=== PATIENT | female | born 1970 | race Caucasian/White ===

== ENCOUNTER → 2018-01-01 12:25 | Outpatient (CLI) | payer OTHER, SELFPAY ==
--- NOTE | 2018-01-01 12:28 | BI_ITS ---
MAMMOGRAPHY - BILATERAL SCREENING REASON FOR EXAM: Female, 47 years old. Routine annual screening examination. PERTINENT HISTORY: Non-contributory. TECHNIQUE: Digital bilateral breast severo (3D mammographic acquisition) in the CC and MLO projections. 2-D mediolateral oblique (MLO) and craniocaudad (CC) views of both breasts were obtained. CAD: Full Field Digital Mammography with Computer Added Detection was performed. COMPARISON: Comparison is made with prior study dated August 20, 2016. FINDINGS: Breast Composition: There are scattered areas of fibroglandular density. There are no dominant masses or suspicious calcifications. No other significant abnormalities are identified. There has been no significant change since the prior study. BI/SCREENING MAMM (CAD), BILAT IMPRESSION: Stable bilateral screening mammogram. Yearly follow-up mammogram recommended. (A) ASSESSMENT CATEGORY: BIRADS Category 1: Negative. A letter regarding these results will be sent to the patient by the facility within 30 days. Approximately 10% of breast cancers are not detected by mammography. A normal mammogram should not delay biopsy of a clinically suspicious abnormality. [id number] Electronically Signed: Farhad Menjivar MD at 13:58 EDT Tel [phone], Service support ,
== END ==
PROVIDERS: Family Provider Nurse Practitioner; PCP Nurse Practitioner; Visit Provider Nurse Practitioner
DX: Z12.31 Encounter for screening mammogram for malignant neoplasm of breast (principal)
CPT/HCPCS: 77063; 77067

== ENCOUNTER → 2019-01-25 | Outpatient (CLI) | payer OTHER, SELFPAY ==
--- NOTE | 2019-01-25 16:23 | BI_ITS ---
MAMMOGRAPHY - BILATERAL SCREENING REASON FOR EXAM: Female, 48 years old. Routine annual screening examination. PERTINENT HISTORY: Grandmother with breast cancer. TECHNIQUE: Digital bilateral breast severo (3D mammographic acquisition) in the CC and MLO projections. 2-D mediolateral oblique (MLO) and craniocaudad (CC) views of both breasts were obtained. CAD: Full Field Digital Mammography with Computer Added Detection was performed. COMPARISON: Comparison is made with prior examination dated January 01, 2018 and August 20, 2016. FINDINGS: Breast Composition: There are scattered areas of fibroglandular density. There are no dominant masses or suspicious calcifications. No other significant abnormalities are identified. There has been no significant change since the prior study. BI/SCREENING MAMM (CAD), BILAT IMPRESSION: Stable bilateral screening mammogram. Yearly follow-up mammogram recommended. (A) ASSESSMENT CATEGORY: BIRADS Category 1: Negative. A letter regarding these results will be sent to the patient by the facility within 30 days. Approximately 10% of breast cancers are not detected by mammography. A normal mammogram should not delay biopsy of a clinically suspicious abnormality. [id number] Electronically Signed: Farhad Menjivar, at 8:06 EDT , Service support ,
== END | disposition home or self-care (01) ==
LOC: OPBI 16:22
PROVIDERS: Family Provider Nurse Practitioner; PCP Nurse Practitioner; Referring Provider Nurse Practitioner; Visit Provider Nurse Practitioner
DX: Z12.31 Encounter for screening mammogram for malignant neoplasm of breast (principal)
CPT/HCPCS: 77063; 77067

== ENCOUNTER → 2019-06-27 12:38 | Outpatient (CLI) | payer OTHER, SELFPAY ==
--- NOTE | 2019-06-27 12:43 | RAD_ITS ---
STUDY: X-RAY CHEST REASON FOR EXAM: Female, 49 years old. Cough. History of asthma. TECHNIQUE: PA and lateral views of the chest. COMPARISON: Comparison is made with prior study July 09, 2015. FINDINGS: There now is evidence of infiltration in the right lower lobe. Follow-up is recommended. There is no demonstrated pleural abnormality. Normal size heart. Normal mediastinum and vasquez. Normal visualized pulmonary arteries. Normal visualized aortic arch and descending thoracic aorta. Normal visualized thoracic spine. Normal visualized ribs, clavicles, and shoulders. There is no demonstrated abnormality of the visualized soft tissue structures of the upper abdomen. RAD/Chest PA and Lateral IMPRESSION: Right lower lobe infiltration. Follow-up is recommended. Electronically Signed: Farhad Menjivar, at 13:38 EDT , Service support ,
== END ==
PROVIDERS: Family Provider Nurse Practitioner; PCP Nurse Practitioner; Referring Provider Nurse Practitioner Gerontology; Visit Provider Nurse Practitioner Gerontology
DX: R05 Cough (principal)
CPT/HCPCS: 71046

== ENCOUNTER → 2020-04-23 12:04 | Outpatient (CLI) | payer OTHER, SELFPAY ==
--- NOTE | 2020-04-23 12:07 | BI_ITS ---
MAMMOGRAPHY - BILATERAL SCREENING REASON FOR EXAM: Female, 50 years old. Routine annual screening examination. PERTINENT HISTORY: Grandmother with breast cancer. TECHNIQUE: Digital bilateral breast stefania (3D mammographic acquisition) in the CC and MLO projections. 2-D mediolateral oblique (MLO) and craniocaudad (CC) views of both breasts were obtained. CAD: Full Field Digital Mammography with Computer Added Detection was performed. COMPARISON: Comparison is made with prior study dated 01/25/2019 and 01/01/2018. FINDINGS: Breast Composition: There are scattered areas of fibroglandular density. There are no dominant masses or suspicious calcifications. Stable small benign appearing bilateral axillary lymph nodes. No other significant abnormalities are identified. There has been no significant change since the prior study. BI/SCREEN MAMM (CAD) W/STEFANIA BILAT IMPRESSION: Stable bilateral screening mammogram. Yearly follow-up mammogram recommended. (A) ASSESSMENT CATEGORY: BIRADS Category 2: Benign. A letter regarding these results will be sent to the patient by the facility within 30 days. Approximately 10% of breast cancers are not detected by mammography. A normal mammogram should not delay biopsy of a clinically suspicious abnormality. [id number] Electronically Signed: Farhad Menjivar, at 13:03 EDT , Service support ,
== END ==
PROVIDERS: PCP Nurse Practitioner; Referring Provider Nurse Practitioner; Visit Provider Nurse Practitioner
DX: Z12.31 Encounter for screening mammogram for malignant neoplasm of breast (principal)
CPT/HCPCS: 77063; 77067

== ENCOUNTER 2021-10-16 15:26 | Outpatient (CLI) | payer OTHER, SELFPAY ==
--- NOTE | 2021-10-16 15:30 | BI_ITS ---
MAMMOGRAPHY - BILATERAL SCREENING REASON FOR EXAM: Female, 51 years old. Routine annual screening examination. PERTINENT HISTORY: Grandmother with breast cancer. TECHNIQUE: Digital bilateral breast stefania (3D mammographic acquisition) in the CC and MLO projections. 2-D mediolateral oblique (MLO) and craniocaudad (CC) views of both breasts were obtained. CAD: Full Field Digital Mammography with Computer Added Detection was performed. COMPARISON: Comparison is made with prior study dated 04/23/2020 and 01/25/2019. FINDINGS: Breast Composition: The breasts are almost entirely fatty. There are no dominant masses or suspicious calcifications. No other significant abnormalities are identified. There has been no significant change since the prior study. BI/SCRN MAMM (CAD)W/STEFANIA BILAT IMPRESSION: Stable bilateral screening mammogram. Yearly follow-up mammogram recommended. (A) ASSESSMENT CATEGORY: BIRADS Category 1: Negative. A letter regarding these results will be sent to the patient by the facility within 30 days. Approximately 10% of breast cancers are not detected by mammography. A normal mammogram should not delay biopsy of a clinically suspicious abnormality. [id number] Electronically Signed: Farhad Menjivar MD at 8:27 EST ,
== END 2021-10-16 23:59 | disposition short-term general hospital (02) ==
LOC: OPBI 15:27
PROVIDERS: PCP Nurse Practitioner; Visit Provider Nurse Practitioner
DX: Z12.31 Encounter for screening mammogram for malignant neoplasm of breast (principal)
CPT/HCPCS: 77063; 77067

== ENCOUNTER → 2022-02-21 | Outpatient (CLI) | payer OTHER, SELFPAY ==
[2022-02-21 15:17] LABS: Absolute Lymphocyte Count 1.72 X10^3/uL (0.83-4.51); Absolute Neutrophil Count 5.8 X10^3/uL (2.0-7.7); Basophil# 0.08 X10^3/uL; Basophil% 0.9 % (0-1); Eosinophil# 0.23 X10^3/uL; Eosinophils% 2.6 % (0-5); Hematocrit 39.4 % (37-47); Hemoglobin 13.1 g/dL (12.0-15.0); Lymphocyte # 1.72 X10^3/ul (0.83-4.51); Lymphocyte % 19.7 % (19-41); Mean Corp Hgb Conc 33.2 g/dL (32-36); Mean Corpuscular Hgb 31.7 pg (27.0-32.0); Mean Corpuscular Volume 95.4 fL (81-99); Mean Platelet Vol. 9.6 fl (6.2-12.0); Monocyte# 0.85 X10^3/uL; Monocyte% 9.8 % (0-10); NRBC Flagged by Analyzer 0 % (0-5); Neutrophil % 66.7 % (47-70); Platelet Count 227 K/mm3 (150-450); RBC Distribution Width CV 12.9 % (11.6-14.6); RBC Distribution Width SD 45.5 fl (35.1-43.9); Red Blood Count 4.13 M/mm3 (4.2-5.4); White Blood Count 8.7 K/mm3 (4.4-11.0)
== END | disposition home or self-care (01) ==
LOC: MTLAB 12:34
PROVIDERS: PCP Nurse Practitioner; Referring Provider Internal Medicine Pulmonary Disease; Visit Provider Internal Medicine Pulmonary Disease
DX: J45.40 Moderate persistent asthma, uncomplicated (principal)
CPT/HCPCS: 36415; 85025

== ENCOUNTER → 2022-04-08 | Outpatient (CLI) | payer OTHER, SELFPAY ==
[2022-04-08 15:36] LABS: Creatinine, Serum 0.75 mg/dL (0.55-1.02); EST Glomerular Filtration Rate 88 mL/min (>60); Est Glom Filt Rate - Afr Amer 106 mL/min (>60)
[2022-04-08 16:26] LABS: Anion Gap 8 (5-15); BUN 10 mg/dL (7-18); BUN/Creat Ratio 13.4 RATIO (10-20); Calcium,Total 9.2 mg/dL (8.5-10.1); Chloride 102 mmol/L (98-107); Glucose 87 mg/dL (74-106); Potassium 4.1 mmol/L (3.5-5.1); Sodium Level 136 mmol/L (136-145)
== END | disposition home or self-care (01) ==
LOC: MTLAB 13:08
PROVIDERS: PCP Nurse Practitioner Family; Referring Provider Internal Medicine Pulmonary Disease; Visit Provider Internal Medicine Pulmonary Disease
DX: U07.1 COVID-19 (principal)
CPT/HCPCS: 36415; 80048

== ENCOUNTER 2022-08-29 05:58 | Day surgery (SDC) | payer OTHER, SELFPAY ==
[2022-08-29] VITALS (12 sets, daily range): BP systolic 113–154; BP diastolic 62–92; PULSE 14–85; RESP 14–18; TEMP 36.1–36.7; O2SAT 96–100; BMI 38.6
[2022-08-29] MEDS: Lactated Ringers 1,000 ML 15 ML IV (06:44)
[2022-08-29 06:47] LABS: Internal QC Validated? YES +Cl - CLEAR BKGD; Pregnancy, Urine Negative Negative
--- NOTE | 2022-08-29 07:20 | RAD_ITS ---
STUDY: X-RAY - RIGHT ANKLE REASON FOR EXAM: Female, 52 years old. ANKLE ARTHROSCOPY, LATERAL STABILIZATION TECHNIQUE: 4 view(s) of the ankle. No exposure time in minutes: Seconds 46 seconds. COMPARISON: None. FINDINGS: Reason fluoroscopic lateral views are provided. In the field of view there is visualized circumscribed calcification posterior to the ankle joint. On one view there is a visualized hand and the [id number]. RAD/Ankle min 3 Views IMPRESSION: Image interpretation only Visualized right ankle and lateral view on fluoroscopy during a procedure. Electronically Signed: Shraddha La MD at 16:18 EST Reading Location ID and State: [facility] / [place] Tel , Service support ,
[2022-08-29] MEDS: Clindamycin 900 MG/50 ML BAG 75 MG IV (07:30)
[2022-08-29] MEDS: Bacitracin 500 UNITS/GM PACKET (09:25)
[2022-08-29] MEDS: Bupivacaine 0.25% 30 ML Vial (09:30)
--- NOTE | 2022-08-29 09:37 | PCM.OPRPT ---
Problems Associated Problem List Diagnoses (1) Ankle impingement syndrome, right: (2) Primary osteoarthritis, right ankle and foot: (3) Right ankle instability: (4) Ingrowing nail: Report of Operation Date of Procedure: 08/29/22 Pre-Operative Diagnosis: 1. Right anterior ankle impingement in setting of osteoarthritis 2. Right lateral ankle instability 3. Ingrowing toenail left medial hallux Post-Operative Diagnosis: Same Surgery/Procedure Performed:: Ankle arthroscopy right ankle Lateral ankle stabilization right Left medial hallux matrixectomy Description of Surgical Findings:: Patient had chronic left lateral ankle instability with previous history of osteochondral grafting to her talar dome when she was 18 years old she has had continued pinching pain to her anterior ankle with multiple arthroscopic debridements and a lateral ankle instability issue which frequently cause her her to trip and fall and feels unstable when walking throughout everyday life. MRI demonstrated remote sprains of the ATFL CFL ligaments with thinning of the articular cartilage and anterior ankle impingement. Decision was made for arthroscopic debridement and lateral ankle stabilization. Surgeon: Cheng Burrell hand grinder: None (zaria elizondo) Type of Anesthesia: General Special Medications: Preoperatively patient received a popliteal Specimen's removed: Note Drains: None Estimated Blood Loss (mL): Minimal Description of Procedure: Patient brought back the operating placed comfortably in supine position on the operating room table. Patient induced under general anesthesia. Preoperative patient received a right lower extremities popliteal block per anesthesia. All osseous prominences were offloaded prevent any compression neuropraxia's. Right lower extremity was position without any external rotation of the limb. Well-padded thigh tourniquet was applied. Right lower extremity was scrubbed prepped draped using typical aseptic manner. Right lower extremity was elevated exsanguinated tourniquet was inflated 300 mmHg total tourniquet time throughout the case was noted to be 72 minutes. Palpation of the anteromedial joint ankle joint just medial to the tibialis anterior was performed a stab incision was made with a #11 blade hemostats were used to deepen the incision down to the level of capsule capsule was penetrated with obturator and cannula fara scope was applied significant synovitis were noted the joint was insufflated with following saline at approximately 40 mmHg is noted to be significant chronic synovitis to the area 8-second portals made anterior lateral ankle joint avoiding the intermediate dorsal cutaneous nerve and tendon structures to that site. Synovitis was debrided for approximately 25 minutes improvement and anterior ankle joint impingement was noted floor with intraoperatively there is noted to be anterior articular cartilage thinning both on the talar and tibial components of the ankle joint. Incisions were flushed copious felix normal sterile saline and closed with 3-0 Prolene simple interrupted. Attention was taken to the lateral ankle which fluoroscopic imaging was used to assess the lateral ankle ligaments anterior drawer testing demonstrated significant stability the ankle as documented under fluoroscopic images. Lateral ankle incision was made in a curvilinear fashion over the distal tip of the fibula with a 15 blade this was deepened with blunt dissection down to the level of the extensor retinaculum and ATFL a full-thickness incision was made along this with the deep structures were protected by hemostats releasing the residual torn ATFL ligament as well as incompetent inferior extensor retinaculum. All neurovascular structures were identified and bluntly retracted and protected at this time. Talar dome anterior brace was placed anchor using manufactures guidelines and the anterior lateral talar dome. Using the guide. Next 2 fiber tacks were placed 1 cm apart along the inferior and just 1 cm superior along the distal tip of the fibula anterior surface. This performed using manufactures guidelines. These were passed through the ATFL ligament and through the residual periosteal flap and is attached to the fibula including the stump of the ATFL and inferior extensor retinaculum using a pants over vest technique. These were hand tied down and ankle stability was noted at this time Next the second anchor for the internal brace was placed in the fibula just superior here and in between the fiber tack placement this was placed using manufactures guidelines with the foot placed in a neutral position and the lateral ankle ligaments were noted to be reestablished with regards to ankle stability confirmed fluoroscopically. Should be noted the fiber tacks were secured with the foot placed in a dorsiflexed and everted position. Patient flushed with copious felix normal sterile saline. Tourniquet was let down. Subcutaneous deep closure simple interrupted buried 2-0 Vicryl skin closure performed with 3-0 Prolene horizontal mattress technique. Incision dressed with bacitracin Adaptic 4 x 4's Kerlix and a well-padded Soliman compression posterior splint. Attention was taken to the left foot which a medial hallux matrixectomy would be performed using a hallux block technique performed aseptically after the toe on the left side was prepped with Betadine paint 8 cc of quarter percent Marcaine plain were injected using standard hallux block technique. The medial and proximal nail folds were released as well as the nailbed was from the medial aspect of the nail plate using a spatula this was removed using hemostats site was curetted and then a matrixectomy was performed using electrocautery Bovie. Site was flushed copious felix normal saline stress with bacitracin 4 x 4's and Coban. Patient was transferred to PACU vital signs stable and vascular status intact all digits for further monitoring prior to discharge patient tolerated procedure and anesthesia well in apparent satisfactory condition should remain nonweightbearing for the next 2 weeks and progress to weightbearing in a cam boot patient will be followed up in 1 week at which time we will change her dressing.
== END 2022-08-29 14:01 | disposition home or self-care (01) ==
LOC: SDC 06:00 → AC 06:01
PROVIDERS: Anesthesiology; PCP Nurse Practitioner Family; Referring Provider Podiatrist; Visit Provider Podiatrist
PROC: (CPT 11750; principal; 2022-08-29 07:15)
DX: M19.071 Primary osteoarthritis, right ankle and foot (principal); M25.371 Other instability, right ankle; L60.0 Ingrowing nail; J45.909 Unspecified asthma, uncomplicated; M25.871 Other specified joint disorders, right ankle and foot
CPT/HCPCS: 28289; 01480; 29897; 73610; 76000; 81025; J7120; J2405

== ENCOUNTER → 2022-09-03 | Outpatient (CLI) | payer OTHER, SELFPAY ==
--- NOTE | 2022-09-03 14:12 | VDLE_ITS ---
Reason For Study: PAIN RIGHT LEFT GSV is normal. GSV is normal. CFV is compressible, spontaneous, phasic, CFV is compressible, spontaneous, phasic, competent and demonstrates normal competent, and demonstrates normal augmentation. augmentation. FV is compressible, spontaneous, phasic, FV is compressible, spontaneous, phasic, competent and demonstrates normal competent and demonstrates normal augmentation. augmentation. POP V is compressible, spontaneous, phasic, POP V is compressible, spontaneous, phasic, competent and demonstrates normal competent and demonstrates normal augmentation. augmentation. T/P Trunk is compressible. T/P Trunk is compressible. PTV is compressible. PTV is compressible. RT PerV is compressible. LT PerV is compressible. Procedure This is a venous duplex using B-mode, color flow and spectral Doppler. Exam performed in department. The study was technically difficult. A preliminary report was called and/or faxed to Dr. Burrell @ [phone]. VL/Venous Duplex US - Kael Extrem Interpretation Summary Deep veins of the lower extremities are bilaterally patent and compressible seg mentally. There is no evidence of deep vein thrombosis on either side. Valvular competence appears in tact within the proximal deep venous systems bilaterally. The great saphenous veins appear bila terally patent and compressible segmentally. Ordering Physician: Cheng Burrell Referring Physician: Zahraa Ivey Performed By: Myra Alvarez, MIACS, RVT
== END | disposition home or self-care (01) ==
LOC: CVS 14:10
PROVIDERS: PCP Nurse Practitioner Family; Referring Provider Podiatrist; Visit Provider Podiatrist
DX: R22.43 Localized swelling, mass and lump, lower limb, bilateral (principal)
CPT/HCPCS: 93970

== ENCOUNTER → 2022-09-25 | Outpatient (CLI) | payer OTHER, SELFPAY | END | disposition home or self-care (01) | PROVIDERS: PCP Nurse Practitioner Family; Visit Provider Podiatrist | DX: L03.114 Cellulitis of left upper limb (principal) | CPT/HCPCS: 87070; 87205 ==

== ENCOUNTER → 2022-11-12 | Outpatient (CLI) | payer OTHER, SELFPAY ==
[2022-11-12 08:32] LABS: Cholesterol 181 mg/dL (200); High Density Lipoprotein 67 mg/dL; Triglycerides 43 mg/dL; Very Low Density Lipoprotein 9 mg/dL (5-40)
[2022-11-12 08:45] LABS: PTHIN 61.7 pg/mL (18.4-80.1)
== END | disposition home or self-care (01) ==
LOC: LAB 06:40
PROVIDERS: PCP Nurse Practitioner Family; Referring Provider Nurse Practitioner Family; Visit Provider Nurse Practitioner Family
DX: R73.01 Impaired fasting glucose (principal); E78.5 Hyperlipidemia, unspecified; E55.9 Vitamin D deficiency, unspecified
CPT/HCPCS: 36415; 80061; 83036; 83970

== ENCOUNTER → 2023-02-26 | Outpatient (CLI) | payer OTHER, SELFPAY ==
--- NOTE | 2023-02-26 12:43 | BI_ITS ---
MAMMOGRAPHY - BILATERAL SCREENING REASON FOR EXAM: Female, 52 years old. Routine annual screening examination. PERTINENT HISTORY: Grandmother with breast cancer. TECHNIQUE: Digital bilateral breast stefania (3D mammographic acquisition) in the CC and MLO projections. 2-D mediolateral oblique (MLO) and craniocaudad (CC) views of both breasts were obtained. CAD: Full Field Digital Mammography with Computer Added Detection was performed. COMPARISON: Comparison is made with prior study of October 16, 2021 and April 23, 2020. FINDINGS: Breast Composition: There are scattered areas of fibroglandular density. There are no dominant masses or suspicious calcifications. No other significant abnormalities are identified. There has been no significant change since the prior study. BI/SCRN MAMM (CAD)W/STEFANIA BILAT IMPRESSION: Stable bilateral screening mammogram. Yearly follow-up mammogram recommended. (A) ASSESSMENT CATEGORY: BIRADS Category 1: Negative. A letter regarding these results will be sent to the patient by the facility within 30 days. Approximately 10% of breast cancers are not detected by mammography. A normal mammogram should not delay biopsy of a clinically suspicious abnormality. [id number] Electronically Signed: Farhad Menjivar MD at 14:51 EDT ,
== END | disposition home or self-care (01) ==
LOC: OPBI 12:40
PROVIDERS: PCP Nurse Practitioner Family; Referring Provider Nurse Practitioner Family; Visit Provider Nurse Practitioner Family
DX: Z12.31 Encounter for screening mammogram for malignant neoplasm of breast (principal); Z80.3 Family history of malignant neoplasm of breast
CPT/HCPCS: 77063; 77067

== ENCOUNTER → 2023-03-14 | Outpatient (CLI) | payer OTHER, SELFPAY ==
--- NOTE | 2023-03-14 08:54 | MRI_ITS ---
INDICATION: pain ax 3 months, worse x 1 month, pain location changes with different movenments EXAMINATION: MRI - LEFT MR Knee W/O Contrast TECHNIQUE: Multiplanar and multisequence MR images of the LEFT knee. IV Contrast Dosage and Agent: None. COMPARISON: March 21, 2013 left knee MRI. March 04, 2023, knee radiograph. FINDINGS: BONE: No fracture or abnormal bone marrow signal. JOINT: Moderate effusion with mild synovial hypertrophy. No focal low signal intra-articular body. Fat lobule within 2.4 x 1.6 x 2.9 cm Sanchez''s cyst.. MUSCLES: Pes anserine tendons, semimembranosus, gastrocnemius tendons are intact.. CRUCIATE LIGAMENTS: Anterior and posterior cruciate ligaments are intact. PATELLOFEMORAL COMPARTMENT: The quadriceps and patellar tendons are intact. Patellofemoral ligaments are intact. Lateral patellar facet chondral fissure noted, grade 2 without subchondral edema. Fraying along the medial patellar facet chondral surface, grade 2. MEDIAL COMPARTMENT: Intact meniscus. Thickening of the proximal medial collateral ligament compatible with prior injury with mild edema along the superficial margin. Mild diffuse chondral thinning without focal full-thickness loss or subchondral edema. LATERAL COMPARTMENT: Intact meniscus. Intact lateral collateral ligament complex and popliteus. Mild diffuse chondral thinning without full thickness chondral loss or subchondral edema. MRI/Lower Ext Joint Only (Routine) IMPRESSION: Nonspecific moderate knee joint effusion with 2.9 cm Sanchez''s cyst. 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 No subchondral edema. Sequela of prior MCL injury with mild edema along the superficial margin. Cannot exclude grade 1 MCL sprain if there is been new injury. Electronically Signed: Mitch Grider MD at 8:54 EDT ,
== END | disposition home or self-care (01) ==
LOC: MRI 08:44
PROVIDERS: PCP Nurse Practitioner Family; Referring Provider Orthopaedic Surgery; Visit Provider Orthopaedic Surgery
DX: M23.90 Unspecified internal derangement of unspecified knee (principal)
CPT/HCPCS: 73721

== ENCOUNTER → 2023-06-26 | Outpatient (CLI) | payer OTHER, SELFPAY ==
[2023-06-26 09:00] LABS: Follicle Stimulating Hormone 60.1 mIU/mL; Luteinizing Hormone 22.4 mIU/mL; Prolactin 24.4 ng/mL; Thyroid Stim Hormone (TSH) 2.16 uIU/mL (0.358-3.74)
[2023-06-27 04:07] LABS: DHEA Sulfate 10.2 ug/dL (41.2-243.7)
== END | disposition home or self-care (01) ==
LOC: LAB 07:27
PROVIDERS: PCP Nurse Practitioner Family; Referring Provider Nurse Practitioner Family; Visit Provider Nurse Practitioner Family
DX: N95.1 Menopausal and female climacteric states (principal)
CPT/HCPCS: 36415; 82627; 83001; 83002; 84146; 84443; 82626

== ENCOUNTER → 2023-08-11 | Outpatient (CLI) | payer OTHER, SELFPAY ==
--- NOTE | 2023-08-11 15:19 | BD_ITS ---
STUDY: DUAL ENERGY X-RAY ABSORPTIOMETRY / DXA REASON FOR EXAM: Female, 53 years old. [id number] TECHNIQUE: Bone Mineral Density (BMD) measurements of lumbar spine and bilateral hips were obtained. COMPARISON: None. FINDINGS: Lumbar Spine (L1-L4): g/cm2 (1.383) / T-score (3.1) / Z-score (3.9) Findings are suggestive of normal bone density with a low fracture risk. Left Femur Total: g/cm2 (1.171) / T-score (1.9) / Z-score (2.4) Left Femoral Neck: g/cm2 (1.086) / T-score (2.1) / Z-score (3.0) Right Femur Total: g/cm2 (1.214) / T-score (2.2) / Z-score (2.7) Right Femoral Neck: g/cm2 (1.133) / T-score (2.6) / Z-score (3.4) BD/Dexa Bone Density Study IMPRESSION: The patient is considered normal as outlined below according to World Kael Organization (WHO) criteria with a low fracture risk. Reference Information: The T-score is the number of standard deviations above or below the standard which is normal for young adults at their peak bone mineral density. The World Health Organization (WHO) interprets the T-scores as follows: Above -1 Normal bone density Between -1 and -2.5 Osteopenia Equal to / or below -2.5 Osteoporosis As a practical clinical guideline, osteopenia may be graded as follows: Mild -1 through -1.5 Moderate -1.6 through -2.0 Severe -2.1 through -2.4 The Z-score is the number of standard deviations above or below age-matched controls. A Z-score of less than -1.5 would be considered abnormal. References: 1. NIH Osteoporosis and Related Bone Diseases www osteo.org 2. International Society for Clinical Densitometry www iscd.org 3. National Osteoporosis Foundation www nof.org Electronically Signed: Farhad Menjivar MD at 14:30 EST ,
== END | disposition home or self-care (01) ==
LOC: OPBD 15:12
PROVIDERS: PCP Nurse Practitioner Family; Referring Provider Nurse Practitioner Family; Visit Provider Nurse Practitioner Family
DX: Z78.0 Asymptomatic menopausal state (principal)
CPT/HCPCS: 77080

== ENCOUNTER → 2024-04-04 | Outpatient (CLI) | payer OTHER, SELFPAY ==
--- NOTE | 2024-04-04 10:32 | BI_ITS ---
MAMMOGRAPHY - BILATERAL SCREENING REASON FOR EXAM: Female, 53 years old. Routine annual screening examination. PERTINENT HISTORY: Grandmother with breast cancer. TECHNIQUE: Digital bilateral breast stefania (3D mammographic acquisition) in the CC and MLO projections. 2-D mediolateral oblique (MLO) and craniocaudad (CC) views of both breasts were obtained. CAD: Full Field Digital Mammography with Computer Added Detection was performed. COMPARISON: Comparison is made with prior study dated February 26, 2023 and October 16, 2021. FINDINGS: Breast Composition: There are scattered areas of fibroglandular density. There are no dominant masses or suspicious calcifications. No other significant abnormalities are identified. There has been no significant change since the prior study. BI/SCRN MAMM (CAD)W/STEFANIA BILAT IMPRESSION: Stable bilateral screening mammogram. Yearly follow-up mammogram recommended. (A) ASSESSMENT CATEGORY: BIRADS Category 1: Negative. A letter regarding these results will be sent to the patient by the facility within 30 days. Approximately 10% of breast cancers are not detected by mammography. A normal mammogram should not delay biopsy of a clinically suspicious abnormality. [id number] Electronically Signed: Farhad Menjivar MD at 11:15 EDT ,
== END | disposition home or self-care (01) ==
LOC: OPBI 10:32
PROVIDERS: PCP Nurse Practitioner Family; Referring Provider Nurse Practitioner Family; Visit Provider Nurse Practitioner Family
DX: Z12.31 Encounter for screening mammogram for malignant neoplasm of breast (principal); Z80.3 Family history of malignant neoplasm of breast
CPT/HCPCS: 77063; 77067

== ENCOUNTER → 2024-06-02 | Outpatient (CLI) | payer OTHER, SELFPAY ==
[2024-06-02 07:49] LABS: Absolute Lymphocyte Count 1.57 X10^3/uL (0.83-4.51); Absolute Neutrophil Count 5.9 X10^3/uL (2.0-7.7); Basophil# 0.01 X10^3/uL; Basophil% 0.1 % (0-1); Hematocrit 40.6 % (37-47); Hemoglobin 13.4 g/dL (12.0-15.0); Lymphocyte # 1.57 X10^3/ul (0.83-4.51); Lymphocyte % 19.2 % (19-41); Mean Corpuscular Hgb 30.3 pg (27.0-32.0); Mean Corpuscular Volume 91.9 fL (81-99); Monocyte# 0.71 X10^3/uL; Monocyte% 8.7 % (0-10); NRBC Flagged by Analyzer 0 % (0-5); Neutrophil # 5.85 X10^3/uL (2.7-7.7); Neutrophil % 71.5 % (47-70); Platelet Count 247 K/mm3 (150-450); RBC Distribution Width CV 13.2 % (11.6-14.6); Red Blood Count 4.42 M/mm3 (4.2-5.4); White Blood Count 8.2 K/mm3 (4.4-11.0)
[2024-06-02 07:56] LABS: International Normalized Ratio 1.1; Prothrombin Time (Protime)PT. 13.7 SECONDS (11.7-14.9)
[2024-06-02 07:57] LABS: Partial Thromboplast Time 27.5 Seconds (24.1-36.2)
[2024-06-02 08:17] LABS: Color, Urine Yellow (Yellow); Glucose, Dipstick Normal (Normal); Ketone-Dipstick Negative (Negative); Leukocyte Esterase-Dipstick 100 /ul (Negative); Nitrite-Dipstick Negative (Negative); Occult Blood-Urine Negative /ul (Negative); Protein-Dipstick 15 mg/dl (Negative); Specific Gravity, Urine 1.015 (1.002-1.030); Urine Bilirubin Dipstick Negative (Negative); Urine Clarity Sl. Cloudy (Clear); Urine Urobilinogen Normal (Normal); Urine pH 6.5 (5.0 - 8.0)
[2024-06-02 08:26] LABS: ALB/GLOB Ratio 1.1 RATIO (0.9-2.4); AST(SGOT) 18 U/L (15-37); Alanine Aminotransfer ALT/SGPT 28 U/L (13-56); Albumin, Serum 3.5 g/dL (3.2-5.0); Alkaline Phosphatase 92 U/L (45-117); Anion Gap 2 (5-15); BUN 14 mg/dL (7-18); BUN/Creat Ratio 18.7 RATIO (10-20); CRP 4.59 mg/L (0.0-3.0); Calcium,Total 8.8 mg/dL (8.5-10.1); Chloride 105 mmol/L (98-107); Cholesterol 188 mg/dL (200); Creatinine, Serum 0.75 mg/dL (0.55-1.02); EST Glomerular Filtration Rate 86 mL/min (>60); Est Glom Filt Rate - Afr Amer 104 mL/min (>60); Globulin 3.3 g/dL (2.2-4.2); Glucose 120 mg/dL (74-106); High Density Lipoprotein 67 mg/dL; Protein, Total 6.8 g/dL (6.4-8.2); Sodium Level 136 mmol/L (136-145); Triglycerides 55 mg/dL; Very Low Density Lipoprotein 11 mg/dL (5-40)
[2024-06-02 08:37] LABS: Hemoglobin A1c 5.4 % (3.8-5.6)
[2024-06-02 08:51] LABS: Microalbumin,Random Urine 6.5 mg/L (NO RANGE EST.); Microalbumin:Creatinine Ratio 3.5 mg/g CRE (<30 mg/g CRE)
== END | disposition home or self-care (01) ==
LOC: LAB 07:09
PROVIDERS: PCP Nurse Practitioner Family; Referring Provider Nurse Practitioner Family; Visit Provider Nurse Practitioner Family
DX: E78.5 Hyperlipidemia, unspecified (principal); R73.03 Prediabetes; E55.9 Vitamin D deficiency, unspecified; R03.0 Elevated blood-pressure reading, without diagnosis of hypertension; T14.8XXA Other injury of unspecified body region, initial encounter
CPT/HCPCS: 36415; 80053; 80061; 81002; 82043; 82570; 83036; 84443; 85025; 85610; 85730; 86140

== ENCOUNTER 2024-07-14 16:00 | Outpatient (RCR) | payer OTHER, SELFPAY ==
--- NOTE | 2024-04-12 14:31 | HP.OTEVAL_ITS ---
Patient's Visit Information Visit Information Visit Information: ONEAL ZABALA is a 54 year old F, referred to Occupational Therapy by Toshia Green MD, with a diagnosis of lymphedema. Date of Evaluation: 04/11/24 Occupational Therapist: Mary Chew, OTR/Sheila, CHT Subjective Subjective: This 54 year old female was seen for OT eval dx with LE lymphedema. 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 pt states she has had a number of issues with varicose vein. pt states she had vain stripping and was wearing thigh-high compression shocks after vain stripping for two weeks ( states they were 20-30mmHg) pt states she has not been wearing compression socks since she was cleared - states legs really have not changed much she continues to get swelling- states swelling is down typically in the AM. 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 swelling. Lymphedema (Circumferential Measure) Mid-foot: 23.5cm left 23cm Ankle: right 29cm left 29cm Lower calf: right 40cm left 37cm Largest calf: right 48 left 49cm Below knee: right 46cm left 46cm Lower Limb Functional Index Lower Extremity Functional Score: 47 Goals Goal: Patient will demonstrate a 20% reduction in edema by discharge: Yes Goal: Patient will demonstrate adequate knowledge of self-massage by the end of the second week.: Yes Goal: Patient will demonstrate adequate knowledge of skin care and precautions by the end of the first week.: Yes Goal: Patient will demonstrate adequate knowledge of therapeutic exercises by discharge.: Yes Goal: Patient will select an appropriate compression garment and demonstrate adequate knowledge of correct donning technique, care and wearing schedule by discharge.: Yes Goal: Patient will voice understanding of need to replace compression garment every four to six months by discharge.: Yes Rehabilitation General Assessment: pt demo with bilateral LE edema. Pt demo need for skilled OT services 3-4 visits to ed. on life long mtg. of lymphedema, measure for fabiola derrek garments- ed. pt on compression alternatives as well as looking into a pump to assist in circulation of fluid. Today therapist ed. pt on medical grade compression socks ( 20-30mmHg) as well as use of Velcro closure device at night to assist in mtg. pt was ed. on lymph stimulation ex and self manual lymph massage- pt to get new compression socks and initiate ex.- advised water aerobics is also good for circulation pt is receptive - pt to return in 2 weeks for measurments- if no change will discuss possible numeric device. pt receptive and agree to POC. Rehabilitation Potential: Good Anticipated Interventions Anticipated Interventions: Education re Life-long lymphedema Management, Education re Skin Care and Precautions, Education re Self Massage Techniques, Education re Correct Donning Tech,Care&Wearing Sched Comp Garments and Home Program Visit Plan TEXT: Thank you for the opportunity to evaluate your patient. For Medicare and Medicare HMO plans, please review the plan of care and approve it. It will need to be FAXED BACK to us at [phone] for Medicare purposes. Please let me know if there are questions or concerns regarding this plan of care. Physician Signature: Date:
--- NOTE | 2024-07-14 16:08 | HP.OTREVAL ---
Re-Evaluation Intro: Toshia Green MD, It has been my pleasure to treat ONEAL ZABALA over the last 4 visits for lymphedema. Please see the progress note below for an update on the occupational therapy plan of care! Subjective Subjective: pt arrives 9 min early started session early. update of information this date pt to potentially get pump. Objective Objective/Function: wears stockings BLEs to knee level 20-30 compression value doing LE exercise as well as lymph massage fluctuating swelling at this time mid foot R 24 cm L 24 cm ankle R 31 cm L 29 cm lower calf R 35 cm L 37 cm largest calf R 51 cm L 51 cm below knee R 49 cm L 49 cm Plan Plan Visits in this POC: 3-4 visits Plan: compression garment lymph massage LE exercise Goals Goals Goal: Patient will demonstrate a 20% reduction in edema by discharge: Yes Goal: Patient will demonstrate adequate knowledge of self-massage by the end of the second week.: Yes Goal: Patient will demonstrate adequate knowledge of skin care and precautions by the end of the first week.: Yes Goal: Patient will demonstrate adequate knowledge of therapeutic exercises by discharge.: Yes Goal: Patient will select an appropriate compression garment and demonstrate adequate knowledge of correct donning technique, care and wearing schedule by discharge.: Yes Goal: Patient will voice understanding of need to replace compression garment every four to six months by discharge.: Yes Patient Goals: Learn how to Manage Lymphedema and Learn how to Apply Compression Stockings Anticipated Interventions Anticipated Interventions Anticipated Interventions: Education re Life-long lymphedema Management, Education re Skin Care and Precautions, Education re Self Massage Techniques, Education re Correct Donning Tech,Care&Wearing Sched Comp Garments and Home Program Re-Evaluation Ending Re-evaluation ending: Please do not hesitate to contact me at [phone] by phone or if you have questions or concerns regarding this new plan of care! Sincerely, Betsy Bernal
--- NOTE | 2024-08-16 13:23 | HP.OTREVAL ---
Re-Evaluation Intro: Toshia Green MD, It has been my pleasure to treat ONEAL ZABALA over the last 4 visits for lymphedema. Please see the progress note below for an update on the occupational therapy plan of care! Subjective Subjective: pt arrives 9 min early started session early. update of information this date pt to potentially get pump. Objective Objective/Function: wears stockings BLEs to knee level 20-30 compression value doing LE exercise as well as lymph massage fluctuating swelling at this time mid foot R 24 cm L 24 cm ankle R 31 cm L 29 cm lower calf R 35 cm L 37 cm largest calf R 51 cm L 51 cm below knee R 49 cm L 49 cm pt initial eval 04/11/24 where conservative treatment measures started with lymph massage, LE exercises as well as compression garment wear. pt seen an additional 3 visits for treatment with last session being seen 07/14/24. At this time pt continues to demonstrate fluctuating BLE swelling no consistent reduction at this time despite conservative treatment for past 2 months. tactile medical one time trial of basic pump causing pt to have knee pain at this time. Plan Plan Visits in this POC: 3-4 visits Plan: compression garment lymph massage LE exercise Goals Goals Goal: Patient will demonstrate a 20% reduction in edema by discharge: Yes Goal: Patient will demonstrate adequate knowledge of self-massage by the end of the second week.: Yes Goal: Patient will demonstrate adequate knowledge of skin care and precautions by the end of the first week.: Yes Goal: Patient will demonstrate adequate knowledge of therapeutic exercises by discharge.: Yes Goal: Patient will select an appropriate compression garment and demonstrate adequate knowledge of correct donning technique, care and wearing schedule by discharge.: Yes Goal: Patient will voice understanding of need to replace compression garment every four to six months by discharge.: Yes Patient Goals: Learn how to Manage Lymphedema and Learn how to Apply Compression Stockings Anticipated Interventions Anticipated Interventions Anticipated Interventions: Education re Life-long lymphedema Management, Education re Skin Care and Precautions, Education re Self Massage Techniques, Education re Correct Donning Tech,Care&Wearing Sched Comp Garments and Home Program Re-Evaluation Ending Re-evaluation ending: Please do not hesitate to contact me at [phone] by phone or if you have questions or concerns regarding this new plan of care! Sincerely, Betsy Bernal
== END 2024-07-14 19:00 | disposition home or self-care (01) ==
LOC: OT 16:00
PROVIDERS: PCP Nurse Practitioner Family; Referring Provider Surgery Vascular Surgery; Visit Provider Surgery Vascular Surgery
DX: I89.0 Lymphedema, not elsewhere classified (principal)
CPT/HCPCS: 97166; 97530

== ENCOUNTER → 2024-12-07 | Outpatient (CLI) | payer OTHER, SELFPAY ==
[2024-12-07 07:18] LABS: Mucous, Urine 0 SEEN /hpf (<or=2+)
[2024-12-07 07:35] LABS: Absolute Lymphocyte Count 1.68 X10^3/uL (0.83-4.51); Absolute Neutrophil Count 3.6 X10^3/uL (2.0-7.7); Basophil# 0.01 X10^3/uL; Basophil% 0.2 % (0-1); Hematocrit 40.3 % (37-47); Hemoglobin 13.6 g/dL (12.0-15.0); Lymphocyte # 1.68 X10^3/ul (0.83-4.51); Lymphocyte % 28.3 % (19-41); Mean Corp Hgb Conc 33.7 g/dL (32-36); Mean Corpuscular Hgb 30.8 pg (27.0-32.0); Mean Corpuscular Volume 91.4 fL (81-99); Monocyte# 0.62 X10^3/uL; Monocyte% 10.4 % (0-10); NRBC Flagged by Analyzer 0 % (0-5); Neutrophil # 3.61 X10^3/uL (2.7-7.7); Neutrophil % 60.8 % (47-70); Platelet Count 233 K/mm3 (150-450); RBC Distribution Width CV 12.7 % (11.6-14.6); RBC Distribution Width SD 42.5 fl (35.1-43.9); Red Blood Count 4.41 M/mm3 (4.2-5.4); White Blood Count 5.9 K/mm3 (4.4-11.0)
[2024-12-07 07:54] LABS: Hemoglobin A1c 5.8 % (<=5.6)
[2024-12-07 08:00] LABS: Color, Urine Yellow (Yellow); Glucose, Dipstick Normal (Normal); Ketone-Dipstick Negative (Negative); Leukocyte Esterase-Dipstick 100 /ul (Negative); Nitrite-Dipstick Negative (Negative); Occult Blood-Urine Negative /ul (Negative); Protein-Dipstick 15 mg/dl (Negative); Urine Bilirubin Dipstick Negative (Negative); Urine Clarity Sl. Cloudy (Clear); Urine Urobilinogen Normal (Normal)
[2024-12-07 08:11] LABS: ALB/GLOB Ratio 1.5 RATIO (0.9-2.4); AST(SGOT) 18 U/L (<=31); Alanine Aminotransfer ALT/SGPT 18 U/L (<=34); Albumin, Serum 4.3 g/dL (3.5-5.0); Alkaline Phosphatase 98 U/L (35-104); Anion Gap 9 (5-15); BUN 14 mg/dL (4-19); BUN/Creat Ratio 18.5 RATIO (10-20); CRP 3.02 mg/L (0.0-3.0); Calcium,Total 9.3 mg/dL (7.6-11.0); Carbon Dioxide 26.8 mmol/L (21.0-32.0); Chloride 103 mmol/L (98-108); Cholesterol 194 mg/dL (<=200); Creatinine, Serum 0.77 mg/dL (0.70-1.20); EST Glomerular Filtration Rate 92 (>60); Globulin 2.8 g/dL (2.2-4.2); Glucose 105 mg/dL (70-99); High Density Lipoprotein 70 mg/dL; Low Density Lipoprotein Calc. 113 mg/dL; Potassium 4.1 mmol/L (3.3-5.1); Protein, Total 7.2 g/dL (5.9-8.4); Sodium Level 139 mmol/L (133-145); Total Bilirubin 0.54 mg/dL (0.00-1.30); Triglycerides 58 mg/dL; Very Low Density Lipoprotein 12 mg/dL (5-40); Vitamin D,25 Hydroxy 46.3 ng/mL (30-100); cholesterol:hdl ratio screen 2.79
[2024-12-07 09:11] LABS: Microalbumin,Random Urine < 12.0 mg/L (NO RANGE EST.); Microalbumin:Creatinine Ratio UNABLE TO CALCULATE mg/g CRE
[2024-12-07 10:51] LABS: Bacteria 1+ /hpf (None Seen); Red Blood Cells-Urine 0 SEEN /hpf (0-5); Squamous Epithelial Cells - UA 5-10 SEEN /hpf (5-10)
[2024-12-07 10:52] LABS: White Blood Cells 0-5 SEEN /hpf (0-5)
== END | disposition home or self-care (01) ==
LOC: LAB 07:14
PROVIDERS: PCP Nurse Practitioner Family; Referring Provider Nurse Practitioner Family; Visit Provider Nurse Practitioner Family
DX: R73.03 Prediabetes (principal); E78.5 Hyperlipidemia, unspecified; E55.9 Vitamin D deficiency, unspecified; R79.82 Elevated C-reactive protein (CRP)
CPT/HCPCS: 36415; 80053; 80061; 81001; 82043; 82306; 82570; 83036; 85025; 86140

== ENCOUNTER → 2025-04-05 | Outpatient (CLI) | payer OTHER, SELFPAY ==
--- NOTE | 2025-04-05 12:13 | BI_ITS ---
EXAM: SCRN MAMM (CAD)W/STEFANIA BILAT DATE: 04/05/2025 CLINICAL HISTORY: F, Age 54 y/o , SCREENING TECHNIQUE: SCRN MAMM (CAD)W/STEFANIA BILAT COMPARISON: Prior exam(s) dated 04/04/2024, 02/26/2023, 10/16/2021. FINDINGS: TISSUE DENSITY: There are scattered areas of fibroglandular density. Bilateral Breast Mammographic Findings: No significant masses, calcifications or other abnormalities are identified. BI/SCRN MAMM (CAD)W/STEFANIA BILAT IMPRESSION: There is no mammographic evidence of malignancy. OVERALL FINAL ASSESSMENT BI-RADS 1: NEGATIVE. RECOMMENDATION: Routine annual follow-up in 1 Year A letter with findings and recommendations will be mailed to the patient. Reading Location: [id number]
== END | disposition home or self-care (01) ==
LOC: OPBI 12:11
PROVIDERS: PCP Nurse Practitioner Family; Referring Provider Nurse Practitioner Family; Visit Provider Nurse Practitioner Family
DX: Z12.31 Encounter for screening mammogram for malignant neoplasm of breast (principal)
CPT/HCPCS: 77063; 77067

== ENCOUNTER → 2025-06-14 | Outpatient (CLI) | payer OTHER, SELFPAY ==
[2025-06-14 07:39] LABS: Ferritin 216 ng/mL (22-378); Iron 62 ug/dL (50-170); Iron Binding Capacity,Total 323 ug/dL (250-450); Iron Binding Capacity,Unsat 261 ug/dL (228-428); Vitamin D,25 Hydroxy 42.0 ng/mL (30-100)
== END | disposition home or self-care (01) ==
LOC: LAB 06:02
PROVIDERS: PCP Nurse Practitioner Family; Referring Provider Nurse Practitioner Family; Visit Provider Nurse Practitioner Family
DX: E55.9 Vitamin D deficiency, unspecified (principal); R53.83 Other fatigue
CPT/HCPCS: 36415; 82306; 82728; 83540; 83550

== ENCOUNTER 2025-09-04 07:37 | Day surgery (SDC) | payer OTHER, SELFPAY ==
--- NOTE | 2025-08-30 21:41 | PAT.ANESEVAL ---
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 When Was Last Pacemaker Check QUESTION #4 FULL TEXT: You/Your Family Experience fever (hyperthermia) with Anesthesia Last Oral Intake Last Oral intake: Last Oral Intake NPO since Meds taken in AM with sips of water? Meds patient instructed to take am of surgery PONV PONV - board worker: PONV - board worker Female Yes 08/30/25 15:51 HX of Motion Sickness No 08/30/25 15:51 HX of N/V After Surgery No 08/30/25 15:51 Non-Smoker Yes 08/30/25 15:51 Duration of Surgery greater No 08/30/25 15:51 than 60 minutes Number of Risk Factors 2 08/30/25 15:51 PONV Score Moderate Risk 08/30/25 15:51 Height & Weight Height & Weight: Anesthesia: Height & Weight Height 5 ft 4 in 08/10/23 14:12 Respiratory Assessment Respiratory Assessment - board worker: Respiratory Tract Infection Hx - board worker Hx Respiratory Tract Infection No 08/30/25 15:51 STOP Sleep Apnea STOP Sleep Apnea - board worker: STOP Sleep Apnea - board worker Hx Hypertension No 08/30/25 15:51 Hx Sleep Apnea No 08/30/25 15:51 CPAP BIPAP Do you snore loudly (louder No 08/30/25 15:51 than talking or can be heard Do you often feel tired/ No 08/30/25 15:51 fatigued/ sleepy during daytime? Has anyone observed you stop No 08/30/25 15:51 breathing during sleep? STOP Results Negative 08/30/25 15:51 QUESTION #5 FULL TEXT : Do you snore loudly (louder than talking or can be heard through closed doors)? 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 Specify any problems Hx of Preganancy in last 3 No 08/30/25 15:51 Months Nurse Filling Out Transfusion VCHRISTIN 08/30/25 15:51 & Questions: Date: 08/30/25 08/30/25 15:51 Time: 15:52 08/30/25 15:51 Patient unable to answer at this time (ie. confused, unrespo /Reproduction History /Reproductive History - board worker: /Reproductive Hx- board worker Hx Now No 08/30/25 15:51 Gestational Age (in weeks): EDC: Hx Hx Para Hx Section SAB No 08/30/25 15:51 Does the father of the baby or his family experience fever w Father of the baby Malignant Hy[facility] Medical History (Updated 08/30/25 @ 15:51 by Joyce Badillo) Wears glasses Anemia Back pain Non-smoker CPAP (continuous positive airway pressure) dependence Sleep apnea History of echocardiogram Cardiology follow-up encounter GERD (gastroesophageal reflux disease) Scoliosis Vitamin D deficiency Hyperlipidemia Arthritis Heartburn History of pain when walking History of edema Hx of supraventricular tachycardia Asthma Home Medications ?Medication ?Instructions ?Recorded ?Last Taken ?Type multivitamin with minerals-folic 2 tab PO DAILY 07/24/21 Unknown History acid 200 mcg chewable tablet (One-A-Day Vitacraves Immunity) albuterol sulfate 90 mcg/actuation 1 inh inhalation Q6H PRN SOB 08/27/22 Unknown History aerosol inhaler benralizumab 30 mg/mL subcutaneous 30 mg subcut .D2IVULL 08/27/22 08/27/22 History auto-injector (Fasenra Pen) biotin 1,000 mcg chewable tablet 1,000 mcg PO DAILY 08/27/22 Unknown History fluticasone propionate 50 1 spray intranasal DAILY 08/27/22 Unknown History mcg/actuation nasal spray,suspension (Flonase Allergy Relief) loratadine 10 mg tablet (Allergy 10 mg PO DAILY 07/13/23 Unknown History Relief (loratadine)) fluticasone furoate 200 1 inh inhalation DAILY 08/10/23 Unknown History mcg-vilanterol 25 mcg/dose inhalation powder (Breo Ellipta) montelukast 10 mg tablet 10 mg PO DAILY 08/10/23 Unknown History ferrous sulfate 325 mg (65 mg 325 mg PO .3X WEEKLY 08/01/25 08/30/25 History iron) tablet sodium sul 1.479 gram-potas ch See Rx Instructions PO PER PKG DIR 08/01/25 Unknown Rx 0.188 gram-magnes sul 0.225 gram #24 tabs tablet (Sutab) prasterone (DHEA) 50 mg capsule 50 mg PO DAILY 08/30/25 Unknown History (DHEA) Allergy/AdvReac Type Severity Reaction Status Date / Time peanut Allergy Severe swelling, Verified 08/30/25 15:39 vomiting potato Allergy Severe SWELLING, Verified 08/30/25 15:39 VOMITING wheat Allergy Severe swelling, Verified 08/30/25 15:39 vomiting animal dander Allergy Intermediate BREATHING Verified 08/30/25 15:39 AND CONGESTION grass pollen Allergy Intermediate breathing Verified 08/30/25 15:39 and congestion mold Allergy Intermediate breathing Verified 08/30/25 15:39 and congestion ragweed pollen Allergy Intermediate breathing Verified 08/30/25 15:39 and congestion tree and shrub pollen Allergy Intermediate breathing Verified 08/30/25 15:39 and congestion Penicillins Allergy Unknown unknown Verified 08/30/25 15:39 Family History Father Hypertension Sister Hypertension Brother Hypertension Mother Diabetes CAD (coronary artery disease) Myocardial infarction Surgical History (Updated 08/30/25 @ 15:51 by Joyce Badillo) History of carpal tunnel surgery of right wrist History of ankle surgery History of ankle surgery Social History household members: spouse and children Smoking Status: Never smoker alcohol intake: never substance use type: does not use what type of physical activity do you participate in: walking do you feel safe at home: Yes Audit: Pertinent Findings Pertinent Findings EKG Perinent findings: 08/10/2023. Sinus rhythm. Poor R wave progression?nonspecific?consider old anterior infarct. Consult pertinent findings: 08/10/2023. Dr. Panchal. 1. Hyperlipidemia?patient's coronary risk factors score is about 1% over the next 10 years. Continue aggressive risk factor modification. Recommendation Anesthesia Recommendation Anesthesia recommendation: OPTIMIZED for anesthesia
[2025-09-04] VITALS (8 sets, daily range): BP systolic 105–121; BP diastolic 64–73; PULSE 73–80; RESP 16–18; TEMP 36.2–36.6; O2SAT 97–100; BMI 42.7
--- NOTE | 2025-09-04 08:14 | PCM.HP.STD ---
HPI - General General Date of Admission: 09/04/25 Date of Service: 09/04/25 Chief Complaint: Screening colonoscopy HPI Narrative ONEAL ZABALA, is a 55 F who presents [for screening colonoscopy. She has not had a colonoscopy in the past. She does not have abdominal pain, cramping, chest pain or shortness of breath. Overall she is in very good health.] [facility] Medical History Wears glasses Anemia Back pain Non-smoker CPAP (continuous positive airway pressure) dependence Sleep apnea History of echocardiogram Cardiology follow-up encounter GERD (gastroesophageal reflux disease) Scoliosis Vitamin D deficiency Hyperlipidemia Arthritis Heartburn History of pain when walking History of edema Hx of supraventricular tachycardia Asthma Home Medications ?Medication ?Instructions ?Recorded ?Last Taken ?Type multivitamin with minerals-folic 2 tab PO DAILY 07/24/21 08/30/25 History acid 200 mcg chewable tablet (One-A-Day Vitacraves Immunity) albuterol sulfate 90 mcg/actuation 1 inh inhalation Q6H PRN SOB 08/27/22 Unknown History aerosol inhaler benralizumab 30 mg/mL subcutaneous 30 mg subcut .[id number] 08/27/22 08/01/25 History auto-injector (Fasenra Pen) biotin 1,000 mcg chewable tablet 1,000 mcg PO DAILY 08/27/22 09/02/25 History fluticasone propionate 50 1 spray intranasal DAILY 08/27/22 09/03/25 History mcg/actuation nasal spray,suspension (Flonase Allergy Relief) loratadine 10 mg tablet (Allergy 10 mg PO DAILY 07/13/23 09/03/25 History Relief (loratadine)) fluticasone furoate 200 1 inh inhalation DAILY 08/10/23 09/04/25 History mcg-vilanterol 25 mcg/dose inhalation powder (Breo Ellipta) montelukast 10 mg tablet 10 mg PO DAILY 08/10/23 09/03/25 History ferrous sulfate 325 mg (65 mg 325 mg PO .3X WEEKLY 08/01/25 08/28/25 History iron) tablet sodium sul 1.479 gram-potas ch See Rx Instructions PO PER PKG DIR 08/01/25 09/04/25 Rx 0.188 gram-magnes sul 0.225 gram #24 tabs tablet (Sutab) prasterone (DHEA) 50 mg capsule 50 mg PO DAILY 08/30/25 09/01/25 History (DHEA) Allergy/AdvReac Type Severity Reaction Status Date / Time peanut Allergy Severe swelling, Verified 09/04/25 08:01 vomiting potato Allergy Severe SWELLING, Verified 09/04/25 08:01 VOMITING wheat Allergy Severe swelling, Verified 09/04/25 08:01 vomiting animal dander Allergy Intermediate BREATHING Verified 09/04/25 08:01 AND CONGESTION grass pollen Allergy Intermediate breathing Verified 09/04/25 08:01 and congestion mold Allergy Intermediate breathing Verified 09/04/25 08:01 and congestion ragweed pollen Allergy Intermediate breathing Verified 09/04/25 08:01 and congestion tree and shrub pollen Allergy Intermediate breathing Verified 09/04/25 08:01 and congestion Penicillins Allergy Unknown unknown Verified 09/04/25 08:01 Family History Father Hypertension Sister Hypertension Brother Hypertension Mother Diabetes CAD (coronary artery disease) Myocardial infarction Surgical History History of carpal tunnel surgery of right wrist History of ankle surgery History of ankle surgery Social History household members: spouse and children Smoking Status: Never smoker alcohol intake: never substance use type: does not use what type of physical activity do you participate in: walking do you feel safe at home: Yes ROS Constitutional Constitutional: Denies fatigue, fever(s), poor appetite, weight gain or weight loss Gastrointestinal Gastrointestinal: Denies belching, bloating, change in bowel habits, change in stool character, chewing difficulty, coffee ground emesis, constipation, cramping, diarrhea, dyspepsia, dysphagia, early satiety, excessive flatus, fecal incontinence, heartburn, hematemesis, hematochezia, hemorrhoids, loose stools, melena, nausea, odynophagia, rectal bleeding, tenesmus, vomiting or weight changes Patient's Goals Of Care . What would you like to achieve or improve as a result of your hospital stay?: none Vital Signs Vital Signs Vital Signs: 09/04/25 08:04 09/04/25 08:04 09/04/25 08:04 Temperature 97.5 F L Temperature Source Temporal Pulse Rate 76 Respiratory Rate 18 Respiratory Pattern Normal Blood Pressure 121/72 H Blood Pressure Mean 88 Blood Pressure Source Monitor Blood Pressure Position Semi-Fowlers Blood Pressure Location Right Arm Baseline BP 121/72 Pulse Ox 100 Oxygen Delivery Method Room Air Weight Weight: 249 lb 1.957 oz Body Mass Index (BMI) 42.7 Physical Exam Const alert, oriented x3, no apparent distress and healthy appearing General Appearance: cooperative GI normal to inspection, nondistended, normoactive bowel sounds, soft to palpation, non-tender and non-distended Percussion: normal to percussion Rectal Exam: deferred Assessment & Plan Assessment/Plan (1) Encounter for screening colonoscopy: PLAN: She was explained alternatives, risk and benefits include normocytic bleeding, fracture, sepsis, perforation, need for return to . She open ASA of 3.
[2025-09-04] MEDS: Lactated Ringers 1,000 ML 15 ML IV (08:17)
--- NOTE | 2025-09-04 08:34 | PCM.PRE.AN2 ---
ASA Classification* ASA Classification ASA Classification: 3 (BMI) Assessment & Plan Anesthesia* Anesthesia Assessment Anesthesia Assessment: Discussed sedation and/or anesthesia options, risks, benefits, and alternatives with patient/parents/legal guardian/POA. Questions invited. The patient/parents/legal guardian/POA seems to understand and agrees to proceed with anesthesia plan. Reviewed the physical assessment, medical history, allergy history and patient home medications list prior to surgery/procedure/anesthetic and documented any changes. Performed airway and anesthesia risk assessments. Anesthesia Type Anesthesia Type: MAC History Source History Obtained from:: Patient and Chart Anesthesia Focused Assessment* Temperature: 97.9 F Pulse Rate: 80 Blood Pressure: 105/64 Respiratory Rate: 16 Pulse Ox: 97 Airway Assessment Mouth opens: >3 cm Mallampati Score: II Teeth Condition: Intact Neck Range of motion (ROM): Full ROM Labs Anesthesia Preop lab: CBC WBC, (4.4-11.0) 5.9 K/mm3 12/07/24, 07:17 RBC, (4.2-5.4) 4.41 M/mm3 12/07/24, 07:17 Hgb, (12.0-15.0) 13.6 g/dL 12/07/24, 07:17 Hct, (37-47) 40.3 % 12/07/24, 07:17 Plt Count, (150-450) 233 K/mm3 12/07/24, 07:17 CHEMISTRY Potassium, (3.3-5.1) 4.1 mmol/L 12/07/24, 07:17 Sodium, (133-145) 139 mmol/L 12/07/24, 07:17 BUN, (4-19) 14 mg/dL 12/07/24, 07:17 Creatinine, (0.70-1.20) 0.77 mg/dL 12/07/24, 07:17 Glucose, (70-99) 105 mg/dL H 12/07/24, 07:17 TSH, (0.358-3.740) 2.300 uIU/mL 06/02/24, 07:12 COAG PT, (11.7-14.9) 13.7 SECONDS 06/02/24, 07:12 Urine Test Negative Negative 08/29/22, 06:20 Pre-Assessment Diagnosis/Proposed Procedure Planned Operative Procedure(s): COLONOSCOPY Anesthesia History Anesthesia History - in service coordinator: Anesthesia History - in service coordinator Hx Hospitalization No 08/30/25 15:51 Any Problems With Anesthesia No 08/30/25 15:51 Cholinesterase deficiency No 08/30/25 15:51 You/Your Family Experience No 08/30/25 15:51 fever (hyperthermia) with Relationship Recent Exposure to Contagious No 09/04/25 08:04 Disease Does patient have nerve No 08/30/25 15:51 stimulator Patient instructed to have device shut off --Does patient have Pacemaker No 09/04/25 08:04 or ICD? When Was Last Pacemaker Check QUESTION #4 FULL TEXT: You/Your Family Experience fever (hyperthermia) with Anesthesia Last Oral Intake Last Oral intake: Last Oral Intake NPO since 05:30 09/04/25 08:04 Meds taken in AM with sips of No 09/04/25 08:04 water? Meds patient instructed to take am of surgery PONV PONV - in service coordinator: PONV - in service coordinator Female Yes 08/30/25 15:51 HX of Motion Sickness No 08/30/25 15:51 HX of N/V After Surgery No 08/30/25 15:51 Non-Smoker Yes 08/30/25 15:51 Duration of Surgery greater No 08/30/25 15:51 than 60 minutes Number of Risk Factors 2 08/30/25 15:51 PONV Score Moderate Risk 08/30/25 15:51 Height & Weight Height & Weight: Anesthesia: Height & Weight Height 5 ft 4 in 09/04/25 08:04 Weight: 113 kg 09/04/25 08:04 Body Mass Index (BMI) 42.7 09/04/25 08:04 Respiratory Assessment Respiratory Assessment - in service coordinator: Respiratory Tract Infection Hx - in service coordinator Hx Respiratory Tract Infection No 08/30/25 15:51 STOP Sleep Apnea STOP Sleep Apnea - in service coordinator: STOP Sleep Apnea - in service coordinator Hx Hypertension No 08/30/25 15:51 Hx Sleep Apnea No 08/30/25 15:51 CPAP BIPAP Do you snore loudly (louder No 08/30/25 15:51 than talking or can be heard Do you often feel tired/ No 08/30/25 15:51 fatigued/ sleepy during daytime? Has anyone observed you stop No 08/30/25 15:51 breathing during sleep? STOP Results Negative 09/04/25 09:30 QUESTION #5 FULL TEXT : Do you snore loudly (louder than talking or can be heard through closed doors)? 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 Specify any problems Hx of Preganancy in last 3 No 08/30/25 15:51 Months Nurse Filling Out Transfusion VCHRISTIN 08/30/25 15:51 & Questions: Date: 08/30/25 08/30/25 15:51 Time: 15:52 08/30/25 15:51 Patient unable to answer at this time (ie. confused, unrespo /Reproduction History /Reproductive History - in service coordinator: /Reproductive Hx- in service coordinator Hx Now No 08/30/25 15:51 Gestational Age (in weeks): EDC: Hx Hx Para Hx Section SAB No 08/30/25 15:51 Does the father of the baby or his family experience fever w Father of the baby Malignant Hypertension history comment Active Medications Active Medications: Current Medications Generic Name Dose Route Start Last Admin Trade Name Freq PRN Reason Stop Dose Admin Lactated Ringer's 1,000 mls @ 15 mls/hr 09/04/25 08:00 09/04/25 08:17 IV 15 mls/hr .Q48H LAW Administration PFSH Medical History Wears glasses Anemia Back pain Non-smoker CPAP (continuous positive airway pressure) dependence Sleep apnea History of echocardiogram Cardiology follow-up encounter GERD (gastroesophageal reflux disease) Scoliosis Vitamin D deficiency Hyperlipidemia Arthritis Heartburn History of pain when walking History of edema Hx of supraventricular tachycardia Asthma Home Medications ?Medication ?Instructions ?Recorded ?Last Taken ?Type multivitamin with minerals-folic 2 tab PO DAILY 07/24/21 08/30/25 History acid 200 mcg chewable tablet (One-A-Day Vitacraves Immunity) albuterol sulfate 90 mcg/actuation 1 inh inhalation Q6H PRN SOB 08/27/22 Unknown History aerosol inhaler benralizumab 30 mg/mL subcutaneous 30 mg subcut .[id number] 08/27/22 08/01/25 History auto-injector (Fasenra Pen) biotin 1,000 mcg chewable tablet 1,000 mcg PO DAILY 08/27/22 09/02/25 History fluticasone propionate 50 1 spray intranasal DAILY 08/27/22 09/03/25 History mcg/actuation nasal spray,suspension (Flonase Allergy Relief) loratadine 10 mg tablet (Allergy 10 mg PO DAILY 07/13/23 09/03/25 History Relief (loratadine)) fluticasone furoate 200 1 inh inhalation DAILY 08/10/23 09/04/25 History mcg-vilanterol 25 mcg/dose inhalation powder (Breo Ellipta) montelukast 10 mg tablet 10 mg PO DAILY 08/10/23 09/03/25 History ferrous sulfate 325 mg (65 mg 325 mg PO .3X WEEKLY 08/01/25 08/28/25 History iron) tablet sodium sul 1.479 gram-potas ch See Rx Instructions PO PER PKG DIR 08/01/25 09/04/25 Rx 0.188 gram-magnes sul 0.225 gram #24 tabs tablet (Sutab) prasterone (DHEA) 50 mg capsule 50 mg PO DAILY 08/30/25 09/01/25 History (DHEA) Allergy/AdvReac Type Severity Reaction Status Date / Time peanut Allergy Severe swelling, Verified 09/04/25 08:01 vomiting potato Allergy Severe SWELLING, Verified 09/04/25 08:01 VOMITING wheat Allergy Severe swelling, Verified 09/04/25 08:01 vomiting animal dander Allergy Intermediate BREATHING Verified 09/04/25 08:01 AND CONGESTION grass pollen Allergy Intermediate breathing Verified 09/04/25 08:01 and congestion mold Allergy Intermediate breathing Verified 09/04/25 08:01 and congestion ragweed pollen Allergy Intermediate breathing Verified 09/04/25 08:01 and congestion tree and shrub pollen Allergy Intermediate breathing Verified 09/04/25 08:01 and congestion Penicillins Allergy Unknown unknown Verified 09/04/25 08:01 Family History Father Hypertension Sister Hypertension Brother Hypertension Mother Diabetes CAD (coronary artery disease) Myocardial infarction Surgical History History of carpal tunnel surgery of right wrist History of ankle surgery History of ankle surgery Social History household members: spouse and children Smoking Status: Never smoker alcohol intake: never substance use type: does not use what type of physical activity do you participate in: walking do you feel safe at home: Yes Review of Systems (Anesthesia) ROS Narrative System reviewed and no additional complaints, except as documented.
--- NOTE | 2025-09-04 09:35 | PCM.POST.ANE ---
Anesthesia: Postop Eval I Current Vital Signs Temperature: 97.9 F Pulse Rate: 74 Blood Pressure: 105/64 Respiratory Rate: 16 Pulse Ox: 97 Oxygen Delivery Method: Room Air Assessment Airway patent: Yes Spontaneous unlabored respirations: Yes Mental status: Awake and Calm nausea: No Vomiting: No Anesthesia Complication: No Fluid Hydration Crystalloid volume administer (ml): 500 Total IV fluid infused: 500 Progress Note Anesthesia document: Postop Eval 1 completed: Yes
--- NOTE | 2025-09-04 09:37 | OP.COLON_ITS ---
Patient Name: Carol Ordoñez Procedure Date: 09/04/2025 9:00 AM Date of : 1970 Age: 55 Procedure: Colonoscopy Indications: Screening for colorectal malignant neoplasm Providers: Connor Denney DO Medicines: Monitored Anesthesia Care Patient Profile: This is a 55 year old female. Refer to note in patient chart for documentation of history and physical. Last Colonoscopy: none. The patient's first colonoscopy is today. Complications: No immediate complications. Procedure: Pre-Anesthesia Assessment: - Prior to the procedure, a History and Physical was performed, and patient medications and allergies were reviewed. The patient is competent. The risks and benefits of the procedure and the sedation options and risks were discussed with the patient. All questions were answered and informed consent was obtained. Patient identification and proposed procedure were verified by the physician in the pre-procedure area. Mental Status Examination: alert and oriented. Airway Examination: normal oropharyngeal airway and neck mobility. Respiratory Examination: clear to auscultation. CV Examination: normal. Prophylactic Antibiotics: The patient does not require prophylactic antibiotics. Prior Anticoagulants: The patient has taken no anticoagulant or antiplatelet agents except for NSAID medication. ASA Grade Assessment: II - A patient with mild systemic disease. After reviewing the risks and benefits, the patient was deemed in satisfactory condition to undergo the procedure. The anesthesia plan was to use monitored anesthesia care (MAC). Immediately prior to administration of medications, the patient was re-assessed for adequacy to receive sedatives. The heart rate, respiratory rate, oxygen saturations, blood pressure, adequacy of pulmonary ventilation, and response to care were monitored throughout the procedure. The physical status of the patient was re-assessed after the procedure. After I obtained informed consent, the scope was passed under direct vision. Throughout the procedure, the patient's blood pressure, pulse, and oxygen saturations were monitored continuously. The pediatric colonoscope was introduced through the anus and advanced to the cecum, identified by appendiceal orifice and ileocecal valve. The colonoscopy was performed without difficulty. The patient tolerated the procedure well. The quality of the bowel preparation was adequate. The terminal ileum, ileocecal valve, appendiceal orifice, and rectum and the ileocecal valve, appendiceal orifice, and rectum were photographed. Scope In: 9:13:06 AM Scope Withdrawal Time 0 hours 8 minutes 28 seconds Scope Out: 9:26:14 AM Total Procedure Duration Time 0 hours 13 minutes 8 seconds Findings: The perianal and digital rectal examinations were normal. The colon (entire examined portion) appeared normal. A few small-mouthed diverticula were found in the recto-sigmoid colon and sigmoid colon. There was no evidence of diverticular bleeding. The exam was otherwise without abnormality on direct and retroflexion views. Impression: - The entire examined colon is normal. - Mild diverticulosis in the recto-sigmoid colon and in the sigmoid colon. There was no evidence of diverticular bleeding. - The examination was otherwise normal on direct and retroflexion views. - No specimens collected. Recommendation: - Discharge patient to home. - Resume previous diet. - Continue present medications. - Repeat colonoscopy in 10 years for screening purposes. Procedure Code(s): --- Professional --- G0121, Colorectal cancer screening; colonoscopy on individual not meeting criteria for high risk CPT copyright 2021 [employer]. All rights reserved. The codes documented in this report are preliminary and upon cap sizer review may be revised to meet current compliance requirements. Connor Denney DO 09/04/2025 9:37:18 AM This report has been signed electronically. Number of Addenda: 0 Note Initiated On: 09/04/2025 9:00 AM
--- NOTE | 2025-09-04 09:37 | OP.PROVAT_ITS ---
09/04/2025 Miller Mosley Re : Colonoscopy procedure for Carol Ordoñez Dear [place] This procedure was performed on Thursday, September 04, 2025. My impressions and recommendations are as follows: Impressions : - The entire examined colon is normal. - Mild diverticulosis in the recto-sigmoid colon and in the sigmoid colon. There was no evidence of diverticular bleeding. - The examination was otherwise normal on direct and retroflexion views. - No specimens collected. Recommendations : - Discharge patient to home. - Resume previous diet. - Continue present medications. - Repeat colonoscopy in 10 years for screening purposes. My findings are described in the full procedure note, which is enclosed. If I can be of further assistance, please feel free to contact me at . Sincerely, Connor Friend, 09/04/2025 9:37:18 AM This report has been signed electronically.
--- NOTE | 2025-09-04 10:10 | PCM.POSTANE2 ---
Anesthesia Postop Eval I Sum Postop Eval Completion status Anesthesia document: Postop Eval 1 completed: Yes Anesthesia Postop Eval I Summary Anesthesia Postop Eval I Summary: Anesthesia Postop Eval I: Assessment Summary Airway patent Yes 09/04/25 09:36 [email or web address] Spontaneous unlabored Yes 09/04/25 09:36 [email or web address] respirations Mental status Awake,Calm 09/04/25 09:36 [email or web address] nausea No 09/04/25 09:36 [email or web address] Vomiting No 09/04/25 09:36 [email or web address] Anesthesia Postop Eval I: Fluid Summary Crystalloid volume administer 500 09/04/25 09:36 [email or web address] (ml) Colloids volume administered ( ml) Blood Product volume administered (ml) Total IV fluid infused 500 09/04/25 09:36 [email or web address] Anesthesia Postop Eval I: Summary Notes Anesthesia Complication No 09/04/25 09:36 [email or web address] Anesthesia Complication Comment: Post-operative progress note Anesthesia: Postop Eval II Evaluation Mental status: Awake Pain Level: 0 nausea: No Vomiting: No
== END 2025-09-04 10:28 | disposition home or self-care (01) ==
LOC: EN 07:39 → AC 07:40
PROVIDERS: PCP Nurse Practitioner Family; Visit Provider Internal Medicine Gastroenterology
PROC: 0DJD8ZZ Inspection of Lower Intestinal Tract, Via Natural or Artificial Opening Endoscopic (ICD-10-PCS; CPT 45378; principal; 2025-09-04 08:40)
DX: Z12.11 Encounter for screening for malignant neoplasm of colon (principal); K57.30 Diverticulosis of large intestine without perforation or abscess without bleeding; E78.5 Hyperlipidemia, unspecified; Z79.51 Long term (current) use of inhaled steroids; G47.30 Sleep apnea, unspecified; Z99.89 Dependence on other enabling machines and devices; J45.909 Unspecified asthma, uncomplicated
CPT/HCPCS: 45378; J2405

== ENCOUNTER → 2025-09-13 | Outpatient (CLI) | payer OTHER, SELFPAY ==
--- OUTSIDE RECORDS SUMMARY | 2025-09-13 06:17 | XMS RPT_ITS | CCD ---
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 Name Role Phone Jairon Marshall Unavailable Ursula Gary Unavailable Hilario Rivera Unavailable [facility], [facility] Unavailable Jignesh Gibson Unavailable Ignacio Brooke Unavailable Melissa Cramer Unavailable Unavailable Cande Bach Unavailable Unavailable CELESTE Perales Unavailable Unavailable Unavailable Unavailable Indra Marina Unavailable Unavailable Chel Andrews Unavailable Unavailable Tran Espinal Unavailable Unavailable Indra Marina Unavailable Unavailable CELESTE Perales Unavailable Unavailable Unavailable Unavailable Indra Johnson Unavailable Unavailable Ursula Gary CNP Unavailable Dr. Hilario Rivera Unavailable [phone] [facility], [facility] Unavailable Jignesh Gibson MD Unavailable [phone] Ignacio Brooke MD Unavailable Beverly Biswas MA Unavailable Unavailable Tran Espinal LPN Unavailable Unavailable Indra Johnson LPN Unavailable Unavailable CELESTE Perales LPN Unavailable Unavailable Mikala MARVIN Cande Unavailable Unavailable Unavailable Unavailable Ursula Gary Unavailable Zahraa Ivey CNP Unavailable Zahraa Ivey CNP Unavailable Jignesh Gibson MD Primary Care Provider [phone] Zahraa Ivey CNP Attending Unavailable Ursula Gary Referring Unavailable Uche MOIRA, Zahraa Consulting Unavailable Uche, METAL TECHNICIAN-C Zahraa Primary Care Provider Uche, METAL TECHNICIAN-C Zahraa Referring Provider Dr. Gen Prajapati Attending Provider Dr. Anthony Panchal Attending Provider Uche, METAL TECHNICIAN-C Zahraa Primary Care Provider DONNIE Martinez Attending Provider Unavail able Uche, METAL TECHNICIAN-C Zahraa Referring Provider Dr. Anthony Panchal Attending Provider Arthur BOLAÑOS, Jignesh De Paz Primary Care Provider [phone] Arthur BOLAÑOS, Jignesh De Paz Primary Care Provider Uche METAL TECHNICIAN-C, Zahraa Primary Care Provider Uche METAL TECHNICIAN-C, Zahraa Attending Provider Uche METAL TECHNICIAN-C, Zahraa Referring Provider TOSHIA HUSTON Attending Unavailable BETZAIDA, TOSHIA Chen Referring Unavailable BONEZZI, IJGNESH M Primary Care Unavailable TOSHIA HUSTON Attending Unavailable BETZAIDA, TOSHIA D Referring Unavailable BONEZZI, JIGNESH M Primary Care Unavailable TOSHIA HUSTON Attending Unavailable BONEZZI, JIGNESH M Primary Care Unavailable TOSHIA HUSTON Attending Unavailable BETZAIDA TOSHIA D Referring Unavailable BONEZZI, JIGNESH M Primary Care Unavailable STEPHY PERALES Attending Unavailable BONEZZI, JIGNESH M Primary Care Unavailable STEPHY PERALES Referring Unavailable Uche METAL TECHNICIAN-C, Zahraa Primary Care Provider Uche METAL TECHNICIAN-C, Zahraa Attending Provider Uche METAL TECHNICIAN-C, Zahraa Referring Provider Porter BOLAÑOS, Hadley Calhoun Unavailable Uche CADD OPERATOR, Zahraa Unavailable Uche, Zahraa Primary Care Unavailable Huston, Toshia Referring Unavailable Toshia Huston Attending Unavailable Uche, Zahraa Referring Unavailable Uche, Zahraa Attending Unavailable Zahraa Ivey Primary Care Unavailable Zahraa Ivey Referring Unavailable Zahraa Ivey Attending Unavailable Zahraa Ivey Primary Care Unavailable Zahraa Ivey Referring Unavailable Zahraa Ivey Attending Unavailable Zahraa Ivey Primary Care Unavailable Allergies Allergy Classification Reported Allergen(s) Allergy Type Date of Onset Reaction(s) Facility (3 sources) Penicillin Drug Allergy 11-30-19 11 [facility] Work Phone: (20 sources) Penicillins; Translations: [Penicillins] allergy to substance 08-08-20 11 [facility] Work Phone: (12 sources) Grass pollen; Translations: [grass pollen] Allergy to substance 07-24-20 breathing and congestion [facility] (11 sources) Mold Extract Drug Allergy 07-24-20 21 breathing and congestion [facility] (11 sources) peanut allergenic extract Drug Allergy 07-24-20 21 swelling, vomiting [facility] (12 sources) Ragweed pollen; Translations: [ragweed pollen] Allergy to substance 07-24-20 breathing and congestion [facility] (12 sources) Tree and shrub pollen; Translations: [tree and shrub pollen] Allergy to substance 07-24-20 breathing and congestion [facility] (11 sources) Wheat preparation Drug Allergy 07-24-20 21 swelling, vomiting [facility] (2 sources) pet dander Allergy to substance 07-24-20 breathing and congestion [facility] Work Phone: (2 sources) white potato Propensity to adverse reactions 07-24-20 21 swelling, vomiting [facility] Work Phone: (9 sources) potato allergenic extract Drug Allergy 08-27-20 22 SWELLING, VOMITING [facility] (10 sources) animal dander; Translations: [animal dander] Allergy to substance 08-27-20 22 BREATHING AND CONGESTION [facility] (1 source) Mold Extract Drug Allergy 08-10-[address] [facility] Repository (1 source) peanut allergenic extract Drug Allergy 08-10-[address] [facility] (1 source) potato allergenic extract Drug Allergy 08-10-[address] [facility] (1 source) Wheat preparation Drug Allergy 08-10-[address] [facility] (1 source) peanut Food allergy (disorder) 07-19-20 [facility] Medications Current Medications Medication Drug Class(es) Dates Sig (Normalized) Sig (Original) [id number] 200 actuat albuterol 0.09 mg/actuat metered dose inhaler (20 sources) beta2-Adrenergic Agonist Start: 08-27-2022 Albuterol Sulfate 90 mcg/actuation Hfa Aerosol Inhaler Active 1 NMA INHALATION EVERY 6 HOURS as needed for SOB August 27, 2022 1:00am Start: 08-27-2022 Albuterol Sulf ate Active 1 INH INHALATION EVERY 6 HOURS August 27, 2022 12:00am Start: 07-03-2017 Start: 07-03-2017 take 1 puff(s) by in halation three times daily as needed Proventil HFA 108 (90 Base) MCG/ACT Inhalation Aerosol Solution 1 Puff(s) tid prn for 0 days Quantity: 1 {Inhalation} Refills: 3 Ordered: 03-Jul-2017 Toshia Santana DO Start : 03-Jul-2017 Active take 1 puff(s) by mo uth once daily as needed albuterol sulfate HFA 90 mcg/actuation aerosol inhaler INHALE 1 PUFF BY MOUTH 3ETIMES A DAY NEEDED active [facility] ALBUTEROL SULFAT E (PROVENTIL INHALATION) Inhale as instructed. Active ALBUTEROL SULFAT E (PROVENTIL INHALATION) Inhale as instructed. 0 Active Comment on above: Inhale as instructed . ALLERGY RELIEF (LORATADINE) 10 MG TABS (2 sources) Allergy Relief (loratadine) 10 mg tablet TAKE 1 TABLET BY MOUTHEONCE DAILY active [facility] 1 ml benralizumab 30 mg/ml auto-injector (20 sources) Interleukin-5 Receptor alpha-directed Cytolytic Antibody Start: 08-27-2022 Benralizumab (Fasenra Pen) 30 mg/mL Auto-Injector Active 30 mg SC [id number] August 27, 2022 1:00am Start: 07-09-2022 benralizumab ( FASENRA) 30 mg/mL injection Inject 1 mL subcutaneously every 4 weeks. 07/09/2022 Active Comment on above: Inject 1 mL subcutan eously every 4 weeks. biotin 1 mg chewable tablet (20 sources) Start: 08-27-2022 take 1 tablet by mouth once daily Biotin 1,000 mcg Tablet,Chewable Active 1000 ug PO DAILY August 27, 2022 1:00am take 1 tablet by mouth once stefanie y biotin 5 mg tablet 1 tablet by mouth once a day active Vicki Hidalgo 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 [facility] CENTRUM MINIS WOMEN 50+ (MUL TIPLE VITAMINS-MINERALS) TABS (2 sources) take 1 tablet by mouth once daily Centrum Minis Women 50 Plus 4 mg iron-200 mcg-25 mcg tablet 1 tablet by mouth once a day active Vicki Hidalgo 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 [facility] Centr Minis Wo men 50 Plus 4 mg iron-200 mcg-25 mcg tablet active [facility] DHEA (PRASTERONE (DHEA)) 50 MG CAPS (1 source) take 1 capsule by mouth once daily DHEA 50 mg capsule 1 capsule by mouth once a day active Vicki Hidalgo [facility] fluticasone propionate 0.05 mg/actuat metered dose nasal spray (13 sources) Corticosteroid Start: 08-27-2022 take 50 ug nasal route once daily Fluticasone Propionate (Flonase Allergy Relief) 50 mcg/actuation Media,Suspension Active 1 NMA INTRANASAL DAILY August 27, 2022 1:00am administer into each nostril Start: 08-27-2022 take 1 spray(s) nasa l route once daily Fluticasone Propionate (Flonase Allergy Relief) 50 mcg/actuation Media,Suspension Active 1 SPRAY INTRANASAL DAILY August 27, 2022 12:00am administer into each nostril take 1 spray(s) nasa l route once daily fluticasone propionate 50 mcg/actuation nasal spray,suspension 1 spray into both nostrils once a day active Vicki Hidalgo [facility] fluticasone prop ionate 50 mcg/actuation nasal spray,suspension active [facility] fluticasone prop ionate (FLONASE ALLERGY RELIEF NASAL) Use in the nose. Active Fluticasone Furoate-Vilanterol (20 sources) Corticosteroid, beta2-Adrenergic Agonist Start: 08-10-2023 Fluticasone Furoate-Vilanterol (Breo Ellipta) 200-25 mcg/dose blister with device Active 1 NMA INHALATION DAILY August 10, 2023 1:00am Start: 08-10-2023 Fluticasone Fu roate-Vilanterol (Breo Ellipta) 200-25 mcg/dose blister with device Active 1 INH INHALATION DAILY August 10, 2023 12:00am Start: 08-27-2022 End: 03-04-2023 Fluticasone Furoate-Vilanter ol (Breo Ellipta) 200-25 mcg/dose Blister With Device Discontinued 1 NMA INHALATION DAILY August 27, 2022 1:00am March 04, 2023 9:38am Start: 08-27-2022 End: 03-04-2023 Fluticasone Furoate-Vilanter ol (Breo Ellipta) 200-25 mcg/dose Blister With Device Discontinued 1 INH INHALATION DAILY August 27, 2022 12:00am March 04, 2023 8:38am take 1 puff(s) by in halation once daily Breo Ellipta 200 mcg-25 mcg/dose powder for inhalation 1 puff as directed once a day active Vicki Hidalgo LPN [facility] Breo Ellipta 200 mcg-25 mcg/dose powder for inhalation active [facility] Comment on above: Inhale 1 Inhalation as instructed once daily. levonorgestrel 0.785345 mg/hr intrauterine system (20 sources) Progestin, Progestin-containing Intrauterine Device Start: 08-27-2022 Levonorgestrel (Mirena) 20 mcg/24 hours (8 yrs) 52 mg Intrauterine Device Active 20 ug INTRA-UTER DAILY August 27, 2022 1:00am Start: 06-25-2017 levonorgestrel (MIRENA) 20 mcg/24 hr (5 years) IUD Inserted in office 1 Each 06/25/2017 Active Comment on above: Inserted in office loratadine 10 mg oral tablet (20 sources) Start: 07-13-2023 take 1 tablet by mouth once loratadine (CLARITIN) 10 mg tablet Take 1 tablet by mouth every afternoon. 10/27/2023 Active Comment on above: Take 1 tablet by windy th every afternoon. meloxicam 15 mg oral tablet (2 sources) Nonsteroidal Anti-inflammatory Drug Start: 1 take 15 mg by mouth once daily Meloxicam Active 15 MG PO DAILY July 24, 2021 10:40am Do not take in conjunction with other NSAIDs. metFORMIN hydrochloride 500 mg oral tablet (5 sources) Biguanide Start: 5 metFORMIN (GLUCOPHAGE) 500 mg tablet 01/11/2025 Active montelukast 10 mg oral tablet (20 sources) Leukotriene Receptor Antagonist Start: 7 End: 3 take 1 tablet by mouth once daily Montelukast 10 mg tablet Active 10 mg PO DAILY August 10, 2023 1:00am Multivit With Min-Folic Acid (One-A-Day Vitacraves Immunity) 200 mcg tablet,chewable (11 sources) Start: 1 take 1 tablet by mouth once Multivit With Min-Folic Acid (One-A-Day Vitacraves Immunity) 200 mcg tablet,chewable Active TABLET PO July 24, 2021 12:26pm Start: 07-24-2021 take 1 tablet by windy th once daily Multivit With Min-Folic Acid (One-A-Day Vitacraves Immunity) 200 mcg tablet,chewable Active 1 {tbl} PO DAILY July 24, 2021 1:00am Start: 07-24-2021 take 1 tablet by windy th once daily Multivit With Min-Folic Acid (One-A-Day Vitacraves Immunity) 200 mcg tablet,chewable Active 1 TABLET PO DAILY July 24, 2021 1:00am Start: 07-24-2021 take 1 tablet by windy th once daily Multivit With Min-Folic Acid (One-A-Day Vitacraves Immunity) 200 mcg tablet,chewable Active 1 TABLET PO DAILY July 24, 2021 12:00am Start: 07-24-2021 take 1 tablet by mouth once Mu ltivit With Min-Folic Acid (One-A-Day Vitacraves Immunity) 200 mcg tablet,chewable Active TABLET PO July 24, 2021 1:00am multivitamin with minerals (ONE-A-DAY 50 PLUS ORAL) (2 sources) multivitamin wit h minerals (ONE-A-DAY 50 PLUS ORAL) Take by mouth. Active polyethylene glycol 3350 769551 mg / potassium chloride 2980 mg / sodium bicarbonate 6720 mg / sodium chloride 5840 mg / sodium sulfate 48752 mg powder for oral solution (1 source) Osmotic Laxative Start: 2 End: 2 peg 3350-electrolytes (COLYTE) 240-22.72-6.72 -5.84 gram solution Indications: Special screening for malignant neoplasms, colon Take 4,000 mL by mouth one time only for 1 dose. 4000 mL 0 07/09/2022 07/09/2022 Active Comment on above: Take 4,000 mL by windy th one time only for 1 dose. prasterone 25 mg oral capsule (7 sources) Start: 3 Prasterone, DHEA, (DHEA) 25 mg cap 08/11/2023 Active rosuvastatin calcium 5 mg oral tablet (8 sources) HMG-CoA Reductase Inhibitor Start: 3 take 1 tablet by mouth once daily Rosuvastatin 5 mg tablet Active 5 mg PO DAILY August 10, 2023 1:00am Start: 06-29-2023 Start: 05-27-2023 Start: 05-04-2023 traMADol hydrochloride 50 mg oral tablet (1 source) Opioid Agonist Start: 02-26-2024 End: 03-04-2024 take 1 tablet by mouth every eight hours as needed for pain traMADol (ULTRAM) 50 mg tablet Indications: Symptomatic varicose veins of both lower extremities Take 1 tablet by mouth every 8 hours as needed for pain for up to 7 days. 21 tablet 0 02/26/2024 03/04/2024 Active VITAMIN D (ERGOCALCIFEROL) (ERGOCALCIFEROL) 1.25 MG (46340 UT) CAPS (2 sources) Vitamin D2 1,250 mcg (50,000 unit) capsule 1 capsule by mouth Sundays active Vicki Hidalgo LPN [facility] Vitamin D2 1,250 mcg (50,000 unit) capsule active [facility] Completed/Discontinued Medications Medication Drug Class(es) Dates Sig (Normalized) Sig (Original) acetaminophen 650 mg / propoxyphene napsylate 100 mg oral tablet (20 sources) Opioid Agonist Start: 11-17-2006 End: 08-14-2008 take 1 tablet by mouth three times daily as needed DARVOCET-N 100, 100-650MG (Oral Tablet) 1 (one) Tablet TID/PRN for 0 days Quantity: 30 {Tablet} Refills: 0 Ordered: 17-Nov-2006 CELESTE Perales LPN Start : 17-Nov-2006 End : 14-Aug-2008 Inactive Comments: avoid with tylenol Comment on above: avoid with tylenol acetaminophen 650 mg / propoxyphene napsylate 100 mg oral tablet (20 sources) Opioid Agonist Start: 11-17-2006 End: 08-14-2008 ALPRAZolam 0.5 mg oral tablet (2 sources) Benzodiazepine Start: 02-18-2024 End: 02-18-2024 take 2 tablets by mouth once ALPRAZolam (XANAX) 0.5 mg tablet Indications: Symptomatic varicose veins of both lower extremities Take 2 tablets by mouth one time only for 1 dose. 2 tablet 0 02/18/2024 02/18/2024 Start: 02-09-2024 End: 02-09-2024 take 2 tablets by mouth once ALPRAZolam (XANAX) 0.5 mg tablet Indications: Symptomatic varicose veins of both lower extremities Take 2 tablets by mouth one time only for 1 dose. 2 tablet 0 02/09/2024 02/09/2024 aspirin 81 mg delayed release oral tablet (9 sources) Platelet Aggregation Inhibitor, Nonsteroidal Anti-inflammatory Drug Start: 08-29-2022 End: 03-04-2023 take 1 tablet by mouth once daily Aspirin 81 mg tablet,delayed release (DR/EC) Discontinued 81 mg PO DAILY August 29, 2022 1:00am March 04, 2023 9:38am atenolol 25 mg oral tablet (20 sources) beta-Adrenergic Kanchan End: 07-28-2007 azithromycin 250 mg oral tablet (20 sources) Macrolide Antimicrobial Start: 12-24-2022 End: 05-04-2023 Start: 11-19-2016 End: 03-09-2017 benzonatate 100 mg oral caps ule (20 sources) Non-narcotic Antitussive Start: 12-04-2015 End: 02-01-2016 Black Elderberry(Campos-Flowe r) (4 sources) 12 hr buPROPion hydrochlorid e 90 mg / naltrexone hydrochloride 8 mg extended release oral tablet (20 sources) Opioid Antagonist, Aminoketone Start: 03-19-2015 End: 04-16-2015 Start: 03-19-2015 End: 04-16-2015 CONTRAVE, 8-90MG (Oral Table t Extended Release 12 Hour) 1 (one) Tablet ER 12HR 1po in am for 1 week then 1 bid for 1 week then 2 tabs in am and 1 at pm for 1 week for 2 tabs bid for 30 days Refills: 0 Ordered: 16-Apr-2015 CELESTE Perales LPN Start : 19-Mar-2015 End : 16-Apr-2015 Inactive Comments: thirty days Comment on above: thirty days calcium carbonate 1500 mg / cholecalciferol 200 unt oral tablet (1 source) Vitamin D Start: 09-16-19 13 take 1 tablet by mouth once daily CALCIUM + D 600-200 MG-UNIT TABS One tablet by mouth daily CALCIUM CARBONATE-VITAMIN D [id number] Anthony Panchal MD cetirizine hydrochloride 10 mg disintegrating oral tablet (20 sources) Histamine-1 Receptor Antagonist Start: 06-27-20 11 End: 10-03-19 12 ciprofloxacin 500 mg oral tablet (20 sources) Quinolone Antimicrobial Start: 04-30-20 10 End: 07-08-20 10 24 hr clarithromycin 500 mg extended release oral tablet (20 sources) Macrolide Antimicrobial Start: 12-04-19 16 End: 12-18-19 16 Start: 12-04-2015 End: 12-18-2015 take 2 tablets by mouth once daily BIAXIN XL PAC, 500MG (Oral Tablet Extended Release 24 Hour) 2 (two) Tablet ER 24HR daily for 14 days Quantity: 28 {Tablet} Refills: 0 Ordered: 04-Dec-2015 Jignesh Gibson MD Start : 04-Dec-2015 End : 18-Dec-2015 Inactive Start: 12-04-2015 End: 12-18-2015 take 2 tablets by mouth once daily BIAXIN XL PAC, 500MG (Oral Tablet Extended Release 24 Hour) 2 (two) Tablet ER 24HR daily for 14 days Quantity: 28 {Tablet} Refills: 0 Ordered: 04-Dec-2015 Jignesh Gibson MD Start : 04-Dec-2015 End : 18-Dec-2015 Inactive clindamycin 300 mg oral capsule (2 sources) Lincosamide Antibacterial Start: 02-26-2024 End: 03-17-2024 take 1 capsule by mouth every eight hours clindamycin (CLEOCIN) 300 mg capsule Take 1 capsule by mouth every 8 hours for 10 days. 30 capsule 0 03/07/2024 03/17/2024 codeine phosphate 2 mg/ml / guaiFENesin 20 mg/ml oral solution (20 sources) Opioid Agonist Start: 01-31-2008 End: 08-14-2008 Start: 01-31-2008 End: 08-14-2008 GUAIATUSSIN AC, 100-10MG/5ML (Oral Syrup) 1 Syrup 1 tsp q hs for 0 days Quantity: 6 {Ounce(s)} Refills: 0 Ordered: 31-Jan-2008 CELESTE Perales LPN Start : 31-Jan-2008 End : 14-Aug-2008 Inactive crisaborole 0.02 mg/mg topic al ointment (20 sources) Start: 07-18-2019 End: 11-03-2022 Start: 04-27-2019 Eucrisa 2 % Ex ternal Ointment 1 (one) Application daily for 0 days Quantity: 2 {Applicator} Refills: 0 Ordered: 27-Jun-2019 Cande Bach LPN Start : 27-Apr-2019 Active Comment on above: Mail order. Medicati on taken as needed. Medication taken as needed. cyclobenzaprine hydrochlorid e 5 mg oral tablet (20 sources) Muscle Relaxant Start: 06-22-2017 End: 08-19-2022 Start: 06-22-2017 End: 07-02-2017 CYCLOBENZAPRINE HCL 5 MG TAB S Take 1-2 tablets every 8 hours as needed CYCLOBENZAPRINE HCL [id number] Jairon BOLIVAR Start: 11-17-2006 End: 08-14-2008 Start: 11-17-2006 End: 08-14-2008 FLEXERIL, 10MG (Oral Tablet) for 0 days Refills: 0 Ordered: 17-Nov-2006 CELESTE Perales LPN Start : 17-Nov-2006 End : 14-Aug-2008 Inactive Comment on above: TAKE 1 OR 2 TABLETS BY MOUTH EVERY 8 HOURS NEEDED MAKEDA 28, 3-0.03MG (Oral Tablet) (20 sources) Progestin, Estrogen End: 07-28-2007 End: 07-28-2007 take 1 tablet by mouth once daily MAKEDA 28, 3-0.03MG (Oral Tablet) 1 tab qd for 0 days Refills: 0 Ordered: 31-Jan-2008 Ryan SHAVONNEYumiko End : 28-Jul-2007 Discontinued elderberry fruit and flower (20 sources) ergocalciferol 1.25 mg oral capsule (20 sources) Provitamin D2 Compound Start: 11-03-2022 Start: 09-09-2022 Start: 08-15-2022 Start: 07-14-2022 Start: 07-14-2022 Start: 07-15-2021 Start: 10-10-2020 take 1 capsule by mo uth every week, then take 1 capsule by mouth two times weekly Ergocalciferol 1.25 MG (47110 UT) Oral Capsule 1 (one) Capsule alter1 weekly with 1 twice weekly for 90 days Quantity: 32 {Capsule} Refills: 3 Ordered: 10-Oct-2020 Ursula Gary CNP, CNP, Mary E Start : 10-Oct-2020 Active Start: 08-20-2020 take 1 capsule by mo uth every week, then take 1 capsule by mouth two times weekly Ergocalciferol 1.25 MG (64188 UT) Oral Capsule 1 (one) Capsule alter1 weekly with 1 twice weekly for 90 days Quantity: 32 {Capsule} Refills: 3 Ordered: 20-Aug-2020 Ursula Gary CNP, CNP, Mary E Start : 20-Aug-2020 Active Start: 11-15-2019 take 1 capsule by mo uth every week, then take 1 capsule by mouth two times weekly Ergocalciferol 1.25 MG (95529 UT) Oral Capsule 1 (one) Capsule alter1 weekly with 1 twice weekly for 90 days Quantity: 32 {Capsule} Refills: 3 Ordered: 15-Nov-2019 Ursula Gary CNP, CNP, Mary E Start : 15-Nov-2019 Active Start: 12-29-2018 take 1 capsule by mo uth two times weekly Ergocalciferol 92338 UNIT Oral Capsule 1 (one) Capsule twice a week for 90 days Quantity: 32 {Capsule} Refills: 3 Ordered: 29-Dec-2018 Ursula Gary CNP, CNP, Mary E Start : 29-Dec-2018 Active Start: 08-09-2018 take 1 capsule by mo [facility] every week Ergocalciferol 76609 UNIT Oral Capsule 1 (one) Capsule weekly for 0 days Quantity: 12 {Capsule} Refills: 3 Ordered: 09-Aug-2018 Ursula Gary CNP, CNP, Mary E Start : 09-Aug-2018 Active Start: 03-30-2018 End: 08-09-2018 Start: 03-30-2018 End: 08-09-2018 Ergocalciferol 81863 UNIT Or al Capsule 1 (one) Capsule two times weekly x 3 months for 0 days Quantity: 24 {Capsule} Refills: 0 Ordered: 09-Aug-2018 Ursula Gary CNP, CNP, Mary E Start : 30-Mar-2018 End : 09-Aug-2018 Discontinued Comments: Mail order. Start: 06-22-2017 ergocalciferol , vitamin D2, (DRISDOL) 50,000 unit capsule 06/22/2017 Active Comment on above: Mail order. esomeprazole 40 mg delayed release oral capsule (20 sources) Proton Pump Inhibitor End: 9 21 day ethinyl estradiol 0.009683 mg/hr / etonogestrel 0.005 mg/hr vaginal system (20 sources) Progestin, Estrogen End: 7 ferrous sulfate (1 source) Start: 3 take 1 tablet by mouth once daily IRON 325 (65 Fe) MG TABS One tablet by mouth daily FERROUS SULFATE [id number] Anthony Panchal MD FLUoxetine 10 mg oral capsule (20 sources) Serotonin Reuptake Inhibitor Start: 4 End: 5 Start: 09-16-2012 take 1 tablet by [facility] once daily FLUOXETINE HCL 10 MG TABS One tablet by mouth daily FLUOXETINE HCL [id number] Anthony Panchal MD FLUTICASONE-SALMETEROL AERO (20 sources) Corticosteroid, beta2-Adrenergic Agonist Start: 09-16-2012 ADVAIR HFA AERO inhale 2 puffs twice daily FLUTICASONE-SALMETEROL AERO [id number] Anthony Panchal MD End: 08-09-2018 End: 07-16-2015 End: 08-09-2018 End: 07-16-2015 End: 07-09-2022 take 1 puff(s) by inhalation twice daily fluticasone-salmeterol (ADVAIR, WIXELA) 250-50 mcg/dose inhaler Inhale 1 Puff as instructed twice daily. 0 07/09/2022 Discontinued End: 08-09-2018 ADVAIR DISKUS, 250-50MCG/DOS E (Inhalation Aerosol Powder Breath Activated) bid (250-50 MCG/DOSE) End : 09-Aug-2018 Discontinued End: 07-16-2015 take 2 puff(s) by inhalation twice daily ADVAIR HFA, 230-21MCG/ACT (Inhalation Aerosol) 2 puffs bid (230-21 MCG/ACT) End : 16-Jul-2015 Discontinued Comment on above: Inhale 1 Puff as ins tructed twice daily. 120 actuat formoterol fumara te 0.005 mg/actuat / mometasone furoate 0.2 mg/actuat metered dose inhaler (20 sources) Corticosteroid, beta2-Adrenergic Agonist Start: 06-18-2012 End: 09-29-2013 Start: 06-18-2012 End: 09-29-2013 Start: 06-18-2012 End: 09-29-2013 DULERA, 200-5MCG/ACT (Inhala tion Aerosol) 2 (two) Aerosol bid for 30 days Refills: 0 Ordered: 29-Sep-2013 CELESTE Perales LPN Start : 18-Jun-2012 End : 29-Sep-2013 Inactive Start: 10-17-2011 End: 09-16-2012 DULERA AERO 09/16 MOMETASONE FURO-FORMOTEROL FUM AERO [id number] Anthony Panchal MD Start: 10-17-2011 DULERA AERO 20 08/15/03 MOMETASONE FURO-FORMOTEROL FUM AERO [id number] Hilario Rivera DO furosemide 20 mg oral tablet (20 sources) Loop Diuretic Start: 11-29-2010 End: 09-29-2013 hydroCHLOROthiazide 12.5 mg oral tablet (1 source) Thiazide Diuretic Start: 03-05-2011 take 1 tablet by mouth once daily HYDROCHLOROTHIAZIDE 12.5 MG TABS One tablet by mouth daily HYDROCHLOROTHIAZIDE [id number] Anthony Panchal MD IUD's (20 sources) IUD'S (Intrauterine Intrauterine Device) (20 sources) IUD'S (Intrauter ine Intrauterine Device) uad uad for 0 days Refills: 0 Ordered: 15-Aug-2009 CELESTE Perales LPN Active IUD'S (Intrauter ine Intrauterine Device) uad uad for 0 days Refills: 0 Ordered: 15-Aug-2009 CELESTE Perales Active levocetirizine dihydrochloride 5 mg oral tablet (20 sources) Histamine-1 Receptor Antagonist Start: 06-11-2015 End: 02-18-2024 take 1 tablet by mouth once daily Levocetirizine 5 mg tablet Discontinued 5 mg PO DAILY July 24, 2021 1:00am March 04, 2023 9:38am Comment on above: Take 5 mg by mouth. levoFLOXacin 500 mg oral tablet (20 sources) Quinolone Antimicrobial Start: 06-27-2019 End: 07-07-2019 Start: 07-08-2010 End: 07-18-2010 lidocaine 400 mg, sodium bicarbonate 20 mEq in NaCl 0.9% 1,000 mL solution (TUMESCENT WITHOUT EPINEPHrine) (1 source) Start: 02-18-2024 End: 02-18-2024 lidocaine 400 mg, sodium bicarbonate 20 mEq in NaCl 0.9% 1,000 mL solution (TUMESCENT WITHOUT EPINEPHrine) lidocaine 400 mg, sodium bicarbonate 20 mEq in NaCl 0.9% 1,040 mL solution (TUMESCENT WITHOUT EPINEPHrine) (1 source) Start: 02-12-2024 End: 02-12-2024 lidocaine 400 mg, sodium bicarbonate 20 mEq in NaCl 0.9% 1,040 mL solution (TUMESCENT WITHOUT EPINEPHrine) lysine 500 mg oral capsule (20 sources) Start: 11-15-2019 End: 07-15-2021 Start: 09-16-2012 take 1 tablet by windy once daily LYSINE CAPS One tablet by mouth daily LYSINE CAPS [id number] Anthony Panchal MD metaxalone 800 mg oral table t (20 sources) Start: 07-03-2017 End: 09-01-2017 metoprolol tartrate 50 mg or al tablet (20 sources) beta-Adrenergic Kanchan End: 08-15-2009 mometasone furoate 0.05 mg/a ctuat metered dose nasal spray (20 sources) Corticosteroid Start: 02-15-2014 End: 07-03-2017 Start: 02-15-2014 End: 07-03-2017 Nasonex 50 MCG/ACT Nasal Suspension 2 (two) Puff(s) qhs for 0 days Quantity: 1 {Bottle} Refills: 0 Ordered: 03-Jul-2017 Audrey Johnson Start : 15-Feb-2014 End : 03-Jul-2017 Discontinued Comments: ordered by Dr. Brooke Start: 10-17-2011 NASONEX 50 MCG /ACT SUSP MOMETASONE FUROATE [id number] Hilario Rivera DO Start: 2011 End: 10-03-2011 Start: 2011 End: 10-03-2011 take 2 puff(s) by inhalation once daily in the evening ASMANEX 14 METERED DOSES, 220MCG/INH (Inhalation Aerosol Powder Breath Activated) 2 (two) Puff(s) qpm for 0 days Quantity: 1 {Aero_Pow_Br_Act} Refills: 6 Ordered: 03-Oct-2011 CELESTE Perales LPN Start : 09-Apr-2011 End : 03-Oct-2011 Inactive Start: 03-25-2011 End: 05-01-2011 Start: 03-25-2011 End: 05-01-2011 take 2 puff(s) by inhalation once daily ASMANEX 30 METERED DOSES, 110MCG/INH (Inhalation Aerosol Powder Breath Activated) 2 (two) Puff(s) daily for 0 days Quantity: 1 {Aero_Pow_Br_Act} Refills: 0 Ordered: 01-May-2011 CELESTE Perales LPN Start : 25-Mar-2011 End : 01-May-2011 Inactive Comment on above: ordered by Dr. Brooke MULTIPLE VITAMINS-MINERALS (1 source) Start: 10-17-2011 CENTRUM TABS MULTIPLE VITAMINS-MINERALS [id number] Hilario Rivera DO nebivolol 5 mg oral tablet (20 sources) Start: 11-29-2010 End: 09-16-2012 take 0.5 tablet by mouth once daily BYSTOLIC 5 MG TABS 1/2 tablet by mouth daily NEBIVOLOL HCL [id number] Noemi Montejo RN End: 04-07-2011 nystatin [id number] unt/ml oral suspension (20 sources) Polyene Antifungal Start: 08-20-2020 End: 08-27-2020 Start: 08-20-2020 End: 08-27-2020 take 4-6 mL by mouth four times daily Nystatin [id number] UNIT/ML Mouth/Throat Suspension 4-6 Milliliter qid for 7 days Quantity: 1 {Bottle} Refills: 0 Ordered: 20-Aug-2020 Abdirahman PIZARRO, Yane Abdirahman CADD OPERATOR, Yane Start : 20-Aug-2020 End : 27-Aug-2020 Inactive omalizumab 150 mg injection (20 sources) Anti-IgE Start: 07-15-2021 End: 04-30-2022 Xolair 150 MG Monet bcutaneous Solution Reconstituted one in each arm monthy (150 MG) Active omeprazole 20 mg delayed rel ease oral capsule (20 sources) Proton Pump Inhibitor Start: 07-15-2017 End: 09-01-2017 Start: 07-15-2017 End: 09-01-2017 Omeprazole 20 MG Oral Capsul e Delayed Release [address] daily for 0 days Quantity: 180 {Capsule} Refills: 3 Ordered: 01-Sep-2017 Zaina Huffman CMA Start : 15-Jul-2017 End : 01-Sep-2017 Inactive Comments: Mail order. Start: 11-29-2010 take 1 tablet by windy th once daily OMEPRAZOLE 20 MG CPDR One tablet by mouth daily OMEPRAZOLE [id number] Noemi Montejo RN Comment on above: Mail order. oxyCODONE hydrochloride 5 mg oral capsule (9 sources) Opioid Agonist Start: 022 End: 023 take 1 capsule by mouth every six hours as needed for pain Oxycodone 5 mg capsule Discontinued 5 mg PO EVERY 6 HOURS as needed for pain 42 7 0 August 29, 2022 March 04, 2023 9:39am Other acute postprocedural pain Other acute postprocedural pain pimecrolimus 10 mg/ml topical cream (20 sources) Calcineurin Inhibitor Immunosuppressant Start: 009 Start: 08-15-2009 ELIDEL, 1% (Ex ternal Cream) Cream BID for 0 days Quantity: 1 {Cream} Refills: 3 Ordered: 14-Mar-2010 CELESTE Perales LPN Start : 15-Aug-2009 Inactive potassium,chelated 99 mg oral tablet (1 source) Start: 09-16-2012 take 1 tablet by mouth once daily POTASSIUM 99 MG TABS One tablet by mouth daily POTASSIUM [id number] Anthony Panchal MD predniSONE 10 mg oral tablet (20 sources) Start: 12-24-2022 End: 05-04-2023 Start: 12-17-2022 End: 12-22-2022 Start: 09-04-2017 End: 09-29-2017 Start: 09-04-2017 End: 09-29-2017 PredniSONE 10 MG Oral Tablet 1 Tablet TAD for 0 days Quantity: 18 {QS} Refills: 0 Ordered: 29-Sep-2017 Alycia Armando RN Start : 04-Sep-2017 End : 29-Sep-2017 Inactive Comments: 3 pills for 3 days 2 for 3 days and 1 for 3 days. Take with food. Start: 07-03-2017 End: 09-01-2017 Start: 12-04-2015 End: 12-19-2015 Start: 12-04-2015 End: 12-19-2015 take 2 tablets by mouth once daily, then take 1 tablet by mouth once daily, then take 0.5 tablet by mouth once daily PREDNISONE, 20MG (Oral Tablet) 1 (one) Tablet uad for 15 days Refills: 0 Ordered: 04-Dec-2015 Jignesh Gibson MD Start : 04-Dec-2015 End : 19-Dec-2015 Inactive Comments: 2 a d for 5 d, 1 a d for 5d, 1/2 a d for 5 d Comment on above: 2 a d for 5 d, 1 a d for 5d, 1/2 a d for 5 d 1 bid w/foodx 3 days then1 qd x2 days 3 pills for 3 days 2 for 3 days and 1 for 3 days. Take with food. raNITIdine 150 mg oral table t (20 sources) Histamine-2 Receptor Antagonist Start: 06-07-2017 End: 07-09-2022 take 1 mg by mouth once daily Za ntac 150 MG Oral Tablet qd (150 MG) Inactive Comment on above: Mail order. solifenacin succinate 5 mg o ral tablet (20 sources) Cholinergic Muscarinic Antagonist Start: 03-14-2010 End: 07-08-2010 triamcinolone acetonide 0.05 5 mg/actuat metered dose nasal spray (20 sources) Corticosteroid Start: 10-23-2008 End: 08-15-2009 Start: 10-23-2008 End: 08-15-2009 Start: 10-23-2008 End: 08-15-2009 NASACORT AQ, 55MCG/ACT (Nasa l Aerosol Solution) 2 (two) Aerosol Soln qd for 0 days Refills: 0 Ordered: 23-Oct-2008 CELESTE Perales LPN Start : 23-Oct-2008 End : 15-Aug-2009 Inactive Start: 10-23-2008 End: 08-15-2009 NASACORT AQ, 55MCG/ACT (Nasa l Aerosol Solution) 2 (two) Aerosol Soln qd for 0 days Refills: 0 Ordered: 23-Oct-2008 CELESTE Perales Start : 23-Oct-2008 End : 15-Aug-2009 Inactive valACYclovir 1000 mg oral ta blet (20 sources) Herpesvirus Nucleoside Analog DNA Polymerase Inhibitor, Herpes Simplex Virus Nucleoside Analog DNA Polymerase Inhibitor, Herpes Zoster Virus Nucleoside Analog DNA Polymerase Inhibitor Start: 10-06-2022 Start: 11-15-2019 Start: 11-15-2019 Valtrex 1 GM O ral Tablet 2 Tablet tid for 7 days then 2 bid one day prn cold sore for 0 days Quantity: 46 {Tablet} Refills: 3 Ordered: 15-Nov-2019 Ursula Gary CNP, CNP, Mary E Start : 15-Nov-2019 Active Start: 12-02-2017 Valtrex 1 GM O ral Tablet 2 Tablet tid for 7 days then 2 bid one day prn cold sore for 0 days Quantity: 46 {Tablet} Refills: 1 Ordered: 02-Dec-2017 Ursula Gary CNP, CNP, Mary E Start : 02-Dec-2017 Active Start: 11-29-2010 VALTREX 1 GM T ABS as needed VALACYCLOVIR HCL [id number] Noemi Montejo RN Vit C-Zinc Citrate-Elderberr y ([facility]) 45-3.75-50 mg Tablet,Chewable (9 sources) Start: 08-27-2022 End: 08-10-2023 Vit C-Zinc Citrate-Elderberr y ([facility]) 45-3.75-50 mg Tablet,Chewable Discontinued 1 {tbl} PO DAILY August 27, 2022 1:00am August 10, 2023 3:16pm Start: 08-27-2022 End: 08-10-2023 take 1 tablet by mouth once daily Vit C-Zinc Citrate-Elderberry ([facility]) 45-3.75-50 mg Tablet,Chewable Discontinued 1 TABLET PO DAILY August 27, 2022 12:00am August 10, 2023 2:16pm Start: 08-27-2022 take 1 tablet by windy th once daily Vit C-Zinc Citrate-Elderberry ([facility]) 45-3.75-50 mg Tablet,Chewable Active 1 TABLET PO DAILY August 27, 2022 1:00am Start: 08-27-2022 take 1 tablet by windy th once daily Vit C-Zinc Citrate-Elderberry ([facility]) 45-3.75-50 mg Tablet,Chewable Active 1 TABLET PO DAILY August 27, 2022 12:00am Problems Active Problems Problem Classification Problem Date Documented Da te Episodic/Chronic Acute bronchitis (20 sources) Acute bronchitis; Translations: [Bronchitis, acute] Resolved: 9 06-19-2015 Episodic Allergic reactions (20 sources) Food allergy; Translations: [Eczema] Resolved: 7 07-03-2017 Episodic Comment on above: peanut, walnut corn and wheat. will try to avoid and see if helps. Anxiety disorders (20 sources) Acute stress disorder; Translations: [Stress reaction] 08-09-2018 Chronic Comment on above: stable now. help out more. more time for self. 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 4-5 times last year. on Advair, singulair , Wt loss better otoday see Sibilia on and o ff prednisone. 4-5 times last year. on Breo, singulair , Wt loss see Sibilia on and o ff prednisone. 4-5 times last year. on Breo, singulair , Wt lossSedenae Liuyura, gets Solair see Sibilia on and o ff prednisone. 4-5 times last year. on Breo, singulair , Wt lossSedenae Martinura, gets SolairOut of breo today given samples for 100mcg/25mcg see Sibilia on and o ff prednisone. 4-5 times last year. on Breo, singulair , Wt lossSedenae Barrios, gets Solair, wears mask at work. INHALER Asthma (20 sources) Asthma Cardiac dysrhythmias (20 sources) Paroxysmal supraventricular tachycardia; Translations: [Paroxysmal supraventricular tachycardia] Onset: 1 11-29-2010 Chronic Comment on above: off all med's, saw o fori. no signs and symptoms now. jeffry since lungs under control Cardiac dysrhythmias (20 sources) Palpitations; Translations: [Palpitation] Onset: 1 Resolved: 6 03-05-2011 Episodic Comment on above: better after off caf finee Chronic obstructive pulmonary disease and bronchiectasis (20 sources) Bronchitis; Translations: [Bronchitis] Resolved: 7 07-03-2017 Episodic Chronic obstructive pulmonary disease and bronchiectasis (20 sources) Chronic obstructive pulmonary disease and bronchiectasis Disorders of lipid metabolism (20 sources) Hyperlipidemia; Translations: [Hyperlipidemia] 05-01-2022 Chronic Esophageal disorders (20 sources) Gastroesophageal reflux disease; Translations: [GERD (gastroesophageal reflux disease)] 08-09-2018 Chronic Fever of unknown origin (20 sources) Fever, unspecified; Translations: [Fever] Resolved: 9 01-08-2015 Episodic Comment on above: keep temperature log Genitourinary symptoms and ill-defined conditions (20 sources) Urinary frequency; Translations: [Polyuria] Resolved: 5 01-01-2015 Episodic Comment on above: ? urgency. all negat negar. not alot caffiene. has IUD. talk about using detrol etc. not using alot caffiene on water pill Heart valve disorders (1 source) Mitral valve prolapse; Translations: [Nonrheumatic mitral (valve) prolapse] Onset: 1 11-29-2010 Chronic Immunizations and screening for infectious disease (20 sources) Need for prophylactic vaccination and inoculation against influenza; Translations: [Needs influenza immunization] Onset: 5 Resolved: 6 07-18-2019 Episodic Joint disorders and dislocations; trauma-related (3 sources) Chondromalacia of patella; Translations: [Unspecified internal derangement of unspecified knee] 03-24-2013 Chronic Malaise and fatigue (20 sources) Fatigue; Translations: [Fatigue] Onset: 1 Resolved: 1 11-29-2010 Episodic Comment on above: vit d low, stress, E BV reactive. allergies. needs to cut back on schedule. relaxation breathing. consider wellbutrin. talk about diet. Menopausal disorders (6 sources) Menopausal flushing; Translations: [Perimenopausal vasomotor symptoms] 06-09-2023 Chronic Menstrual disorders (20 sources) Irregular periods; Translations: [Irregular periods] 07-15-2021 Chronic Nonspecific chest pain (20 sources) Chest pain; Translations: [Chest pain] Resolved: 4 09-29-2013 Episodic Comment on above: right now it seems l kamryn pericarditis. will finsih workup for PE. nsaids. Nutritional deficiencies (20 sources) Vitamin D deficiency, unspecified; Translations: [Vitamin D deficiency] Onset: 5 08-09-2018 Chronic Comment on above: to double dose now to double dose now, 50,000 twice weekly Osteoarthritis (12 sources) Osteoarthritis of joint of right ankle and/or foot; Translations: [Primary osteoarthritis, right ankle and foot] Chronic Other acquired deformities (20 sources) Acquired scoliosis; Translations: [Scoliosis deformity of spine] 04-27-2019 Chronic Comment on above: improved Other circulatory disease (20 sources) Abnormal chest sounds; Translations: [Abnormal lung sounds] Resolved: 9 06-27-2019 Episodic Other circulatory disease (10 sources) Elevated blood pressure; Translations: [Elevated blood pressure reading] 05-13-2023 Episodic Other circulatory disease (3 sources) History of cardiac arrhythmia; Translations: [Personal history of other diseases of the circulatory system] 07-13-2023 Episodic Other connective tissue disease (20 sources) Pain in limb; Translations: [Limb pain] Resolved: 5 07-31-2015 Episodic Other connective tissue disease (20 sources) Leg swelling symptom; Translations: [Swelling of lower limb] 11-15-2019 Episodic Comment on above: left leg from injury to leg has had biopsy in past, lit given for blood flow screening Other connective tissue disease (3 sources) Digital mucous cyst of right hand; Translations: [Ganglion, right hand] Onset: 5 06-28-2025 Episodic Other diseases of veins and lymphatics (3 sources) Chronic acquired lymphedema; Translations: [Lymphedema, not elsewhere classified] 03-29-2024 Chronic Other diseases of veins and lymphatics (1 source) Lymphedema, not elsewhere classified; Translations: [Secondary lymphedema] Onset: 5 Chronic Other diseases of veins and lymphatics (3 sources) Peripheral venous insufficiency; Translations: [Venous insufficiency (chronic) (peripheral)] 03-29-2024 Episodic Other diseases of veins and lymphatics (1 source) Venous insufficiency (chronic) (peripheral); Translations: [Venous (peripheral) insufficiency] Onset: 5 Episodic Other lower respiratory disease (20 sources) Dyspnea; Translations: [SOB (shortness of breath)] Onset: 1 11-29-2010 Episodic Other lower respiratory disease (20 sources) Cough; Translations: [Cough] Resolved: 9 09-29-2017 Episodic Other lower respiratory disease (20 sources) Dyspnea on exertion; Translations: [SOB (shortness of breath) on exertion] Resolved: 4 07-27-2015 Episodic Other lower respiratory disease (20 sources) Wheezing; Translations: [Wheezing] Resolved: 4 02-16-2014 Episodic Other nervous system disorders (3 sources) Carpal tunnel syndrome, right upper limb; Translations: [Carpal tunnel syndrome] Onset: 5 06-28-2025 Chronic Other nervous system disorders (9 sources) Acute postoperative pain; Translations: [Other acute postprocedural pain] 08-29-2022 Episodic Other non-traumatic joint disorders (20 sources) Arthralgia of the ankle and/or foot; Translations: [Pain in joint involving ankle and foot, unspecified laterality] Resolved: 9 07-31-2015 Episodic Comment on above: planning surgery wit Dr. julien. has had 6 times before--cleans out joint--helps cleared for surgeryblood work and perop done Other non-traumatic joint disorders (20 sources) Hip pain; Translations: [Acute pain of left hip] Resolved: 8 09-29-2017 Episodic Other non-traumatic joint disorders (20 sources) Pain in right hip joint; Translations: [Hip pain, right] 07-15-2021 Episodic Other non-traumatic joint disorders (9 sources) Impingement syndrome of ankle; Translations: [Other specified joint disorders, right ankle and foot] 08-29-2022 Episodic Other non-traumatic joint disorders (9 sources) Instability of joint of right ankle; Translations: [Other instability, right ankle] 08-29-2022 Episodic Other non-traumatic joint disorders (3 sources) Other specified joint disorders, right ankle and foot; Translations: [Other enthesopathy of ankle and tarsus] Episodic Other non-traumatic joint disorders (3 sources) Other instability, right ankle; Translations: [Other joint derangement, not elsewhere classified, ankle and foot] Episodic Other non-traumatic joint disorders (7 sources) Pain in left knee; Translations: [Mechanical pain of left knee] 03-04-2023 Episodic Other nutritional; endocrine; and metabolic disorders (20 sources) Body mass index 30+ - obesity; Translations: [BMI 37.0-37.9, adult] Resolved: 3 09-29-2017 Chronic Other nutritional; endocrine; and metabolic disorders (20 sources) Obesity, unspecified; Translations: [Obesity] Chronic Other nutritional; endocrine; and metabolic disorders (20 sources) Body mass index 40+ - severely obese; Translations: [BMI 40.0-44.9, adult] 08-09-2018 Chronic Other nutritional; endocrine; and metabolic disorders (20 sources) Obesity; Translations: [Obesity] Resolved: 3 08-09-2018 Chronic Comment on above: she is having slow w eight loss. not drinking sugar drinks. Other nutritional; endocrine; and metabolic disorders (10 sources) Weight gain; Translations: [Weight gain] 05-13-2023 Episodic Other screening for suspected conditions (not mental disorders or infectious disease) (20 sources) Blood chemistry abnormal; Translations: [Breast neoplasm screening status] Onset: 5 Resolved: 3 08-06-2015 Episodic Other skin disorders (20 sources) Subcutaneous nodule; Translations: [Subcutaneous nodule] Resolved: 6 02-01-2016 Episodic Comment on above: ? erythema nordosum. check labs will bipsy Other skin disorders (20 sources) Eruption; Translations: [Rash] Resolved: 4 09-29-2013 Episodic Comment on above: on left [place] area ? erthyma nodosum ? start chronic stasis dermatitis. get back water pill. use compression stocking Other skin disorders (6 sources) Ingrowing nail; Translations: [Ingrowing nail] 08-29-2022 Episodic Other skin disorders (3 sources) Ingrowing nail; Translations: [Ingrowing nail] Episodic Other upper respiratory disease (20 sources) Allergic rhinitis due to animal dander; Translations: [Allergic rhinitis due to animal dander] Resolved: 7 07-03-2017 Chronic Comment on above: sees Arleen for al lergiesgets immunotherapy and zolair injections plus xyzal Other upper respiratory infections (20 sources) Acute pharyngitis; Translations: [Viral upper respiratory tract infection] Resolved: 8 06-19-2015 Episodic Comment on above: ? pneumonia Phlebitis; thrombophlebitis and thromboembolism (20 sources) Thrombophlebitis; Translations: [Thrombophlebitis] Resolved: 6 02-01-2016 Episodic Pneumonia (except that caused by tuberculosis or sexually transmitted disease) (20 sources) Pneumonia; Translations: [Pneumonia] Resolved: 9 07-18-2019 Episodic Comment on above: 06-27-19 had pneumon ia, chest xray on levaquin Pulmonary heart disease (1 source) Pulmonary hypertension; Translations: [Other secondary pulmonary hypertension] Onset: 1 11-29-2010 Chronic Residual codes; unclassified (20 sources) Needs influenza immunization; Translations: [Need for prophylactic vaccination and inoculation against influenza (Renamed from Need for immunization against influenza)] Resolved: 6 02-01-2016 Episodic Residual codes; unclassified (20 sources) Edema; Translations: [Edema] Resolved: 4 09-29-2013 Episodic Residual codes; unclassified (20 sources) Influenza-like symptoms; Translations: [Flu-like symptoms] Resolved: 9 06-27-2019 Episodic Residual codes; unclassified (20 sources) Current non-smoker ; Translations: [Current nonsmoker (Renamed from Current non-smoker)] 02-01-2016 Episodic Residual codes; unclassified (20 sources) Non-smoker; Translations: [Nonsmoker] 07-15-2021 Episodic Residual codes; unclassified (6 sources) Postmenopausal state; Translations: [Post-menopausal] 06-26-2023 Episodic Residual codes; unclassified (6 sources) Viral syndrome; Translations: [Flu-like symptoms] Resolved: 9 11-08-2019 Episodic Skin and subcutaneous tissue infections (20 sources) Cellulitis and abscess of lower limb; Translations: [Cellulitis and abscess of leg] Resolved: 4 08-24-2015 Episodic Comment on above: vs erythema nodosum Spondylosis; intervertebral disc disorders; other back problems (20 sources) Sciatica; Translations: [Low back pain] Onset: 7 Resolved: 8 06-22-2017 Episodic Comment on above: left side--? muscula r check kidney--not beter fw weeks or worse--xray Unclassified (20 sources) Allergic rhinitis due to animal dander Unclassified (20 sources) Current non-smoker ; Translations: [Current nonsmoker (Renamed from Current non-smoker)] 02-01-2016 Unclassified (20 sources) Patient encounter status; Translations: [Encounter for screening for lipid disorder] 08-09-2018 Unclassified (20 sources) Unclassified (20 sources) Allergic to food (Renamed from Food allergy) Unclassified (20 sources) Well Female (Younger Female) (V72.31) Unclassified (20 sources) Non-smoker; Translations: [Nonsmoker] 08-09-2018 Unclassified (20 sources) Stress reaction Unclassified (20 sources) Allergic rhinitis due to animal (cat) (dog) hair and dander (477.2) Unclassified (20 sources) Stress Reaction (308.4) Unclassified (20 sources) BMI 39.0-39.9,adult Unclassified (20 sources) Recurrent cold sores Unclassified (20 sources) Encounter for screening mammogram for breast cancer (Renamed from Encounter for screening mammogram for malignant neoplasm of breast) Unclassified (20 sources) Palpitation Unclassified (20 sources) BMI 40.0-44.9, adult Unclassified (20 sources) Breast cancer screening Unclassified (3 sources) Pharyngitis, acute Varicose veins of lower extremity (7 sources) Varicose veins of lower extremity; Translations: [Varicose veins of bilateral lower extremities with other complications] 11-10-2023 Episodic Viral infection (20 sources) Herpesviral vesicular dermatitis; Translations: [Verruca vulgaris] Resolved: 8 09-29-2017 Episodic Comment on above: will give course mari trex to shut dowen then can do the prn valtrex at first oncet third digit right [place] Past or Other Problems Problem Classification Problem Date Documented Date Episodic/Chronic Administrative/socia l admission (20 sources) Medical examinations/reports status; Translations: [Well female exam with routine gynecological exam] Resolved: 02-16-2014 07-31-2015 Episodic Comment on above: will be due next chemo [id number] Contraceptive and procreative management (20 sources) Intrauterine contraceptive device in situ; Translations: [Encounter for routine checking of intrauterine contraceptive device] Onset: 04-05-2012 04-05-2012 Episodic Diabetes mellitus without complication (20 sources) Impaired fasting glucose; Translations: [Impaired fasting glycaemia] Onset: 12-12-2024 Resolved: 05-04-2023 08-09-2018 Episodic Comment on above: last glucose 83 was drinking starb[place] ks was drinking starbuc ks, A1c 5.5 Joint disorders and dislocations; trauma-related (2 sources) Tear of lateral meniscus of knee; Translations: [Other tear of lateral meniscus, current injury, left knee] Resolved: 03-26-2013 03-10-2013 Episodic Other non-traumatic joint disorders (1 source) Knee pain; Translations: [Pain in left knee] 03-10-2013 Episodic Other non-traumatic joint disorders (19 sources) Chronic ankle pain; Translations: [Pain in right ankle and joints of right foot] Onset: 04-30-2016 04-30-2016 Episodic Other upper respiratory disease (20 sources) Nasal discharge; Translations: [Post-nasal drainage] Resolved: 09-29-2017 09-29-2017 Episodic Residual codes; unclassified (20 sources) Edema, unspecified; Translations: [Swelling - edema - symptom] Resolved: 09-29-2013 09-29-2013 Episodic Sprains and strains (1 source) Strain of muscle, fascia and tendon of lower back, initial encounter; Translations: [Strain of muscle, fascia and tendon of lower back, initial encounter] Onset: 06-22-2017 06-22-2017 Episodic Unclassified (20 sources) BMI 37.0-37.9, adult Unclassified (20 sources) Deliveries (Parity); Translations: [Deliveries (Parity)] 08-09-2018 Comment on above: 2 Unclassified (20 sources) Ankle/Foot Pain (719.47) Unclassified (20 sources) Pregnancies (); Translations: [Pregnancies ()] 08-09-2018 Comment on above: 2 Unclassified (20 sources) Unspecified Diagnosis Resolved: 07-16-2015 08-09-2018 Unclassified (20 sources) Rash (782.1) Unclassified (20 sources) SINUSITIS, ACUTE NOS (461.9) Unclassified (20 sources) SYMPTOM, POLYURIA (788.42) Unclassified (20 sources) Pre-operative examination, unspecified (V72.84) Unclassified (20 sources) Limb pain (729.5) Unclassified (20 sources) Warts (078.10) Unclassified (20 sources) CELLULITIS/ABSCESS, LEG (682.6) Unclassified (20 sources) Thrombophlebitis NOS (451.9) Unclassified (20 sources) ABNORMAL BLOOD CHEMISTRY NEC (790.6) Unclassified (20 sources) Preprocedural examination done; Translations: [Pre-operative examination] Resolved: 04-29-2010 06-19-2015 Comment on above: clear after see labs Unclassified (20 sources) Low grade fever Unclassified (20 sources) Upper respiratory virus Unclassified (20 sources) Post-nasal drainage Unclassified (20 sources) Acute pain of left hip Unclassified (20 sources) Sciatic leg pain Unclassified (17 sources) Flu-like symptoms Unclassified (17 sources) Abnormal lung sounds Unclassified (17 sources) Upper respiratory infection, acute Results Test Name Value Interpretation Reference Range Facility Relevant diagnostic tests/la boratory data Narrativeon 07-19-2025 EMG HX of the Right Upper Extremity on 07/18/2025 at [employer] Work Phone: Fall risk assessment no [employer] Work Phone: MEDS REVIEW Documentation of current medications (procedure) [employer] Work Phone: MEDS REVIEWD Medications reviewed with [employer] Work Phone: Relevant diagnostic tests/la boratory data Narrativeon 06-28-2025 Fall risk assessment no [employer] Work Phone: MEDS REVIEW Done [employer] Work Phone: MEDS REVIEWD Medications reviewed with [employer] Work Phone: Ferritinon 06-14-2025 Ferritin [Mass/Vol] 216 ng/mL Normal 22-378 [facility] Comment on above: Performed By: #### L 503.6030, L503.6550, L506.1001 #### [facility] [address] [place], [address] Iron+Iron Binding Capacityon 06-14-2025 Iron [Mass/Vol] 62 ug/dL Normal 50-[address] [facility] Comment on above: Performed By: #### L 503.6030, L503.6550, L506.1001 #### [facility] [address] [place], [address] IRON SATURATION 19.1 Normal 13-[address] [facility] Comment on above: Performed By: #### L 503.6030, L503.6550, L506.1001 #### [facility] [address] [place], [address] TIBC 323 ug/dL Normal 250-[address] [facility] Comment on above: Performed By: #### L 503.6030, L503.6550, L506.1001 #### [facility] [address] [place], [place], [address] UIBC 261 ug/dL Normal 228-[address] [facility] Comment on above: Performed By: #### L 503.6030, L503.6550, L506.1001 #### [facility] [address] [place], [address] Vitamin D,25 Hydroxyon 06-14 Vitamin D 25-OH 42.0 ng/mL Normal 30-[address] [facility] Comment on above: Result Comment: Ernestina min D Status Deficiency: <20 ng/mL (50nmol/L) Insufficiency: 20-30 ng/mL (50-75 nmol/L) Sufficiency: 30-100 ng/mL (75-250 nmol/L) Toxicity: >100 ng/mL (>250 nmol/L) Performed By: #### L 503.6030, [id number], L506.1001 #### [facility] [address] [place], [place], [address] Breast imaging reportOrdered By: Agnieszka Duron on 04-05-2025 Study report [facility] Imaging Services [address] [place], [place] [address] SCRN MAMM (CAD)W/STEFANIA BILAT MR#: [id number] Acct: [id number] Name: ONEAL ZABALA Rep #: [id number] : 1970 F 54 From: Elo Duron MD PCP: YENY Mosley Status: REG Ji AUGUSTIN Study:SCRN MAMM (CAD)W/STEFANIA BILAT Date of Exa m: 04/05/25 Exam# [id number] Ordering Dr: Ji Ivey EXAM: SCRN MAMM (CAD)W/STEFANIA BILAT DATE: 04/05/2025 CLINICAL HISTORY: F, Age 54 y/o , SCREENING TECHNIQUE: SCRN MAMM (CAD)W/STEFANIA BILAT COMPARISON: Prior exam(s) dated 04/04/2024, 02/26/2023, 10/16/2021. FINDINGS: TISSUE DENSITY: There are scattered areas of fibroglandular density. Bilateral Breast Mammographic Findings: No significant masses, calcifications or other abnormalities are identified. BI/SCRN MAMM (CAD)W/STEFANIA BILAT IMPRESSION: There is no mammographic evidence of malignancy. OVERALL FINAL ASSESSMENT BI-RADS 1: NEGATIVE. RECOMMENDATION: Routine annual follow-up in 1 Year A letter with findings and recommendations will be mailed to the patient. Reading Location: [id number] CC: YENY Ivey ~ Sr. Manager Marketing: Signed [facility] SCRN MAMM (CAD)W/STEFANIA BILATo n 04-05-2025 SCRN MAMM (CAD)W/STEFANIA BILAT [facility] Imaging Services [address] [place] [id number] SCRN MAMM (CAD)W/STEFANIA BILAT MR#: [id number] Acct: [id number] Name: ONEAL ZABALA Rep #: [id number] : 1970 F 54 From: Agnieszka Duron MD PCP: YENY Mosley Status: [facility] Study: SCRN MAMM (CAD)W/STEFANIA BILAT Date of Exam: 03/15 12/06 Exam# [id number] Ordering Dr: Zahraa Ivey EXAM: SCRN MAMM (CAD)W/STEFANIA BILAT DATE: 04/05/2025 CLINICAL HISTORY: F, Age 54 y/o , SCREENING TECHNIQUE: SCRN MAMM (CAD)W/STEFANIA BILAT COMPARISON: Prior exam(s) dated 04/04/2024, 02/26/2023, 10/16/2021. FINDINGS: TISSUE DENSITY: There are scattered areas of fibroglandular density. Bilateral Breast Mammographic Findings: No significant masses, calcifications or other abnormalities are identified. BI/SCRN MAMM (CAD)W/STEFANIA BILAT IMPRESSION: There is no mammographic evidence of malignancy. OVERALL FINAL ASSESSMENT BI-RADS 1: NEGATIVE. RECOMMENDATION: Routine annual follow-up in 1 Year A letter with findings and recommendations will be mailed to the patient. Reading Location: [id number] CC: YENY Ivey Sr. Manager Marketing: Signed [facility] CNOVon 02-28-2025 CNOV Office Visit (OBGYWM ) ONEAL ZABALA ([id number]) 1970 F Date Time Provider Department 02/28/25 2:00 PM STEPHY PERALES OBGYWM During your visit today, we recorded the following information about you: Blood pressure Weight Height 132/78 112.9 kg 1.613 m Stephy Perales MD 02/28/2025 2:37 PM Jessika Medina presents for removal of IUD due to expiration of IUD. UNIVERSAL PROTOCOL / SAFETY CHECKLIST Procedure to be Performed: IUD removal Sign In: A Moment of CARE was completed. Appropriate PPE (Personal Protective Equipment) worn by all providers involved with the procedure. Special equipment not required. Patient/Surrogate Stated/Verified: Patient name, Date of , Relevant allergies, and The intended procedure Time Out: Relevant labs, photos, and/or imaging studies have been reviewed. Intended patient and procedure match the source document(s) (e.g. consent, HANDP, associated studies [imaging, pathology]) are not applicable. Consent obtained and matches the intended procedure. Yes. Correct side/site is not applicable. Medications required for this procedure are not applicable. Fire risk assessed and is not applicable. Implants: are not applicable. Sign Out: Specimens are all correctly labeled and sent. All instruments, equipment, possible retained foreign bodies are accounted for. Yes. The post-procedure plan of care has been communicated to the patient or surrogate. PROCEDURE: Speculum placed in vagina, IUD string visualized and grasped with ring forceps. ASSESSMENT/PLAN: IUD removed without difficulty, intact, and patient tolerated procedure well. Contraception plans: none Stephy Perales MD Oneal is a 54 year old who presents for an annual gynecologic exam without complaints. Denies hot flashes. Had hormone levels drawn last year. No vaginal bleeding. Some wt gain. her goal is to get healthier this year/summer in preparation for daughter's wedding next year Postmenopausal: yes HRT use: No. 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 PAST MEDICAL HISTORY Diagnosis Date Asthma ([facility]) IUD 01/2007 mirena Mitral prolapse SVT (supraventricular tachycardia) ([facility]) PAST SURGICAL HISTORY Procedure Laterality Date ARTHROSCOPY,ANKLE; W/ANKLE ARTHRODESIS EVLT,ENDOVENOUS LASER TRT Right 02/19/2024 [facility] EVLT,ENDOVENOUS LASER TRT Left 02/12/2024 [facility] FAMILY HISTORY Problem Relation Age of Onset Diabetes Mother Heart Mother Hypertension Father GI Father Gurd/ acid reflux Hypertension Sister Diabetes Sister Hypertension Brother Diabetes Brother SOCIAL HISTORY Social History Tobacco Use Smoking status: Never Smokeless tobacco: Never Vaping Use Vaping status: Never Used Substance Use Topics Alcohol use: No Drug use: No REVIEW OF SYSTEMS Abdomen: No abdominal pain, nausea, vomiting, diarrhea, or constipation. No bloating, early satiety, indigestion, or increased flatulence. Bladder: No dysuria, gross hematuria, urinary frequency, urinary urgency, or incontinence Breast: No breast lumps, nipple d/c, overlying skin changes, redness or skin retraction Allergies and current medication updated:Yes SENSITIVE EXAM: The sensitive examination was discussed with the Patient or Patient's Authorized Records Section Supervisor. As applicable, any other physician, advance practice provider, medical student, or other health professional student that will be observing or involved in the sensitive examination for educational or training purposes was discussed with the Patient or Authorized Records Section Supervisor. The Patient or Authorized Records Section Supervisor has agreed to proceed with the sensitive examination. (Sensitive examination includes inspection and/or palpation of the breasts, pelvis, prostate and anorectal regions). EXAM: BP 132/78 Ht 5' 3.5 (1.61m) Wt 249 lb (112.9kg) BMI 43.41 kg/(m2). GENERAL: pleasant, female in no apparent distress HEENT: Normocephalic, atraumatic, mucus membranes moist, and no lesions NECK: Supple, full range of motion, no adenopathy, and thyroid normal DERMATOLOGY: Normal, without lesions, non-icteric, and non-hirsute BREAST: soft, non-tender, symmetric, no dominant mass, normal nipple-areolar complex, no lymphadenopathy, and no nipple discharge CHEST: Normal inspiratory effort ABDOMEN: soft, non-tender, and no masses PELVIC: external genitalia normal, normal Bartholin's glands, urethra, Burnet's glands, no vulvar lesions, no cervical lesions, good vaginal support, physiologic discharge present, normal appearing perineal body and perianal region BIMANUAL: uterus normal size, shape (more content not included)... Normal [facility] HIGH RISK HUMAN PAPILLOMA NARESH (HPV), PCR FOR DETECTION AND GENOTYPINGon 02-28-2025 HPV 16 Ag Ql (Unsp spec) Not detected Normal Not detected [facility] Comment on above: Order Comment: Speci men Type: FLUID SPECIMENOrdering Facility: [facility] Address: [address] [place] [address] Performed By: #### H PVHRT ####[facility] [id number] [place] [address] [place] HPV 18 Ag Ql (Unsp spec) Not detected Normal Not detected [facility] Comment on above: Order Comment: Speci men Type: FLUID SPECIMENOrdering Facility: [facility] Address: [address] [place] [address] Performed By: #### H PVHRT ####[facility] [id number] [place] [address] [place] HPV 31+33+35+39+45+51+52+56 +58+59+66+68 DNA CORRIE+probe Ql (Cvx) Not detected Normal Not detected [facility] Comment on above: Order Comment: Speci men Type: FLUID SPECIMENOrdering Facility: [facility] Address: [address] [place] [address] Result Comment: High Risk HPV Other Type includes HPV types 31, 33, 35, 39, 45, 51, 52, 56, 58, 59, 66 and 68. Performed By: #### H PVHRT ####[facility] LABCLIA [id number] [address] PAP TESTon 02-28-2025 ADEQUACY Normal [facility] Comment on above: Order Comment: Speci men Type: FLUID SPECIMENOrdering Facility: [facility] Address: [address] [place] [address] Result Comment: Sati sfactory for interpretation. Transformation zone present Performed By: #### L [id number] ####[facility] [id number] [address] LABCLIA [id number] [address] [place] CASE REPORT Normal [facility] Comment on above: Order Comment: Speci men Type: FLUID SPECIMENOrdering Facility: [facility] Address: [address] [place] [address] Result Comment: Gyne cologic Cytology Report Case: [id number] Authorizing Provider: Stephy Perales MD Collected: 02/28/2025 02:33 PM Ordering Location: OB/Gynecology Received: 03/01/2025 08:18 AM First Screen: Roxane Alcaraz, CT, ASCP Specimen: Pap Test, ThinPrep, Cervix Performed By: #### L [id number] ####[facility] [id number] [address] LABCLIA [id number] [place] [address] [place] CLINICAL HISTORY, CYTOLOGY, AGILE DEVELOPER Post Menopausal Normal [facility] Comment on above: Order Comment: Speci men Type: FLUID SPECIMENOrdering Facility: [facility] Address: [address] [place] [address] Performed By: #### L [id number] ####[facility] [id number] [address] [place] [facility] LABCLIA [id number] [place] [address] [place] FINAL PERFORMING LAB Normal [facility] Comment on above: Order Comment: Speci men Type: FLUID SPECIMENOrdering Facility: [facility] Address: [address] [place] [address] Result Comment: Tech nical component, exterminator helper termite screening performed at: [facility], [address] [place] [address] CLIA: [id number] Diagnostic interpretation performed at: [facility], [address] [place] [address] CLIA# [id number] Talent Development Manager: Halima Hines MD Performed By: #### L [id number] ####[facility] LABORATORYCLIA [id number] [address] LABCLIA [id number] [place] [address] [place] INTERPRETATION, CYTOLOGY, AGILE DEVELOPER Normal [facility] Comment on above: Order Comment: Speci men Type: FLUID SPECIMENOrdering Facility: [facility] Address: [address] [place] [address] Result Comment: Nega tive for intraepithelial lesion or malignancy. at 1346 EDT Performed By: #### L [id number] ####[facility]ORYCLIA [id number] [address] LABCLIA [id number] [place] [address] [place] PAP DISCLAIMER COMMENT The Pap Smear is a screening test for cervical cancer. False negative results occur with all screening tests, emphasizing the need for rescreening at recommended intervals, and clinical correlation. Normal [facility] Comment on above: Order Comment: Speci men Type: FLUID SPECIMENOrdering Facility: [facility] Address: [address] [place] [address] Performed By: #### L [id number] ####[facility] [id number] [address] LABIA [id number] [address] PAP EQUITY SALES ASSISTANT COMMENT This specimen has be en analyzed by the FDA-approved VysrTM System, which uses digital imaging and an enhanced artificial intelligence image analysis algorithm to identify osborn of interest on the microscopic slide, to assist the offender employment specialist and pathologist in evaluating cells on ThinPrep Pap tests. Following analysis, osborn of interest on the microscopic slide selected by the algorithm are reviewed by a offender employment specialist. If a sample requires hierarchical review, the pathologist will review the same osborn of interest selected by the algorithm prior to final interpretation. [facility] Comment on above: Order Comment: Speci men Type: FLUID SPECIMENOrdering Facility: [facility] Address: [address] [place] [address] Performed By: #### L [id number] ####[facility] [id number] [address] LABIA [id number] [address] [place] CNOVon 01-24-2025 CNOV Office Visit (VASSWS ) ONEAL ZABALA ([id number]) 1970 F Date Time Provider Department 01/24/25 9:00 AM TOSHIA HUSTON VASSWS During your visit today, we recorded the following information about you: Pulse Blood pressure 77/minute 105/66 Toshia Huston, 01/24/2025 10:02 AM Signed [facility] DEPARTMENT OF VASCULAR SURGERY OUTPATIENT VISIT DATE January 24, 2025 OUTPATIENT VISIT TYPE ESTABLISHED SERVICE DATE: 01/24/2025 SERVICE TIME: 9:08 AM PRIMARY CARE PHYSICIAN: Jignesh Gibson MD HISTORY OF PRESENT ILLNESS: Ms. Zabala is a 54 year old female who presents today for a vascular surgery follow-up visit for secondary lymphedema and venous insufficiency. She is using her compression pumps and wearing compression as tolerated. Notice her leg pain is slightly improved however edema persists. Denies ulceration PAST MEDICAL HISTORY Diagnosis Date Asthma IUD 01/2007 mirena Mitral prolapse SVT (supraventricular tachycardia) ([facility]) PAST SURGICAL HISTORY Procedure Laterality Date ARTHROSCOPY,ANKLE; W/ANKLE ARTHRODESIS EVLT,ENDOVENOUS LASER TRT Right 02/19/2024 [facility]SV EVLT,ENDOVENOUS LASER TRT Left 02/12/2024 [facility] SOCIAL HISTORY Social History Tobacco Use Smoking status: Never Smokeless tobacco: Never Substance Use Topics Alcohol use: No Drug use: No MEDICATIONS: metFORMIN (GLUCOPHAGE) 500 mg tablet Prasterone, DHEA, (DHEA) 25 mg cap loratadine (CLARITIN) 10 mg tablet Take 1 tablet by mouth every afternoon. fluticasone-vilanterol (BREO ELLIPTA) 200-25 mcg/dose inhaler Inhale 1 Inhalation as instructed once daily. benralizumab (FASENRA) 30 mg/mL injection Inject 1 mL subcutaneously every 4 weeks. levonorgestrel (MIRENA) 20 mcg/24 hr (5 years) IUD Inserted in office ergocalciferol, vitamin D2, (DRISDOL) 50,000 unit capsule montelukast (SINGULAIR) 10 mg tablet ALBUTEROL SULFATE (PROVENTIL INHALATION) Inhale as instructed. ALLERGIES: ALLERGIES Allergen Reactions Penicillins Unknown PHYSICAL EXAM: There were no vitals taken for this visit. Gen- no distress Ext- right medial calf hyperpigmentation, spider veins, bilateral lower extremity edema Diagnostic tests reviewed for today's visit: Most recent labs Most recent imaging IMPRESSION: Ms. Zabala is a 54 year old female with venous insufficiency, secondary lymphedema . PLAN and RECOMMENDATIONS: Continue compression, elevation and exercise New prescription for knee high compression provided Follow up in 6 months or sooner with any concerns SIGNATURE: Toshia Huston DO PATIENT NAME: Oneal Zabala DATE: January 24, 2025 TIME: 9:08 AM Referring Provider: TOSHIA HUSTON [[id number]] Allergies As of Date: 01/24/2025 Noted Allergy Reaction PENICILLINS 08/08/2011 16 - Unknown Date Reviewed: 01/24/2025 Reviewed by: Radha Bailey OCCA - Fully Assessed Reason for Visit: Established Patient [175] Primary Visit Diagnosis:Venous (peripheral) insufficiency [I87.2] Other Visit Diagnosis:Secondary lymphedema [I89.0] Order(s):COMPRESSION STOCKINGS [2091792] Order #: [id number] Prescriptions as of 01/24/2025 - metFORMIN (GLUCOPHAGE) 500 mg tablet - Prasterone, DHEA, (DHEA) 25 mg cap - loratadine (CLARITIN) 10 mg tablet Take 1 tablet by mouth every afternoon. - fluticasone-vilanterol (BREO ELLIPTA) 200-25 mcg/dose inhaler Inhale 1 Inhalation as instructed once daily. - benralizumab (FASENRA) 30 mg/mL injection Inject 1 mL subcutaneously every 4 weeks. - levonorgestrel (MIRENA) 20 mcg/24 hr (5 years) IUD Inserted in office - ergocalciferol, vitamin D2, (DRISDOL) 50,000 unit capsule - montelukast (SINGULAIR) 10 mg tablet - ALBUTEROL SULFATE (PROVENTIL INHALATION) Inhale as instructed. Problem List As Of Date 01/24/2025 Noted Resolved IUD check up [Z30.431] 04/05/2012 Chronic pain of right ankle [M25.571, G89.29] 04/30/2016 Disposition: Return in about 6 months (around 07/27/2025). Follow-up and Disposition History for Encounter Date Provider Department Center 01/24/2025 [id number] HUSTON Encounter Status:Closed by TOSHIA HUSTON on 01/24/25 [facility] Absolute neutrophil countOrd ered By: Zahraa Ivey on 12-07-2024 Neutrophils (Bld) [#/Vol] 3.6 10*3/uL 2.0-7.[address] [facility] Albumin DL <= 20 mg/L (U) [M ass/Vol]Ordered By: Zahraa Ivey on 12-07-2024 Urine Random Microalbumin < 12.0 mg/L NO RANGE EST. [facility] Anion gap in Serum or Plasma Ordered By: Zahraa Ivey on 12-07-2024 Anion gap [Moles/Vol] 9 mmol/L 5-15 [facility] BUN/creatinine ratioOrdered By: Zahraa Ivey on 12-07-2024 Urea nitrogen/Creatinine [Mass ratio] 18.5 mg/mg 10-[address] [facility] Basophil percentageOrdered B y: Zahraa Ivey on 12-07-2024 Basophils/100 WBC (Bld) 0.2 % 0-1 [facility] Bilirubin Test strip Ql (U)O rdered By: Zahraa Ivey on 12-07-2024 Bilirubin Ql (U) Negative Negative [facility] Bilirubin, totalOrdered By: Zahraa Ivey on 12-07-2024 Bilirubin [Mass/Vol] 0.54 mg/dL 0.00-1.30 [facility] CBC W/Diff, Automatedon 11-13 Absolute Lymph 1.68 X10 3/uL Normal 0.83-4.[address] [facility] Comment on above: Performed By: #### L 501.6710, L500.4100, L506.1001, L400.0001, L501.9985, L502.0250, L100.0100, L500.4050 #### [facility] [address] [place], [address] Absolute Neut 3.6 X10 3/uL Normal 2.0-7.[address] [facility] Comment on above: Performed By: #### L 501.6710, L500.4100, L506.1001, L400.0001, L501.9985, L502.0250, L100.0100, L500.4050 #### [facility] [address] [place], [address] Basophils/100 WBC (Bld) 0.2 % Normal 0-1 [facility] Comment on above: Performed By: #### L 501.6710, L500.4100, L506.1001, L400.0001, L501.9985, L502.0250, L100.0100, L500.4050 #### [facility] [address] [place], [address] Eosinophils/100 WBC (Bld) 0.0 % Normal 0-[address] [facility] Comment on above: Performed By: #### L 501.6710, L500.4100, L506.1001, L400.0001, L501.9985, L502.0250, L100.0100, L500.4050 #### [facility] [address] [facility] [place], [address] Erythrocyte distribution width (RBC) [Ratio] 12.7 % Normal 11.6-14.[address] [facility] Comment on above: Performed By: #### L 501.6710, L500.4100, L506.1001, L400.0001, L501.9985, L502.0250, L100.0100, L500.4050 #### [facility] [address] [facility] [place], [address] Hematocrit (Bld) [Volume fraction] 40.3 % Normal 37-[address] [facility] Comment on above: Performed By: #### L 501.6710, L500.4100, L506.1001, L400.0001, L501.9985, L502.0250, L100.0100, L500.4050 #### [facility] [address] [place], [address] Hemoglobin (Bld) [Mass/Vol] 13.6 g/dL Normal 12.0-15.[address] [facility] Comment on above: Performed By: #### L 501.6710, L500.4100, L506.1001, L400.0001, L501.9985, L502.0250, L100.0100, L500.4050 #### [facility] [address] [place], [address] IG% 0.300 Normal 0.0-0.[address] [facility] Comment on above: Result Comment: IG% - Immature Granulocytes (promyelocytes, myelocytes and metamyelocytes) > 1% indicates that a LEFT SHIFT is Present. Performed By: #### L 501.6710, L500.4100, L506.1001, L400.0001, L501.9985, L502.0250, L100.0100, L500.4050 #### [facility] [address] [place], [address] Lymphocytes/100 WBC (Bld) 28.3 % Normal 19-[address] [facility] Comment on above: Performed By: #### L 501.6710, L500.4100, L506.1001, L400.0001, L501.9985, L502.0250, L100.0100, L500.4050 #### [facility] [address] [place], [address] MCH (RBC) [Entitic mass] 30.8 pg Normal 27.0-32.[address] [facility] Comment on above: Performed By: #### L 501.6710, L500.4100, L506.1001, L400.0001, L501.9985, L502.0250, L100.0100, L500.4050 #### [facility] [address] [place], [address] MCHC (RBC) [Mass/Vol] 33.7 g/dL Normal 32-36 [facility] Comment on above: Performed By: #### L 501.6710, L500.4100, L506.1001, L400.0001, L501.9985, L502.0250, L100.0100, L500.4050 #### [facility] [address] [place], [address] MCV (RBC) [Entitic vol] 91.4 fL Normal 81-99 [facility] Comment on above: Performed By: #### L 501.6710, L500.4100, L506.1001, L400.0001, L501.9985, L502.0250, L100.0100, L500.4050 #### [facility] [address] [place], [address] Monocytes/100 WBC (Bld) 10.4 % High 0-10 [facility] Comment on above: Performed By: #### L 501.6710, L500.4100, L506.1001, L400.0001, L501.9985, L502.0250, L100.0100, L500.4050 #### [facility] [address] [place], [address] Neutrophils/100 WBC (Bld) 60.8 % Normal 47-[address] [facility] Comment on above: Performed By: #### L 501.6710, L500.4100, L506.1001, L400.0001, L501.9985, L502.0250, L100.0100, L500.4050 #### [facility] [address] [place], [address] Nucleated RBC (Bld) [#/Vol] 0 10*3/uL Normal 0-[address] [facility] Comment on above: Performed By: #### L 501.6710, L500.4100, L506.1001, L400.0001, L501.9985, L502.0250, L100.0100, L500.4050 #### [facility] [address] [place], [address] Platelet mean volume (Bld) [Entitic vol] 9.0 fL Normal 6.2-12.[address] [facility] Comment on above: Performed By: #### L 501.6710, L500.4100, L506.1001, L400.0001, L501.9985, L502.0250, L100.0100, L500.4050 #### [facility] [address] [place], [address] Platelets (Bld) [#/Vol] 233 10*3/uL Normal 150-[address] [facility] Comment on above: Performed By: #### L 501.6710, L500.4100, L506.1001, L400.0001, L501.9985, L502.0250, L100.0100, L500.4050 #### [facility] [address] [facility] [address] [place], [address] RBC (Bld) [#/Vol] 4.41 10*6/uL Normal 4.2-5.4 [facility] Comment on above: Performed By: #### L 501.6710, L500.4100, L506.1001, L400.0001, L501.9985, L502.0250, L100.0100, L500.4050 #### [facility] [address] [facility] [place], [address] RDW SD 42.5 fl Normal 35.1-43.[address] [facility] Comment on above: Performed By: #### L 501.6710, L500.4100, L506.1001, L400.0001, L501.9985, L502.0250, L100.0100, L500.4050 #### [facility] [address] [place], [address] WBC (Bld) [#/Vol] 5.9 10*3/uL Normal 4.4-11.0 [facility] Comment on above: Performed By: #### L 501.6710, L500.4100, L506.1001, L400.0001, L501.9985, L502.0250, L100.0100, L500.4050 #### [facility] [address] [place], [address] CRPon 12-07-2024 C-REACTIVE PROT 3.02 mg/L High 0.0-3.[address] [facility] Comment on above: Performed By: #### L 503.6030, L503.6550, L506.1001 #### [facility] [address] [place], [address] CRP [Mass/Vol]Ordered By: Shreya Ivey on 12-07-2024 C-Reactive Protein Extended Range 3.02 mg/L High 0.0-3.[address] [facility] Calculated very low density lipoprotein (VLDL) cholesterol measurementOrdered By: Zahraa Ivey on 12-07-2024 VLDL Cholesterol 12 mg/dL 5-[address] [facility] Carbon dioxide, total [Moles /volume] in Central venous bloodOrdered By: Zahraa Ivey on 12-07-2024 CO2 [Moles/Vol] 26.8 mmol/L 21.0-32.[address] [facility] Chloride assayOrdered By: Shreya Ivey on 12-07-2024 Chloride [Moles/Vol] 103 mmol/L 98-108 [facility] Comprehensive Metabolic Prof ilon 12-07-2024 Albumin [Mass/Vol] 4.3 g/dL Normal 3.5-5.0 [facility] Comment on above: Performed By: #### L 501.6710, L500.4100, L506.1001, L400.0001, L501.9985, L502.0250, L100.0100, L500.4050 #### [facility] [address] [place], [address] Albumin/Globulin [Mass ratio] 1.5 {ratio} Normal 0.9-2.[address] [facility] Comment on above: Performed By: #### L 501.6710, L500.4100, L506.1001, L400.0001, L501.9985, L502.0250, L100.0100, L500.4050 #### [facility] [address] [place], [address] ALK PHOS 98 U/L Normal 35-[address] [facility] Comment on above: Performed By: #### L 501.6710, L500.4100, L506.1001, L400.0001, L501.9985, L502.0250, L100.0100, L500.4050 #### [facility] [address] [place], [address] ALT [Catalytic activity/Vol] 18 U/L Normal <=[address] [facility] Comment on above: Performed By: #### L 501.6710, L500.4100, L506.1001, L400.0001, L501.9985, L502.0250, L100.0100, L500.4050 #### [facility] [address] [place], [address] AST [Catalytic activity/Vol] 18 U/L Normal <=[address] [facility] Comment on above: Performed By: #### L 501.6710, L500.4100, L506.1001, L400.0001, L501.9985, L502.0250, L100.0100, L500.4050 #### [facility] [address] [place], [address] Bilirubin [Mass/Vol] 0.54 mg/dL Normal 0.00-1.30 [facility] Comment on above: Performed By: #### L 501.6710, L500.4100, L506.1001, L400.0001, L501.9985, L502.0250, L100.0100, L500.4050 #### [facility] [address] [place], [address] BUN/CRE 18.5 RATIO Normal 10-[address] [facility] Comment on above: Performed By: #### L 501.6710, L500.4100, L506.1001, L400.0001, L501.9985, L502.0250, L100.0100, L500.4050 #### [facility] [address] [place], [address] Calcium [Mass/Vol] 9.3 mg/dL Normal 7.6-11.0 [facility] Comment on above: Performed By: #### L 501.6710, L500.4100, L506.1001, L400.0001, L501.9985, L502.0250, L100.0100, L500.4050 #### [facility] [address] [place], [address] Chloride [Moles/Vol] 103 mmol/L Normal 98-108 [facility] Comment on above: Performed By: #### L 501.6710, L500.4100, L506.1001, L400.0001, L501.9985, L502.0250, L100.0100, L500.4050 #### [facility] [address] [place], [address] CO2 [Moles/Vol] 26.8 mmol/L Normal 21.0-32.[address] [facility] Comment on above: Performed By: #### L 501.6710, L500.4100, L506.1001, L400.0001, L501.9985, L502.0250, L100.0100, L500.4050 #### [facility] [address] [place], [address] Creatinine [Mass/Vol] 0.77 mg/dL Normal 0.70-1.20 [facility] Comment on above: Performed By: #### L 501.6710, L500.4100, L506.1001, L400.0001, L501.9985, L502.0250, L100.0100, L500.4050 #### [facility] [address] [place], [address] GAP 9 Normal 5-[address] [facility] Comment on above: Performed By: #### L 501.6710, L500.4100, L506.1001, L400.0001, L501.9985, L502.0250, L100.0100, L500.4050 #### [facility] [address] [place], [address] GFR/1.73 sq M.predicted among non-blacks MDRD (S/P/Bld) [Vol rate/Area] 92 mL/min/{1.73_m2} Normal >[address] [facility] Comment on above: Result Comment: mL/m in/1.73m2 CKD-EPI Creatinine Equation (2020) Performed By: #### L 501.6710, L500.4100, L506.1001, L400.0001, L501.9985, L502.0250, L100.0100, L500.4050 #### [facility] [address] [place], [address] Globulin (S) [Mass/Vol] 2.8 g/dL Normal 2.2-4.2 [facility] Comment on above: Performed By: #### L 501.6710, L500.4100, L506.1001, L400.0001, L501.9985, L502.0250, L100.0100, L500.4050 #### [facility] [address] [place], [address] Glucose [Mass/Vol] 105 mg/dL High 70-99 [facility] Comment on above: Performed By: #### L 501.6710, L500.4100, L506.1001, L400.0001, L501.9985, L502.0250, L100.0100, L500.4050 #### [facility] [address] [place], [address] Potassium [Moles/Vol] 4.1 mmol/L Normal 3.3-5.1 [facility] Comment on above: Performed By: #### L 501.6710, L500.4100, L506.1001, L400.0001, L501.9985, L502.0250, L100.0100, L500.4050 #### [facility] [address] [place], [address] Sodium [Moles/Vol] 139 mmol/L Normal 133-145 [facility] Comment on above: Performed By: #### L 501.6710, L500.4100, L506.1001, L400.0001, L501.9985, L502.0250, L100.0100, L500.4050 #### [facility] [address] [place], [address] T PROT 7.2 g/dL Normal 5.9-8.[address] [facility] Comment on above: Performed By: #### L 501.6710, L500.4100, L506.1001, L400.0001, L501.9985, L502.0250, L100.0100, L500.4050 #### [facility] [address] [place], [address] Urea nitrogen [Mass/Vol] 14 mg/dL Normal 4-[address] [facility] Comment on above: Performed By: #### L 501.6710, L500.4100, L506.1001, L400.0001, L501.9985, L502.0250, L100.0100, L500.4050 #### [facility] [address] [place], [address] Creatinine Unsp time (U) [Ma ss/Vol]Ordered By: Zahraa Ivey on 12-07-2024 Creatinine (U) [Mass/Vol] 145.00 mg/dL 28.00-217. [address] [facility] Eosinophil percentageOrdered By: Zahraa Ivey on 12-07-2024 Eosinophils/100 WBC (Bld) 0.0 % 0-[address] [facility] Epithelial cells.squamous LM Ql (Urine sed)Ordered By: Zahraa Ivey on 12-07-2024 Epithelial cells.squamous LM.HPF (Urine sed) [#/Area] 5 /[HPF] 5-[address] [facility] Erythrocyte distribution wid th ratioOrdered By: Zahraa Ivey on 12-07-2024 Erythrocyte distribution width (RBC) [Ratio] 12.7 % 11.6-14.[address] [facility] Erythrocyte distribution wid th standard deviationOrdered By: Zahraa Ivey on 12-07-2024 Erythrocyte distribution width (RBC) [Entitic vol] 42.5 fL 35.1-43.[address] [facility] GFR/1.73 sq M.predicted santhosh g non-blacks MDRD (S/P/Bld) [Vol rate/Area]Ordered By: Zahraa Ivey on 12-07-2024 Estimated GFR (MDRD) Non-Af Amer 92 >[address] [facility] Comment on above: mL/min/1.73m2 CKD-EP I Creatinine Equation (2020) Glucose Ql (U)Ordered By: Shreya Ivey on 12-07-2024 Urine Glucose (UA) Normal mg/dl Normal [facility] Hematocrit Auto (Bld) [Volum e fraction]Ordered By: Zahraa Ivey on 12-07-2024 Hematocrit (Bld) [Volume fraction] 40.3 % 37-[address] [facility] Hemoglobin A1con 12-07-2024 HbA1c (Bld) [Mass fraction] 5.8 % Normal <=5.[address] [facility] Comment on above: Performed By: #### L 501.6710, L500.4100, L506.1001, L400.0001, L501.9985, L502.0250, L100.0100, L500.4050 #### [facility] [address] [place], [address] Hemoglobin A1c percentageOrd ered By: Zahraa Ivey on 12-07-2024 HbA1c (Bld) [Mass fraction] 5.8 % >5.[address] [facility] Hemoglobin measurementOrdere d By: Zahraa Ivey on 12-07-2024 Hemoglobin (Bld) [Mass/Vol] 13.6 g/dL 12.0-15.[address] [facility] Immature granulocytes/100 WB C Auto (Bld)Ordered By: Zahraa Ivey on 12-07-2024 Immature granulocytes/100 WBC (Bld) 0.300 % 0.0-0.[address] [facility] Comment on above: IG% - Immature Granu locytes (promyelocytes, myelocytes and metamyelocytes) > 1% indicates that a LEFT SHIFT is Present. Ketones Test strip Ql (U)Ord ered By: Zahraa Ivey on 12-07-2024 Ketones Ql (U) Negative Negative [facility] L506.1001on 12-07-2024 Vitamin D 25-OH 46.3 ng/mL Normal 30-[address] [facility] Comment on above: Result Comment: Ernestina min D Status Deficiency: <20 ng/mL (50nmol/L) Insufficiency: 20-30 ng/mL (50-75 nmol/L) Sufficiency: 30-100 ng/mL (75-250 nmol/L) Toxicity: >100 ng/mL (>250 nmol/L) Performed By: #### L 503.6030, L503.6550, L506.1001 #### [facility] [address] [place], [address] LDL calc ser/plasOrdered By: Zahraa Ivey on 12-07-2024 LDL Cholesterol, Calculated 113 mg/dL [facility] Comment on above: Ucdaggpmve=489-535 m g/dL & Higher Zavm=238 mg/dL or greater Laboratory - Chemistry and C hemistry - challengeOrdered By: Zahraa Ivey on 12-07-2024 AST [Catalytic activity/Vol] 18 U/L <[address] [facility] Lipid Profileon 12-07-2024 CHOL:HDL 2.[address] [facility] Comment on above: Performed By: #### L 503.6030, L503.6550, L506.1001 #### [facility] [address] [place], [address] Cholesterol [Mass/Vol] 194 mg/dL Normal <=200 [facility] Comment on above: Result Comment: Chol esterol level, Desirable <200 mg/dL Borderline high cholesterol 200-239 mg/dL High cholesterol >=240 mg/dL Recommendations of the NCEP Adult Treatment Panel for the following risk-cutoff thresholds for the [place] population. Performed By: #### L 503.6030, L503.6550, L506.1001 #### [facility] [address] [place], [address] Cholesterol in HDL [Mass/Vol] 70 mg/dL Normal [facility] Comment on above: Result Comment: Lovely onal Cholesterol Education Program (NCEP) guidelines: <40 mg/dL: Low HDL-cholesterol (major risk factor for CHD) >= 60 mg/dL: High HDL-cholesterol (negative risk factor for CHD) HDL-cholesterol is affected by a number of factors, e.g. smoking, exercise, hormones, sex and age. Performed By: #### L 503.6030, L503.6550, L506.1001 #### [facility] [address] [place], [address] Cholesterol in LDL [Mass/Vol] 113 mg/dL Normal [facility] Comment on above: Result Comment: Bord buefag=708-165 mg/dL Higher Uurd=183 mg/dL or greater Performed By: #### L 503.6030, L503.6550, L506.1001 #### [facility] [address] [place], [address] Cholesterol in VLDL [Mass/Vol] 12 mg/dL Normal 5-[address] [facility] Comment on above: Performed By: #### L 503.6030, L503.6550, L506.1001 #### [facility] [address] [place], [address] Triglyceride [Mass/Vol] 58 mg/dL Normal [facility] Comment on above: Result Comment: The drugs N-Acetylcysteine and Metamizole may falsely depress this assay. Normal range: <150 mg/dL Borderline High: 150-199 mg/dL High: 200-499 mg/dL Very High: >500 mg/dL Performed By: #### L 503.6030, L503.6550, L506.1001 #### [facility] [address] [place], [place], [id number] Lymphocytes Auto (Unsp spec) [#/Vol]Ordered By: Zahraa Ivey on 12-07-2024 Lymphocytes (Bld) [#/Vol] 1.68 10*3/uL 0.83-4.[address] [facility] Lymphocytes/100 WBC Auto (Un sp spec)Ordered By: Zahraa Ivey on 12-07-2024 Lymphocytes/100 WBC (Bld) 28.3 % 19-[address] [facility] MCV (mean corpuscular volume ) determinationOrdered By: Zahraa Ivey on 12-07-2024 MCV (RBC) [Entitic vol] 91.4 fL 81-99 [facility] Mean corpuscular hemoglobin (MCH) determinationOrdered By: Zahraa Ivey on 12-07-2024 MCH (RBC) [Entitic mass] 30.8 pg 27.0-32.[address] [facility] Mean corpuscular hemoglobin concentration (MCHC) determinationOrdered By: Zahraa Ivey on 12-07-2024 MCHC (RBC) [Mass/Vol] 33.7 g/dL 32-36 [facility] Mean platelet volume determi nationOrdered By: Zahraa Ivey on 12-07-2024 Platelet mean volume (Bld) [Entitic vol] 9.0 fL 6.2-12.[address] [facility] Microalb:Creat Ratio,Random URon 12-07-2024 Creatinine [Mass/Vol] 145.00 mg/dL Normal 28.00- 217. [address] [facility] Comment on above: Performed By: #### L 503.6030, L503.6550, L506.1001 #### [facility] [address] [place], [place], [id number] MALB:CREAT UNABLE TO CALCULATE Normal [facility] Comment on above: Performed By: #### L 503.6030, L503.6550, L506.1001 #### [facility] [address] [place], [address] MICROALBUMIN,UR < 12.0 Normal NO RANGE EST. [facility] Comment on above: Performed By: #### L 503.6030, L503.6550, L506.1001 #### [facility] [address] [place], [address] Microalbumin/creat ratio urO rdered By: Zahraa Ivey on 12-07-2024 Urine Microalbumin/Creatinine Ratio UNABLE TO CALCULATE mg/g CRE [facility] Microscopic analysis of urin e for red blood cells (RBC)Ordered By: Zahraa Ivey on 12-07-2024 Urine RBC 0 SEEN /hpf 0-[address] [facility] Monocyte percentageOrdered B y: Zahraa Ivey on 12-07-2024 Monocytes/100 WBC (Bld) 10.4 % High 0-10 [facility] Mucus LM Ql (Urine sed)Order ed By: Zahraa Ivey on 12-07-2024 Mucus Ql (Urine sed) 0 SEEN /hpf [facility] Neutrophil percentageOrdered By: Zahraa Ivey on 12-07-2024 Neutrophils/100 WBC (Bld) 60.8 % 47-[address] [facility] Nitrite Test strip Ql (U)Ord ered By: Zahraa Ivey on 12-07-2024 Nitrite Ql (U) Negative Negative [facility] Nucleated red blood cell per centageOrdered By: Zahraa Ivey on 12-07-2024 Nucleated RBC/100 WBC (Bld) [Ratio] 0 % 0-[address] [facility] Platelet countOrdered By: Shreya Ivey on 12-07-2024 Platelets (Bld) [#/Vol] 233 10*3/uL 150-[address] [facility] Potassium (Unsp spec) [Mass/ Vol]Ordered By: Zahraa Ivey on 12-07-2024 Potassium [Moles/Vol] 4.1 mmol/L 3.3-5.1 [facility] Protein Test strip Ql (U)Ord ered By: Zahraa Ivey on 12-07-2024 Protein Ql (U) 15 mg/dl High Negative [facility] RBC Auto (Bld) [#/Vol]Ordere d By: Zahraa Ivey on 12-07-2024 RBC (Bld) [#/Vol] 4.41 10*6/uL 4.2-5.4 [facility] Screening total cholesterol/ high density lipoprotein (HDL) cholesterol ratioOrdered By: Zahraa Ivey on 12-07-2024 Cholesterol.total/Marilee sterol in HDL [Mass ratio] 2.79 {ratio} [facility] Serum creatinine measurement (mass/volume)Ordered By: Zahraa Ivey on 12-07-2024 Creatinine [Mass/Vol] 0.77 mg/dL 0.70-1.20 [facility] Serum globulin measurementOr dered By: Zahraa Ivey on 12-07-2024 Globulin (S) [Mass/Vol] 2.8 g/dL 2.2-4.2 [facility] Serum glucose measurement (m ass/volume)Ordered By: Zahraa Ivey on 12-07-2024 Glucose [Mass/Vol] 105 mg/dL High 70-99 [facility] Serum or plasma alanine schafer otransferase (ALT) measurementOrdered By: Zahraa Ivey on 12-07-2024 ALT [Catalytic activity/Vol] 18 U/L <[address] [facility] Serum or plasma albumin peng urement (mass/volume)Ordered By: Zahraa Ivey on 12-07-2024 Albumin [Mass/Vol] 4.3 g/dL 3.5-5.0 [facility] Serum or plasma albumin/glob ulin mass ratioOrdered By: Zahraa Ivey on 12-07-2024 Albumin/Globulin [Mass ratio] 1.5 {ratio} 0.9-2.[address] [facility] Serum or plasma alkaline irene sphatase measurementOrdered By: Zahraa Ivey on 12-07-2024 ALP [Catalytic activity/Vol] 98 U/L 35-[address] [facility] Serum or plasma calcium peng urement (mass/volume)Ordered By: Zahraa Ivey on 12-07-2024 Calcium [Mass/Vol] 9.3 mg/dL 7.6-11.0 [facility] Serum or plasma cholesterol in HDL measurement (mass/volume)Ordered By: Zahraa Ivey on 12-07-2024 Cholesterol in HDL [Mass/Vol] 70 mg/dL >[address] [facility] Comment on above: National Cholesterol Education Program (NCEP) guidelines:<40 mg/dL: Low HDL-cholesterol (major risk factor for CHD)>= 60 mg/dL: High HDL-cholesterol (negative risk factor for CHD)HDL-cholesterol is affected by a number of factors, e.g. smoking, exercise, hormones, sex and age. Serum or plasma cholesterol measurement (mass/volume)Ordered By: Zahraa Ivey on 12-07-2024 Cholesterol [Mass/Vol] 194 mg/dL <201 [facility] Comment on above: Cholesterol level, D esirable <200 mg/dLBorderline high cholesterol 200-239 mg/dLHigh cholesterol >=240 mg/dLRecommendations of the NCEP Adult Treatment Panel for the following risk-cutoff thresholds for the [place] population. Serum or plasma urea nitroge n measurement (mass/volume)Ordered By: Zahraa Ivey on 12-07-2024 Urea nitrogen [Mass/Vol] 14 mg/dL 4-[address] [facility] Sodium levelOrdered By: Kavita Ivey on 12-07-2024 Sodium [Moles/Vol] 139 mmol/L 133-145 [facility] Total proteinOrdered By: Claude Ivey on 12-07-2024 Protein [Mass/Vol] 7.2 g/dL 5.9-8.4 [facility] Triglycerides measurementOrd ered By: Zahraa Ivey on 12-07-2024 Triglyceride [Mass/Vol] 58 mg/dL <199 [facility] Comment on above: The drugs N-Acetylcy steine and Metamizole may falsely depress this assay. Normal range: <150 mg/dLBorderline High: 150-199 mg/dLHigh: 200-499 mg/dLVery High: >500 mg/dL Urinalysis, Completeon 12-07 WBC 0-5 SEEN Normal 0-[address] [facility] Comment on above: Order Comment: Urine , Random Performed By: #### L 501.6710, L500.4100, L506.1001, L400.0001, L501.9985, L502.0250, L100.0100, L500.4050 #### [facility] [address] [place], [address] BACTERIA 1+ /hpf Normal None Seen [facility] Comment on above: Order Comment: Urine , Random Performed By: #### L 501.6710, L500.4100, L506.1001, L400.0001, L501.9985, L502.0250, L100.0100, L500.4050 #### [facility] [address] [place], [address] EPI,SQUAMOUS 5-10 SEEN Normal 5-[address] [facility] Comment on above: Order Comment: Urine , Random Performed By: #### L 501.6710, L500.4100, L506.1001, L400.0001, L501.9985, L502.0250, L100.0100, L500.4050 #### [facility] [address] [place], [address] RBC 0 SEEN Normal 0-[address] [facility] Comment on above: Order Comment: Urine , Random Performed By: #### L 501.6710, L500.4100, L506.1001, L400.0001, L501.9985, L502.0250, L100.0100, L500.4050 #### [facility] [address] [place], [address] Mucus Ql (Urine sed) 0 SEEN Normal [facility] Comment on above: Order Comment: Urine , Random Performed By: #### L 501.6710, L500.4100, L506.1001, L400.0001, L501.9985, L502.0250, L100.0100, L500.4050 #### [facility] [address] [place], [address] Urine blood detectionOrdered By: Zahraa Ivey on 12-07-2024 Urine Occult Blood Negative Negative [facility] Urine clarityOrdered By: Claude Ivey on 12-07-2024 Clarity (U) Sl. Cloudy Clear [facility] Urine color determinationOrd ered By: Zahraa Ivey on 12-07-2024 Color (U) Yellow Yellow [facility] Urine leukocyte esterase det ection by dipstickOrdered By: Zahraa Ivey on 12-07-2024 Leukocyte esterase Test strip Ql (U) 100 /ul High Negative [facility] Urine pHOrdered By: Zahraa Ivey on 12-07-2024 pH (U) 8.0 [pH] 5.0 - 8.[address] [facility] Urine sediment bacteria coun t by microscopy (number/high power field)Ordered By: Zahraa Ivey on 12-07-2024 Bacteria LM.HPF (Urine sed) [#/Area] 1 /[HPF] None Seen [facility] Urine specific gravity measu rementOrdered By: Zahraa Ivey on 12-07-2024 Specific gravity (U) [Rel density] 1.010 1.002-1.[address] [facility] Urobilinogen Ql (U)Ordered B y: Zahraa Ivey on 12-07-2024 Urine Urobilinogen Normal mg/dl Normal [facility] Vitamin D, 25-hydroxyOrdered By: Zahraa Ivey on 12-07-2024 Vitamin D 25-Hydroxy 46.3 ng/mL 30-100 [facility] Comment on above: Vitamin D StatusDefi ciency: <20 ng/mL (50nmol/L)Insufficiency: 20-30 ng/mL (50-75 nmol/L)Sufficiency: 30-100 ng/mL (75-250 nmol/L)Toxicity: >100 ng/mL (>250 nmol/L) White blood cell (WBC) count Ordered By: Zahraa Ivey on 12-07-2024 WBC (Bld) [#/Vol] 5.9 10*3/uL 4.4-11.0 [facility] White blood cell countOrdere d By: Zahraa Ivey on 12-07-2024 Urine WBC 0-5 SEEN /hpf 0-[address] [facility] CNPNon 08-24-2024 CNPN Telephone (WILLIED) SAGRARIOONEAL ([id number]) 1970 F Date Time Provider Department 08/24/24 TOSHIA HUSTON During your visit today, we recorded the following information about you: Radha Bailey OCCA 08/24/2024 11:16 AM Signed Type of form: occupational therapy orders Form received via fax When form is completed, Fax form to [facility] Occupational Therapy Form has been forwarded to MICHAEL Auguste Melissa, RN 08/25/2024 4:40 PM Signed Forms signed and faxed to [phone] Transmission completed Allergies As of Date: 08/24/2024 Noted Allergy Reaction PENICILLINS 08/08/2011 16 - Unknown Date Reviewed: 07/05/2024 Reviewed by: Radha Bailey OCCA - Fully Assessed Reason for Visit: Forms [913] Prescriptions as of 08/25/2024 - Prasterone, DHEA, (DHEA) 25 mg cap - loratadine (CLARITIN) 10 mg tablet Take 1 tablet by mouth every afternoon. - fluticasone-vilanterol (BREO ELLIPTA) 200-25 mcg/dose inhaler Inhale 1 Inhalation as instructed once daily. - benralizumab (FASENRA) 30 mg/mL injection Inject 1 mL subcutaneously every 4 weeks. - levonorgestrel (MIRENA) 20 mcg/24 hr (5 years) IUD Inserted in office - ergocalciferol, vitamin D2, (DRISDOL) 50,000 unit capsule - montelukast (SINGULAIR) 10 mg tablet - ALBUTEROL SULFATE (PROVENTIL INHALATION) Inhale as instructed. Problem List As Of Date 08/24/2024 Noted Resolved IUD check up [Z30.431] 04/05/2012 Chronic pain of right ankle [M25.571, G89.29] 04/30/2016 Encounter Status:Closed by ALBA JAIME on 08/25/24 [facility] Re-Evalution OTon 08-16-2024 Re-Evalution OT [facility] Occupational Therapy [facility] [address] [place] [address] / REEVALUATION / MEDICARE RECERTIFICATION OCCUPATIONAL THERAPY MR#: [id number] Acct: [id number] Name: ONEAL ZABALA Rep #: [id number] : 1970 54 From: Betsy Bernal Referring Dr.: Toshia Huston MD Status: REG R CR Insurance: [facility] Date: SELF PAY INSURANCE Re-Evaluation Intro: Toshia Huston MD, It has been my pleasure to treat ONEAL ZABALA over the last 4 visits for lymphedema. Please see the progress note below for an update on the occupational therapy plan of care! Subjective Subjective: pt arrives 9 min early started session early. update of information this date pt to potentially get pump. Objective Objective/Function: wears stockings BLEs to knee level 20-30 compression value doing LE exercise as well as lymph massage fluctuating swelling at this time mid foot R 24 cm L 24 cm ankle R 31 cm L 29 cm lower calf R 35 cm L 37 cm largest calf R 51 cm L 51 cm below knee R 49 cm L 49 cm pt initial eval 04/11/24 where conservative treatment measures started with lymph massage, LE exercises as well as compression garment wear. pt seen an additional 3 visits for treatment with last session being seen 07/14/24. At this time pt continues to demonstrate fluctuating BLE swelling no consistent reduction at this time despite conservative treatment for past 2 months. tactile medical one time trial of basic pump causing pt to have knee pain at this time. Plan Plan Visits in this POC: 3-4 visits Plan: compression garment lymph massage LE exercise Goals Goals Goal: Patient will demonstrate a 20% reduction in edema by discharge: Yes Goal: Patient will demonstrate adequate knowledge of self-massage by the end of the second week.: Yes Goal: Patient will demonstrate adequate knowledge of skin care and precautions by the end of the first week.: Yes Goal: Patient will demonstrate adequate knowledge of therapeutic exercises by discharge.: Yes Goal: Patient will select an appropriate compression garment and demonstrate adequate knowledge of correct donning technique, care and wearing schedule by discharge.: Yes Goal: Patient will voice understanding of need to replace compression garment every four to six months by discharge.: Yes Patient Goals: Learn how to Manage Lymphedema and Learn how to Apply Compression Stockings Anticipated Interventions Anticipated Interventions Anticipated Interventions: Education re Life-long lymphedema Management, Education re Skin Care and Precautions, Education re Self Massage Techniques, Education re Correct Donning Tech,Care Wearing Sched Comp Garments and Home Program Re-Evaluation Ending Re-evaluation ending: Please do not hesitate to contact me at [phone] by phone or if you have questions or concerns regarding this new plan of care! Sincerely, Betsy Bernal 08/16/24 1323 CC: EYNY Ivey; Toshia Huston MD CK Signed For Medicare only, by signing this I certify the plan of care. Physicians Signature Date [facility] 07-18-2024 [facility] Telephone (BRUNO) ONEAL ZABALA ([id number]) 1970 F Date Time Provider Department 07/18/24 TOSHIA HUSTON During your visit today, we recorded the following information about you: Radha Bailey OCCA 07/18/2024 4:10 PM Signed Type of form: Occupational therapy re-certification Form received via fax When form is completed, Fax form to [facility] Occupational Therapy at [phone] Form has been forwarded to MA RadhaMICHAEL Lynch Heidi L, OCCA 07/19/2024 10:57 AM Signed Forms signed and faxed to [facility] Occupational Therapy at [phone]. Transmission complete. Encounter closed. Allergies As of Date: 07/18/2024 Noted Allergy Reaction PENICILLINS 08/08/2011 16 - Unknown Date Reviewed: 07/05/2024 Reviewed by: Radha Bailey OCCA - Fully Assessed Reason for Visit: Forms [913] Prescriptions as of 07/19/2024 - Prasterone, DHEA, (DHEA) 25 mg cap - loratadine (CLARITIN) 10 mg tablet Take 1 tablet by mouth every afternoon. - fluticasone-vilanterol (BREO ELLIPTA) 200-25 mcg/dose inhaler Inhale 1 Inhalation as instructed once daily. - benralizumab (FASENRA) 30 mg/mL injection Inject 1 mL subcutaneously every 4 weeks. - levonorgestrel (MIRENA) 20 mcg/24 hr (5 years) IUD Inserted in office - ergocalciferol, vitamin D2, (DRISDOL) 50,000 unit capsule - montelukast (SINGULAIR) 10 mg tablet - ALBUTEROL SULFATE (PROVENTIL INHALATION) Inhale as instructed. Problem List As Of Date 07/18/2024 Noted Resolved IUD check up [Z30.431] 04/05/2012 Chronic pain of right ankle [M25.571, G89.29] 04/30/2016 Encounter Status:Closed by RADHA BAILEY on 07/19/24 [facility] Re-Evalution OTon 07-14-2024 Re-Evalution OT [facility] Occupational Therapy [facility] [facility] [place] [address] / REEVALUATION / MEDICARE RECERTIFICATION OCCUPATIONAL THERAPY MR#: [id number] Acct: [id number] Name: ONEAL ZABALA Rep #: [id number] : 1970 54 From: Betsy Bernal Referring Dr.: Toshia Huston MD Status: REG R CR Insurance: [employer] Eval Date: SELF PAY INSURANCE Re-Evaluation Intro: Toshia Huston MD, It has been my pleasure to treat ONEAL ZABALA over the last 4 visits for lymphedema. Please see the progress note below for an update on the occupational therapy plan of care! Subjective Subjective: pt arrives 9 min early started session early. update of information this date pt to potentially get pump. Objective Objective/Function: wears stockings BLEs to knee level 20-30 compression value doing LE exercise as well as lymph massage fluctuating swelling at this time mid foot R 24 cm L 24 cm ankle R 31 cm L 29 cm lower calf R 35 cm L 37 cm largest calf R 51 cm L 51 cm below knee R 49 cm L 49 cm Plan Plan Visits in this POC: 3-4 visits Plan: compression garment lymph massage LE exercise Goals Goals Goal: Patient will demonstrate a 20% reduction in edema by discharge: Yes Goal: Patient will demonstrate adequate knowledge of self-massage by the end of the second week.: Yes Goal: Patient will demonstrate adequate knowledge of skin care and precautions by the end of the first week.: Yes Goal: Patient will demonstrate adequate knowledge of therapeutic exercises by discharge.: Yes Goal: Patient will select an appropriate compression garment and demonstrate adequate knowledge of correct donning technique, care and wearing schedule by discharge.: Yes Goal: Patient will voice understanding of need to replace compression garment every four to six months by discharge.: Yes Patient Goals: Learn how to Manage Lymphedema and Learn how to Apply Compression Stockings Anticipated Interventions Anticipated Interventions Anticipated Interventions: Education re Life-long lymphedema Management, Education re Skin Care and Precautions, Education re Self Massage Techniques, Education re Correct Donning Tech,Care Wearing Sched Comp Garments and Home Program Re-Evaluation Ending Re-evaluation ending: Please do not hesitate to contact me at [phone] by phone or if you have questions or concerns regarding this new plan of care! Sincerely, Betsy Bernal 07/14/24 1609 CC: YENY Ivey; Toshia Huston MD CK Signed For Medicare only, by signing this I certify the plan of care. Physicians Signature Date [facility] 07-05-2024 [facility] Office Visit (VASSWS ) ONEAL ZABALA ([id number]) 1970 F Date Time Provider Department 07/05/24 9:30 AM TOSHIA HUSTON During your visit today, we recorded the following information about you: Pulse Blood pressure 74/minute 104/70 Toshia Huston, DO 07/05/2024 10:28 AM Signed [facility] DEPARTMENT OF VASCULAR SURGERY OUTPATIENT VISIT DATE July 05, 2024 OUTPATIENT VISIT TYPE ESTABLISHED SERVICE DATE: 07/05/2024 SERVICE TIME: 10:10 AM PRIMARY CARE PHYSICIAN: Jignesh Gibson MD HISTORY OF PRESENT ILLNESS: Ms. Zabala is a 54 year old female who presents today for a vascular surgery follow-up visit for lymphedema and venous insufficiency. She has been going to lymphedema therapy and doing massage. She has not been able to get into the pool to for therapy due to scheduling. She is scheduled to get lymphedema pumps in upcoming weeks. She does wear compression routinely PAST MEDICAL HISTORY Diagnosis Date Asthma IUD 01/2007 mirena Mitral prolapse SVT (supraventricular tachycardia) (HCC) PAST SURGICAL HISTORY Procedure Laterality Date ARTHROSCOPY,ANKLE; W/ANKLE ARTHRODESIS EVLT,ENDOVENOUS LASER TRT Right 02/19/2024 GSV EVLT,ENDOVENOUS LASER TRT Left 02/12/2024 GSV SOCIAL HISTORY Social History Tobacco Use Smoking status: Never Smokeless tobacco: Never Substance Use Topics Alcohol use: No Drug use: No MEDICATIONS: Prasterone, DHEA, (DHEA) 25 mg cap loratadine (CLARITIN) 10 mg tablet Take 1 tablet by mouth every afternoon. fluticasone-vilanterol (BREO ELLIPTA) 200-25 mcg/dose inhaler Inhale 1 Inhalation as instructed once daily. benralizumab (FASENRA) 30 mg/mL injection Inject 1 mL subcutaneously every 4 weeks. levonorgestrel (MIRENA) 20 mcg/24 hr (5 years) IUD Inserted in office ergocalciferol, vitamin D2, (DRISDOL) 50,000 unit capsule montelukast (SINGULAIR) 10 mg tablet ALBUTEROL SULFATE (PROVENTIL INHALATION) Inhale as instructed. ALLERGIES: ALLERGIES Allergen Reactions Penicillins Unknown PHYSICAL EXAM: BP 104/70 (BP Site: Left Arm, BP Position: Sitting, BP Cuff Size: Extra Large Adult) Pulse 74 SpO2 97% Gen- no distress Ext- bilateral lower extremity edema, induration on right medial calf, no ulcerations or tissue loss IMPRESSION: Ms. Zabala is a 54 year old female venous insufficiency, secondary lymphedema . PLAN and RECOMMENDATIONS: Continue compression, elevation and exercise Continue massaging area of induration Follow up in 6 months or sooner SIGNATURE: Toshia Huston DO PATIENT NAME: Oneal Zabala DATE: July 05, 2024 TIME: 10:10 AM Referring Provider: TOSHIA HUSTON [[id number]] Allergies As of Date: 07/05/2024 Noted Allergy Reaction PENICILLINS 08/08/2011 16 - Unknown Date Reviewed: 07/05/2024 Reviewed by: Radha Bailey OCCA - Fully Assessed Reason for Visit: Established Patient [175] Primary Visit Diagnosis:Secondary lymphedema [I89.0] Other Visit Diagnosis:Venous (peripheral) insufficiency [I87.2] Prescriptions as of 07/05/2024 - Prasterone, DHEA, (DHEA) 25 mg cap - loratadine (CLARITIN) 10 mg tablet Take 1 tablet by mouth every afternoon. - fluticasone-vilanterol (BREO ELLIPTA) 200-25 mcg/dose inhaler Inhale 1 Inhalation as instructed once daily. - benralizumab (FASENRA) 30 mg/mL injection Inject 1 mL subcutaneously every 4 weeks. - levonorgestrel (MIRENA) 20 mcg/24 hr (5 years) IUD Inserted in office - ergocalciferol, vitamin D2, (DRISDOL) 50,000 unit capsule - montelukast (SINGULAIR) 10 mg tablet - ALBUTEROL SULFATE (PROVENTIL INHALATION) Inhale as instructed. Problem List As Of Date 07/05/2024 Noted Resolved IUD check up [Z30.431] 04/05/2012 Chronic pain of right ankle [M25.571, G89.29] 04/30/2016 Disposition: Return in about 6 months (around 01/03/2025). Follow-up and Disposition History for Encounter Date Provider Department Center 07/05/2024 [id number] HUSTON Encounter Status:Closed by TOSHIA HUSTON on 07/05/24 [facility] 06-17-2024 CNPN Telephone (BRUNO) ONEAL ZABALA ([id number]) 1970 F Date Time Provider Department 06/17/24 TOSHIA HUSTON During your visit today, we recorded the following information about you: Radha Bailey OCCA 06/17/2024 3:28 PM Signed Type of form: prescription Form received via fax When form is completed, Fax form to [employer] Form has been forwarded to MICHAEL Auguste Heidi L, OCCA 06/20/2024 11:49 AM Signed Forms signed and faxed to [employer] at [phone]. Transmission complete. Encounter closed. Allergies As of Date: 06/17/2024 Noted Allergy Reaction PENICILLINS 08/08/2011 16 - Unknown Date Reviewed: 03/29/2024 Reviewed by: Radha Bailey OCCA - Fully Assessed Reason for Visit: Forms [913] Prescriptions as of 06/20/2024 - loratadine (CLARITIN) 10 mg tablet Take 1 tablet by mouth every afternoon. - fluticasone-vilanterol (BREO ELLIPTA) 200-25 mcg/dose inhaler Inhale 1 Inhalation as instructed once daily. - benralizumab (FASENRA) 30 mg/mL injection Inject 1 mL subcutaneously every 4 weeks. - levonorgestrel (MIRENA) 20 mcg/24 hr (5 years) IUD Inserted in office - ergocalciferol, vitamin D2, (DRISDOL) 50,000 unit capsule - montelukast (SINGULAIR) 10 mg tablet - ALBUTEROL SULFATE (PROVENTIL INHALATION) Inhale as instructed. Problem List As Of Date 06/17/2024 Noted Resolved IUD check up [Z30.431] 04/05/2012 Chronic pain of right ankle [M25.571, G89.29] 04/30/2016 Encounter Status:Closed by RAD[facility]VASSMD[facility] ONEAL ZABAL[facility] ([id number]) 1970 F Date Time Provider Department 04/15/24 TOSHIA HUSTON VASD During your visit today, we recorded the following information about you: Radha Bailey OCCA 04/15/2024 3:10 PM Signed Type of form: Lymphedema Therapy Form received via fax When form is completed, Fax form to [facility] Occupational Therapy at [phone] Form has been forwarded to MICHAEL Auguste Heidi L, OCCA 04/25/2024 4:18 PM Signed Forms signed and faxed to [facility] at [phone]. Transmission complete. Encounter closed. MICHAEL Heller Allergies As of Date: 04/15/2024 Noted Allergy Reaction PENICILLINS 08/08/2011 16 - Unknown Date Reviewed: 03/29/2024 Reviewed by: Radha Bailey OCCA - Fully Assessed Reason for Visit: Clinical Update [1735] Prescriptions as of 04/25/2024 - loratadine (CLARITIN) 10 mg tablet Take 1 tablet by mouth every afternoon. - fluticasone-vilanterol (BREO ELLIPTA) 200-25 mcg/dose inhaler Inhale 1 Inhalation as instructed once daily. - benralizumab (FASENRA) 30 mg/mL injection Inject 1 mL subcutaneously every 4 weeks. - levonorgestrel (MIRENA) 20 mcg/24 hr (5 years) IUD Inserted in office - ergocalciferol, vitamin D2, (DRISDOL) 50,000 unit capsule - montelukast (SINGULAIR) 10 mg tablet - ALBUTEROL SULFATE (PROVENTIL INHALATION) Inhale as instructed. Problem List As Of Date 04/15/2024 Noted Resolved IUD check up [Z30.431] 04/05/2012 Chronic pain of right ankle [M25.571, G89.29] 04/30/2016 Encounter Status:Closed by RADHA BAILEY on 04/25/24 [facility] CNOVon 03-29-2024 CNOV Office Visit (VASSWS ) ONEAL ZABALA ([id number]) 1970 F Date Time Provider Department 03/29/24 10:30 AM TOSHIA HUSTON VASSWS During your visit today, we recorded the following information about you: Pulse Blood pressure 82/minute 107/69 Toshia Huston, 04/28/2024 5:30 PM Signed [facility] DEPARTMENT OF VASCULAR SURGERY OUTPATIENT VISIT DATE March 29, 2024 OUTPATIENT VISIT TYPE ESTABLISHED SERVICE DATE: 03/29/2024 SERVICE TIME: 11:01 AM PRIMARY CARE PHYSICIAN: Jignesh Gibson MD HISTORY OF PRESENT ILLNESS: Ms. Zabala is a 53 year old female who presents today for a vascular surgery follow-up visit for bilateral EVLTs. She developed right access site induration and infection. It is slowly improving. Denies drainage, fever, or chills PAST MEDICAL HISTORY Diagnosis Date Asthma IUD 01/2007 mirena Mitral prolapse SVT (supraventricular tachycardia) (HCC) PAST SURGICAL HISTORY Procedure Laterality Date ARTHROSCOPY,ANKLE; W/ANKLE ARTHRODESIS SOCIAL HISTORY Social History Tobacco Use Smoking status: Never Smokeless tobacco: Never Substance Use Topics Alcohol use: No Drug use: No MEDICATIONS: loratadine (CLARITIN) 10 mg tablet Take 1 tablet by mouth every afternoon. fluticasone-vilanterol (BREO ELLIPTA) 200-25 mcg/dose inhaler Inhale 1 Inhalation as instructed once daily. benralizumab (FASENRA) 30 mg/mL injection Inject 1 mL subcutaneously every 4 weeks. levonorgestrel (MIRENA) 20 mcg/24 hr (5 years) IUD Inserted in office ergocalciferol, vitamin D2, (DRISDOL) 50,000 unit capsule montelukast (SINGULAIR) 10 mg tablet ALBUTEROL SULFATE (PROVENTIL INHALATION) Inhale as instructed. ALLERGIES: ALLERGIES Allergen Reactions Penicillins Unknown PHYSICAL EXAM: BP 107/69 (BP Site: Left Arm, BP Position: Sitting, BP Cuff Size: Regular Adult) Pulse 82 SpO2 97% Gen- no distress Ext- mild erythema, edema, healed access site IMPRESSION: Ms. Zabala is a 53 year old female with venous insufficiency, secondary lymphedema . PLAN and RECOMMENDATIONS: Recommend continued use of compression, elevation, exercise Referral placed for lymphedema therapy to help with symptom management. She had significant ankle injury requiring multiple surgeries in the past in which she also had issues with infection and healing following procedures SIGNATURE: Toshia Huston DO PATIENT NAME: Oneal Zabala DATE: March 29, 2024 TIME: 11:01 AM Toshia Huston DO 03/29/2024 11:16 AM Signed Sigvaris Sheer 20-30 mmHg Sony Carrasco (online) Referring Provider: TOSHIA HUSTON [[id number]] Allergies As of Date: 03/29/2024 Noted Allergy Reaction PENICILLINS 08/08/2011 16 - Unknown Date Reviewed: 03/29/2024 Reviewed by: Radha Bailey OCCA - Fully Assessed Reason for Visit: Established Patient [175] Primary Visit Diagnosis:Secondary lymphedema [I89.0] Other Visit Diagnosis:Venous (peripheral) insufficiency [I87.2] Order(s):CONSULT TO LYMPHEDEMA THERAPY [[id number]] Order #: [id number]: 1 FUTURE COMPRESSION STOCKINGS [[id number]] Order #: [id number] Prescriptions as of 04/28/2024 - loratadine (CLARITIN) 10 mg tablet Take 1 tablet by mouth every afternoon. - fluticasone-vilanterol (BREO ELLIPTA) 200-25 mcg/dose inhaler Inhale 1 Inhalation as instructed once daily. - benralizumab (FASENRA) 30 mg/mL injection Inject 1 mL subcutaneously every 4 weeks. - levonorgestrel (MIRENA) 20 mcg/24 hr (5 years) IUD Inserted in office - ergocalciferol, vitamin D2, (DRISDOL) 50,000 unit capsule - montelukast (SINGULAIR) 10 mg tablet - ALBUTEROL SULFATE (PROVENTIL INHALATION) Inhale as instructed. Problem List As Of Date 03/29/2024 Noted Resolved IUD check up [Z30.431] 04/05/2012 Chronic pain of right ankle [M25.571, G89.29] 04/30/2016 Other instructions from your clinician: Sigvaris Sheer 20-30 mmHg Sony Carrasco (online) Disposition: Return in about 3 months (around 06/29/2024). Follow-up and Disposition History for Encounter Date Provider Department Center 03/29/2024 [id number] HUSTON [facility] Encounter Status:Closed by TOSHIA HUSTON on 04/28/24 [facility] CNOVon 03-15-2024 CNOV Office Visit (JEN ) ONEAL ZABALA ([id number]) 1970 F Date Time Provider Department 03/15/24 10:30 AM TOSHIA HUSTON During your visit today, we recorded the following information about you: Pulse Blood pressure 83/minute 108/72 Toshia Huston DO 04/12/2024 6:01 PM Signed VASCULAR SURGERY ESTABLISHED PATIENT PRIMARY CARE PHYSICIAN: Jignesh Gibson MD SUBJECTIVE HISTORY OF PRESENT ILLNESS: Patient returns for a follow up after right leg EVLT. She had issues post operatively with phlebitis and cellulitis around access site. Her site has improved. She has remained tender although it is improving PAST MEDICAL/SURGICAL/FAMILY /SOCIAL HISTORY PAST MEDICAL HISTORY Diagnosis Date Asthma IUD 01/2007 mirena Mitral prolapse SVT (supraventricular tachycardia) ([facility]) PAST SURGICAL HISTORY Procedure Laterality Date ARTHROSCOPY,ANKLE; W/ANKLE ARTHRODESIS FAMILY HISTORY Problem Relation Age of Onset Diabetes Mother Heart Mother Hypertension Father GI Father Gurd/ acid reflux Hypertension Sister Hypertension Brother SOCIAL HISTORY Social History Tobacco Use Smoking status: Never Smokeless tobacco: Never Substance Use Topics Alcohol use: No Drug use: No MEDICATIONS/ALLERGIES Current Outpatient Medications Medication Sig Dispense Refill loratadine (CLARITIN) 10 mg tablet Take 1 tablet by mouth every afternoon. fluticasone-vilanterol (BREO ELLIPTA) 200-25 mcg/dose inhaler Inhale 1 Inhalation as instructed once daily. benralizumab (FASENRA) 30 mg/mL injection Inject 1 mL subcutaneously every 4 weeks. levonorgestrel (MIRENA) 20 mcg/24 hr (5 years) IUD Inserted in office 1 Each 0 ergocalciferol, vitamin D2, (DRISDOL) 50,000 unit capsule montelukast (SINGULAIR) 10 mg tablet ALBUTEROL SULFATE (PROVENTIL INHALATION) Inhale as instructed. No current facility-administered medications for this visit. ALLERGIES Allergen Reactions Penicillins Unknown OBJECTIVE BP 108/72 (BP Site: Left Arm, BP Position: Sitting, BP Cuff Size: Regular Adult) Pulse 83 SpO2 97% Gen- no distress Ext- access site- left healed, right closed, right lower extremity redness at mid-distal lower leg ASSESSMENT Symptomatic varicose veins PLAN/RECOMMENDATIONS Recommend continued compression as tolerated Follow up in 2 weeks SIGNATURE: Toshia Huston DO PATIENT NAME: Oneal Zabala DATE: April 12, 2024 TIME: 5:44 PM Allergies As of Date: 03/15/2024 Noted Allergy Reaction PENICILLINS 08/08/2011 16 - Unknown Date Reviewed: 03/15/2024 Reviewed by: Radha Bailey OCCA - Fully Assessed Reason for Visit: Established Patient [175] Primary Visit Diagnosis:Symptomatic varicose veins of both lower extremities [I83.893] Prescriptions as of 04/12/2024 - loratadine (CLARITIN) 10 mg tablet Take 1 tablet by mouth every afternoon. - fluticasone-vilanterol (BREO ELLIPTA) 200-25 mcg/dose inhaler Inhale 1 Inhalation as instructed once daily. - benralizumab (FASENRA) 30 mg/mL injection Inject 1 mL subcutaneously every 4 weeks. - levonorgestrel (MIRENA) 20 mcg/24 hr (5 years) IUD Inserted in office - ergocalciferol, vitamin D2, (DRISDOL) 50,000 unit capsule - montelukast (SINGULAIR) 10 mg tablet - ALBUTEROL SULFATE (PROVENTIL INHALATION) Inhale as instructed. Problem List As Of Date 03/15/2024 Noted Resolved IUD check up [Z30.431] 04/05/2012 Chronic pain of right ankle [M25.571, G89.29] 04/30/2016 Encounter Status:Closed by TOSHIA HUSTON on 04/12/24 Normal [facility] US Veinon 02-26-2024 Non-Invasive Vascular Laboratory [facility] Venous Valvular Incompetency Unilateral - Right Date of service/time: 02/26/2024 2:00:02 PM Name: ONEAL ZABALA Date of : 1970 Age: 53 years Gender: F Clinical Indication 02/19/2024 right great saphenous vein endovenous laser ablation. TECHNIQUE -------- A venous duplex ultrasound examination was performed, including grayscale imaging with compression maneuvers and color Doppler and spectral Doppler examination with augmentation maneuvers and response to respiration of the below mentioned veins. IMPRESSION RIGHT SIDE - DEEP VEINS Successful ablation of the great saphenous vein to within 1.08 cm of the saphenofemoral junction. The inferior epigastric vein appears patent. The external iliac vein, common femoral vein, and femoral vein proximal are patent with respirophasic flow. There is no evidence of deep venous thrombosis. -Lymph nodes noted in groin. Largest measures 2.6 cm Technologist: Avelina Reid RVT, RDRI Ordering physician: TOSHIA HUSTON Interpreting physician: ABDIRASHID Cano DO Final See Link below for Image [facility] Veinon 02-20-2024 Non-Invasive Vascular Laboratory [facility] Venous Valvular Incompetency Limited Date of service/time: 02/19/2024 12:33:26 PM Name: ONEAL ZABALA Date of : 1970 Age: 53 years Gender: F Clinical Indication Status post venous ablation. TECHNIQUE -------- A venous duplex ultrasound examination was performed, including grayscale imaging with compression maneuvers and color Doppler and spectral Doppler examination with augmentation maneuvers and response to respiration of the below mentioned veins. FINDINGS -------- LEFT SIDE Distal external iliac vein Doppler: normal flow. Compression: normal. Common femoral vein Doppler: normal flow. Compression: normal. Femoral vein Doppler: normal flow. Compression: normal. Great saphenous vein Doppler: absent flow. Compression: abnormal. Inferior epigastric vein Doppler: normal flow. IMPRESSION LEFT SIDE - SUPERFICIAL VEINS Successful ablation of the left great saphenous vein to within 1.78 cm from the saphenofemoral junction. The anterior accessory great saphenous vein and inferior epigastric vein are patent. The external iliac vein, common femoral vein, and femoral vein proximal are patent with respirophasic flow. There is no evidence of deep vein thrombosis. Technologist: Franky Bernal RVT, RDMS Ordering physician: TOSHIA HUSTON Interpreting physician: Jarett Ziegler MD Final See Link below for Image [facility] No Panel InformationOrdered By: Zahraa Ivey on 06-26-2023 Dehydroepiandrosterone Sulfate 10.2 ug/dL 41.2-243.[address] [facility] Comment on above: Performed at: [employer] [facility] - [employer] [address] Director: Manny Link PhD, Phone: [phone] Follicle Stimulating Hormone 60.1 mIU/mL [facility] Comment on above: NORMAL REFERENCE RAN GES FEMALE FOLLICULAR 2.3 - 12.6 mIU/mL MID-CYCLE PEAK 5.2 - 17.5 mIU/mL LUTEAL 1.7 - 12.9 mIU/mL POST-MENOPAUSAL ON MHT 5.9 - 72.8 mIU/mL NOT ON MHT 12.7 - 132.2 mlU/mL MALE 0.7 - 10.8 mIU/mL Luteinizing Hormone 22.4 mIU/mL [facility] Comment on above: NORMAL REFERENCE RAN GES FEMALE FOLLICULAR 1.9 - 26.2 mIU/mL MID-CYCLE PEAK 22.8 - 76.1 mIU/mL LUTEAL 0.6 - 16.6 mIU/mL POST-MENOPAUSAL ON MHT 1.1 - 52.4 mIU/mL NOT ON MHT 8.6 - 61.8 mIU/mL MALE 1.2 - 10.6 mIU/mL Thyroid Stimulating Hormone (TSH) 2.16 uIU/mL 0.358-3.[address] [facility] Serum or plasma prolactin me asurement (mass/volume)Ordered By: Zahraa Ivey on 06-26-2023 Prolactin [Mass/Vol] 24.4 ng/mL [facility] Comment on above: NORMAL REFERENCE RAN GES FEMALE NON- 2.2 - 30.3 ng/mL 8.1 - 347.6 ng/mL POST-MENOPAUSAL 0.7 - 31.5 ng/mL MALE 2.5 - 17.4 ng/mL HGB A1C ([id number])Ordered By: S ystem Acid Tester on 04-24-2023 HbA1c (Bld) [Mass fraction] 5.8 % Abnormal 4.8-5.6 [facility]; [facility] Work Phone: LIPID PANEL ([id number])Ordered B y: Slag Mixer on 04-24-2023 Cholesterol [Mass/Vol] 206 mg/dL Abnormal 100-199 [facility]; [facility] Work Phone: Cholesterol in HDL [Mass/Vol] 64 mg/dL Normal [facility]; [facility] Work Phone: Triglyceride [Mass/Vol] 104 mg/dL Normal 0-149 [facility]; [facility] Work Phone: LIPID PANEL ([id number]) 18 mg/dL Normal 5-40 [facility]; [facility] Work Phone: LIPID PANEL ([id number]) 124 mg/dL Abnormal 0-99 [facility]; [facility] Work Phone: LIPID PANEL ([id number]) 1.9 {ratio} Normal 0.0-3.2 [facility]; [facility] Work Phone: PARATHORMONE ([id number])Ordered By: Slag Mixer on 04-24-2023 Parathyrin.intact [Mass/Vol] 30 pg/mL Normal 15-65 [facility]; [facility] Work Phone: Basophil percentageOrdered B y: Zahraa Ivey on 11-12-2022 Cholesterol [Mass/Vol] 181 mg/dL <200 [facility] Comment on above: <200 mg/dL Desirable 200-240 mg/dL Borderline >240 mg/dL High Risk Triglyceride [Mass/Vol] 43 mg/dL <199 [facility] Comment on above: The drugs N-Acetylcy steine and Metamizole may falsely depress this assay.Serum Triglycerides Reference Interval Normal <150 mg/dL Borderline high 150 - 199 mg/dL High 200 - 499 mg/dL Very High > or = 500 mg/dL No Panel InformationOrdered By: Zahraa Ivey on 11-12-2022 Parathyroid Hormone (Intact) 61.7 pg/mL 18.4-80.[address] [facility] Serum or plasma cholesterol in HDL measurement (mass/volume)Ordered By: Zahraa Ivey on 11-12-2022 Cholesterol in HDL [Mass/Vol] 67 mg/dL >[address] [facility] Comment on above: The drugs N-Acetylcy steine and Metamizole may falsely depress this assay. Reference Range HDL <40 mg/dL Low HDL Cholesterol HDL >or= 60 mg/dL High HDL Cholesterol Serum or plasma cholesterol in VLDL measurement (mass/volume)Ordered By: Zahraa Ivey on 11-12-2022 Cholesterol in VLDL [Mass/Vol] 9 mg/dL 5-[address] [facility] Serum or plasma low density lipoprotein (LDL) cholesterol measurement (mass/volume)Ordered By: Zahraa Ivey on 11-12-2022 Cholesterol in LDL [Mass/Vol] 105 mg/dL 0-[address] [facility] Whole blood hemoglobin A1c/t otal hemoglobin ratio (mass fraction)Ordered By: Zahraa Ivey on 11-12-2022 HbA1c (Bld) [Mass fraction] 5.0 % 3.8-5.[address] [facility] Comment on above: Normal < 5.7 % Predi abetic 5.7 - 6.4 % Diabetic >or= 6.5 % Please note range changes. Routine wound cultureOrdered By: Dr. Burrell on 09-28-2022 Bacteria identified Cx Nom (Wound) No growth aerobically. [facility] Gram stain for investigation of transfusion reactionOrdered By: Dr. Burrell on 09-26-2022 Microscopic observation Gram stain Nom (Unsp spec) [facility] Laboratory - Chemistry and C hemistry - challengeOrdered By: Dr. Pérez on 08-29-2022 HCG ( test) Ql (U) Negative [facility] Comment on above: Very dilute urine sp ecimens, as indicated by a low specificgravity, may not contain sales representative metals levels of hCG. If is still suspected, a first morning urinespecimen should be collected 48 hours later and tested. Urinalysis, Office ([id number])Or dered By: Cande Bach on 08-19-2022 Bilirubin Ql (U) Negative Normal [facility]; [facility] Work Phone: Glucose Test strip (U) [Mass/Vol] Negative Normal [facility]; [facility] Work Phone: Hemoglobin Ql (U) Negative Normal Compre[facility] ens[facility]; [facility] Work Phone: Ketones Ql (U) Negative Normal Comprehens negar [facility]; [facility] Work Phone: Leukocyte esterase Test strip Ql (U) Negative Normal [facility]; [facility] Work Phone: Nitrite Ql (U) Negative Normal [facility]; [facility] Work Phone: pH (U) 6.0 [pH] Normal [facility]; [facility] Work Phone: Protein Ql (U) Negative Normal [facility]prehens [facility]; [facility] Work Phone: Specific gravity (U) [Rel density] 1.025 1 Normal [facility]; [facility] Work Phone: Urobilinogen (24H U) [Mass/Time] Normal Normal [facility]; [facility] Work Phone: CALCIFEDIOL ([id number])Ordered B y: Slag Mixer on 04-30-2022 25-hydroxyvitamin D [Mass/Vol] 39.3 ng/mL Normal 30.0-100.0 [facility]; [facility] Work Phone: CBC, PLATELETS & MANUAL DIFF ([id number])Ordered By: Slag Mixer on 04-30-2022 Basophils (Bld) [#/Vol] 0.0 10*3/uL Normal 0.0-0.2 [facility]; [facility] Work Phone: Basophils/100 WBC (Bld) 0 % Normal [facility]; [facility] Work Phone: Eosinophils (Bld) [#/Vol] 0.0 10*3/uL Normal 0.0-0.4 [facility]; [facility] Work Phone: Eosinophils/100 WBC (Bld) 0 % Normal [facility]; [facility] Work Phone: Erythrocyte distribution width (RBC) [Ratio] 12.4 % Normal 11.7-15.4 [facility]; [facility] Work Phone: Hematocrit (Bld) [Volume fraction] 41.3 % Normal 34.0-46.6 [facility]; [facility] Work Phone: Hemoglobin (Bld) [Mass/Vol] 13.9 g/dL Normal 11.1-15.9 [facility]; [facility] Work Phone: Immature granulocytes (Bld) [#/Vol] 0.0 10*3/uL Normal 0.0-0.1 [facility]; [facility] Work Phone: Immature granulocytes/100 WBC (Bld) 0 % Normal [facility]; [facility] Work Phone: Lymphocytes (Bld) [#/Vol] 1.7 10*3/uL Normal 0.7-3.1 [facility]; [facility] Work Phone: Lymphocytes/100 WBC (Bld) 29 % Normal [facility]; [facility] Work Phone: MCH (RBC) [Entitic mass] 31.0 pg Normal 26.6-33.0 [facility]; [facility] Work Phone: MCHC (RBC) [Mass/Vol] 33.7 g/dL Normal 31.5-35.7 [facility] prehensive [facility]; [facility] Work Phone: MCV (RBC) [Entitic vol] 92 fL Normal 79-97 [facility]; [facility] Work Phone: Monocytes (Bld) [#/Vol] 0.5 10*3/uL Normal 0.1-0.9 [facility]; [facility] Work Phone: Monocytes/100 WBC (Bld) 9 % Normal [facility]; [facility] Work Phone: Neutrophils (Bld) [#/Vol] 3.5 10*3/uL Normal 1.4-7.0 [facility]; [facility] Work Phone: Neutrophils/100 WBC (Bld) 62 % Normal [facility]; [facility] Work Phone: Platelets (Bld) [#/Vol] 236 10*3/uL Normal 150-450 [facility]; [facility] Work Phone: RBC (Bld) [#/Vol] 4.49 10*6/uL Normal 3.77-5.28 [facility]; [facility] Work Phone: WBC (Bld) [#/Vol] 5.7 10*3/uL Normal 3.4-10.8 [facility]; [facility] Work Phone: HGB A1C ([id number])Ordered By: S ystem Acid Tester on 04-30-2022 HbA1c (Bld) [Mass fraction] 5.9 % Abnormal 4.8-5.6 [facility]; [facility] Work Phone: LIPID PANEL ([id number])Ordered B y: Slag Mixer on 04-30-2022 Cholesterol [Mass/Vol] 221 mg/dL Abnormal 100-199 [facility]; [facility] Work Phone: Cholesterol in HDL [Mass/Vol] 78 mg/dL Normal [facility]; [facility] Work Phone: Triglyceride [Mass/Vol] 82 mg/dL Normal 0-149 [facility]; [facility] Work Phone: LIPID PANEL ([id number]) 14 mg/dL Normal 5-40 [facility]; [facility] Work Phone: LIPID PANEL ([id number]) 129 mg/dL Abnormal 0-99 [facility]; [facility] Work Phone: LIPID PANEL ([id number]) 1.7 {ratio} Normal 0.0-3.2 [facility]; [facility] Work Phone: METABOLIC PANEL, COMPREHENSI VE ([id number])Ordered By: Slag Mixer on 04-30-2022 Albumin [Mass/Vol] 4.4 g/dL Normal 3.8-4.8 [facility]; [facility] Work Phone: Albumin/Globulin [Mass ratio] 2.0 {ratio} Normal 1.2-2.2 [facility]; [facility] Work Phone: ALP [Catalytic activity/Vol] 82 U/L Normal 44-121 [facility]; [facility] Work Phone: ALT [Catalytic activity/Vol] 18 U/L Normal 0-32 [facility]; [facility] Work Phone: AST [Catalytic activity/Vol] 19 U/L Normal 0-40 [facility]; [facility] Work Phone: Bilirubin [Mass/Vol] 0.6 mg/dL Normal 0.0-1.2 [facility]; [facility] Work Phone: Calcium [Mass/Vol] 9.1 mg/dL Normal 8.7-10.2 [facility]; [facility] Work Phone: Chloride [Moles/Vol] 103 mmol/L Normal 96-106 [facility]; [facility] Work Phone: CO2 [Moles/Vol] 22 mmol/L Normal 20-29 [facility]; [facility] Work Phone: Creatinine [Mass/Vol] 0.78 mg/dL Normal 0.57-1.00 [facility]; [facility] Work Phone: Globulin (S) [Mass/Vol] 2.2 g/dL Normal 1.5-4.5 [facility]; [facility] Work Phone: Glucose [Mass/Vol] 101 mg/dL Abnormal 65-99 [facility]; [facility] Work Phone: Potassium [Moles/Vol] 4.6 mmol/L Normal 3.5-5.2 [facility] Internal [facility]; [facility] Work Phone: Protein [Mass/Vol] 6.6 g/dL Normal 6.0-8.5 Compre [facility]; [facility] Work Phone: Sodium [Moles/Vol] 140 mmol/L Normal 134-144 [facility]; [facility] Work Phone: Urea nitrogen [Mass/Vol] 13 mg/dL Normal 6-24 [facility]; [facility] Work Phone: Urea nitrogen/Creatinine [Mass ratio] 17 mg/mg Normal 9-23 [facility]; [facility] Work Phone: METABOLIC PANEL, COMPREHENSIVE ([id number]) 92 mL/min/1.73 Normal Comprehens neg[facility]; [facility] Work Phone: TSH (THYROID STIMULATING HOR XU) ([id number])Ordered By: Slag Mixer on 04-30-2022 TSH Qn 1.270 {uIU/mL} Normal 0.450-4.50 0 [facility]; [facility] Work Phone: Basophil percentageon 2021 Chloride [Moles/Vol] 102 mmol/L 98-107 [facility] Work Phone: Glucose [Mass/Vol] 87 mg/dL 74-106 [facility] Work Phone: Potassium [Moles/Vol] 4.1 mmol/L 3.5-5.1 [facility] Work Phone: Sodium [Moles/Vol] 136 mmol/L 136-145 [facility] Work Phone: Laboratory - Chemistry and C hemistry - challengeon 04-08-2022 CO2 [Moles/Vol] 26.0 mmol/L 21.0-32.[address] [facility] Work Phone: Urea nitrogen/Creatinine [Mass ratio] 13.4 mg/mg 10-[address] [facility] Work Phone: No Panel Informationon 04-08 Estimated GFR (MDRD) Amer 106 mL/min >[address] [facility] Work Phone: Comment on above: GFR Calc Estimated GFR (MDRD) Non-Af Amer 88 mL/min >[address] [facility] Work Phone: Comment on above: Non- GFR Calc Serum or plasma calcium peng urement (mass/volume)on 04-08-2022 Calcium [Mass/Vol] 9.2 mg/dL 8.5-10.1 [facility] Work Phone: Serum or plasma creatinine m easurement (mass/volume)on 04-08-2022 Creatinine [Mass/Vol] 0.75 mg/dL 0.55-1.02 [facility] Work Phone: Comment on above: The validity of the calculated GFR & GFRAA in patients over 70 years has not been determined. Clinical correlation is essential. Serum or plasma urea nitroge n measurement (mass/volume)on 04-08-2022 Urea nitrogen [Mass/Vol] 10 mg/dL 7-[address] [facility] Work Phone: Thin prep Papanicolaou smear with manual screeningon 04-08-2022 Thin prep Papanicolaou smear with manual screening 8 5-[address] [facility] Work Phone: Absolute lymphocyte counton 02-21-2022 Lymphocytes Auto (Unsp spec) [#/Vol] 1.72 10*3/uL 0.83-4.[address] [facility] Work Phone: Basophil percentageon 2021 Basophils/100 WBC (Bld) 0.9 % 0-1 [facility] Work Phone: Eosinophils/100 WBC (Bld) 2.6 % 0-[address] [facility] Work Phone: Neutrophils (Bld) [#/Vol] 5.8 10*3/uL 2.0-7.[address] [facility] Work Phone: Neutrophils/100 WBC (Bld) 66.7 % 47-[address] [facility] Work Phone: WBC (Bld) [#/Vol] 8.7 10*3/uL 4.4-11.0 [facility] Work Phone: Blood erythrocytes count (nu mber/volume)on 02-21-2022 RBC (Bld) [#/Vol] 4.13 10*6/uL 4.2-5.4 [facility] Work Phone: Blood hemoglobin measurement (mass/volume)on 02-21-2022 Hemoglobin (Bld) [Mass/Vol] 13.1 g/dL 12.0-15.[address] [facility] Work Phone: Blood lymphocytes/100 leukoc yteson 02-21-2022 Lymphocytes/100 WBC (Bld) 19.7 % 19-[address] [facility] Work Phone: Blood monocytes/100 leukocyt eson 02-21-2022 Monocytes/100 WBC (Bld) 9.8 % 0-10 [facility] Work Phone: Blood platelet mean volumeon 02-21-2022 Platelet mean volume (Bld) [Entitic vol] 9.6 fL 6.2-12.[address] [facility] Work Phone: Determination of erythrocyte mean corpuscular volume (MCV)on 02-21-2022 MCV (RBC) [Entitic vol] 95.4 fL 81-99 [facility] Work Phone: Hematocrit Auto (Bld) [Volum e fraction]on 02-21-2022 Hematocrit (Bld) [Volume fraction] 39.4 % 37-[address] [facility] Work Phone: Laboratory - Hematology and Cell countson 02-21-2022 Erythrocyte distribution width (RBC) [Entitic vol] 45.5 fL 35.1-43.[address] [facility] Work Phone: Erythrocyte distribution width (RBC) [Ratio] 12.9 % 11.6-14.[address] [facility] Work Phone: Immature granulocytes/100 WBC (Bld) 0.300 % 0.0-0.[address] [facility] Work Phone: Comment on above: IG% - Immature Granu locytes (promyelocytes, myelocytes and metamyelocytes) > 1% indicates that a LEFT SHIFT is Present. MCH (RBC) [Entitic mass] 31.7 pg 27.0-32.[address] [facility] Work Phone: Nucleated RBC/100 WBC (Bld) [Ratio] 0 % 0-[address] [facility] Work Phone: MCHC Auto (RBC) [Mass/Vol]on 02-21-2022 MCHC (RBC) [Mass/Vol] 33.2 g/dL 32-36 [facility] Work Phone: Platelets bldon 02-21-2022 Platelets (Bld) [#/Vol] 227 10*3/uL 150-[address] [facility] Work Phone: CALCIFEDIOL ([id number])Ordered B y: Slag Mixer on 07-08-2021 25-hydroxyvitamin D [Mass/Vol] 82.8 ng/mL Normal 30.0-100.0 [facility]; [facility] Work Phone: CBC, Platelets & Auto Diff ( [id number])Ordered By: Slag Mixer on 07-08-2021 Basophils (Bld) [#/Vol] 0.1 10*3/uL Normal 0.0-0.2 [facility]; [facility] Work Phone: Basophils/100 WBC (Bld) 1 % Normal [facility]; [facility] Work Phone: Eosinophils (Bld) [#/Vol] 0.2 10*3/uL Normal 0.0-0.4 [facility]; [facility] Work Phone: Eosinophils/100 WBC (Bld) 2 % Normal [facility]; [facility] Work Phone: Erythrocyte distribution width (RBC) [Ratio] 12.3 % Normal 11.7-15.4 [facility]; [facility] Work Phone: Hematocrit (Bld) [Volume fraction] 40.7 % Normal 34.0-46.6 [facility]; [facility] Work Phone: Hemoglobin (Bld) [Mass/Vol] 13.8 g/dL Normal 11.1-15.9 [facility]; [facility] Work Phone: Immature granulocytes (Bld) [#/Vol] 0.0 10*3/uL Normal 0.0-0.1 [facility]; [facility] Work Phone: Immature granulocytes/100 WBC (Bld) 0 % Normal [facility]; [facility] Work Phone: Lymphocytes (Bld) [#/Vol] 1.9 10*3/uL Normal 0.7-3.1 [facility]; [facility] Work Phone: Lymphocytes/100 WBC (Bld) 26 % Normal [facility]; [facility] Work Phone: MCH (RBC) [Entitic mass] 31.9 pg Normal 26.6-33.0 [facility]; [facility] Work Phone: MCHC (RBC) [Mass/Vol] 33.9 g/dL Normal 31.5-35.7 [facility] Work Phone: MCV (RBC) [Entitic vol] 94 fL Normal 79-97 [facility]; [facility] Work Phone: Monocytes (Bld) [#/Vol] 0.7 10*3/uL Normal 0.1-0.9 [facility]; [facility] Work Phone: Monocytes/100 WBC (Bld) 9 % Normal [facility]; [facility] Work Phone: Neutrophils (Bld) [#/Vol] 4.6 10*3/uL Normal 1.4-7.0 [facility]; [facility] Work Phone: Neutrophils/100 WBC (Bld) 62 % Normal [facility]; [facility] Work Phone: Platelets (Bld) [#/Vol] 259 10*3/uL Normal 150-450 [facility]; [facility] Work Phone: RBC (Bld) [#/Vol] 4.33 10*6/uL Normal 3.77-5.28 Compr ehensive [facility]; [facility] Work Phone: WBC (Bld) [#/Vol] 7.5 10*3/uL Normal 3.4-10.8 [facility]; [facility] Work Phone: HGB A1C ([id number])Ordered By: S ystem Acid Tester on 07-08-2021 HbA1c (Bld) [Mass fraction] 5.6 % Normal 4.8-5.6 [facility]; [facility] Work Phone: LIPID PANEL ([id number])Ordered B y: Slag Mixer on 07-08-2021 Cholesterol [Mass/Vol] 176 mg/dL Normal 100-199 [facility]; [facility] Work Phone: Cholesterol in HDL [Mass/Vol] 63 mg/dL Normal [facility]; [facility] Work Phone: Triglyceride [Mass/Vol] 60 mg/dL Normal 0-149 [facility] Medicine; [facility] Work Phone: LIPID PANEL ([id number]) 12 mg/dL Normal 5-40 [facility] Internal Medicine; [facility] Work Phone: LIPID PANEL (41099) 101 mg/dL Abnormal 0-99 [facility] Internal Medicine; [facility] Work Phone: LIPID PANEL (51627) 1.6 {ratio} Normal 0.0-3.2 [facility] Internal Medicine; [facility] Work Phone: Metabolic Panel, Comprehensi ve (14549)Ordered By: Slag Mixer on 07-08-2021 Albumin [Mass/Vol] 4.0 g/dL Normal 3.8-4.8 [facility] Internal Medicine; [facility] Work Phone: Albumin/Globulin [Mass ratio] 1.7 {ratio} Normal 1.2-2.2 [facility] Internal Medicine; [facility] Work Phone: ALP [Catalytic activity/Vol] 80 U/L Normal 44-121 [facility]; [facility] Work Phone: ALT [Catalytic activity/Vol] 13 U/L Normal 0-32 [facility] Internal Medicine; [facility] Work Phone: AST [Catalytic activity/Vol] 13 U/L Normal 0-40 [facility] Internal Medicine; [facility] Work Phone: Bilirubin [Mass/Vol] 0.5 mg/dL Normal 0.0-1.2 [facility]; [facility] Work Phone: Calcium [Mass/Vol] 9.3 mg/dL Normal 8.7-10.2 [facility] Internal Medicine; [facility] Work Phone: Chloride [Moles/Vol] 104 mmol/L Normal 96-106 [facility] Internal Medicine; [facility] Internal Medicine Work Phone: CO2 [Moles/Vol] 27 mmol/L Normal 20-29 [facility] Internal Medicine; [facility] Work Phone: Creatinine [Mass/Vol] 0.77 mg/dL Normal 0.57-1.00 [facility]; [facility] Internal Medicine Work Phone: GFR/1.73 sq M.predicted among blacks CKD-EPI (S/P/Bld) [Vol rate/Area] 105 mL/min/1.73 Normal [facility] Internal Medicine; [facility] Work Phone: GFR/1.73 sq M.predicted among non-blacks CKD-EPI (S/P/Bld) [Vol rate/Area] 91 mL/min/1.73 Normal [facility] Internal Medicine; [facility] Medicine Work Phone: Globulin (S) [Mass/Vol] 2.4 g/dL Normal 1.5-4.5 [facility]; [facility] Internal Medicine Work Phone: Glucose [Mass/Vol] 96 mg/dL Normal 65-99 [facility] Internal Medicine; [facility] Internal Medicine Work Phone: Potassium [Moles/Vol] 4.3 mmol/L Normal 3.5-5.2 [facility] Internal [facility]; [facility] Internal Medicine Work Phone: Protein [Mass/Vol] 6.4 g/dL Normal 6.0-8.5 [facility] Internal Medicine; [facility] Work Phone: Sodium [Moles/Vol] 141 mmol/L Normal 134-144 [facility] Internal Medicine; [facility] Work Phone: Urea nitrogen [Mass/Vol] 12 mg/dL Normal 6-24 [facility]; [facility] Work Phone: Urea nitrogen/Creatinine [Mass ratio] 16 mg/mg Normal 9-23 [facility]; [facility] Work Phone: TSH ([id number])Ordered By: Syste m Acid Tester on 07-08-2021 TSH Qn 2.490 {uIU/mL} Normal 0.450-4.50 0 [facility]; [facility] Work Phone: CALCIFEDIOL ([id number])Ordered B y: Slag Mixer on 08-23-2020 25-Hydroxyvitamin D2+25-Hydroxyvitamin D3 [Mass/Vol] 49.2 ng/mL Normal 30.0-100.0 [facility]; [facility] Work Phone: Comment on above: Vitamin D deficiency has been defined by the [facility] and an Endocrine Society practice guideline as alevel of serum 25-OH vitamin D less than 20 ng/mL (1,2).The Endocrine Society went on to further define vitamin Dinsufficiency as a level between 21 and 29 ng/mL (2).1. IOM ([facility]). 2010. Dietary reference intakes for calcium and D. [place]: The National Academies Press.2. Ashwini MF, Luis NC, Keanu KAY, et al. Evaluation, treatment, and prevention of vitamin D deficiency: an Endocrine Society clinical practice guideline. JCEM. 2010; 96(7):1911-30. PATIENT WAS FASTINGP ERFORMED BY: [facility]Tr[facility]6[address] [facility] [id number] CBC, Platelets & Auto Diff ( [id number])Ordered By: Slag Mixer on 08-23-2020 Basophils (Bld) [#/Vol] 0.1 {x10E3/uL} Normal 0.0-0.2 [facility]; [facility] Work Phone: Comment on above: PATIENT WAS FASTINGP ERFORMED BY: CB [facility] Kevdho5[address] RoadDublin [place] [id number] Basophils (Bld) [#/Vol] 0.1 10*3/uL Normal 0.0-0.2 [facility]; [facility] Work Phone: Basophils/100 WBC (Bld) 1 % Normal C omprehensive Internal Medicine; [facility] Work Phone: Comment on above: PATIENT WAS FASTINGP ERFORMED BY: CB [facility] Brvnko6973 [address] RoadDublin [place] [id number] Eosinophils (Bld) [#/Vol] 0.2 {x10E3/uL} Normal 0.0-0.4 [facility]; [facility] Work Phone: Comment on above: PATIENT WAS FASTINGP ERFORMED BY: [facility] Ctspkm2433 [address] RoadDublin [place] [id number] Eosinophils (Bld) [#/Vol] 0.2 10*3/uL Normal 0.0-0.4 [facility]; [facility] Work Phone: Eosinophils/100 WBC (Bld) 3 % Normal [facility]; [facility] Work Phone: Comment on above: PATIENT WAS FASTINGP ERFORMED BY: CB [facility] Aeoref5535 [address]ences RoadDuin [place] [id number] Erythrocyte distribution width (RBC) [Ratio] 12.7 % Normal 11.7-15.4 [facility]; [facility] Work Phone: Comment on above: PATIENT WAS FASTINGP ERFORMED BY: CB [facility] Gxvieg3450 [address] RoadDublin [place] [id number] Hematocrit (Bld) [Volume fraction] 40.6 % Normal 34.0-46.6 [facility]; [facility] Work Phone: Comment on above: PATIENT WAS FASTINGP ERFORMED BY: CB [facility] Yrxgbe3269 [address] RoadDublin [place] [id number] Hemoglobin (Bld) [Mass/Vol] 13.8 g/dL Normal 11.1-15.9 [facility]; [facility] Work Phone: Comment on above: PATIENT WAS FASTINGP ERFORMED BY: MARCOS GatoAntonio MakiAgsvrh8229 [facility] [id number] Immature granulocytes (Bld) [#/Vol] 0.0 {x10E3/uL} Normal 0.0-0.1 [facility]; [facility] Work Phone: Comment on above: PATIENT WAS FASTINGP ERFORMED BY: MARCOS Makilin6[address] [facility] [id number] Immature granulocytes (Bld) [#/Vol] 0.0 10*3/uL Normal 0.0-0.1 [facility]; [facility] Work Phone: Immature granulocytes/100 WBC (Bld) 0 % Normal [facility]; [facility] Work Phone: Comment on above: PATIENT WAS FASTINGP ERFORMED BY: MARCOS Makilin6370 [facility] [id number] Lymphocytes (Bld) [#/Vol] 1.8 {x10E3/uL} Normal 0.7-3.1 [facility]; [facility] Work Phone: Comment on above: PATIENT WAS FASTINGP ERFORMED BY: MARCOS Makilin6[address] [facility] [id number] Lymphocytes (Bld) [#/Vol] 1.8 10*3/uL Normal 0.7-3.1 [facility]; [facility] Work Phone: Lymphocytes/100 WBC (Bld) 22 % Normal [facility]; [facility] Work Phone: Comment on above: PATIENT WAS FASTINGP ERFORMED BY: MARCOS GatoSharona Ogjwxt3372 [facility] [id number] MCH (RBC) [Entitic mass] 31.6 pg Normal 26.6-33.0 [facility]; [facility] Work Phone: Comment on above: PATIENT WAS FASTINGP ERFORMED BY: MARCOS Schmidt Solkmq0773 [facility] [id number] MCHC (RBC) [Mass/Vol] 34.0 g/dL Normal 31.5-35.7 [facility] prehensive Internal Medicine; [facility] Work Phone: Comment on above: PATIENT WAS FASTINGP ERFORMED BY: MARCOS Zuluaga Mbpfcv6418 [facility] [id number] MCV (RBC) [Entitic vol] 93 fL Normal 79-97 C omprehensive Internal Medicine; [facility] Work Phone: Comment on above: PATIENT WAS FASTINGP ERFORMED BY: LabSaint [facility] Nndurs8981 [facility] [id number] Monocytes (Bld) [#/Vol] 0.6 {x10E3/uL} Normal 0.1-0.9 [facility]; [facility] Work Phone: Comment on above: PATIENT WAS FASTINGP ERFORMED BY: GatoSaint [facility] Qumbea6[address] [facility] [id number] Monocytes (Bld) [#/Vol] 0.6 10*3/uL Normal 0.1-0.9 [facility]; [facility] Work Phone: Monocytes/100 WBC (Bld) 8 % Normal [facility]; [facility] Work Phone: Comment on above: PATIENT WAS FASTINGP ERFORMED BY: LabSaint [facility] Cvfyma6753 [facility] [id number] Neutrophils (Bld) [#/Vol] 5.2 {x10E3/uL} Normal 1.4-7.0 [facility]; [facility] Work Phone: Comment on above: PATIENT WAS FASTINGP ERFORMED BY: LabCo Yhldrl6985 [facility] [id number] Neutrophils (Bld) [#/Vol] 5.2 10*3/uL Normal 1.4-7.0 [facility]; [facility] Work Phone: Neutrophils/100 WBC (Bld) 66 % Normal [facility]; [facility] Work Phone: Comment on above: PATIENT WAS FASTINGP ERFORMED BY: MARCOS Roxana Cruz6370 [facility] [id number] Platelets (Bld) [#/Vol] 278 {x10E3/uL} Normal 150-450 [facility]; [facility] Work Phone: Comment on above: PATIENT WAS FASTINGP ERFORMED BY: MARCOS Zan Ewihbb9055 [facility] [id number] Platelets (Bld) [#/Vol] 278 10*3/uL Normal 150-450 [facility]; [facility] Work Phone: RBC (Bld) [#/Vol] 4.37 {x10E6/uL} Normal 3.77-5.28 Co mprehensive [facility]; [facility] Work Phone: Comment on above: PATIENT WAS FASTINGP ERFORMED BY: MARCOS GatoAntonio Xecgpq2379 [facility] [id number] RBC (Bld) [#/Vol] 4.37 10*6/uL Normal 3.77-5.28 Compr ehensive Internal Medicine; [facility] Work Phone: WBC (Bld) [#/Vol] 8.0 {x10E3/uL} Normal 3.4-10.8 [facility] prehensive Internal Medicine; [facility] Work Phone: Comment on above: PATIENT WAS FASTINGP ERFORMED BY: MARCOS Zan Hmnpdn1867 [facility] [id number] WBC (Bld) [#/Vol] 8.0 10*3/uL Normal 3.4-10.8 Compre hensive Internal Medicine; [facility] Work Phone: Lipid Panel ([id number])Ordered B y: Slag Mixer on 08-23-2020 Cholesterol [Mass/Vol] 189 mg/dL Normal 100-199 Co mprehensive [facility]; [facility] Work Phone: Comment on above: PATIENT WAS FASTINGP ERFORMED BY: MARCOS GatoSaint [facility] Jgimhv4684 [facility] [id number] Cholesterol in HDL [Mass/Vol] 67 mg/dL Normal [facility]; [facility] Work Phone: Comment on above: PATIENT WAS FASTINGP ERFORMED BY: MARCOS [facility] Eazbif3988 [facility] [id number] Cholesterol in LDL/Cholesterol in HDL [Mass ratio] 1.6 {ratio} Normal 0.0-3.2 [facility]; [facility] Work Phone: Comment on above: LDL/HDL Ratio Men Wo men 1/2 Avg.Risk 1.0 1.5 Avg.Risk 3.6 3.2 2X Avg.Risk 6.2 5.0 3X Avg.Risk 8.0 6.1 PATIENT WAS FASTINGP ERFORMED BY: LabSaint [facility] Dlujzh3349 [facility] [id number] Triglyceride [Mass/Vol] 62 mg/dL Normal 0-149 [facility]erens[facility]; [facility] Work Phone: Comment on above: PATIENT WAS FASTINGP ERFORMED BY: LabCo Kshvqw8541 [facility] [id number] Lipid Panel (88105) 12 mg/dL Normal 5-40 Compr ensive Internal Medicine; [facility] Work Phone: Comment on above: PATIENT WAS FASTINGP ERFORMED BY: [facility] Ruxgys1410 [facility] [id number] Lipid Panel (20226) 110 mg/dL Abnormal 0-99 [facility]; [facility] Work Phone: Comment on above: PATIENT WAS FASTINGP ERFORMED BY: Lab[facility] Kyfzdi[address] [facility]in [place] [id number] Lipid Panel (45973) 1.6 {ratio} Normal 0.0-3.2 [facility]; [facility] Work Phone: Metabolic Panel, Comprehensi ve (17769)Ordered By: Slag Mixer on 08-23-2020 Albumin [Mass/Vol] 4.0 g/dL Normal 3.8-4.8 Compre hensive Internal Medicine; [facility] Work Phone: Comment on above: PATIENT WAS FASTINGP ERFORMED BY: MARCOS Cruz[address] [facility]bl[facility] [place] [id number] Albumin/Globulin [Mass ratio] 1.7 {ratio} Normal 1.2-2.2 [facility]; [facility] Work Phone: Comment on above: PATIENT WAS FASTINGP ERFORMED BY: MARCOS Cruz6370 [address]Dublin [place] [id number] ALP [Catalytic activity/Vol] 80 [iU]/L Normal 39-117 [facility]; [facility] Work Phone: Comment on above: PATIENT WAS FASTINGP ERFORMED BY: MARCOS Roxana Cruz[address]bl[address] [place] [id number] ALP [Catalytic activity/Vol] 80 U/L Normal 39-117 [facility]; [facility] Work Phone: ALT [Catalytic activity/Vol] 16 [iU]/L Normal 0-32 [facility]; [facility] Work Phone: Comment on above: PATIENT WAS FASTINGP ERFORMED BY: MARCOS Roxana Cruz[address] [facility] [id number] ALT [Catalytic activity/Vol] 16 U/L Normal 0-32 [facility]; [facility] Work Phone: AST [Catalytic activity/Vol] 14 [iU]/L Normal 0-40 [facility]; [facility] Work Phone: Comment on above: PATIENT WAS FASTINGP ERFORMED BY: MARCOS LabAntonio Zulmzw18[address] [facility]in [place] [id number] AST [Catalytic activity/Vol] 14 U/L Normal 0-40 [facility]; [facility] Work Phone: Bilirubin [Mass/Vol] 0.5 mg/dL Normal 0.0-1.2 [facility] Internal Medicine; [facility] Work Phone: Comment on above: PATIENT WAS FASTINGP ERFORMED BY: MARCOS [facility] Jetdac7339 [address] RoadDublin [place] [id number] Calcium [Mass/Vol] 9.3 mg/dL Normal 8.7-10.2 [facility] Internal Medicine; [facility] Work Phone: Comment on above: PATIENT WAS FASTINGP ERFORMED BY: CB [facility] Cvsexu9134 [address] RoadDublin [place] [id number] Chloride [Moles/Vol] 105 mmol/L Normal 96-106 [facility] rehensive Internal Medicine; [facility] Work Phone: Comment on above: PATIENT WAS FASTINGP ERFORMED BY: CB [facility] Nyzckr6200 [address] RoadDublin [place] [id number] CO2 [Moles/Vol] 24 mmol/L Normal 20-29 [facility] Internal Medicine; [facility] Work Phone: Comment on above: PATIENT WAS FASTINGP ERFORMED BY: CB [facility] Dvxkhs0947 [address] RoadDublin [place] [id number] Creatinine [Mass/Vol] 0.75 mg/dL Normal 0.57-1.00 [facility]; [facility] Work Phone: Comment on above: PATIENT WAS FASTINGP ERFORMED BY: CB [facility] Lkcbod7109 [address] RoadDublin [place] [id number] GFR/1.73 sq M predicted among blacks CKD-EPI (S/P/Bld) [Vol rate/Area] 109 mL/min/1.73 Normal [facility]; [facility] Work Phone: Comment on above: PATIENT WAS FASTINGP ERFORMED BY: CB [facility] Hcrole7292 [address] RoadDublin [place] [id number] GFR/1.73 sq M predicted among non-blacks CKD-EPI (S/P/Bld) [Vol rate/Area] 95 mL/min/1.73 Normal [facility]; [facility] Work Phone: Comment on above: PATIENT WAS FASTINGP ERFORMED BY: CB [facility] Kekamn7940 [address]Dublin [place] [id number] Globulin (S) [Mass/Vol] 2.4 g/dL Normal 1.5-4.5 C omprehensive Internal Medicine; [facility] Work Phone: Comment on above: PATIENT WAS FASTINGP ERFORMED BY: MARCOS [facility] Ncyfcb4384 [address] RoadDublin [place] [id number] Glucose [Mass/Vol] 103 mg/dL Abnormal 65-99 [facility]; [facility] Work Phone: Comment on above: PATIENT WAS FASTINGP ERFORMED BY: CB [facility] Otykzu1891 [address]Dublin [place] [id number] Potassium [Moles/Vol] 4.5 mmol/L Normal 3.5-5.2 [facility] prehensive Internal Medicine; [facility] Work Phone: Comment on above: PATIENT WAS FASTINGP ERFORMED BY: MARCOS [facility] Nuzshy3505 [address] RoadDublin [place] [id number] Protein [Mass/Vol] 6.4 g/dL Normal 6.0-8.5 [facility] Internal Medicine; [facility] Work Phone: Comment on above: PATIENT WAS FASTINGP ERFORMED BY: MARCOS [facility] Ljtyjh2382 [address] RoadDublin [place] [id number] Sodium [Moles/Vol] 142 mmol/L Normal 134-144 [facility] Internal Medicine; [facility] Work Phone: Comment on above: PATIENT WAS FASTINGP ERFORMED BY: MARCOS [facility] Qqghli8273 [address] RoadDublin [place] [id number] Urea nitrogen [Mass/Vol] 11 mg/dL Normal 6-24 [facility]; [facility] Work Phone: Comment on above: PATIENT WAS FASTINGP ERFORMED BY: CB [facility] Xcasis8441 [address]Dublin [place] [id number] Urea nitrogen/Creatinine [Mass ratio] 15 mg/mg Normal 9-23 [facility]; [facility] Work Phone: Comment on above: PATIENT WAS FASTINGP ERFORMED BY: CB [facility] Itgyli0432 [address] RoadDublin [place] [id number] TSH ([id number])Ordered By: TapImmunedez m Acid Tester on 08-23-2020 TSH Qn 1.500 {uIU/mL} Normal 0.450-4.50 0 [facility]; [facility] Work Phone: Comment on above: PATIENT WAS FASTINGP ERFORMED BY: [facility] OrthopaedicsCare One at Rar[facility] Medical CenterHeamfl5226 [facility] [id number] SARS-CoV-2 Antibody, IgG (86 [id number])Ordered By: Slag Mixer on 04-16-2020 SARS-CoV-2 Antibody, IgG (06879) METH3 Normal [facility] Work Phone: Comment on above: See DiaSorin SARS-Co V-2 Ab, IgG Test(s) 359681-[id number]- CoV-2 Antibody, IgG; [id number]-LfuFnnzz SARS-CoV-2 Ab, IgGhas not been FDA cleared or approved. This test hasbeen authorized by FDA under an Emergency Use Authorization(EUA). This test is only authorized for the duration of thedeclaration that circumstances exist justifying the authorizationof emergency use of in vitro diagnostics for detection and/ordiagnosis of COVID-19 under Section 564(b)(1) of the Act, 21U.S.C. 360bbb-3(b)(1), unless the authorization is terminated orrevoked sooner. This test has been authorized only for detectingthe presence of antibodies against SARS-CoV-2, not for any otherviruses or pathogens.PATIENT NOT FASTINGPERFORMED BY: Simbol MaterialsCoCare One at Rar[facility] Medical CenterNgdijj4340 [facility] [id number] CALCIFEDIOL (78406)Ordered B y: Slag Mixer on 11-08-2019 25-Hydroxyvitamin D2+25-Hydroxyvitamin D3 [Mass/Vol] 74.5 ng/mL Normal 30.0-100.0 [facility] Work Phone: Comment on above: Vitamin D deficiency has been defined by the [facility] and an Endocrine Society practice guideline as alevel of serum 25-OH vitamin D less than 20 ng/mL (1,2).The Endocrine Society went on to further define vitamin Dinsufficiency as a level between 21 and 29 ng/mL (2).1. IOM ([facility]). 2010. Dietary reference intakes for calcium and D. [place]: The National Academies Press.2. Ashwini MF, Luis NC, Keanu KAY, et al. Evaluation, treatment, and prevention of vitamin D deficiency: an Endocrine Society clinical practice guideline. JCEM. 2010; 96(7):1911-30. PATIENT WAS FASTINGP ERFORMED BY: CB [facility] Ubvubo5307 [address] RoadDublin [place] [id number] CBC & PLATELETS (AUTO) ([id number] [id number])Ordered By: Slag Mixer on 11-08-2019 Erythrocyte distribution width (RBC) [Ratio] 12.6 % Normal 11.7-15.4 [facility] Internal Medicine Work Phone: Comment on above: PATIENT WAS FASTINGP ERFORMED BY: CB [facility] Oqeatd3548 [address] RoadDublin [place] [id number] Hematocrit (Bld) [Volume fraction] 40.4 % Normal 34.0-46.6 [facility] Internal Medicine Work Phone: Comment on above: PATIENT WAS FASTINGP ERFORMED BY: [facility] Rhaoom5571 [address] RoadDublin [place] [id number] Hemoglobin (Bld) [Mass/Vol] 13.1 g/dL Normal 11.1-15.9 [facility] Internal Medicine Work Phone: Comment on above: PATIENT WAS FASTINGP ERFORMED BY: [facility] Dllvks5742 [address] RoadDublin [place] [id number] MCH (RBC) [Entitic mass] 29.6 pg Normal 26.6-33.0 [facility] Internal Medicine Work Phone: Comment on above: PATIENT WAS FASTINGP ERFORMED BY: CB [facility] Mcvrlf1586 [address] RoadDublin [place] [id number] MCHC (RBC) [Mass/Vol] 32.4 g/dL Normal 31.5-35.7 [facility] Internal Medicine Work Phone: Comment on above: PATIENT WAS FASTINGP ERFORMED BY: CB [facility] Ntxcta0459 [address] RoadDublin [place] [id number] MCV (RBC) [Entitic vol] 91 fL Normal 79-97 C omprehensive Internal Medicine Work Phone: Comment on above: PATIENT WAS FASTINGP ERFORMED BY: MARCOS HoskinsSaint [facility] Alzctg9156 [facility] [id number] Platelets (Bld) [#/Vol] 259 {x10E3/uL} Normal 150-450 [facility] Work Phone: Comment on above: PATIENT WAS FASTINGP ERFORMED BY: [place] [id number] [facility] [id number] Platelets (Bld) [#/Vol] 259 10*3/uL Normal 150-450 [facility]; [facility] Work Phone: RBC (Bld) [#/Vol] 4.42 {x10E6/uL} Normal 3.77-5.28 Co mprehensive [facility] Work Phone: Comment on above: PATIENT WAS FASTINGP ERFORMED BY: MARCOS [place] 7092770 [facility] [id number] RBC (Bld) [#/Vol] 4.42 10*6/uL Normal 3.77-5.28 Compr ehensive Internal Medicine; [facility] Work Phone: WBC (Bld) [#/Vol] 6.3 {x10E3/uL} Normal 3.4-10.8 [facility] prehensive Internal Medicine Work Phone: Comment on above: PATIENT WAS FASTINGP ERFORMED BY: [facility]6370 [facility] [id number] WBC (Bld) [#/Vol] 6.3 10*3/uL Normal 3.4-10.8 Compre [facility] Internal Medicine; [facility] Work Phone: HGB A1C ([id number])Ordered By: Sergio ystem Acid Tester on 11-08-2019 HbA1c (Bld) [Mass fraction] 5.6 % Normal 4.8-5.6 [facility] Work Phone: Comment on above: . Prediabetes: 5.7 - 6.4 Diabetes: >6.4 Glycemic control for adults with diabetes: <7.0 PATIENT WAS FASTINGP ERFORMED BY: MARCOS [facility] Dvogqs3028 [address] RoadDublin [place] [id number] METABOLIC PANEL, BRENDA JOHNSON ([id number])Ordered By: Slag Mixer on 11-08-2019 Albumin [Mass/Vol] 4.3 g/dL Normal 3.8-4.8 [facility] Internal Medicine Work Phone: Comment on above: PATIENT WAS FASTINGP ERFORMED BY: CB [facility] Pogejx0169 [address] RoadDublin [place] [id number] Albumin/Globulin [Mass ratio] 1.7 {ratio} Normal 1.2-2.2 [facility] Work Phone: Comment on above: PATIENT WAS FASTINGP ERFORMED BY: MARCOS [facility] Pslpqv4651 [address] RoadDublin [place] [id number] ALP [Catalytic activity/Vol] 78 [iU]/L Normal 39-117 [facility] Work Phone: Comment on above: PATIENT WAS FASTINGP ERFORMED BY: CB [facility] Fqltxz2090 [address]Dublin [place] [id number] ALP [Catalytic activity/Vol] 78 U/L Normal 39-117 [facility]; [facility] Work Phone: ALT [Catalytic activity/Vol] 16 [iU]/L Normal 0-32 [facility] Work Phone: Comment on above: PATIENT WAS FASTINGP ERFORMED BY: CB [facility] Mxnpnz3251 [address] RoadDublin [place] [id number] ALT [Catalytic activity/Vol] 16 U/L Normal 0-32 [facility]; [facility] Work Phone: AST [Catalytic activity/Vol] 16 [iU]/L Normal 0-40 [facility] Work Phone: Comment on above: PATIENT WAS FASTINGP ERFORMED BY: CB [facility] Emdvvp4506 [address] RoadDublin [place] [id number] AST [Catalytic activity/Vol] 16 U/L Normal 0-40 [facility]; [facility] Work Phone: Bilirubin [Mass/Vol] 0.5 mg/dL Normal 0.0-1.2 [facility] Phone: Comment on above: PATIENT WAS FASTINGP ERFORMED BY: MARCOS [facility] Reukpx0816 [address] RoadDublin [place] [id number] Calcium [Mass/Vol] 8.9 mg/dL Normal 8.7-10.2 [facility] Internal Medicine Work Phone: Comment on above: PATIENT WAS FASTINGP ERFORMED BY: CB [facility] Loxkmo8375 [address] RoadDublin [place] [id number] Chloride [Moles/Vol] 104 mmol/L Normal 96-106 [facility] Work Phone: Comment on above: PATIENT WAS FASTINGP ERFORMED BY: MARCOS [facility] Ksfzxl7634 [address] RoadDublin [place] [id number] CO2 [Moles/Vol] 22 mmol/L Normal 20-29 [facility] Internal Medicine Work Phone: Comment on above: PATIENT WAS FASTINGP ERFORMED BY: CB [facility] Dpynyi6252 [address] RoadDublin [place] [id number] Creatinine [Mass/Vol] 0.67 mg/dL Normal 0.57-1.00 [facility] Internal Medicine Work Phone: Comment on above: PATIENT WAS FASTINGP ERFORMED BY: MARCOS [facility] Dcsmfh1723 [address] RoadDublin [place] [id number] GFR/1.73 sq M predicted among blacks CKD-EPI (S/P/Bld) [Vol rate/Area] 121 mL/min/1.73 Normal [facility] Work Phone: Comment on above: PATIENT WAS FASTINGP ERFORMED BY: CB [facility] Vvdqqv8528 [address]Dublin [place] [id number] GFR/1.73 sq M predicted among non-blacks CKD-EPI (S/P/Bld) [Vol rate/Area] 105 mL/min/1.73 Normal [facility] Work Phone: Comment on above: PATIENT WAS FASTINGP ERFORMED BY: CB [facility] Jxfhqn8169 [address] RoadDublin [place] [id number] Globulin (S) [Mass/Vol] 2.5 g/dL Normal 1.5-4.5 [facility] Internal Medicine Work Phone: Comment on above: PATIENT WAS FASTINGP ERFORMED BY: MARCOS [facility] Vdyuhk9072 [address] RoadDublin [place] [id number] Glucose [Mass/Vol] 103 mg/dL Abnormal 65-99 [facility] Internal Medicine Work Phone: Comment on above: PATIENT WAS FASTINGP ERFORMED BY: MARCOS [facility] Udnkvi0940 [address]Dublin [place] [id number] Potassium [Moles/Vol] 4.3 mmol/L Normal 3.5-5.2 [facility] Internal Medicine Work Phone: Comment on above: PATIENT WAS FASTINGP ERFORMED BY: MARCOS LabAntonio MakiMbhzrf1992 [address] RoadDublin [place] [id number] Protein [Mass/Vol] 6.8 g/dL Normal 6.0-8.5 [facility] Internal Medicine Work Phone: Comment on above: PATIENT WAS FASTINGP ERFORMED BY: MARCOS LabAntonio MakiWfbzcp4608 [address] RoadDublin [place] [id number] Sodium [Moles/Vol] 140 mmol/L Normal 134-144 [facility] Internal Medicine Work Phone: Comment on above: PATIENT WAS FASTINGP ERFORMED BY: MARCOS [facility] Aqjpkk3323 [address]Dublin [place] [id number] Urea nitrogen [Mass/Vol] 12 mg/dL Normal 6-24 [facility] Internal Medicine Work Phone: Comment on above: PATIENT WAS FASTINGP ERFORMED BY: MARCOS [facility] Dgruaa3078 [address] RoadDublin [place] [id number] Urea nitrogen/Creatinine [Mass ratio] 18 mg/mg Normal 9-23 [facility] Work Phone: Comment on above: PATIENT WAS FASTINGP ERFORMED BY: MARCOS [facility] Kcfggd6176 [address]Dublin [place] [id number] TSH (THYROID STIMULATING HOR XU) ([id number])Ordered By: Slag Mixer on 11-08-2019 TSH Qn 1.540 {uIU/mL} Normal 0.450-4.50 0 [facility] Work Phone: Comment on above: PATIENT WAS FASTINGP ERFORMED BY: MARCOS PNMsoftCarePartners Rehabilitation Hospital [id number] CALCIFEDIOL (17677)Ordered B y: Slag Mixer on 07-28-2019 25-Hydroxyvitamin D2+25-Hydroxyvitamin D3 [Mass/Vol] 59.6 ng/mL Normal 30.0-100.0 [facility] Work Phone: Comment on above: Vitamin D deficiency has been defined by the [facility] and an Endocrine Society practice guideline as alevel of serum 25-OH vitamin D less than 20 ng/mL (1,2).The Endocrine Society went on to further define vitamin Dinsufficiency as a level between 21 and 29 ng/mL (2).1. IOM ([facility]). 2010. Dietary reference intakes for calcium and D. [place]: The National Academies Press.2. Ashwini MF, Luis NC, Keanu KAY, et al. Evaluation, treatment, and prevention of vitamin D deficiency: an Endocrine Society clinical practice guideline. JCEM. 2010; 96(7):1911-30. PATIENT NOT FASTINGP ERFORMED BY: Amind6370 [address] [facility] [id number] HGB A1C ([id number])Ordered By: Sergio ystem Acid Tester on 07-28-2019 HbA1c (Bld) [Mass fraction] 5.5 % Normal 4.8-5.6 [facility] Work Phone: Comment on above: . Prediabetes: 5.7 - 6.4 Diabetes: >6.4 Glycemic control for adults with diabetes: <7.0 PATIENT NOT FASTINGP ERFORMED BY: Amind6[address] [facility] [place] [id number] Rapid Flu (39043 x 2)Ordered By: Cande Bach on 06-27-2019 FLUAV Ag IA Ql (Throat) Negative Normal C omprehensive [facility] Work Phone: Comment on above: Negative FLUAV Ag IA Ql (Throat) Negative Normal C [facility]; [facility] Work Phone: CBC, Platelets & Auto Diff ( [id number])Ordered By: Slag Mixer on 04-27-2019 Basophils (Bld) [#/Vol] 0.0 {x10E3/uL} Normal 0.0-0.2 [facility] Work Phone: Comment on above: PATIENT NOT FASTINGP ERFORMED BY: CB [facility] Xdtjbi7305 [address] RoadSelect Specialty Hospital - Durhamin [place] [id number] Basophils (Bld) [#/Vol] 0.0 10*3/uL Normal 0.0-0.2 [facility]; [facility] Work Phone: Basophils/100 WBC (Bld) 1 % Normal C [facility] Work Phone: Comment on above: PATIENT NOT FASTINGP ERFORMED BY: CB [facility] Lkymqs9520 [address] Get SatisfactionSelect Specialty Hospital - Durhamin [place] [id number] Eosinophils (Bld) [#/Vol] 0.2 {x10E3/uL} Normal 0.0-0.4 [facility] Work Phone: Comment on above: PATIENT NOT FASTINGP ERFORMED BY: CB [facility] Yrkyvm7716 [address] Get SatisfactionECU [facility] [id number] Eosinophils (Bld) [#/Vol] 0.2 10*3/uL Normal 0.0-0.4 [facility]; [facility] Work Phone: Eosinophils/100 WBC (Bld) 3 % Normal [facility] Work Phone: Comment on above: PATIENT NOT FASTINGP ERFORMED BY: CB [facility] Ozkufv3572 [address] [facility] [id number] Erythrocyte distribution width (RBC) [Ratio] 12.6 % Normal 12.3-15.4 [facility] Work Phone: Comment on above: PATIENT NOT FASTINGP ERFORMED BY: CB [facility] Amldlk1038 [address] [facility] [id number] Hematocrit (Bld) [Volume fraction] 38.9 % Normal 34.0-46.6 [facility] Work Phone: Comment on above: PATIENT NOT FASTINGP ERFORMED BY: MARCOS Cruz6370 [facility] [id number] Hemoglobin (Bld) [Mass/Vol] 13.7 g/dL Normal 11.1-15.9 [facility] Work Phone: Comment on above: PATIENT NOT FASTINGP ERFORMED BY: LabCo Mhckid5388 [facility] [id number] Immature granulocytes (Bld) [#/Vol] 0.0 {x10E3/uL} Normal 0.0-0.1 [facility] Work Phone: Comment on above: PATIENT NOT FASTINGP ERFORMED BY: MARCOS GatoSaint [facility] Zhocva0377 [facility] [id number] Immature granulocytes (Bld) [#/Vol] 0.0 10*3/uL Normal 0.0-0.1 [facility]; [facility] Work Phone: Immature granulocytes/100 WBC (Bld) 0 % Normal [facility] Work Phone: Comment on above: PATIENT NOT FASTINGP ERFORMED BY: GatoCo Tkqoqk0935 [facility] [id number] Lymphocytes (Bld) [#/Vol] 1.6 {x10E3/uL} Normal 0.7-3.1 [facility] Work Phone: Comment on above: PATIENT NOT FASTINGP ERFORMED BY: LabCoAndrew Ville 4283870 [facility] [id number] Lymphocytes (Bld) [#/Vol] 1.6 10*3/uL Normal 0.7-3.1 [facility]; [facility] Work Phone: Lymphocytes/100 WBC (Bld) 24 % Normal [facility] Work Phone: Comment on above: PATIENT NOT FASTINGP ERFORMED BY: LabTrinity [facility] Hospital6370 [facility] Instituteblin [place] [id number] MCH (RBC) [Entitic mass] 31.9 pg Normal 26.6-33.0 [facility] Internal Medicine Work Phone: Comment on above: PATIENT NOT FASTINGP ERFORMED BY: MARCOS [facility] Sdaakp2945 [address]Dublin [place] [id number] MCHC (RBC) [Mass/Vol] 35.2 g/dL Normal 31.5-35.7 [facility] Centerensive Internal [facility] Work Phone: Comment on above: PATIENT NOT FASTINGP ERFORMED BY: CB [facility] Ezspnp6078 [address]ences [facility] Hospitalblin [place] [id number] MCV (RBC) [Entitic vol] 91 fL Normal 79-97 [facility]erens[facility] Internal [facility] Work Phone: Comment on above: PATIENT NOT FASTINGP ERFORMED BY: LabSaint [facility] Sstjzg9270 [address] [facility] [id number] Monocytes (Bld) [#/Vol] 0.8 {x10E3/uL} Normal 0.1-0.9 [facility] Work Phone: Comment on above: PATIENT NOT FASTINGP ERFORMED BY: LabCo Hbfapf4152 [address] [facility]in [place] [id number] Monocytes (Bld) [#/Vol] 0.8 10*3/uL Normal 0.1-0.9 [facility]; [facility] Work Phone: Monocytes/100 WBC (Bld) 12 % Normal C [facility] centerensive Internal [facility] Work Phone: Comment on above: PATIENT NOT FASTINGP ERFORMED BY: CB [facility] Pvddfn7744 [address] RoadDublin [place] [id number] Neutrophils (Bld) [#/Vol] 4.0 {x10E3/uL} Normal 1.4-7.0 [facility] Work Phone: Comment on above: PATIENT NOT FASTINGP ERFORMED BY: CB [facility] Kimmnd9594 [address] RoadDublin [place] [id number] Neutrophils (Bld) [#/Vol] 4.0 10*3/uL Normal 1.4-7.0 [facility]; [facility] Work Phone: Neutrophils/100 WBC (Bld) 60 % Normal [facility] Work Phone: Comment on above: PATIENT NOT FASTINGP ERFORMED BY: CB [facility] Jyqwgi2708 [address] Get SatisfactionDuin [place] [id number] Platelets (Bld) [#/Vol] 220 {x10E3/uL} Normal 150-450 [facility] Work Phone: Comment on above: PATIENT NOT FASTINGP ERFORMED BY: CB [facility] Urwyvo4484 [address] Get SatisfactionECU [facility] Hospital [id number] Platelets (Bld) [#/Vol] 220 10*3/uL Normal 150-450 [facility]; [facility] Work Phone: RBC (Bld) [#/Vol] 4.30 {x10E6/uL} Normal 3.77-5.28 [facility] Internal Medicine Work Phone: Comment on above: PATIENT NOT FASTINGP ERFORMED BY: [facility] Irnwyq3566 [facility] [id number] RBC (Bld) [#/Vol] 4.30 10*6/uL Normal 3.77-5.28 [facility] Internal Medicine; [facility] Work Phone: WBC (Bld) [#/Vol] 6.6 {x10E3/uL} Normal 3.4-10.8 [facility] Internal Medicine Work Phone: Comment on above: PATIENT NOT FASTINGP ERFORMED BY: CB [facility] Wzzbzy7923 [facility] [id number] WBC (Bld) [#/Vol] 6.6 10*3/uL Normal 3.4-10.8 [facility]; [facility] Work Phone: Metabolic Panel, Comprehensi ve ([id number])Ordered By: Slag Mixer on 04-27-2019 Albumin [Mass/Vol] 4.0 g/dL Normal 3.5-5.5 [facility] Internal Medicine Work Phone: Comment on above: PATIENT NOT FASTINGP ERFORMED BY: CB [facility] Hnrvmb7403 [address] RoadDublin [place] [id number] Albumin/Globulin [Mass ratio] 1.4 {ratio} Normal 1.2-2.2 [facility] Work Phone: Comment on above: PATIENT NOT FASTINGP ERFORMED BY: CB [facility] Sgtsoa5681 [address] RoadDublin [place] [id number] ALP [Catalytic activity/Vol] 99 [iU]/L Normal 39-117 [facility] Work Phone: Comment on above: PATIENT NOT FASTINGP ERFORMED BY: CB [facility] Bzuihl7860 [address] RoadDublin [place] [id number] ALP [Catalytic activity/Vol] 99 U/L Normal 39-117 [facility]; [facility] Work Phone: ALT [Catalytic activity/Vol] 18 [iU]/L Normal 0-32 [facility] Work Phone: Comment on above: PATIENT NOT FASTINGP ERFORMED BY: CB [facility] Vobwem4780 [address] RoadDublin [place] [id number] ALT [Catalytic activity/Vol] 18 U/L Normal 0-32 [facility]; [facility] Work Phone: AST [Catalytic activity/Vol] 20 [iU]/L Normal 0-40 [facility] Work Phone: Comment on above: PATIENT NOT FASTINGP ERFORMED BY: CB [facility] Xjjcbz3808 [address] RoadDublin [place] [id number] AST [Catalytic activity/Vol] 20 U/L Normal 0-40 [facility]; [facility] Work Phone: Bilirubin [Mass/Vol] 0.3 mg/dL Normal 0.0-1.2 [facility] Internal Medicine Work Phone: Comment on above: PATIENT NOT FASTINGP ERFORMED BY: CB [facility] Hxqqnr9424 [address] RoadDublin [place] [id number] Calcium [Mass/Vol] 9.1 mg/dL Normal 8.7-10.2 [facility] Internal Medicine Work Phone: Comment on above: PATIENT NOT FASTINGP ERFORMED BY: CB [facility] Ffaeyy4838 [address] RoadDublin [place] [id number] Chloride [Moles/Vol] 103 mmol/L Normal 96-106 Comp rehensive Internal Medicine Work Phone: Comment on above: PATIENT NOT FASTINGP ERFORMED BY: CB [facility] Qbwvwx2099 [address] RoadDublin [place] [id number] CO2 [Moles/Vol] 26 mmol/L Normal 20-29 Comprehen [facility] Internal [facility] Work Phone: Comment on above: PATIENT NOT FASTINGP ERFORMED BY: CB [facility] Kithsx4969 [address] RoadDublin [place] [id number] Creatinine [Mass/Vol] 0.76 mg/dL Normal 0.57-1.00 [facility]erens[facility] Work Phone: Comment on above: PATIENT NOT FASTINGP ERFORMED BY: CB [facility] Stugmp4914 [address] RoadDublin [place] [id number] GFR/1.73 sq M predicted among blacks CKD-EPI (S/P/Bld) [Vol rate/Area] 108 mL/min/1.73 Normal [facility] Work Phone: Comment on above: PATIENT NOT FASTINGP ERFORMED BY: CB [facility] Jnkuex0124 [address] RoadDublin [place] [id number] GFR/1.73 sq M predicted among non-blacks CKD-EPI (S/P/Bld) [Vol rate/Area] 94 mL/min/1.73 Normal [facility] Work Phone: Comment on above: PATIENT NOT FASTINGP ERFORMED BY: CB [facility] Zqjioj6258 [address] RoadDublin [place] [id number] Globulin (S) [Mass/Vol] 2.8 g/dL Normal 1.5-4.5 C omprehensive Internal Medicine Work Phone: Comment on above: PATIENT NOT FASTINGP ERFORMED BY: CB [facility] Fgqkbr3625 [address] RoadDublin [place] [id number] Glucose [Mass/Vol] 83 mg/dL Normal 65-99 [facility] Internal Medicine Work Phone: Comment on above: PATIENT NOT FASTINGP ERFORMED BY: MARCOS [facility] Yfsfvu1395 [address] RoadDublin [place] [id number] Potassium [Moles/Vol] 4.2 mmol/L Normal 3.5-5.2 [facility] Internal Medicine Work Phone: Comment on above: PATIENT NOT FASTINGP ERFORMED BY: CB [facility] Bkmzhe4807 [address] RoadDublin [place] [id number] Protein [Mass/Vol] 6.8 g/dL Normal 6.0-8.5 [facility] Internal Medicine Work Phone: Comment on above: PATIENT NOT FASTINGP ERFORMED BY: MARCOS [facility] Rkxfyw3489 [address] RoadDublin [place] [id number] Sodium [Moles/Vol] 141 mmol/L Normal 134-144 [facility] Internal Medicine Work Phone: Comment on above: PATIENT NOT FASTINGP ERFORMED BY: MARCOS [facility] Cufwli4151 [address] RoadDublin [place] [id number] Urea nitrogen [Mass/Vol] 11 mg/dL Normal 6-24 [facility] Internal Medicine Work Phone: Comment on above: PATIENT NOT FASTINGP ERFORMED BY: MARCOS [facility] Ctuhbu3344 [address] RoadDublin [place] [id number] Urea nitrogen/Creatinine [Mass ratio] 14 mg/mg Normal 9-23 [facility] Internal Medicine Work Phone: Comment on above: PATIENT NOT FASTINGP ERFORMED BY: CB [facility] Fcudax1737 [address] RoadDublin [place] [id number] TSH ([id number])Ordered By: Derek Jefferson on 04-27-2019 TSH Qn 2.330 {uIU/mL} Normal 0.450-4.50 0 [facility] Internal Medicine Work Phone: Comment on above: PATIENT NOT FASTINGP ERFORMED BY: CB [facility] Jjuqtk2273 [address] RoadDublin [place] [id number] HGB A1C ([id number])Ordered By: S ystem Acid Tester on 04-20-2019 HbA1c (Bld) [Mass fraction] 5.5 % Normal 4.8-5.6 [facility] Work Phone: Comment on above: . Prediabetes: 5.7 - 6.4 Diabetes: >6.4 Glycemic control for adults with diabetes: <7.0 PATIENT NOT FASTINGP ERFORMED BY: Socket MobileCarePartners Rehabilitation Hospital [id number] CALCIFEDIOL ([id number])Ordered B y: Slag Mixer on 12-16-2018 25-Hydroxyvitamin D2+25-Hydroxyvitamin D3 mass conc 40.1 ng/mL Normal 30.0-100.0 [facility] Work Phone: Comment on above: Vitamin D deficiency has been defined by the [facility] and an Endocrine Society practice guideline as alevel of serum 25-OH vitamin D less than 20 ng/mL (1,2).The Endocrine Society went on to further define vitamin Dinsufficiency as a level between 21 and 29 ng/mL (2).1. IOM ([facility]). 2010. Dietary reference intakes for calcium and D. [place]: The National Academies Press.2. Ashwini MF, Luis SUAREZ, Keanu KAY, et al. Evaluation, treatment, and prevention of vitamin D deficiency: an Endocrine Society clinical practice guideline. JCEM. 2010; 96(7):1911-30. PATIENT WAS FASTINGP ERFORMED BY: Avegant70 YakimbiCarePartners Rehabilitation Hospital [id number] GLUCOSE ([id number])Ordered By: S eMetertem Acid Tester on 12-16-2018 Glucose mass conc 101 mg/dL Abnormal 65-99 Compreh ensive Internal Medicine Work Phone: Comment on above: PATIENT WAS FASTINGP ERFORMED BY: Avegant70 StalkthisECU Health [facility] Hospital [id number] HGB A1C (78231)Ordered By: S ystem Acid Tester on 12-16-2018 Hemoglobin A1c/Hemoglobin.total mass fraction (Bld) 5.6 % Normal 4.8-5.6 Comprehensiv e Internal Medicine Work Phone: Comment on above: . Prediabetes: 5.7 - 6.4 Diabetes: >6.4 Glycemic control for adults with diabetes: <7.0 PATIENT WAS FASTINGP ERFORMED BY: MARCOS LabCohamlet Jctsan6785 [address] RoadDublin [place] [id number] LIPID PANEL ([id number])Ordered B y: Slag Mixer on 12-16-2018 Cholesterol in HDL mass conc 64 mg/dL Normal [facility] Work Phone: Comment on above: PATIENT WAS FASTINGP ERFORMED BY: MARCOS LabAntonio MakiPaxewo2658 [address] RoadDublin [place] [id number] Cholesterol in LDL mass conc 114 mg/dL Abnormal 0-99 [facility] Work Phone: Comment on above: PATIENT WAS FASTINGP ERFORMED BY: MARCOS LabAntonio MakiIrxoio0883 [address] Get SatisfactionMidkiff [place] [id number] Cholesterol in LDL/Cholesterol in HDL mass ratio 1.8 {ratio} Normal 0.0-3.2 [facility] Work Phone: Comment on above: LDL/HDL Ratio Men Wo men 1/2 Avg.Risk 1.0 1.5 Avg.Risk 3.6 3.2 2X Avg.Risk 6.2 5.0 3X Avg.Risk 8.0 6.1 PATIENT WAS FASTINGP ERFORMED BY: MARCOS Makilin6370 [address] [facility] [place] [id number] Cholesterol in VLDL mass conc 13 mg/dL Normal 5-40 [facility] Work Phone: Comment on above: PATIENT WAS FASTINGP ERFORMED BY: MARCOS LabAntonio Taklzy6362 [address] [facility] HospitalDublin [place] [id number] Cholesterol mass conc 191 mg/dL Normal 100-199 Com prehensive Internal Medicine Work Phone: Comment on above: PATIENT WAS FASTINGP ERFORMED BY: MARCOS LabCohamlet Ohyqoe7356 [address] RoadDublin [place] [id number] Triglyceride mass conc 65 mg/dL Normal 0-149 Co mprehensive Internal Medicine Work Phone: Comment on above: PATIENT WAS FASTINGP ERFORMED BY: [facility] Mmbcpy7773 [address] [facility]blin [place] [id number] CALCIFEDIOL (08671)Ordered B y: Slag Mixer on 08-02-2018 25-Hydroxyvitamin D2+25-Hydroxyvitamin D3 mass conc 60.6 ng/mL Normal 30.0-100.0 [facility] Work Phone: Comment on above: Vitamin D deficiency has been defined by the [facility]cine and an Endocrine Society practice guideline as alevel of serum 25-OH vitamin D less than 20 ng/mL (1,2).The Endocrine Society went on to further define vitamin Dinsufficiency as a level between 21 and 29 ng/mL (2).1. IOM ([facility]). 2010. Dietary reference intakes for calcium and D. [place]: The National AcademCall Loop Press.2. Ashwini MF, Luis SUAREZ, Keanu KAY, et al. Evaluation, treatment, and prevention of vitamin D deficiency: an Endocrine Society clinical practice guideline. JCEM. 2010; 96(7):1911-30. PATIENT WAS FASTINGP ERFORMED BY: THERAVECTYS Hvdfqd8908 [address] [facility] [id number] CBC, Platelets & Auto Diff ( [id number])Ordered By: Slag Mixer on 08-02-2018 Basophils #/vol (Bld) 0.0 {x10E3/uL} Normal 0.0-0.2 [facility] Work Phone: Comment on above: PATIENT WAS FASTINGP ERFORMED BY: [facility] Rcitjw1283 [address] [facility]in [place] [id number] Basophils (Bld) [#/Vol] 0.0 10*3/uL Normal 0.0-0.2 [facility]; [facility] Work Phone: Basophils/100 WBC (Bld) 0 % Normal C omprehensive Internal Medicine Work Phone: Comment on above: PATIENT WAS FASTINGP ERFORMED BY: THERAVECTYS Ulnoix6784 [facility]encesLakeland [facility] Hospital [id number] Eosinophils #/vol (Bld) 0.2 {x10E3/uL} Normal 0.0-0.4 [facility] Work Phone: Comment on above: PATIENT WAS FASTINGP ERFORMED BY: MARCOS [facility] Eoznhh9883 [address] [facility] [id number] Eosinophils (Bld) [#/Vol] 0.2 10*3/uL Normal 0.0-0.4 [facility]; [facility] Work Phone: Eosinophils/100 WBC (Bld) 2 % Normal [facility] Work Phone: Comment on above: PATIENT WAS FASTINGP ERFORMED BY: MARCOS LabCo Eyysrq9931 [facility] [id number] Erythrocyte distribution width Ratio (RBC) 12.7 % Normal 12.3-15.4 [facility] Work Phone: Comment on above: PATIENT WAS FASTINGP ERFORMED BY: MARCOS LabSaint [facility] Ucbpds7826 [address] [facility] [id number] Hematocrit Volume Fraction (Bld) 36.1 % Normal 34.0-46.6 [facility] Work Phone: Comment on above: PATIENT WAS FASTINGP ERFORMED BY: MARCOS Lab[facility] Ayrmpk1403 [address] [facility] [id number] Hemoglobin mass conc (Bld) 12.8 g/dL Normal 11.1-15.9 [facility] Work Phone: Comment on above: PATIENT WAS FASTINGP ERFORMED BY: [facility] Egsjou3107 [address] [facility] [id number] Immature granulocytes #/vol (Bld) 0.0 {x10E3/uL} Normal 0.0-0.1 [facility] Work Phone: Comment on above: PATIENT WAS FASTINGP ERFORMED BY: LabCo Elvrci5270 [address] [facility] [id number] Immature granulocytes (Bld) [#/Vol] 0.0 10*3/uL Normal 0.0-0.1 [facility]; [facility] Work Phone: Immature granulocytes/100 WBC (Bld) 0 % Normal [facility] Work Phone: Comment on above: PATIENT WAS FASTINGP ERFORMED BY: MARCOS LabAntonio Cruz6370 [address] [facility] [place] [id number] Lymphocytes #/vol (Bld) 1.8 {x10E3/uL} Normal 0.7-3.1 [facility] Work Phone: Comment on above: PATIENT WAS FASTINGP ERFORMED BY: MARCOS LabSharona Iqzggx0773 [address]ences [facility] [id number] Lymphocytes (Bld) [#/Vol] 1.8 10*3/uL Normal 0.7-3.1 [facility]; [facility] Work Phone: Lymphocytes/100 WBC (Bld) 26 % Normal [facility] Work Phone: Comment on above: PATIENT WAS FASTINGP ERFORMED BY: MARCOS Makilin6370 [facility] [id number] MCH Entitic mass (RBC) 31.8 pg Normal 26.6-33.0 [facility] Internal Medicine Work Phone: Comment on above: PATIENT WAS FASTINGP ERFORMED BY: MARCOS LabAntonio MakiFsltmb1667 [facility] [id number] MCHC mass conc (RBC) 35.5 g/dL Normal 31.5-35.7 [facility] Internal Medicine Work Phone: Comment on above: PATIENT WAS FASTINGP ERFORMED BY: MARCOS LabAntonio MakiZsgigz5216 [facility] [id number] MCV Entitic volume (RBC) 90 fL Normal 79-97 [facility] Work Phone: Comment on above: PATIENT WAS FASTINGP ERFORMED BY: MARCOS LabAntonio MakiEocknh5583 [address] [facility] [place] [id number] Monocytes #/vol (Bld) 0.7 {x10E3/uL} Normal 0.1-0.9 [facility] Work Phone: Comment on above: PATIENT WAS FASTINGP ERFORMED BY: MARCOS LabCo Hhtsyu2761 [facility] [id number] Monocytes (Bld) [#/Vol] 0.7 10*3/uL Normal 0.1-0.9 [facility]; [facility] Work Phone: Monocytes/100 WBC (Bld) 10 % Normal [facility] Work Phone: Comment on above: PATIENT WAS FASTINGP ERFORMED BY: MARCOS [facility] Livdox8307 [facility] [id number] Neutrophils #/vol (Bld) 4.3 {x10E3/uL} Normal 1.4-7.0 [facility] Work Phone: Comment on above: PATIENT WAS FASTINGP ERFORMED BY: MARCOS [facility] Mcoztn2018 [facility] [id number] Neutrophils (Bld) [#/Vol] 4.3 10*3/uL Normal 1.4-7.0 [facility]; [facility] Work Phone: Neutrophils/100 WBC (Bld) 62 % Normal [facility] Work Phone: Comment on above: PATIENT WAS FASTINGP ERFORMED BY: MARCOS [facility] Unxpet1517 [facility] [id number] Platelets #/vol (Bld) 259 {x10E3/uL} Normal 150-379 [facility] Work Phone: Comment on above: PATIENT WAS FASTINGP ERFORMED BY: CB [facility] Iaovzr9864 [facility] [id number] Platelets (Bld) [#/Vol] 259 10*3/uL Normal 150-379 [facility]; [facility] Work Phone: RBC #/vol (Bld) 4.03 {x10E6/uL} Normal 3.77-5.28 [facility] Internal Medicine Work Phone: Comment on above: PATIENT WAS FASTINGP ERFORMED BY: MARCOS [facility] Nkizqh7138 [facility] [id number] RBC (Bld) [#/Vol] 4.03 10*6/uL Normal 3.77-5.28 [facility] Work Phone: WBC #/vol (Bld) 7.0 {x10E3/uL} Normal 3.4-10.8 [facility] Internal Medicine Work Phone: Comment on above: PATIENT WAS FASTINGP ERFORMED BY: MARCOS [facility] Nrmhap5498 [address] RoadDublin [place] [id number] WBC (Bld) [#/Vol] 7.0 10*3/uL Normal 3.4-10.8 [facility] Internal Medicine; [facility] Work Phone: MICROALBUMINOrdered By: Syst em Acid Tester on 08-02-2018 Albumin DL <= 20 mg/L mass conc (U) 22.0 ug/mL Normal [facility] Work Phone: Comment on above: PATIENT WAS FASTINGP ERFORMED BY: LabEverwise Aedbpi3287 [address] RoadSelect [facility]in [place] [id number] Albumin/Creatinine mass ratio (U) 6.2 {mg/g_creat} Normal 0.0-30.0 [facility] Work Phone: Comment on above: Normal: 0.0 - 30.0 A lbuminuria: 31.0 - 300.0 Clinical albuminuria: >300.0 PATIENT WAS FASTINGP ERFORMED BY: MARCOS LabEverwiserp Comawi7487 [address] [facility] HospitalEyeonain [place] [id number] Creatinine mass conc (U) 355.7 mg/dL Normal [facility] Work Phone: Comment on above: PATIENT WAS FASTINGP ERFORMED BY: LV Sensors LabEverwiserp Stfuzv3918 [address] [facility] [place] [id number] Metabolic Panel, Comprehensi ve ([id number])Ordered By: Slag Mixer on 08-02-2018 Albumin mass conc 4.3 g/dL Normal 3.5-5.[address] Internal Medicine Work Phone: Comment on above: PATIENT WAS FASTINGP ERFORMED BY: [facility] Jebhtq6839 [address] RoadDublin [place] [id number] Albumin/Globulin mass ratio 2.0 {ratio} Normal 1.2-2.2 [facility] Internal Medicine Work Phone: Comment on above: PATIENT WAS FASTINGP ERFORMED BY: MARCOS LabCohamlet Uchril2293 [address] Roadblin [place] [id number] ALP [Catalytic activity/Vol] 73 U/L Normal 39-117 [facility]; [facility] Internal Medicine Work Phone: ALP enzyme act/vol 73 [iU]/L Normal 39-117 [facility] Internal Medicine Work Phone: Comment on above: PATIENT WAS FASTINGP ERFORMED BY: MARCOS LabSaint [facility] Hzgkdc0500 [address] RoadSelect [facility]in [place] [id number] ALT [Catalytic activity/Vol] 11 U/L Normal 0-32 [facility] Internal Medicine; [facility] Internal Medicine Work Phone: ALT enzyme act/vol 11 [iU]/L Normal 0-32 [facility] Internal Medicine Work Phone: Comment on above: PATIENT WAS FASTINGP ERFORMED BY: MARCOS [facility] Kkyyhz6512 [address] [facility] [id number] AST [Catalytic activity/Vol] 17 U/L Normal 0-40 [facility] Internal Medicine; [facility] Internal Medicine Work Phone: AST enzyme act/vol 17 [iU]/L Normal 0-40 [facility] Internal Medicine Work Phone: Comment on above: PATIENT WAS FASTINGP ERFORMED BY: MARCOS LabSaint [facility] Yyjptd9104 [address] [facility] [id number] Bilirubin mass conc 0.6 mg/dL Normal 0.0-1.2 [facility] Internal Medicine Work Phone: Comment on above: PATIENT WAS FASTINGP ERFORMED BY: LabCo Bwvyxz9945 [address] RoadDublin [place] [id number] Calcium mass conc 8.8 mg/dL Normal 8.7-10.2 [facility] Internal Medicine Work Phone: Comment on above: PATIENT WAS FASTINGP ERFORMED BY: MARCSO LabCo Srakmc7529 [address] RoadSelect [facility]in [place] [id number] Chloride molar conc 103 mmol/L Normal 96-106 [facility] ensive Internal Medicine Work Phone: Comment on above: PATIENT WAS FASTINGP ERFORMED BY: MARCOS [facility] Nenult2689 [address] RoadDublin [place] [id number] CO2 molar conc 23 mmol/L Normal 20-29 Comprehens negar Internal Medicine Work Phone: Comment on above: PATIENT WAS FASTINGP ERFORMED BY: CB [facility] Raxjrt8522 [address] RoadSelect [facility]in [place] [id number] Creatinine mass conc 0.76 mg/dL Normal 0.57-1.00 Comp [facility] Internal Medicine Work Phone: Comment on above: PATIENT WAS FASTINGP ERFORMED BY: MARCOS [facility] Vfbkgh0267 [address] [facility] [place] [id number] GFR/1.73 sq M predicted among blacks CKD-EPI vol rate/area (S/P/Bld) 109 mL/min/1.73 Normal Comprehe [facility] Internal Medicine Work Phone: Comment on above: PATIENT WAS FASTINGP ERFORMED BY: MARCOS [facility] Rlcecy0783 [address] RoadSelect [facility]in [place] [id number] GFR/1.73 sq M predicted among non-blacks CKD-EPI vol rate/area (S/P/Bld) 94 mL/min/1.73 Normal [facility] Work Phone: Comment on above: PATIENT WAS FASTINGP ERFORMED BY: MARCOS [facility] Dedlzm0211 [address] [facility] [place] [id number] Globulin mass conc (S) 2.1 g/dL Normal 1.5-4.5 Co [facility] Internal Medicine Work Phone: Comment on above: PATIENT WAS FASTINGP ERFORMED BY: MARCOS [facility] Kwouqv9892 [address] RoadDublin [place] [id number] Glucose mass conc 83 mg/dL Normal 65-99 Compreh ensive Internal Medicine Work Phone: Comment on above: PATIENT WAS FASTINGP ERFORMED BY: MARCOS [facility] Wqfdhc2661 [address] Roadblin [place] [id number] Potassium molar conc 4.0 mmol/L Normal 3.5-5.2 Comp rehensive Internal Medicine Work Phone: Comment on above: PATIENT WAS FASTINGP ERFORMED BY: MARCOS GatoAntonio MakiXonzkw2350 [facility] [id number] Protein mass conc 6.4 g/dL Normal 6.0-8.5 Compreh ensive Internal Medicine Work Phone: Comment on above: PATIENT WAS FASTINGP ERFORMED BY: MARCOS GatoAntonio MakiByewpa3678 [facility] [id number] Sodium molar conc 141 mmol/L Normal 134-144 Compreh ensive Internal Medicine Work Phone: Comment on above: PATIENT WAS FASTINGP ERFORMED BY: MARCOS Makilin6370 [facility] [id number] Urea nitrogen mass conc 8 mg/dL Normal 6-24 C omprehensive Internal Medicine Work Phone: Comment on above: PATIENT WAS FASTINGP ERFORMED BY: MARCOS Makilin6370 [facility] [id number] Urea nitrogen/Creatinine mass ratio 11 mg/mg Normal 9-23 [facility] Work Phone: Comment on above: PATIENT WAS FASTINGP ERFORMED BY: MARCOS Makilin6370 [facility] [id number] Microscopic ExaminationOrder ed By: Slag Mixer on 08-02-2018 Bacteria LM.HPF #/area (Urine sed) Few Normal [facility] Work Phone: Comment on above: PATIENT WAS FASTINGP ERFORMED BY: MARCOS GatoSharonaCare One at Raritan Bay Medical CenterTjxrad5954 [facility] [id number] Crystals LM Nom (Urine sed) Amorphous Sediment Normal [facility] Work Phone: Comment on above: PATIENT WAS FASTINGP ERFORMED BY: MARCOS Makilin6370 [facility] [id number] Epithelial cells LM.HPF #/area (Urine sed) /[HPF] Abnormal 0 - 10 [facility] Work Phone: Comment on above: PATIENT WAS FASTINGP ERFORMED BY: CB [facility] Vfdckc2839 [address] RoadDublin [place] [id number] Mucus Ql (Urine sed) Present Normal Comp rehensive Internal Medicine Work Phone: Comment on above: PATIENT WAS FASTINGP ERFORMED BY: CB [facility] Edkcob4996 [address] RoadDublin [place] [id number] RBC LM.HPF #/area (Urine sed) 0-2 Normal 0 - 2 [facility] Work Phone: Comment on above: PATIENT WAS FASTINGP ERFORMED BY: CB [facility] Kbiqqf2197 [address] RoadDublin [place] [id number] Unidentified crystals LM Ql (Urine sed) Present Abnormal [facility] Work Phone: Comment on above: PATIENT WAS FASTINGP ERFORMED BY: [facility] Kafnwa5080 [address] RoadDublin [place] [id number] WBC LM.HPF #/area (Urine sed) 0-5 Normal 0 - 5 [facility] Work Phone: Comment on above: PATIENT WAS FASTINGP ERFORMED BY: LabCo Ijozca3744 [address] RoadDublin [place] [id number] TSH ([id number])Ordered By: Syste m Acid Tester on 08-02-2018 Thyrotropin Qn 2.110 {uIU/mL} Normal 0.450-4.50 0 [facility] Work Phone: Comment on above: PATIENT WAS FASTINGP ERFORMED BY: [facility] Uzmsvr7732 [address] RoadDublin [place] [id number] URINALYSIS ([id number])Ordered By : Slag Mixer on 08-02-2018 Appearance Nom (U) Cloudy Abnormal Compre hensive Internal Medicine Work Phone: Comment on above: PATIENT WAS FASTINGP ERFORMED BY: [facility] Zvaxlw2802 [address] RoadDublin [place] [id number] Bilirubin Ql (U) Negative Normal Comprehe nsive Internal Medicine Work Phone: Comment on above: PATIENT WAS FASTINGP ERFORMED BY: [facility] Kikojl8790 [address] RoadDublin [place] [id number] Bilirubin Ql (U) Negative Normal Comprehe nsive Internal Medicine; [facility] Work Phone: Color Nom (U) Yellow Normal Comprehensi ve Internal Medicine Work Phone: Comment on above: PATIENT WAS FASTINGP ERFORMED BY: MARCOS Makilin6370 [address] [facility]EC[facility] [id number] Glucose Ql (U) Negative Normal Comprehens negar Internal Medicine Work Phone: Comment on above: PATIENT WAS FASTINGP ERFORMED BY: MARCOS Makilin6370 [address] [facility]EC[facility] [id number] Glucose Ql (U) Negative Normal Comprehens negar Internal Medicine; [facility] Work Phone: Hemoglobin Ql (U) Negative Normal Compreh ensive Internal Medicine Work Phone: Comment on above: PATIENT WAS FASTINGP ERFORMED BY: MARCOS Makilin6370 [address] [facility]EC[facility] [id number] Hemoglobin Ql (U) Negative Normal Compreh ensive Internal Medicine; [facility] Work Phone: Ketones Ql (U) Trace Abnormal Comprehens negar Internal Medicine Work Phone: Comment on above: PATIENT WAS FASTINGP ERFORMED BY: MARCOS Makilin6370 [address] [facility] [id number] Leukocyte esterase Test strip Ql (U) 1+ Abnormal [facility] Work Phone: Comment on above: PATIENT WAS FASTINGP ERFORMED BY: MARCOS Makilin6[address] [facility] [id number] Microscopic observation LM Nom (Urine sed) See below: Normal [facility] Work Phone: Comment on above: Microscopic was margo cated and was performed. PATIENT WAS FASTINGP ERFORMED BY: MARCOS Makilin6[address] [facility] [id number] Nitrite Ql (U) Negative Normal Comprehens negar Internal Medicine Work Phone: Comment on above: PATIENT WAS FASTINGP ERFORMED BY: MARCOS Makilin6370 [address]ublin [place] [id number] Nitrite Ql (U) Negative Normal Comprehens negar Internal Medicine; [facility] Work Phone: pH (U) 6.5 [pH] Normal 5.0-7.5 [facility] Work Phone: Comment on above: PATIENT WAS FASTINGP ERFORMED BY: CB [facility] Dbsuwy9447 [address] RoadDublin [place] [id number] Protein Ql (U) Trace Normal Comprehens negar Internal Medicine Work Phone: Comment on above: PATIENT WAS FASTINGP ERFORMED BY: CB [facility] Vjnrxo3412 [address] SocStockblin [place] [id number] Specific gravity Relative Density (U) 1.028 1 Normal 1.005-1.03 0 [facility] Work Phone: Comment on above: PATIENT WAS FASTINGP ERFORMED BY: LV Sensors [facility] Warreh9164 [address] RoadDublin [place] [id number] Urobilinogen (U) [Mass/Vol] 1.0 mg/dL Normal 0.2-1.0 [facility]; [facility] Work Phone: Urobilinogen Test strip mass conc (U) 1.0 mg/dL Normal 0.2-1.0 [facility] Work Phone: Comment on above: PATIENT WAS FASTINGP ERFORMED BY: LV Sensors [facility] Rqxvhv2753 [address] RoadDublin [place] [id number] CALCIFEDIOL ([id number])Ordered B y: Slag Mixer on 09-11-2017 25-Hydroxyvitamin D2+25-Hydroxyvitamin D3 mass conc 36.8 ng/mL Normal 30.0-100.0 [facility] Work Phone: Comment on above: Vitamin D deficiency has been defined by the [facility] and an Endocrine Society practice guideline as alevel of serum 25-OH vitamin D less than 20 ng/mL (1,2).The Endocrine Society went on to further define vitamin Dinsufficiency as a level between 21 and 29 ng/mL (2).1. IOM ([facility]). 2010. Dietary reference intakes for calcium and D. [place]: The National Academies Press.2. Ashwini MF, Luis NC, Keanu KAY, et al. Evaluation, treatment, and prevention of vitamin D deficiency: an Endocrine Society clinical practice guideline. JCEM. 2010; 96(7):1911-30. Aug 2017; PATIENT TRISHA Hill FASTINGPERFORMED BY: CB [facility] Hmfthr5655 [address] RoadDublin [place] [id number] HGB A1C ([id number])Ordered By: S ystem Acid Tester on 09-11-2017 Hemoglobin A1c/Hemoglobin.total mass fraction (Bld) 5.3 % Normal 4.8-5.6 Comprehensiv e Internal Medicine Work Phone: Comment on above: . Pre-diabetes: 5.7 - 6.4 Diabetes: >6.4 Glycemic control for adults with diabetes: <7.Aug; PATIENT TRISHA Hill FASTINGPERFORMED BY: CB [facility] Bnwgbj6199 [address] RoadDublin [place] [id number] Metabolic Panel, Comprehensi ve ([id number])Ordered By: Slag Mixer on 09-11-2017 Albumin mass conc 4.2 g/dL Normal 3.5-5.5 Compreh ensive Internal Medicine Work Phone: Comment on above: Aug 2017; PATIENT TRISHA Hill FASTINGPERFORMED BY: CB [facility] Vmnscz7103 [address] RoadDublin [place] [id number] Albumin/Globulin mass ratio 1.9 {ratio} Normal 1.2-2.2 [facility] Work Phone: Comment on above: Aug 2017; PATIENT TRISHA S FASTINGPERFORMED BY: CB [facility] Qunlpz7418 [address] RoadDublin [place] [id number] ALP [Catalytic activity/Vol] 68 U/L Normal 39-117 [facility]; [facility] Work Phone: ALP enzyme act/vol 68 [iU]/L Normal 39-117 Compre hensive Internal Medicine Work Phone: Comment on above: Aug 2017; PATIENT TRISHA Hill FASTINGPERFORMED BY: CB [facility] Ygosbw9746 [address] RoadDublin [place] [id number] ALT [Catalytic activity/Vol] 11 U/L Normal 0-32 [facility]; [facility] Internal Medicine Work Phone: ALT enzyme act/vol 11 [iU]/L Normal 0-32 [facility] Internal Medicine Work Phone: Comment on above: Aug 2017; PATIENT WA S FASTINGPERFORMED BY: CB [facility] Kqfoyh8511 [address]Dublin [place] [id number] AST [Catalytic activity/Vol] 10 U/L Normal 0-40 [facility]; [facility] Internal Medicine Work Phone: AST enzyme act/vol 10 [iU]/L Normal 0-40 [facility] Internal Medicine Work Phone: Comment on above: Aug 2017; PATIENT WA S FASTINGPERFORMED BY: CB [facility] Obtdga6119 [address] RoadDublin [place] [id number] Bilirubin mass conc 0.4 mg/dL Normal 0.0-1.2 [facility] Internal Medicine Work Phone: Comment on above: Aug 2017; PATIENT WA S FASTINGPERFORMED BY: CB [facility] Rykzzq1622 [address] RoadDublin [place] [id number] Calcium mass conc 9.2 mg/dL Normal 8.7-10.2 Compreh [facility] hospitalive Internal Medicine Work Phone: Comment on above: Aug 2017; PATIENT WA S FASTINGPERFORMED BY: CB [facility] Zdcpyy1123 [address]Dublin [place] [id number] Chloride molar conc 102 mmol/L Normal 96-106 Compr ensive Internal Medicine Work Phone: Comment on above: Aug 2017; PATIENT WA S FASTINGPERFORMED BY: CB [facility] Bnmvro6437 [address] RoadDublin [place] [id number] CO2 molar conc 26 mmol/L Normal 18-29 Comprehens [facility] Internal Medicine Work Phone: Comment on above: Aug 2017; PATIENT WA S FASTINGPERFORMED BY: CB [facility] Sngrzx9204 [address] RoadDublin [place] [id number] Creatinine mass conc 0.88 mg/dL Normal 0.57-1.00 Comp [facility] Work Phone: Comment on above: Aug 2017; PATIENT WA S FASTINGPERFORMED BY: CB [facility] Xpovuv0788 [address] RoadDublin [place] [id number] GFR/1.73 sq M predicted among blacks CKD-EPI vol rate/area (S/P/Bld) 92 mL/min/1.73 Normal Comprehe nsive Internal Medicine Work Phone: Comment on above: Aug 2017; PATIENT WA S FASTINGPERFORMED BY: CB [facility] Zayafb8617 [address]Dublin [place] [id number] GFR/1.73 sq M predicted among non-blacks CKD-EPI vol rate/area (S/P/Bld) 80 mL/min/1.73 Normal [facility] Work Phone: Comment on above: Aug 2017; PATIENT WA S FASTINGPERFORMED BY: CB [facility] Mrszeg8892 [address] RoadDublin [place] [id number] Globulin mass conc (S) 2.2 g/dL Normal 1.5-4.5 Co mprehensive Internal Medicine Work Phone: Comment on above: Aug 2017; PATIENT WA S FASTINGPERFORMED BY: CB [facility] Mlmxmi0910 [address]Dublin [place] [id number] Glucose mass conc 75 mg/dL Normal 65-99 Compreh ensive Internal Medicine Work Phone: Comment on above: Aug 2017; PATIENT WA S FASTINGPERFORMED BY: CB [facility] Lgozxp0913 [address] RoadSelect [facility]in [place] [id number] Potassium molar conc 3.8 mmol/L Normal 3.5-5.2 Comp rehensive Internal Medicine Work Phone: Comment on above: Aug 2017; PATIENT WA S FASTINGPERFORMED BY: CB [facility] Vxsrax5009 [address]Dublin [place] [id number] Protein mass conc 6.4 g/dL Normal 6.0-8.5 Compreh ensive Internal Medicine Work Phone: Comment on above: Aug 2017; PATIENT WA S FASTINGPERFORMED BY: CB [facility] Ixnrfh7922 [address] RoadDublin [place] [id number] Sodium molar conc 144 mmol/L Normal 134-144 Compreh ensive Internal Medicine Work Phone: Comment on above: Aug 2017; PATIENT WA S FASTINGPERFORMED BY: Simbol MaterialsSaint John'S Regional Health Center Blgouv4963 [facility] [id number] Urea nitrogen mass conc 12 mg/dL Normal 6-24 C omprehensive Internal Medicine Work Phone: Comment on above: Aug 2017; PATIENT WA S FASTINGPERFORMED BY: Simbol MaterialsTrinity Health Grand Haven Hospital6370 [facility] [id number] Urea nitrogen/Creatinine mass ratio 14 mg/mg Normal 9-23 [facility] Work Phone: Comment on above: Aug 2017; PATIENT WA S FASTINGPERFORMED BY: Simbol MaterialsTrinity Health Grand [facility] Hospital6370 [facility] [id number] Influenza A&B Viral Culture ([id number])Ordered By: Slag Mixer on 09-02-2017 FLUV identified Org specific cx Nom (Unsp spec) FLUABN Normal [facility] Work Phone: Comment on above: Negative:No Influenz a A or B detected. PATIENT NOT FASTINGP ERFORMED BY: [employer] [facility] [id number] Information: SRC:NL Rapid Flu (19628 x 2)Ordered By: Alycia Armando on 09-01-2017 FLUAV Ag IA Ql (Throat) Negative Normal C omprehensive Internal Medicine Work Phone: FLUAV Ag IA Ql (Throat) Negative Normal C omprehensive Internal Medicine; [facility] Work Phone: Office Visiton 06-22-2017 Protein mass conc Done Invalid Interpretation Code [facility] Work Phone: CBC, Platelets & Auto Diff ( [id number])Ordered By: Slag Mixer on 03-02-2017 Basophils #/vol (Bld) 0.1 {x10E3/uL} Normal 0.0-0.2 [facility] Work Phone: Comment on above: PATIENT WAS FASTINGP ERFORMED BY: Simbol MaterialsSaint John'S Regional Health Center Muuiyk4959 [facility] [id number] Basophils (Bld) [#/Vol] 0.1 10*3/uL Normal 0.0-0.2 [facility]; [facility] Work Phone: Basophils/100 WBC (Bld) 1 % Normal C omprehensive Internal Medicine Work Phone: Comment on above: PATIENT WAS FASTINGP ERFORMED BY: MARCOS Cruz6370 [facility] [id number] Eosinophils #/vol (Bld) 0.2 {x10E3/uL} Normal 0.0-0.4 [facility] Work Phone: Comment on above: PATIENT WAS FASTINGP ERFORMED BY: MARCOS Makilin6370 [facility] [id number] Eosinophils (Bld) [#/Vol] 0.2 10*3/uL Normal 0.0-0.4 [facility]; [facility] Work Phone: Eosinophils/100 WBC (Bld) 4 % Normal [facility] Work Phone: Comment on above: PATIENT WAS FASTINGP ERFORMED BY: MARCOS Cruz6370 [facility] [id number] Erythrocyte distribution width Ratio (RBC) 13.4 % Normal 12.3-15.4 [facility] Work Phone: Comment on above: PATIENT WAS FASTINGP ERFORMED BY: MARCOS Makilin6370 [facility] [id number] Hematocrit Volume Fraction (Bld) 40.9 % Normal 34.0-46.6 [facility] Work Phone: Comment on above: PATIENT WAS FASTINGP ERFORMED BY: MARCOS Makilin6370 [facility] [id number] Hemoglobin mass conc (Bld) 13.9 g/dL Normal 11.1-15.9 [facility] Work Phone: Comment on above: PATIENT WAS FASTINGP ERFORMED BY: MARCOS Makilin6370 [facility] [id number] Immature granulocytes #/vol (Bld) 0.0 {x10E3/uL} Normal 0.0-0.1 [facility] Work Phone: Comment on above: PATIENT WAS FASTINGP ERFORMED BY: MARCOS [facility]6370 [facility] [id number] Immature granulocytes (Bld) [#/Vol] 0.0 10*3/uL Normal 0.0-0.1 [facility]; [facility] Work Phone: Immature granulocytes/100 WBC (Bld) 0 % Normal [facility] Work Phone: Comment on above: PATIENT WAS FASTINGP ERFORMED BY: MARCOS [facility] Zblpit[address] [id number] Lymphocytes #/vol (Bld) 1.7 {x10E3/uL} Normal 0.7-3.1 [facility] Work Phone: Comment on above: PATIENT WAS FASTINGP ERFORMED BY: MARCOS [place] 7092770 [facility] [id number] Lymphocytes (Bld) [#/Vol] 1.7 10*3/uL Normal 0.7-3.1 [facility]; [facility] Work Phone: Lymphocytes/100 WBC (Bld) 27 % Normal [facility] Work Phone: Comment on above: PATIENT WAS FASTINGP ERFORMED BY: MARCOS [facility] Dafqcq5919 [facility] [id number] MCH Entitic mass (RBC) 30.5 pg Normal 26.6-33.0 Co [facility] Internal Medicine Work Phone: Comment on above: PATIENT WAS FASTINGP ERFORMED BY: MARCOS [place] 7092770 [facility] [id number] MCHC mass conc (RBC) 34.0 g/dL Normal 31.5-35.7 [facility] Internal Medicine Work Phone: Comment on above: PATIENT WAS FASTINGP ERFORMED BY: [address] [id number] MCV Entitic volume (RBC) 90 fL Normal 79-97 [facility] Work Phone: Comment on above: PATIENT WAS FASTINGP ERFORMED BY: MARCOS Roxana Cruz6370 [address] [facility] [id number] Monocytes #/vol (Bld) 0.5 {x10E3/uL} Normal 0.1-0.9 [facility] Work Phone: Comment on above: PATIENT WAS FASTINGP ERFORMED BY: MARCOS Zan Ldqlzd5796 [facility] [id number] Monocytes (Bld) [#/Vol] 0.5 10*3/uL Normal 0.1-0.9 [facility]; [facility] Work Phone: Monocytes/100 WBC (Bld) 8 % Normal C omprehensive Internal Medicine Work Phone: Comment on above: PATIENT WAS FASTINGP ERFORMED BY: MARCOS Zan Wjmadj3370 [facility] [id number] Neutrophils #/vol (Bld) 3.9 {x10E3/uL} Normal 1.4-7.0 [facility] Work Phone: Comment on above: PATIENT WAS FASTINGP ERFORMED BY: MARCOS Roxana Cruz6370 [facility] [id number] Neutrophils (Bld) [#/Vol] 3.9 10*3/uL Normal 1.4-7.0 [facility]; [facility] Work Phone: Neutrophils/100 WBC (Bld) 60 % Normal [facility] Work Phone: Comment on above: PATIENT WAS FASTINGP ERFORMED BY: [facility]Co Phatqv7547 [facility] [id number] Platelets #/vol (Bld) 268 {x10E3/uL} Normal 150-379 [facility] Work Phone: Comment on above: PATIENT WAS FASTINGP ERFORMED BY: [facility]Tr[facility]6370 [facility] [id number] Platelets (Bld) [#/Vol] 268 10*3/uL Normal 150-379 [facility]; [facility] Work Phone: RBC #/vol (Bld) 4.56 {x10E6/uL} Normal 3.77-5.28 [facility] Work Phone: Comment on above: PATIENT WAS FASTINGP ERFORMED BY: MARCOS LabAntonio MakiTsqdqd9688 [facility] [id number] RBC (Bld) [#/Vol] 4.56 10*6/uL Normal 3.77-5.28 [facility] Work Phone: WBC #/vol (Bld) 6.4 {x10E3/uL} Normal 3.4-10.8 [facility] Internal Medicine Work Phone: Comment on above: PATIENT WAS FASTINGP ERFORMED BY: MARCOS [facility] MakiDllosj1910 [address] SocStockCarePart[facility] [id number] WBC (Bld) [#/Vol] 6.4 10*3/uL Normal 3.4-10.8 [facility] Internal Medicine; [facility] Work Phone: HGB A1C ([id number])Ordered By: S ystem Acid Tester on 03-02-2017 Hemoglobin A1c/Hemoglobin.total mass fraction (Bld) 5.5 % Normal 4.8-5.6 [facility] Internal [facility] Work Phone: Comment on above: . Pre-diabetes: 5.7 - 6.4 Diabetes: >6.4 Glycemic control for adults with diabetes: <7.0 PATIENT WAS FASTINGP ERFORMED BY: MARCOS LabEverwise Lyfwnx9058 [facility] [id number] Lipid Panel ([id number])Ordered B y: Slag Mixer on 03-02-2017 Cholesterol in HDL mass conc 55 mg/dL Normal [facility] Work Phone: Comment on above: PATIENT WAS FASTINGP ERFORMED BY: MARCOS LabCohamlet Ppvzqs6648 [facility] [id number] Cholesterol in LDL mass conc 95 mg/dL Normal 0-99 [facility] Work Phone: Comment on above: PATIENT WAS FASTINGP ERFORMED BY: MARCOS Cruz6370 [facility] [id number] Cholesterol in LDL/Cholesterol in HDL mass ratio 1.7 {ratio_units} Normal 0.0-3.2 [facility] Work Phone: Comment on above: LDL/HDL Ratio Men Wo men 1/2 Avg.Risk 1.0 1.5 Avg.Risk 3.6 3.2 2X Avg.Risk 6.2 5.0 3X Avg.Risk 8.0 6.1 PATIENT WAS FASTINGP ERFORMED BY: MARCOS Cruz6370 [facility] [id number] Cholesterol in VLDL mass conc 17 mg/dL Normal 5-40 [facility] Work Phone: Comment on above: PATIENT WAS FASTINGP ERFORMED BY: MARCOS Cruz6370 [facility] [id number] Cholesterol mass conc 167 mg/dL Normal 100-199 Com prehensive Internal Medicine Work Phone: Comment on above: PATIENT WAS FASTINGP ERFORMED BY: MARCOS Cruz6370 [facility] [id number] Triglyceride mass conc 85 mg/dL Normal 0-149 [facility] Internal Medicine Work Phone: Comment on above: PATIENT WAS FASTINGP ERFORMED BY: MARCOS Cruz6370 [facility] [id number] Metabolic Panel, Comprehensi ve (18097)Ordered By: Slag Mixer on 03-02-2017 Albumin mass conc 4.3 g/dL Normal 3.5-5.5 Compreh ensive Internal Medicine Work Phone: Comment on above: PATIENT WAS FASTINGP ERFORMED BY: MARCOS Makilin6370 [facility] [id number] Albumin/Globulin mass ratio 1.7 {ratio} Normal 1.2-2.2 [facility] Work Phone: Comment on above: PATIENT WAS FASTINGP ERFORMED BY: MARCOS Makilin6[address] [facility] [place] [id number] ALP [Catalytic activity/Vol] 84 U/L Normal 39-117 [facility]; [facility] Internal Medicine Work Phone: ALP enzyme act/vol 84 [iU]/L Normal 39-117 [facility] Internal Medicine Work Phone: Comment on above: PATIENT WAS FASTINGP ERFORMED BY: MARCOS Zuluaga Oohezq2650 [address] [facility] [place] [id number] ALT [Catalytic activity/Vol] 15 U/L Normal 0-32 [facility]; [facility] Internal Medicine Work Phone: ALT enzyme act/vol 15 [iU]/L Normal 0-32 [facility] Internal Medicine Work Phone: Comment on above: PATIENT WAS FASTINGP ERFORMED BY: MARCOS Makilin6370 [facility] [id number] AST [Catalytic activity/Vol] 15 U/L Normal 0-40 [facility] Internal Medicine; [facility] Internal Medicine Work Phone: AST enzyme act/vol 15 [iU]/L Normal 0-40 [facility] Internal Medicine Work Phone: Comment on above: PATIENT WAS FASTINGP ERFORMED BY: MARCOS Makilin6370 [facility] [id number] Bilirubin mass conc 0.7 mg/dL Normal 0.0-1.2 [facility] Internal Medicine Work Phone: Comment on above: PATIENT WAS FASTINGP ERFORMED BY: MARCOS [facility] Yhxqoa4638 [facility] [id number] Calcium mass conc 9.4 mg/dL Normal 8.7-10.[address] Internal Medicine Work Phone: Comment on above: PATIENT WAS FASTINGP ERFORMED BY: MARCOS Zuluaga Dbwchf7238 [facility] [id number] Chloride molar conc 101 mmol/L Normal 96-106 Compr [facility] Internal Medicine Work Phone: Comment on above: PATIENT WAS FASTINGP ERFORMED BY: MARCOS Zuluaga Xcozmq2645 [facility] [id number] CO2 molar conc 25 mmol/L Normal 18-29 Comprehens negar Internal Medicine Work Phone: Comment on above: PATIENT WAS FASTINGP ERFORMED BY: MARCOS [facility]6370 [facility] [id number] Creatinine mass conc 0.82 mg/dL Normal 0.57-1.00 Comp rehensive Internal Medicine Work Phone: Comment on above: PATIENT WAS FASTINGP ERFORMED BY: MARCOS [place] 7092770 [facility] [id number] GFR/1.73 sq M predicted among blacks CKD-EPI vol rate/area (S/P/Bld) 101 mL/min/1.73 Normal Comprehe nsive Internal Medicine Work Phone: Comment on above: PATIENT WAS FASTINGP ERFORMED BY: MARCOS [facility] Tchlrc5597 [facility] [id number] GFR/1.73 sq M predicted among non-blacks CKD-EPI vol rate/area (S/P/Bld) 87 mL/min/1.73 Normal [facility] Work Phone: Comment on above: PATIENT WAS FASTINGP ERFORMED BY: MARCOS [facility] Tgqpdt9007 [facility] [id number] Globulin mass conc (S) 2.5 g/dL Normal 1.5-4.5 Co mprehensive Internal Medicine Work Phone: Comment on above: PATIENT WAS FASTINGP ERFORMED BY: MARCOS [facility]6370 [facility] [id number] Glucose mass conc 94 mg/dL Normal 65-99 Compreh ensive Internal Medicine Work Phone: Comment on above: PATIENT WAS FASTINGP ERFORMED BY: MARCOS [facility]6370 [facility] [id number] Potassium molar conc 4.6 mmol/L Normal 3.5-5.2 Comp rehensive Internal Medicine Work Phone: Comment on above: PATIENT WAS FASTINGP ERFORMED BY: CB [facility] Msetwf1704 [address] RoadDublin [place] [id number] Protein mass conc 6.8 g/dL Normal 6.0-8.5 Compreh ensive Internal Medicine Work Phone: Comment on above: PATIENT WAS FASTINGP ERFORMED BY: CB [facility] Opmkyh2493 [address] RoadDublin [place] [id number] Sodium molar conc 141 mmol/L Normal 134-144 Compreh ensive Internal Medicine Work Phone: Comment on above: PATIENT WAS FASTINGP ERFORMED BY: CB [facility] Njlgda8990 [address] RoadDublin [place] [id number] Urea nitrogen mass conc 9 mg/dL Normal 6-24 C omprehensive Internal Medicine Work Phone: Comment on above: PATIENT WAS FASTINGP ERFORMED BY: CB [facility] Tckhch6731 [address]ec[address] RoadDublin [place] [id number] Urea nitrogen/Creatinine mass ratio 11 mg/mg Normal 9-23 [facility] Work Phone: Comment on above: PATIENT WAS FASTINGP ERFORMED BY: CB [facility] Jepejd5316 [address] RoadDublin [place] [id number] CALCIFEDIOL ([id number])Ordered B y: Slag Mixer on 07-22-2016 25-Hydroxyvitamin D2+25-Hydroxyvitamin D3 mass conc 36.7 ng/mL Normal 30.0-100.0 [facility] Work Phone: Comment on above: Vitamin D deficiency has been defined by the [facility] and an Endocrine Society practice guideline as alevel of serum 25-OH vitamin D less than 20 ng/mL (1,2).The Endocrine Society went on to further define vitamin Dinsufficiency as a level between 21 and 29 ng/mL (2).1. IOM ([facility]). 2010. Dietary reference intakes for calcium and D. [place]: The National Academies Press.2. Ashwini MF, Luis SUAREZ, Keanu KAY, et al. Evaluation, treatment, and prevention of vitamin D deficiency: an Endocrine Society clinical practice guideline. JCEM. 2010; 96(7):1911-30. PATIENT NOT FASTINGP ERFORMED BY: THERAVECTYS Bgzdhk7501 [facility] [id number] HGB A1C (47256)Ordered By: S ystem Acid Tester on 07-22-2016 Hemoglobin A1c/Hemoglobin.total mass fraction (Bld) 5.8 % Abnormal 4.8-5.6 Comprehensiv e Internal Medicine Work Phone: Comment on above: . Pre-diabetes: 5.7 - 6.4 Diabetes: >6.4 Glycemic control for adults with diabetes: <7.0 PATIENT NOT FASTINGP ERFORMED BY: THERAVECTYS Ddozpr4250 [facility] [id number] HGB A1C (45512)Ordered By: S eMetertem Acid Tester on 02-01-2016 Hemoglobin A1c/Hemoglobin.total mass fraction (Bld) 5.7 % Abnormal 4.8-5.6 Comprehensiv e Internal Medicine Work Phone: Comment on above: . Pre-diabetes: 5.7 - 6.4 Diabetes: >6.4 Glycemic control for adults with diabetes: <7.0 PATIENT NOT FASTINGP ERFORMED BY: THERAVECTYS Wgtrln3723 [facility] [id number] Information: [id number] CALCIFIDIOL (92263) VIT D 25 Ordered By: Slag Mixer on 01-24-2016 25-Hydroxyvitamin D2+25-Hydroxyvitamin D3 mass conc 17.3 ng/mL Abnormal 30.0-100.0 [facility] Work Phone: Comment on above: Vitamin D deficiency has been defined by the [facility] and an Endocrine Society practice guideline as alevel of serum 25-OH vitamin D less than 20 ng/mL (1,2).The Endocrine Society went on to further define vitamin Dinsufficiency as a level between 21 and 29 ng/mL (2).1. IOM ([facility]). 2010. Dietary reference intakes for calcium and D. [place]: The National Academies Press.2. Ashwini MF, Luis [place], Keanu KAY, et al. Evaluation, treatment, and prevention of vitamin D deficiency: an Endocrine Society clinical practice guideline. JCEM. 2010; 96(7):1911-30. PATIENT WAS FASTINGP ERFORMED BY: MARCOS Cruz6370 [facility] [id number]; apt. 5-20 LIPID PANEL (91341)Ordered B y: Slag Mixer on 01-24-2016 Cholesterol in HDL mass conc 50 mg/dL Normal [facility] Work Phone: Comment on above: According to ATP-III Guidelines, HDL-C >59 mg/dL is considered anegative risk factor for CHD. PATIENT WAS FASTINGP ERFORMED BY: MARCOS Zuluaga Uwpzdi6833 [facility] [id number] Information: [id number] Cholesterol in LDL mass conc 118 mg/dL Abnormal 0-99 [facility] Work Phone: Comment on above: PATIENT WAS FASTINGP ERFORMED BY: MARCOS Zan Qnbbkx2991 [facility] [id number] Information: [id number] Cholesterol in LDL/Cholesterol in HDL mass ratio 2.4 {ratio_units} Normal 0.0-3.2 [facility] Work Phone: Comment on above: LDL/HDL Ratio Men Wo men 1/2 Avg.Risk 1.0 1.5 Avg.Risk 3.6 3.2 2X Avg.Risk 6.2 5.0 3X Avg.Risk 8.0 6.1 PATIENT WAS FASTINGP ERFORMED BY: MARCOS Zan Lrrzvv8840 [facility] [id number] Information: [id number] Cholesterol in VLDL mass conc 14 mg/dL Normal 5-40 [facility] Work Phone: Comment on above: PATIENT WAS FASTINGP ERFORMED BY: MARCOS Zuluaga Hlibgv0334 [facility] [id number] Information: [id number] Cholesterol mass conc 182 mg/dL Normal 100-199 [facility] prehensive Internal Medicine Work Phone: Comment on above: PATIENT WAS FASTINGP ERFORMED BY: [facility] Fgemxa0876 [facility] [id number] Information: [id number] Triglyceride mass conc 72 mg/dL Normal 0-149 [facility] Internal Medicine Work Phone: Comment on above: PATIENT WAS FASTINGP ERFORMED BY: [facility]6370 [facility] [id number] Information: [id number] CALCIFIDIOL (62011) VIT D 25 Ordered By: Slag Mixer on 10-16-2015 25-Hydroxyvitamin D2+25-Hydroxyvitamin D3 mass conc 29.6 ng/mL Abnormal 30.0-100.0 [facility] Work Phone: Comment on above: Vitamin D deficiency has been defined by the [facility] and an Endocrine Society practice guideline as alevel of serum 25-OH vitamin D less than 20 ng/mL (1,2).The Endocrine Society went on to further define vitamin Dinsufficiency as a level between 21 and 29 ng/mL (2).1. IOM ([facility]). 2010. Dietary reference intakes for calcium and D. [place]: The National Academies Press.2. Ashwini MF, Luis [place], Keanu KAY, et al. Evaluation, treatment, and prevention of vitamin D deficiency: an Endocrine Society clinical practice guideline. JCEM. 2010; 96(7):1911-30. PATIENT NOT FASTINGP ERFORMED BY: [facility]6370 [facility] [id number] CBC with auto diff ([id number])Or dered By: Slag Mixer on 10-16-2015 Basophils #/vol (Bld) 0.0 {x10E3/uL} Normal 0.0-0.2 [facility] Work Phone: Comment on above: PATIENT NOT FASTINGP ERFORMED BY: [facility]6370 [facility] [id number] Information: [id number] Basophils (Bld) [#/Vol] 0.0 10*3/uL Normal 0.0-0.2 [facility]; [facility] Work Phone: Basophils/100 WBC (Bld) 0 % Normal C omprehensive Internal Medicine Work Phone: Comment on above: PATIENT NOT FASTINGP ERFORMED BY: MARCOS Makilin6370 [facility] [id number] Information: [id number] Eosinophils #/vol (Bld) 0.2 {x10E3/uL} Normal 0.0-0.4 [facility] Work Phone: Comment on above: PATIENT NOT FASTINGP ERFORMED BY: MARCOS HoskinsTimothy V[place] 9174570 [facility] [id number] Information: [id number] Eosinophils (Bld) [#/Vol] 0.2 10*3/uL Normal 0.0-0.4 [facility]; [facility] Work Phone: Eosinophils/100 WBC (Bld) 3 % Normal [facility] Work Phone: Comment on above: PATIENT NOT FASTINGP ERFORMED BY: MARCOS ZuluagaAndrew [place] 4283870 [facility] [id number] Information: [id number] Erythrocyte distribution width Ratio (RBC) 13.2 % Normal 12.3-15.4 [facility] Work Phone: Comment on above: PATIENT NOT FASTINGP ERFORMED BY: MARCOS Hoskins[address] [id number] Information: [id number] Hematocrit Volume Fraction (Bld) 38.9 % Normal 34.0-46.6 [facility] Work Phone: Comment on above: PATIENT NOT FASTINGP ERFORMED BY: [facility]6370 [facility] [id number] Information: [id number] Hemoglobin mass conc (Bld) 13.0 g/dL Normal 11.1-15.9 [facility] Work Phone: Comment on above: PATIENT NOT FASTINGP ERFORMED BY: LabTimothy V[place] 9174570 [facility] [id number] Information: [id number] Immature granulocytes #/vol (Bld) 0.0 {x10E3/uL} Normal 0.0-0.1 [facility] Work Phone: Comment on above: PATIENT NOT FASTINGP ERFORMED BY: MARCOS Cruz6370 [facility] [id number] Information: [id number] Immature granulocytes (Bld) [#/Vol] 0.0 10*3/uL Normal 0.0-0.1 [facility]; [facility] Work Phone: Immature granulocytes/100 WBC (Bld) 0 % Normal [facility] Work Phone: Comment on above: PATIENT NOT FASTINGP ERFORMED BY: MARCOS [facility] CenterAntonio Cruz6370 [facility] [id number] Information: [id number] Lymphocytes #/vol (Bld) 1.6 {x10E3/uL} Normal 0.7-3.1 [facility] Work Phone: Comment on above: PATIENT NOT FASTINGP ERFORMED BY: MARCOS Cruz6370 [facility] [id number] Information: [id number] Lymphocytes (Bld) [#/Vol] 1.6 10*3/uL Normal 0.7-3.1 [facility]; [facility] Work Phone: Lymphocytes/100 WBC (Bld) 22 % Normal [facility] Work Phone: Comment on above: PATIENT NOT FASTINGP ERFORMED BY: MARCOS LabCoCare [facility] at [facility] Medical CenterEuocel1116 [facility] [id number] Information: [id number] MCH Entitic mass (RBC) 29.8 pg Normal 26.6-33.0 Co [facility] Internal Medicine Work Phone: Comment on above: PATIENT NOT FASTINGP ERFORMED BY: MARCOS [facility] Ouavsn1098 [facility] [id number] Information: [id number] MCHC mass conc (RBC) 33.4 g/dL Normal 31.5-35.7 Comp [facility] Work Phone: Comment on above: PATIENT NOT FASTINGP ERFORMED BY: MARCOS Zuluaga Hcgvjy5261 [facility] [id number] Information: [id number] MCV Entitic volume (RBC) 89 fL Normal 79-97 [facility] Work Phone: Comment on above: PATIENT NOT FASTINGP ERFORMED BY: [address] [id number] Information: [id number] Monocytes #/vol (Bld) 0.7 {x10E3/uL} Normal 0.1-0.9 [facility] Work Phone: Comment on above: PATIENT NOT FASTINGP ERFORMED BY: MARCOS [address] [id number] Information: [id number] Monocytes (Bld) [#/Vol] 0.7 10*3/uL Normal 0.1-0.9 [facility]; [facility] Work Phone: Monocytes/100 WBC (Bld) 9 % Normal C [facility] Internal Medicine Work Phone: Comment on above: PATIENT NOT FASTINGP ERFORMED BY: [facility]6370 [facility] [id number] Information: [id number] Neutrophils #/vol (Bld) 4.6 {x10E3/uL} Normal 1.4-7.0 [facility] Work Phone: Comment on above: PATIENT NOT FASTINGP ERFORMED BY: MARCOS [facility]6370 [facility] [id number] Information: [id number] Neutrophils (Bld) [#/Vol] 4.6 10*3/uL Normal 1.4-7.0 [facility]; [facility] Work Phone: Neutrophils/100 WBC (Bld) 66 % Normal [facility] Work Phone: Comment on above: PATIENT NOT FASTINGP ERFORMED BY: MARCOS Cruz6370 [facility] [id number] Information: [id number] Platelets #/vol (Bld) 243 {x10E3/uL} Normal 150-379 [facility] Work Phone: Comment on above: PATIENT NOT FASTINGP ERFORMED BY: MARCOS ZuluagaAndrew [place] 4283870 [facility] [id number] Information: [id number] Platelets (Bld) [#/Vol] 243 10*3/uL Normal 150-379 [facility]; [facility] Work Phone: RBC #/vol (Bld) 4.36 {x10E6/uL} Normal 3.77-5.28 [facility] Work Phone: Comment on above: PATIENT NOT FASTINGP ERFORMED BY: MARCOS HoskinsTimothy [place] 9174570 [facility] [id number] Information: [id number] RBC (Bld) [#/Vol] 4.36 10*6/uL Normal 3.77-5.28 Compr ensive Internal Medicine; [facility] Work Phone: WBC #/vol (Bld) 7.1 {x10E3/uL} Normal 3.4-10.8 Compr ensive Internal Medicine Work Phone: Comment on above: PATIENT NOT FASTINGP ERFORMED BY: MARCOS [facility]6370 [facility] [id number] Information: [id number] WBC (Bld) [#/Vol] 7.1 10*3/uL Normal 3.4-10.8 Compre [facility] Internal Medicine; [facility] Work Phone: METABOLIC PANEL, COMPREHENSI VE (27245)Ordered By: Slag Mixer on 10-16-2015 Albumin mass conc 4.2 g/dL Normal 3.5-5.5 [facility] Internal Medicine Work Phone: Comment on above: PATIENT NOT FASTINGP ERFORMED BY: MARCOS Cruz[address] [facility] [place] [id number] Albumin/Globulin mass ratio 1.9 {ratio} Normal 1.1-2.5 [facility] Internal Medicine Work Phone: Comment on above: PATIENT NOT FASTINGP ERFORMED BY: MARCOS LabCohamlet CruzDbgzdl4548 [address] [facility] [place] [id number] ALP [Catalytic activity/Vol] 89 U/L Normal 39-117 [facility]; [facility] Internal Medicine Work Phone: ALP enzyme act/vol 89 [iU]/L Normal 39-117 [facility] Internal Medicine Work Phone: Comment on above: PATIENT NOT FASTINGP ERFORMED BY: MARCOS Makilin6[address] [facility] [id number] ALT [Catalytic activity/Vol] 12 U/L Normal 0-32 [facility]; [facility] Internal Medicine Work Phone: ALT enzyme act/vol 12 [iU]/L Normal 0-32 [facility] Internal Medicine Work Phone: Comment on above: PATIENT NOT FASTINGP ERFORMED BY: MARCOS Cruz[address] [facility] [id number] AST [Catalytic activity/Vol] 16 U/L Normal 0-40 [facility] Internal Medicine; [facility] Internal Medicine Work Phone: AST enzyme act/vol 16 [iU]/L Normal 0-40 [facility] Internal Medicine Work Phone: Comment on above: PATIENT NOT FASTINGP ERFORMED BY: MARCOS [facility] Hamivx0921 [address] [facility] [place] [id number] Bilirubin mass conc 0.4 mg/dL Normal 0.0-1.2 [facility] Internal Medicine Work Phone: Comment on above: PATIENT NOT FASTINGP ERFORMED BY: MARCOS [facility] Odzkhe5983 [address] [facility] [place] [id number] Calcium mass conc 9.1 mg/dL Normal 8.7-10.2 Compreh ensive Internal Medicine Work Phone: Comment on above: PATIENT NOT FASTINGP ERFORMED BY: MARCOS [facility] Qdrxdh9836 Vences RoadDublin [place] [id number] Chloride molar conc 102 mmol/L Normal 97-108 Compr ehensive Internal Medicine Work Phone: Comment on above: PATIENT NOT FASTINGP ERFORMED BY: CB [facility] Ctittq7683 Vences Roadblin [place] [id number] CO2 molar conc 24 mmol/L Normal 18-29 Comprehens negar Internal Medicine Work Phone: Comment on above: PATIENT NOT FASTINGP ERFORMED BY: CB [facility] Symmji1054 [address]blin [place] [id number] Creatinine mass conc 0.71 mg/dL Normal 0.57-1.00 Comp rehensive Internal Medicine Work Phone: Comment on above: PATIENT NOT FASTINGP ERFORMED BY: CB [facility] Ommavq1844 [address] [facility] [place] [id number] GFR/1.73 sq M predicted among blacks CKD-EPI vol rate/area (S/P/Bld) 121 mL/min/1.73 Normal Comprehe nsive Internal Medicine Work Phone: Comment on above: PATIENT NOT FASTINGP ERFORMED BY: CB [facility] Cqxlix6303 [address] [facility]Select [facility]in [place] [id number] GFR/1.73 sq M predicted among non-blacks CKD-EPI vol rate/area (S/P/Bld) 105 mL/min/1.73 Normal Comprehensive [facility] Work Phone: Comment on above: PATIENT NOT FASTINGP ERFORMED BY: CB [facility] Xptogr5456 [address] RoadDublin [place] [id number] Globulin mass conc (S) 2.2 g/dL Normal 1.5-4.5 Co mprehensive Internal Medicine Work Phone: Comment on above: PATIENT NOT FASTINGP ERFORMED BY: CB [facility] Fcwhcn0199 [address] [place] [id number] Glucose mass conc 113 mg/dL Abnormal 65-99 Compreh ensive Internal Medicine Work Phone: Comment on above: PATIENT NOT FASTINGP ERFORMED BY: MARCOS Cruz6370 [address] [facility] [place] [id number] Potassium molar conc 4.2 mmol/L Normal 3.5-5.2 Comp rehensive Internal Medicine Work Phone: Comment on above: PATIENT NOT FASTINGP ERFORMED BY: MARCOS [facility] Ioehxq3413 [address] [facility] [place] [id number] Protein mass conc 6.4 g/dL Normal 6.0-8.5 Compreh ensive Internal Medicine Work Phone: Comment on above: PATIENT NOT FASTINGP ERFORMED BY: MARCOS [facility] Vonhwr5816 [address] [facility] [place] [id number] Sodium molar conc 141 mmol/L Normal 134-144 Compreh ensive Internal Medicine Work Phone: Comment on above: PATIENT NOT FASTINGP ERFORMED BY: MARCOS [facility] Dwdnhd0326 [address] [facility] [place] [id number] Urea nitrogen mass conc 9 mg/dL Normal 6-24 C omprehensive Internal Medicine Work Phone: Comment on above: PATIENT NOT FASTINGP ERFORMED BY: MARCOS Makilin6370 [address] [facility] [place] [id number] Urea nitrogen/Creatinine mass ratio 13 mg/mg Normal 9-23 [facility] Work Phone: Comment on above: PATIENT NOT FASTINGP ERFORMED BY: MARCOS [facility] Afnjfw3230 [address] [facility] [id number] Vitamin D, 25-HydroxyOrdered By: Slag Mixer on 03-19-2015 25-Hydroxyvitamin D2+25-Hydroxyvitamin D3 mass conc 37.9 ng/mL Normal 30.0-100.0 [facility] Work Phone: Comment on above: Vitamin D deficiency has been defined by the [facility] and an Endocrine Society practice guideline as alevel of serum 25-OH vitamin D less than 20 ng/mL (1,2).The Endocrine Society went on to further define vitamin Dinsufficiency as a level between 21 and 29 ng/mL (2).1. IOM ([facility]). 2010. Dietary reference intakes for calcium and D. [place]: The National Academies Press.2. Ashwini MF, Luis SUAREZ, Keanu KAY, et al. Evaluation, treatment, and prevention of vitamin D deficiency: an Endocrine Society clinical practice guideline. JCEM. 2010; 96(7):1911-30. PATIENT NOT FASTINGP ERFORMED BY: [facility] Bzyvwf7804 [facility] [id number] Information: [id number] Pathology ReportOrdered By: Slag Mixer on 01-09-2015 Pathology report site of origin Narrative MATER Normal Comprehensiv e Internal Medicine Work Phone: Comment on above: Material submitted: .PUNCH BX LT LOWER LEGClinician provided ICD-9:239.2 ; Neoplasms of unspecified nature of bone, soft tissue, and skinClinical history: . Diagnosis:. SIMPLE LENTIGO..MUR/01/15/2015 Addendum: .I HAVE REVIEWED THIS CASE AT THE REQUEST OF THE PATHOLOGIST.THERE IS INCREASED MELANIZATION OF THE EPIDERMIS WHICH MAYREPRESENT A LENTIGO, THOUGH THIS COULD ALSO BE RELATED TO THEPATIENT'S PERSONAL PIGMENTATION. A VERY SCANTY PERIVASCULARLYMPHOCYTIC INFILTRATE IS NOTED WITHIN THE DERMIS IN ADDITION TOPURPURA THAT MAY BE BIOPSY PROCEDURE RELATED. A FEW SLIGHTLYINCREASED SPINDLE CELLS ARE NOTED IN THE DEEP DERMIS AND SUBCUTISIN ADDITION TO A VERY SCANTY PERIVASCULAR LYMPHOID INFILTRATE.THESE CYTOMORPHOLOGICALLY APPEAR TO BE FIBROBLASTS AND MIGHT BEINCREASED IN RESPONSE TO SOME TYPE OF PRIOR TRAUMA OR IN THESETTING OF SOME PRIOR INFLAMMATORY DISORDER WHICH I AM UNABLE TO DEFINEBASED ON THE MATERIAL SUBMITTED. I DO NOT APPRECIATE DIAGNOSTICFEATURES OF ERYTHEMA NODOSUM IN THIS MATERIAL THOUGH IT ISPLAUSIBLE THAT THE FIBROBLASTIC RESPONSE COULD REPRESENT ANON-SPECIFIC INFILTRATE ASSOCIATED WITH A PRIOR ANDSUBSEQUENTIALLY RESOLVED PANNICULITIS. CLINICOPATHOLOGICCORRELATION IS RECOMMENDED. REPEAT BIOPSY FOR COMPARISONSAMPLING LARGER PORTIONS OF SUBCUTANEOUS TISSUE MAY AID IN FURTHERDIAGNOSTIC CONSIDERATION IF PANNICULITIS REMAINS A STRONGCLINICAL CONSIDERATION, ESPECIALLY IF THERE IS FAILURE TO RESPONDTO THERAPY OR CLINICAL EVOLUTION OF THE PROCESS.01/25/2015ddendum Electronically Signed by Shirin Paredes MD, DermatopathologistElectronically signed: .Ishan Antonio MD, PathologistGross description: .RECEIVED IN FORMALIN LABELED ONEAL ZABALA AND DESIGNATEDLT LOWER LEG ON REQUISITION IS A REYNOSO/YELLOW PUNCH BIOPSY MEASURING0.3 X 0.2 CM, EXCISED TO A DEPTH OF 0.4 CM. THE MARGIN ISMARKED WITH BLACK INK. IT IS BISECTED ENTIRELY AND SUBMITTEDIN A SINGLE CASSETTE.LMS/TMZPathologist provided ICD-9:709.09, 709.9CPT .905413 PERFORMED BY: KWCYT [facility] Jfdwo46195 [facility] [id number] BY: LX [facility] Iaonbjs38611 [facility] [id number] Information: [id number] TREE (ANTINUCLEAR ANTIBODY) ( [id number])Ordered By: Slag Mixer on 01-01-2015 Nuclear Ab Ql (S) Negative Normal Compreh ensive Internal Medicine Work Phone: Comment on above: PATIENT NOT FASTINGP ERFORMED BY: CB [facility] Ywceqg9229 [facility] [id number] BY: BN [facility] Qrfzmfhuvh5654 [facility] [id number] Nuclear Ab Ql (S) Negative Normal Compreh ensive Internal Medicine; [facility] Work Phone: ANTISTREPTOLYSIN O-TITER ([phone])Ordered By: Slag Mixer on 01-01-2015 Streptolysin O Ab Qn 26.4 {IU/mL} Normal 0.0-200.0 Co [facility] Internal Medicine Work Phone: Comment on above: PATIENT NOT FASTINGP ERFORMED BY: MARCOS [facility] Abxcks5441 [address] Get Satisfactionblin [place] [id number] BY: [facility] [id number] Streptolysin O Ab Qn 26.4 [IU]/mL Normal 0.0-200.0 Co [facility] healthcareehensive Internal Medicine; [facility] Work Phone: C-REACTIVE PROTEIN (04188)Or dered By: Slag Mixer on 01-01-2015 CRP mass conc 7.8 mg/L Abnormal 0.0-4.9 Comprehensi Internal Medicine Work Phone: Comment on above: PATIENT NOT FASTINGP ERFORMED BY: LV [employer]ensors [facility] Rmzpiz2721 [address] [facility] [id number] BY: Infrastruct Securityton1447 [facility] [id number] CALCIFIDIOL (67592) VIT D 25 Ordered By: Slag Mixer on 01-01-2015 25-Hydroxyvitamin D2+25-Hydroxyvitamin D3 mass conc 13.7 ng/mL Abnormal 30.0-100.0 [facility] Work Phone: Comment on above: Vitamin D deficiency has been defined by the [facility] and an Endocrine Society practice guideline as alevel of serum 25-OH vitamin D less than 20 ng/mL (1,2).The Endocrine Society went on to further define vitamin Dinsufficiency as a level between 21 and 29 ng/mL (2).1. IOM ([facility]). 2010. Dietary reference intakes for calcium and D. [place]: The National Academies Press.2. Ashwini MF, Luis SUAREZ, Keanu KAY, et al. Evaluation, treatment, and prevention of vitamin D deficiency: an Endocrine Society clinical practice guideline. JCEM. 2010; 96(7):1911-30. PATIENT NOT FASTINGP ERFORMED BY: CB [facility] Kkhwme4254 [address] [facility] [id number] BY: [address] [id number] CBC (AUTO) ([id number])Ordered By : Slag Mixer on 01-01-2015 Erythrocyte distribution width Ratio (RBC) 13.4 % Normal 12.3-15.4 [facility] Work Phone: Comment on above: PATIENT NOT FASTINGP ERFORMED BY: MARCOS [facility] Hzfatr4605 [address] [facility] [id number] BY: LabCo[address] [id number] Hematocrit Volume Fraction (Bld) 38.5 % Normal 34.0-46.6 [facility] Work Phone: Comment on above: PATIENT NOT FASTINGP ERFORMED BY: MARCOS [facility] Kmglxl7635 [address] [facility] [id number] BY: Lab[address] [id number] Hemoglobin mass conc (Bld) 13.5 g/dL Normal 11.1-15.9 [facility] Work Phone: Comment on above: PATIENT NOT FASTINGP ERFORMED BY: MARCOS [facility] Lbtnrr4615 [address] [facility] [place] [id number] BY: Lab[address] [id number] MCH Entitic mass (RBC) 31.6 pg Normal 26.6-33.0 [facility] Internal Medicine Work Phone: Comment on above: PATIENT NOT FASTINGP ERFORMED BY: CB [facility] Bsqnkh5036 [address] [facility] [place] [id number] BY: Lab[address] [id number] MCHC mass conc (RBC) 35.1 g/dL Normal 31.5-35.7 [facility] Internal Medicine Work Phone: Comment on above: PATIENT NOT FASTINGP ERFORMED BY: CB [facility] Hcvbnn2755 [address] [facility] [id number] BY: [address] [id number] MCV Entitic volume (RBC) 90 fL Normal 79-97 Comprehensive [facility] Medicine Work Phone: Comment on above: PATIENT NOT FASTINGP ERFORMED BY: MARCOS [facility] Jfzwwv4024 [facility] [id number] BY: [facility]Co[address] [id number] Platelets #/vol (Bld) 278 {x10E3/uL} Normal 150-379 [facility] Medicine Work Phone: Comment on above: PATIENT NOT FASTINGP ERFORMED BY: MARCOS LabCohamlet MakiGkzzpl[address] [id number] BY: [address] [id number] Platelets (Bld) [#/Vol] 278 10*3/uL Normal 150-379 [facility]; [facility] Work Phone: RBC #/vol (Bld) 4.27 {x10E6/uL} Normal 3.77-5.28 Comp [facility] Work Phone: Comment on above: PATIENT NOT FASTINGP ERFORMED BY: MARCOS [facility] Kwuetm3437 [facility] [id number] BY: [address] [id number] RBC (Bld) [#/Vol] 4.27 10*6/uL Normal 3.77-5.28 Compr ensive Internal Medicine; [facility] Work Phone: WBC #/vol (Bld) 9.1 {x10E3/uL} Normal 3.4-10.8 Compr ensive Internal Medicine Work Phone: Comment on above: PATIENT NOT FASTINGP ERFORMED BY: LabCo[address] [id number] BY: [address] [id number] WBC (Bld) [#/Vol] 9.1 10*3/uL Normal 3.4-10.8 Compre [facility] Internal Medicine; Comprehensive Internal Medicine Work Phone: EBV Panel (24323)Ordered By: Slag Mixer on 01-01-2015 EBV capsid IgG IA Qn (S) >600.0 Abnormal 0.0-17.9 [facility] Medicine Work Phone: Comment on above: Negative <18.0 Equiv ocal 18.0 - 21.9 Positive >21.9 PATIENT NOT FASTINGP ERFORMED BY: Avegant70 [address] [facility] [id number] BY: [employer] [address] [id number] EBV capsid IgM IA Qn (S) <36.0 Normal 0.0-35.9 [facility] Medicine Work Phone: Comment on above: Negative <36.0 Equiv ocal 36.0 - 43.9 Positive >43.9 PATIENT NOT FASTINGP ERFORMED BY: Amind6370 [address] [facility] [id number] BY: [employer] [address] [id number] EBV early IgG Qn (S) 33.6 U/mL Abnormal 0.0-8.9 Comp [facility] Internal Medicine Work Phone: Comment on above: Hepatitis A, Hepatit is C and HIV antibodies may cross-reactwith this assay. Negative < 9.0 Equivocal 9.0 - 10.9 Positive >10.9 PATIENT NOT FASTINGP ERFORMED BY: [place]6370 [facility] [id number] BY: [employer] [address] [id number] EBV nuclear IgG IA Qn (S) 441.0 U/mL Abnormal 0.0-17.9 [facility] Work Phone: Comment on above: Negative <18.0 Equiv ocal 18.0 - 21.9 Positive >21.9 PATIENT NOT FASTINGP ERFORMED BY: Avegant70 [facility] [id number] BY: [facility] [id number] Service comment Interp (Unsp spec) [facility] Normal Comprehensive Internal Medicine Work Phone: Comment on above: EBV Interpretation C del cid . Interpretation EBV-IgM EA(D)-IgG VCA-IgG EBNA-IgG . EBV Seronegative - - - - Early Phase + - - - Acute Primary + +or- + - Infection Convalescence/Past - +or- + + Infection Reactivated +or- + + + Infection + Antibody Present - Antibody Absent PATIENT NOT FASTINGP ERFORMED BY: Avegant70 [facility] [id number] BY: [facility] [id number] Folate (93473)Ordered By: PolyServe stem Acid Tester on 01-01-2015 Folate mass conc 12.1 ng/mL Normal Comprehe ive Internal Medicine Work Phone: Comment on above: A serum folate antonio ntration of less than 3.1 ng/mL isconsidered to represent clinical deficiency. PATIENT NOT FASTINGP ERFORMED BY: Avegant70 [facility] [id number] BY: [facility] [id number] Food Allergy Profile (90536) Ordered By: Slag Mixer on 01-01-2015 Clam IgE Qn (S) <0.10 Normal Comprehen [facility] Internal [facility] Work Phone: Comment on above: PATIENT NOT FASTINGP ERFORMED BY: [employer] Isqfbn0011 [facility] [id number] BY: [facility] [id number] Codfish IgE Qn (S) <0.10 Normal Compre [facility] Internal Medicine Work Phone: Comment on above: PATIENT NOT FASTINGP ERFORMED BY: [employer] Bamodl5778 [address] [facility] [id number] BY: [address] [id number] [place] IgE Qn (S) 0.11 kU/L Abnormal Comprehen sive Internal Medicine Work Phone: Comment on above: PATIENT NOT FASTINGP ERFORMED BY: [facility] Uftsyh7418 [address] [facility] [id number] BY: Lab[address] [id number] Cow milk IgE Qn (S) <0.10 Normal Compr ehensive Internal Medicine Work Phone: Comment on above: PATIENT NOT FASTINGP ERFORMED BY: [facility] Qbpatq7052 [facility] [id number] BY: [address] [id number] Egg white IgE Qn (S) <0.10 Normal Comp rehensive Internal Medicine Work Phone: Comment on above: PATIENT NOT FASTINGP ERFORMED BY: [facility] Akxlgj2966 [address] [facility] [id number] BY: [address] [id number] Peanut IgE Qn (S) 0.14 kU/L Abnormal Compreh ensive Internal Medicine Work Phone: Comment on above: PATIENT NOT FASTINGP ERFORMED BY: [facility] Hnfzqq4497 [facility] [id number] BY: [address] [id number] Scallop IgE Qn (S) <0.10 Normal Compre hensive Internal Medicine Work Phone: Comment on above: PATIENT NOT FASTINGP ERFORMED BY: [facility] Xcchpc7131 [address] [facility] [id number] BY: [address] [id number] Sesame Seed IgE Qn (S) 0.21 kU/L Abnormal Co mprehensive Internal Medicine Work Phone: Comment on above: PATIENT NOT FASTINGP ERFORMED BY: CB [facility] Suujqc6466 [address] [facility] [id number] BY: [address] [id number] Shrimp IgE Qn (S) <0.10 Normal Compreh ensive Internal Medicine Work Phone: Comment on above: PATIENT NOT FASTINGP ERFORMED BY: CB [facility] Fkhosz6133 [address] [facility] [id number] BY: Lab[address] [id number] Soybean IgE Qn (S) <0.10 Normal Compre hensive Internal Medicine Work Phone: Comment on above: PATIENT NOT FASTINGP ERFORMED BY: CB [facility] Vrmoob1178 [address] [facility] [id number] BY: Lab[address] [id number] [place] IgE Qn (S) 0.16 kU/L Abnormal Compreh ensive Internal Medicine Work Phone: Comment on above: PATIENT NOT FASTINGP ERFORMED BY: CB [facility] Abavef7358 [facility] [id number] BY: Lab[address] [id number] Wheat IgE Qn (S) 0.16 kU/L Abnormal Comprehe nsive Internal Medicine Work Phone: Comment on above: PATIENT NOT FASTINGP ERFORMED BY: CB [facility] Vunlnc8337 [facility] [id number] BY: [address] [id number] Food Allergy Profile (32583) SPRCS Normal Comprehensive Internal Medicine Work Phone: Comment on above: Levels of Specific I gE Class Description of Class ----- < 0.10 0 Negative 0.10 - 0.31 0/I Equivocal/Low 0.32 - 0.55 I Low 0.56 - 1.40 II Moderate 1.41 - 3.90 III High 3.91 - 19.00 IV Very High 19.01 - 100.00 V Very High >100.00 Very High PATIENT NOT FASTINGP ERFORMED BY: [employer] Jqxvjg3057 [facility] [id number] BY: [facility] [id number] METABOLIC PANEL, COMPREHENSI VE (10483)Ordered By: Slag Mixer on 01-01-2015 Albumin mass conc 4.1 g/dL Normal 3.5-5.5 Compreh [facility] Internal Medicine Work Phone: Comment on above: PATIENT NOT FASTINGP ERFORMED BY: Amind6370 [facility] [id number] BY: [facility] [id number] Information: 683057,M12559 Albumin/Globulin mass ratio 1.5 {ratio} Normal 1.1-2.5 [facility] Medicine Work Phone: Comment on above: PATIENT NOT FASTINGP ERFORMED BY: Avegant70 [address] [facility] [id number] BY: [facility] [id number] Information: 431625,V53956 ALP [Catalytic activity/Vol] 83 U/L Normal 39-117 Comprehensive [facility]; [facility] Work Phone: ALP enzyme act/vol 83 [iU]/L Normal 39-117 Compre hensive Internal Medicine Work Phone: Comment on above: PATIENT NOT FASTINGP ERFORMED BY: Amind6370 [address] RoadDublin [place] [id number] BY: [employer] [id number] Information: 622148,Z08147 ALT [Catalytic activity/Vol] 12 U/L Normal 0-32 [facility]; [facility] Work Phone: ALT enzyme act/vol 12 [iU]/L Normal 0-32 [facility] Internal Medicine Work Phone: Comment on above: PATIENT NOT FASTINGP ERFORMED BY: [facility] Fpcueh5525 Vences RoadDublin [place] [id number] BY: [facility] CenterEverwise[address] [id number] Information: 183901,[id number] AST [Catalytic activity/Vol] 12 U/L Normal 0-40 Comprehensive Internal Medicine; [facility] Internal Medicine Work Phone: AST enzyme act/vol 12 [iU]/L Normal 0-40 [facility] Internal Medicine Work Phone: Comment on above: PATIENT NOT FASTINGP ERFORMED BY: [facility] Yfalwx8411 [address] RoadDublin [place] [id number] BY: [address] [id number] Information: 289857,H76635 Bilirubin mass conc 0.3 mg/dL Normal 0.0-1.2 [facility] Internal Medicine Work Phone: Comment on above: PATIENT NOT FASTINGP ERFORMED BY: [facility] Hrndcq9042 [address] RoadDublin [place] [id number] BY: [employer] [id number] Information: 870458,[id number] Calcium mass conc 9.6 mg/dL Normal 8.7-10.[address] [facility] Internal Medicine Work Phone: Comment on above: PATIENT NOT FASTINGP ERFORMED BY: [facility] Iyhvvg1822 [address] RoadDublin [place] [id number] BY: BN [facility] [address] [id number] Information: 375202,Y36966 Chloride molar conc 100 mmol/L Normal 97-108 Compr ehensive Internal Medicine Work Phone: Comment on above: PATIENT NOT FASTINGP ERFORMED BY: CB [facility] Zbbrkl9231 [address] RoadDublin [place] [id number] BY: BN [facility] [address] [id number] Information: 848134,K43883 CO2 molar conc 24 mmol/L Normal 18-29 Comprehens negar Internal Medicine Work Phone: Comment on above: PATIENT NOT FASTINGP ERFORMED BY: CB [facility] Iaxnqx2752 V[address] RoadECU [facility] [id number] BY: [facility] [id number] Information: 519850,Y83023 Creatinine mass conc 0.70 mg/dL Normal 0.57-1.00 Comp [facility] Internal [facility] Work Phone: Comment on above: PATIENT NOT FASTINGP ERFORMED BY: CB [facility] Madkty9714 [address] [facility] [id number] BY: [facility] [address] [id number] Information: 522772,R79255 GFR/1.73 sq M predicted among blacks CKD-EPI vol rate/area (S/P/Bld) 124 mL/min/1.73 Normal Comprehe nsive Internal Medicine Work Phone: Comment on above: PATIENT NOT FASTINGP ERFORMED BY: CB [facility] Fmwuce2373 [address] [facility] [place] [id number] BY: Lab[address] [id number] Information: 235573,L77627 GFR/1.73 sq M predicted among non-blacks CKD-EPI vol rate/area (S/P/Bld) 107 mL/min/1.73 Normal Comprehensive Internal Medicine Work Phone: Comment on above: PATIENT NOT FASTINGP ERFORMED BY: CB [facility] Nnrlqw6420 [address] RoadDublin [place] [id number] BY: BN [facility] [address] [id number] Information: 954384,H06995 Globulin mass conc (S) 2.7 g/dL Normal 1.5-4.5 Co [facility]erensive Internal Medicine Work Phone: Comment on above: PATIENT NOT FASTINGP ERFORMED BY: CB [facility] Czmvek6830 [address] RoadDublin [place] [id number] BY: [facility] [address] [id number] Information: 940501,F15782 Glucose mass conc 81 mg/dL Normal 65-99 Compreh ensive Internal Medicine Work Phone: Comment on above: PATIENT NOT FASTINGP ERFORMED BY: CB [facility] Dpteib9427 [address] RoadDublin [place] [id number] BY: [facility] [address] [id number] Information: 261648,B68601 Potassium molar conc 4.4 mmol/L Normal 3.5-5.2 [facility] Internal Medicine Work Phone: Comment on above: PATIENT NOT FASTINGP ERFORMED BY: CB [facility] Vbhenf0773 [address] [facility] [id number] BY: [facility] [address] [id number] Information: 153395,G59583 Protein mass conc 6.8 g/dL Normal 6.0-8.5 Compreh ensive Internal Medicine Work Phone: Comment on above: PATIENT NOT FASTINGP ERFORMED BY: CB [facility] Wesxkq2325 [address] RoadDublin [place] [id number] BY: [facility] [id number] Information: 115269,A63083 Sodium molar conc 142 mmol/L Normal 134-144 Compreh ensive Internal Medicine Work Phone: Comment on above: PATIENT NOT FASTINGP ERFORMED BY: MARCOS [facility] Uhsmow8871 [facility] [id number] BY: [facility] [id number] Information: 408205,W71505 Urea nitrogen mass conc 9 mg/dL Normal 6-24 C omprehensive Internal Medicine Work Phone: Comment on above: PATIENT NOT FASTINGP ERFORMED BY: MARCOS [facility] Lqwpzq2175 [facility] [id number] BY: [facility] [id number] Information: 177565,V33632 Urea nitrogen/Creatinine mass ratio 13 mg/mg Normal 9-23 [facility] Medicine Work Phone: Comment on above: PATIENT NOT FASTINGP ERFORMED BY: MARCOS [facility] Xmdbop1854 [facility] [id number] BY: [facility] [id number] Information: 323135,H17877 Methymalonic Acid, Serum (83 921)Ordered By: Slag Mixer on 01-01-2015 Methylmalonate molar conc 140 nmol/L Normal 0-378 [facility] Work Phone: Comment on above: PATIENT NOT FASTINGP ERFORMED BY: CB [facility] Qqlggs7291 [facility] [id number] BY: [address] [id number] RHEUMATOID FACTOR-QUANT (419 89)Ordered By: Slag Mixer on 01-01-2015 Rheumatoid factor Qn 8.3 {IU/mL} Normal 0.0-13.9 [facility] prehensive Internal Medicine Work Phone: Comment on above: PATIENT NOT FASTINGP ERFORMED BY: CB [facility] Dqnwzr7679 [facility] [id number] BY: [facility] [employer] [id number] Rheumatoid factor Qn 8.3 [IU]/mL Normal 0.0-13.9 [facility] prehensive Internal Medicine; [facility] Work Phone: SED RATE ERYTHROCYTE ([id number]) Ordered By: Slag Mixer on 01-01-2015 ESR Velocity (Bld) 3 mm/h Normal 0-32 Compre hensive Internal Medicine Work Phone: Comment on above: PATIENT NOT FASTINGP ERFORMED BY: MARCOS [employer] [facility] [id number] BY: [employer] [address] [id number] T3, FREE (TRIDOTHYRONINE) (6 9735)Ordered By: Slag Mixer on 01-01-2015 T3 free mass conc 2.7 pg/mL Normal 2.0-4.4 Compreh ensive Internal Medicine Work Phone: Comment on above: PATIENT NOT FASTINGP ERFORMED BY: MARCOS [employer]6370 [facility] [id number] BY: [employer] [address] [id number] T4, FREE (THYROXINE) (97450) Ordered By: Slag Mixer on 01-01-2015 T4 free mass conc 1.06 ng/dL Normal 0.82-1.77 Compreh ensive Internal Medicine Work Phone: Comment on above: PATIENT NOT FASTINGP ERFORMED BY: THERAVECTYS Doeneg1664 [facility] [id number] BY: [facility] [employer] [id number] TSH ([id number])Ordered By: [employer] m Acid Tester on 01-01-2015 Thyrotropin Qn 2.290 {uIU/mL} Normal 0.450-4.50 0 [facility] Work Phone: Comment on above: PATIENT NOT FASTINGP ERFORMED BY: [facility]6370 [facility] [id number] BY: [place] [address] [facility] [id number] VITAMIN B-12 (CYANOCOBALAMIN ) (17034)Ordered By: Slag Mixer on 01-01-2015 Cobalamin (Vitamin B12) mass conc 358 pg/mL Normal 211-946 [facility] Work Phone: Comment on above: PATIENT NOT FASTINGP ERFORMED BY: [place] 2334770 [facility] [id number] BY: [address] [id number] CBC WITH MANUAL DIFF (13637) Ordered By: Slag Mixer on 09-29-2013 Basophils #/vol (Bld) 0.0 {x10E3/uL} Normal 0.0-0.2 [facility] Work Phone: Comment on above: PATIENT WAS FASTINGP ERFORMED BY: [facility]6370 [facility] [id number] Information: [id number] Basophils (Bld) [#/Vol] 0.0 10*3/uL Normal 0.0-0.2 [facility]; [facility] Work Phone: Basophils/100 WBC (Bld) 1 % Normal 0-3 C omprehensive Internal Medicine Work Phone: Comment on above: PATIENT WAS FASTINGP ERFORMED BY: [facility]6370 [facility] [id number] Information: [id number] Eosinophils #/vol (Bld) 0.1 {x10E3/uL} Normal 0.0-0.4 [facility] Work Phone: Comment on above: PATIENT WAS FASTINGP ERFORMED BY: [place] 2334770 [facility] [id number] Information: [id number] Eosinophils (Bld) [#/Vol] 0.1 10*3/uL Normal 0.0-0.4 [facility]; [facility] Work Phone: Eosinophils/100 WBC (Bld) 1 % Normal 0-5 [facility] Work Phone: Comment on above: PATIENT WAS FASTINGP ERFORMED BY: [place] 2334770 [facility] [id number] Information: [id number] Erythrocyte distribution width Ratio (RBC) 13.3 % Normal 12.3-15.4 [facility] Work Phone: Comment on above: PATIENT WAS FASTINGP ERFORMED BY: [address] [id number] Information: [id number] Hematocrit Volume Fraction (Bld) 38.6 % Normal 34.0-46.6 [facility] Work Phone: Comment on above: PATIENT WAS FASTINGP ERFORMED BY: [address] [id number] Information: [id number] Hemoglobin mass conc (Bld) 13.2 g/dL Normal 11.1-15.9 [facility] Work Phone: Comment on above: PATIENT WAS FASTINGP ERFORMED BY: [address] [id number] Information: [id number] Immature granulocytes #/vol (Bld) 0.0 {x10E3/uL} Normal 0.0-0.1 [facility] Work Phone: Comment on above: PATIENT WAS FASTINGP ERFORMED BY: [place] 2334770 [facility] [id number] Information: [id number] Immature granulocytes (Bld) [#/Vol] 0.0 10*3/uL Normal 0.0-0.1 [facility]; [facility] Work Phone: Immature granulocytes/100 WBC (Bld) 0 % Normal 0-2 [facility] Work Phone: Comment on above: PATIENT WAS FASTINGP ERFORMED BY: [facility]6370 [facility] [id number] Information: [id number] Lymphocytes #/vol (Bld) 1.9 {x10E3/uL} Normal 0.7-3.1 [facility] Work Phone: Comment on above: PATIENT WAS FASTINGP ERFORMED BY: [address] [id number] Information: [id number] Lymphocytes (Bld) [#/Vol] 1.9 10*3/uL Normal 0.7-3.1 [facility]; [facility] Work Phone: Lymphocytes/100 WBC (Bld) 25 % Normal 14-46 [facility] Work Phone: Comment on above: PATIENT WAS FASTINGP ERFORMED BY: [address] [id number] Information: [id number] MCH Entitic mass (RBC) 30.8 pg Normal 26.6-33.0 [facility] Internal Medicine Work Phone: Comment on above: PATIENT WAS FASTINGP ERFORMED BY: [address] [id number] Information: [id number] MCHC mass conc (RBC) 34.2 g/dL Normal 31.5-35.7 [facility] Internal Medicine Work Phone: Comment on above: PATIENT WAS FASTINGP ERFORMED BY: [facility]6370 [facility] [id number] Information: [id number] MCV Entitic volume (RBC) 90 fL Normal 79-97 [facility] Internal Medicine Work Phone: Comment on above: PATIENT WAS FASTINGP ERFORMED BY: [place] 2334770 [facility] [id number] Information: [id number] Monocytes #/vol (Bld) 0.6 {x10E3/uL} Normal 0.1-0.9 [facility] Work Phone: Comment on above: PATIENT WAS FASTINGP ERFORMED BY: MARCOS Cruz6370 [facility] [id number] Information: [id number] Monocytes (Bld) [#/Vol] 0.6 10*3/uL Normal 0.1-0.9 [facility]; [facility] Work Phone: Monocytes/100 WBC (Bld) 8 % Normal 4-12 C omprehensive Internal Medicine Work Phone: Comment on above: PATIENT WAS FASTINGP ERFORMED BY: MARCOS Maki[address] [id number] Information: [id number] Neutrophils #/vol (Bld) 4.9 {x10E3/uL} Normal 1.4-7.0 [facility] Work Phone: Comment on above: PATIENT WAS FASTINGP ERFORMED BY: MARCOS Makilin6370 [facility] [id number] Information: [id number] Neutrophils (Bld) [#/Vol] 4.9 10*3/uL Normal 1.4-7.0 [facility]; [facility] Work Phone: Neutrophils/100 WBC (Bld) 65 % Normal 40-74 [facility] Work Phone: Comment on above: PATIENT WAS FASTINGP ERFORMED BY: MARCOS LabCohamlet MakiPqrrft3342 [facility] [id number] Information: [id number] Platelets #/vol (Bld) 236 {x10E3/uL} Normal 155-379 [facility] Work Phone: Comment on above: PATIENT WAS FASTINGP ERFORMED BY: MARCOS [address] [id number] Information: [id number] Platelets (Bld) [#/Vol] 236 10*3/uL Normal 155-379 [facility]; [facility] Work Phone: RBC #/vol (Bld) 4.28 {x10E6/uL} Normal 3.77-5.28 Comp [facility] Work Phone: Comment on above: PATIENT WAS FASTINGP ERFORMED BY: [facility] [employer] Bughtq3631 [facility] [id number] Information: [id number] RBC (Bld) [#/Vol] 4.28 10*6/uL Normal 3.77-5.28 Compr ensive Internal Medicine; [facility] Work Phone: WBC #/vol (Bld) 7.6 {x10E3/uL} Normal 3.4-10.8 Compr [facility] Internal Medicine Work Phone: Comment on above: PATIENT WAS FASTINGP ERFORMED BY: [facility] Wjzrmq8679 [facility] [id number] Information: [id number] WBC (Bld) [#/Vol] 7.6 10*3/uL Normal 3.4-10.8 [facility]; [facility] Work Phone: LIPID PANEL (59593)Ordered B y: Slag Mixer on 09-29-2013 Cholesterol in HDL mass conc 72 mg/dL Normal [facility] Work Phone: Comment on above: According to ATP-III Guidelines, HDL-C >59 mg/dL is considered anegative risk factor for CHD. PATIENT WAS FASTINGP ERFORMED BY: [employer] LabCodeGuard Dyptoy[address] SocStockCarePartners Rehabilitation Hospital [id number] Cholesterol in LDL mass conc 108 mg/dL Abnormal 0-99 [facility] Work Phone: Comment on above: PATIENT WAS FASTINGP ERFORMED BY: [employer] LabEverwiserp Gryijl8836 [facility] [id number] Cholesterol in LDL/Cholesterol in HDL mass ratio 1.5 {ratio_units} Normal 0.0-3.2 [facility] Work Phone: Comment on above: PATIENT WAS FASTINGP ERFORMED BY: MARCOS [facility] Zehlfr4417 [address] Roadblin [place] [id number] Cholesterol in VLDL mass conc 7 mg/dL Normal 5-40 [facility] Work Phone: Comment on above: PATIENT WAS FASTINGP ERFORMED BY: MARCOS [facility] Iipvkg0606 [address] Roadblin [place] [id number] Cholesterol mass conc 187 mg/dL Normal 100-199 Com prehensive Internal Medicine Work Phone: Comment on above: PATIENT WAS FASTINGP ERFORMED BY: MARCOS [facility] Bpqotq5118 [address] Roadbl[address] [place] [id number] Triglyceride mass conc 36 mg/dL Normal 0-149 Co mprehensive [facility] Medicine Work Phone: Comment on above: PATIENT WAS FASTINGP ERFORMED BY: MARCOS [facility] Cdcbka7[address] [facility] [place] [id number] METABOLIC PANEL, COMPREHENSI VE (06202)Ordered By: Slag Mixer on 09-29-2013 Albumin mass conc 4.3 g/dL Normal 3.5-5.5 Compreh ensive Internal Medicine Work Phone: Comment on above: PATIENT WAS FASTINGP ERFORMED BY: MARCOS [facility] Mqoqyj[address] [facility] [place] [id number] Albumin/Globulin mass ratio 2.0 {ratio} Normal 1.1-2.5 [facility] Work Phone: Comment on above: PATIENT WAS FASTINGP ERFORMED BY: MARCOS [facility] Iupgsn[address] [facility] [place] [id number] ALP [Catalytic activity/Vol] 90 U/L Normal 39-117 [facility]; [facility] Work Phone: ALP enzyme act/vol 90 [iU]/L Normal 39-117 Compre hensive Internal Medicine Work Phone: Comment on above: PATIENT WAS FASTINGP ERFORMED BY: MARCOS [facility] Rbrnaj3309 [address] RoadDublin [place] [id number] ALT [Catalytic activity/Vol] 16 U/L Normal 0-32 [facility]; [facility] Internal Medicine Work Phone: ALT enzyme act/vol 16 [iU]/L Normal 0-32 [facility] Internal Medicine Work Phone: Comment on above: PATIENT WAS FASTINGP ERFORMED BY: MARCOS LabAntonio MakiHlbwjg6955 [address] Roadblin [place] [id number] AST [Catalytic activity/Vol] 17 U/L Normal 0-40 [facility] Internal Medicine; [facility] Medicine Work Phone: AST enzyme act/vol 17 [iU]/L Normal 0-40 [facility] Internal Medicine Work Phone: Comment on above: PATIENT WAS FASTINGP ERFORMED BY: MARCOS LabAntonio MakiDlsmcu6999 [address] RoadSelect [facility] Hospital [facility] Durhamin [place] [id number] Bilirubin mass conc 0.6 mg/dL Normal 0.0-1.2 Compr [facility] Internal Medicine Work Phone: Comment on above: PATIENT WAS FASTINGP ERFORMED BY: MARCOS Makilin[address] [facility] [place] [id number] Calcium mass conc 9.4 mg/dL Normal 8.7-10.2 Compreh [facility] hospitalive Internal Medicine Work Phone: Comment on above: PATIENT WAS FASTINGP ERFORMED BY: MARCOS Makilin[address] [facility] [id number] Chloride molar conc 102 mmol/L Normal 97-108 Compr [facility] Internal Medicine Work Phone: Comment on above: PATIENT WAS FASTINGP ERFORMED BY: MARCOS LabCohamlet MakiMdqwqj12[address] [facility] [place] [id number] CO2 molar conc 26 mmol/L Normal 19-28 Comprehens [facility] Internal Medicine Work Phone: Comment on above: PATIENT WAS FASTINGP ERFORMED BY: MARCOS LabCohamlet Nwohun[address] [facility] [place] [id number] Creatinine mass conc 0.71 mg/dL Normal 0.57-1.00 Comp [facility] Work Phone: Comment on above: PATIENT WAS FASTINGP ERFORMED BY: MARCOS [facility]Tr[facility]6370 [facility] [id number] GFR/1.73 sq M predicted among blacks CKD-EPI vol rate/area (S/P/Bld) 122 mL/min/1.73 Normal Comprehe nsive Internal Medicine Work Phone: Comment on above: PATIENT WAS FASTINGP ERFORMED BY: MARCOS [facility]6370 [facility] [id number] GFR/1.73 sq M predicted among non-blacks CKD-EPI vol rate/area (S/P/Bld) 106 mL/min/1.73 Normal [facility] Work Phone: Comment on above: PATIENT WAS FASTINGP ERFORMED BY: MARCOS [facility]atoSaint [facility] Gfoedm7279 [facility] [id number] Globulin mass conc (S) 2.2 g/dL Normal 1.5-4.5 Co mprehensive Internal Medicine Work Phone: Comment on above: PATIENT WAS FASTINGP ERFORMED BY: MARCOS [facility]atoSaint [facility] Wbhdka9365 [facility] [id number] Glucose mass conc 90 mg/dL Normal 65-99 Compreh ensive Internal Medicine Work Phone: Comment on above: PATIENT WAS FASTINGP ERFORMED BY: MARCOS [facility]atoSaint [facility] Coarxo5144 [facility] [id number] Potassium molar conc 4.2 mmol/L Normal 3.5-5.2 Comp rehensive Internal Medicine Work Phone: Comment on above: PATIENT WAS FASTINGP ERFORMED BY: MARCOS [facility]atoTr[facility] Hospital6370 [facility] [id number] Protein mass conc 6.5 g/dL Normal 6.0-8.5 Compreh ensive Internal Medicine Work Phone: Comment on above: PATIENT WAS FASTINGP ERFORMED BY: MARCOS [place] 7092770 [facility] [id number] Sodium molar conc 140 mmol/L Normal 134-144 Compreh ensive Internal Medicine Work Phone: Comment on above: PATIENT WAS FASTINGP ERFORMED BY: MARCOS [facility] Owlnbh5424 [address] RoadDublin [place] [id number] Urea nitrogen mass conc 7 mg/dL Normal 6-24 C omprehensive Internal Medicine Work Phone: Comment on above: PATIENT WAS FASTINGP ERFORMED BY: [facility] Ejhuai7[address] RoadDublin [place] [id number] Urea nitrogen/Creatinine mass ratio 10 mg/mg Normal 9-23 [facility] Work Phone: Comment on above: PATIENT WAS FASTINGP ERFORMED BY: [facility] Fkzjsg9863 [address] RoadDublin [place] [id number] Microscopic ExaminationOrder ed By: Slag Mixer on 09-29-2013 Bacteria LM.HPF #/area (Urine sed) Few Normal [facility] Work Phone: Comment on above: PATIENT WAS FASTINGP ERFORMED BY: [facility] Gckumt2269 [address]bl[address] [place] [id number] Epithelial cells LM.HPF #/area (Urine sed) /[HPF] Abnormal 0 - 10 [facility] Work Phone: Comment on above: PATIENT WAS FASTINGP ERFORMED BY: [facility] Zqphmk7801 [address]Dublin [place] [id number] Mucus Ql (Urine sed) Present Normal Comp rehensive Internal Medicine Work Phone: Comment on above: PATIENT WAS FASTINGP ERFORMED BY: [facility] Zklwpo0233 [address] RoadDublin [place] [id number] RBC LM.HPF #/area (Urine sed) 0-3 Normal 0 - 3 [facility] Work Phone: Comment on above: PATIENT WAS FASTINGP ERFORMED BY: [facility] Jnflib8733 [address] RoadDublin [place] [id number] WBC LM.HPF #/area (Urine sed) 0-5 Normal 0 - 5 [facility] Work Phone: Comment on above: PATIENT WAS FASTINGP ERFORMED BY: [facility] Pwvnil3992 [address]Dublin [place] [id number] TSH ([id number])Ordered By: Syste m Acid Tester on 09-29-2013 Thyrotropin Qn 1.710 {uIU/mL} Normal 0.450-4.50 0 [facility] Work Phone: Comment on above: PATIENT WAS FASTINGP ERFORMED BY: MARCOS LabAntonio MakiOlpbnz7986 [address] RoadDublin [place] [id number] URINALYSIS, W/ MICRO ([id number]) Ordered By: Slag Mixer on 09-29-2013 Appearance Nom (U) Clear Normal Compre hensive Internal Medicine Work Phone: Comment on above: PATIENT WAS FASTINGP ERFORMED BY: MARCOS Makilin6[address] [place] [id number] Bilirubin Ql (U) Negative Normal Comprehe nsive Internal Medicine Work Phone: Comment on above: PATIENT WAS FASTINGP ERFORMED BY: MARCOS Makilin6[address] [place] [id number] Bilirubin Ql (U) Negative Normal Comprehe nsive Internal Medicine; [facility] Work Phone: Color Nom (U) Yellow Normal Comprehensi ve Internal Medicine Work Phone: Comment on above: PATIENT WAS FASTINGP ERFORMED BY: MARCOS Makilin[address] [place] [id number] Glucose Ql (U) Negative Normal Comprehens negar Internal Medicine Work Phone: Comment on above: PATIENT WAS FASTINGP ERFORMED BY: MARCOS LabAntonio MakiIjcmjh9182 [address]Dublin [place] [id number] Glucose Ql (U) Negative Normal Comprehens negar Internal Medicine; [facility] Work Phone: Hemoglobin Ql (U) Negative Normal Compreh ensive Internal Medicine Work Phone: Comment on above: PATIENT WAS FASTINGP ERFORMED BY: MARCOS LabAntonio MakiRavewc2041 [address]Dublin [place] [id number] Hemoglobin Ql (U) Negative Normal Compreh ensive Internal Medicine; [facility] Work Phone: Ketones Ql (U) Negative Normal Comprehens negar Internal Medicine Work Phone: Comment on above: PATIENT WAS FASTINGP ERFORMED BY: MARCOS [facility] Rknepm4522 [address]Dublin [place] [id number] Ketones Ql (U) Negative Normal Comprehens negar Internal Medicine; [facility] Work Phone: Leukocyte esterase Test strip Ql (U) Negative Normal [facility] Work Phone: Comment on above: PATIENT WAS FASTINGP ERFORMED BY: MARCSO [facility] Iyfjdp1236 [address]Dublin [place] [id number] Leukocyte esterase Test strip Ql (U) Negative Normal [facility]; [facility] Work Phone: Microscopic observation LM Nom (Urine sed) See below: Normal [facility] Work Phone: Comment on above: PATIENT WAS FASTINGP ERFORMED BY: MARCOS LabCohamlet MakiKhzhtw1072 [address]Dublin [place] [id number] Microscopic observation LM Nom (Urine sed) MICRON Normal [facility] Work Phone: Comment on above: Microscopic follows if indicated. PATIENT WAS FASTINGP ERFORMED BY: MARCOS [facility] Ijijwz4779 [address]Dublin [place] [id number] Nitrite Ql (U) Negative Normal Comprehens negar Internal Medicine Work Phone: Comment on above: PATIENT WAS FASTINGP ERFORMED BY: MARCOS [facility] Dzpzza1643 [address]Dublin [place] [id number] Nitrite Ql (U) Negative Normal Comprehens negar Internal Medicine; [facility] Work Phone: pH (U) 6.0 [pH] Normal 5.0-7.5 [facility] Work Phone: Comment on above: PATIENT WAS FASTINGP ERFORMED BY: MARCOS [facility] Aljdlt0311 [address]Dublin [place] [id number] Protein Ql (U) Negative Normal Comprehens negar Internal Medicine Work Phone: Comment on above: PATIENT WAS FASTINGP ERFORMED BY: MARCOS [facility] Gkkpao1495 [address]Dublin [place] [id number] Protein Ql (U) Negative Normal Comprehens negar Internal Medicine; [facility] Work Phone: Specific gravity Relative Density (U) 1.021 1 Normal 1.005-1.03 0 [facility] Work Phone: Comment on above: PATIENT WAS FASTINGP ERFORMED BY: MARCOS Simbol MaterialsAntonio MakiKaqhhz8682 [facility]biCarePart[facility] Rehabilitation Hospital [id number] Urobilinogen (U) [Mass/Vol] 0.2 mg/dL Normal 0.0-1.9 [facility]; [facility] Work Phone: Urobilinogen Test strip mass conc (U) 0.2 mg/dL Normal 0.0-1.9 [facility] Work Phone: Comment on above: PATIENT WAS FASTINGP ERFORMED BY: MARCOS Makilin6370 [facility]imbiCarePart[facility] Rehabilitation Hospital [id number] Office Visiton 09-16-2012 Tobacco smoking status [facility] never smoker Invalid Interpretation Code [facility] Work Phone: TREE (ANTINUCLEAR ANTIBODY) ( [id number])Ordered By: Slag Mixer on 06-18-2012 Nuclear Ab Ql (S) Negative Normal Compreh ensive Internal Medicine Work Phone: Comment on above: PATIENT NOT FASTINGP ERFORMED BY: MARCOS Makilin6370 VencesIntronisCarePartners Rehabilitation Hospital [id number] Nuclear Ab Ql (S) Negative Normal Compreh ensive Internal Medicine; [facility] Work Phone: C-REACTIVE PROTEIN (14028)Or dered By: Slag Mixer on 06-18-2012 CRP mass conc 4.9 mg/L Normal 0.0-4.9 Comprehensi ve Internal Medicine Work Phone: Comment on above: PATIENT NOT FASTINGP ERFORMED BY: MARCOS Simbol MaterialsAntonio MakiMzqxbc8160 [facility]imbiCarePart[facility] [id number] CALCIFIDIOL (64843) VIT D 25 Ordered By: Slag Mixer on 06-18-2012 25-Hydroxyvitamin D2+25-Hydroxyvitamin D3 mass conc 31.7 ng/mL Normal 30.0-100.0 [facility] Work Phone: Comment on above: Vitamin D deficiency has been defined by the [facility] and an Endocrine Society practice guideline as alevel of serum 25-OH vitamin D less than 20 ng/mL (1,2).The Endocrine Society went on to further define vitamin Dinsufficiency as a level between 21 and 29 ng/mL (2).1. IOM ([facility]). 2010. Dietary reference intakes for calcium and D. [place]: The National Academies Press.2. Ashwini MF, Luis SUAREZ, Keanu KAY, et al. Evaluation, treatment, and prevention of vitamin D deficiency: an Endocrine Society clinical practice guideline. JCEM. 2010; 96(7):1911-30. PATIENT NOT FASTINGP ERFORMED BY: CB [facility] Zvdjxc1420 [address]Dublin [place] [id number] CBC (AUTO) (53619)Ordered By : Slag Mixer on 06-18-2012 Erythrocyte distribution width Ratio (RBC) 13.5 % Normal 12.3-15.4 [facility] Work Phone: Comment on above: PATIENT NOT FASTINGP ERFORMED BY: CB [facility] Zccxkn7321 [address]Dublin [place] [id number] Hematocrit Volume Fraction (Bld) 40.5 % Normal 34.0-46.6 [facility] Work Phone: Comment on above: PATIENT NOT FASTINGP ERFORMED BY: CB [facility] Lrxpbc7963 [address]Dublin [place] [id number] Hemoglobin mass conc (Bld) 13.8 g/dL Normal 11.1-15.9 [facility] Work Phone: Comment on above: PATIENT NOT FASTINGP ERFORMED BY: CB [facility] Osdquo7255 [address]Dublin [place] [id number] MCH Entitic mass (RBC) 30.6 pg Normal 26.6-33.0 [facility] Internal Medicine Work Phone: Comment on above: PATIENT NOT FASTINGP ERFORMED BY: CB [facility] Whnccj1406 [address]Dublin [place] [id number] MCHC mass conc (RBC) 34.1 g/dL Normal 31.5-35.7 Comp rehensive Internal Medicine Work Phone: Comment on above: PATIENT NOT FASTINGP ERFORMED BY: MARCOS [facility] Zmustb3292 [facility] [id number] MCV Entitic volume (RBC) 90 fL Normal 79-97 [facility] Work Phone: Comment on above: PATIENT NOT FASTINGP ERFORMED BY: CB [facility] Qdcpmq0797 [facility] [id number] Platelets #/vol (Bld) 261 {x10E3/uL} Normal 140-415 [facility] Work Phone: Comment on above: PATIENT NOT FASTINGP ERFORMED BY: CB [facility] Qxentr4178 [facility] [id number] Platelets (Bld) [#/Vol] 261 10*3/uL Normal 140-415 [facility]; [facility] Work Phone: RBC #/vol (Bld) 4.51 {x10E6/uL} Normal 3.77-5.28 Comp rehensive Internal Medicine Work Phone: Comment on above: PATIENT NOT FASTINGP ERFORMED BY: CB [facility] Yckvqf0129 [facility] [id number] RBC (Bld) [#/Vol] 4.51 10*6/uL Normal 3.77-5.28 Compr ehensive Internal Medicine; [facility] Work Phone: WBC #/vol (Bld) 6.5 {x10E3/uL} Normal 4.0-10.5 Compr ehensive Internal Medicine Work Phone: Comment on above: PATIENT NOT FASTINGP ERFORMED BY: CB [facility] Eoezrk7450 [facility] [id number] WBC (Bld) [#/Vol] 6.5 10*3/uL Normal 4.0-10.5 [facility]pre [facility]; [facility] Work Phone: Folate ([id number])Ordered By: Sy stem Acid Tester on 06-18-2012 Folate mass conc 16.3 ng/mL Normal Comprehe nsive Internal Medicine Work Phone: Comment on above: A serum folate antonio ntration of less than 3.1 ng/mL isconsidered to represent clinical deficiency. PATIENT NOT FASTINGP ERFORMED BY: MARCOS [facility] Bfzste0892 [facility] [place] [id number] METABOLIC PANEL, COMPREHENSI VE ([id number])Ordered By: Slag Mixer on 06-18-2012 Albumin mass conc 4.6 g/dL Normal 3.5-5.[address] Internal Medicine Work Phone: Comment on above: PATIENT NOT FASTINGP ERFORMED BY: CB [facility] Xqizeh2079 [facility] [id number] Information: [id number] Albumin/Globulin mass ratio 1.8 {ratio} Normal 1.1-2.5 [facility] Work Phone: Comment on above: PATIENT NOT FASTINGP ERFORMED BY: CB [facility] Dwnxcg6447 [facility] [id number] Information: [id number] ALP [Catalytic activity/Vol] 102 U/L Normal 25-150 [facility]; [facility] Work Phone: ALP enzyme act/vol 102 [iU]/L Normal 25-150 [facility] Internal Medicine Work Phone: Comment on above: PATIENT NOT FASTINGP ERFORMED BY: CB [facility] Zixeeo7632 [facility] [id number] Information: [id number] ALT [Catalytic activity/Vol] 16 U/L Normal 0-40 [facility]; [facility] Work Phone: ALT enzyme act/vol 16 [iU]/L Normal 0-40 [facility] Internal Medicine Work Phone: Comment on above: PATIENT NOT FASTINGP ERFORMED BY: CB [facility] Udbtyr8362 [facility] [place] [id number] Information: [id number] AST [Catalytic activity/Vol] 18 U/L Normal 0-40 [facility]; [facility] Work Phone: AST enzyme act/vol 18 [iU]/L Normal 0-40 [facility]pre [facility] Internal Medicine Work Phone: Comment on above: PATIENT NOT FASTINGP ERFORMED BY: MARCOS [facility] MakiDbtskb0898 [facility] [id number] Information: [id number] Bilirubin mass conc 0.5 mg/dL Normal 0.0-1.2 Compr ensive Internal Medicine Work Phone: Comment on above: PATIENT NOT FASTINGP ERFORMED BY: MARCOS [facility] Dcleyn2034 [facility] [id number] Information: [id number] Calcium mass conc 9.4 mg/dL Normal 8.7-10.2 Compreh [facility] Internal [facility] Work Phone: Comment on above: PATIENT NOT FASTINGP ERFORMED BY: MARCOS [facility] Jnulor3235 [facility] [id number] Information: [id number] Chloride molar conc 101 mmol/L Normal 97-108 Compr [facility] Internal Medicine Work Phone: Comment on above: PATIENT NOT FASTINGP ERFORMED BY: MARCOS [facility] Bvzmos6199 [facility] [id number] Information: [id number] CO2 molar conc 23 mmol/L Normal 20-32 Comprehens negar Internal Medicine Work Phone: Comment on above: PATIENT NOT FASTINGP ERFORMED BY: MARCOS [facility] Ohxsis7312 [facility] [id number] Information: [id number] Creatinine mass conc 0.73 mg/dL Normal 0.57-1.00 Comp [facility] Internal Medicine Work Phone: Comment on above: PATIENT NOT FASTINGP ERFORMED BY: MARCOS [facility] Zgnpse4567 [facility] [id number] Information: [id number] GFR/1.73 sq M predicted among blacks CKD-EPI vol rate/area (S/P/Bld) 119 mL/min/1.73 Normal Comprehe nsive Internal Medicine Work Phone: Comment on above: PATIENT NOT FASTINGP ERFORMED BY: MARCOS Makilin6370 [facility] [id number] Information: [id number] GFR/1.73 sq M predicted among non-blacks CKD-EPI vol rate/area (S/P/Bld) 103 mL/min/1.73 Normal [facility] Work Phone: Comment on above: PATIENT NOT FASTINGP ERFORMED BY: MARCOS [facility]6370 [facility] [id number] Information: [id number] Globulin mass conc (S) 2.6 g/dL Normal 1.5-4.5 Co mprehensive Internal Medicine Work Phone: Comment on above: PATIENT NOT FASTINGP ERFORMED BY: MARCOS [facility]6370 [facility] [id number] Information: [id number] Glucose mass conc 107 mg/dL Abnormal 65-99 Compreh ensive Internal Medicine Work Phone: Comment on above: PATIENT NOT FASTINGP ERFORMED BY: MARCOS Zuluaga Hdqamv6420 [facility] [id number] Information: [id number] Potassium molar conc 4.0 mmol/L Normal 3.5-5.2 Comp rehensive Internal Medicine Work Phone: Comment on above: PATIENT NOT FASTINGP ERFORMED BY: MARCOS [facility] Kuyoum2508 [facility] [id number] Information: [id number] Protein mass conc 7.2 g/dL Normal 6.0-8.5 Compreh ensive Internal Medicine Work Phone: Comment on above: PATIENT NOT FASTINGP ERFORMED BY: MARCOS [facility] CenterAmvzoh2677 [facility] [id number] Information: [id number] Sodium molar conc 140 mmol/L Normal 134-144 Compreh ensive Internal Medicine Work Phone: Comment on above: PATIENT NOT FASTINGP ERFORMED BY: MARCOS Cruz6370 [facility] [id number] Information: [id number] Urea nitrogen mass conc 10 mg/dL Normal 6-24 C omprehensive Internal Medicine Work Phone: Comment on above: PATIENT NOT FASTINGP ERFORMED BY: MARCOS [facility] Jhmjjn3282 [facility] [id number] Information: [id number] Urea nitrogen/Creatinine mass ratio 14 mg/mg Normal 9-23 [facility] Work Phone: Comment on above: PATIENT NOT FASTINGP ERFORMED BY: MARCOS Zan Smuuua1017 [facility] [id number] Information: [id number] RHEUMATOID FACTOR-QUANT (866 14)Ordered By: Slag Mixer on 06-18-2012 Rheumatoid factor Qn 8.6 {IU/mL} Normal 0.0-13.9 Com prehensive Internal Medicine Work Phone: Comment on above: PATIENT NOT FASTINGP ERFORMED BY: MARCOS Roxana Cruz6370 [facility] [id number] Rheumatoid factor Qn 8.6 [IU]/mL Normal 0.0-13.9 Com prehensive Internal Medicine; [facility] Work Phone: SED RATE ERYTHROCYTE ([id number]) Ordered By: Slag Mixer on 06-18-2012 ESR Velocity (Bld) 2 mm/h Normal 0-32 Compre [facility] Internal Medicine Work Phone: Comment on above: PATIENT NOT FASTINGP ERFORMED BY: MARCOS [facility] Ykixwg3971 [facility] [id number] TSH ([id number])Ordered By: Tap[employer] m Acid Tester on 06-18-2012 Thyrotropin Qn 1.640 {uIU/mL} Normal 0.450-4.50 0 [facility] Work Phone: Comment on above: PATIENT NOT FASTINGP ERFORMED BY: MARCOS [facility]Co[facility] CenterTqhieb9387 [facility] [id number] VITAMIN B-12 (CYANOCOBALAMIN ) ([id number])Ordered By: Slag Mixer on 06-18-2012 Cobalamin (Vitamin B12) mass conc 582 pg/mL Normal 211-946 [facility] Work Phone: Comment on above: PATIENT NOT FASTINGP ERFORMED BY: MARCOS [facility] Kntnjc9450 [facility] [id number] Clinical Lists Update: Pre12-09-2011 Potassium molar conc 4.1 mmol/L Normal 3.5-5.1 [facility] Work Phone: Clinical Lists Update: Pre11-06-2011 Anion gap 4 molar conc 12 Invalid Interpretation Code [facility] Work Phone: Calcium mass conc 8.7 mg/dL Invalid Interpretation Code [facility] Work Phone: Chloride molar conc 99 mmol/L Invalid Interpretation Code [facility] Work Phone: CO2 ppres (BldV) 27.0 mmol/L Invalid Interpretation Code [facility] Work Phone: Creatinine mass conc 0.7 mg/dL Invalid Interpretation Code [facility] Work Phone: Glucose mass conc 100 mg/dL Invalid Interpretation Code [facility] Work Phone: Hematocrit Auto Volume Fraction (Bld) 38.9 % Invalid Interpretation Code [facility] Work Phone: Hemoglobin mass conc (Bld) 13.6 g/dL Invalid Interpretation Code [facility] Work Phone: MCH Auto Entitic mass (RBC) 31.6 pg Invalid Interpretation Code [facility] Work Phone: MCV Auto Entitic volume (RBC) 90.3 fL Invalid Interpretation Code [facility] Work Phone: Platelets Auto #/vol (Bld) 231 10*3/mm3 Invalid Interpretation Code [facility] Work Phone: RBC Auto #/vol (Bld) 4.30 10*6/uL Invalid Interpretation Code [facility] Work Phone: Sodium molar conc 138 mmol/L Invalid Interpretation Code [facility] Work Phone: Urea nitrogen mass conc 8 mg/dL Invalid Interpretation Code [facility] Work Phone: Urea nitrogen/Creatinine mass ratio 11.4 mg/mg Invalid Interpretation Code [facility] Work Phone: WBC Auto #/vol (Bld) 9.7 10*3/uL Invalid Interpretation Code [facility] Work Phone: TREE DIR SEMI-QLOrdered By: Sergio eMetertem Acid Tester on 10-03-2011 TREE DIR SEMI-QL 113 AU/mL Abnormal Comprehen [facility] Internal [facility] Work Phone: Comment on above: REFLEX TREE PANEL FRANKLYN TING CAN BE PERFORMED FROM [facility]. PHYSICIAN ORDER REQUIRED. CALL [facility] FORTHIS REFLEX TESTING. [phone] ASO 6031Ordered By: Jennifer luis on 10-03-2011 ASO 6031 42.4 {IU/mL} Normal 0.0-200.0 Comprehensiv e Internal Medicine Work Phone: Comment on above: Performed at: [address] [id number] Director: Radha Torres MD, Phone: [phone] CBCD,SMEAR DIFFOrdered By: S eMeterteRampRate [employer] Acid Tester on 10-03-2011 Band form neutrophils/100 WBC (Bld) 3 % Normal 0-5 [facility] Work Phone: Eosinophils/100 WBC (Bld) 8 % Abnormal 0-5 [facility] Work Phone: Erythrocyte distribution width Ratio (RBC) 13.0 % Normal 11.6-14.6 [facility] Work Phone: Hematocrit Volume Fraction (Bld) 37.6 % Normal 37-47 [facility] Work Phone: Hemoglobin mass conc (Bld) 12.9 g/dL Normal 12.0-16.0 [facility] Work Phone: Lymphocytes/100 WBC (Bld) 17 % Abnormal 19-41 [facility] Work Phone: MCH Entitic mass (RBC) 31.1 pg Normal 27.0-32.0 [facility] Work Phone: MCHC mass conc (RBC) 34.4 g/dL Normal 32-36 Comp rehensive Internal Medicine Work Phone: MCV Entitic volume (RBC) 90.6 fL Normal 81-99 [facility] Work Phone: Neutrophils #/vol (Bld) 4.7 3/uL Normal 2.0-7.7 C omprehensive Internal Medicine Work Phone: Platelets #/vol (Bld) SeeNote Normal Com prehensive Internal Medicine Work Phone: Comment on above: Result: ADEQUATE Platelets #/vol (Bld) 213 10*3/uL Normal 150-450 Co [facility] Internal Medicine Work Phone: RBC #/vol (Bld) 4.15 {M/mm3} Abnormal 4.2-5.4 Compreh ensive Internal Medicine Work Phone: WBC #/vol (Bld) 7.5 10*3/uL Normal 4.4-11.0 Comprehe [facility] Internal Medicine Work Phone: CBCD,SMEAR DIFF SeeNote Normal Comprehen [facility] Internal Medicine Work Phone: Comment on above: Result: NORM C+C Result: Negative CBCD,SMEAR DIFF LARGE Normal Comprehen [facility] Internal Medicine Work Phone: CBCD,SMEAR DIFF 13 % Abnormal 0-10 Comprehen [facility] Internal Medicine Work Phone: CBCD,SMEAR DIFF 59 % Normal 47-70 Comprehen [facility] Internal Medicine Work Phone: CBCD,SMEAR DIFF 100 1 Normal Comprehen [facility] Internal Medicine Work Phone: CBCD,SMEAR DIFF 3 % Normal 0-5 Comprehen [facility] Internal Medicine Work Phone: COMP METABOLICOrdered By: Riley stem Acid Tester on 10-03-2011 Albumin mass conc 3.9 g/dL Normal 3.4-5.0 [facility] ensive Internal Medicine Work Phone: Albumin/Globulin mass ratio 1.2 {RATIO} Normal 0.9-2.4 [facility] Internal Medicine Work Phone: ALP enzyme act/vol 83 U/L Normal 50-136 [facility] Internal Medicine Work Phone: ALT enzyme act/vol 25 U/L Normal 12-78 [facility] Internal Medicine Work Phone: Anion gap molar conc 6 mmol/L Normal 5-15 [facility] Internal Medicine Work Phone: AST enzyme act/vol 12 U/L Abnormal 15-37 [facility] Internal Medicine Work Phone: Bilirubin mass conc 0.50 mg/dL Normal 0.00-1.00 [facility] Internal Medicine Work Phone: Calcium mass conc 8.4 mg/dL Abnormal 8.5-10.1 [facility] Internal Medicine Work Phone: Chloride molar conc 104 mmol/L Normal 98-107 [facility] Internal Medicine Work Phone: CO2 molar conc 32.0 mmol/L Normal 21.0-32.0 [facility] Internal Medicine Work Phone: Creatinine mass conc 0.9 mg/dL Normal 0.6-1.0 [facility] Internal Medicine Work Phone: GFR/1.73 sq M predicted among blacks MDRD vol rate/area (S/P/Bld) 90 mL/min/{1.73_m2} Normal Comprehe nsive Internal Medicine Work Phone: GFR/1.73 sq M.predicted MDRD (S/P/Bld) [Vol rate/Area] 74 mL/min/{1.73_m2} [facility] Work Phone: GFR/1.73 sq M.predicted MDRD vol rate/area 74 mL/min/{1.73_m2} Normal [facility] Internal Medicine Work Phone: Globulin mass conc (S) 3.2 g/dL Normal 2.7-4.2 Co mprehensive Internal Medicine Work Phone: Glucose mass conc 98 mg/dL Normal 70-110 Compreh ensive Internal Medicine Work Phone: Potassium molar conc 3.8 mmol/L Normal 3.5-5.1 Comp rehensive Internal Medicine Work Phone: Protein mass conc 7.1 g/dL Normal 6.4-8.2 Compreh ensive Internal Medicine Work Phone: Sodium molar conc 142 mmol/L Normal 136-145 Compreh ensive Internal Medicine Work Phone: Urea nitrogen mass conc 13 mg/dL Normal 7-18 C omprehensive Internal Medicine Work Phone: Urea nitrogen/Creatinine mass ratio 14.4 {RATIO} Normal 10-20 [facility] Work Phone: ESROrdered By: System Manage r on 10-03-2011 ESR Velocity (Bld) 8 mm/h Normal 0-20 Compre hensive Internal Medicine Work Phone: QNTIFERON TBOrdered By: Syst em Acid Tester on 10-03-2011 QNTIFERON TB 0.03 {IU/mL} Normal Comprehens negar Internal Medicine Work Phone: QNTIFERON TB Comment Normal Comprehensiv e Internal Medicine Work Phone: Comment on above: The QuantiFERON TB G old (in Tube) assay is intended for useas an aid in the diagnosis of TB infection. Negativeresults suggest that there is no TB infection. In patientswith high suspicion of exposure, a negative test should berepeated. A positive test indicates infection withMycobacterium tuberculosis. Among individuals withouttuberculosis infection, a positive test may be due toexposure to M. kansasii, M. szulgai or M. marinum. On theInternet, go to cdc.gov/tb for further details. .The specimen received for QuantiFERON testing was incubatedby the ordering institution. Specific procedures outlinedin our Directory of Services and in the package insert forthe QuantiFERON Gold (In Tube) test must be followed toenable for proper stimulation of cells for the productionof interferon gamma.Performed at: - [facility] [address] [place], [place] [id number] Director: Tulio Perea MD, Phone: [phone] QNTIFERON TB > 10.00 Normal Comprehensiv e Internal Medicine Work Phone: QNTIFERON TB 0.06 {IU/mL} Normal Comprehens negar Internal Medicine Work Phone: C-REACTIVE PROTOrdered By: Sergio galveztem Acid Tester on 03-25-2011 CRP mass conc mg/L Normal 0.0-3.0 Comprehensi ve Internal Medicine Work Phone: Comment on above: C-Reactive Protein ( CRP) provides useful information for thediagnosis, therapy and monitoring of inflammatory processesand associated diseases. For the evaluation of Relative Riskfor Cardiovascular Disease, a High Sensitivity CRP (HSCRP)should be ordered. CHEST, PA AND LATERALOrdered By: Slag Mixer on 03-25-2011 CHEST, PA AND LATERAL See Note Normal Com prehensive Internal Medicine Work Phone: Comment on above: PROCEDURE: X-RAY GAB REASON FOR EXAM: Female, 40 years old. Shortness of breath TECHNIQUE: Frontal and lateral views of the chest. COMPARISON: 07/08/2010 FINDINGS: The lungs are expanded. There is no demonstrated parenchymalabnormality.There is no demonstrated pleural abnormality. Normal heart and pericardium. Normal mediastinum and vasquez. Normal visualized pulmonary arteries.Normalvisualized aortic arch and descending thoracic aorta. Normal visualized thoracic spine. Normal visualized ribs, clavicles, andshoulders. There is no demonstrated abnormality of the visualized soft tissuestructures of the upper abdomen. IMPRESSION:Normal x-ray examination of the chest. Dictated on 03/25/11 1301 by Fatimah BOLAÑOS,Tfifanieranscribed on 03/26/11 190 by ITS IMPORTSign by Evelyn Sheridan MD on 03/26/111903 Sign by: Evelyn Sheridan MD CPK TOTALOrdered By: Slag Mixer on 03-25-2011 CPK TOTAL 75 U/L Normal 26-192 [facility] Work Phone: Comment on above: Please note: Revised Creatinine Kinase (CK) Reference ramge effective 09/12/10. D-DIMER QUANTOrdered By: Leonila tem Acid Tester on 03-25-2011 D-DIMER QUANT <0.22 Normal 0.22-0.48 Comprehensi Internal Medicine Work Phone: Comment on above: Effective FEBRUARY 11 11. CBCD,SMEAR DIFFOrdered By: Sergio ystem Acid Tester on 07-09-2010 Eosinophils/100 WBC (Bld) 2 % Normal 0-5 [facility] Work Phone: Erythrocyte distribution width Ratio (RBC) 13.0 % Normal 11.6-14.6 [facility] Work Phone: Hematocrit Volume Fraction (Bld) 39.3 % Normal 37-47 [facility] Work Phone: Hemoglobin mass conc (Bld) 13.5 g/dL Normal 12.0-16.0 [facility] Work Phone: Lymphocytes/100 WBC (Bld) 19 % Normal 19-41 [facility] Work Phone: MCH Entitic mass (RBC) 31.4 pg Normal 27.0-32.0 [facility] Work Phone: MCHC mass conc (RBC) 34.3 g/dL Normal 32-36 Comp rehensive Internal Medicine Work Phone: MCV Entitic volume (RBC) 91.4 fL Normal 81-99 [facility] Work Phone: Monocytes/100 WBC (Bld) 8 % Normal 0-10 C omprehensive Internal Medicine Work Phone: Neutrophils #/vol (Bld) 4.4 3/uL Normal 2.0-7.7 C omprehensive Internal Medicine Work Phone: Platelets #/vol (Bld) SeeNote Normal Com prehensive Internal Medicine Work Phone: Comment on above: Result: ADEQUATE Platelets #/vol (Bld) 226 10*3/uL Normal 150-450 [facility] Work Phone: RBC #/vol (Bld) 4.30 {M/mm3} Normal 4.2-5.4 [facility] Internal [facility] Work Phone: WBC #/vol (Bld) 6.9 10*3/uL Normal 4.4-11.0 [facility] Internal [facility] Work Phone: CBCD,SMEAR DIFF 6 % Abnormal 0-[address] [facility] Internal Medicine Work Phone: CBCD,SMEAR DIFF 100 1 Normal [facility] Internal Medicine Work Phone: CBCD,SMEAR DIFF 65 % Normal 47-70 [facility] Internal Medicine Work Phone: CBCD,SMEAR DIFF SeeNote Normal [email or web address] Work Phone: Comment on above: Result: NORM C+C EBVIgG/M [id number] By: Sergio majano Acid Tester on 07-09-2010 EBVIgG/M [id number] 2.5 {AI} Abnormal 0.0-0.8 [facility] [[email or web address]] Work Phone: Comment on above: Negative <0.9 Equivo thony 0.9 - 1.0 Positive >1.0 EBVIgG/M 160202 < 0.2 Normal 0.0-0.8 [facility] [[email or web address]] Work Phone: Comment on above: Negative <0.9 Equivo thony 0.9 - 1.0 Positive >1.0 EBVIgG/M [id number] > 8.0 Abnormal 0.0-0.8 [facility] Internal [facility] Work Phone: Comment on above: Negative <0.9 Equivo thony 0.9 - 1.0 Positive >1.0 EBVIgG/M [id number] Comment Normal [facility] [[email or web address]] Work Phone: Comment on above: EBV Interpretation C del cid . Interpretation VCA-IgM EA-IgG VCA-IgG NA-ABS . Susceptible - - - - Acute Infection + +or- +or- - Convalescent Phase +or- +or- + + Chronic or Reactivated - + + +or- Old Infection - - +or- + + Antibody Present - Antibody AbsentPerformed at: [facility] [address] [id number] Director: Radha Torres MD, Phone: [phone] CHEST, PA AND LATERAL (MT)Or dered By: Slag Mixer on 07-08-2010 CHEST, PA AND LATERAL (MT) See Note Normal [facility] Work Phone: Comment on above: Exam Number: [id number] LINICAL:Cough, congestion. X-RAY EXAMINATION - CHEST TECHNIQUE:PA and lateral views of the chest. COMPARISON:None. FINDINGS: The lungs are clear and expanded. There is no demonstrated pleural abnormality. The heart is normal in size and morphology. Normal mediastinum and hilar regions. Normal visualized pulmonary arteries. Normal visualized aortic arch and descending thoracic aorta. Normal osseous structures. IMPRESSION:Normal x-ray examination of the chest. Reported By: BLADIMIR GONG M.D. Urinalysis, Office ([id number])Or dered By: Rebekah Blackburn on 07-08-2010 Bilirubin Ql (U) Negative Normal Comprehe nsive Internal Medicine Work Phone: Bilirubin Ql (U) Negative Normal Comprehe nsive Internal Medicine; [facility] Work Phone: Glucose Test strip (U) [Mass/Vol] Negative Normal [facility]; [facility] Work Phone: Glucose Test strip mass conc (U) Negative Normal [facility] Work Phone: Hemoglobin Ql (U) Negative Normal Compreh ensive Internal Medicine Work Phone: Hemoglobin Ql (U) Negative Normal Compreh ensive Internal Medicine; [facility] Work Phone: Ketones Ql (U) Negative Normal Comprehens negar Internal Medicine Work Phone: Ketones Ql (U) Negative Normal Comprehens negar Internal Medicine; [facility] Work Phone: Leukocyte esterase Test strip Ql (U) Negative Normal [facility] Work Phone: Leukocyte esterase Test strip Ql (U) Negative Normal [facility]; [facility] Work Phone: Nitrite Ql (U) Negative Normal Comprehens negar Internal Medicine Work Phone: Nitrite Ql (U) Negative Normal Comprehens negar Internal Medicine; [facility] Work Phone: pH (U) 8.0 [pH] Normal [facility] Work Phone: Protein Ql (U) Negative Normal Comprehens negar Internal Medicine Work Phone: Protein Ql (U) Negative Normal Comprehens negar Internal Medicine; [facility] Work Phone: Specific gravity Relative Density (U) 1.010 1 Normal Comprehensi ve Internal Medicine Work Phone: Urobilinogen mass/time (24H U) Normal Normal [facility] Work Phone: CHEST, PA AND LATERAL (MT)Or dered By: Slag Mixer on 05-01-2010 CHEST, PA AND LATERAL (MT) See Note Normal [facility] Work Phone: Comment on above: Exam Number: [id number] CLINICAL:This is a 40-year-old female patient with history of a fever andcough. X-RAY EXAMINATION - CHEST TECHNIQUE:PA and lateral views of the chest. COMPARISON:None. FINDINGS:Normal visualized trachea and bronchi. The lungs are well expanded. I suspect an early infiltrate in the posterior segment of the leftlower lobe. The remainder of the examination is unremarkable. Normal pleura. Normal heart. Normal pulmonary arteries. Normal visualized aortic arch and descending thoracic aorta. Normal mediastinum. Normal hilar regions. Normal chest wall structures. Normal osseous structures. Unremarkable upper abdomen. IMPRESSION:Findings suggestive of an early infiltrate in the posterior segmentof the left lower lobe. Reported By: FARHAD LARA CBCD,SMEAR DIFFOrdered By: Sergio galveztem Acid Tester on 04-30-2010 Band form neutrophils/100 WBC (Bld) 1 % Normal 0-5 [facility] Work Phone: Eosinophils/100 WBC (Bld) 2 % Normal 0-5 [facility] Work Phone: Erythrocyte distribution width Ratio (RBC) 13.2 % Normal 11.6-14.6 [facility] Work Phone: Hematocrit Volume Fraction (Bld) 39.5 % Normal 37-47 [facility] Work Phone: Hemoglobin mass conc (Bld) 13.3 g/dL Normal 12.0-16.0 [facility] Work Phone: Lymphocytes/100 WBC (Bld) 21 % Normal 19-41 [facility] Work Phone: MCH Entitic mass (RBC) 30.6 pg Normal 27.0-32.0 [facility] Work Phone: MCHC mass conc (RBC) 33.7 g/dL Normal 32-36 Comp rehensive Internal Medicine Work Phone: MCV Entitic volume (RBC) 91.0 fL Normal 81-99 [facility] Internal Medicine Work Phone: Monocytes/100 WBC (Bld) 7 % Normal 0-10 [facility] Work Phone: Neutrophils #/vol (Bld) 6.2 3/uL Normal 2.0-7.7 [facility] Work Phone: Platelets #/vol (Bld) 197 10*3/uL Normal 150-450 Co [facility] Internal Medicine Work Phone: Platelets #/vol (Bld) SeeNote Normal Com prehensive Internal Medicine Work Phone: Comment on above: Result: ADEQUATE RBC #/vol (Bld) 4.34 {M/mm3} Normal 4.2-5.4 Compreh ensive Internal Medicine Work Phone: WBC #/vol (Bld) 8.0 10*3/uL Normal 4.4-11.0 Comprehe nsive Internal Medicine Work Phone: CBCD,SMEAR DIFF SeeNote Normal Comprehen [facility] Internal Medicine Work Phone: Comment on above: Result: NORM C+C CBCD,SMEAR DIFF 100 1 Normal Comprehen [facility] Internal Medicine Work Phone: CBCD,SMEAR DIFF 69 % Normal 47-70 Comprehen [facility] Internal Medicine Work Phone: CBCD,SMEAR DIFF 1 % Normal 0-[address] [facility] Internal [facility] Work Phone: COMP METABOLICOrdered By: Riley stem Acid Tester on 04-30-2010 Albumin mass conc 3.9 g/dL Normal 3.4-5.0 [facility] Internal Medicine Work Phone: Albumin/Globulin mass ratio 1.1 {RATIO} Normal 0.9-2.4 [facility] Internal Medicine Work Phone: ALP enzyme act/vol 94 U/L Normal 50-136 [facility] Internal Medicine Work Phone: ALT enzyme act/vol 22 U/L Normal 12-78 [facility] Internal Medicine Work Phone: Anion gap molar conc 9 mmol/L Normal 5-15 [facility] Internal Medicine Work Phone: AST enzyme act/vol 8 U/L Abnormal 15-37 [facility] Work Phone: Bilirubin mass conc 0.60 mg/dL Normal 0.00-1.00 Compr [facility] Internal Medicine Work Phone: Calcium mass conc 8.3 mg/dL Abnormal 8.5-10.[address] [facility] Internal Medicine Work Phone: Chloride molar conc 101 mmol/L Normal 98-107 [facility] Internal Medicine Work Phone: CO2 molar conc 27.0 mmol/L Normal 21.0-32.[address] [facility] Work Phone: Creatinine mass conc 0.9 mg/dL Normal 0.6-1.0 Comp [facility] Internal Medicine Work Phone: GFR/1.73 sq M predicted among blacks MDRD vol rate/area (S/P/Bld) 90 mL/min/{1.73_m2} Normal Comprehe [facility] Internal Medicine Work Phone: GFR/1.73 sq M.predicted MDRD (S/P/Bld) [Vol rate/Area] 74 mL/min/{1.73_m2} Normal Comprehensiv e Internal Medicine Work Phone: GFR/1.73 sq M.predicted MDRD vol rate/area 74 mL/min/{1.73_m2} Normal Comprehen [facility] Internal Medicine Work Phone: Globulin mass conc (S) 3.5 g/dL Normal 2.7-4.2 Co mprehensive Internal Medicine Work Phone: Glucose mass conc 96 mg/dL Normal 70-110 Compreh ensive Internal Medicine Work Phone: Potassium molar conc 4.4 mmol/L Normal 3.5-5.1 Comp rehensive Internal Medicine Work Phone: Protein mass conc 7.4 g/dL Normal 6.4-8.2 Compreh ensive Internal Medicine Work Phone: Sodium molar conc 137 mmol/L Normal 136-145 Compreh ensive Internal Medicine Work Phone: Urea nitrogen mass conc 7 mg/dL Normal 7-18 [facility] Work Phone: Urea nitrogen/Creatinine mass ratio 7.8 {RATIO} Abnormal 10-20 [facility] Work Phone: CULTURE, URINEOrdered By: Riley stem Acid Tester on 04-30-2010 Bacteria identified Cx Nom (U) See Note Normal [facility] Work Phone: Comment on above: COLONY COUNT 11,000- 25,000 EBVIgG/M [id number] By: S ystem Acid Tester on 04-30-2010 EBVIgG/M [id number] > 8.0 Abnormal 0.0-0.8 [facility] Internal Medicine Work Phone: Comment on above: Negative <0.9Equivoc al 0.9 - 1.0Positive >1.0 EBVIgG/M [id number] Comment Normal [facility] Internal Medicine Work Phone: Comment on above: EBV Interpretation C del cid.Interpretation VCA-IgM EA-IgG VCA-IgG NA-ABS.Susceptible - - - -Acute Infection + +or- + -Convalescent Phase +or- +or- + +Chronic or Reactivated - + + +or-Old Infection - - +or- ++ Antibody Present - Antibody AbsentPerformed at: CB - [facility] [id number] [place], [place] [id number] Director: Radha Torres MD, Phone: [phone] EBVIgG/M [id number] 2.5 {AI} Abnormal 0.0-0.8 Comprehen sive Internal Medicine Work Phone: Comment on above: Negative <0.9Equivoc al 0.9 - 1.0Positive >1.0 EBVIgG/M [id number] < 0.2 Normal 0.0-0.8 Comprehen sive Internal Medicine Work Phone: Comment on above: Negative <0.9Equivoc al 0.9 - 1.0Positive >1.0 MONOTESTOrdered By: System Zandra luis on 04-30-2010 Monocytes #/vol (Bld) SeeNote Normal Com prehensive Internal Medicine Work Phone: Comment on above: Result: Negative TSHOrdered By: System Manage r on 04-30-2010 Thyrotropin Qn 1.02 {uIU/mL} Normal 0.358-3.74 Compreh ensive Internal Medicine Work Phone: Urinalysis, Office ([phone])Or dered By: Mirian Espinal on 04-30-2010 Bilirubin Ql (U) Small Normal Comprehe nsive Internal Medicine Work Phone: Glucose Test strip mass conc (U) Negative Normal [facility] Work Phone: Hemoglobin Ql (U) Hemolyzed Trace Normal Co mprehensive [facility] Medicine Work Phone: Ketones Ql (U) Small Normal Comprehens negar Internal Medicine Work Phone: Leukocyte esterase Test strip Ql (U) Trace Normal [facility] Work Phone: Nitrite Ql (U) Negative Normal Comprehens negar Internal Medicine Work Phone: pH (U) 5.0 [pH] Normal [facility] Work Phone: Protein Ql (U) 100 mg/dL Normal Comprehens negar Internal Medicine Work Phone: Specific gravity Relative Density (U) 1.020 1 Normal Comprehensi ve Internal Medicine Work Phone: Urobilinogen mass/time (24H U) Normal Normal [facility] Work Phone: Urinalysis, Office ([phone])on 04-30-2010 Glucose Test strip (U) [Mass/Vol] Negative Normal [facility]; [facility] Work Phone: Nitrite Ql (U) Negative Normal Comprehens negar Internal Medicine; [facility] Work Phone: Blood Glucose , Office ([phone])Ordered By: CELESTE Perales on 03-14-2010 Glucose Glucometer molar conc (BldC) 98 1 Normal [facility] Work Phone: HgA1C , Office ([phone])Ordere d By: CELESTE Perales on 03-14-2010 Hemoglobin A1c/Hemoglobin.total mass fraction (Bld) 5.7 % Normal 4.6 - 7.1 Comprehensiv e Internal Medicine Work Phone: Urinalysis, Office ([phone])Or dered By: CELESTE Perales on 03-14-2010 Bilirubin Ql (U) Negative Normal Comprehe nsive Internal Medicine Work Phone: Bilirubin Ql (U) Negative Normal Comprehe nsive Internal Medicine; [facility] Work Phone: Glucose Test strip (U) [Mass/Vol] Negative Normal [facility]; [facility] Work Phone: Glucose Test strip mass conc (U) Negative Normal [facility] Work Phone: Hemoglobin Ql (U) Negative Normal Compreh ensive Internal Medicine Work Phone: Hemoglobin Ql (U) Negative Normal Compreh ensive Internal Medicine; [facility] Work Phone: Ketones Ql (U) Negative Normal Comprehens negar Internal Medicine Work Phone: Ketones Ql (U) Negative Normal Comprehens negar [facility]; [facility] Work Phone: Leukocyte esterase Test strip Ql (U) Negative Normal [facility] Work Phone: Leukocyte esterase Test strip Ql (U) Negative Normal [facility]; [facility] Work Phone: Nitrite Ql (U) Negative Normal Comprehens negar [facility] Medicine Work Phone: Nitrite Ql (U) Negative Normal Comprehens negar [facility]; [facility] Work Phone: pH (U) 6.0 [pH] Normal [facility] Work Phone: Protein Ql (U) Negative Normal Comprehens negar Internal Medicine Work Phone: Protein Ql (U) Negative Normal Comprehens negar [facility] Medicine; [facility] Work Phone: Specific gravity Relative Density (U) 1.015 1 Normal Comprehensi ve Internal Medicine Work Phone: Urobilinogen mass/time (24H U) 2 mg/dL Normal [facility] Work Phone: Urine Test, Office ([phone])Ordered By: CELESTE Perales on 03-14-2010 HCG.beta subunit ( test) Ql (U) Negative Normal Comprehe nsive Internal Medicine Work Phone: Urine Test, Office ([phone]) Negative Normal [facility]; [facility] Work Phone: CULTURE, URINEOrdered By: Riley stem Acid Tester on 10-23-2008 Bacteria identified Cx Nom (U) See Note Normal [facility] Work Phone: Comment on above: COLONY COUNT 1000-10 ,000 ORGANISM 1: MIXED GRAM POSITIVE ORGANISMS Urinalysis, Office ([phone])Or dered By: Rebekah Blackburn on 10-23-2008 Bilirubin Ql (U) Small Normal Comprehe nsive Internal Medicine Work Phone: Glucose Test strip (U) [Mass/Vol] Negative Normal [facility]; [facility] Work Phone: Glucose Test strip mass conc (U) Negative Normal [facility] Work Phone: Hemoglobin Ql (U) Non Hemolyzed Trace Normal [facility] Work Phone: Ketones Ql (U) Small Normal Comprehens negar [facility] Medicine Work Phone: Leukocyte esterase Test strip Ql (U) Trace Normal [facility] Work Phone: Nitrite Ql (U) Negative Normal Comprehens negar [facility] Medicine Work Phone: Nitrite Ql (U) Negative Normal Comprehens negar [facility] Medicine; [facility] Work Phone: pH (U) 6.0 [pH] Normal [facility] Work Phone: Protein Ql (U) 30 mg/dL Normal Comprehens negar Internal Medicine Work Phone: Specific gravity Relative Density (U) 1.025 1 Normal Comprehensi ve Internal Medicine Work Phone: Urobilinogen mass/time (24H U) Normal Normal [facility] Work Phone: LQD PAP [id number] By: Riley stem Acid Tester on 08-15-2008 LQD PAP [id number] Comment Normal Comprehens negar Internal Medicine Work Phone: Comment on above: The Pap smear is a s creening test designed to aid in thedetection of premalignant and malignant conditions of theuterine cervix. It is not a diagnostic procedure andshould not be used as the sole means of detecting cervicalcancer. Both false-positive and false-negative reports dooccur. . CYTOLOGY INFORMATION :- CLINICAL INFORMATION: - DATE LMP/MENOPAUSE: 08/06/08 LMP- COLLECTION VIAL: Thin Prep Vial- AGILE DEVELOPER SOURCE: CERVICAL/ENDOCERVICAL- COLLECTION TECHNIQUE: BRUSH/SPATULA NEGATIVE FOR INTRAEP ITHELIAL LESION AND MALIGNANCY. The HPV DNA reflex c deena were not met with this specimenresult therefore, no HPV testing was performed. .Performed At: [address] [id number] aMre Bob Cytote chnologist (ASCP) Satisfactory for karen luation. Endocervical and/or squamous metaplasticcells (endocervical component) are present. LQD PAP [id number] . Normal Comprehens negar Internal Medicine Work Phone: Comment on above: CYTOLOGY INFORMATION :- CLINICAL INFORMATION: - DATE LMP/MENOPAUSE: 08/06/08 LMP- COLLECTION VIAL: Thin Prep Vial- AGILE DEVELOPER SOURCE: CERVICAL/ENDOCERVICAL- COLLECTION TECHNIQUE: BRUSH/SPATULA TREE (ANTINUCLEAR ANTIBODY) ( 22873)Ordered By: Ursula Gary on 01-31-2008 Nuclear Ab IF titer (S) 73 AU/mL Normal 0-99 C [facility]rehensive [facility] Work Phone: Comment on above: Negative <100 Equivo thony 100 - 120 Positive >120 PATIENT NOT FASTINGP ERFORMED BY: MARCOS Cruz6370 [facility] [id number] TREE (ANTINUCLEAR ANTIBODY) (60013) 73 AU/mL Normal 0-99 [facility]; [facility] Work Phone: Beta Strep Gp A CultureOrder ed By: Slag Mixer on 01-31-2008 Streptococcus.beta-hemo lytic Org specific cx Ql (Unsp spec) Negative Normal [facility] Work Phone: Comment on above: PATIENT NOT FASTINGP ERFORMED BY: MARCOS Cruz6370 [facility] [id number] C-REACTIVE PROTEIN ([id number])Or dered By: Ursula Gary on 01-31-2008 CRP mass conc 3.1 mg/L Normal 0.0-4.9 Comprehensi ve Internal Medicine Work Phone: Comment on above: PATIENT NOT FASTINGP ERFORMED BY: MARCOS Makilin6370 [facility] [id number] CBC (AUTO) ([id number])Ordered By : Ursula Gary on 01-31-2008 Erythrocyte distribution width Ratio (RBC) 13.5 % Normal 11.7-15.0 [facility] Work Phone: Comment on above: PATIENT NOT FASTINGP ERFORMED BY: MARCOS LabAntonio [id number] [facility] [id number] Hematocrit Volume Fraction (Bld) 38.6 % Normal 34.0-44.0 [facility] Work Phone: Comment on above: PATIENT NOT FASTINGP ERFORMED BY: MARCOS LabCohamlet [id number] Vences [facility] [id number] Hemoglobin mass conc (Bld) 13.4 g/dL Normal 11.5-15.0 [facility] Work Phone: Comment on above: PATIENT NOT FASTINGP ERFORMED BY: CB [facility] [id number] [facility] [id number] MCH Entitic mass (RBC) 31.3 pg Normal 27.0-34.0 [facility] Internal Medicine Work Phone: Comment on above: PATIENT NOT FASTINGP ERFORMED BY: CB [facility] [id number] [facility] [id number] MCHC mass conc (RBC) 34.6 g/dL Normal 32.0-36.0 [facility] Internal Medicine Work Phone: Comment on above: PATIENT NOT FASTINGP ERFORMED BY: CB [facility] [id number] [facility] [id number] MCV Entitic volume (RBC) 90 fL Normal 80-98 [facility] Work Phone: Comment on above: PATIENT NOT FASTINGP ERFORMED BY: CB [facility] [id number] [facility] [id number] Platelets #/vol (Bld) 224 {x10E3/uL} Normal 140-415 [facility] Internal Medicine Work Phone: Comment on above: PATIENT NOT FASTINGP ERFORMED BY: CB [facility] [id number] [facility] [id number] Platelets (Bld) [#/Vol] 224 10*3/uL Normal 140-415 [facility]; [facility] Internal Medicine Work Phone: RBC #/vol (Bld) 4.27 {x10E6/uL} Normal 3.80-5.10 [facility] Internal Medicine Work Phone: Comment on above: PATIENT NOT FASTINGP ERFORMED BY: CB [facility] [id number] [facility] [id number] RBC (Bld) [#/Vol] 4.27 10*6/uL Normal 3.80-5.10 [facility] Internal Medicine; [facility] Work Phone: WBC #/vol (Bld) 8.2 {x10E3/uL} Normal 4.0-10.5 Compr [facility] Internal Medicine Work Phone: Comment on above: PATIENT NOT FASTINGP ERFORMED BY: [facility] [id number] [facility] [id number] WBC (Bld) [#/Vol] 8.2 10*3/uL Normal 4.0-10.5 Compre [facility] Internal Medicine; [facility] Work Phone: Folate ([phone])Ordered By: Manuel Gary on 01-31-2008 Folate mass conc 10.7 ng/mL Normal [facility] Internal [facility] Work Phone: Comment on above: Indeterminate: 3.4 - 5.4 Deficient: <3.4 PATIENT NOT FASTINGP ERFORMED BY: [facility] [id number] [facility] [id number] METABOLIC PANEL, COMPREHENSI VE ([id number])Ordered By: Ursula Gary on 01-31-2008 Albumin mass conc 4.2 g/dL Normal 3.5-5.5 Compreh ensive Internal Medicine Work Phone: Comment on above: PATIENT NOT FASTINGC linical Information: SRC:THRT ADD [id number] PERFORMED BY: MARCOS [facility] [id number] [facility] [id number] Albumin/Globulin mass ratio 1.6 {ratio} Normal 1.1-2.5 [facility] Work Phone: Comment on above: PATIENT NOT FASTINGC linical Information: SRC:THRT ADD [id number] PERFORMED BY: MARCOS [facility] [id number] [facility] [id number] ALP [Catalytic activity/Vol] 93 U/L Normal 25-150 [facility]; [facility] Work Phone: ALP enzyme act/vol 93 [iU]/L Normal 25-150 [facility] Internal Medicine Work Phone: Comment on above: PATIENT NOT FASTINGC linical Information: SRC:THRT ADD [id number] PERFORMED BY: [facility] [id number] V[facility] SocStockin [place] [id number] ALT [Catalytic activity/Vol] 13 U/L Normal 0-40 [facility]; [facility] Internal Medicine Work Phone: ALT enzyme act/vol 13 [iU]/L Normal 0-40 [facility] Internal Medicine Work Phone: Comment on above: PATIENT NOT FASTINGC linical Information: SRC:THRT ADD [id number] PERFORMED BY: [facility] [id number] [facility] [id number] AST [Catalytic activity/Vol] 15 U/L Normal 0-40 [facility] Internal Medicine; [facility] Internal Medicine Work Phone: AST enzyme act/vol 15 [iU]/L Normal 0-40 [facility] Internal Medicine Work Phone: Comment on above: PATIENT NOT FASTINGC linical Information: SRC:THRT ADD [id number] PERFORMED BY: [facility] [id number] [facility]IntronisCarePart[facility] [id number] Bilirubin mass conc 0.7 mg/dL Normal 0.1-1.2 [facility] Internal Medicine Work Phone: Comment on above: PATIENT NOT FASTINGC linical Information: SRC:THRT ADD [id number],[id number] PERFORMED BY: [facility] [id number] [facility] [id number] Calcium mass conc 9.4 mg/dL Normal 8.5-10.6 [facility] Internal Medicine Work Phone: Comment on above: PATIENT NOT FASTINGC linical Information: SRC:THRT ADD [id number] PERFORMED BY: [facility] [id number] [facility] [id number] Chloride molar conc 107 mmol/L Normal 97-108 [facility] Internal Medicine Work Phone: Comment on above: PATIENT NOT FASTINGC linical Information: SRC:THRT ADD 201380,[id number] PERFORMED BY: [facility] Mcbyuy5460 [place] [id number] CO2 molar conc 22 mmol/L Normal 20-32 Comprehens negar Internal Medicine Work Phone: Comment on above: PATIENT NOT FASTINGC linical Information: SRC:TORO ADD [id number] PERFORMED BY: MARCOS [facility] Itfins0638 [facility] [id number] Creatinine mass conc 0.70 mg/dL Normal 0.50-1.50 Comp rehensive Internal Medicine Work Phone: Comment on above: PATIENT NOT FASTINGC linical Information: SRC:TORO ADD [id number] PERFORMED BY: MARCOS [facility] [id number] [facility] [id number] GFR/1.73 sq M predicted among blacks MDRD vol rate/area (S/P/Bld) mL/min/{1.73_m2} Normal 60-128 Comprehensi ve Internal Medicine Work Phone: Comment on above: Note: Persistent red uction for 3 months or more in an eGFR<60 mL/min/1.73 m2 defines CKD. Patients with eGFR values>/=60 mL/min/1.73 m2 may also have CKD if evidence of persistentproteinuria is present. .Additional information may be found at www.kdoqi.org. PATIENT NOT FASTINGC linical Information: SRC:TORO ADD [id number] PERFORMED BY: MARCOS [facility] Ikyeep2213 [facility] [id number] GFR/1.73 sq M.predicted MDRD (S/P/Bld) [Vol rate/Area] mL/min/{1.73_m2} Normal 60-128 [facility] Work Phone: Comment on above: PATIENT NOT FASTINGC linical Information: SRC:GERSONT ADD [id number] PERFORMED BY: LabEverwiserp Lupbbs5053 [facility] [id number] GFR/1.73 sq M.predicted MDRD vol rate/area mL/min/{1.73_m2} Normal 60-128 Comprehensiv e Internal Medicine Work Phone: Comment on above: PATIENT NOT FASTINGC linical Information: SRC:THRT ADD [id number] PERFORMED BY: MARCOS [facility] [id number] [facility] [id number] Globulin mass conc (S) 2.6 g/dL Normal 1.5-4.5 Co mprehensive Internal Medicine Work Phone: Comment on above: PATIENT NOT FASTINGC linical Information: SRC:THRT ADD [id number] PERFORMED BY: [facility] [id number] [facility] [id number] Glucose mass conc 81 mg/dL Normal 65-99 Compreh ensive Internal Medicine Work Phone: Comment on above: PATIENT NOT FASTINGC linical Information: SRC:THRT ADD [id number] PERFORMED BY: [facility] Sypnzw3223 [facility] [id number] Potassium molar conc 4.8 mmol/L Normal 3.5-5.2 Comp rehensive Internal Medicine Work Phone: Comment on above: PATIENT NOT FASTINGC linical Information: SRC:THRT ADD [id number] PERFORMED BY: [facility] Colczt3398 [facility] [id number] Protein mass conc 6.8 g/dL Normal 6.0-8.5 Compreh ensive Internal Medicine Work Phone: Comment on above: PATIENT NOT FASTINGC linical Information: SRC:THRT ADD [id number] PERFORMED BY: [facility] [id number] [facility] [id number] Sodium molar conc 141 mmol/L Normal 135-145 Compreh ensive Internal Medicine Work Phone: Comment on above: PATIENT NOT FASTINGC linical Information: SRC:THRT ADD [id number] PERFORMED BY: [facility] Zbazpz1398 [facility] [id number] Urea nitrogen mass conc 11 mg/dL Normal 5-26 C omprehensive Internal Medicine Work Phone: Comment on above: PATIENT NOT FASTINGC linical Information: SRC:THRT ADD [id number] PERFORMED BY: MARCOS [facility] [id number] [facility] [id number] Urea nitrogen/Creatinine mass ratio 16 mg/mg Normal 8-27 [facility] Work Phone: Comment on above: PATIENT NOT FASTINGC linical Information: SRC:THRT ADD [id number] PERFORMED BY: MARCOS [facility] [id number] [facility] [id number] RHEUMATOID FACTOR-QUANT ([phone] 31)Ordered By: Ursula Gary on 01-31-2008 Rheumatoid factor Qn 5.6 {IU/mL} Normal 0.0-13.9 [facility] prehensive Internal Medicine Work Phone: Comment on above: PATIENT NOT FASTINGP ERFORMED BY: MARCOS [facility] [id number] [facility]Care[facility] [id number] Rheumatoid factor Qn 5.6 [IU]/mL Normal 0.0-13.9 Com prehensive Internal Medicine; [facility] Work Phone: Rapid Strep Test, Office ([phone])Ordered By: Yumiko Davis on 01-31-2008 S. pyogenes Ag EIA Ql (Throat) Negative Normal [facility]; [facility] Work Phone: S. pyogenes Ag IA Ql (Unsp spec) Negative Normal [facility] Work Phone: SED RATE ERYTHROCYTE ([id number]) Ordered By: Ursula Gary on 01-31-2008 ESR Velocity (Bld) 2 mm/h Normal 0-20 [facility] Work Phone: Comment on above: PATIENT NOT FASTINGP ERFORMED BY: MARCOS [facility] [id number] [facility] [id number] TSH ([id number])Ordered By: Ursula Gary on 01-31-2008 Thyrotropin Qn 1.955 {uIU/mL} Normal 0.350-5.50 0 [facility] Work Phone: Comment on above: Adult TSH concentrat ions below 5.5 uIU/mL do not rule out the presence of subclinical hypothyroidism. PATIENT NOT FASTINGP ERFORMED BY: CB [facility] [id number] [facility] [id number] VITAMIN B-12 (CYANOCOBALAMIN ) ([id number])Ordered By: Ursula Gary on 01-31-2008 Cobalamin (Vitamin B12) mass conc 394 pg/mL Normal 211-911 [facility] Work Phone: Comment on above: PATIENT NOT FASTINGP ERFORMED BY: CB [facility] [id number] [facility] [id number] Urinalysis, Office ([id number])Or dered By: Della Cosby on 07-28-2007 Bilirubin Ql (U) Negative Normal Compre[facility] ns[facility] Work Phone: Glucose Test strip mass conc (U) Negative Normal [facility] Work Phone: Hemoglobin Ql (U) Negative Normal Compre[facility] ens[facility] Work Phone: Ketones Ql (U) Negative Normal [facility]prehens [facility] Work Phone: Leukocyte esterase Test strip Ql (U) Negative Normal [facility] Work Phone: Comment on above: aw Nitrite Ql (U) Negative Normal [facility] Work Phone: pH (U) 6.0 [pH] Normal [facility] Work Phone: Protein Ql (U) Negative Normal [facility] Work Phone: Specific gravity Relative Density (U) 1.020 1 Normal Comprehensi ve [facility] Work Phone: Urobilinogen mass/time (24H U) Normal Normal [facility] Work Phone: Urinalysis, Office ([id number])on 07-28-2007 Bilirubin Ql (U) Negative Normal [facility]; [facility] Work Phone: Glucose Test strip (U) [Mass/Vol] Negative Normal [facility]; [facility] Work Phone: Hemoglobin Ql (U) Negative Normal Compre[facility]; [facility] Work Phone: Ketones Ql (U) Negative Normal [facility]; [facility] Work Phone: Leukocyte esterase Test strip Ql (U) Negative Normal [facility]; [facility] Work Phone: Nitrite Ql (U) Negative Normal [facility]; [facility] Work Phone: Protein Ql (U) Negative Normal Comprehens [facility]; [facility] Work Phone: DUODENUMOrdered By: Jennifer luis on 12-29-2006 DUODENUM Normal [facility] Work Phone: Comment on above: OPERATION EGD w/ bx PRE-OPERATIVE DIAGNOSIS Epigastric pain TISSUE SUBMITTED Duodenum r/o celiac MICROSCOPIC DIAGNOSIS Duodenum, biopsy: Fragments of small intestinal mucosa, no pathologic diagnosis. SJ: 12/30/06 GROSS DESCRIPTION Received in formalin labeled with patient name and number and designated duodenum are two irregular fragments of light reynoso soft tissue that in aggregate measure 0.3 x 0.2 x 0.1 cm. The specimen is totally submitted in one cassette. / : 12/29/06 TC:4 REPORT SIGNED: ELIA MCINTYRE 12/30/06 Vital Signs Date Time Vital Sign Value Performing Clinician Facility 07-19-2025 15:08-0500 Body height 160 cm Hadley Buenrostro MD Work Phone: [facility] 07-19-2025 15:08-0500 Body height 160.02 cm Hadley Buenrostro MD Work Phone: [facility] 07-19-2025 15:08-0500 Body mass index (BMI) [Ratio] 44.8 kg/m2 Hadley Buenrostro MD Work Phone: [facility] 07-19-2025 15:08-0500 Body weight 115 kg Hadley Buenrostro MD Work Phone: [facility] 07-19-2025 15:08-0500 Body weight 114.31 kg Hadley Buenrostro MD Work Phone: [facility] 07-19-2025 15:08-0500 BP SITE #1 Hadley Buenrostro MD Work Phone: [facility] 07-19-2025 15:08-0500 Diastolic blood pressure 79 mm[Hg] Hadley Buenrostro MD Work Phone: [facility] 07-19-2025 15:08-0500 Heart rate 77 /min Hadley Buenrostro MD Work Phone: [facility] 07-19-2025 15:08-0500 HGHTCHNVIS Hadley Buenrostro MD Work Phone: [facility] 07-19-2025 15:08-0500 Systolic blood pressure 120 mm[Hg] Hadley Buenrostro MD Work Phone: [facility] 07-19-2025 15:08-0500 VITALSDONE Hadley Buenrostro MD Work Phone: [facility] 06-28-2025 15:08-0400 Body height 160 cm Hadley Buenrostro MD Work Phone: [facility] 06-28-2025 15:08-0400 Body height 160.02 cm Hadley Buenrostro MD Work Phone: [facility] 06-28-2025 15:08-0400 Body mass index (BMI) [Ratio] 44.8 kg/m2 Hadley Buenrostro MD Work Phone: [facility] 06-28-2025 15:08-0400 Body weight 115 kg Hadley Buenrostro MD Work Phone: [facility] 06-28-2025 15:08-0400 Body weight 114.31 kg Hadley Buenrostro MD Work Phone: [facility] 06-28-2025 15:08-0400 BP SITE #1 Hadley Buenrostro MD Work Phone: [facility] 06-28-2025 15:08-0400 Diastolic blood pressure 83 mm[Hg] Hadley Buenrostro MD Work Phone: [facility] 06-28-2025 15:08-0400 HGHTCHNVIS Hadley Buenrostro MD Work Phone: [facility] 06-28-2025 15:08-0400 Systolic blood pressure 122 mm[Hg] Hadley Buenrostro MD Work Phone: [facility] 06-28-2025 15:08-0400 VITALSDONE Hadley Buenrostro MD Work Phone: [facility] 02-28-2025 13:52-0400 Body height 161.3 cm Stephy Perales MD Work Phone: [facility] 02-28-2025 13:52-0400 Body mass index (BMI) [Ratio] 43.42 kg/m2 Stephy Perales MD Work Phone: [facility] 02-28-2025 13:52-0400 Body weight 112.95 kg Stephy Perales MD Work Phone: [facility] 02-28-2025 13:52-0400 Diastolic blood pressure 78 mm[Hg] Stephy Perales MD Work Phone: [facility] 02-28-2025 13:52-0400 Systolic blood pressure 132 mm[Hg] Stephy Perales MD Work Phone: [facility] 01-24-2025 09:01-0400 Diastolic blood pressure 66 mm[Hg] Toshia Huston DO Work Phone: [facility] 01-24-2025 09:01-0400 Heart rate 77 /min Toshia Huston DO Work Phone: [facility] 01-24-2025 09:01-0400 SaO2% (BldA) [Mass fraction] 97 % Toshia Huston DO Work Phone: [facility] 01-24-2025 09:01-0400 Systolic blood pressure 105 mm[Hg] Toshia Huston DO Work Phone: [facility] 07-05-2024 09:36-0400 Diastolic blood pressure 70 mm[Hg] Toshia Huston DO Work Phone: [facility] 07-05-2024 09:36-0400 Heart rate 74 /min Toshia Huston DO Work Phone: [facility] 07-05-2024 09:36-0400 SaO2% (BldA) [Mass fraction] 97 % Toshia Huston DO Work Phone: [facility] 07-05-2024 09:36-0400 Systolic blood pressure 104 mm[Hg] Toshia Huston DO Work Phone: [facility] 03-29-2024 10:46-0400 Diastolic blood pressure 69 mm[Hg] Toshia Huston DO Work Phone: [facility] 03-29-2024 10:46-0400 Heart rate 82 /min Toshia Huston DO Work Phone: [facility] 03-29-2024 10:46-0400 SaO2% (BldA) [Mass fraction] 97 % Toshia Huston DO Work Phone: [facility] 03-29-2024 10:46-0400 Systolic blood pressure 107 mm[Hg] Toshia Huston DO Work Phone: [facility] 03-15-2024 10:29-0400 Diastolic blood pressure 72 mm[Hg] Toshia Huston DO Work Phone: [facility] 03-15-2024 10:29-0400 Heart rate 83 /min Toshia Huston DO Work Phone: [facility] 03-15-2024 10:29-0400 SaO2% (BldA) [Mass fraction] 97 % Toshia Huston DO Work Phone: [facility] 03-15-2024 10:29-0400 Systolic blood pressure 108 mm[Hg] Toshia Huston DO Work Phone: [facility] 03-01-2024 10:37-0400 Diastolic blood pressure 69 mm[Hg] Toshia Huston DO Work Phone: [facility] 03-01-2024 10:37-0400 Heart rate 74 /min Toshia Huston DO Work Phone: [facility] 03-01-2024 10:37-0400 SaO2% (BldA) [Mass fraction] 97 % Toshia Huston DO Work Phone: [facility] 03-01-2024 10:37-0400 Systolic blood pressure 109 mm[Hg] Toshia Huston DO Work Phone: [facility] 02-19-2024 12:54-0400 Diastolic blood pressure 69 mm[Hg] Toshia Huston DO Work Phone: [facility] 02-19-2024 12:54-0400 Heart rate 60 /min Toshia Huston DO Work Phone: [facility] 02-19-2024 12:54-0400 SaO2% (BldA) [Mass fraction] 98 % Toshia Huston DO Work Phone: [facility] 02-19-2024 12:54-0400 Systolic blood pressure 110 mm[Hg] Toshia Huston DO Work Phone: [facility] 02-12-2024 16:34-0400 Diastolic blood pressure 74 mm[Hg] Toshia Huston DO Work Phone: [facility] 02-12-2024 16:34-0400 Heart rate 82 /min Toshia Huston DO Work Phone: [facility] 02-12-2024 16:34-0400 SaO2% (BldA) [Mass fraction] 98 % Toshia Huston DO Work Phone: [facility] 02-12-2024 16:34-0400 Systolic blood pressure 123 mm[Hg] Toshia Huston DO Work Phone: [facility] 01-05-2024 15:49-0400 Diastolic blood pressure 74 mm[Hg] Toshia Huston DO Work Phone: [facility] 01-05-2024 15:49-0400 Heart rate 79 /min Toshia Huston DO Work Phone: [facility] 01-05-2024 15:49-0400 SaO2% (BldA) [Mass fraction] 97 % Toshia Huston DO Work Phone: [facility] 01-05-2024 15:49-0400 Systolic blood pressure 114 mm[Hg] Toshia Huston DO Work Phone: [facility] 11-10-2023 09:34-0500 Diastolic blood pressure 84 mm[Hg] Toshia Huston DO Work Phone: [facility] 11-10-2023 09:34-0500 Heart rate 100 /min Toshia Huston DO Work Phone: [facility] 11-10-2023 09:34-0500 SaO2% (BldA) [Mass fraction] 95 % Toshia Huston DO Work Phone: [facility] 11-10-2023 09:34-0500 Systolic blood pressure 125 mm[Hg] Toshia Huston DO Work Phone: [facility] 08-10-2023 14:12-0500 Body height 162.56 cm METAL TECHNICIANNapoleon Ivey Work Phone: [facility] 08-10-2023 14:12-0500 Body mass index (BMI) [Ratio] 41.5 kg/m2 METAL TECHNICIAN-C Zahraa Ivey Work Phone: [facility] 08-10-2023 14:12-0500 Body weight 109.76 kg METAL TECHNICIAN-C Zahraa Ivey Work Phone: [facility] 08-10-2023 14:12-0500 Diastolic blood pressure 88 mm[Hg] METAL TECHNICIAN-C Zahraa Ivey Work Phone: [facility] 08-10-2023 14:12-0500 Heart rate 84 /min METAL TECHNICIAN-C Zahraa Ivey Work Phone: [facility] 08-10-2023 14:12-0500 Respiratory rate 16 /min METAL TECHNICIAN-C Zahraa Ivey Work Phone: [facility] 08-10-2023 14:12-0500 Systolic blood pressure 130 mm[Hg] METAL TECHNICIAN-C Zahraa Ivey Work Phone: [facility] 05-04-2023 15:42-0400 Body height 162.56 cm Cande Bach LPN [facility]; [facility] Work Phone: 05-04-2023 15:42-0400 Body mass index (BMI) [Ratio] 42.57 kg/m2 Cande Yudirb SHAVONNE [facility]; [facility] Work Phone: 05-04-2023 15:42-0400 Body surface area Derived from formula 2.14 m2 Cande Bach LPN [facility]; [facility] Work Phone: 05-04-2023 15:42-0400 Body temperature 97.1 [degF] Cande Slarb 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 [facility]; [facility] Work Phone: 05-04-2023 15:42-0400 Body weight 112.49 kg Cande Slarb 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 [facility]; [facility] Work Phone: 05-04-2023 15:42-0400 Diastolic blood pressure 80 mm[Hg] Cande Slarb 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 [facility]; [facility] Work Phone: 05-04-2023 15:42-0400 Heart rate 86 /min Cande Slarb 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 [facility]; [facility] Work Phone: 05-04-2023 15:42-0400 Respiratory rate 14 /min Cande Slarb 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 [facility]; [facility] Work Phone: 05-04-2023 15:42-0400 SaO2% (BldA) [Mass fraction] 97 % Cande Slarb 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 [facility]; [facility] Work Phone: 05-04-2023 15:42-0400 Systolic blood pressure 130 mm[Hg] 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 [facility]; [facility] Work Phone: 12-24-2022 14:45-0400 Body height 162.56 cm Cande Slarb 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 [facility]; [facility] Work Phone: 12-24-2022 14:45-0400 Body mass index (BMI) [Ratio] 39.99 kg/m2 Cande Slarb 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 [facility]; [facility] Work Phone: 12-24-2022 14:45-0400 Body surface area Derived from formula 2.09 m2 Cande Slarb 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 [facility]; [facility] Work Phone: 12-24-2022 14:45-0400 Body temperature 96 [degF] Cande Slarb 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 [facility]; [facility] Work Phone: 12-24-2022 14:45-0400 Body weight 105.69 kg Cande Slarb 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 [facility]; [facility] Work Phone: 12-24-2022 14:45-0400 Diastolic blood pressure 82 mm[Hg] Cande Slarb 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 [facility]; [facility] Work Phone: 12-24-2022 14:45-0400 Heart rate 95 /min Cande Slarb 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 [facility]; [facility] Work Phone: 12-24-2022 14:45-0400 Respiratory rate 17 /min Cande Slarb 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 [facility]; [facility] Work Phone: 12-24-2022 14:45-0400 SaO2% (BldA) [Mass fraction] 98 % Cande Slarb 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 [facility]; [facility] Work Phone: 12-24-2022 14:45-0400 Systolic blood pressure 126 mm[Hg] Cande Slarb 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 [facility]; [facility] Work Phone: 12-17-2022 13:06-0400 Body height 162.56 cm Cande Slarb 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 [facility]; [facility] Work Phone: 12-17-2022 13:06-0400 Body mass index (BMI) [Ratio] 39.99 kg/m2 Cande Slarb 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 [facility]; [facility] Work Phone: 12-17-2022 13:06-0400 Body surface area Derived from formula 2.09 m2 Cande Slarb 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 [facility]; [facility] Work Phone: 12-17-2022 13:06-0400 Body temperature 97.6 [degF] Cande Slarb 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 [facility]; [facility] Work Phone: 12-17-2022 13:06-0400 Body weight 105.69 kg Cande Slarb 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 [facility]; [facility] Work Phone: 12-17-2022 13:06-0400 Diastolic blood pressure 82 mm[Hg] Cande Slarb 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 [facility]; [facility] Work Phone: 12-17-2022 13:06-0400 Heart rate 96 /min Cande Slarb 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 [facility]; [facility] Work Phone: 12-17-2022 13:06-0400 Respiratory rate 16 /min Cande Slarb 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 [facility]; [facility] Work Phone: 12-17-2022 13:06-0400 SaO2% (BldA) [Mass fraction] 98 % Cande Slarb 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 [facility]; [facility] Work Phone: 12-17-2022 13:06-0400 Systolic blood pressure 132 mm[Hg] Cande Slarb 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 [facility]; [facility] Work Phone: 11-03-2022 15:42-0500 Body height 162.56 cm Cande Slarb 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 [facility]; [facility] Work Phone: 11-03-2022 15:42-0500 Body mass index (BMI) [Ratio] 39.99 kg/m2 Cande Slarb 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 [facility]; [facility] Work Phone: 11-03-2022 15:42-0500 Body surface area Derived from formula 2.09 m2 Cande Slarb 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 [facility]; [facility] Work Phone: 11-03-2022 15:42-0500 Body temperature 97.1 [degF] Cande Slarb 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 [facility]; [facility] Work Phone: 11-03-2022 15:42-0500 Body weight 105.69 kg Cande Slarb 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 [facility]; [facility] Work Phone: 11-03-2022 15:42-0500 Diastolic blood pressure 74 mm[Hg] Cande Slarb 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 [facility]; [facility] Work Phone: 11-03-2022 15:42-0500 Heart rate 87 /min Cande Slarb 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 [facility]; [facility] Work Phone: 11-03-2022 15:42-0500 Respiratory rate 16 /min Cande Slarb 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 [facility]; [facility] Work Phone: 11-03-2022 15:42-0500 SaO2% (BldA) [Mass fraction] 98 % Cande Slarb 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 [facility]; [facility] Work Phone: 11-03-2022 15:42-0500 Systolic blood pressure 116 mm[Hg] Cande Slarb 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 [facility]; [facility] Work Phone: 08-29-2022 13:44-0500 Body temperature 96.9 [degF] [facility] 08-29-2022 13:44-0500 Diastolic blood pressure 62 mm[Hg] [facility] 08-29-2022 13:44-0500 Heart rate 64 /min [facility] 08-29-2022 13:44-0500 Respiratory rate 16 /min [facility] 08-29-2022 13:44-0500 SaO2% (BldA) [Mass fraction] 100 % [facility] 08-29-2022 13:44-0500 Systolic blood pressure 122 mm[Hg] [facility] 08-29-2022 06:48-0500 Body height 162.56 cm [facility] 08-29-2022 06:48-0500 Body mass index (BMI) [Ratio] 38.6 kg/m2 [facility] 08-29-2022 06:48-0500 Body weight 102 kg [facility] 08-19-2022 15:33-0500 Body height 162.56 cm Cande Slarb 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 [facility]; [facility] Work Phone: 08-19-2022 15:33-0500 Body mass index (BMI) [Ratio] 38.8 kg/m2 Cande Slarb 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 [facility]; [facility] Work Phone: 08-19-2022 15:33-0500 Body surface area Derived from formula 2.06 m2 Cande Slarb 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 [facility]; [facility] Work Phone: 08-19-2022 15:33-0500 Body temperature 97.7 [degF] Cande Slarb 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 [facility]; [facility] Work Phone: 08-19-2022 15:33-0500 Body weight 102.52 kg Cande Slarb 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 [facility]; [facility] Work Phone: 08-19-2022 15:33-0500 Diastolic blood pressure 76 mm[Hg] Cande Slarb 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 [facility]; [facility] Work Phone: 08-19-2022 15:33-0500 Heart rate 78 /min Cande Bach LPN [facility]; [facility] Work Phone: 08-19-2022 15:33-0500 Respiratory rate 15 /min Cande Bach LPN [facility]; [facility] Work Phone: 08-19-2022 15:33-0500 SaO2% (BldA) [Mass fraction] 98 % Cande Bach LPN [facility]; [facility] Work Phone: 08-19-2022 15:33-0500 Systolic blood pressure 118 mm[Hg] Cande Bach LPN [facility]; [facility] Work Phone: 07-09-2022 14:32-0400 Body weight 101.61 kg Stephy Perales MD Work Phone: [facility] 07-09-2022 14:32-0400 Diastolic blood pressure 60 mm[Hg] Stephy Perales MD Work Phone: [facility] 07-09-2022 14:32-0400 Systolic blood pressure 104 mm[Hg] Stephy Perales MD Work Phone: [facility] 04-30-2022 08:04-0400 Body height 162.56 cm Tran Espinal LPN [facility]; [facility] Work Phone: 04-30-2022 08:04-0400 Body mass index (BMI) [Ratio] 37.08 kg/m2 Tran Espinal LPN [facility]; [facility] Work Phone: 04-30-2022 08:04-0400 Body surface area Derived from formula 2.02 m2 Tran Espinal LPN [facility]; [facility] Work Phone: 04-30-2022 08:04-0400 Body temperature 97.6 [degF] Tran Espinal LPN [facility]; [facility] Work Phone: 04-30-2022 08:04-0400 Body weight 97.99 kg Tran Espinal LPN [facility]; [facility] Work Phone: 04-30-2022 08:04-0400 Diastolic blood pressure 74 mm[Hg] Tran Espinal SHAVONNE [facility]; [facility] Work Phone: 04-30-2022 08:04-0400 Heart rate 81 /min Tran Espinal SHAVONNE [facility]; [facility] Work Phone: 04-30-2022 08:04-0400 Respiratory rate 16 /min Tran Espinal SHAVONNE [facility]; [facility] Work Phone: 04-30-2022 08:04-0400 SaO2% (BldA) [Mass fraction] 97 % Tran Espinal LPN [facility]; [facility] Work Phone: 04-30-2022 08:04-0400 Systolic blood pressure 110 mm[Hg] Tran Espinal SHAVONNE [facility]; [facility] Work Phone: 07-15-2021 09:09-0400 Body height 162.56 cm Beverly Biswas MA [facility]; [facility] Work Phone: 07-15-2021 09:09-0400 Body mass index (BMI) [Ratio] 35.02 kg/m2 Beverly Biswas MA [facility]; [facility] Work Phone: 07-15-2021 09:09-0400 Body surface area Derived from formula 1.97 m2 Beverly Biswas MA [facility]; [facility] Work Phone: 07-15-2021 09:09-0400 Body temperature 96.6 [degF] Beverly Biswas MA [facility]; [facility] Work Phone: 07-15-2021 09:09-0400 Body weight 92.55 kg Beverly Biswas MA [facility]; [facility] Work Phone: 07-15-2021 09:09-0400 Diastolic blood pressure 78 mm[Hg] Beverly Biswas MA [facility]; [facility] Work Phone: 07-15-2021 09:09-0400 Heart rate 80 /min Beverly Biswas MA [facility]; [facility] Work Phone: 07-15-2021 09:09-0400 SaO2% (BldA) [Mass fraction] 98 % Beverly Biswas MA [facility]; [facility] Work Phone: 07-15-2021 09:09-0400 Systolic blood pressure 118 mm[Hg] Beverly Biswas MA [facility]; [facility] Work Phone: 08-20-2020 15:00-0500 BMI (Body Mass Index) 39.48 kg/m2 Ursula Gary CADD OPERATOR Work Phone: [facility]; [facility] Work Phone: 08-20-2020 15:00-0500 Body weight 104.34 kg Ursula Gary CADD OPERATOR Work Phone: [facility]; [facility] Work Phone: 08-20-2020 15:00-0500 BSA (Body Surface Area) 2.08 m2 Ursula Gary CADD OPERATOR Work Phone: [facility]; [facility] Work Phone: 08-20-2020 15:00-0500 Height 162.56 cm Ursula Gary CADD OPERATOR Work Phone: [facility]; [facility] Work Phone: 04-16-2020 08:41-0400 BMI (Body Mass Index) 39.69 kg/m2 Ursula Gary Comprehens [facility] Work Phone: 04-16-2020 08:41-0400 BMI (Body Mass Index) 39.48 kg/m2 Indra Johnson LPN [facility] Work Phone: 04-16-2020 08:41-0400 Body Temperature 97.9 [degF] Indra Johnson LPN [facility] Work Phone: Comment on above: Method: Infrared 04-16-2020 08:41-0400 Body weight 104.89 kg Ursula Romerogonzález [facility] Work Phone: 04-16-2020 08:41-0400 Body weight 104.34 kg Indra Johnson LPN [facility] Work Phone: 04-16-2020 08:41-0400 BP Diastolic 72 mm[Hg] Indra Johnson LPN [facility] Work Phone: Comment on above: Patient Position: Sitting; Cuff Location : Left Arm; Cuff Size: Standard 04-16-2020 08:41-0400 BP Systolic 112 mm[Hg] Indra Johnson LPN [facility] Work Phone: Comment on above: Patient Position: Sitting; Cuff Location : Left Arm; Cuff Size: Standard 04-16-2020 08:41-0400 BSA (Body Surface Area) 2.08 m2 Indra Johnson LPN [facility] Work Phone: 04-16-2020 08:41-0400 Height 162.56 cm Indra Johnson LPN [facility] Work Phone: 04-16-2020 08:41-0400 Pulse (Heart Rate) 98 /min Indra Johnson LPN [facility] Work Phone: Comment on above: Pattern: Regular 04-16-2020 08:41-0400 Pulse Oximetry 97 % Ursula Gary [facility] Work Phone: Comment on above: Room air 04-16-2020 08:41-0400 Respiratory Rate 16 /min Indra Johnson LPN [facility] Work Phone: Comment on above: Pattern: Unlabored 04-16-2020 08:41-0400 SaO2% (BldA) [Mass fraction] 97 % Indra Johnson LPN [facility]; [facility] Work Phone: 11-15-2019 12:45-0500 BMI (Body Mass Index) 39.69 kg/m2 Tran Espinal LPN [facility] Work Phone: 11-15-2019 12:45-0500 Body Temperature 97.4 [degF] Tran Espinal LPN [facility] Work Phone: Comment on above: Method: Temporal 11-15-2019 12:45-0500 Body weight 104.89 kg Tran Espinal LPN [facility] Work Phone: 11-15-2019 12:45-0500 BP Diastolic 86 mm[Hg] Tran Espinal 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 [facility] Work Phone: Comment on above: Patient Position: Sitting; Cuff Location : Left Arm; Cuff Size: Standard 11-15-2019 12:45-0500 BP Systolic 100 mm[Hg] Tran Espinal LPN [facility] Work Phone: Comment on above: Patient Position: Sitting; Cuff Location : Left Arm; Cuff Size: Standard 11-15-2019 12:45-0500 BSA (Body Surface Area) 2.08 m2 Tran Espinal LPN [facility] Work Phone: 11-15-2019 12:45-0500 Height 162.56 cm Tran Espinal 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 [facility] Work Phone: 11-15-2019 12:45-0500 Pulse (Heart Rate) 80 /min Tran Espinal LPN [facility] Work Phone: Comment on above: Pattern: Regular 11-15-2019 12:45-0500 Pulse Oximetry 97 % Ursula Gary [facility] Work Phone: Comment on above: Room air 11-15-2019 12:45-0500 Respiratory Rate 16 /min Tran Espinal 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 [facility] Work Phone: Comment on above: Pattern: Unlabored 11-15-2019 12:45-0500 SaO2% (BldA) [Mass fraction] 97 % Tranmirta Espinal 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 [facility]; [facility] Work Phone: 08-01-2019 11:13-0500 BMI (Body Mass Index) 39.99 kg/m2 Tran Espinal LPN [facility] Work Phone: 08-01-2019 11:13-0500 Body Temperature 98.2 [degF] Tran Espinal 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 [facility] Work Phone: Comment on above: Method: Temporal 08-01-2019 11:13-0500 Body weight 105.69 kg Tran Espinal LPN [facility] Work Phone: 08-01-2019 11:13-0500 BP Diastolic 62 mm[Hg] Tran Espinal LPN [facility] Work Phone: Comment on above: Patient Position: Sitting; Cuff Location : Left Arm; Cuff Size: Standard 08-01-2019 11:13-0500 BP Systolic 110 mm[Hg] Tran Espinal LPN [facility] Work Phone: Comment on above: Patient Position: Sitting; Cuff Location : Left Arm; Cuff Size: Standard 08-01-2019 11:13-0500 BSA (Body Surface Area) 2.09 m2 Tran Espinal LPN [facility] Work Phone: 08-01-2019 11:13-0500 Height 162.56 cm Tran Espinal LPN [facility] Work Phone: 08-01-2019 11:13-0500 Pulse (Heart Rate) 87 /min Tran Espinal LPN [facility] Work Phone: Comment on above: Pattern: Regular 08-01-2019 11:13-0500 Pulse Oximetry 97 % Ursula Gary [facility] Work Phone: Comment on above: Room air 08-01-2019 11:13-0500 Respiratory Rate 16 /min Tran Espinal LPN [facility] Work Phone: Comment on above: Pattern: Unlabored 08-01-2019 11:13-0500 SaO2% (BldA) [Mass fraction] 97 % Tran Espinal LPN [facility]; [facility] Work Phone: 07-18-2019 14:10-0500 BMI (Body Mass Index) 39.99 kg/m2 Tran Espinal LPN [facility] Work Phone: 07-18-2019 14:10-0500 Body Temperature 97.3 [degF] Tran Espinal LPN [facility] Work Phone: Comment on above: Method: Temporal 07-18-2019 14:10-0500 Body weight 105.69 kg Tran Espinal LPN [facility] Work Phone: 07-18-2019 14:10-0500 BP Diastolic 70 mm[Hg] Tran Espinal LPN [facility] Work Phone: Comment on above: Patient Position: Sitting; Cuff Location : Left Arm; Cuff Size: Standard 07-18-2019 14:10-0500 BP Systolic 120 mm[Hg] Tran Espinal LPN [facility] Work Phone: Comment on above: Patient Position: Sitting; Cuff Location : Left Arm; Cuff Size: Standard 07-18-2019 14:10-0500 BSA (Body Surface Area) 2.09 m2 Tran Espinal LPN [facility] Work Phone: 07-18-2019 14:10-0500 Height 162.56 cm Tran Espinal SHAVONNE [facility] Work Phone: 07-18-2019 14:10-0500 Pulse (Heart Rate) 74 /min Tran Espinal LPN [facility] Work Phone: Comment on above: Pattern: Regular 07-18-2019 14:10-0500 Pulse Oximetry 96 % Ursula Gary [facility] Work Phone: Comment on above: Room air 07-18-2019 14:10-0500 Respiratory Rate 16 /min Tran Espinal LPN [facility] Work Phone: Comment on above: Pattern: Unlabored 07-18-2019 14:10-0500 SaO2% (BldA) [Mass fraction] 96 % Tranmirta Espinal LPN [facility]; [facility] Work Phone: 06-27-2019 11:37-0400 BMI (Body Mass Index) 40.17 kg/m2 Cande Bagleyолег HUGGINSN [facility] Work Phone: 06-27-2019 11:37-0400 Body Temperature 98.1 [degF] Cande Slaолег MARVIN [facility] Work Phone: 06-27-2019 11:37-0400 Body weight 106.15 kg Cande Bach LPN [facility] Work Phone: 06-27-2019 11:37-0400 BP Diastolic 78 mm[Hg] Cande Bagleyrb 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 [facility] Work Phone: Comment on above: Patient Position: Sitting; Cuff Location : Left Arm; Cuff Size: Standard 06-27-2019 11:37-0400 BP Systolic 116 mm[Hg] Cande Bach 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 [facility] Work Phone: Comment on above: Patient Position: Sitting; Cuff Location : Left Arm; Cuff Size: Standard 06-27-2019 11:37-0400 BSA (Body Surface Area) 2.09 m2 Cande Bach 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 [facility] Work Phone: 06-27-2019 11:37-0400 Height 162.56 cm Cande Bach 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 [facility] Work Phone: 06-27-2019 11:37-0400 Pulse (Heart Rate) 101 /min Cande Bach 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 [facility] Work Phone: Comment on above: Pattern: Regular 06-27-2019 11:37-0400 Pulse Oximetry 95 % Ursula Abdirahman [facility] Work Phone: Comment on above: Room air 06-27-2019 11:37-0400 Respiratory Rate 16 /min Cande Bach 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 [facility] Work Phone: Comment on above: Pattern: Unlabored 06-27-2019 11:37-0400 SaO2% (BldA) [Mass fraction] 95 % Cande Bach 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 [facility]; [facility] Work Phone: 04-27-2019 09:58-0400 BMI (Body Mass Index) 40.17 kg/m2 Indra Jonhson LPN [facility] Work Phone: 04-27-2019 09:58-0400 Body Temperature 97.2 [degF] Indra Johnson LPN [facility] Work Phone: Comment on above: Method: Temporal 04-27-2019 09:58-0400 Body weight 106.15 kg Indra Johnson LPN [facility] Work Phone: 04-27-2019 09:58-0400 BP Diastolic 72 mm[Hg] Indra Johnson LPN [facility] Work Phone: Comment on above: Patient Position: Sitting; Cuff Location : Left Arm; Cuff Size: Standard 04-27-2019 09:58-0400 BP Systolic 110 mm[Hg] Indra Johnson LPN [facility] Work Phone: Comment on above: Patient Position: Sitting; Cuff Location : Left Arm; Cuff Size: Standard 04-27-2019 09:58-0400 BSA (Body Surface Area) 2.09 m2 Indra Johnson LPN [facility] Work Phone: 04-27-2019 09:58-0400 Height 162.56 cm Indra Johnson LPN [facility] Work Phone: 04-27-2019 09:58-0400 Pulse (Heart Rate) 79 /min Indra Johnson LPN [facility] Work Phone: Comment on above: Pattern: Regular 04-27-2019 09:58-0400 Pulse Oximetry 97 % Ursula Gary [facility] Work Phone: Comment on above: Room air 04-27-2019 09:58-0400 Respiratory Rate 16 /min Indra Johnson LPN [facility] Work Phone: Comment on above: Pattern: Unlabored 04-27-2019 09:58-0400 SaO2% (BldA) [Mass fraction] 97 % Indra Johnson LPN [facility]; [facility] Work Phone: 12-29-2018 08:42-0400 BMI (Body Mass Index) 40.51 kg/m2 Indra Johnson LPN [facility] Work Phone: 12-29-2018 08:42-0400 BMI (Body Mass Index) 39.74 kg/m2 Ursula Ellison [facility] Work Phone: 12-29-2018 08:42-0400 Body Temperature 97.2 [degF] Indra Johnson LPN [facility] Work Phone: Comment on above: Method: Temporal 12-29-2018 08:42-0400 Body weight 107.06 kg Indra Johnson LPN [facility] Work Phone: 12-29-2018 08:42-0400 Body weight 105.01 kg Ursula Gary [facility] Work Phone: 12-29-2018 08:42-0400 BP Diastolic 70 mm[Hg] Indra Johnson [facility] Work Phone: Comment on above: Patient Position: Sitting; Cuff Location : Left Arm; Cuff Size: Standard 12-29-2018 08:42-0400 BP Systolic 102 mm[Hg] Indra Johnson [facility] Work Phone: Comment on above: Patient Position: Sitting; Cuff Location : Left Arm; Cuff Size: Standard 12-29-2018 08:42-0400 BSA (Body Surface Area) 2.1 m2 Indra Johnson LPN [facility] Work Phone: 12-29-2018 08:42-0400 BSA (Body Surface Area) 2.08 m2 Ursula Gary [facility] Work Phone: 12-29-2018 08:42-0400 Height 162.56 cm Indra Johnson [facility] Work Phone: 12-29-2018 08:42-0400 Pulse (Heart Rate) 80 /min Indra Johnson LPN [facility] Work Phone: Comment on above: Pattern: Regular 12-29-2018 08:42-0400 Pulse Oximetry 96 % Ursula Gary [facility] Work Phone: Comment on above: Room air 12-29-2018 08:42-0400 Respiratory Rate 16 /min Indra Johnson LPN [facility] Work Phone: Comment on above: Pattern: Unlabored 12-29-2018 08:42-0400 SaO2% (BldA) [Mass fraction] 96 % Indra Johnson LPN [facility]; [facility] Work Phone: 12-29-2018 08:42-0400 Weight 107.06 kg Ursula Gary [facility] Work Phone: 08-09-2018 14:31-0500 BMI (Body Mass Index) 39.74 kg/m2 Melissa Cramer [facility] Work Phone: 08-09-2018 14:31-0500 Body Temperature 97.7 [degF] Melissa Cramer [facility] Work Phone: Comment on above: Method: Temporal 08-09-2018 14:31-0500 Body weight 105.01 kg Melissa Cramer [facility] Work Phone: 08-09-2018 14:31-0500 BP Diastolic 74 mm[Hg] Melissa Cramer [facility] Work Phone: Comment on above: Patient Position: Sitting; Cuff Location : Left Arm; Cuff Size: Standard 08-09-2018 14:31-0500 BP Systolic 118 mm[Hg] Melissa Cramer [facility] Work Phone: Comment on above: Patient Position: Sitting; Cuff Location : Left Arm; Cuff Size: Standard 08-09-2018 14:31-0500 BSA (Body Surface Area) 2.08 m2 Melissa Cramer [facility] Work Phone: 08-09-2018 14:31-0500 Height 162.56 cm Melissa Cramer [facility] Work Phone: 08-09-2018 14:31-0500 Pulse (Heart Rate) 80 /min Melissa Cramer [facility] Work Phone: Comment on above: Pattern: Regular 08-09-2018 14:31-0500 Pulse Oximetry 99 % Ursula Gary [facility] Work Phone: Comment on above: Room air 08-09-2018 14:31-0500 Respiratory Rate 16 /min Melissa Cramer [facility] Work Phone: Comment on above: Pattern: Unlabored 08-09-2018 14:31-0500 SaO2% (BldA) [Mass fraction] 99 % Melissa Cramer [facility]; [facility] Work Phone: 08-09-2018 14:31-0500 Weight 105.01 kg Ursula Gary [facility] Work Phone: 09-29-2017 16:00-0500 BMI (Body Mass Index) 37.59 kg/m2 Alycia Armando RN [facility] Work Phone: 09-29-2017 16:00-0500 Body Temperature 97.2 [degF] Alycia Armando RN [facility] Work Phone: Comment on above: Method: Temporal 09-29-2017 16:00-0500 Body weight 99.34 kg Alycia Armando RN [facility] Work Phone: 09-29-2017 16:00-0500 BP Diastolic 82 mm[Hg] Alycia Armando RN [facility] Work Phone: Comment on above: Patient Position: Sitting; Cuff Location : Left Arm; Cuff Size: Standard 09-29-2017 16:00-0500 BP Systolic 128 mm[Hg] Alycia Armando RN [facility] Work Phone: Comment on above: Patient Position: Sitting; Cuff Location : Left Arm; Cuff Size: Standard 09-29-2017 16:00-0500 BSA (Body Surface Area) 2.03 m2 Alycia Armando RN [facility] Work Phone: 09-29-2017 16:00-0500 Height 162.56 cm Alycia Armando RN [facility] Work Phone: 09-29-2017 16:00-0500 Pulse (Heart Rate) 88 /min Alycia Armando RN [facility] Work Phone: Comment on above: Pattern: Regular 09-29-2017 16:00-0500 Pulse Oximetry 99 % Ursula Gary [facility] Work Phone: Comment on above: Room air 09-29-2017 16:00-0500 Respiratory Rate 16 /min Alycia Armando RN [facility] Work Phone: Comment on above: Pattern: Unlabored 09-29-2017 16:00-0500 SaO2% (BldA) [Mass fraction] 99 % Alycia Armando RN [facility]; [facility] Work Phone: 09-29-2017 16:00-0500 Weight 99.34 kg Ursula Gary [facility] Work Phone: 09-01-2017 10:08-0500 BMI (Body Mass Index) 39.48 kg/m2 Zaina Huffman [facility] Work Phone: 09-01-2017 10:08-0500 Body Temperature 98.7 [degF] Zaina Huffman [facility] Work Phone: Comment on above: Method: Temporal 09-01-2017 10:08-0500 Body weight 104.33 kg Zaina Huffman [facility] Work Phone: 09-01-2017 10:08-0500 BP Diastolic 70 mm[Hg] Zaina Huffmna [facility] Work Phone: Comment on above: Patient Position: Sitting; Cuff Location : Left Arm; Cuff Size: Standard 09-01-2017 10:08-0500 BP Systolic 118 mm[Hg] Zaina Huffman [facility] Work Phone: Comment on above: Patient Position: Sitting; Cuff Location : Left Arm; Cuff Size: Standard 09-01-2017 10:08-0500 BSA (Body Surface Area) 2.08 m2 Zaina Huffman [facility] Work Phone: 09-01-2017 10:08-0500 Height 162.56 cm Zaina Huffman [facility] Work Phone: 09-01-2017 10:08-0500 Pulse (Heart Rate) 92 /min Zaina Huffman [facility] Work Phone: Comment on above: Pattern: Regular 09-01-2017 10:08-0500 Pulse Oximetry 98 % Ursula Gary [facility] Work Phone: Comment on above: Room air 09-01-2017 10:08-0500 Respiratory Rate 16 /min Zaina Huffman [facility] Work Phone: Comment on above: Pattern: Unlabored 09-01-2017 10:08-0500 SaO2% (BldA) [Mass fraction] 98 % Zaina Huffman [facility]; [facility] Work Phone: 09-01-2017 10:08-0500 Weight 104.33 kg Ursula Gary [facility] Work Phone: 07-03-2017 08:06-0400 BMI (Body Mass Index) 39.48 kg/m2 Audrey Johnson [facility] Work Phone: 07-03-2017 08:06-0400 Body Temperature 98.3 [degF] Audrey [facility] Work Phone: 07-03-2017 08:06-0400 Body weight 104.33 kg Audrey [facility] Work Phone: 07-03-2017 08:06-0400 BP Diastolic 64 mm[Hg] Audrey [facility] Work Phone: Comment on above: Patient Position: Sitting; Cuff Location : Left Arm; Cuff Size: Standard 07-03-2017 08:06-0400 BP Systolic 112 mm[Hg] Audrey [facility] Work Phone: Comment on above: Patient Position: Sitting; Cuff Location : Left Arm; Cuff Size: Standard 07-03-2017 08:06-0400 BSA (Body Surface Area) 2.08 m2 Audrey Johnson [facility] Work Phone: 07-03-2017 08:06-0400 Height 162.56 cm Audrey [facility] Work Phone: 07-03-2017 08:06-0400 Pulse (Heart Rate) 84 /min Audrey [facility] Work Phone: Comment on above: Pattern: Regular 07-03-2017 08:06-0400 Pulse Oximetry 98 % Ursula Gary [facility] Work Phone: Comment on above: Room air 07-03-2017 08:06-0400 Respiratory Rate 17 /min Audrey [facility] Work Phone: Comment on above: Pattern: Unlabored 07-03-2017 08:06-0400 SaO2% (BldA) [Mass fraction] 98 % Audrey Johnson [facility]; [facility] Work Phone: 07-03-2017 08:06-0400 Weight 104.33 kg Ursula Gary [facility] Work Phone: 07-03-2017 07:55-0400 BMI (Body Mass Index) 40.38 kg/m2 Chel Ho RN [facility] Work Phone: 07-03-2017 07:55-0400 Body weight 106.71 kg Chel Ho RN [facility] Work Phone: 07-03-2017 07:55-0400 BSA (Body Surface Area) 2.1 m2 Chel Ho RN [facility] Work Phone: 07-03-2017 07:55-0400 Height 162.56 cm Chel Ho RN [facility] Work Phone: 07-03-2017 07:55-0400 Weight 106.71 kg Ursula Gary [facility] Work Phone: 06-22-2017 08:46-0400 BMI (Body Mass Index) 38.96 kg/m2 Jairon [facility] Work Phone: 06-22-2017 08:46-0400 Body Temperature 98.1 [degF] Jairon [facility] Work Phone: 06-22-2017 08:46-0400 BP Diastolic 78 mm[Hg] Jairon [facility] Work Phone: 06-22-2017 08:46-0400 BP Systolic 120 mm[Hg] Jairon [facility] Work Phone: 06-22-2017 08:46-0400 Height 162.56 cm Jairon [facility] Work Phone: 06-22-2017 08:46-0400 Pulse (Heart Rate) 78 /min Jairon [facility] Work Phone: 06-22-2017 08:46-0400 Respiratory Rate 16 /min Jairon [facility] Work Phone: 06-22-2017 08:46-0400 Weight 102.97 kg Jairon [facility] Work Phone: 03-09-2017 14:31-0400 BMI (Body Mass Index) 40.38 kg/m2 Cande Slarb 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 [facility] Work Phone: 03-09-2017 14:31-0400 Body Temperature 97.6 [degF] Cande Slarb 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 [facility] Work Phone: 03-09-2017 14:31-0400 Body weight 106.71 kg Cande Slarb 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 [facility] Work Phone: 03-09-2017 14:31-0400 BP Diastolic 76 mm[Hg] Cande Slarb 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 [facility] Work Phone: Comment on above: Patient Position: Sitting; Cuff Location : Left Arm; Cuff Size: Standard 03-09-2017 14:31-0400 BP Systolic 122 mm[Hg] Cande Slarb 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 [facility] Work Phone: Comment on above: Patient Position: Sitting; Cuff Location : Left Arm; Cuff Size: Standard 03-09-2017 14:31-0400 BSA (Body Surface Area) 2.1 m2 Cande Slarb 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 [facility] Work Phone: 03-09-2017 14:31-0400 Height 162.56 cm Cande Slarb 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 [facility] Work Phone: 03-09-2017 14:31-0400 Pulse (Heart Rate) 85 /min Cande Slarb 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 [facility] Work Phone: Comment on above: Pattern: Regular 03-09-2017 14:31-0400 Pulse Oximetry 98 % Ursula Gary [facility] Work Phone: Comment on above: Room air 03-09-2017 14:31-0400 Respiratory Rate 16 /min Cande Slarb 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 [facility] Work Phone: Comment on above: Pattern: Unlabored 03-09-2017 14:31-0400 SaO2% (BldA) [Mass fraction] 98 % Cande Yudirb 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 [facility]; [facility] Work Phone: 03-09-2017 14:31-0400 Weight 106.71 kg Ursula Gary [facility] Work Phone: 11-19-2016 10:55-0500 BMI (Body Mass Index) 40.55 kg/m2 Cande Slarb 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 [facility] Work Phone: 11-19-2016 10:55-0500 Body Temperature 98.1 [degF] Cande Slarb 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 [facility] Work Phone: 11-19-2016 10:55-0500 Body weight 107.16 kg Cande Yudirb 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 [facility] Work Phone: 11-19-2016 10:55-0500 BP Diastolic 78 mm[Hg] Cande Slarb 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 [facility] Work Phone: Comment on above: Patient Position: Sitting; Cuff Location : Left Arm; Cuff Size: Standard 11-19-2016 10:55-0500 BP Systolic 116 mm[Hg] Cande Slarb 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 [facility] Work Phone: Comment on above: Patient Position: Sitting; Cuff Location : Left Arm; Cuff Size: Standard 11-19-2016 10:55-0500 BSA (Body Surface Area) 2.1 m2 Cande Yudirb 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 [facility] Work Phone: 11-19-2016 10:55-0500 Height 162.56 cm Cande Yudirb 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 [facility] Work Phone: 11-19-2016 10:55-0500 Pulse (Heart Rate) 97 /min Cande Yudirb 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 [facility] Work Phone: Comment on above: Pattern: Regular 11-19-2016 10:55-0500 Pulse Oximetry 97 % Ursula Gary [facility] Work Phone: Comment on above: Room air 11-19-2016 10:55-0500 Respiratory Rate 17 /min Cande Yudirb 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 [facility] Work Phone: Comment on above: Pattern: Unlabored 11-19-2016 10:55-0500 SaO2% (BldA) [Mass fraction] 97 % Cande Slarb 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 [facility]; [facility] Work Phone: 11-19-2016 10:55-0500 Weight 107.16 kg Ursula Gary [facility] Work Phone: 07-21-2016 15:48-0500 BMI (Body Mass Index) 40.17 kg/m2 Cande Slarb 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 [facility] Work Phone: 07-21-2016 15:48-0500 Body Temperature 97.4 [degF] Cande Slarb 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 [facility] Work Phone: 07-21-2016 15:48-0500 Body weight 106.14 kg Cande Slarb 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 [facility] Work Phone: 07-21-2016 15:48-0500 BP Diastolic 76 mm[Hg] Cande Slarb 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 [facility] Work Phone: Comment on above: Patient Position: Sitting; Cuff Location : Left Arm; Cuff Size: Standard 07-21-2016 15:48-0500 BP Systolic 122 mm[Hg] Cande Slarb 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 [facility] Work Phone: Comment on above: Patient Position: Sitting; Cuff Location : Left Arm; Cuff Size: Standard 07-21-2016 15:48-0500 BSA (Body Surface Area) 2.09 m2 Cande Slarb 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 [facility] Work Phone: 07-21-2016 15:48-0500 Height 162.56 cm Cande Slarb 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 [facility] Work Phone: 07-21-2016 15:48-0500 Pulse (Heart Rate) 89 /min Cande Slarb 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 [facility] Work Phone: Comment on above: Pattern: Regular 07-21-2016 15:48-0500 Pulse Oximetry 98 % Ursula Gary [facility] Work Phone: Comment on above: Room air 07-21-2016 15:48-0500 Respiratory Rate 16 /min Candegiovani Bach SHAVONNE [facility] Work Phone: Comment on above: Pattern: Unlabored 07-21-2016 15:48-0500 SaO2% (BldA) [Mass fraction] 98 % Cande Bach 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 [facility]; [facility] Work Phone: 07-21-2016 15:48-0500 Weight 106.14 kg Ursula Gary [facility] Work Phone: 02-01-2016 08:57-0400 BMI (Body Mass Index) 39.48 kg/m2 Jignesh Gibson MD Work Phone: [facility] Work Phone: Comment on above: refuse weight today 02-01-2016 08:57-0400 Body Temperature 97.6 [degF] Jignesh Gibson MD Work Phone: [facility] Work Phone: Comment on above: Method: Temporal refuse weight today 02-01-2016 08:57-0400 Body weight 104.33 kg Jignesh Gibson MD Work Phone: [facility] Work Phone: Comment on above: refuse weight today 02-01-2016 08:57-0400 BP Diastolic 76 mm[Hg] Jignesh Gibson MD Work Phone: [facility] Work Phone: Comment on above: Patient Position: Sitting; Cuff Location : Left Arm; Cuff Size: Standard refuse weight today 02-01-2016 08:57-0400 BP Systolic 118 mm[Hg] Jignesh Gibson MD Work Phone: [facility] Work Phone: Comment on above: Patient Position: Sitting; Cuff Location : Left Arm; Cuff Size: Standard refuse weight today 02-01-2016 08:57-0400 BSA (Body Surface Area) 2.08 m2 Jignesh Gibson MD Work Phone: [facility] Work Phone: Comment on above: refuse weight today 02-01-2016 08:57-0400 Height 162.56 cm Jignesh Gibson MD Work Phone: [facility] Work Phone: Comment on above: refuse weight today 02-01-2016 08:57-0400 Pulse (Heart Rate) 74 /min Jignesh Gibson MD Work Phone: [facility] Work Phone: Comment on above: Pattern: Regular refuse weight today 02-01-2016 08:57-0400 Pulse Oximetry 97 % Ursula Abdirahman [facility] Work Phone: Comment on above: Room air refuse weight today 02-01-2016 08:57-0400 Respiratory Rate 18 /min Jignesh Gibson MD Work Phone: [facility] Work Phone: Comment on above: Pattern: Unlabored refuse weight today 02-01-2016 08:57-0400 SaO2% (BldA) [Mass fraction] 97 % Jignesh Gibson MD Work Phone: [facility]; [facility] Work Phone: 02-01-2016 08:57-0400 Weight 104.33 kg Ursula Romerogonzález [facility] Work Phone: Comment on above: refuse weight today 12-04-2015 10:50-0400 BMI (Body Mass Index) 39.48 kg/m2 CELESTE Perales LPN [facility] Work Phone: 12-04-2015 10:50-0400 Body Temperature 97.5 [degF] CELESTE Perales LPN [facility] Work Phone: Comment on above: Method: Temporal 12-04-2015 10:50-0400 Body weight 104.33 kg CELESTE Perales LPN [facility] Work Phone: 12-04-2015 10:50-0400 BP Diastolic 84 mm[Hg] CELESTE Perales LPN [facility] Work Phone: Comment on above: Patient Position: Sitting; Cuff Location : Left Arm; Cuff Size: Large 12-04-2015 10:50-0400 BP Systolic 126 mm[Hg] CELESTE Perales LPN [facility] Work Phone: Comment on above: Patient Position: Sitting; Cuff Location : Left Arm; Cuff Size: Large 12-04-2015 10:50-0400 BSA (Body Surface Area) 2.08 m2 CELESTE Perales LPN [facility] Work Phone: 12-04-2015 10:50-0400 Height 162.56 cm CELESTE Perales LPN [facility] Work Phone: 12-04-2015 10:50-0400 Pulse (Heart Rate) 110 /min CELESTE Perales LPN [facility] Work Phone: Comment on above: Pattern: Regular 12-04-2015 10:50-0400 Pulse Oximetry 97 % Ursula Gary [facility] Work Phone: Comment on above: Room air 12-04-2015 10:50-0400 Respiratory Rate 20 /min CELESTE Perales LPN [facility] Work Phone: Comment on above: Pattern: Unlabored 12-04-2015 10:50-0400 SaO2% (BldA) [Mass fraction] 97 % CELESTE Perales LPN [facility]; [facility] Work Phone: 12-04-2015 10:50-0400 Weight 104.33 kg Ursula Gary [facility] Work Phone: 10-16-2015 11:50-0500 BMI (Body Mass Index) 39.48 kg/m2 Zaina Mansara [facility] Work Phone: 10-16-2015 11:50-0500 Body Temperature 97.7 [degF] Zaina Chongsara [facility] Work Phone: Comment on above: Method: Temporal 10-16-2015 11:50-0500 Body weight 104.33 kg Zaina Diezbraden [employer] [facility] Work Phone: 10-16-2015 11:50-0500 BP Diastolic 75 mm[Hg] Zaina Huffman [facility] Work Phone: Comment on above: Patient Position: Sitting; Cuff Location : Left Arm; Cuff Size: Standard 10-16-2015 11:50-0500 BP Systolic 118 mm[Hg] Zaina Huffman [facility] Work Phone: Comment on above: Patient Position: Sitting; Cuff Location : Left Arm; Cuff Size: Standard 10-16-2015 11:50-0500 BSA (Body Surface Area) 2.08 m2 Zaina Huffman [facility] Work Phone: 10-16-2015 11:50-0500 Height 162.56 cm Zaina Huffman [facility] Work Phone: 10-16-2015 11:50-0500 Pulse (Heart Rate) 79 /min Zaina Huffman [facility] Work Phone: Comment on above: Pattern: Regular 10-16-2015 11:50-0500 Pulse Oximetry 99 % Ursula Gary [facility] Work Phone: Comment on above: Room air 10-16-2015 11:50-0500 Respiratory Rate 16 /min Zaina Huffman [facility] Work Phone: Comment on above: Pattern: Unlabored 10-16-2015 11:50-0500 SaO2% (BldA) [Mass fraction] 99 % Zaina Huffman [facility]; [facility] Work Phone: 10-16-2015 11:50-0500 Weight 104.33 kg Ursula Gary [facility] Work Phone: 07-16-2015 16:09-0500 BMI (Body Mass Index) 39.48 kg/m2 CELESTE Perales LPN [facility] Work Phone: 07-16-2015 16:09-0500 Body Temperature 97 [degF] CELESTE Perales LPN [facility] Work Phone: Comment on above: Method: Temporal 07-16-2015 16:09-0500 Body weight 104.33 kg CELESTE Perales LPN [facility] Work Phone: 07-16-2015 16:09-0500 BP Diastolic 78 mm[Hg] CELESTE Perales LPN [facility] Work Phone: Comment on above: Patient Position: Sitting; Cuff Location : Left Arm; Cuff Size: Large 07-16-2015 16:09-0500 BP Systolic 118 mm[Hg] CELESTE Perales LPN [facility] Work Phone: Comment on above: Patient Position: Sitting; Cuff Location : Left Arm; Cuff Size: Large 07-16-2015 16:09-0500 BSA (Body Surface Area) 2.08 m2 CELESTE Perales LPN [facility] Work Phone: 07-16-2015 16:09-0500 Height 162.56 cm CELESTE Perales LPN [facility] Work Phone: 07-16-2015 16:09-0500 Pulse (Heart Rate) 74 /min CELESTE Perales LPN [facility] Work Phone: Comment on above: Pattern: Regular 07-16-2015 16:09-0500 Pulse Oximetry 97 % Ursula Gary [facility] Work Phone: Comment on above: Room air 07-16-2015 16:09-0500 Respiratory Rate 20 /min CELESTE Perales LPN [facility] Work Phone: Comment on above: Pattern: Unlabored 07-16-2015 16:09-0500 SaO2% (BldA) [Mass fraction] 97 % CELESTE Perales LPN [facility]; [facility] Work Phone: 07-16-2015 16:09-0500 Weight 104.33 kg Ursula Gary [facility] Work Phone: 04-16-2015 14:06-0400 BMI (Body Mass Index) 39.99 kg/m2 CELESTE Perales LPN [facility] Work Phone: 04-16-2015 14:06-0400 Body Temperature 97.5 [degF] CELESTE Perales LPN [facility] Work Phone: Comment on above: Method: Temporal 04-16-2015 14:06-0400 Body weight 105.69 kg CELESTE Perales LPN [facility] Work Phone: 04-16-2015 14:06-0400 BP Diastolic 80 mm[Hg] CELESTE Perales LPN [facility] Work Phone: Comment on above: Patient Position: Sitting; Cuff Location : Left Arm; Cuff Size: Large 04-16-2015 14:06-0400 BP Systolic 126 mm[Hg] CELESTE Perales LPN [facility] Work Phone: Comment on above: Patient Position: Sitting; Cuff Location : Left Arm; Cuff Size: Large 04-16-2015 14:06-0400 BSA (Body Surface Area) 2.09 m2 CELESTE Perales LPN [facility] Work Phone: 04-16-2015 14:06-0400 Height 162.56 cm CELESTE Perales LPN [facility] Work Phone: 04-16-2015 14:06-0400 Pulse (Heart Rate) 100 /min CELESTE Perales LPN [facility] Work Phone: Comment on above: Pattern: Regular 04-16-2015 14:06-0400 Pulse Oximetry 98 % Ursula Gary [facility] Work Phone: Comment on above: Room air 04-16-2015 14:06-0400 Respiratory Rate 18 /min CELESTE Perales LPN [facility] Work Phone: Comment on above: Pattern: Unlabored 04-16-2015 14:06-0400 SaO2% (BldA) [Mass fraction] 98 % CELESTE Perales LPN [facility]; [facility] Work Phone: 04-16-2015 14:06-0400 Weight 105.69 kg Ursula Gary [facility] Work Phone: 03-19-2015 13:25-0400 BMI (Body Mass Index) 41.02 kg/m2 Alycia Armando RN [facility] Work Phone: 03-19-2015 13:25-0400 Body Temperature 98.1 [degF] Alycia Armando RN [facility] Work Phone: Comment on above: Method: Temporal 03-19-2015 13:25-0400 Body weight 108.41 kg Alycia Armando RN [facility] Work Phone: 03-19-2015 13:25-0400 BP Diastolic 72 mm[Hg] Alycia Armando RN [facility] Work Phone: Comment on above: Patient Position: Sitting; Cuff Location : Left Arm; Cuff Size: Standard 03-19-2015 13:25-0400 BP Systolic 124 mm[Hg] Alycia Armando RN [facility] Work Phone: Comment on above: Patient Position: Sitting; Cuff Location : Left Arm; Cuff Size: Standard 03-19-2015 13:25-0400 BSA (Body Surface Area) 2.11 m2 Alycia Armando RN [facility] Work Phone: 03-19-2015 13:25-0400 Height 162.56 cm Alycia Armando RN [facility] Work Phone: 03-19-2015 13:25-0400 Pulse (Heart Rate) 76 /min Alycia Armando RN [facility] Work Phone: Comment on above: Pattern: Regular 03-19-2015 13:25-0400 Pulse Oximetry 97 % Ursula Bustamantegiovani [facility] Work Phone: Comment on above: Room air 03-19-2015 13:25-0400 Respiratory Rate 16 /min Alycia Armando RN [facility] Work Phone: Comment on above: Pattern: Unlabored 03-19-2015 13:25-0400 SaO2% (BldA) [Mass fraction] 97 % Alycia Armando RN [facility]; [facility] Work Phone: 03-19-2015 13:25-0400 Weight 108.41 kg Ursula Bustamantegiovani [facility] Work Phone: 01-22-2015 14:58-0400 BMI (Body Mass Index) 41.37 kg/m2 Zaina Huffman [facility] Work Phone: 01-22-2015 14:58-0400 Body weight 109.32 kg Zaina Huffman [facility] Work Phone: 01-22-2015 14:58-0400 BP Diastolic 72 mm[Hg] Zaina Huffman [facility] Work Phone: Comment on above: Patient Position: Sitting; Cuff Location : Left Arm; Cuff Size: Standard 01-22-2015 14:58-0400 BP Systolic 124 mm[Hg] Zaina Huffman [facility] Work Phone: Comment on above: Patient Position: Sitting; Cuff Location : Left Arm; Cuff Size: Standard 01-22-2015 14:58-0400 BSA (Body Surface Area) 2.12 m2 Zaina Huffman [facility] Work Phone: 01-22-2015 14:58-0400 Height 162.56 cm Zaina Huffman [facility] Work Phone: 01-22-2015 14:58-0400 Pulse (Heart Rate) 85 /min Zaina Huffman [facility] Work Phone: Comment on above: Pattern: Regular 01-22-2015 14:58-0400 Pulse Oximetry 98 % Ursula Gary [facility] Work Phone: Comment on above: Room air 01-22-2015 14:58-0400 Respiratory Rate 16 /min Zaina Huffman [facility] Work Phone: Comment on above: Pattern: Unlabored 01-22-2015 14:58-0400 SaO2% (BldA) [Mass fraction] 98 % Zaina Huffman [facility]; [facility] Work Phone: 01-22-2015 14:58-0400 Weight 109.32 kg Ursula Gary [facility] Work Phone: 01-08-2015 11:31-0400 BMI (Body Mass Index) 41.37 kg/m2 CELESTE Perales LPN [facility] Work Phone: 01-08-2015 11:31-0400 Body Temperature 97.6 [degF] CELESTE Perales LPN [facility] Work Phone: Comment on above: Method: Temporal 01-08-2015 11:31-0400 Body weight 109.32 kg CELESTE Perales LPN [facility] Work Phone: 01-08-2015 11:31-0400 BP Diastolic 80 mm[Hg] CELESTE Perales LPN [facility] Work Phone: Comment on above: Patient Position: Sitting; Cuff Location : Left Arm; Cuff Size: Large 01-08-2015 11:31-0400 BP Systolic 126 mm[Hg] CELESTE Perales LPN [facility] Work Phone: Comment on above: Patient Position: Sitting; Cuff Location : Left Arm; Cuff Size: Large 01-08-2015 11:31-0400 BSA (Body Surface Area) 2.12 m2 CELESTE Perales LPN [facility] Work Phone: 01-08-2015 11:31-0400 Height 162.56 cm CELESTE Perales LPN [facility] Work Phone: 01-08-2015 11:31-0400 Pulse (Heart Rate) 76 /min CELESTE Perales LPN [facility] Work Phone: Comment on above: Pattern: Regular 01-08-2015 11:31-0400 Pulse Oximetry 98 % Ursula Gary [facility] Work Phone: Comment on above: Room air 01-08-2015 11:31-0400 Respiratory Rate 18 /min CELESTE Perales LPN [facility] Work Phone: Comment on above: Pattern: Unlabored 01-08-2015 11:31-0400 SaO2% (BldA) [Mass fraction] 98 % CELESTE Perales LPN [facility]; [facility] Work Phone: 01-08-2015 11:31-0400 Weight 109.32 kg Ursula Gary [facility] Work Phone: 01-01-2015 13:09-0400 BMI (Body Mass Index) 41.37 kg/m2 CELESTE Perales LPN [facility] Work Phone: 01-01-2015 13:09-0400 Body Temperature 97.9 [degF] CELESTE Perales LPN [facility] Work Phone: Comment on above: Method: Temporal 01-01-2015 13:0400 Body weight 109.32 kg CELESTE Perales LPN [facility] Work Phone: 01-01-2015 13:09-0400 BP Diastolic 70 mm[Hg] CELESTE Perales LPN [facility] Work Phone: Comment on above: Patient Position: Sitting; Cuff Location : Left Arm; Cuff Size: Large 01-01-2015 13:09-0400 BP Systolic 104 mm[Hg] CELESTE Perales LPN [facility] Work Phone: Comment on above: Patient Position: Sitting; Cuff Location : Left Arm; Cuff Size: Large 01-01-2015 13:090400 BSA (Body Surface Area) 2.12 m2 CELESTE Perales LPN [facility] Work Phone: 01-01-2015 13:0400 Height 162.56 cm CELESTE Perales LPN [facility] Work Phone: 01-01-2015 13:09-0400 Pulse (Heart Rate) 84 /min CELESTE Perales LPN [facility] Work Phone: Comment on above: Pattern: Regular 01-01-2015 13:09-0400 Pulse Oximetry 98 % Ursula Gary [facility] Work Phone: Comment on above: Room air 01-01-2015 13:09-0400 Respiratory Rate 18 /min CELESTE Perales LPN [facility] Work Phone: Comment on above: Pattern: Unlabored 01-01-2015 13:09-0400 SaO2% (BldA) [Mass fraction] 98 % CELESTE Perales LPN [facility]; [facility] Work Phone: 01-01-2015 13:09-0400 Weight 109.32 kg Ursula Gary [facility] Work Phone: 02-16-2014 10:40-0400 BMI (Body Mass Index) 38.28 kg/m2 CELESTE Perales LPN [facility] Work Phone: 02-16-2014 10:40-0400 Body Temperature 98.1 [degF] CELESTE Perales LPN [facility] Work Phone: Comment on above: Method: Oral 02-16-2014 10:40-0400 Body weight 101.15 kg CELESTE Perales LPN [facility] Work Phone: 02-16-2014 10:40-0400 BP Diastolic 78 mm[Hg] CELESTE Perales LPN [facility] Work Phone: Comment on above: Patient Position: Sitting; Cuff Location : Left Arm; Cuff Size: Large 02-16-2014 10:40-0400 BP Systolic 122 mm[Hg] CELESTE Perales LPN [facility] Work Phone: Comment on above: Patient Position: Sitting; Cuff Location : Left Arm; Cuff Size: Large 02-16-2014 10:40-0400 BSA (Body Surface Area) 2.05 m2 CELESTE Perales LPN [facility] Work Phone: 02-16-2014 10:40-0400 Height 162.56 cm CELESTE Perales LPN [facility] Work Phone: 02-16-2014 10:40-0400 Pulse (Heart Rate) 84 /min CELESTE Perales LPN [facility] Work Phone: Comment on above: Pattern: Regular 02-16-2014 10:40-0400 Pulse Oximetry 98 % Ursula Gary [facility] Work Phone: Comment on above: Room air 02-16-2014 10:40-0400 Respiratory Rate 20 /min CELESTE Perales LPN [facility] Work Phone: Comment on above: Pattern: Unlabored 02-16-2014 10:40-0400 SaO2% (BldA) [Mass fraction] 98 % CELESTE Perales 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 [facility]; [facility] Work Phone: 02-16-2014 10:40-0400 Weight 101.15 kg Ursula Gary [facility] Work Phone: 02-15-2014 10:24-0400 BMI (Body Mass Index) 38.28 kg/m2 Yumiko Davis LPN [facility] Work Phone: 02-15-2014 10:24-0400 Body Temperature 98.7 [degF] Yumiko Davis LPN [facility] Work Phone: Comment on above: Method: Oral 02-15-2014 10:24-0400 Body weight 101.15 kg Yumiko Davis LPN [facility] Work Phone: 02-15-2014 10:24-0400 BP Diastolic 70 mm[Hg] Yumiko Davis LPN [facility] Work Phone: Comment on above: Patient Position: Sitting; Cuff Location : Left Arm; Cuff Size: Standard 02-15-2014 10:24-0400 BP Systolic 126 mm[Hg] Yumiko Davis LPN [facility] Work Phone: Comment on above: Patient Position: Sitting; Cuff Location : Left Arm; Cuff Size: Standard 02-15-2014 10:240400 BSA (Body Surface Area) 2.05 m2 Yumiko Davis LPN [facility] Work Phone: 02-15-2014 10:24-0400 Height 162.56 cm Yumiko Davis LPN [facility] Work Phone: 02-15-2014 10:24-0400 Pulse (Heart Rate) 92 /min Yumiko Davis LPN [facility] Work Phone: Comment on above: Pattern: Regular 02-15-2014 10:24-0400 Pulse Oximetry 98 % Ursula Gary [facility] Work Phone: Comment on above: Room air 02-15-2014 10:24-0400 Respiratory Rate 22 /min Yumiko Davis LPN [facility] Work Phone: 02-15-2014 10:24-0400 SaO2% (BldA) [Mass fraction] 98 % Yumiko Davis [facility]; [facility] Work Phone: 02-15-2014 10:24-0400 Weight 101.15 kg Ursula Romerogiovani [facility] Work Phone: 10-31-2013 11:26-0500 BMI (Body Mass Index) 38.28 kg/m2 Ursula Gary [facility] Work Phone: 10-31-2013 11:26-0500 Body weight 101.15 kg [facility] Work Phone: 10-31-2013 11:26-0500 BSA (Body Surface Area) 2.05 m2 Ursula [facility] Work Phone: 10-31-2013 11:26-0500 Height 162.56 cm [facility] Work Phone: 10-31-2013 11:26-0500 Weight 101.15 kg [facility] Work Phone: 09-29-2013 08:07-0500 BMI (Body Mass Index) 39.65 kg/m2 CELESTE Perales [facility] Work Phone: 09-29-2013 08:07-0500 Body Temperature 97.6 [degF] CELESTE Rayshawn [facility] Work Phone: Comment on above: Method: Oral 09-29-2013 08:07-0500 Body weight 104.78 kg CELESTE Perales [facility] Work Phone: 09-29-2013 08:07-0500 BP Diastolic 74 mm[Hg] CELESTE Perales [facility] Work Phone: Comment on above: Patient Position: Sitting; Cuff Location : Left Arm; Cuff Size: Large 09-29-2013 08:07-0500 BP Systolic 118 mm[Hg] CELESTE Perales [facility] Work Phone: Comment on above: Patient Position: Sitting; Cuff Location : Left Arm; Cuff Size: Large 09-29-2013 08:07-0500 BSA (Body Surface Area) 2.08 m2 CELESTE Perales LPN [facility] Work Phone: 09-29-2013 08:07-0500 Height 162.56 cm CELESTE Perales LPN [facility] Work Phone: 09-29-2013 08:07-0500 Pulse (Heart Rate) 70 /min CELESTE Perales 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 [facility] Work Phone: Comment on above: Pattern: Regular 09-29-2013 08:07-0500 Respiratory Rate 20 /min CELESTE Perales LPN [facility] Work Phone: Comment on above: Pattern: Unlabored 09-29-2013 08:07-0500 Weight 104.78 kg Ursula Gary [facility] Work Phone: 06-18-2012 09:09-0400 BMI (Body Mass Index) 37.62 kg/m2 Chel Ho RN [facility] Work Phone: 06-18-2012 09:09-0400 Body Temperature 98.1 [degF] Chel Ho RN [facility] Work Phone: Comment on above: Method: Oral 06-18-2012 09:09-0400 Body weight 99.42 kg Chel Ho RN [facility] Work Phone: 06-18-2012 09:09-0400 BP Diastolic 80 mm[Hg] Chel Ho RN [facility] Work Phone: Comment on above: Patient Position: Sitting; Cuff Location : Left Arm; Cuff Size: Large 06-18-2012 09:09-0400 BP Systolic 120 mm[Hg] Chel Ho RN [facility] Work Phone: Comment on above: Patient Position: Sitting; Cuff Location : Left Arm; Cuff Size: Large 06-18-2012 09:09-0400 BSA (Body Surface Area) 2.03 m2 Chel Ho RN [facility] Work Phone: 06-18-2012 09:09-0400 Height 162.56 cm Chel Ho RN [facility] Work Phone: 06-18-2012 09:09-0400 Pulse (Heart Rate) 68 /min Chel Ho RN [facility] Work Phone: Comment on above: Pattern: Regular 06-18-2012 09:09-0400 Respiratory Rate 20 /min Chel Ho RN [facility] Work Phone: Comment on above: Pattern: Unlabored 06-18-2012 09:09-0400 Weight 99.42 kg Ursula Gary [facility] Work Phone: 11-07-2011 11:08-0500 BMI (Body Mass Index) 38.62 kg/m2 CELESTE Perales LPN [facility] Work Phone: 11-07-2011 11:08-0500 Body Temperature 97.9 [degF] CELESTE Perales LPN [facility] Work Phone: Comment on above: Method: Oral 11-07-2011 11:08-0500 Body weight 102.06 kg CELESTE Perales LPN [facility] Work Phone: 11-07-2011 11:08-0500 BP Diastolic 84 mm[Hg] CELESTE Perales LPN [facility] Work Phone: Comment on above: Patient Position: Sitting; Cuff Location : Left Arm; Cuff Size: Standard 11-07-2011 11:08-0500 BP Systolic 124 mm[Hg] CELESTE Rayshawn MARVIN [facility] Work Phone: Comment on above: Patient Position: Sitting; Cuff Location : Left Arm; Cuff Size: Standard 11-07-2011 11:08-0500 BSA (Body Surface Area) 2.06 m2 CELESTE Perales LPN [facility] Work Phone: 11-07-2011 11:08-0500 Height 162.56 cm CELESTE Perales LPN [facility] Work Phone: 11-07-2011 11:08-0500 Pulse (Heart Rate) 74 /min CELESTE Perales LPN [facility] Work Phone: Comment on above: Pattern: Regular 11-07-2011 11:08-0500 Respiratory Rate 18 /min CELESTE Perales LPN [facility] Work Phone: Comment on above: Pattern: Unlabored 11-07-2011 11:08-0500 Weight 102.06 kg Ursula Gary [facility] Medicine Work Phone: 10-03-2011 07:13-0500 BMI (Body Mass Index) 36.73 kg/m2 CELESTE Perales [facility] Internal Medicine Work Phone: 10-03-2011 07:13-0500 Body Temperature 97.6 [degF] CELESTE Perales [facility] Internal Medicine Work Phone: Comment on above: Method: Oral 10-03-2011 07:13-0500 Body weight 97.07 kg CELESTE Perales [facility] Internal Medicine Work Phone: 10-03-2011 07:13-0500 BP Diastolic 74 mm[Hg] CELESTE Perales [facility] Internal Medicine Work Phone: Comment on above: Patient Position: Sitting; Cuff Location : Left Arm; Cuff Size: Standard 10-03-2011 07:13-0500 BP Systolic 116 mm[Hg] CELESTE Perales [facility] Internal Medicine Work Phone: Comment on above: Patient Position: Sitting; Cuff Location : Left Arm; Cuff Size: Standard 10-03-2011 07:13-0500 BSA (Body Surface Area) 2.01 m2 CELESTE Perales 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 [facility] Work Phone: 10-03-2011 07:13-0500 Height 162.56 cm CELESTE Perales [facility] Internal Medicine Work Phone: 10-03-2011 07:13-0500 Pulse (Heart Rate) 72 /min CELESTE Perales [facility] Internal Medicine Work Phone: Comment on above: Pattern: Regular 10-03-2011 07:13-0500 Respiratory Rate 18 /min CELESTE Perales [facility] Internal Medicine Work Phone: Comment on above: Pattern: Unlabored 10-03-2011 07:13-0500 Weight 97.07 kg Ursula Gary [facility] Work Phone: 07-22-2011 13:34-0500 Body Temperature 97.9 [degF] Yumiko Davis 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 [facility] Work Phone: Comment on above: Method: Oral 07-22-2011 13:34-0500 BP Diastolic 70 mm[Hg] Yumiko Davis LPN [facility] Work Phone: Comment on above: Patient Position: Sitting; Cuff Location : Left Arm; Cuff Size: Standard 07-22-2011 13:34-0500 BP Systolic 110 mm[Hg] Yumiko Davis LPN [facility] Work Phone: Comment on above: Patient Position: Sitting; Cuff Location : Left Arm; Cuff Size: Standard 07-22-2011 13:34-0500 Height 162.56 cm Yumiko Davis LPN [facility] Work Phone: 07-22-2011 13:34-0500 Pulse (Heart Rate) 82 /min Yumiko Davis LPN [facility] Work Phone: Comment on above: Pattern: Regular 07-22-2011 13:34-0500 Respiratory Rate 16 /min Yumiko Davis LPN [facility] Work Phone: 06-27-2011 14:21-0400 BMI (Body Mass Index) 36.82 kg/m2 Yumiko Davis LPN [facility] Work Phone: 06-27-2011 14:21-0400 Body Temperature 99.3 [degF] Yumiko Davis LPN [facility] Work Phone: Comment on above: Method: Oral 06-27-2011 14:21-0400 Body weight 97.3 kg Yumiko Davis LPN [facility] Work Phone: 06-27-2011 14:21-0400 BP Diastolic 72 mm[Hg] Yumiko Davis LPN [facility] Work Phone: Comment on above: Patient Position: Sitting; Cuff Location : Left Arm; Cuff Size: Standard 06-27-2011 14:21-0400 BP Systolic 112 mm[Hg] Yumiko Davis LPN [facility] Work Phone: Comment on above: Patient Position: Sitting; Cuff Location : Left Arm; Cuff Size: Standard 06-27-2011 14:21-0400 BSA (Body Surface Area) 2.02 m2 Yumiko Davis LPN [facility] Work Phone: 06-27-2011 14:21-0400 Height 162.56 cm Yumiko Davis LPN [facility] Work Phone: 06-27-2011 14:21-0400 Pulse (Heart Rate) 74 /min Yumiko Davis LPN [facility] Work Phone: Comment on above: Pattern: Regular 06-27-2011 14:21-0400 Respiratory Rate 16 /min Yumiko Davis LPN [facility] Work Phone: 06-27-2011 14:21-0400 Weight 97.3 kg Ursula Gary [facility] Work Phone: 05-01-2011 11:37-0400 BMI (Body Mass Index) 38.45 kg/m2 CELESTE Perales [facility] Work Phone: 05-01-2011 11:37-0400 Body Temperature 97.7 [degF] CELESTE Perales 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 [facility] Work Phone: Comment on above: Method: Oral 05-01-2011 11:37-0400 Body weight 101.61 kg CELESTE Perales LPN [facility] Work Phone: 05-01-2011 11:37-0400 BP Diastolic 74 mm[Hg] CELESTE Perales 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 [facility] Work Phone: Comment on above: Patient Position: Sitting; Cuff Location : Left Arm; Cuff Size: Standard 05-01-2011 11:37-0400 BP Systolic 122 mm[Hg] CELESTE Perales LPN [facility] Work Phone: Comment on above: Patient Position: Sitting; Cuff Location : Left Arm; Cuff Size: Standard 05-01-2011 11:37-0400 BSA (Body Surface Area) 2.05 m2 CELESTE Perales LPN [facility] Work Phone: 05-01-2011 11:37-0400 Height 162.56 cm CELESTE Perales [facility] Medicine Work Phone: 05-01-2011 11:37-0400 Pulse (Heart Rate) 64 /min CELESTE Perales LPN [facility] Work Phone: Comment on above: Pattern: Regular 05-01-2011 11:37-0400 Respiratory Rate 18 /min CELESTE Perales LPN [facility] Work Phone: Comment on above: Pattern: Unlabored 05-01-2011 11:37-0400 Weight 101.61 kg Ursula Gary [facility] Work Phone: 2011 10:03-0400 BMI (Body Mass Index) 38.45 kg/m2 Yumiko Davis LPN [facility] Work Phone: 2011 10:03-0400 Body Temperature 98.7 [degF] Yumiko Davis LPN [facility] Work Phone: Comment on above: Method: Oral 2011 10:03-0400 Body weight 101.61 kg Yumiko Davis LPN [facility] Work Phone: 2011 10:03-0400 BP Diastolic 74 mm[Hg] Yumiko Davis LPN [facility] Work Phone: Comment on above: Patient Position: Sitting; Cuff Location : Left Arm; Cuff Size: Standard 2011 10:03-0400 BP Systolic 130 mm[Hg] Yumiko Daivs LPN [facility] Work Phone: Comment on above: Patient Position: Sitting; Cuff Location : Left Arm; Cuff Size: Standard 2011 10:03-0400 BSA (Body Surface Area) 2.05 m2 Yumiko Davis LPN [facility] Work Phone: 2011 10:03-0400 Height 162.56 cm Yumiko Davis LPN [facility] Work Phone: 2011 10:03-0400 Pulse (Heart Rate) 74 /min Yumiko Davis LPN [facility] Work Phone: Comment on above: Pattern: Regular 2011 10:03-0400 Respiratory Rate 17 /min Yumiko Davis LPN [facility] Work Phone: Comment on above: Pattern: Unlabored 2011 10:03-0400 Weight 101.61 kg Ursula Gary [facility] Work Phone: 04-07-2011 14:23-0400 BMI (Body Mass Index) 38.45 kg/m2 CELESTE Perales LPN [facility] Work Phone: 04-07-2011 14:23-0400 Body Temperature 97.6 [degF] CELESTE Perales LPN [facility] Work Phone: Comment on above: Method: Oral 04-07-2011 14:23-0400 Body weight 101.61 kg CELESTE Perales LPN [facility] Work Phone: 04-07-2011 14:23-0400 BP Diastolic 72 mm[Hg] CELESTE Perales 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 [facility] Work Phone: Comment on above: Patient Position: Sitting; Cuff Location : Left Arm; Cuff Size: Standard 04-07-2011 14:23-0400 BP Systolic 114 mm[Hg] CELESTE Perales LPN [facility] Work Phone: Comment on above: Patient Position: Sitting; Cuff Location : Left Arm; Cuff Size: Standard 04-07-2011 14:23-0400 BSA (Body Surface Area) 2.05 m2 CELESTE Perales LPN [facility] Work Phone: 04-07-2011 14:23-0400 Height 162.56 cm CELESTE Perales LPN [facility] Work Phone: 04-07-2011 14:23-0400 Pulse (Heart Rate) 74 /min CELESTE Perales LPN [facility] Work Phone: Comment on above: Pattern: Regular 04-07-2011 14:23-0400 Respiratory Rate 18 /min CELESTE Perales LPN [facility] Work Phone: Comment on above: Pattern: Unlabored 04-07-2011 14:23-0400 Weight 101.61 kg Ursula Gary [facility] Work Phone: 03-25-2011 11:08-0400 BMI (Body Mass Index) 38.45 kg/m2 Alycia Armando RN [facility] Medicine Work Phone: 03-25-2011 11:08-0400 Body Temperature 97.9 [degF] Alycia Armando RN [facility] Work Phone: Comment on above: Method: Oral 03-25-2011 11:08-0400 Body weight 101.61 kg Alycia Armando RN [facility] Work Phone: 03-25-2011 11:08-0400 BSA (Body Surface Area) 2.05 m2 Alycia Armando RN [facility] Work Phone: 03-25-2011 11:08-0400 Height 162.56 cm Alycia Armando RN [facility] Work Phone: 03-25-2011 11:08-0400 Pulse (Heart Rate) 72 /min Alycia Armando RN [facility] Work Phone: Comment on above: Pattern: Regular 03-25-2011 11:08-0400 Pulse Oximetry 97 % Ursula Gary [facility] Work Phone: Comment on above: Room air 03-25-2011 11:08-0400 Respiratory Rate 16 /min Alycia Armando RN [facility] Work Phone: Comment on above: Pattern: Unlabored 03-25-2011 11:08-0400 SaO2% (BldA) [Mass fraction] 97 % Alycia Armando RN [facility]; [facility] Work Phone: 03-25-2011 11:08-0400 Weight 101.61 kg Ursula Gary [facility] Work Phone: 12-17-2010 12:20-0400 Body Temperature 97.9 [degF] Rebekah Blackburn [facility] Work Phone: 12-17-2010 12:20-0400 BP Diastolic 68 mm[Hg] Rebekah Blackburn [facility] Work Phone: Comment on above: Patient Position: Sitting; Cuff Location : Left Arm; Cuff Size: Large 12-17-2010 12:20-0400 BP Systolic 114 mm[Hg] Rebekah Blackburn [facility] Work Phone: Comment on above: Patient Position: Sitting; Cuff Location : Left Arm; Cuff Size: Large 12-17-2010 12:20-0400 Pulse (Heart Rate) 82 /min Rebekah Blackburn [facility] Work Phone: Comment on above: Pattern: Regular 12-17-2010 12:20-0400 Respiratory Rate 16 /min Rebekah Blackburn [facility] Work Phone: Comment on above: Pattern: Unlabored 07-08-2010 16:24-0400 Body Temperature 97.8 [degF] Rebekah Blackburn [facility] Work Phone: 07-08-2010 16:24-0400 Body weight 101.61 kg Rebekah Blackburn [facility] Work Phone: 07-08-2010 16:24-0400 BP Diastolic 70 mm[Hg] Rebekah Blackburn [facility] Work Phone: Comment on above: Patient Position: Sitting; Cuff Location : Left Arm; Cuff Size: Standard 07-08-2010 16:24-0400 BP Systolic 102 mm[Hg] Rebekah Blackburn [facility] Work Phone: Comment on above: Patient Position: Sitting; Cuff Location : Left Arm; Cuff Size: Standard 07-08-2010 16:24-0400 Pulse (Heart Rate) 84 /min Rebekah Blackburn [facility] Work Phone: Comment on above: Pattern: Regular 07-08-2010 16:24-0400 Respiratory Rate 18 /min Rebekah Blackburn [facility] Work Phone: Comment on above: Pattern: Unlabored 07-08-2010 16:24-0400 Weight 101.61 kg Ursula Romerodenaegiovani [facility] Work Phone: 04-30-2010 10:21-0400 Body Temperature 102.6 [degF] Rebekah Bere [facility] Work Phone: Comment on above: Method: Oral 04-30-2010 10:21-0400 BP Diastolic 86 mm[Hg] Rebekah Bere [facility] Work Phone: Comment on above: Patient Position: Sitting; Cuff Location : Left Arm; Cuff Size: Standard 04-30-2010 10:21-0400 BP Systolic 136 mm[Hg] Rebekah Bere [facility] Work Phone: Comment on above: Patient Position: Sitting; Cuff Location : Left Arm; Cuff Size: Standard 04-30-2010 10:21-0400 Pulse (Heart Rate) 102 /min Rebekah Bere [facility] Work Phone: Comment on above: Pattern: Regular 04-30-2010 10:21-0400 Pulse Oximetry 98 % Ursula Romerodenaegiovani [facility] Work Phone: Comment on above: Room air 04-30-2010 10:21-0400 Respiratory Rate 18 /min Rebekah Bere [facility] Work Phone: Comment on above: Pattern: Unlabored 04-30-2010 10:21-0400 SaO2% (BldA) [Mass fraction] 98 % Rebekah Blackburn [facility]; [facility] Work Phone: 04-12-2010 11:15-0400 Body Temperature 97.9 [degF] CELESTE Perales LPN [facility] Work Phone: Comment on above: Method: Oral 04-12-2010 11:15-0400 Body weight 102.06 kg CELESTE Perales LPN [facility] Work Phone: 04-12-2010 11:15-0400 BP Diastolic 74 mm[Hg] CELESTE Perales LPN [facility] Work Phone: Comment on above: Patient Position: Sitting; Cuff Location : Left Arm; Cuff Size: Large 04-12-2010 11:15-0400 BP Systolic 114 mm[Hg] CELESTE Perales LPN [facility] Work Phone: Comment on above: Patient Position: Sitting; Cuff Location : Left Arm; Cuff Size: Large 04-12-2010 11:15-0400 Pulse (Heart Rate) 70 /min CELESTE Perales [facility] Work Phone: Comment on above: Pattern: Regular 04-12-2010 11:15-0400 Respiratory Rate 18 /min CELESTE Perales [facility] Work Phone: Comment on above: Pattern: Unlabored 04-12-2010 11:15-0400 Weight 102.06 kg Ursula Gary [facility] Work Phone: 03-14-2010 11:57-0400 BP Diastolic 78 mm[Hg] CELESTE Perales [facility] Work Phone: Comment on above: Patient Position: Sitting; Cuff Location : Left Arm; Cuff Size: Standard 03-14-2010 11:57-0400 BP Systolic 118 mm[Hg] CELESTE Perales [facility] Work Phone: Comment on above: Patient Position: Sitting; Cuff Location : Left Arm; Cuff Size: Standard 03-14-2010 11:57-0400 Pulse (Heart Rate) 72 /min CELESTE Perales [facility] Work Phone: Comment on above: Pattern: Regular 03-14-2010 11:57-0400 Respiratory Rate 18 /min CELESTE Perales [facility] Work Phone: Comment on above: Pattern: Unlabored 12-17-2009 16:20-0400 BMI (Body Mass Index) 36.2 kg/m2 Yuimko Davis [facility] Work Phone: 12-17-2009 16:20-0400 Body Temperature 97.6 [degF] Yumiko Davis [facility] Work Phone: Comment on above: Method: Oral 12-17-2009 16:20-0400 Body weight 93.44 kg Yumiko Davis [facility] Work Phone: 12-17-2009 16:20-0400 BP Diastolic 74 mm[Hg] Yumiko Davis [facility] Work Phone: Comment on above: Patient Position: Sitting; Cuff Location : Left Arm; Cuff Size: Standard 12-17-2009 16:20-0400 BP Systolic 126 mm[Hg] Yumiko Davis [facility] Work Phone: Comment on above: Patient Position: Sitting; Cuff Location : Left Arm; Cuff Size: Standard 12-17-2009 16:20-0400 BSA (Body Surface Area) 1.96 m2 Yumiko Davis [facility] Work Phone: 12-17-2009 16:20-0400 Height 160.66 cm Yumiko Davis [facility] Work Phone: 12-17-2009 16:20-0400 Pulse (Heart Rate) 74 /min Yumiko Davis [facility] Work Phone: Comment on above: Pattern: Regular 12-17-2009 16:20-0400 Respiratory Rate 17 /min Yumiko Davis [facility] Work Phone: Comment on above: Pattern: Unlabored 12-17-2009 16:20-0400 [facility] 93.44 [facility]: 08-15-2009 09:23-0500 Body weight 0 kg CELESTE Perales [facility] Work Phone: 08-15-2009 09:23-0500 BP Diastolic 78 mm[Hg] CELESTE Rayshawn [facility] Work Phone: Comment on above: Patient Position: Sitting; Cuff Location : Left Arm; Cuff Size: Large 08-15-2009 09:23-0500 BP Systolic 106 mm[Hg] CELESTEIRINA Perales [facility] Work Phone: Comment on above: Patient Position: Sitting; Cuff Location : Left Arm; Cuff Size: Large 08-15-2009 09:23-0500 Head Circumference 0 cm [facility] Work [facility]: 08-15-2009 09:23-0500 Head Occipital-frontal circumference 0 cm CELESTE Peralse LPN [facility]; [facility] Work Phone: 08-15-2009 09:23-0500 Height 0 cm CELESTE Perales LPN [facility] Work Phone: 08-15-2009 09:23-0500 Pulse (Heart Rate) 64 /min CELESTE Perales LPN [facility] Work Phone: Comment on above: Pattern: Regular 08-15-2009 09:23-0500 Respiratory Rate 16 /min CELESTE Perales LPN [facility] Work Phone: Comment on above: Pattern: Unlabored 08-15-2009 09:23-0500 Weight 0 kg Ursula Gary [facility] Work Phone: 10-23-2008 09:06-0500 Body Temperature 96.9 [degF] Charmaine A Fast DO Work Phone: [facility] Work Phone: Comment on above: Method: Undefined 10-23-2008 09:06-0500 Body weight 0 kg Charmaine A Fast DO Work Phone: [facility] Work Phone: 10-23-2008 09:06-0500 BP Diastolic 74 mm[Hg] Charmaine A Fast DO Work Phone: [facility] Work Phone: Comment on above: Patient Position: Sitting; Cuff Location : Right Arm; Cuff Size: Large 10-23-2008 09:06-0500 BP Systolic 104 mm[Hg] Charmaine A Fast DO Work Phone: [facility] Work Phone: Comment on above: Patient Position: Sitting; Cuff Location : Right Arm; Cuff Size: Large 10-23-2008 09:06-0500 Head Circumference 0 cm Ursula Gary [facility] Work Phone: 10-23-2008 09:06-0500 Head Occipital-frontal circumference 0 cm Charmaine A Fast DO Work Phone: [facility]; [facility] Work Phone: 10-23-2008 09:06-0500 Height 0 cm Charmaine A Fast DO Work Phone: [facility] Work Phone: 10-23-2008 09:06-0500 Pulse (Heart Rate) 72 /min Charmaine A Fast DO Work Phone: [facility] Work Phone: Comment on above: Pattern: Regular 10-23-2008 09:06-0500 Pulse Oximetry 99 % Ursula Gary [facility] Work Phone: Comment on above: Room air 10-23-2008 09:06-0500 Respiratory Rate 18 /min Charmaine A Fast DO Work Phone: [facility] Work Phone: Comment on above: Pattern: Undefined 10-23-2008 09:06-0500 SaO2% (BldA) [Mass fraction] 99 % Charmaine A Fast DO Work Phone: [facility]; [facility] Work Phone: 10-23-2008 09:06-0500 Weight 0 kg Ursula Gary [facility] Work Phone: 08-14-2008 13:05-0500 Body weight 0 kg CELESTE Perales SHAVONNE [facility] Work Phone: 08-14-2008 13:05-0500 BP Diastolic 74 mm[Hg] CELESTE Rayshawn SHAVONNE [facility] Work Phone: Comment on above: Patient Position: Sitting; Cuff Location : Left Arm; Cuff Size: Large 08-14-2008 13:05-0500 BP Systolic 114 mm[Hg] CELESTE Perales SHAVONNE [facility] Work Phone: Comment on above: Patient Position: Sitting; Cuff Location : Left Arm; Cuff Size: Large 08-14-2008 13:05-0500 Head Circumference 0 cm Ursula Gary [facility] Work Phone: 08-14-2008 13:05-0500 Head Occipital-frontal circumference 0 cm CELESTE Perales LPN [facility]; [facility] Work Phone: 08-14-2008 13:05-0500 Height 0 cm CELESTE Perales LPN [facility] Work Phone: 08-14-2008 13:05-0500 Pulse (Heart Rate) 70 /min CELESTE Perales LPN [facility] Work Phone: Comment on above: Pattern: Regular 08-14-2008 13:05-0500 Respiratory Rate 16 /min CELESTE Perales LPN [facility] Work Phone: Comment on above: Pattern: Unlabored 08-14-2008 13:05-0500 Weight 0 kg Ursula Gary [facility] Work Phone: 01-31-2008 10:56-0400 BMI (Body Mass Index) 36.2 kg/m2 Yumiko Davis LPN [facility] Work Phone: 01-31-2008 10:56-0400 Body Temperature 97.8 [degF] Yumiko Davis 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 [facility] Work Phone: Comment on above: Method: Oral 01-31-2008 10:56-0400 Body weight 93.44 kg Yumiko Davis LPN [facility] Work Phone: 01-31-2008 10:56-0400 BP Diastolic 72 mm[Hg] Yumiko Davis 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 [facility] Work Phone: Comment on above: Patient Position: Sitting; Cuff Location : Left Arm; Cuff Size: Standard 01-31-2008 10:56-0400 BP Systolic 114 mm[Hg] Yumiko Davis LPN [facility] Work Phone: Comment on above: Patient Position: Sitting; Cuff Location : Left Arm; Cuff Size: Standard 01-31-2008 10:56-0400 BSA (Body Surface Area) 1.96 m2 Yumiko Davis 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 [facility] Work Phone: 01-31-2008 10:56-0400 Head Circumference 0 cm Ursula Gary [facility] Work Phone: 01-31-2008 10:56-0400 Head Occipital-frontal circumference 0 cm Yumiko Davis 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 [facility]; [facility] Work Phone: 01-31-2008 10:56-0400 Height 160.66 cm Yumiko Davis LPN [facility] Work Phone: 01-31-2008 10:56-0400 Pulse (Heart Rate) 70 /min Yumiko Davis LPN [facility] Work Phone: Comment on above: Pattern: Regular 01-31-2008 10:56-0400 Pulse Oximetry 98 % Ursula Gary [facility] Work Phone: Comment on above: Room air 01-31-2008 10:56-0400 Respiratory Rate 17 /min Yumiko Davis LPN [facility] Work Phone: Comment on above: Pattern: Unlabored 01-31-2008 10:56-0400 SaO2% (BldA) [Mass fraction] 98 % Yumiko Davis LPN [facility]; [facility] Work Phone: 01-31-2008 10:56-0400 Weight 93.44 kg Ursula Gary [facility] Work Phone: 07-28-2007 10:22-0500 BMI (Body Mass Index) 36.2 kg/m2 CELESTE Perales LPN [facility] Work Phone: 07-28-2007 10:22-0500 Body Temperature 98.6 [degF] CELESTE Perales LPN [facility] Work Phone: Comment on above: Method: Oral 07-28-2007 10:22-0500 Body weight 93.44 kg CELESTE Perales LPN [facility] Work Phone: 07-28-2007 10:22-0500 BP Diastolic 76 mm[Hg] CELESTE Perales LPN [facility] Work Phone: Comment on above: Patient Position: Sitting; Cuff Location : Left Arm; Cuff Size: Standard 07-28-2007 10:22-0500 BP Systolic 118 mm[Hg] CELESTE Perales LPN [facility] Work Phone: Comment on above: Patient Position: Sitting; Cuff Location : Left Arm; Cuff Size: Standard 07-28-2007 10:22-0500 BSA (Body Surface Area) 1.96 m2 CELESTE Perales LPN [facility] Work Phone: 07-28-2007 10:22-0500 Head Circumference 0 cm Ursula Gary [facility] Work Phone: 07-28-2007 10:22-0500 Head Occipital-frontal circumference 0 cm CELESTE Peraels LPN [facility]; [facility] Work Phone: 07-28-2007 10:22-0500 Height 160.66 cm CELESTE Perales LPN [facility] Work Phone: 07-28-2007 10:22-0500 Pulse (Heart Rate) 70 /min CELESTE Perales LPN [facility] Work Phone: Comment on above: Pattern: Regular 07-28-2007 10:22-0500 Respiratory Rate 18 /min CELESTE Perales LPN [facility] Work Phone: Comment on above: Pattern: Unlabored 07-28-2007 10:22-0500 Weight 93.44 kg Ursula Gary [facility] Work Phone: 11-17-2006 15:14-0500 Body Temperature 97.2 [degF] Rebekah Raiazmarilyn [facility] Work Phone: Comment on above: Method: Oral 11-17-2006 15:14-0500 Body weight 0 kg Rebekah Blackburn [facility] Work Phone: 11-17-2006 15:14-0500 BP Diastolic 70 mm[Hg] [facility] Work Phone: Comment on above: Patient Position: Sitting; Cuff Location : Left Arm; Cuff Size: Standard 11-17-2006 15:14-0500 BP Systolic 100 mm[Hg] Rebekah Blackburn [facility] Work Phone: Comment on above: Patient Position: Sitting; Cuff Location : Left Arm; Cuff Size: Standard 11-17-2006 15:14-0500 Head Circumference 0 cm Ursula Gary [facility] Internal Medicine Work Phone: 11-17-2006 15:14-0500 Head Occipital-frontal circumference 0 cm Rebekah Blackburn [facility] Work Phone: 11-17-2006 15:14-0500 Height 0 cm Rebekah Bere [facility] Work Phone: 11-17-2006 15:14-0500 Pulse (Heart Rate) 72 /min Rebekah Blackburn [facility] Work Phone: Comment on above: Pattern: Regular 11-17-2006 15:14-0500 Respiratory Rate 16 /min Rebekah Bere [facility] Work Phone: Comment on above: Pattern: Unlabored 11-17-2006 15:14-0500 Weight 0 kg Ursula Gary [facility] Internal Medicine Work Phone: Encounters Encounter Date Encounter Type Care Provider Facility Start: 07-20-2025 Visit out of hours Hadley turner MD Work Phone: [facility] Work Phone: Start: 07-19-2025 In-person encounter Hadley Huerta MD Work Phone: [facility] Work Phone: Start: 06-28-2025 Visit out of hours Hadley turner MD Work Phone: [facility] Work Phone: Start: 06-28-2025 In-person encounter Hadley Huerta MD Work Phone: [facility] Work Phone: Start: 06-14-2025 End: 06-14-2025 ambulatory Zahraa Ivey Facility:[facility] Start: 04-05-2025 End: 04-05-2025 ambulatory Zahraa SAINI Work Phone: -Outpatient Breast Imaging Start: 04-05-2025 End: 04-05-2025 Patient encounter procedure Zahraa SAINI -Outpatient Breast Imaging Work Phone: Start: 04-05-2025 End: 04-05-2025 ambulatory Zahraa Ivey Facility:[facility] Start: 03-06-2025 End: 05-06-2025 Follow-up encounter Stephy Perales MD Work Phone: OB/Gynecology Start: 02-28-2025 End: 02-28-2025 Patient encounter procedure Stephy Perales MD Work Phone: OB/Gynecology Comment on above: Encounter for gyneco logical examination (general) (routine) without abnormal findings (Primary Dx); Encounter for IUD removal; Encounter for screening for human papillomavirus (HPV); Pap smear for cervical cancer screening Start: 02-28-2025 End: 02-28-2025 Patient encounter status Stephy Perales MD Work Phone: [facility] Start: 02-28-2025 End: 02-28-2025 ambulatory STEPHY PERALES Facility:[facility] Start: 02-28-2025 Encounter for gynecological examination (general) (routine) without abnormal findings STEPHY PERALES [facility] Start: 02-27-2025 End: 02-27-2025 Orders Only Stephy Perales MD Work Phone: OB/Gynecology Comment on above: Encounter for IUD re moval (Primary Dx) Start: 01-24-2025 End: 01-24-2025 Patient encounter procedure Toshia Huston DO Work Phone: Vascular Surgery Comment on above: Venous (peripheral) insufficiency (Primary Dx); Secondary lymphedema Start: 01-24-2025 End: 01-24-2025 ambulatory TOSHIA HUSTON Facility:[facility] Start: 12-07-2024 End: 12-07-2024 ambulatory Zahraa SAINI Work Phone: [facility] Work Phone: Start: 12-07-2024 End: 12-07-2024 Patient encounter procedure Zahraa SAINI -Laboratory Work Phone: Start: 12-07-2024 End: 12-07-2024 ambulatory Zahraa Ivey Facility:[facility] Start: 08-24-2024 End: 08-25-2024 Telephone encounter Toshia Huston DO Work Phone: Vascular Surgery Comment on above: Forms Start: 07-18-2024 End: 07-19-2024 Telephone encounter Toshia Huston DO Work Phone: Vascular Surgery Comment on above: Forms Start: 07-14-2024 End: 07-14-2024 ambulatory Zahraa Ivey Facility:[facility] Start: 07-05-2024 End: 07-05-2024 ambulatory TOSHIA D HUSTON Facility:[facility] Start: 07-05-2024 End: 07-05-2024 Patient encounter procedure Toshia Huston DO Work Phone: Vascular Surgery Comment on above: Secondary lymphedema (Primary Dx); Venous (peripheral) insufficiency Start: 06-17-2024 End: 06-20-2024 Telephone encounter Toshia Huston DO Work Phone: Vascular Surgery Comment on above: Forms Start: 04-15-2024 Telephone encounter Toshia Huston DO Work Phone: Vascular Surgery Comment on above: Clinical Update Start: 03-29-2024 End: 03-29-2024 ambulatory TOSHIA D HUSTON Facility:[facility] Start: 03-29-2024 End: 03-29-2024 Patient encounter procedure Toshia Huston DO Work Phone: Vascular Surgery Comment on above: Secondary lymphedema (Primary Dx); Venous (peripheral) insufficiency Start: 03-15-2024 End: 03-15-2024 ambulatory TOSHIA D HUSTON Facility:[facility] Start: 03-15-2024 End: 03-15-2024 Patient encounter procedure Toshia Huston DO Work Phone: Vascular Surgery Comment on above: Symptomatic varicose veins of both lower extremities (Primary Dx) Start: 03-01-2024 End: 03-01-2024 Patient encounter procedure Toshia Gustavo Huston DO Work Phone: Vascular Surgery Comment on above: Symptomatic varicose veins of both lower extremities (Primary Dx) Start: 02-19-2024 End: 02-19-2024 Patient encounter procedure Toshia Gustavo Huston DO Work Phone: Vascular Surgery Comment on above: Symptomatic varicose veins of both lower extremities Start: 02-18-2024 Telephone encounter Toshia Huston DO Work Phone: Vascular Surgery Comment on above: Patient Question (Me ds/Left leg symptoms post EVLT) Start: 02-12-2024 End: 02-12-2024 Patient encounter procedure Toshia Gustavo Huston DO Work Phone: Vascular Surgery Comment on above: Symptomatic varicose veins of both lower extremities (Primary Dx) Start: 01-27-2024 End: 08-29-2024 Telephone encounter Toshia Gustavo Huston DO Work Phone: Vascular Surgery Start: 01-05-2024 End: 01-05-2024 Patient encounter procedure Toshia Gustavo Huston DO Work Phone: Vascular Surgery Comment on above: Symptomatic varicose veins of both lower extremities (Primary Dx) Start: 11-10-2023 End: 11-10-2023 Patient encounter procedure Toshia Gustavo Huston DO Work Phone: Vascular Surgery Comment on above: Symptomatic varicose veins of both lower extremities (Primary Dx) Start: 08-11-2023 End: 08-11-2023 ambulatory METAL TECHNICIAN-Ji Ivey Work Phone: [facility] Work Phone: Start: 08-11-2023 End: 08-11-2023 Patient encounter procedure METAL TECHNICIAN-Ji Ivey Work Phone: [facility]-Outpatient Bone Densitometry Work Phone: Start: 08-10-2023 End: 08-10-2023 Patient encounter procedure METAL TECHNICIAN-Ji Ivey Work Phone: [facility] Work Phone: Start: 07-13-2023 Non-patient / Non-visit METAL TECHNICIAN-C Ji Ivey Work Phone: [facility] Work Phone: Start: 06-26-2023 End: 06-26-2023 Zahraa Ivey CNP Work Phone: [facility] Start: 06-26-2023 End: 06-26-2023 ambulatory METAL TECHNICIAN-C Zahraa Ivey Work Phone: [facility] Work Phone: Start: 06-26-2023 End: 06-26-2023 Patient encounter procedure METAL TECHNICIAN-C Zahraa Ivey Work Phone: [facility]-Laboratory Work Phone: Start: 06-09-2023 End: 06-09-2023 Zahraa Ivey CADD OPERATOR Work Phone: [facility] Start: 05-04-2023 End: 05-13-2023 Office outpatient visit 25 minutes Zahraa Ivey CADD OPERATOR Work Phone: [facility] Start: 03-14-2023 End: 03-14-2023 ambulatory METAL TECHNICIAN-C Zahraa Ivey Work Phone: [facility] Work Phone: Start: 03-14-2023 End: 03-14-2023 Patient encounter procedure METAL TECHNICIAN-C Zahraa Ivey Work Phone: [facility]-MRI - [facility] Work Phone: Start: 03-04-2023 End: 03-04-2023 Patient encounter procedure METAL TECHNICIAN-C Zahraa Ivey Work Phone: [facility] Work Phone: Start: 02-26-2023 End: 02-26-[address] [facility] Work Phone: Start: 02-26-2023 End: 02-26-2023 Patient encounter procedure [facility]-Outpatient Breast Imaging Start: 12-24-2022 End: 01-12-2023 Office outpatient visit 15 minutes Zahraa Ivey CNP Work Phone: [facility] Start: 12-23-2022 ambulatory Zahraa Ivey CNP [facility] Start: 12-17-2022 End: 12-17-2022 Office outpatient visit 15 minutes Zahraa Ivey CNP Work Phone: [facility] Start: 11-12-2022 End: 11-12-[address] [facility] Work Phone: Start: 11-12-2022 End: 11-12-2022 Patient encounter procedure [facility]-Laboratory Start: 11-03-2022 End: 11-04-2022 Office outpatient visit 15 minutes Zahraa Ivey CNP Work Phone: [facility] Start: 11-03-2022 Zahraa Ivey CNP Work Phone: [facility] Start: 09-25-2022 End: 09-25-[address] [facility] Work Phone: Start: 09-25-2022 End: 09-25-2022 Patient encounter procedure [facility]-Laboratory, Specimen Start: 09-03-2022 End: 09-03-2022 Patient encounter procedure [facility]-Cardiovascular Services Start: 08-29-2022 End: 08-29-2022 Admission to same day surgery center [facility]-Surgical Day Care Start: 08-29-2022 End: 08-29-[address] [facility] Work Phone: Start: 08-19-2022 End: 08-31-2022 Office consultation new/estab patient 30 min Zahraa Ivey CNP Work Phone: [facility] Start: 08-19-2022 End: 08-31-2022 Preprocedural examination done Cande Bach LPN [facility]; [facility] Work Phone: Start: 08-19-2022 Preprocedural examination done Cande Bach LPN [facility]; [facility] Work Phone: Start: 08-19-2022 Zahraa Ivey CNP Work Phone: [facility] Start: 07-09-2022 End: 07-09-2022 Patient encounter procedure Stephy Perales MD Work Phone: OB/Gynecology Comment on above: Encounter for gyneco logical examination without abnormal finding (Primary Dx); Encounter for screening mammogram for malignant neoplasm of breast; Special screening examination for human papillomavirus (HPV); Screening for cervical cancer; Need for influenza vaccination; Special screening for malignant neoplasms, colon Start: 07-09-2022 End: 07-09-2022 Patient encounter status Stephy Perales MD Work Phone: OB/Gynecology Start: 05-01-2022 End: 05-01-2022 Zahraa Ivey CNP Work Phone: [facility] Start: 04-30-2022 End: 04-30-2022 Office outpatient visit 25 minutes Zahraa Ivey CNP Work Phone: [facility] Start: 04-08-2022 End: 04-08-2022 Patient encounter procedure [facility] Start: 02-21-2022 End: 02-21-2022 Patient encounter procedure [facility] Start: 07-15-2021 End: 07-15-2021 Office outpatient visit 25 minutes Ursula Gary CNP Work Phone: [facility] Start: 07-09-2021 End: 07-09-2021 Ursula Gary CNP Work Phone: [facility] Start: 07-08-2021 End: 07-08-2021 Ursula Gary CADD OPERATOR Work Phone: [facility] Start: 06-28-2021 End: 06-28-2021 Ursula Gary CNP Work Phone: [facility] Start: 08-20-2020 End: 08-20-2020 Office outpatient visit 15 minutes Ursula Torres [facility] Start: 04-16-2020 End: 04-16-2020 Office outpatient visit 25 minutes Ursula Torres [facility] Start: 04-16-2020 Review Ursula Ellison negar Internal Medicine Start: 11-15-2019 End: 11-15-2019 Office outpatient visit 25 minutes Ursula Gary [facility] Start: 11-08-2019 End: 11-08-2019 Annotation/Addendum Ursula Gary [facility] Start: 11-08-2019 End: 11-08-2019 Ursula Gary CADD OPERATOR Work Phone: [facility] Start: 08-01-2019 End: 08-01-2019 Office outpatient visit 25 minutes Ursula Bustamantegiovani [facility] Start: 07-18-2019 End: 07-18-2019 Annotation/Addendum Ursula Gary [facility] Start: 07-18-2019 End: 07-18-2019 Ursula Gary CADD OPERATOR Work Phone: [facility] Start: 07-18-2019 End: 07-18-2019 Office outpatient visit 15 minutes Ursula Bustamantegiovani [facility] Start: 06-27-2019 End: 06-27-2019 Office outpatient visit 15 minutes Ursula Bustamantegiovani [facility] Start: 04-27-2019 End: 04-27-2019 Office outpatient visit 25 minutes Ursula Gary [facility] Start: 04-21-2019 End: 04-21-2019 Annotation/Addendum Ursula Gary [facility] Start: 04-21-2019 End: 04-21-2019 Ursula Gary CADD OPERATOR Work Phone: [facility] Start: 12-29-2018 End: 12-29-2018 Office outpatient visit 25 minutes Ursula Gary [facility] Start: 12-29-2018 Review Ursula Gary Comprehens negar Internal Medicine Start: 12-17-2018 Review Ursula Gary Comprehens negar [facility] Medicine Start: 12-17-2018 End: 12-17-2018 Annotation/Addendum Ursula Gary [facility] Start: 12-17-2018 End: 12-17-2018 Ursula Gary CADD OPERATOR Work Phone: [facility] Start: 08-09-2018 End: 08-09-2018 Office outpatient visit 25 minutes Ursula Diannagiovani [facility] Start: 09-29-2017 End: 09-29-2017 Office outpatient visit 25 minutes Ursula Romerodenaegiovani [facility] Start: 09-04-2017 End: 09-04-2017 Annotation/Addendum Ursula Bustamantegiovani [facility] Start: 09-04-2017 End: 09-04-2017 Ursula Heathergonzález CADD OPERATOR Work Phone: [facility] Start: 09-01-2017 End: 09-01-2017 Office outpatient visit 15 minutes Ursula Torres [facility] Start: 07-03-2017 End: 07-03-2017 Office outpatient visit 15 minutes Ursula Gary [facility] Start: 03-09-2017 End: 03-09-2017 Office outpatient visit 15 minutes Ursula Gary [facility] Start: 11-19-2016 End: 11-19-2016 Office outpatient visit 15 minutes Ursula Torres [facility] Start: 07-23-2016 End: 07-23-2016 Annotation/Addendum Ursula Romerodenaegiovani [facility] Start: 07-23-2016 End: 07-23-2016 Ursula Heathergonzález CADD OPERATOR Work Phone: [facility] Start: 07-21-2016 End: 07-21-2016 Office outpatient visit 25 minutes Ursula Gary [facility] Start: 02-01-2016 End: 02-01-2016 Office outpatient visit 40 minutes Ursula Gary [facility] Start: 12-04-2015 End: 12-04-2015 Office outpatient visit 40 minutes Ursula Gary [facility] Start: 10-16-2015 End: 10-16-2015 Periodic preventive med est patient 18-39 yrs Ursula Gary [facility] Start: 07-16-2015 End: 07-16-2015 Periodic preventive med est patient 18-39 yrs Ursula Gary [facility] Start: 06-11-2015 End: 06-11-2015 Phone Encounter Ursula Torres Senior Technical Analyst [facility] Medicine Start: 06-11-2015 End: 06-11-2015 Ursula Heathergonzález CADD OPERATOR Work Phone: [facility] Start: 04-16-2015 End: 04-16-2015 Office outpatient visit 10 minutes Ursula Torres [facility] Start: 03-19-2015 End: 03-19-2015 Office outpatient visit 5 minutes Ursula Gary [facility] Start: 01-22-2015 End: 01-22-2015 Office outpatient visit 25 minutes Ursula Gary [facility] Start: 01-08-2015 End: 01-08-2015 Office outpatient new 20 minutes Ursula Gary [facility] Start: 01-01-2015 End: 01-01-2015 Office outpatient visit 10 minutes Ursula Gary [facility] Start: 02-16-2014 End: 02-16-2014 Patient encounter procedure Ursula Gary [facility] Start: 02-16-2014 End: 02-16-2014 Ursula Gary CADD OPERATOR Work Phone: [facility] Start: 02-15-2014 End: 02-15-2014 Office outpatient visit 25 minutes Ursula Gary [facility] Start: 10-31-2013 End: 10-31-2013 Patient encounter procedure Ursula Gary [facility] Start: 10-31-2013 End: 10-31-2013 Ursula Gary CADD OPERATOR Work Phone: [facility] Start: 09-29-2013 End: 09-29-2013 Medical examinations/reports status Zahraa Ivey CADD OPERATOR Work Phone: [facility] Start: 09-29-2013 End: 09-29-2013 Patient encounter procedure Ursula Gary [facility] Start: 09-29-2013 End: 09-29-2013 Ursula Gary CADD OPERATOR Work Phone: [facility] Start: 06-18-2012 End: 06-18-2012 Patient encounter procedure Ursula Gary [facility] Start: 06-18-2012 End: 06-18-2012 Ursula Gary CADD OPERATOR Work Phone: [facility] Start: 06-14-2012 End: 06-14-2012 Lab Order Ursula Gary [facility] Start: 06-14-2012 End: 06-14-2012 Ursula Gary CADD OPERATOR Work Phone: [facility] Start: 11-07-2011 End: 11-09-2011 Patient encounter procedure Ursula Gary [facility] Start: 11-07-2011 End: 11-09-2011 Ursula Gary CADD OPERATOR Work Phone: [facility] Start: 10-13-2011 End: 10-13-2011 Phone Encounter Ursula Gary [facility] Start: 10-13-2011 End: 10-13-2011 Ursula Gary CADD OPERATOR Work Phone: [facility] Start: 10-03-2011 End: 10-03-2011 Patient encounter procedure Ursula Gary [facility] Start: 10-03-2011 End: 10-03-2011 Ursula Gary CADD OPERATOR Work Phone: [facility] Start: 07-22-2011 End: 07-22-2011 Office outpatient visit 25 minutes Ursula Gary [facility] Start: 06-27-2011 End: 06-27-2011 Office outpatient visit 25 minutes Ursula Gary [facility] Start: 05-01-2011 End: 05-01-2011 Patient encounter procedure Ursula Gary [facility] Start: 05-01-2011 End: 05-01-2011 Ursula Gray CADD OPERATOR Work Phone: [facility] Start: 2011 End: 2011 Office outpatient visit 15 minutes Ursula Gary [facility] Start: 04-07-2011 End: 04-07-2011 Patient encounter procedure Ursula Gary [facility] Start: 04-07-2011 End: 04-07-2011 Ursula Gary CADD OPERATOR Work Phone: [facility] Start: 03-25-2011 End: 03-25-2011 Office outpatient visit 25 minutes Ursula Gary [facility] Start: 12-17-2010 End: 12-17-2010 Patient encounter procedure Ursula Gary [facility] Start: 12-17-2010 End: 12-17-2010 Ursula Gary CADD OPERATOR Work Phone: [facility] Start: 07-08-2010 End: 07-08-2010 Patient encounter procedure Ursula Gary [facility] Start: 07-08-2010 End: 07-08-2010 Ursula Gary CADD OPERATOR Work Phone: [facility] Start: 04-30-2010 End: 04-30-2010 Phone Encounter Ursula Gary [facility] Start: 04-30-2010 End: 04-30-2010 Ursula Gary CADD OPERATOR Work Phone: [facility] Start: 04-30-2010 End: 04-30-2010 Patient encounter procedure Ursula Gary [facility] Start: 04-30-2010 End: 04-30-2010 Ursula Gary CADD OPERATOR Work Phone: [facility] Start: 04-29-2010 End: 04-29-2010 Phone Encounter Ursula Gary [facility] Start: 04-29-2010 End: 04-29-2010 Ursula Gary CNP Work Phone: [facility] Start: 04-12-2010 End: 04-12-2010 Patient encounter procedure Ursula Gary [facility] Start: 04-12-2010 End: 04-12-2010 Preprocedural examination done Zahraa Ivey MOIRA Work Phone: [facility] Start: 04-12-2010 End: 04-12-2010 Ursula Gary CNP Work Phone: [facility] Start: 03-14-2010 End: 03-14-2010 Office outpatient visit 15 minutes Ursula Gary [facility] Start: 12-17-2009 End: 12-17-2009 Office outpatient visit 10 minutes Ursula Gary [facility] Start: 08-15-2009 End: 08-15-2009 Patient encounter procedure Ursula Gary [facility] Start: 08-15-2009 End: 08-15-2009 Ursula Gary CNP Work Phone: [facility] Start: 10-23-2008 End: 10-23-2008 Patient encounter procedure Ursula Gary [facility] Start: 10-23-2008 End: 10-23-2008 Ursula Gary CNP Work Phone: [facility] Start: 08-14-2008 End: 08-14-2008 Medical examinations/reports status Zahraa Ivey CADD OPERATOR Work Phone: [facility] Start: 08-14-2008 End: 08-14-2008 Patient encounter procedure Ursula Gary [facility] Start: 08-14-2008 End: 08-14-2008 Ursula Gary CNP Work Phone: [facility] Start: 01-31-2008 End: 01-31-2008 Office outpatient visit 25 minutes Ursula Gary [facility] Start: 07-28-2007 End: 07-28-2007 Patient encounter procedure Ursula Gary [facility] Start: 07-28-2007 End: 07-28-2007 Ursula Gary CNP Work Phone: [facility] Start: 11-17-2006 End: 11-17-2006 Patient encounter procedure Ursula Gary [facility] Start: 11-17-2006 End: 11-17-2006 Ursula Gary CADD OPERATOR Work Phone: [facility] Start: 07-27-2006 End: 07-27-2006 Historical Summary Ursula Gary [facility] Start: 07-27-2006 End: 07-27-2006 Ursula Gary CADD OPERATOR Work Phone: [facility] End: 02-16-2014 Medical examinations/reports status Mony Gabi [facility] Work Phone: End: 04-29-2010 Preprocedural examination done Slag Mixer [facility] Work Phone: End: 11-03-2022 Preprocedural examination done Cande Bach LPN [facility]; [facility] Work Phone: Procedures Date Procedure Procedure Detail Performing Clinician Start: 07-20-2025 Blood pressure within normal parameters - no follow-up required Hadley Buenrostro MD Work Phone: Start: 07-20-2025 BMI documented as above normal parameters - follow-up documented Hadley Buenrostro MD Work Phone: Start: 07-20-2025 Current tobacco non-user cad cap copd pv dm Hadley Buenrostro MD Work Phone: Start: 07-20-2025 Documentation of current medications Hadley Buenrostro MD Work Phone: Start: 07-20-2025 Pain assessment documented as positive - follow-up documented Hadley Buenrostro MD Work Phone: Start: 06-28-2025 Blood pressure within normal parameters - no follow-up required Hadley Buenrostro MD Work Phone: Start: 06-28-2025 BMI outside of normal parameters - no follow-up plan/reason not given Hadley Buenrostro MD Work Phone: Start: 06-28-2025 Current tobacco non-user cad cap copd pv dm Hadley Buenrostro MD Work Phone: Start: 06-28-2025 Documentation of current medications Hadley Buenrostro MD Work Phone: Start: 06-28-2025 Pain assessment documented as negative - follow-up not required Hadley Buenrostro MD Work Phone: Start: 06-28-2025 Wrist Brace Hadley Buenrostro MD Work Phone: Start: 04-05-2025 Screening mammography Zahraa Ivey METAL TECHNICIAN- C Work Phone: Start: 08-11-2023 Dual energy X-ray absorptiometry METAL TECHNICIAN-C Zahraa Ivey Work Phone: Start: 03-14-2023 MRI of joint of lower extremity METAL TECHNICIAN-C Zahraa Ivey Work Phone: Start: 03-14-2023 End: 03-15-2023 Procedure Note: See Note; NOTES: [facility] Imaging Services [id number] [place] [address] Lower Ext Joint Only (Routine) MR#: [id number] Acct: [id number] Name: ONEAL ZABALA Rep #: [id number] : 1970 F 52 From: Mitch Grider MD PCP: YENY Mosley Status: REG CLI Study: Lower Ext Joint Only (Routine) Date of Exam: 0 03/14/23 Exam# [id number] Ordering Dr: Gen Prajapati DO INDICATION: pain ax 3 months, worse x 1 month, pain location changes with different movenments EXAMINATION: MRI - LEFT MR Knee W/O Contrast TECHNIQUE: Multiplanar and multisequence MR images of the LEFT knee. IV Contrast Dosage and Agent: None. COMPARISON: March 21, 2013 left knee MRI. March 04, 2023, knee radiograph. FINDINGS: BONE: No fracture or abnormal bone marrow signal. JOINT: Moderate effusion with mild synovial hypertrophy. No focal low signal intra-articular body. Fat lobule within 2.4 x 1.6 x 2.9 cm Sanchez''s cyst.. MUSCLES: Pes anserine tendons, semimembranosus, gastrocnemius tendons are intact.. CRUCIATE LIGAMENTS: Anterior and posterior cruciate ligaments are intact. PATELLOFEMORAL COMPARTMENT: The quadriceps and patellar tendons are intact. Patellofemoral ligaments are intact. Lateral patellar facet chondral fissure noted, grade 2 without subchondral edema. Fraying along the medial patellar facet chondral surface, grade 2. MEDIAL COMPARTMENT: Intact meniscus. Thickening of the proximal medial collateral ligament compatible with prior injury with mild edema along the superficial margin. Mild diffuse chondral thinning without focal full-thickness loss or subchondral edema. LATERAL COMPARTMENT: Intact meniscus. Intact lateral collateral ligament complex and popliteus. Mild diffuse chondral thinning without full thickness chondral loss or subchondral edema. MRI/Lower Ext Joint Only (Routine) IMPRESSION: Nonspecific moderate knee joint effusion with 2.9 cm Sanchez''s cyst. 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 No subchondral edema. Sequela of prior MCL injury with mild edema along the superficial margin. Cannot exclude grade 1 MCL sprain if there is been new injury. Electronically Signed: Mitch Grider MD at 8:54 EDT Reading Location ID and State: [address] [place] [address] Tel , Service support , CC: YENY Ivey; Dr. Gen Prajapati DO Sr. Manager Marketing: Signed Zahraa Ivey CNP Work Phone: Start: 03-04-2023 Radiologic examination of knee YENY Ivey Work Phone: Start: 03-04-2023 End: 03-05-2023 Procedure Note: See Note; NOTES: [facility] [address] [place] [address] Knee 4 or More Views MR#: [id number] Acct: [id number] Name: ONEAL ZABALA Rep #: [id number] : 1970 F 52 From: Jamshid Vega MD PCP: YENY Mosley Status: DEP AMB Study: Knee 4 or More Views Date of Exam: 03/04/23 Exam# [id number] Ordering Dr: Gen Prajapati DO EXAM: XR LEFT KNEE COMPLETE, 4 OR MORE VIEWS CLINICAL INDICATION: pain TECHNIQUE: Four or more views of the left knee. COMPARISON: 07/24/2021 FINDINGS: BONES/JOINTS: Unremarkable. No acute fracture. No subluxation. Normal alignment. Preservation of the joint space. No sclerotic or destructive changes observed. SOFT TISSUES: Unremarkable. No soft tissue swelling or gas. No radiopaque foreign body. RAD/Knee 4 or More Views IMPRESSION: Negative left knee x-rays. Electronically Signed: Jamshid Vega MD at 23:21 EDT Reading Location ID and State: [address] [place] [address] Tel , Service support , CC: AVELINA-C Zahraa Ivey; Dr. Gen Prajapati DO Sr. Manager Marketing: Signed Zahraa Ivey CNP Work Phone: Start: 03-04-2023 End: 03-04-2023 Procedure Note: See Note; NOTES: [facility] [address] [place] [address] OFFICE VISIT Date of Service: 03/04/23 MR#: [id number] Acct: [id number] Name: ONEAL ZABALA Rep #: [id number] : 1970 Provider: Dr. Gen hassan DO Age/Sex: 52/F Location: [facility] Status: Signed Intake Vital Signs 08/29/22 06:48 Height 5 ft 4 in Intake Visit Reasons: LEFT KNEE Is patient in pain?: Yes Allergies peanut Allergy (Severe, Verified 03/04/23 09:37) swelling, vomiting potato Allergy (Severe, Verified 03/04/23 09:37) SWELLING, VOMITING wheat Allergy (Severe, Verified 03/04/23 09:37) swelling, vomiting animal dander Allergy (Intermediate, Verified 03/04/23 09:37) BREATHING AND CONGESTION grass pollen Allergy (Intermediate, Verified 03/04/23 09:37) breathing and congestion mold Allergy (Intermediate, Verified 03/04/23 09:37) breathing and congestion ragweed pollen Allergy (Intermediate, Verified 03/04/23 09:37) breathing and congestion tree and shrub pollen Allergy (Intermediate, Verified 03/04/23 09:37) breathing and congestion Penicillins Allergy (Unknown, Verified 03/04/23 09:37) unknown Medications multivitamin with minerals-folic acid 200 mcg chewable tablet (One-A-Day Lionsharp Voiceboard) 1 tab PO DAILY 07/24/21 [History Confirmed 08/27/22] albuterol sulfate 90 mcg/actuation aerosol inhaler 1 inh inhalation Q6H PRN SOB 08/27/22 [History Confirmed 03/04/23] benralizumab 30 mg/mL subcutaneous auto-injector (Fasenra Pen) 30 mg subcut .[id number] 08/27/22 [History Confirmed 03/04/23] biotin 1,000 mcg chewable tablet 1,000 mcg PO DAILY 08/27/22 [History Confirmed 03/04/23] fluticasone propionate 50 mcg/actuation nasal spray,suspension (Flonase Allergy Relief) 1 spray intranasal DAILY 08/27/22 [History Confirmed 03/04/23] levonorgestrel 21 mcg/24 hours (8 yrs) 52 mg intrauterine device (Mirena) 20 mcg intrauterine DAILY 08/27/22 [History Confirmed 03/04/23] vitamin C 45 mg-zinc citrate 3.75 mg-elderberry 50 mg chewable tablet (Plan A Drink) 1 tab PO DAILY 08/27/22 [History Confirmed 03/04/23] [facility] Medical History (Updated 03/04/23 @ 10:[address] Gen Prajapati, DO) Arthritis Asthma Cardiology follow-up encounter Heartburn History of echocardiogram History of edema History of pain when walking History of stress test Hx of supraventricular tachycardia Non-smoker Wears glasses Surgical History (Updated 07/24/21 @ 11:30 by Tory Munoz) History of ankle surgery Family History (Updated 07/24/21 @ 11:32 by Tory Munoz) Father Hypertension Sister Hypertension Brother Hypertension Mother Diabetes CAD (coronary artery disease) Myocardial infarction Social History (Updated 07/24/21 @ 11:33 by Tory Munoz) household members: spouse and children Smoking Status: Never smoker alcohol intake: never substance use type: does not use what type of physical activity do you participate in: walking do you feel safe at home: Yes HPI LEFT KNEE Details: Parts of this documentation were recorded by a scribe, this documentation accurately reflects the service provided and the decisions made by me, Dr. Gen Prajapati, DO 03/04/23 5436. ONEAL ZABALA is a 52 year old F here today for left knee. Patient states that she has had left knee pain for many years with her pain worsening frequently. Patient denies any recent injection. She had surgery on her right ankle in August and was ambulating on crutches which might have flared up her knee. Patient denies any previous surgery to her knee. Patient complains of pain over her posterior knee and medial/lateral knee. She complains of loud pop which is painful which started increasing in the few weeks. Patient states that she has locking of her knee at times. She notes if she is ambulating on a flat surface she only has discomfort but if she turns wrong, she has increased pain. She has increased pain with ambulating stairs. 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 She denies any recent physical therapy or injections. She denies any recent xrays or MRI. She denies any pain medications. Ortho Exam General General: Yes no acute distress Neurologic: Yes alert and Yes oriented x3 Psychologic: Yes reasonable and appropriate Left Knee Skin/Wound: Yes CDI, No ecchymosis, No erythema and No swelling Knee ROM: Yes ROM-Extension -20 to 0 and Yes ROM-Flexion 0-140 (68) Examination: Yes med jt line tenderness, Yes Lat jt line tenderness and Yes Donavan's Test Stability: NML: Anterior Drawer, NML: Posterior Drawer, NML: Valgus 30 and NML: Varus 30 KNEE: mild synovial hypertrophy. painful medial donavan with no click. no crepitus with range of motion. positive apleys ,thessaly Supplemental Info 03/04/2023 x-ray left knee: Preserved joint space, very faint peripheral spurring Coding Level of Care Code Off vis,est,level 3 Diagnoses Internal derangement of knee M23.90 Mechanical pain of left knee M25.562 Assessment and Plan Assessment and Plan (1) Internal derangement of knee: (2) Mechanical pain of left knee: Status: Acute Orders: Orders Knee 4 or More Views Today M25.562 - Pain in left knee Lower Ext Joint Only (Routine) Today M23.90 - Unspecified internal derangement of unspecified knee Plan Educated the patient about the anatomy of the knee and etiology of her pain. Patient has severe painful mechanical symptoms that are causing her difficulties with stairs and other ADLs spoke with her about needing an MRI to evaluate for a medial meniscus tear. Follow up after MRI or sooner if pain, swelling, numbness or associated symptoms, or concerns develop. All questions answered. Patient in agreement of plan. 03/04/23 1020 <Electronically signed by Gen Prajapati DO> Date Gen Prajapati DO Cosigner Signature: Date (if applicable) CC: Zahraa Ivey [facility] Work Phone: Start: 02-26-2023 Screening mammography Start: 02-26-2023 End: 02-26-2023 Procedure Note: See Note; NOTES: [facility] Imaging Services [address] [place] [address] SCRN MAMM (CAD)W/STEFANIA BILAT MR#: [id number] Acct: [id number] Name: ONEAL ZABALA Rep #: [id number] : 1970 F 52 From: Farhad singh MD PCP: YENY Mosley Status: [facility] Study: SCRN MAMM (CAD)W/STEFANIA BILAT Date of Exam: 02/12 02/03 Exam# [id number] Ordering Dr: Zahraa Ivey METAL TECHNICIANNapoleon MAMMOGRAPHY - BILATERAL SCREENING REASON FOR EXAM: Female, 52 years old. Routine annual screening examination. PERTINENT HISTORY: Grandmother with breast cancer. TECHNIQUE: Digital bilateral breast stefania (3D mammographic acquisition) in the CC and MLO projections. 2-D mediolateral oblique (MLO) and craniocaudad (CC) views of both breasts were obtained. CAD: Full Field Digital Mammography with Computer Added Detection was performed. COMPARISON: Comparison is made with prior study of October 16, 2021 and April 23, 2020. FINDINGS: Breast Composition: There are scattered areas of fibroglandular density. There are no dominant masses or suspicious calcifications. No other significant abnormalities are identified. There has been no significant change since the prior study. BI/SCRN MAMM (CAD)W/STEFANIA BILAT IMPRESSION: Stable bilateral screening mammogram. Yearly follow-up mammogram recommended. (A) ASSESSMENT CATEGORY: BIRADS Category 1: Negative. A letter regarding these results will be sent to the patient by the facility within 30 days. Approximately 10% of breast cancers are not detected by mammography. A normal mammogram should not delay biopsy of a clinically suspicious abnormality. [id number] Electronically Signed: Farhad Lara MD at 14:51 EDT Reading Location ID and State: [facility] / [place] , Service support , CC: YENY Ivey Sr. Manager Marketing: Signed Zahraa Ivey [facility] Work Phone: Start: 09-03-2022 End: 09-03-2022 Procedure Note: See Note; NOTES: [facility] [address] [place] [address] Venous Duplex US - Kael Extrem 09/03/22 1418 MR#: [id number] Acct: [id number] Name: ONEAL ZABALA Rep #: [id number] : 1970 52 From: Joe Carpenter MD Attending Dr: Dr. Cheng Burrell DPM Status: R EG CLI Ordering Dr: Cheng Burrell DPM Date: 09/03/22 Location: [facility] Sex: F C Admitted: Reason For Study: PAIN RIGHT LEFT GSV is normal. GSV is normal. CFV is compressible, spontaneous, phasic, CFV is compressible, spontaneous, phasic, competent and demonstrates normal competent, and demonstrates normal augmentation. augmentation. FV is compressible, spontaneous, phasic, FV is compressible, spontaneous, phasic, competent and demonstrates normal competent and demonstrates normal augmentation. augmentation. POP V is compressible, spontaneous, phasic, POP V is compressible, spontaneous, phasic, competent and demonstrates normal competent and demonstrates normal augmentation. augmentation. T/P Trunk is compressible. T/P Trunk is compressible. PTV is compressible. PTV is compressible. RT PerV is compressible. LT PerV is compressible. Procedure This is a venous duplex using B-mode, color flow and spectral Doppler. Exam performed in department. The study was technically difficult. A preliminary report was called and/or faxed to Dr. Burrell @ [phone]. VL/Venous Duplex US - Kael Extrem Interpretation Summary Deep veins of the lower extremities are bilaterally patent and compressible segmentally. There is no evidence of deep vein thrombosis on either side. Valvular competence appears intact within the proximal deep venous systems bilaterally. The great saphenous veins appear bilaterally patent and compressible segmentally. Ordering Physician: Cheng Burrell Referring Physician: Zahraa Ivey Performed By: Myra Alvarez, KING, RVT 09/03/222309 Date Joe Carpenter MD CC: JOANNE Burrell; METAL TECHNICIAN-C Zahraa Ivey Date Dictated: 09/03/22 1418 Date Transcribed: 09/03/222309 Sr. Manager Marketing: Signed Zahraa Ivey [facility] Work Phone: Start: 08-29-2022 End: 08-29-2022 Procedure Note: See Note; NOTES: [facility] Medical Records Department [address] [place] [address] Operative Report 08/29/22 0937 MR#: [id number] Acct: [id number] Name: ONEAL ZABALA Rep #: [id number] : 1970 52 From: Cheng Burrell DPM PCP: YENY Mosley Status:[facility] Location: [place] [address] Problems Associated Problem List Diagnoses (1) Ankle impingement syndrome, right: (2) Primary osteoarthritis, right ankle and foot: (3) Right ankle instability: (4) Ingrowing nail: Report of Operation Date of Procedure: 08/29/22 Pre-Operative Diagnosis: 1. Right anterior ankle impingement in setting of osteoarthritis 2. Right lateral ankle instability 3. Ingrowing toenail left medial hallux Post-Operative Diagnosis: Same Surgery/Procedure Performed:: Ankle arthroscopy right ankle Lateral ankle stabilization right Left medial hallux matrixectomy Description of Surgical Findings:: Patient had chronic left lateral ankle instability with previous history of osteochondral grafting to her talar dome when she was 18 years old she has had continued pinching pain to her anterior ankle with multiple arthroscopic debridements and a lateral ankle instability issue which frequently cause her her to trip and fall and feels unstable when walking throughout everyday life. MRI demonstrated remote sprains of the ATFL CFL ligaments with thinning of the articular cartilage and anterior ankle impingement. Decision was made for arthroscopic debridement and lateral ankle stabilization. Surgeon: Cheng Burrell inspector tester sorter: None (zaria elizondo) Type of Anesthesia: General Special Medications: Preoperatively patient received a popliteal Specimen's removed: Note Drains: None Estimated Blood Loss (mL): Minimal Description of Procedure: Patient brought back the operating placed comfortably in supine position on the operating room table. Patient induced under general anesthesia. Preoperative patient received a right lower extremities popliteal block per anesthesia. All osseous prominences were offloaded prevent any compression neuropraxia's. Right lower extremity was position without any external rotation of the limb. Well-padded thigh tourniquet was applied. Right lower extremity was scrubbed prepped draped using typical aseptic manner. Right lower extremity was elevated exsanguinated tourniquet was inflated 300 mmHg total tourniquet time throughout the case was noted to be 72 minutes. Palpation of the anteromedial joint ankle joint just medial to the tibialis anterior was performed a stab incision was made with a #11 blade hemostats were used to deepen the incision down to the level of capsule capsule was penetrated with obturator and cannula fara scope was applied significant synovitis were noted the joint was insufflated with following saline at approximately 40 mmHg is noted to be significant chronic synovitis to the area 8-second portals made anterior lateral ankle joint avoiding the intermediate dorsal cutaneous nerve and tendon structures to that site. Synovitis was debrided for approximately 25 minutes improvement and anterior ankle joint impingement was noted floor with intraoperatively there is noted to be anterior articular cartilage thinning both on the talar and tibial components of the ankle joint. Incisions were flushed copious felix normal sterile saline and closed with 3-0 Prolene simple interrupted. Attention was taken to the lateral ankle which fluoroscopic imaging was used to assess the lateral ankle ligaments anterior drawer testing demonstrated significant stability the ankle as documented under fluoroscopic images. Lateral ankle incision was made in a curvilinear fashion over the distal tip of the fibula with a 15 blade this was deepened with blunt dissection down to the level of the extensor retinaculum and ATFL a full-thickness incision was made along this with the deep structures were protected by hemostats releasing the residual torn ATFL ligament as well as incompetent inferior extensor retinaculum. All neurovascular structures were identified and bluntly retracted and protected at this time. Talar dome anterior brace was placed anchor using manufactures guidelines and the anterior lateral talar dome. Using the guide. Next 2 fiber tacks were placed 1 cm apart along the inferior and just 1 cm superior along the distal tip of the fibula anterior surface. This performed using manufactures guidelines. These were passed through the ATFL ligament and through the residual periosteal flap and is attached to the fibula including the stump of the ATFL and inferior extensor retinaculum using a pants over vest technique. These were hand tied down and ankle stability was noted at this time Next the second anchor for the internal brace was placed in the fibula just superior here and in between the fiber tack placement this was placed using manufactures guidelines with the foot placed in a neutral position and the lateral ankle ligaments were noted to be reestablished with regards to ankle stability confirmed fluoroscopically. Should be noted the fiber tacks were secured with the foot placed in a dorsiflexed and everted position. Patient flushed with copious felix normal sterile saline. Tourniquet was let down. Subcutaneous deep closure simple interrupted buried 2-0 Vicryl skin closure performed with 3-0 Prolene horizontal mattress technique. Incision dressed with bacitracin Adaptic 4 x 4's Kerlix and a well-padded Soliman compression posterior splint. Attention was taken to the left foot which a medial hallux matrixectomy would be performed using a hallux block technique performed aseptically after the toe on the left side was prepped with Betadine paint 8 cc of quarter percent Marcaine plain were injected using standard hallux block technique. The medial and proximal nail folds were released as well as the nailbed was from the medial aspect of the nail plate using a spatula this was removed using hemostats site was curetted and then a matrixectomy was performed using electrocautery Bovie. Site was flushed copious felix normal saline stress with bacitracin 4 x 4's and Coban. Patient was transferred to PACU vital signs stable and vascular status intact all digits for further monitoring prior to discharge patient tolerated procedure and anesthesia well in apparent satisfactory condition should remain nonweightbearing for the next 2 weeks and progress to weightbearing in a cam boot patient will be followed up in 1 week at which time we will change her dressing. 08/29/22 8167 <Electronically signed by Cheng Burrell DPM> Cosigner Signature (if applicable): CC: JOANNE Burrell; METAL TECHNICIAN-C Zahraa Ivey Signed Zahraa Ivey [employer] [facility] Work Phone: Start: 08-29-2022 Procedure on toenail Start: 08-29-2022 Fluoroscopic guidance Start: 08-29-2022 Radiography of ankle Start: 08-29-2022 End: 08-29-2022 Procedure Note: See Note; NOTES: [facility] Imaging Services [address] [place] [address] Ankle min 3 Views MR#: [id number] Acct: [id number] Name: ONEAL ZABALA Rep #: [id number] : 1970 F 52 From: Shraddha La MD PCP: YENY Mosley Status: [facility] Study: Ankle min 3 Views Date of Exam: 08/29/22 Exam# [id number] Ordering Dr: Cheng Burrell DPM STUDY: X-RAY - RIGHT ANKLE REASON FOR EXAM: Female, 52 years old. ANKLE ARTHROSCOPY, LATERAL STABILIZATION TECHNIQUE: 4 view(s) of the ankle. No exposure time in minutes: Seconds 46 seconds. COMPARISON: None. FINDINGS: Reason fluoroscopic lateral views are provided. In the field of view there is visualized circumscribed calcification posterior to the ankle joint. On one view there is a visualized hand and the [id number]. RAD/Ankle min 3 Views IMPRESSION: Image interpretation only Visualized right ankle and lateral view on fluoroscopy during a procedure. Electronically Signed: Shraddha La MD at 16:18 EST Reading Location ID and State: [facility] / [place] Tel , Service support , CC: JOANNE Burrell; METAL TECHNICIAN-C Zahraa Ivey Sr. Manager Marketing: Signed Zahraa Ivey [facility] Work Phone: Start: 07-09-2022 INFLUENZA VACCINE QUADRIVALENT 6 MO - 64 YRS IM Stephy Perales MD Work Phone: Start: 10-16-2021 End: 10-21-2021 Comments: See Note; NOTES: [facility] Imaging Services [address] [place] [address] SCRN MAMM (CAD)W/STEFANIA BILAT MR#: [id number] Acct: [id number] Name: ONEAL ZABALA Rep #: [id number] : 1970 F 51 From: Farhad singh MD PCP: Ursula Gary METAL TECHNICIAN-C Status: [facility] Study: SCRN MAMM (CAD)W/STEFANIA BILAT Date of Exam: 11/05 Exam# [id number] Ordering Dr: Ursula Gary NP METAL TECHNICIAN-C MAMMOGRAPHY - BILATERAL SCREENING REASON FOR EXAM: Female, 51 years old. Routine annual screening examination. PERTINENT HISTORY: Grandmother with breast cancer. TECHNIQUE: Digital bilateral breast stefania (3D mammographic acquisition) in the CC and MLO projections. 2-D mediolateral oblique (MLO) and craniocaudad (CC) views of both breasts were obtained. CAD: Full Field Digital Mammography with Computer Added Detection was performed. COMPARISON: Comparison is made with prior study dated 04/23/2020 and 01/25/2019. FINDINGS: Breast Composition: The breasts are almost entirely fatty. There are no dominant masses or suspicious calcifications. No other significant abnormalities are identified. There has been no significant change since the prior study. BI/SCRN MAMM (CAD)W/STEFANIA BILAT IMPRESSION: Stable bilateral screening mammogram. Yearly follow-up mammogram recommended. (A) ASSESSMENT CATEGORY: BIRADS Category 1: Negative. A letter regarding these results will be sent to the patient by the facility within 30 days. Approximately 10% of breast cancers are not detected by mammography. A normal mammogram should not delay biopsy of a clinically suspicious abnormality. [id number] Electronically Signed: Farhad Lara MD at 8:27 EST Reading Location ID and State: [address] [place] [address] , Service support , CC: METAL TECHNICIAN-Ji Gary Sr. Manager Marketing: Signed Ursula Gary Work Phone: Start: 07-24-2021 End: 07-24-2021 Comments: See Note; NOTES: [facility] [address] [place] [address] Knee 4 or More Views MR#: [id number] Acct: [id number] Name: ONEAL ZABALA Rep #: [id number] : 1970 F 51 From: Cristian Rivera MD PCP: YENY Pitts Status: DEP AMB Study: Knee 4 or More Views Date of Exam: 07/24/21 Exam# [id number] Ordering Dr: Danielle Monge History: Pain Left knee 4 views: Findings: No acute fracture, subluxation or joint effusion. No joint space narrowing or soft tissue abnormality. IMPRESSION: No acute abnormality. at 1525 Reported and signed by: Cristian Rivera MD Electronically Signed: Cristian Rivera MD at 15:24 EST Tel , Service support , RAD/Knee 4 or More Views CC: YENY Gary; KATT Monge Sr. Manager Marketing: Signed Ursula Gary CNP Work Phone: Start: 07-24-2021 End: 08-02-2021 Comments: See Note; NOTES: [facility] [address] [place] [address] OFFICE VISIT Date of Service: 07/24/21 MR#: [id number] Acct: [id number] Name: ONEAL ZABALA Rep #: [id number] : 1970 Provider: KATT Monge Age/Sex: 51/F Location: [facility] [facility] Status: Signed Intake Intake Visit Reasons: LEFT KNEE Allergies peanut Allergy (Severe, Verified 07/24/21 09:24) swelling, vomiting wheat Allergy (Severe, Verified 07/24/21 09:21) swelling, vomiting grass pollen Allergy (Intermediate, Verified 07/24/21 09:26) breathing and congestion mold Allergy (Intermediate, Verified 07/24/21 09:28) breathing and congestion ragweed pollen Allergy (Intermediate, Verified 07/24/21 09:27) breathing and congestion tree and shrub pollen Allergy (Intermediate, Verified 07/24/21 09:25) breathing and congestion Penicillins Allergy (Unknown, Verified 07/24/21 09:19) unknown pet dander Allergy (Intermediate, Uncoded 07/24/21 09:26) breathing and congestion white potato Adverse Reaction (Severe, Uncoded 07/24/21 09:23) swelling, vomiting Medications levocetirizine 5 mg tablet tablet PO 07/24/21 [History Confirmed 07/24/21] meloxicam 15 mg tablet 15 mg PO DAILY #30 tab 07/24/21 [Rx Confirmed 07/24/21] montelukast 10 mg tablet tablet PO 07/24/21 [History Confirmed 07/24/21] multivitamin with minerals-folic acid 200 mcg chewable tablet tab PO 07/24/21 [History Confirmed 07/24/21] [facility] Medical History (Updated 07/24/21 @ 11:29 by Tory Munoz) Asthma Surgical History (Updated 07/24/21 @ 11:30 by Tory Munoz) History of ankle surgery Family History (Updated 07/24/21 @ 11:32 by Tory Munoz) Father Hypertension Sister Hypertension Brother Hypertension Mother Diabetes CAD (coronary artery disease) Myocardial infarction Social History (Updated 07/24/21 @ 11:33 by Tory Munoz) household members: spouse and children Smoking Status: Never smoker alcohol intake: never substance use type: does not use what type of physical activity do you participate in: walking How many days of moderate to strenuous exercise, like a brisk walk, did you do in the last 7 days: 4 do you feel safe at home: Yes HPI LEFT KNEE Details: Parts of this documentation were recorded by a scribe, this documentation accurately reflects the service provided and the decisions made by me, KATT Easley 07/24/21 0853. ONEAL ZABALA is a 51 year old F here today for left knee pain. She states that on 07/19/21 she had a ground level fall directly onto her left knee. She has had some swelling, bruising and pain since. She states the pain is anterior and medial and lateral sided. Resting her pain is a 0/10 and it can be 10/10 with certain movements. However, she states since the initial injury she is getting better. Denies radiation of pain. Denies previous injuries or surgeries to her left lower extremity. Aggravating factors include, stretching while sleeping, car rides, crouching and twisting. She has tried ice, Advil and careful positioning of her leg to avoid pain. Denies locking and instability. ROS Const Denies chills and Denies fever(s) Card Denies dyspnea Resp Denies dyspnea GI Denies nausea and Denies vomiting Musc Reports abnormal gait (slower due to pain), Reports arthralgias, Reports back pain, Denies joint swelling, Reports limited range of motion, Denies muscle weakness, Denies numbness, Denies radiating pain into limb, Reports stiffness and Denies tingling Skin/Breast Denies rash Neuro Yes abnormal gait (slower due to pain), No numbness and No tingling Ortho Exam General General: Yes no acute distress Neurologic: Yes alert and Yes oriented x3 Psychologic: Yes reasonable and appropriate Left Knee Date of injury: 07/19/21 Skin/Wound: Yes ecchymosis (1.5 inch in diameter [place]iden below patella), No erythema and No swelling Contralateral Normal: Yes Homans Sign: No Knee ROM: Yes ROM-Extension -20 to 0 and Yes ROM-Flexion 0-140 (About 95 degrees limited by pain) Examination: No med jt line tenderness, No Lat jt line tenderness, Yes Crepitus, Yes Pain with flexion, No Donavan's Test and No TTP Pes Anserine Stability: NML: Valgus 0, NML: Valgus 30, NML: Varus 0 and NML: Varus 30 Popliteal Adenopathy: No KNEE: Upon inspection of the left knee there is no evident erythema, swelling or open wounds. No signs of infection. There is a 1.5 inch in diameter [place]iden of erythema below patella. She has full extension without pain, but has only 95 degrees of flexion due to pain and not wanting to flare her pain. She is TTP over lateral and medial collateral ligaments but has no laxity. Negative Donavan. Intact sensation to light touch throughout lower left extremity. Palpable pedal pulses. No pitting edema. Coding Level of Care Code Off vis,new,level 3 Diagnoses Fall W19.XXXA Left knee injury S89.92XA Left knee pain M25.562 Contusion of left knee S80.02XA Assessment and Plan Assessment and Plan (1) Fall: Plan - KATT Lemus: Patient presents today due to left knee pain. She states she fell on 07/19/21 directly onto her left knee. She states the she originally had swelling, but that has resolved. She has been getting better since the initial injury, but is still having pains with certain movements. Discussed on physical exam there is no concern for ligamentous or meniscal pathology. X-rays of her left knee reveal no obvious fractures, dislocations, or lucencies. Educated her that at this time conservative measure are appropriate. Discussed she should rest, ice/heat, elevate and take NSAIDs as needed. She was sent in a prescription for meloxicam. She was also given a brace for support. She had this on in the office and immediately felt a lot better and more supported. Discussed that she should follow up in 3 weeks or sooner if pain, swelling, numbness or associated symptoms, or concerns develop. All questions answered. Patient in agreement of plan. (2) Left knee injury: (3) Left knee pain: Orders: Orders: Knee 4 or More Views 07/24/21 Medications: New: meloxicam Do not take in conjunction with other NSAIDs. 15 mg PO DAILY 30 tabs 0RF Pain (4) Contusion of left knee: 07/24/21 1413 <Electronically signed by Danielle BOLIVAR> Date Danielle BOLIVAR 08/02/21 1106<Electronically signed by Gen Prajapati DO> Cosigner Signature: Date (if applicable) Gen Prajapati DO CC: Ursula Gary CADD OPERATOR Work Phone: Start: 04-23-2020 End: 04-23-2020 SCREEN MAMM (CAD) W/STEFANIA BILAT Comments: See Note; NOTES: [facility] Imaging Services [address] [place] [address] SCREEN MAMM (CAD) W/STEFANIA BILAT MR#: [id number] Acct: [id number] Name: ONEAL ZABALA Rep #: [id number] : 1970 F 50 From: Farhad singh MD PCP: YENY Pitts Status: [facility] Study: SCREEN MAMM (CAD) W/STEFANIA BILAT Date of Exam: 0 04/23/20 Exam# [id number] Ordering Dr: Ursula Gary MAMMOGRAPHY - BILATERAL SCREENING REASON FOR EXAM: Female, 50 years old. Routine annual screening examination. PERTINENT HISTORY: Grandmother with breast cancer. TECHNIQUE: Digital bilateral breast stefania (3D mammographic acquisition) in the CC and MLO projections. 2-D mediolateral oblique (MLO) and craniocaudad (CC) views of both breasts were obtained. CAD: Full Field Digital Mammography with Computer Added Detection was performed. COMPARISON: Comparison is made with prior study dated 01/25/2019 and 01/01/2018. FINDINGS: Breast Composition: There are scattered areas of fibroglandular density. There are no dominant masses or suspicious calcifications. Stable small benign appearing bilateral axillary lymph nodes. No other significant abnormalities are identified. There has been no significant change since the prior study. BI/SCREEN MAMM (CAD) W/STEFANIA BILAT IMPRESSION: Stable bilateral screening mammogram. Yearly follow-up mammogram recommended. (A) ASSESSMENT CATEGORY: BIRADS Category 2: Benign. A letter regarding these results will be sent to the patient by the facility within 30 days. Approximately 10% of breast cancers are not detected by mammography. A normal mammogram should not delay biopsy of a clinically suspicious abnormality. [id number] Electronically Signed: Farhad Lara, at 13:03 EDT , Service support , CC: YENY Gary Sr. Manager Marketing: Signed Ursula Gary Work Phone: Start: 06-27-2019 End: 06-27-2019 Chest PA and Lateral Comments: See Note; NOTES: [facility] Imaging Services [address] [place] [address] Chest PA and Lateral MR#: [id number] Acct: [id number] Name: ONEAL ZABALA Rep #: [id number] : 1970 F 49 From: Farhad Lara MD PCP: YENY Pitts Status: [facility] CLI Study: Chest PA and Lateral Date of Exam: 06/27/19 Exam# [id number] Ordering Dr: Chel Andrews STUDY: X-RAY CHEST REASON FOR EXAM: Female, 49 years old. Cough. History of asthma. TECHNIQUE: PA and lateral views of the chest. COMPARISON: Comparison is made with prior study July 09, 2015. FINDINGS: There now is evidence of infiltration in the right lower lobe. Follow-up is recommended. There is no demonstrated pleural abnormality. Normal size heart. Normal mediastinum and vasquez. Normal visualized pulmonary arteries. Normal visualized aortic arch and descending thoracic aorta. Normal visualized thoracic spine. Normal visualized ribs, clavicles, and shoulders. There is no demonstrated abnormality of the visualized soft tissue structures of the upper abdomen. RAD/Chest PA and Lateral IMPRESSION: Right lower lobe infiltration. Follow-up is recommended. Electronically Signed: Farhad Lara, at 13:38 EDT , Service support , CC: YENY Andrews; YENY Gary Sr. Manager Marketing: Signed Chel Andrews Start: 01-25-2019 End: 01-26-2019 SCREENING MAMM (CAD), BILAT Comments: See Note; NOTES: [facility] Imaging Services [address] [place] [address] SCREENING MAMM (CAD), BILAT MR#: [id number] Acct: [id number] Name: ONEAL ZABALA Rep #: [id number] : 1970 F 48 From: Farhad Lara MD PCP: Ursula Gary NP Status: [facility] Study: SCREENING MAMM (CAD), BILAT Date of Exam: 01/25/19 Exam# [id number] Ordering Dr: Ursula Gary [employer] TECH[employer]IC[place] MAMMOGRAPHY - BILATERAL SCREENING REASON FOR EXAM: Female, 48 years old. Routine annual screening examination. PERTINENT HISTORY: Grandmother with breast cancer. TECHNIQUE: Digital bilateral breast stefania (3D mammographic acquisition) in the CC and MLO projections. 2-D mediolateral oblique (MLO) and craniocaudad (CC) views of both breasts were obtained. CAD: Full Field Digital Mammography with Computer Added Detection was performed. COMPARISON: Comparison is made with prior examination dated January 01, 2018 and August 20, 2016. FINDINGS: Breast Composition: There are scattered areas of fibroglandular density. There are no dominant masses or suspicious calcifications. No other significant abnormalities are identified. There has been no significant change since the prior study. BI/SCREENING MAMM (CAD), BILAT IMPRESSION: Stable bilateral screening mammogram. Yearly follow-up mammogram recommended. (A) ASSESSMENT CATEGORY: BIRADS Category 1: Negative. A letter regarding these results will be sent to the patient by the facility within 30 days. Approximately 10% of breast cancers are not detected by mammography. A normal mammogram should not delay biopsy of a clinically suspicious abnormality. [id number] Electronically Signed: Farhad Lara, at 8:06 EDT , Service support , CC: AVELINA Gary Sr. Manager Marketing: Signed Ursula Gary Work Phone: Start: 01-01-2018 End: 01-01-2018 SCREENING MAMM (CAD), BILAT Comments: See Note; NOTES: [facility] Imaging Services [address] [place] [address] SCREENING MAMM (CAD), BILAT MR#: [id number] Acct: [id number] Name: ONEAL ZABALA Rep #: [id number] : 1970 F 47 From: Farhad Lara MD PCP: Ursula Gary NP Status: REG CLI Study: SCREENING MAMM (CAD), BILAT Date of Exam: 01/01/18 Exam# [id number] Ordering Dr: Ursula Gary MAMMOGRAPHY - BILATERAL SCREENING REASON FOR EXAM: Female, 47 years old. Routine annual screening examination. PERTINENT HISTORY: Non-contributory. TECHNIQUE: Digital bilateral breast stefania (3D mammographic acquisition) in the CC and MLO projections. 2-D mediolateral oblique (MLO) and craniocaudad (CC) views of both breasts were obtained. CAD: Full Field Digital Mammography with Computer Added Detection was performed. COMPARISON: Comparison is made with prior study dated August 20, 2016. FINDINGS: Breast Composition: There are scattered areas of fibroglandular density. There are no dominant masses or suspicious calcifications. No other significant abnormalities are identified. There has been no significant change since the prior study. BI/SCREENING MAMM (CAD), BILAT IMPRESSION: Stable bilateral screening mammogram. Yearly follow-up mammogram recommended. (A) ASSESSMENT CATEGORY: BIRADS Category 1: Negative. A letter regarding these results will be sent to the patient by the facility within 30 days. Approximately 10% of breast cancers are not detected by mammography. A normal mammogram should not delay biopsy of a clinically suspicious abnormality. [id number] Electronically Signed: Farhad Lara MD at 13:58 EDT Tel [phone], Service support , CC: Ursula Gary NP Sr. Manager Marketing: Signed Ursula Gary Work Phone: Start: 07-09-2017 End: 07-09-2017 Inital Evaluation (1) - PT Comments: See Note; NOTES: [facility] [address] [place] [address]. [address] [place], [place] [address] Fax REHABILITATION SERVICES INITIAL EVALUATION MR#: [id number] Acct: [id number] Name: SAGRARIOONEAL M Rep #: [id number] : 1970 47 From: Jamshid Wilson PT, ATC Referring DrChana: Toshia Santana DO Status: REG RCR Insurance: [facility] Patient's Visit Information ONEAL ZABALA is a 47 year old F referred to Physical Therapy by Toshia Santana with a diagnosis of LBP. Date of Evaluation: 07/09/17 Physical Therapist: Jamshid Wilson, PT, - Visit Plan Frequency: 2-3x /Week Duration: 4 Weeks Plan: postural edu, REIL, core stab ex's, nustep, and HEP - Subjective Subjective: Pt reports she bagan to notice 3 months ago that her L LE would get a tingling sensation that would radiate to the midshin region. Pt reports her pain kept getting worse and eventually turned into a burning sensation. Pt reports she began to favor that side, and now her LBP increased. Pt reports prolonged standing or walking will all increase her pain. 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 Pt reports she has had to miss work secondary to pain. Pt had xrays, nothing wrong with her alycia structure. No PMHx. 5/10 at rest, 10/10 at worst - Pain LBP and L LE pain Pain Intensity (Out of 10): 5 Pain Intensity Range: 10 - Objective Neuro: B LE sensation is WNL to light touch. B pat reflex= 1/3. Palpation: Sig muscle guarding in L/S throughout. MMT: L hip flex 4-/5. All other LE 5/5 throughout. L/S ROM: L/s ext ROM is moderately limited on this date. No other limitations. Repeated movements: RFIS peripheralized sx's into L LE. JEISON decreased LBP - Goals Goal 1:: Decrease LBP x 50% to aid with sleep Goal Time Frame: 4-6 Weeks Goal 2:: Increase L/S ext ROM x 1 grade to aid with IADL's Goal Time Frame: 4-6 Weeks Goal 3:: Decrease the F and I of L LE radiculopathy x 50% to aid with IADL's Goal Time Frame: 4-6 Weeks Goal 4:: I with HEP Goal Time Frame: 4-6 Weeks - Rehabilitation Potential Physical Therapy Diagnosis: Pt has LBP, decreased L/S ext ROM, and L LE radiculopathy secondary to a L/S disc derangement. Rehabilitation Potential: Good - Anticipated Interventions Patient/Client Instruction: Educate patient on: Condition, Plan of Care For the Purpose of:: To improve self management Therapeutic Exercise to Include: Body mechanics, Postural training, Active ROM, Dynamic Lumbar Stabilization, Raven Exercises For the Purpose of:: To decrease pain, To increase ROM, To improve muscle performance and motor function IF ES: Yes Cryotherapy (ice pack, ice massage): Yes For the Purpose of:: To decrease pain Thank you for the opportunity to evaluate your patient. For Medicare and Medicare HMO plans, please review the plan of care and approve it. It will need to be FAXED BACK to us at [phone] for Medicare purposes. Please let me know if there are questions or concerns regarding this plan of care. Physician Signature: Date: <Electronically signed by Jamshid Wilson PT, ATC> 07/09/17 1841 CC: Ursula Gary; Toshia Santana DO [facility] Signed For Medicare only, by signing this I certify the plan of care. __ Physicians Signature Date Ursula Heathergonzález Start: 07-03-2017 End: 07-03-2017 S-I Jts 3 or More Views Comments: See Note; NOTES: [facility] Imaging Services [address] [place] [address] S-I Jts 3 or More Views MR#: [id number] Acct: [id number] Name: ONEAL ZABALA Rep #: [id number] : 1970 F 47 From: Anurag Cunningham MD PCP: Ursula Gary Status: REG CLI Study: S-I Jts 3 or More Views Date of Exam: 07/03/17 Exam# [id number] Ordering Dr: Toshia Santana DO STUDY: X-RAY - SACRUM/COCCYX REASON FOR EXAM: Female, 47 years old. Left-sided lower back pain for 2 weeks. TECHNIQUE: 3 view(s) of the sacrum and coccyx were obtained. COMPARISON: None. FINDINGS: Normal bilateral sacroiliac joints. Normal visualized sacral ala and fused sacral bodies. Normal sacrococcygeal junction with a normal angulation. Normal coccygeal segments. There is an IUD in place. RAD/S-I Jts 3 or More Views IMPRESSION: Normal x-rays of the sacrum and coccyx. Electronically Signed: Anurag Cunningham MD at 15:27 EDT , Service support , CC: Ursula Gary; Toshia Santana DO Sr. Manager Marketing: Signed Toshia Santana Work Phone: Start: 07-03-2017 End: 07-03-2017 L/S Spine Min 4 Views Comments: See Note; NOTES: [facility] Imaging Services [address] [place] [address] L/S Spine Min 4 Views MR#: [id number] Acct: [id number] Name: ONEAL ZABALA Rep #: [id number] : 1970 F 47 From: Anurag Cunningham MD PCP: Ursula Gary Status: REG CLI Study: L/S Spine Min 4 Views Date of Exam: 07/03/17 Exam# [id number] Ordering Dr: Toshia Santana DO STUDY: X-RAY - LUMBAR SPINE REASON FOR EXAM: Female, 47 years old. Left-sided low back pain for 2 weeks. No known trauma. TECHNIQUE: 5 view(s) of the lumbar spine were obtained. COMPARISON: None FINDINGS: Normal lumbar lordosis. There is no substantial scoliosis. There is a normal alignment of the vertebrae. Normal vertebral bodies and endplates. There is minimal intervertebral disc space narrowing at L2-3 and L4-5. There is diffuse facet sclerosis. Incidentally noted is an IUD in the pelvis. RAD/L/S Spine Min 4 Views IMPRESSION: Mild lumbar spondylosis as described. Electronically Signed: Anurag Cunningham MD at 15:38 EDT , Service support , CC: Ursula Gary; Toshia Santana DO Sr. Manager Marketing: Signed Toshia Santana Work Phone: Start: 06-22-2017 End: 06-22-2017 Ketorolac Tromethamine 30 mg/ml Soln Jairon BOLIVAR Work Phone: Start: 06-22-2017 End: 06-22-2017 Therapeutic prophylactic/dx injection subq/im Jairon BOLIVAR Work Phone: Start: 08-20-2016 End: 08-21-2016 Bilat Scrn Digital AND CAD Comments: See Note; NOTES: [facility] Imaging Services [address] [place] [address] Verdana 4d Bilat Scrn Digital AND CAD MR#: [id number] Acct: [id number] Name: ONEAL ZABALA Rep #: [id number] : 1970 F 46 From: Farhad Lara MD PCP: Ursula Gary Status: REG CLI Study: Bilat Scrn Digital AND CAD Date of Exam: 08/20/16 Exam# [id number] Ordering Dr: Ursula Gary MAMMOGRAPHY - BILATERAL SCREENING REASON FOR EXAM: Female, 46 years old. Routine annual screening examination. PERTINENT HISTORY: Non-contributory. TECHNIQUE: Digital bilateral breast stfeania (3D mammographic acquisition) in the CC and MLO projections. 2-D mediolateral oblique (MLO) and craniocaudad (CC) views of both breasts were obtained. CAD: Full Field Digital Mammography with Computer Added Detection was performed. COMPARISON: Comparison is made with prior outside examination dated April 12, 2012. FINDINGS: Breast Composition: There are scattered areas of fibroglandular density. There are no dominant masses or suspicious calcifications. No other significant abnormalities are identified. There has been no significant change since the prior study. HPBI/Bilat Scrn Digital AND CAD IMPRESSION: Stable bilateral screening mammogram. Yearly follow-up mammogram recommended. (A) ASSESSMENT CATEGORY: BIRADS Category 1: Negative. A letter regarding these results will be sent to the patient by the facility within 30 days. Approximately 10% of breast cancers are not detected by mammography. A normal mammogram should not delay biopsy of a clinically suspicious abnormality. [id number] Electronically Signed: Farhad Lara MD at 7:46 EST Tel [phone], Service support [phone], CC: Ursula Gary Sr. Manager Marketing: Signed Ursula Gary Work Phone: Start: 07-09-2015 End: 07-10-2015 Chest PA and Lateral Comments: See Note; NOTES: [facility] Imaging Services [address] [place] [address] Verdaramona 4d Chest PA and Lateral MR#: [id number] Acct: [id number] Name: ONEAL ZABALA Rep #: [id number] : 1970 F 45 From: Edgar Rust DO PCP: Bonezzi MD,Jignesh Status: REG CLI Study: Chest PA and Lateral Date of Exam: 07/09/15 Exam# [id number] Ordering Dr: Mahesh Christianson MD STUDY: X-RAY CHEST REASON FOR EXAM: Female, 45 years old. Chest tightness, dyspnea TECHNIQUE: Frontal and lateral views COMPARISON: November 23, 2012 FINDINGS: The lungs are clear and expanded. There is no demonstrated pleural abnormality. Normal size heart. Normal mediastinum and vasquez. Normal visualized pulmonary arteries. Normal visualized aortic arch and descending thoracic aorta. Minimal scoliosis of the thoracic spine. Normal visualized ribs, clavicles, and shoulders. There is no demonstrated abnormality of the visualized soft tissue structures of the upper abdomen. IMPRESSION: Normal x-ray examination of the chest. Electronically Signed: Edgar Rust DO at 23:58 EDT Tel [phone], Service support [phone], RAD/Chest PA and Lateral IMPRESSION: Normal x-ray examination of the chest. Electronically Signed: Edgar Rust DO at 23:58 EDT Tel [phone], Service support [phone], CC: Jignesh Gibson MD; Mahesh Christianson MD Sr. Manager Marketing: Signed Ursula Gary Start: 09-16-2012 End: 09-16-2012 Follow Up Appt Other Anthony Panchal MD Start: 04-12-2012 Mammography Stephy Perales MD Work Phone: Start: 02-10-2012 Lipid 1996 panel - Serum or Plasma Toshia Huston DO Work Phone: Investigation of transfusion reaction Microbial culture, routine [facility] Zahraa Ivey CADD OPERATOR Work Phone: [facility] Plan of Treatment Date Care Activity Detail Author Start: 02-28-2030 Screening for malignant neoplasm of cervix Cervical Cancer Screening [facility] Start: 07-09-2027 Screening for malignant neoplasm of cervix [facility] Start: 03-02-2026 End: 03-02-2026 Patient encounter procedure 03/02/2026 1:40 PM EDT Office Visit OB/Gynecology [address] [place], [place] [id number] Stephy Perales MD [address] [place], [place] [id number] Annual OB/Gynecology Comment on above: Annual Start: 08-16-2025 End: 08-16-2025 [employer] Work Phone: Start: 08-04-2025 End: 08-04-2025 [employer] Work Phone: Start: 08-01-2025 End: 08-01-2025 Patient encounter procedure 08/01/2025 9:15 AM EST Office Visit Vascular Surgery [address] [place], [place] [id number] Toshia Huston, DO [address] [place] [address] 6 Month follow up Vascular Surgery Comment on above: 6 Month follow up Start: 06-28-2025 End: 06-28-2025 [employer] Work Phone: Start: 06-28-2025 EMG/NCT right upper extremity CCOC - Aranda Work Phone: Start: 05-15-2025 Influenza vaccination [facility] Start: 02-28-2025 End: 02-28-2025 Patient encounter procedure 02/28/2025 2:00 PM EDT Office Visit OB/Gynecology [address] [place], [place] [id number] Stephy Perales MD [address] [place], [place] [id number] annual-also requesting IUD removal OB/Gynecology Comment on above: annual-also requesting IUD removal Start: 01-03-2025 End: 01-03-2025 Patient encounter procedure 01/03/2025 9:15 AM EDT Office Visit Vascular Surgery [address] [place] [address] Toshia Huston, DO [address] [place], [place] [id number] 6 month Vascular Surgery Comment on above: 6 month Start: 07-05-2024 End: 07-05-2024 Patient encounter procedure 07/05/2024 9:30 AM EDT Office Visit Vascular Surgery [address] [place] [address] Toshia Huston, DO [address] [place], [place] [id number] 3 month Vascular Surgery Comment on above: 3 month Start: 05-15-2024 Covid-19 Vaccine ( season) Covid-19 Vaccine () [facility] Start: 05-15-2024 Influenza vaccination Influenza Vaccine (#1) [facility] Start: 03-15-2024 End: 03-15-2024 Patient encounter procedure 03/15/2024 10:30 AM EDT Office Visit Vascular Surgery [address] [place] [address] Toshia Huston, DO [address] [place], [place] [id number] 2 wk follow up Vascular Surgery Comment on above: 2 wk follow up Start: 02-26-2024 End: 02-26-2024 Patient encounter procedure Vasculary Surgery Comment on above: ONE WEEK EVLT SCAN one week evlt scan, fredy Quan Start: 02-19-2024 End: 02-19-2024 Patient encounter procedure Vascular Surgery Comment on above: ONE WEEK EVLT SCAN RIGHT EVLT Start: 09-14-2023 Behavioral Health Screening Behavioral Health Screening [facility] Start: 09-14-2023 Depression Assessment Depression Assessment [facility] Start: 06-09-2023 Dehydroepiandrosterone-monet lfate [facility] Work Phone: Start: 06-09-2023 Gonadotropin follicle stimulating hormone [facility]; [facility] Work Phone: Start: 06-09-2023 Assay of prolactin [facility]; [facility] Work Phone: Start: 06-09-2023 Assay of thyroid stimulating hormone tsh [facility]; [facility] Work Phone: Start: 05-15-2023 Covid-19 Vaccine () Covid-19 Vaccine () [facility] Start: 05-04-2023 Lipid panel [facility]; [facility] Work Phone: Start: 05-04-2023 Patient Education [facility]; [facility] Work Phone: Start: 05-04-2023 Procedure Education [facility]; [facility] Work Phone: Start: 12-24-2022 Procedure Education [facility]; [facility] Work Phone: Start: 12-24-2022 Provider Instructions for Treatment [facility]; [facility] Work Phone: Start: 12-17-2022 Procedure Education [facility]; [facility] Work Phone: Start: 12-17-2022 Provider Instructions for Treatment [facility]; [facility] Work Phone: Start: 11-03-2022 Assay of parathormone [facility]; [facility] Work Phone: Start: 11-03-2022 Hemoglobin glycosylated a1c [facility]; [facility] Work Phone: Start: 11-03-2022 Lipid panel [facility]; [facility] Work Phone: Start: 11-03-2022 Procedure Education [facility]; [facility] Work Phone: Start: 11-03-2022 Provider Instructions for Treatment [facility]; [facility] Work Phone: Start: 08-29-2022 Anes open proc bones lower leg/ankle/foot nos ANESTH LOWER LEG BONE SURG [facility] Start: 08-29-2022 Hallux rigidus w/cheilectomy 1st mp jt w/o implt CORRJ HALUX RIGDUS W/O IMPLT [facility] Start: 08-29-2022 Unlisted procedure arthroscopy UNLISTED PX ARTHROSCOPY [facility] Start: 08-29-2022 Patient discharge [facility] Start: 08-29-2022 Radiography of ankle Ankle min [address] [facility] Work Phone: Start: 08-29-2022 XR Ankle GE [address] [facility] Work Phone: Start: 08-19-2022 Procedure Education [facility]; [facility] Work Phone: Start: 08-19-2022 Urnls dip stick/tablet rgnt non-auto w/o micrscp [facility]; [facility] Work Phone: Start: 05-01-2022 Hemoglobin glycosylated a1c [facility]; [facility] Work Phone: Start: 05-01-2022 Assay of parathormone [facility]; [facility] Work Phone: Start: 05-01-2022 Lipid panel [facility]; [facility] Work Phone: Start: 04-30-2022 Procedure Education [facility]; [facility] Work Phone: Start: 04-30-2022 Provider Instructions for Treatment [facility]; [facility] Work Phone: Start: 2022 Pneumococcal Vaccine: 50+ (1 of 1 - PCV) Pneumococcal Vaccine: 50+ (1 of 1 - PCV) [facility] Start: 2022 SHINGRIX VACCINE (1 of 2) SHINGRIX VACCINE (1 of 2) [facility] Start: 09-14-2021 DEPRESSION ASSESSMENT DEPRESSION ASSESSMENT [facility] Start: 09-11-2021 COVID-19 VACCINE (4 - Booster for Pfizer series) COVID-19 VACCINE (4 - Booster for Pfizer series) [facility] Start: 07-15-2021 Procedure Education [facility]; [facility] Work Phone: Start: 07-15-2021 Provider Instructions for Treatment [facility]; [facility] Work Phone: Start: 08-20-2020 TSH Qn TSH (68186) [facility]; [facility] Work Phone: Start: 08-20-2020 Blood count complete auto&auto difrntl wbc CBC, Platelets & Auto Diff (04785) [facility]; [facility] Work Phone: Start: 08-20-2020 Lipid panel Lipid Panel (33802) [facility]; [facility] Work Phone: Start: 08-20-2020 Comprehensive metabolic panel Metabolic Panel, Comprehensive (15383) [facility]; [facility] Work Phone: Start: 08-20-2020 25 hydroxy includes fractions if performed CALCIFEDIOL (41245) [facility]; [facility] Work Phone: Start: 08-20-2020 Procedure Education [facility]; [facility] Work Phone: Start: 08-20-2020 Provider Instructions for Treatment [facility]; [facility] Work Phone: Start: 04-16-2020 Procedure Education [facility] Work Phone: Start: 04-16-2020 Provider Instructions for Treatment [facility] Work Phone: Start: 04-16-2020 25 hydroxy includes fractions if performed [facility] Work Phone: Comment on above: Aug 2020 Start: 04-16-2020 HbA1c (Bld) [Mass fraction] HGB A1C (95468) [facility] Work Phone: Comment on above: Aug 2020 Start: 04-16-2020 Hemoglobin glycosylated a1c [facility]; [facility] Work Phone: Start: 04-16-2020 Blood count complete auto&auto difrntl wbc [facility] Work Phone: Comment on above: Aug 2020 Start: 04-16-2020 Assay of thyroid stimulating hormone tsh [facility]; [facility] Work Phone: Start: 04-16-2020 TSH Qn TSH (65315) [facility] Work Phone: Comment on above: Aug 2020 Start: 04-16-2020 Comprehensive metabolic panel [facility] Work Phone: Comment on above: Aug 2020 Start: 04-16-2020 SARS-CoV-2 Antibody, IgG (26748) SARS-CoV-2 Antibody, IgG (88487) [facility] Work Phone: Start: 11-15-2019 Procedure Education [facility] Work Phone: Start: 11-15-2019 Provider Instructions for Treatment [facility] Work Phone: Start: 08-01-2019 Procedure Education [facility] Work Phone: Start: 08-01-2019 Provider Instructions for Treatment [facility] Work Phone: Start: 07-18-2019 HbA1c (Bld) [Mass fraction] HGB A1C (58263) [facility] Work Phone: Start: 07-18-2019 25 hydroxy includes fractions if performed CALCIFEDIOL (40521) [facility] Work Phone: Start: 07-18-2019 Procedure Education [facility] Work Phone: Start: 07-18-2019 Provider Instructions for Treatment [facility] Work Phone: Start: 06-27-2019 Procedure Education [facility] Work Phone: Start: 06-27-2019 Provider Instructions for Treatment [facility] Work Phone: Start: 04-27-2019 Procedure Education [facility] Work Phone: Start: 04-27-2019 Provider Instructions for Treatment [facility] Work Phone: Start: 04-27-2019 Comprehensive metabolic panel Metabolic Panel, Comprehensive (29511) [facility] Work Phone: Start: 04-27-2019 TSH Qn TSH (92814) [facility] Work Phone: Start: 04-27-2019 Blood count complete auto&auto difrntl wbc CBC, Platelets & Auto Diff (04854) [facility] Work Phone: Start: 04-18-2019 Hemoglobin A1c/Hemoglobin.total mass fraction (Bld) HGB A1C (83822) [facility] Work Phone: Start: 12-29-2018 Procedure Education [facility] Work Phone: Start: 12-29-2018 Provider Instructions for Treatment [facility] Work Phone: Start: 08-09-2018 Procedure Education [facility] Work Phone: Start: 08-09-2018 Provider Instructions for Treatment [facility] Work Phone: Start: 09-29-2017 Procedure Education [facility] Work Phone: Start: 09-29-2017 Provider Instructions for Treatment [facility] Work Phone: Start: 09-01-2017 Procedure Education [facility] Work Phone: Start: 09-01-2017 Provider Instructions for Treatment [facility] Work Phone: Start: 07-03-2017 Procedure Education [facility] Work Phone: Start: 06-22-2017 End: 06-22-2017 Appointment Appointment [facility] Work Phone: Start: 2017 COLOGUARD (FIT-DNA) COLOGUARD (FIT-DNA) [facility] Start: 2017 Colonoscopy COLONOSCOPY [facility] Start: 2017 COLORECTAL CANCER SCREENING COLORECTAL CANCER SCREENING [facility] Start: [address] COLONOGRAPHY [facility] Start: 2017 DIABETES SCREEN DIABETES SCREEN [facility] Start: 2017 Diabetes Screening Diabetes Screening [facility] Start: 2017 FECAL OCCULT BLOOD FECAL OCCULT BLOOD [facility] Start: 2017 Lipid panel Lipid Screening [facility] Start: 2017 LIPID SCREEN LIPID SCREEN [facility] Start: 2017 Screening for malignant neoplasm of colon [facility] Start: 2017 SIGMOIDOSCOPY SIGMOIDOSCOPY [facility] Start: 03-09-2017 Procedure Education [facility] Work Phone: Start: 02-09-2017 HPV TESTING HPV TESTING [facility] Start: 02-09-2017 PAP TESTING PAP TESTING [facility] Start: 11-19-2016 Procedure Education [facility] Work Phone: Start: 11-19-2016 Provider Instructions for Treatment [facility] Work Phone: Start: 07-21-2016 Procedure Education [facility] Work Phone: Start: 07-21-2016 Provider Instructions for Treatment [facility] Work Phone: Start: 02-01-2016 Procedure Education [facility] Work Phone: Start: 10-16-2015 Patient Education [facility] Work Phone: Start: 10-16-2015 Procedure Education [facility] Work Phone: Start: 07-16-2015 Procedure Education [facility] Work Phone: Start: 03-19-2015 Procedure Education [facility] Work Phone: Start: 01-22-2015 25 hydroxy includes fractions if performed [facility] Work Phone: Start: 01-22-2015 Patient Education [facility] Work Phone: Start: 01-22-2015 Procedure Education [facility] Work Phone: Start: 01-08-2015 Provider Instructions for Treatment [facility] Work Phone: Start: 01-08-2015 25 hydroxy includes fractions if performed [facility] Work Phone: Start: 01-01-2015 Provider Instructions for Treatment [facility] Work Phone: Start: 01-01-2015 Antibody solitario-real eb virus early antigen ea [facility] Work Phone: Start: 02-15-2014 Provider Instructions for Treatment [facility] Work Phone: Start: 02-15-2014 Cul bact xcpt urine blood/stool aerobic isol [facility] Work Phone: Start: 04-12-2013 Mammography MAMMOGRAM [facility] Start: 04-12-2013 Screening for malignant neoplasm of breast Mammogram Screening [facility] Start: 09-16-2012 End: 09-16-2012 Follow Up Appt Other Follow Up Appt Other [facility] Work Phone: Start: 06-18-2012 Patient Education [facility] Work Phone: Start: 06-18-2012 Provider Instructions for Treatment [facility] Work Phone: Start: 06-14-2012 Heterophile antibodies screen [facility] Work Phone: Start: 06-14-2012 Blood count manual cell count each [facility] Work Phone: Start: 06-14-2012 Comprehensive metabolic panel [facility] Work Phone: Start: 06-14-2012 Lipid panel [facility] Work Phone: Start: 11-07-2011 Potassium molar conc POTASSIUM SERUM (21600) [facility] Work Phone: Start: 11-07-2011 Potassium serum plasma/whole blood [facility] Work Phone: Start: 10-13-2011 Thromboplastin time prtl substit plasma frctj ea [facility] Work Phone: Start: 10-03-2011 Comprehensive metabolic panel [facility] Work Phone: Start: 10-03-2011 Blood count manual cell count each [facility] Work Phone: Start: 10-03-2011 Antinuclear antibodies tree [facility]; [facility] Work Phone: Start: 10-03-2011 Nuclear Ab IF titer (S) TREE (ANTINUCLEAR ANTIBODY) (91079) [facility] Work Phone: Start: 10-03-2011 Antistreptolysin o titer [facility] Work Phone: Start: 10-03-2011 Sedimentation rate rbc non-automated [facility] Work Phone: Start: 10-03-2011 Tb cell mediated antign respnse gamma interferon [facility] Work Phone: Start: 07-22-2011 Provider Instructions for Treatment [facility] Work Phone: Start: 05-01-2011 Provider Instructions for Treatment [facility] Work Phone: Start: 2011 Provider Instructions for Treatment [facility] Work Phone: Start: 04-07-2011 Provider Instructions for Treatment [facility] Work Phone: Start: 03-25-2011 Provider Instructions for Treatment [facility] Work Phone: Start: 03-25-2011 Myoglobin [facility]; [facility] Work Phone: Start: 03-25-2011 Myoglobin mass conc MYOGLOBIN (53091) [facility] Work Phone: Start: 03-25-2011 Creatine kinase mb fraction only [facility] Work Phone: Start: 03-25-2011 Fibrin dgradj products d-dimer quantitative [facility] Work Phone: Start: 03-25-2011 C-reactive protein [facility]; [facility] Work Phone: Start: 03-25-2011 CRP mass conc C-Reactive Protein (47938) [facility] Work Phone: Start: 12-17-2010 Basic metabolic panel calcium total [facility] Work Phone: Comment on above: 10 days Start: 07-08-2010 Blood count manual cell count each [facility] Work Phone: Start: 07-08-2010 Culture bacterial quanttative colony count urine [facility] Work Phone: Start: 07-08-2010 Provider Instructions for Treatment [facility] Work Phone: Start: 04-30-2010 Provider Instructions for Treatment [facility] Work Phone: Start: 04-30-2010 Culture bacterial quanttative colony count urine [facility] Work Phone: Start: 04-30-2010 Assay of thyroid stimulating hormone tsh [facility]; [facility] Work Phone: Start: 04-30-2010 Thyrotropin Qn TSH (70921) [facility] Work Phone: Start: 04-30-2010 Blood count manual cell count each [facility] Work Phone: Start: 04-30-2010 Comprehensive metabolic panel [facility] Work Phone: Start: 10-23-2008 Provider Instructions for Treatment [facility] Work Phone: Start: 10-23-2008 Culture bacterial quanttative colony count urine [facility] Work Phone: Start: 08-14-2008 Provider Instructions for Treatment [facility] Work Phone: Start: 08-14-2008 Cytp cerv/vag auto thin layer prep mnl screen [facility] Work Phone: Start: 01-31-2008 Provider Instructions for Treatment [facility] Work Phone: Start: 01-31-2008 Cul bact xcpt urine blood/stool aerobic isol [facility] Work Phone: Start: 1991 Hepatitis B Vaccine (1 of 3 - 19+ 3-dose series) Hepatitis B Vaccine (1 of 3 - 19+ 3-dose series) [facility] Start: 1991 Urine microalbumin profile [facility] Start: 1990 Anxiety Screening Anxiety Screening [facility] Start: 1990 Depression Screening Depression Screening [facility] Start: 1990 HEPATITIS C SCREENING HEPATITIS C SCREENING [facility] Start: 1990 Hepatitis C screening Hepatitis C Screening [facility] Start: 1990 HIV SCREENING HIV SCREENING [facility] Start: 1990 HIV screening HIV Screening [facility] Start: 1972 HEPATITIS B (1 of 3 - 3-dose series) HEPATITIS B (1 of 3 - 3-dose series) [facility] Start: 1972 Hepatitis B Vaccine (1 of 3 - 3-dose series) Hepatitis B Vaccine (1 of 3 - 3-dose series) [facility] End: 09-11-2023 PERLITA SCREENING W STEFANIA PERLITA SCREENING W STEFANIA Radiology Routine Encounter for screening mammogram for malignant neoplasm of breast 1 Occurrences starting 07/09/2022 until 09/11/[address] [facility] Work Phone: Comment on above: 1 Occurrences starting 07/09/2022 until 09/11/2023 PAP FLUID CERVICAL SCREENING PAP FLUID CERVICAL SCREENING Lab Routine Special screening examination for human papillomavirus (HPV) Screening for cervical cancer 07/09/2022 3:19 PM EDT [facility] Work Phone: PAP TEST PAP TEST Lab Rou sandra Encounter for IUD removal Encounter for gynecological examination (general) (routine) without abnormal findings Encounter for screening for human papillomavirus (HPV) Pap smear for cervical cancer screening Ordered: 02/28/[address] [facility] Work Phone: Comment on above: Ordered: 02/28/2025 Patient referral [facility] Work Phone: Removal intrauterine device iud REMOVE INTRAUTERINE DEVICE Procedures Routine Encounter for IUD removal Ordered: 02/27/[address] [facility] Work Phone: Comment on above: Ordered: 02/27/2025 End: 07-09-2023 Screening colonoscopy COLONOSCOPY SCREENING Endoscopy Routine Special screening for malignant neoplasms, colon 1 Occurrences starting 07/09/2022 until 07/09/[address] [facility] Work Phone: Comment on above: 1 Occurrences starting 07/09/2022 until 07/09/2023 End: 11-10-2024 US Vein - bilateral US VENOUS INCOMPETENCY [facility] V[facility] Lab Routine Symptomatic varicose veins of both lower extremities 1 Occurrences starting 11/10/2023 until 11/10/[address] [facility] Work Phone: Comment on above: 1 Occurrences starting 11/10/2023 until 11/10/2024 [facility] Work Phone: [facility] Work Phone: [facility] Work Phone: [facility] Work Phone: [facility] Work Phone: [facility] Work Phone: [facility] Work Phone: [facility] Work Phone: [facility] Work Phone: [facility] Work Phone: [facility] Work Phone: [facility] Work Phone: [facility] Work Phone: [facility] Work Phone: [facility] Work Phone: [facility] Work Phone: [facility] Work Phone: [facility] Work Phone: [facility] Work Phone: [facility] Work Phone: [facility] Work Phone: [facility] Work Phone: [facility] Work Phone: [facility] Work Phone: [facility] Work Phone: [facility] Work Phone: [facility] Work Phone: [facility] Work Phone: [facility] Work Phone: [facility]; [facility] Work Phone: [facility] Immunizations Immunization Date Immunization Notes Care Provider [facility] 07-24-2023 influenza virus vaccine, unspecified formulation Toshiaemily Abelgino SANTORO Work Phone: [facility] 07-09-2022 influenza, injectabl e, quadrivalent, contains preservative Stephy Perales MD Work Phone: [facility] 06-08-2018 influenza, injectabl e, quadrivalent, contains preservative Stephy Perales MD Work Phone: [facility] Work Phone: 09-15-2017 influenza, injectabl e, quadrivalent, contains preservative Stephy Perales MD Work Phone: [facility] 08-05-2013 influenza virus vaccine, unspecified formulation Stephy Perales MD Work Phone: [facility] 07-30-2012 influenza virus vaccine, unspecified formulation Stephy Perales MD Work Phone: [facility] 09-09-2011 influenza virus vaccine, unspecified formulation Stephy Perales MD Work Phone: [facility] 07-30-2010 influenza virus vaccine, unspecified formulation Stephy Perales MD Work Phone: [facility] Work Phone: Payers Date Payer Category Payer Self-pay [id number] 2019 Private Health Insurance MMO [employer] PPO [id number] 2019 Unknown 2014 [id number] 1972 [id number] Unknown [id number] Unknown [id number] Unknown [id number] Unknown [id number] Unknown [id number] Social History Date Type Detail Facility Start: 11-10-2023 End: 02-28-2025 Caffeine Use Never smoker [facility] Work Phone: Comment on above: rarely Full-time, [employer] , Lives with spouse Tobacco use: Never smoker. [facility] Work Phone: Never smoker. [facility] Work Phone: Start: 07-24-2021 End: 08-10-2023 Tobacco smoking status VAIS Unknown if ever smoked [facility] Start: 1970 Sex Assigned At Female [facility] Start: 08-08-2011 End: 06-28-2025 Tobacco smoking status VAIS Never smoked tobacco [facility] Work Phone: Start: 08-08-2011 Tobacco use and exposure Smokeless tobacco non-user [facility] Work Phone: Start: 07-09-2022 End: 02-28-2025 Alcohol intake Current non-drinker of alcohol (finding) [facility] Start: 1970 Sex Assigned At Not on file [facility] Start: 11-10-2023 End: 07-19-2025 Tobacco use panel [facility] Start: 08-15-2012 National Score (1-100), lower number is lower risk 67 [facility] Start: 12-12-2024 Sex Female (finding) [facility] NEGATED: Highlighted row [facility] Medical Equipment Procedure Code Equipment Code Equipment Origin al Text Equipment Identifier Dates Excision of ingrown toenail ([id number]) Tendon/ligament bone anchor, non-bioabsorbable [id number] FDA Start: 08-29-2022 Excision of ingrown toenail ([id number]) Tendon/ligament bone anchor, bioabsorbable [id number] FDA Start: 08-29-2022 Goals Date Patient Goal Desired Activity /State Personal health goal Mental Status Date Assessment Result Facility 06-28-2025 Cognitive Function house [employer] Work Phone: 08-29-2022 Cognitive function Voice/Name [facility] Work Phone: Clinical Notes 07-09-2022 to 03-06-2025 Result Encounter Note - Stephy Perales MD - 03/06/2025 2:35 PM EDTResult Encounter Note - Stephy Perales MD - 03/06/2025 2:35 PM EDTRussStephy randall MD - 02/28/2025 1:47 PM EDT Note Date & Type Note Facility 03-06-2025 Progress note Formatting of t his note might be different from the original. Send letter about normal pap if she does not have mychart. Stephy Perales MD [facility] 03-06-2025 Miscellaneous Notes Send letter about normal pap if she does not have mychart. Stephy Perales MD documented in this encounter [facility] 02-28-2025 Note HNO ID: [id number] Author: STEPHY PERALES MD Service: ? Author Type: Physician Type: Progress Notes Filed: 02/28/2025 14:37 Note Text: Oneal presents for removal of IUD due to expiration of IUD. UNIVERSAL PROTOCOL / SAFETY CHECKLIST Procedure to be Performed: IUD removal Sign In: A Moment of CARE was completed. Appropriate PPE (Personal Protective Equipment) worn by all providers involved with the procedure. Special equipment not required. Patient/Surrogate Stated/Verified: Patient name, Date of , Relevant allergies, and The intended procedure Time Out: Relevant labs, photos, and/or imaging studies have been reviewed. Intended patient and procedure match the source document(s) (e.g. consent, HANDP, associated studies [imaging, pathology]) are not applicable. Consent obtained and matches the intended procedure. Yes. Correct side/site is not applicable. Medications required for this procedure are not applicable. Fire risk assessed and is not applicable. Implants: are not applicable. Sign Out: Specimens are all correctly labeled and sent. All instruments, equipment, possible retained foreign bodies are accounted for. Yes. The post-procedure plan of care has been communicated to the patient or surrogate. PROCEDURE: Speculum placed in vagina, IUD string visualized and grasped with ring forceps. ASSESSMENT/PLAN: IUD removed without difficulty, intact, and patient tolerated procedure well. Contraception plans: none Stephy Perales MD Oneal is a 54 year old who presents for an annual gynecologic exam without complaints. Denies hot flashes. Had hormone levels drawn last year. No vaginal bleeding. Some wt gain. her goal is to get healthier this year/summer in preparation for daughter's wedding next year Postmenopausal: yes HRT use: No. 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 PAST MEDICAL HISTORY Diagnosis Date Asthma (HCC) IUD 01/2007 mirena Mitral prolapse SVT (supraventricular tachycardia) ([facility]) PAST SURGICAL HISTORY Procedure Laterality Date ARTHROSCOPY,ANKLE; W/ANKLE ARTHRODESIS EVLT,ENDOVENOUS LASER TRT Right 02/19/2024 [facility] EVLT,ENDOVENOUS LASER TRT Left 02/12/2024 [facility] FAMILY HISTORY Problem Relation Age of Onset Diabetes Mother Heart Mother Hypertension Father GI Father Gurd/ acid reflux Hypertension Sister Diabetes Sister Hypertension Brother Diabetes Brother SOCIAL HISTORY Social History Tobacco Use Smoking status: Never Smokeless tobacco: Never Vaping Use Vaping status: Never Used Substance Use Topics Alcohol use: No Drug use: No REVIEW OF SYSTEMS Abdomen: No abdominal pain, nausea, vomiting, diarrhea, or constipation. No bloating, early satiety, indigestion, or increased flatulence. Bladder: No dysuria, gross hematuria, urinary frequency, urinary urgency, or incontinence Breast: No breast lumps, nipple d/c, overlying skin changes, redness or skin retraction Allergies and current medication updated:Yes SENSITIVE EXAM: The sensitive examination was discussed with the Patient or Patient's Authorized Records Section Supervisor. As applicable, any other physician, advance practice provider, medical student, or other health professional student that will be observing or involved in the sensitive examination for educational or training purposes was discussed with the Patient or Authorized Records Section Supervisor. The Patient or Authorized Records Section Supervisor has agreed to proceed with the sensitive examination. (Sensitive examination includes inspection and/or palpation of the breasts, pelvis, prostate and anorectal regions). EXAM: BP 132/78 Ht 5' 3.5 (1.61m) Wt 249 lb (112.9kg) BMI 43.41 kg/(m2). GENERAL: pleasant, female in no apparent distress HEENT: Normocephalic, atraumatic, mucus membranes moist, and no lesions NECK: Supple, full range of motion, no adenopathy, and thyroid normal DERMATOLOGY: Normal, without lesions, non-icteric, and non-hirsute BREAST: soft, non-tender, symmetric, no dominant mass, normal nipple-areolar complex, no lymphadenopathy, and no nipple discharge CHEST: Normal inspiratory effort ABDOMEN: soft, non-tender, and no masses PELVIC: external genitalia normal, normal Bartholin's glands, urethra, Burnet's glands, no vulvar lesions, no cervical lesions, good vaginal support, physiologic discharge present, normal appearing perineal body and perianal region BIMANUAL: uterus normal size, shape and consistency, no adnexal masses, and non-tender RECTOVAGINAL: deferred. NEURO: alert and oriented x3,exam grossly non-focal EXTREMITIES: normal ASSESSMENT/PLAN: 1) Health maintenance: Pap done with HPV. Mammogram ordered desires IUD removal (more content not included)... [facility] 02-28-2025 History of Presen t illness Narrative Oneal presents for removal of IUD due to expiration of IUD. UNIVERSAL PROTOCOL / SAFETY CHECKLIST Procedure to be Performed: IUD removal Sign In: A Moment of CARE was completed. Appropriate PPE (Personal Protective Equipment) worn by all providers involved with the procedure. Special equipment not required. Patient/Surrogate Stated/Verified: Patient name, Date of , Relevant allergies, and The intended procedure Time Out: Relevant labs, photos, and/or imaging studies have been reviewed. Intended patient and procedure match the source document(s) (e.g. consent, H&P, associated studies [imaging, pathology]) are not applicable. Consent obtained and matches the intended procedure. Yes. Correct side/site is not applicable. Medications required for this procedure are not applicable. Fire risk assessed and is not applicable. Implants: are not applicable. Sign Out: Specimens are all correctly labeled and sent. All instruments, equipment, possible retained foreign bodies are accounted for. Yes. The post-procedure plan of care has been communicated to the patient or surrogate. PROCEDURE: Speculum placed in vagina, IUD string visualized and grasped with ring forceps. ASSESSMENT/PLAN: IUD removed without difficulty, intact, and patient tolerated procedure well. Contraception plans: none Stephy Perales MD Oneal is a 54 year old who presents for an annual gynecologic exam without complaints. Denies hot flashes. Had hormone levels drawn last year. No vaginal bleeding. Some wt gain. her goal is to get healthier this year/summer in preparation for daughter's wedding next year Postmenopausal: yes HRT use: No. 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 PAST MEDICAL HISTORY Diagnosis Date Asthma (HCC) IUD 01/2007 mirena Mitral prolapse SVT (supraventricular tachycardia) ([facility]) PAST SURGICAL HISTORY Procedure Laterality Date ARTHROSCOPY,ANKLE; W/ANKLE ARTHRODESIS EVLT,ENDOVENOUS LASER TRT Right 02/19/2024 [facility] EVLT,ENDOVENOUS LASER TRT Left 02/12/2024 [facility] FAMILY HISTORY Problem Relation Age of Onset Diabetes Mother Heart Mother Hypertension Father GI Father Gurd/ acid reflux Hypertension Sister Diabetes Sister Hypertension Brother Diabetes Brother SOCIAL HISTORY Social History Tobacco Use Smoking status: Never Smokeless tobacco: Never Vaping Use Vaping status: Never Used Substance Use Topics Alcohol use: No Drug use: No REVIEW OF SYSTEMS Abdomen: No abdominal pain, nausea, vomiting, diarrhea, or constipation. No bloating, early satiety, indigestion, or increased flatulence. Bladder: No dysuria, gross hematuria, urinary frequency, urinary urgency, or incontinence Breast: No breast lumps, nipple d/c, overlying skin changes, redness or skin retraction Allergies and current medication updated:Yes SENSITIVE EXAM: The sensitive examination was discussed with the Patient or Patient's Authorized Records Section Supervisor. As applicable, any other physician, advance practice provider, medical student, or other health professional student that will be observing or involved in the sensitive examination for educational or training purposes was discussed with the Patient or Authorized Records Section Supervisor. The Patient or Authorized Records Section Supervisor has agreed to proceed with the sensitive examination. (Sensitive examination includes inspection and/or palpation of the breasts, pelvis, prostate and anorectal regions). EXAM: BP 132/78 Ht 5' 3.5 (1.61m) Wt 249 lb (112.9kg) BMI 43.41 kg/(m^2). GENERAL: pleasant, female in no apparent distress HEENT: Normocephalic, atraumatic, mucus membranes moist, and no lesions NECK: Supple, full range of motion, no adenopathy, and thyroid normal DERMATOLOGY: Normal, without lesions, non-icteric, and non-hirsute BREAST: soft, non-tender, symmetric, no dominant mass, normal nipple-areolar complex, no lymphadenopathy, and no nipple discharge CHEST: Normal inspiratory effort ABDOMEN: soft, non-tender, and no masses PELVIC: external genitalia normal, normal Bartholin's glands, urethra, Burnet's glands, no vulvar lesions, no cervical lesions, good vaginal support, physiologic discharge present, normal appearing perineal body and perianal region BIMANUAL: uterus normal size, shape and consistency, no adnexal masses, and non-tender RECTOVAGINAL: deferred. NEURO: alert and oriented x3,exam grossly non-focal EXTREMITIES: normal ASSESSMENT/PLAN: 1) Health maintenance: Pap done with HPV. Mammogram ordered desires IUD removal 2) Follow up one year or sooner as needed encouraged wt management consult and we reivewed diet/exercise with her health goals Stephy Perales MD documented in this encounter [facility] 01-24-2025 Note HNO ID: [id number] Author: TOSHIA HUSTON, DO Service: ? Author Type: Physician Type: Progress Notes Filed: 01/24/2025 10:02 Note Text: [facility] DEPARTMENT OF VASCULAR SURGERY OUTPATIENT VISIT DATE January 24, 2025 OUTPATIENT VISIT TYPE ESTABLISHED SERVICE DATE: 01/24/2025 SERVICE TIME: 9:08 AM PRIMARY CARE PHYSICIAN: Jignesh Gibson MD HISTORY OF PRESENT ILLNESS: Ms. Zabala is a 54 year old female who presents today for a vascular surgery follow-up visit for secondary lymphedema and venous insufficiency. She is using her compression pumps and wearing compression as tolerated. Notice her leg pain is slightly improved however edema persists. Denies ulceration PAST MEDICAL HISTORY Diagnosis Date Asthma IUD 01/2007 mirena Mitral prolapse SVT (supraventricular tachycardia) (HCC) PAST SURGICAL HISTORY Procedure Laterality Date ARTHROSCOPY,ANKLE; W/ANKLE ARTHRODESIS EVLT,ENDOVENOUS LASER TRT Right 02/19/2024 [facility] EVLT,ENDOVENOUS LASER TRT Left 02/12/2024 [facility] SOCIAL HISTORY Social History Tobacco Use Smoking status: Never Smokeless tobacco: Never Substance Use Topics Alcohol use: No Drug use: No MEDICATIONS: metFORMIN (GLUCOPHAGE) 500 mg tablet Prasterone, DHEA, (DHEA) 25 mg cap loratadine (CLARITIN) 10 mg tablet Take 1 tablet by mouth every afternoon. fluticasone-vilanterol (BREO ELLIPTA) 200-25 mcg/dose inhaler Inhale 1 Inhalation as instructed once daily. benralizumab (FASENRA) 30 mg/mL injection Inject 1 mL subcutaneously every 4 weeks. levonorgestrel (MIRENA) 20 mcg/24 hr (5 years) IUD Inserted in office ergocalciferol, vitamin D2, (DRISDOL) 50,000 unit capsule montelukast (SINGULAIR) 10 mg tablet ALBUTEROL SULFATE (PROVENTIL INHALATION) Inhale as instructed. ALLERGIES: ALLERGIES Allergen Reactions Penicillins Unknown PHYSICAL EXAM: There were no vitals taken for this visit. Gen- no distress Ext- right medial calf hyperpigmentation, spider veins, bilateral lower extremity edema Diagnostic tests reviewed for today's visit: Most recent labs Most recent imaging IMPRESSION: Ms. Zabala is a 54 year old female with venous insufficiency, secondary lymphedema . PLAN and RECOMMENDATIONS: Continue compression, elevation and exercise New prescription for knee high compression provided Follow up in 6 months or sooner with any concerns SIGNATURE: Toshia Huston DO PATIENT NAME: Oneal Zabala DATE: January 24, 2025 TIME: 9:08 AM [facility] 01-24-2025 History of Presen t illness Narrative Images from the original note were not included. [facility] DEPARTMENT OF VASCULAR SURGERY OUTPATIENT VISIT DATE January 24, 2025 OUTPATIENT VISIT TYPE ESTABLISHED SERVICE DATE: 01/24/2025 SERVICE TIME: 9:08 AM PRIMARY CARE PHYSICIAN: Jignesh Gibson MD HISTORY OF PRESENT ILLNESS: Ms. Zabala is a 54 year old female who presents today for a vascular surgery follow-up visit for secondary lymphedema and venous insufficiency. She is using her compression pumps and wearing compression as tolerated. Notice her leg pain is slightly improved however edema persists. Denies ulceration PAST MEDICAL HISTORY Diagnosis Date Asthma IUD 01/2007 mirena Mitral prolapse SVT (supraventricular tachycardia) (HCC) PAST SURGICAL HISTORY Procedure Laterality Date ARTHROSCOPY,ANKLE; W/ANKLE ARTHRODESIS EVLT,ENDOVENOUS LASER TRT Right 02/19/2024 [facility] EVLT,ENDOVENOUS LASER TRT Left 02/12/2024 [facility] SOCIAL HISTORY Social History Tobacco Use Smoking status: Never Smokeless tobacco: Never Substance Use Topics Alcohol use: No Drug use: No MEDICATIONS: metFORMIN (GLUCOPHAGE) 500 mg tablet Prasterone, DHEA, (DHEA) 25 mg cap loratadine (CLARITIN) 10 mg tablet Take 1 tablet by mouth every afternoon. fluticasone-vilanterol (BREO ELLIPTA) 200-25 mcg/dose inhaler Inhale 1 Inhalation as instructed once daily. benralizumab (FASENRA) 30 mg/mL injection Inject 1 mL subcutaneously every 4 weeks. levonorgestrel (MIRENA) 20 mcg/24 hr (5 years) IUD Inserted in office ergocalciferol, vitamin D2, (DRISDOL) 50,000 unit capsule montelukast (SINGULAIR) 10 mg tablet ALBUTEROL SULFATE (PROVENTIL INHALATION) Inhale as instructed. ALLERGIES: ALLERGIES Allergen Reactions Penicillins Unknown PHYSICAL EXAM: There were no vitals taken for this visit. Gen- no distress Ext- right medial calf hyperpigmentation, spider veins, bilateral lower extremity edema Diagnostic tests reviewed for today's visit: Most recent labs Most recent imaging IMPRESSION: Ms. Zabala is a 54 year old female with venous insufficiency, secondary lymphedema . PLAN and RECOMMENDATIONS: Continue compression, elevation and exercise New prescription for knee high compression provided Follow up in 6 months or sooner with any concerns SIGNATURE: Toshia Huston DO PATIENT NAME: Oneal Zabala DATE: January 24, 2025 TIME: 9:08 AM documented in this encounter [facility] 08-25-2024 Telephone encounter Note Forms signed and faxed to [phone] Transmission completed [facility] 08-25-2024 Miscellaneous Notes Forms signed and faxed to [phone] Transmission completed Type of form: occupational therapy orders Form received via fax When form is completed, Fax form to [facility] Occupational Therapy Form has been forwarded to MICHAEL Auguste documented in this encounter [facility] 08-24-2024 Telephone encounter Note Type of form: occupational therapy orders Form received via fax When form is completed, Fax form to [facility] Occupational Therapy Form has been forwarded to MICHAEL Auguste [facility] 07-19-2024 Telephone encounter Note Forms signed and faxed to [facility] Occupational Therapy at [phone]. Transmission complete. Encounter closed. [facility] 07-19-2024 Miscellaneous Notes Forms signed and faxed to [facility] Occupational Therapy at [phone]. Transmission complete. Encounter closed. Type of form: Occupational therapy re-certification Form received via fax When form is completed, Fax form to [facility] Occupational Therapy at [phone] Form has been forwarded to MICHAEL Auguste documented in this encounter [facility] 07-18-2024 Telephone encounter Note Type of form: Occupational therapy re-certification Form received via fax When form is completed, Fax form to [facility] Occupational Therapy at [phone] Form has been forwarded to MICHAEL Auguste [facility] 07-05-2024 Note HNO ID: [id number] Author: TOSHIA HUSTON, DO Service: ? Author Type: Physician Type: Progress Notes Filed: 07/05/2024 10:28 Note Text: [facility] DEPARTMENT OF VASCULAR SURGERY OUTPATIENT VISIT DATE July 05, 2024 OUTPATIENT VISIT TYPE ESTABLISHED SERVICE DATE: 07/05/2024 SERVICE TIME: 10:10 AM PRIMARY CARE PHYSICIAN: Jignesh Gibson MD HISTORY OF PRESENT ILLNESS: Ms. Zabala is a 54 year old female who presents today for a vascular surgery follow-up visit for lymphedema and venous insufficiency. She has been going to lymphedema therapy and doing massage. She has not been able to get into the pool to for therapy due to scheduling. She is scheduled to get lymphedema pumps in upcoming weeks. She does wear compression routinely PAST MEDICAL HISTORY Diagnosis Date Asthma IUD 01/2007 mirena Mitral prolapse SVT (supraventricular tachycardia) (HCC) PAST SURGICAL HISTORY Procedure Laterality Date ARTHROSCOPY,ANKLE; W/ANKLE ARTHRODESIS EVLT,ENDOVENOUS LASER TRT Right 02/19/2024 [facility] EVLT,ENDOVENOUS LASER TRT Left 02/12/2024 [facility] SOCIAL HISTORY Social History Tobacco Use Smoking status: Never Smokeless tobacco: Never Substance Use Topics Alcohol use: No Drug use: No MEDICATIONS: Prasterone, DHEA, (DHEA) 25 mg cap loratadine (CLARITIN) 10 mg tablet Take 1 tablet by mouth every afternoon. fluticasone-vilanterol (BREO ELLIPTA) 200-25 mcg/dose inhaler Inhale 1 Inhalation as instructed once daily. benralizumab (FASENRA) 30 mg/mL injection Inject 1 mL subcutaneously every 4 weeks. levonorgestrel (MIRENA) 20 mcg/24 hr (5 years) IUD Inserted in office ergocalciferol, vitamin D2, (DRISDOL) 50,000 unit capsule montelukast (SINGULAIR) 10 mg tablet ALBUTEROL SULFATE (PROVENTIL INHALATION) Inhale as instructed. ALLERGIES: ALLERGIES Allergen Reactions Penicillins Unknown PHYSICAL EXAM: BP 104/70 (BP Site: Left Arm, BP Position: Sitting, BP Cuff Size: Extra Large Adult) Pulse 74 SpO2 97% Gen- no distress Ext- bilateral lower extremity edema, induration on right medial calf, no ulcerations or tissue loss IMPRESSION: Ms. Zabala is a 54 year old female venous insufficiency, secondary lymphedema . PLAN and RECOMMENDATIONS: Continue compression, elevation and exercise Continue massaging area of induration Follow up in 6 months or sooner SIGNATURE: Toshia Huston DO PATIENT NAME: Oneal Zabala DATE: July 05, 2024 TIME: 10:10 AM [facility] 07-05-2024 History of Presen t illness Narrative Images from the original note were not included. [facility] DEPARTMENT OF VASCULAR SURGERY OUTPATIENT VISIT DATE July 05, 2024 OUTPATIENT VISIT TYPE ESTABLISHED SERVICE DATE: 07/05/2024 SERVICE TIME: 10:10 AM PRIMARY CARE PHYSICIAN: Jignesh Gibson MD HISTORY OF PRESENT ILLNESS: Ms. Zabala is a 54 year old female who presents today for a vascular surgery follow-up visit for lymphedema and venous insufficiency. She has been going to lymphedema therapy and doing massage. She has not been able to get into the pool to for therapy due to scheduling. She is scheduled to get lymphedema pumps in upcoming weeks. She does wear compression routinely PAST MEDICAL HISTORY Diagnosis Date Asthma IUD 01/2007 mirena Mitral prolapse SVT (supraventricular tachycardia) (HCC) PAST SURGICAL HISTORY Procedure Laterality Date ARTHROSCOPY,ANKLE; W/ANKLE ARTHRODESIS EVLT,ENDOVENOUS LASER TRT Right 02/19/2024 [facility] EVLT,ENDOVENOUS LASER TRT Left 02/12/2024 [facility] SOCIAL HISTORY Social History Tobacco Use Smoking status: Never Smokeless tobacco: Never Substance Use Topics Alcohol use: No Drug use: No MEDICATIONS: Prasterone, DHEA, (DHEA) 25 mg cap loratadine (CLARITIN) 10 mg tablet Take 1 tablet by mouth every afternoon. fluticasone-vilanterol (BREO ELLIPTA) 200-25 mcg/dose inhaler Inhale 1 Inhalation as instructed once daily. benralizumab (FASENRA) 30 mg/mL injection Inject 1 mL subcutaneously every 4 weeks. levonorgestrel (MIRENA) 20 mcg/24 hr (5 years) IUD Inserted in office ergocalciferol, vitamin D2, (DRISDOL) 50,000 unit capsule montelukast (SINGULAIR) 10 mg tablet ALBUTEROL SULFATE (PROVENTIL INHALATION) Inhale as instructed. ALLERGIES: ALLERGIES Allergen Reactions Penicillins Unknown PHYSICAL EXAM: BP 104/70 (BP Site: Left Arm, BP Position: Sitting, BP Cuff Size: Extra Large Adult) Pulse 74 SpO2 97% Gen- no distress Ext- bilateral lower extremity edema, induration on right medial calf, no ulcerations or tissue loss IMPRESSION: Ms. Zabala is a 54 year old female venous insufficiency, secondary lymphedema . PLAN and RECOMMENDATIONS: Continue compression, elevation and exercise Continue massaging area of induration Follow up in 6 months or sooner SIGNATURE: Toshia Huston DO PATIENT NAME: Oneal Zabala DATE: July 05, 2024 TIME: 10:10 AM documented in this encounter [facility] 06-20-2024 Telephone encounter Note Forms signed and faxed to [employer] at [phone]. Transmission complete. Encounter closed. [facility] 06-20-2024 Miscellaneous Notes Forms signed and faxed to [employer] at [phone]. Transmission complete. Encounter closed. Type of form: prescription Form received via fax When form is completed, Fax form to [employer] Form has been forwarded to MICHAEL Auguste documented in this encounter [facility] 06-17-2024 Telephone encounter Note Type of form: prescription Form received via fax When form is completed, Fax form to [employer] Form has been forwarded to MICHAEL Auguste [facility] 04-25-2024 Telephone encounter Note Forms signed and faxed to [facility] at [phone]. Transmission complete. Encounter closed. MICHAEL Heller [facility] 04-25-2024 Miscellaneous Notes Forms signed and faxed to [facility] at [phone]. Transmission complete. Encounter closed. MICHAEL Heller Type of form: Lymphedema Therapy Form received via fax When form is completed, Fax form to [facility] Occupational Therapy at [phone] Form has been forwarded to MICHAEL Auguste documented in this encounter [facility] 04-15-2024 Telephone encounter Note Type of form: Lymphedema Therapy Form received via fax When form is completed, Fax form to [facility] Occupational Therapy at [phone] Form has been forwarded to MICHAEL Auguste [facility] 03-29-2024 Instructions Toshia Huston DO - 03/29/2024 11:16 AM EDT Sigvaris Sheer 20-30 mmHg [place] (online) documented in this encounter [facility] 03-29-2024 Note HNO ID: [id number] Author: TOSHIA HUSTON DO Service: ? Author Type: Physician Type: Progress Notes Filed: 04/28/2024 17:30 Note Text: [facility] DEPARTMENT OF VASCULAR SURGERY OUTPATIENT VISIT DATE March 29, 2024 OUTPATIENT VISIT TYPE ESTABLISHED SERVICE DATE: 03/29/2024 SERVICE TIME: 11:01 AM PRIMARY CARE PHYSICIAN: Jignesh Gibson MD HISTORY OF PRESENT ILLNESS: Ms. Zabala is a 53 year old female who presents today for a vascular surgery follow-up visit for bilateral EVLTs. She developed right access site induration and infection. It is slowly improving. Denies drainage, fever, or chills PAST MEDICAL HISTORY Diagnosis Date Asthma IUD 01/2007 mirena Mitral prolapse SVT (supraventricular tachycardia) (HCC) PAST SURGICAL HISTORY Procedure Laterality Date ARTHROSCOPY,ANKLE; W/ANKLE ARTHRODESIS SOCIAL HISTORY Social History Tobacco Use Smoking status: Never Smokeless tobacco: Never Substance Use Topics Alcohol use: No Drug use: No MEDICATIONS: loratadine (CLARITIN) 10 mg tablet Take 1 tablet by mouth every afternoon. fluticasone-vilanterol (BREO ELLIPTA) 200-25 mcg/dose inhaler Inhale 1 Inhalation as instructed once daily. benralizumab (FASENRA) 30 mg/mL injection Inject 1 mL subcutaneously every 4 weeks. levonorgestrel (MIRENA) 20 mcg/24 hr (5 years) IUD Inserted in office ergocalciferol, vitamin D2, (DRISDOL) 50,000 unit capsule montelukast (SINGULAIR) 10 mg tablet ALBUTEROL SULFATE (PROVENTIL INHALATION) Inhale as instructed. ALLERGIES: ALLERGIES Allergen Reactions Penicillins Unknown PHYSICAL EXAM: BP 107/69 (BP Site: Left Arm, BP Position: Sitting, BP Cuff Size: Regular Adult) Pulse 82 SpO2 97% Gen- no distress Ext- mild erythema, edema, healed access site IMPRESSION: Ms. Zabala is a 53 year old female with venous insufficiency, secondary lymphedema . PLAN and RECOMMENDATIONS: Recommend continued use of compression, elevation, exercise Referral placed for lymphedema therapy to help with symptom management. She had significant ankle injury requiring multiple surgeries in the past in which she also had issues with infection and healing following procedures SIGNATURE: Toshia Huston DO PATIENT NAME: Oneal Zabala DATE: March 29, 2024 TIME: 11:01 AM [facility] 03-29-2024 History of Presen t illness Narrative Images from the original note were not included. [facility] DEPARTMENT OF VASCULAR SURGERY OUTPATIENT VISIT DATE March 29, 2024 OUTPATIENT VISIT TYPE ESTABLISHED SERVICE DATE: 03/29/2024 SERVICE TIME: 11:01 AM PRIMARY CARE PHYSICIAN: Jignesh Gibson MD HISTORY OF PRESENT ILLNESS: Ms. Zabala is a 53 year old female who presents today for a vascular surgery follow-up visit for bilateral EVLTs. She developed right access site induration and infection. It is slowly improving. Denies drainage, fever, or chills PAST MEDICAL HISTORY Diagnosis Date Asthma IUD 01/2007 mirena Mitral prolapse SVT (supraventricular tachycardia) (HCC) PAST SURGICAL HISTORY Procedure Laterality Date ARTHROSCOPY,ANKLE; W/ANKLE ARTHRODESIS SOCIAL HISTORY Social History Tobacco Use Smoking status: Never Smokeless tobacco: Never Substance Use Topics Alcohol use: No Drug use: No MEDICATIONS: loratadine (CLARITIN) 10 mg tablet Take 1 tablet by mouth every afternoon. fluticasone-vilanterol (BREO ELLIPTA) 200-25 mcg/dose inhaler Inhale 1 Inhalation as instructed once daily. benralizumab (FASENRA) 30 mg/mL injection Inject 1 mL subcutaneously every 4 weeks. levonorgestrel (MIRENA) 20 mcg/24 hr (5 years) IUD Inserted in office ergocalciferol, vitamin D2, (DRISDOL) 50,000 unit capsule montelukast (SINGULAIR) 10 mg tablet ALBUTEROL SULFATE (PROVENTIL INHALATION) Inhale as instructed. ALLERGIES: ALLERGIES Allergen Reactions Penicillins Unknown PHYSICAL EXAM: BP 107/69 (BP Site: Left Arm, BP Position: Sitting, BP Cuff Size: Regular Adult) Pulse 82 SpO2 97% Gen- no distress Ext- mild erythema, edema, healed access site IMPRESSION: Ms. Zabala is a 53 year old female with venous insufficiency, secondary lymphedema . PLAN and RECOMMENDATIONS: Recommend continued use of compression, elevation, exercise Referral placed for lymphedema therapy to help with symptom management. She had significant ankle injury requiring multiple surgeries in the past in which she also had issues with infection and healing following procedures SIGNATURE: Toshia Huston DO PATIENT NAME: Oneal Zabala DATE: March 29, 2024 TIME: 11:01 AM documented in this encounter [facility] 03-15-2024 History of Presen t illness Narrative VASCULAR SURGERY ESTABLISHED PATIENT PRIMARY CARE PHYSICIAN: Jignesh Gibson MD SUBJECTIVE HISTORY OF PRESENT ILLNESS: Patient returns for a follow up after right leg EVLT. She had issues post operatively with phlebitis and cellulitis around access site. Her site has improved. She has remained tender although it is improving PAST MEDICAL/SURGICAL/FAMILY/SOCIAL HISTORY PAST MEDICAL HISTORY Diagnosis Date Asthma IUD 01/2007 mirena Mitral prolapse SVT (supraventricular tachycardia) (HCC) PAST SURGICAL HISTORY Procedure Laterality Date ARTHROSCOPY,ANKLE; W/ANKLE ARTHRODESIS FAMILY HISTORY Problem Relation Age of Onset Diabetes Mother Heart Mother Hypertension Father GI Father Gurd/ acid reflux Hypertension Sister Hypertension Brother SOCIAL HISTORY Social History Tobacco Use Smoking status: Never Smokeless tobacco: Never Substance Use Topics Alcohol use: No Drug use: No MEDICATIONS/ALLERGIES Current Outpatient Medications Medication Sig Dispense Refill loratadine (CLARITIN) 10 mg tablet Take 1 tablet by mouth every afternoon. fluticasone-vilanterol (BREO ELLIPTA) 200-25 mcg/dose inhaler Inhale 1 Inhalation as instructed once daily. benralizumab (FASENRA) 30 mg/mL injection Inject 1 mL subcutaneously every 4 weeks. levonorgestrel (MIRENA) 20 mcg/24 hr (5 years) IUD Inserted in office 1 Each 0 ergocalciferol, vitamin D2, (DRISDOL) 50,000 unit capsule montelukast (SINGULAIR) 10 mg tablet ALBUTEROL SULFATE (PROVENTIL INHALATION) Inhale as instructed. No current facility-administered medications for this visit. ALLERGIES Allergen Reactions Penicillins Unknown OBJECTIVE BP 108/72 (BP Site: Left Arm, BP Position: Sitting, BP Cuff Size: Regular Adult) Pulse 83 SpO2 97% Gen- no distress Ext- access site- left healed, right closed, right lower extremity redness at mid-distal lower leg ASSESSMENT Symptomatic varicose veins PLAN/RECOMMENDATIONS Recommend continued compression as tolerated Follow up in 2 weeks SIGNATURE: Toshia Huston DO PATIENT NAME: Oneal Zabala DATE: April 12, 2024 TIME: 5:44 PM documented in this encounter [facility] 03-15-2024 Note HNO ID: [id number] Author: TOSHIA HUSTON DO Service: ? Author Type: Physician Type: Progress Notes Filed: 04/12/2024 18:01 Note Text: VASCULAR SURGERY ESTABLISHED PATIENT PRIMARY CARE PHYSICIAN: Jignesh Gibson MD SUBJECTIVE HISTORY OF PRESENT ILLNESS: Patient returns for a follow up after right leg EVLT. She had issues post operatively with phlebitis and cellulitis around access site. Her site has improved. She has remained tender although it is improving PAST MEDICAL/SURGICAL/FAMILY/SOCIAL HISTORY PAST MEDICAL HISTORY Diagnosis Date Asthma IUD 01/2007 mirena Mitral prolapse SVT (supraventricular tachycardia) (HCC) PAST SURGICAL HISTORY Procedure Laterality Date ARTHROSCOPY,ANKLE; W/ANKLE ARTHRODESIS FAMILY HISTORY Problem Relation Age of Onset Diabetes Mother Heart Mother Hypertension Father GI Father Gurd/ acid reflux Hypertension Sister Hypertension Brother SOCIAL HISTORY Social History Tobacco Use Smoking status: Never Smokeless tobacco: Never Substance Use Topics Alcohol use: No Drug use: No MEDICATIONS/ALLERGIES Current Outpatient Medications Medication Sig Dispense Refill loratadine (CLARITIN) 10 mg tablet Take 1 tablet by mouth every afternoon. fluticasone-vilanterol (BREO ELLIPTA) 200-25 mcg/dose inhaler Inhale 1 Inhalation as instructed once daily. benralizumab (FASENRA) 30 mg/mL injection Inject 1 mL subcutaneously every 4 weeks. levonorgestrel (MIRENA) 20 mcg/24 hr (5 years) IUD Inserted in office 1 Each 0 ergocalciferol, vitamin D2, (DRISDOL) 50,000 unit capsule montelukast (SINGULAIR) 10 mg tablet ALBUTEROL SULFATE (PROVENTIL INHALATION) Inhale as instructed. No current facility-administered medications for this visit. ALLERGIES Allergen Reactions Penicillins Unknown OBJECTIVE BP 108/72 (BP Site: Left Arm, BP Position: Sitting, BP Cuff Size: Regular Adult) Pulse 83 SpO2 97% Gen- no distress Ext- access site- left healed, right closed, right lower extremity redness at mid-distal lower leg ASSESSMENT Symptomatic varicose veins PLAN/RECOMMENDATIONS Recommend continued compression as tolerated Follow up in 2 weeks SIGNATURE: Toshia Huston DO PATIENT NAME: Oneal Zabala DATE: April 12, 2024 TIME: 5:44 PM [facility] 03-01-2024 History of Presen t illness Narrative Images from the original note were not included. [facility] DEPARTMENT OF VASCULAR SURGERY OUTPATIENT VISIT DATE March 01, 2024 OUTPATIENT VISIT TYPE ESTABLISHED SERVICE DATE: 03/01/2024 SERVICE TIME: 11:39 AM PRIMARY CARE PHYSICIAN: Jignesh Gibson MD HISTORY OF PRESENT ILLNESS: Ms. Zaabla is a 53 year old female who presents today for a vascular surgery follow-up visit after right GSV EVLT. She has erythema and slight drainage from access site. She states it is improving with antibiotics PAST MEDICAL HISTORY Diagnosis Date Asthma IUD 01/2007 mirena Mitral prolapse SVT (supraventricular tachycardia) ([facility]) PAST SURGICAL HISTORY Procedure Laterality Date ARTHROSCOPY,ANKLE; W/ANKLE ARTHRODESIS SOCIAL HISTORY Social History Tobacco Use Smoking status: Never Smokeless tobacco: Never Substance Use Topics Alcohol use: No Drug use: No MEDICATIONS: clindamycin (CLEOCIN) 300 mg capsule Take 1 capsule by mouth every 8 hours for 10 days. traMADol (ULTRAM) 50 mg tablet Take 1 tablet by mouth every 8 hours as needed for pain for up to 7 days. loratadine (CLARITIN) 10 mg tablet Take 1 tablet by mouth every afternoon. fluticasone-vilanterol (BREO ELLIPTA) 200-25 mcg/dose inhaler Inhale 1 Inhalation as instructed once daily. benralizumab (FASENRA) 30 mg/mL injection Inject 1 mL subcutaneously every 4 weeks. levonorgestrel (MIRENA) 20 mcg/24 hr (5 years) IUD Inserted in office ergocalciferol, vitamin D2, (DRISDOL) 50,000 unit capsule montelukast (SINGULAIR) 10 mg tablet ALBUTEROL SULFATE (PROVENTIL INHALATION) Inhale as instructed. ALLERGIES: ALLERGIES Allergen Reactions Penicillins Unknown PHYSICAL EXAM: BP 109/69 (BP Site: Left Arm, BP Position: Sitting, BP Cuff Size: Regular Adult) Pulse 74 SpO2 97% Gen- no distress Ext- erythema, no crepitus, tender to touch medial distal right calf, access site with serous drainage, no purulence Diagnostic tests reviewed for today's visit: Most recent labs Most recent imaging IMPRESSION: Ms. Zabala is a 53 year old female with symptomatic varicose veins s/p bilateral GSV EVLT . PLAN and RECOMMENDATIONS: Cellulitis- continue antibitotics Continue light compression Follow up in two weeks SIGNATURE: Toshia Huston DO PATIENT NAME: Oneal Zabala DATE: March 01, 2024 TIME: 11:39 AM documented in this encounter [facility] 02-19-2024 Nurse Note [facility] Operative Report Endovenous Laser Ablation Oneal Zandra Zabala February 19, 2024 1970 ALLERGIES: ALLERGIES Allergen Reactions Penicillins Unknown Physician: Dr. Huston Assistants: Xiang Bernal RVIgor Leg: right Greater saphenous vein Position:Supine Pre-op Assessment: Ambulatory, Calm, and Oriented Xanax Dosage (Oral) : 1mg Time: 1145 SIGN IN COMPLETE: Yes Patient in Room: 1310 Safety Strap around torso: NA Vein Marked: No Hair Clipped: No Prep: chloraprep Time out: 1324 UNIVERSAL PROTOCOL / SAFETY CHECKLIST Procedure to be Performed: right leg EVLT Sign In: A Moment of CARE was completed. Personnel directly involved with the procedure wore the appropriate PPE (Personal Protective Equipment). Patient/Surrogate Stated/Verified: PATIENT VERIFIED(optional for EMERGENT procedures): Patient name, Date of , Relevant allergies, and The intended procedure Time Out Communication: Intended patient and procedure match the source documents. Consent documented and matches the intended procedure. Sign Out: SIGN OUT (optional for EMERGENT procedures): No specimen collected. Alba Jaime RN Start Time: 1325 1% Xylocaine Plain + 8.4% NaBicarb (5:1 mixture): Total injected: 5cc 1000cc Sodium Chloride + 40cc Lidocaine HCl 1% + 20cc 8.4% Sodium Bicarbonate Total Tumescent Local Injected: 725cc Laser Equipment: Laser protective googles ON patient and staff and Angiodynamics Venacure 1470 Laser Energy Used: EVLT: Greater saphenous vein 7 Enrique 55 Joules/cm 3315 Total # Joules 474 Seconds 60 cm Sharp Count: Pre-op: 5 Post-op: 5 Dressinx2 boarder gauze, band-aid compression stocking End Time: 1405 Post-op Assessment: Ambulatory, Calm, and Oriented Discharge Instructions: Written Homegoing Instructions given & Reviewed Verbally with Patient Discharge Time: 1415 Discharged with Senior Devops Engineer: daughter [facility] 02-19-2024 Nurse Note [facility] Operative Report Endovenous Laser Ablation Oneal Zabala February 19, 2024 1970 ALLERGIES: ALLERGIES Allergen Reactions Penicillins Unknown Physician: Dr. Huston Assistants: Xiang Bernal RVT Leg: right Greater saphenous vein Position:Supine Pre-op Assessment: Ambulatory, Calm, and Oriented Xanax Dosage (Oral) : 1mg Time: 1145 SIGN IN COMPLETE: Yes Patient in Room: 1310 Safety Strap around torso: NA Vein Marked: No Hair Clipped: No Prep: chloraprep Time out: 1324 UNIVERSAL PROTOCOL / SAFETY CHECKLIST Procedure to be Performed: right leg EVLT Sign In: A Moment of CARE was completed. Personnel directly involved with the procedure wore the appropriate PPE (Personal Protective Equipment). Patient/Surrogate Stated/Verified: PATIENT VERIFIED(optional for EMERGENT procedures): Patient name, Date of , Relevant allergies, and The intended procedure Time Out Communication: Intended patient and procedure match the source documents. Consent documented and matches the intended procedure. Sign Out: SIGN OUT (optional for EMERGENT procedures): No specimen collected. Alba Jaime RN Start Time: 1325 1% Xylocaine Plain + 8.4% NaBicarb (5:1 mixture): Total injected: 5cc 1000cc Sodium Chloride + 40cc Lidocaine HCl 1% + 20cc 8.4% Sodium Bicarbonate Total Tumescent Local Injected: 725cc Laser Equipment: Laser protective googles ON patient and staff and Angiodynamics Venacure 1470 Laser Energy Used: EVLT: Greater saphenous vein 7 Enrique 55 Joules/cm 3315 Total # Joules 474 Seconds 60 cm Sharp Count: Pre-op: 5 Post-op: 5 Dressinx2 boarder gauze, band-aid compression stocking End Time: 1405 Post-op Assessment: Ambulatory, Calm, and Oriented Discharge Instructions: Written Homegoing Instructions given & Reviewed Verbally with Patient Discharge Time: 1415 Discharged with Senior Devops Engineer: daughter documented in this encounter [facility] 02-19-2024 History of Presen t illness Narrative Date and Start/End times of Surgery: February 24, 2024 Surgeon: Toshia Huston DO Civil Project Engineer(s): Franky Homolya Procedure(s): EVLT ablation of the right great saphenous vein Anesthesia: Local with 1% lidocaine, and tumescence anesthesia using 40 cc of 1% lidocaine + 20 cc of 8.4% sodium bicarbonate in 1000 cc of normal saline Preoperative Diagnosis: Symptomatic varicose veins right leg. Postoperative Diagnoses: Symptomatic varicose veins right leg. Operative Indications: The patient is a 53 year old female with painful varicose veins, especially on the right leg. Noninvasive vascular laboratory studies revealed valvular incompetence in the right great saphenous vein. Options of therapy were discussed. She elected to proceed with surgery. Operative Findings: Varicose veins right leg. Procedure Narrative: The patient was seen in the preoperative area, consent was obtained. She was then taken to the procedure room and placed in supine position. The patient's right lower extremity was prepped with chloraprep and draped in the usual sterile fashion. Attention was first directed to the saphenous vein just below the knee. Local anesthesia was obtained by injecting Lidocaine 1%. Under ultrasound guidance, the saphenous vein was accessed using the Micro-Access set. A 0.035 inch wire was passed through the sheath to the level of the saphenofemoral junction. The sheath was removed, and a 4-Polish sheath and dilator were passed over the guidewire to the level of the saphenofemoral junction. The guidewire and dilator were removed and the AngioDynamics EVLT gold-tipped laser fiber was passed through the sheath to the level of the saphenofemoral junction. The laser fiber was secured to the sheath. Under ultrasound guidance, the tip of the laser fiber was positioned approximately 3 cm distal to the saphenofemoral junction and just distal to the entrance of the superficial epigastric vein. Under ultrasound guidance, tumescence solution was injected into the fascial sheath containing the saphenous vein. The tumescence solution consisted of normal saline, lidocaine, and sodium bicarbonate. A total of 725 mL was injected. The laser power was then set at 7 enrique. The laser was energized and withdrawn at a rate of 1 cm per 9 seconds for the first several cm. Then, the rate of withdrawal was increased to 1 cm per 6 seconds for the remainder of the 60 cm treated. A total of 3325 joules were delivered over 474 seconds to the 60 cm of vein treated. This averaged 55 joules per cm. The sheath and laser fiber were removed. Pressure was held at the site of catheter insertion for 2 minutes. The vein was again interrogated using duplex ultrasound. The vein was completely collapsed and the chávez were thickened. A Tegaderm was applied to the catheter insertion site. A 20-30 mm Hg thigh high compression stocking with a waist belt was put on the leg. The patient tolerated the procedure well. Postoperative instructions were given. Surgeon/Practitioner Performing Venous Access: Toshia Huston DO Surgeon/Practitioner Performing Ablation: Toshia Huston DO Estimated Blood Loss: none Drains: none Prosthetic Devices, Grafts, or Implants: none Specimens: none Complications: none documented in this encounter [facility] 02-19-2024 Instructions Alba Jaime RN - 02/19/2024 1:44 PM EDT Please follow these instructions after your endovenous laser ablation procedure: You are encouraged to walk at least 20 minutes every 3-4 hours during the day. Walking will help with the recovery process. Refrain from vigorous gym exercise and running for 72 hours. No heavy lifting (greater than 40lbs) for 3-5 days. Avoid submerging your leg (baths, swimming, hot tub) for 72 hours. You will need to wear a compression stocking for two days and two nights following your procedure. After this, compression should be worn during the day only for two weeks. You may shower the morning after your procedure. It is normal to experience some bruising, soreness, and tightening sensations after your procedure for a few weeks. Lzce-dwj-vecncak Ibuprofen (Motrin 200mg), 2-3 tablets every 8 hours with food, should be taken for 7 days after your procedure to help with pain and swelling. Avoid exposure to direct sunlight for 2 weeks after your procedure. Do not fly or take long car rides for 1 week following your procedure. You will be scheduled a follow-up ultrasound 1 week after your procedure. Follow-up with Dr. Huston will occur approximately 1 month after your procedure. If you experience severe pain, swelling, or bleeding, please contact the office at [phone] documented in this encounter [facility] 02-18-2024 Telephone encounter Note Called patient at [phone] , unable to leave a VM [employer]hart message sent [facility] 02-18-2024 Miscellaneous Notes Called patient at [phone] , unable to leave a VM [employer] message sent Left VM: Pt calling in requesting Xanax for RIGHT EVLT scheduled February 18. Also reporting she has an US scheduled tomorrow (Post EVLT) for her LEFT leg, which has some redness, warm to touch and tender. She is questioning inflammation. LEFT EVLT completed 02/12/24. Inquiring what should she do. documented in this encounter [facility] 02-18-2024 Telephone encounter Note Left VM: Pt calling in requesting Xanax for RIGHT EVLT scheduled February 18. Also reporting she has an US scheduled tomorrow (Post EVLT) for her LEFT leg, which has some redness, warm to touch and tender. She is questioning inflammation. LEFT EVLT completed 02/12/24. Inquiring what should she do. [facility] 02-12-2024 History of Presen t illness Narrative Date and Start/End times of Surgery: February 12, 2024 Surgeon: Toshia Huston DO Civil Project Engineer(s): Franky Bernal Procedure(s): EVLT ablation of the left great saphenous vein Anesthesia: Local with 1% lidocaine, and tumescence anesthesia using 40 cc of 1% lidocaine + 20 cc of 8.4% sodium bicarbonate in 1000 cc of normal saline Preoperative Diagnosis: Symptomatic varicose veins left leg. Postoperative Diagnoses: Symptomatic varicose veins left leg. Operative Indications: The patient is a 53 year old female with painful varicose veins, especially on the left leg. Noninvasive vascular laboratory studies revealed valvular incompetence in the left great saphenous vein. Options of therapy were discussed. She elected to proceed with surgery. Operative Findings: Varicose veins left leg. Procedure Narrative: The patient was seen in the preoperative area, consent was obtained, and 1 mg of xanax was given po. She was then taken to the procedure room and placed in supine position. The patient's left lower extremity was prepped with chloraprep and draped in the usual sterile fashion. Attention was first directed to the saphenous vein just below the knee. Local anesthesia was obtained by injecting 2 cc of Lidocaine 1%. Under ultrasound guidance, the saphenous vein was accessed using the Micro-Access set. A 0.035 inch wire was passed through the sheath to the level of the saphenofemoral junction. The sheath was removed, and a 4-Polish sheath and dilator were passed over the guidewire to the level of the saphenofemoral junction. The guidewire and dilator were removed and the AngioDynamics EVLT gold-tipped laser fiber was passed through the sheath to the level of the saphenofemoral junction. The laser fiber was secured to the sheath. Under ultrasound guidance, the tip of the laser fiber was positioned approximately 3 cm distal to the saphenofemoral junction and just distal to the entrance of the superficial epigastric vein. Under ultrasound guidance, tumescence solution was injected into the fascial sheath containing the saphenous vein. The tumescence solution consisted of normal saline, lidocaine, and sodium bicarbonate. A total of 450 mL was injected. The laser power was then set at 41 enrique. The laser was energized and withdrawn at a rate of 1 cm per 9 seconds for the first several cm. Then, the rate of withdrawal was increased to 1 cm per 6 seconds for the remainder of the 41 cm treated. A total of 2431 joules were delivered over 347 seconds to the 41cm of vein treated. This averaged 59 joules per cm. The sheath and laser fiber were removed. Pressure was held at the site of catheter insertion for 2 minutes. The vein was again interrogated using duplex ultrasound. The vein was completely collapsed and the chávez were thickened. A Tegaderm was applied to the catheter insertion site. A 20-30 mm Hg thigh high compression stocking was put on the leg. The patient tolerated the procedure well. Postoperative instructions were given. Surgeon/Practitioner Performing Venous Access: Toshia Huston DO Surgeon/Practitioner Performing Ablation: Toshia Huston DO Estimated Blood Loss: none Drains: none Prosthetic Devices, Grafts, or Implants: none Specimens: none Complications: none documented in this encounter [facility] 02-12-2024 Instructions Alba Jaime RN - 02/12/2024 10:48 AM EDT Please follow these instructions after your endovenous laser ablation procedure: You are encouraged to walk at least 20 minutes every 3-4 hours during the day. Walking will help with the recovery process. Refrain from vigorous gym exercise and running for 72 hours. No heavy lifting (greater than 40lbs) for 3-5 days. Avoid submerging your leg (baths, swimming, hot tub) for 72 hours. You will need to wear a compression stocking for two days and two nights following your procedure. After this, compression should be worn during the day only for two weeks. You may shower the morning after your procedure. It is normal to experience some bruising, soreness, and tightening sensations after your procedure for a few weeks. Unin-csh-ymelcwy Ibuprofen (Motrin 200mg), 2-3 tablets every 8 hours with food, should be taken for 7 days after your procedure to help with pain and swelling. Avoid exposure to direct sunlight for 2 weeks after your procedure. Do not fly or take long car rides for 1 week following your procedure. You will be scheduled a follow-up ultrasound 1 week after your procedure. Follow-up with Dr. Huston will occur approximately 1 month after your procedure. If you experience severe pain, swelling, or bleeding, please contact the office at [phone] documented in this encounter [facility] 02-12-2024 Nurse Note [facility] Operative Report Endovenous Laser Ablation Oneal Yeungwilfrido February 12, [birth year]24 1970 ALLERGIES: ALLERGIES Allergen Reactions Penicillins Unknown Physician: Dr. Huston Assistants: Franky Bernal RVIgor Leg: left Greater saphenous vein Position:Supine Pre-op Assessment: Ambulatory, Calm, and Oriented Xanax Dosage (Oral) : 1mg Time: 0925 SIGN IN COMPLETE: Yes Patient in Room: 0940 Safety Strap around torso: NA Vein Marked: No Hair Clipped: No Prep: chloraprep Time out: 1030 UNIVERSAL PROTOCOL / SAFETY CHECKLIST Procedure to be Performed: left leg EVLT Sign In: A Moment of CARE was completed. Personnel directly involved with the procedure wore the appropriate PPE (Personal Protective Equipment). Patient/Surrogate Stated/Verified: PATIENT VERIFIED(optional for EMERGENT procedures): Patient name, Date of , Relevant allergies, and The intended procedure Time Out Communication: Intended patient and procedure match the source documents. Consent documented and matches the intended procedure. Sign Out: SIGN OUT (optional for EMERGENT procedures): No specimen collected. Alba Jaime RN Start Time: 1031 1% Xylocaine Plain + 8.4% NaBicarb (5:1 mixture): Total injected: 5cc 1000cc Sodium Chloride + 40cc Lidocaine HCl 1% + 20cc 8.4% Sodium Bicarbonate Total Tumescent Local Injected: 450cc Laser Equipment: Laser protective googles ON patient and staff and Angiodynamics Venacure 1470 Laser Energy Used: EVLT: Greater saphenous vein 7 Enrique 59Joules/cm 2431 Total # Joules 347 Seconds 41 cm Sharp Count: Pre-op: 5 Post-op: 5 Dressinx2 boarder gauze, band aid, compression stocking End Time: 1100 Post-op Assessment: Ambulatory, Calm, and Oriented Discharge Instructions: Written Homegoing Instructions given & Reviewed Verbally with Patient Discharge Time: 1110 Discharged with Senior Devops Engineer: daughter [facility] 02-12-2024 Nurse Note [facility] Operative Report Endovenous Laser Ablation Oneal Zabala February 12, 2024 1970 ALLERGIES: ALLERGIES Allergen Reactions Penicillins Unknown Physician: Dr. Huston Assistants: Franky Bernal RVIgor Leg: left Greater saphenous vein Position:Supine Pre-op Assessment: Ambulatory, Calm, and Oriented Xanax Dosage (Oral) : 1mg Time: 0925 SIGN IN COMPLETE: Yes Patient in Room: 0940 Safety Strap around torso: NA Vein Marked: No Hair Clipped: No Prep: chloraprep Time out: 1030 UNIVERSAL PROTOCOL / SAFETY CHECKLIST Procedure to be Performed: left leg EVLT Sign In: A Moment of CARE was completed. Personnel directly involved with the procedure wore the appropriate PPE (Personal Protective Equipment). Patient/Surrogate Stated/Verified: PATIENT VERIFIED(optional for EMERGENT procedures): Patient name, Date of , Relevant allergies, and The intended procedure Time Out Communication: Intended patient and procedure match the source documents. Consent documented and matches the intended procedure. Sign Out: SIGN OUT (optional for EMERGENT procedures): No specimen collected. Alba Jaime RN Start Time: 1031 1% Xylocaine Plain + 8.4% NaBicarb (5:1 mixture): Total injected: 5cc 1000cc Sodium Chloride + 40cc Lidocaine HCl 1% + 20cc 8.4% Sodium Bicarbonate Total Tumescent Local Injected: 450cc Laser Equipment: Laser protective googles ON patient and staff and Angiodynamics Venacure 1470 Laser Energy Used: EVLT: Greater saphenous vein 7 Enrique 59Joules/cm 2431 Total # Joules 347 Seconds 41 cm Sharp Count: Pre-op: 5 Post-op: 5 Dressinx2 boarder gauze, band aid, compression stocking End Time: 1100 Post-op Assessment: Ambulatory, Calm, and Oriented Discharge Instructions: Written Homegoing Instructions given & Reviewed Verbally with Patient Discharge Time: 1110 Discharged with Senior Devops Engineer: daughter documented in this encounter [facility] 01-27-2024 Miscellaneous Notes Left message for pt to call [facility] at [phone] to schedule apporved procedures. documented in this encounter [facility] 01-27-2024 Telephone encounter Note Left message for pt to call [facility] at [phone] to schedule apporved procedures. [facility] Work Phone: 01-05-2024 History of Presen t illness Narrative Images from the original note were not included. [facility] DEPARTMENT OF VASCULAR SURGERY OUTPATIENT VISIT DATE January 05, 2024 OUTPATIENT VISIT TYPE ESTABLISHED SERVICE DATE: 01/05/2024 SERVICE TIME: 4:12 PM PRIMARY CARE PHYSICIAN: Jignesh Gibson MD HISTORY OF PRESENT ILLNESS: Ms. Zabala is a 53 year old female who presents today for a vascular surgery follow-up visit bilateral left greater than right edema and symptomatic varicose veins. She has been wearing compression with slight improvement in symptoms however they continued to impact day to day activity PAST MEDICAL HISTORY Diagnosis Date Asthma IUD 01/2007 mirena Mitral prolapse SVT (supraventricular tachycardia) (H[facility]) PAST SURGICAL HISTORY Procedure Laterality Date ARTHROSCOPY,ANKLE; W/ANKLE ARTHRODESIS SOCIAL HISTORY Social History Tobacco Use Smoking status: Never Smokeless tobacco: Never Substance Use Topics Alcohol use: No Drug use: No MEDICATIONS: loratadine (CLARITIN) 10 mg tablet Take 1 tablet by mouth every afternoon. fluticasone-vilanterol (BREO ELLIPTA) 200-25 mcg/dose inhaler Inhale 1 Inhalation as instructed once daily. benralizumab (FASENRA) 30 mg/mL injection Inject 1 mL subcutaneously every 4 weeks. levonorgestrel (MIRENA) 20 mcg/24 hr (5 years) IUD Inserted in office ergocalciferol, vitamin D2, (DRISDOL) 50,000 unit capsule montelukast (SINGULAIR) 10 mg tablet ALBUTEROL SULFATE (PROVENTIL INHALATION) Inhale as instructed. levocetirizine 5 mg tablet Take 5 mg by mouth. ALLERGIES: ALLERGIES Allergen Reactions Penicillins Unknown PHYSICAL EXAM: BP 114/74 (BP Site: Left Arm, BP Position: Sitting, BP Cuff Size: Regular Adult) Pulse 79 SpO2 97% Gen- no distress Ext- bilateral lower extremity edema, left medial malleolar hyperpigmentation Diagnostic tests reviewed for today's visit: Most recent labs Most recent imaging Venous Reflux Testing RIGHT SIDE - DEEP VEINS Technically limited study.visualized. Positive for valvular incompetency in the common femoral vein and popliteal vein. Fluid collection noted in the popliteal fossa measuring 5.0 x 1.7 x 1.0 cm. RIGHT SIDE - SUPERFICIAL VEINS Positive for valvular incompetency in the great saphenous vein. Varicosity noted mid thigh to mid calf. Varicosities mid calf. An incompetent lokie engineer is noted mid calf. Negative for valvular incompetency in the small saphenous vein. LEFT SIDE - DEEP VEINS Negative for acute deep vein thrombosis in vessels visualized. Positive for valvular incompetency in the common femoral vein, femoral vein and popliteal vein. LEFT SIDE - SUPERFICIAL VEINS Positive for valvular incompetency in the great saphenous vein. Vein exits fascia at mid thigh to proximal calf. An incompetent lokie engineer is noted mid calf. Varicosities mid calf. Negative for valvular incompetency in the small saphenous vein IMPRESSION: Ms. Zabala is a 53 year old female with symptomatic varicose veins, venous insufficiency . PLAN and RECOMMENDATIONS: Reviewed venous duplex with patient Recommend Left GSV EVLT and Right GSV EVLT. We discussed risks and benefits. She would benefit as symptoms progress despite non-interventional therapy She does have deep vein reflux and will benefit from correction compression stocking usage Will have office arrange and schedule SIGNATURE: Toshia Huston DO PATIENT NAME: Oneal Zabala DATE: January 05, 2024 TIME: 4:12 PM documented in this encounter [facility] 11-10-2023 History of Presen t illness Narrative Images from the original note were not included. [facility] DEPARTMENT OF VASCULAR SURGERY OUTPATIENT VISIT DATE November 10, 2023 OUTPATIENT VISIT TYPE CONSULTATION SERVICE DATE: 11/10/2023 SERVICE TIME: 9:27 AM PRIMARY CARE PHYSICIAN: Jignesh Gibson MD REFERRING PROVIDER: Jignesh Gibson ([facility]) [address] [address] Consult requested for an opinion regarding the evaluation and treatment of the above. My final impression and recommendations will be communicated back to the requesting physician by way of the shared medical record or letter via [place] mail. CHIEF COMPLAINT: Patient presents with: New Patient History of Present Illness: Patient is a 53 year old White female presenting for consultation, evaluation and possible treatment of varicose veins and leg edema.bilateral aching, throbbing, and heaviness. Predisposing factors included family history of varicose veins is positive and include(s) aunt without surgery uncle with surgery. No specific history of injury or prior problems. Relieving factors include support hose, elevation of legs, and reduced activity with mild improvement in symptoms. Patient denies DVT, phlebitis, and treatment with blood thinners. 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 She has been wearing compression for years. Symptoms have slowly progressed and are now impacting day to day activities especially when she has stand for hours at Robotic competitions. She notices her left leg is extremely tired and fatigued PAIN ASSESSMENT: PAIN EVALUATION No data found in the last 1 encounters. Obstetric History T0 L2 SAB0 IAB0 Ectopic0 Multiple0 Live Births0 Name of Baby 1: Not recorded Date: Not recorded GA: Not recorded Delivery: Not recorded Apgar1: Not recorded Apgar5: Not recorded Living: Not recorded Name of Baby 2: Not recorded Date: Not recorded GA: Not recorded Delivery: Not recorded Apgar1: Not recorded Apgar5: Not recorded Living: Not recorded Duration of Symptoms: Progressive PAST MEDICAL HISTORY Diagnosis Date Asthma IUD 01/2007 mirena Mitral prolapse SVT (supraventricular tachycardia) ([facility]) PAST SURGICAL HISTORY Procedure Laterality Date ARTHROSCOPY,ANKLE; W/ANKLE ARTHRODESIS SOCIAL HISTORY: Social History Tobacco Use Smoking status: Never Smokeless tobacco: Never Substance Use Topics Alcohol use: No Drug use: No FAMILY HISTORY Problem Relation Age of Onset Diabetes Mother Heart Mother Hypertension Father GI Father Gurd/ acid reflux Hypertension Sister Hypertension Brother MEDICATIONS: fluticasone-vilanterol (BREO ELLIPTA) 200-25 mcg/dose inhaler Inhale 1 Inhalation as instructed once daily. benralizumab (FASENRA) 30 mg/mL injection Inject 1 mL subcutaneously every 4 weeks. levonorgestrel (MIRENA) 20 mcg/24 hr (5 years) IUD Inserted in office ergocalciferol, vitamin D2, (DRISDOL) 50,000 unit capsule montelukast (SINGULAIR) 10 mg tablet ALBUTEROL SULFATE (PROVENTIL INHALATION) Inhale as instructed. levocetirizine 5 mg tablet Take 5 mg by mouth. ALLERGIES: ALLERGIES Allergen Reactions Penicillins Unknown REVIEW of SYSTEMS: Constitutional: No weight loss, malaise or fevers. HEENT: Negative for frequent or significant headaches, No changes in hearing or vision, no nose bleeds or other nasal problems Respiratory: Negative for cough, wheezing, or shortness of breath Cardiovascular: Negative for chest pain and palpitations and Positive for leg swelling Gatrointestinal: Negative for abdominal discomfort, blood in stools or black stools or change in bowel habits Genitourinary: No history of dysuria, frequency, or incontinence Musculoskeletal: Negative for muscle pain and Positive for low back pain, joint swelling, and joint pain Endocrine: Negative for cold or heat intolerance, polyuria, polydipsia and goiter Hematology/Lymphatic: Negative for prolonged bleeding, bruising easily or swollen nodes Neurologic: No history or headaches, syncope, paralysis, seizures or tremors Integumentary: Negative for lesions, rash, and itching. PHYSICAL EXAM: VITALS: There were no vitals taken for this visit. General: Alert, oriented, cooperative, healthy appearance Integumentary: Normal color, no rash, no lesions. HEENT: EOM, pupils equal, round and reactive. Cardiovascular: Pulse regular. Lungs: No chest deformities or chest wall tenderness. Abdomen: Not examined Extremities: Varicose veins, edema, left medial malleolar hyperpigmentation Neurological: AAOx3. Normal cognition and motor skills. Vascular: Dorsalis Pedal Right: Normal - Left: Normal Diagnostic tests reviewed for today's visit: Most recent labs Most recent imaging IMPRESSION: Ms. Zabala is a 53 year old female with symptomatic varicose veins . PLAN and RECOMMENDATIONS: Discussed venous pathology with patient Recommend continued use of compression stockings, elevation and exercise Will get venous reflux testing and follow up to discuss results SIGNATURE: Toshia Huston DO PATIENT NAME: Oenal Zabala DATE: November 10, 2023 TIME: 9:27 AM documented in this encounter [facility] 07-09-2022 History of Presen t illness Narrative [facility] OPEN ACCESS QUESTIONNAIRE 1. Are you currently having any new or unusual stomach/gastrointestinal issues at this time such as constipation, diarrhea, abdominal pain, rectal bleeding etc?No 2. Do you have any difficulty swallowing? No 3. Do you have any implanted devices such as a defibrillator, pacemaker, cardiac stents or deep brain stimulator? No 4. Do you take any Blood thinners such as Coumadin, Plavix, Xarelto, Eliquis, Brilinta or any other blood thinner? No 5. Do you have any new or past cardiac (heart) or pulmonary (lung) issues? Yes / asthma, mitral valve issues that are usually fine as long as she can breathe 6. Do you currently use any oxygen? No 7. Have you been hospitalized in the past 6 weeks? No 8. Have you had difficulty with anesthesia previously re: Difficult intubation? No Other difficulty or allergic reaction to anesthesia other than post op N/V? No 9. Are you on dialysis? No 10. Do you have any bleeding disorders such as hemophilia or Factor 5? No 11. Are you an Insulin Dependent Diabetic? No IF ANY OF THE TOP ELEVEN QUESTIONS ARE ANSWERED YES PLEASE SCHEDULE THE PATIENT FOR A CONSULT. advised 12. Is the patient's BMI 40 or greater? No:There is no height or weight on file to calculate BMI.. 13. Do you take any narcotics or anti-Anxiety medications? No 14. Do you use any illegal or recreational drugs including marijuana? No 15. Any alcohol use: No. 16. Have you been diagnosed with chronic liver disease such as hepatitis or cirrhosis? No 17. Do you have a seizure disorder? No 18. Do you have ulcerative colitis or Crohn's disease? No 19. Are you or could you be ? No 20. Any other important health information we should be made aware of prior to your colonoscopy? No To be completed by LIP: Did patient have MAC anesthesia with a previous endoscopy procedure? No Patient appropriate for Open Access Colonoscopy: Yes: appropriate for Open Access Procedure Checklist: Prior to closing the encounter: Complete questionnaire: Yes Confirm Prep order has been Ordered/Pended: Yes. Patient's procedure could be delayed if not given the script for the prep. Please ensure the prep is escripted to pharmacy or printed. Instructions for the prep will print upon filing or pending this smartset. Please send all open access questionnaires to [facility] Pool #[id number] Oneal is a 52 year old who presents for an annual gynecologic exam without complaints. Doing well w/ mirena. Had some spotting over the summer after she had COVID. No regular hot flashes. No night sweats. Postmenopausal: not likely HRT use: No. 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 PAST MEDICAL HISTORY Diagnosis Date Asthma IUD 01/2007 mirena Mitral prolapse SVT (supraventricular tachycardia) ([facility]) PAST SURGICAL HISTORY Procedure Laterality Date ARTHROSCOPY,ANKLE; W/ANKLE ARTHRODESIS FAMILY HISTORY Problem Relation Age of Onset Diabetes Mother Heart Mother Hypertension Father GI Father Gurd/ acid reflux Hypertension Sister Hypertension Brother SOCIAL HISTORY Social History Tobacco Use Smoking status: Never Smokeless tobacco: Never Substance Use Topics Alcohol use: No Drug use: No REVIEW OF SYSTEMS Abdomen: No abdominal pain, nausea, vomiting, diarrhea, or constipation. No bloating, early satiety, indigestion, or increased flatulence. Bladder: No dysuria, gross hematuria, urinary frequency, urinary urgency, or incontinence Breast: No breast lumps, nipple d/c, overlying skin changes, redness or skin retraction Allergies and current medication updated:Yes EXAM: BP 104/60 Wt 224 lb (101.6kg) GENERAL: pleasant, female in no apparent distress HEENT: Normocephalic, atraumatic, mucus membranes moist, and no lesions NECK: Supple, full range of motion, no adenopathy, and thyroid normal DERMATOLOGY: Normal, without lesions, non-icteric, and non-hirsute BREAST: soft, non-tender, symmetric, no dominant mass, normal nipple-areolar complex, no lymphadenopathy, and no nipple discharge CHEST: Normal inspiratory effort ABDOMEN: soft, non-tender, and no masses PELVIC: external genitalia normal, normal Bartholin's glands, urethra, Burnet's glands, no vulvar lesions, no cervical lesions, good vaginal support, physiologic discharge present, normal appearing perineal body and perianal region, IUD strings noted BIMANUAL: uterus normal size, shape and consistency, no adnexal masses, and non-tender RECTOVAGINAL: deferred. NEURO: alert and oriented x3,exam grossly non-focal EXTREMITIES: normal ASSESSMENT/PLAN: 1) Health maintenance: Pap done with HPV. Mammogram ordered Colon cancer screening: colonoscopy ordered flu vaccine today Mirena still effective for 2 more years, call if issues 2) Follow up one year or sooner as needed Stephy Peraels MD documented in this encounter [facility] 07-09-2022 Instructions Annalee Dudley MA - 07/09/2022 3:10 PM EDT Images from the original note were not included. Health Information For Patients and the Community How to Prepare for Your Colonoscopy Using Golytely, Nulytely, Trilyte or Colyte Preparations IMPORTANT - Please Read These Instructions at Least 2 Weeks Before Your Colonoscopy [facility] Instructions: ?Your bowel must be empty so that your doctor can clearly view your colon. Follow all of the instructions in this handout EXACTLY as they are written. If you do NOT follow the directions for when to start drinking the bowel preparation (see next page), your colonoscopy WILL be cancelled. ?Do NOT eat any solid food the ENTIRE day before your colonoscopy. ?Buy your bowel preparation at least 5 days before your colonoscopy. ?Do NOT mix the solution until the day before your colonoscopy. Designated Senior Devops Engineer on the Day of Your Exam A responsible family member or friend MUST come with you to your colonoscopy and REMAIN in the endoscopy area until you are discharged! You are NOT ALLOWED to drive, take a taxi or bus, or leave the Endoscopy Center ALONE. If you do not have a responsible maintenance truck driver (family member or friend) with you to take you home, your exam cannot be done with sedation and will be cancelled. Medications Some of the medicines you take may need to be stopped or adjusted before your colonoscopy. You MUST call the doctor who ordered any of the following medicines at least 2 weeks before your colonoscopy. ?Blood thinners -- such as Coumadin (warfarin), Plavix (clopidogrel), Ticlid (ticlopidine hydrochloride), Agrylin (anagrelide), Xarelto (Rivaroxaban), Pradaxa (Dabigatran), Eliquis (Apixaban), and Effient (Prasugrel). ?Insulin or diabetes pills. Please call the doctor that monitors your glucose levels. Your insulin dosage may need to be adjusted due to the diet restrictions required with this bowel preparation. (Please bring your diabetes medicines with you on the day of your procedure.) If you take aspirin, take it and ALL other medications prescribed by your doctor. On the day of your colonoscopy, take your medications with a sip of water. Revised 10/2016 1 Five (5) Days Before Your Colonoscopy ?Do NOT take medicines that stop diarrhea -- such as Imodium , Kaopectate , or Pepto Bismol . ?Do NOT take fiber supplements -- such as Metamucil , Citrucel , or Perdiem . ?Do NOT take products that contain iron -- such as multi-vitamins -- (the label lists what is in the products). ?Do NOT take vitamin E. Buy the prescription bowel preparation solution at your local pharmacy or drugstore pharmacy. Three (3) Days Before Your Colonoscopy Do NOT eat high-fiber foods -- such as popcorn, beans, seeds (flax, sunflower, quinoa), multigrain bread, nuts, salad/vegetables, or fresh and dried fruit. One (1) Day Before Your Colonoscopy Only drink clear liquids the ENTIRE DAY before your colonoscopy. Do NOT eat any solid foods. Drink at least 8 ounces of clear liquids every hour after waking up. The clear liquids you can drink include: ?water, apple, or white grape juice; broth; coffee or tea (without milk or creamer); clear carbonated beverages such as vinita adriana or lemon-platinum soda; Gatorade or other sports drinks (not red); Luis Felipe-Aid or other flavored drinks (not red). You may eat plain jello or other gelatins (not red) or popsicles (not red). Do NOT drink alcohol on the day before or the day of the procedure. 2 Revised 10/2016 When to Mix and Drink Your Bowel Prep Follow the instructions on the label. After mixing, place the solution in the refrigerator for a couple of hours before drinking. You may add the flavor packet that came with the bowel preparation. DO NOT add ice, sugar or any flavorings to the solution. Evening Before Your Colonoscopy ?Start drinking the bowel preparation at 6 PM the evening before your colonoscopy. Drink an 8-oz glass of bowel preparation every 10 minutes. You must finish drinking the solution by 9 PM the night before your scheduled procedure. ?You may continue to drink clear liquids only until midnight. Do NOT eat or drink ANYTHING after midnight the night before your procedure or your procedure may be cancelled. This is for your safety and will reduce the risk of having any food or liquid in your stomach move into your lungs (aspiration) during a procedure. If you take aspirin, take it and ALL other prescribed medicines with a sip of water on the day of your colonoscopy. Contact Information: If you are unable to keep your appointment or have any questions about the instructions, please call the facility where the procedure is being performed. Call between the hours of 8:00 AM and 5:00 PM. If you are calling after 5:00 PM, please call Nurse chief innovation officer at [phone]. [facility] [address] [place] [id number] Index # [id number] Revised 10/2016 3 Colonoscopy Procedure Overview Please Read Prior to the Procedure What is a Colonoscopy A colonoscopy is an outpatient procedure in which the inside of the large intestine (colon and rectum) is examined. A colonoscopy is commonly used to evaluate gastrointestinal symptoms, such as rectal and intestinal bleeding, abdominal pain, or changes in bowel habits. Colonoscopies are also performed in individuals without symptoms to check for colorectal polyps or cancer. A screening colonoscopy is recommended for anyone 50 years of age and older, and for anyone with parents, siblings or children with a history of colorectal cancer or polyps. What Happens Before a Colonoscopy To have a successful colonoscopy, your bowel must be empty so that your physician can clearly view the colon. To do this, it is very important to read and follow all of the instructions given to you at least 2 weeks BEFORE your exam. If your bowel is not empty, your colonoscopy will not be successful and may have to be repeated. If you feel nauseated or vomit while taking the bowel preparation, wait 30 minutes before drinking more fluid and start with small sips of solution. Some activity (such as walking) or a few soda crackers may help decrease the nausea you are feeling. If the nausea persists, please contact nurse aluminum fabrication supervisor at [phone]. You may experience skin irritation around the anus due to the passage of liquid stools. To prevent and treat skin irritation, you should: ?Apply Vaseline or Desitin ointment to the skin around the anus before drinking the bowel preparation medications. These products can be purchased at any [employer]. ?Wipe the skin after each bowel movement with disposable wet wipes instead of toilet paper. These are found in the toilet paper area of the store. ?Sit in a bathtub filled with warm water for 10 to 15 minutes after you finish passing a stool; after soaking, blot the skin dry with a soft cloth, apply Vaseline or Desitin ointment to the anal area, and place a cotton ball just outside your anus to absorb leaking fluid. What Happens During a Colonoscopy During a colonoscopy, an experienced physician uses a colonoscope (a long, flexible instrument about 1/2 inch in diameter) to view the lining of the colon. The colonoscope is inserted into the rectum and advanced through the large intestine. If necessary during a colonoscopy, small amounts of tissue can be removed for analysis (a biopsy) and polyps can be identified and entirely removed. In many cases, a colonoscopy allows accurate diagnosis and treatment of colorectal problems without the need for a major operation. Revised 10/2016 5 ?You are asked to wear a hospital gown and an IV will be started. ?You are given a pain reliever and a sedative intravenously (in your vein). You will feel relaxed and somewhat drowsy. ?You will lie on your left side, with your knees drawn up towards your chest. ?A small amount of air is used to expand the colon so the physician can see the colon chávez. ?You may feel mild cramping during the procedure. Cramping can be reduced by taking slow, deep breaths. ?The colonoscope is slowly withdrawn while the lining of your bowel is carefully examined. ?The procedure lasts from 30 minutes to 1 hour. What Happens After a Colonoscopy ?You will stay in a recovery room for observation until you are ready for discharge. ?You may feel some cramping or a sensation of having gas, but this quickly passes. ?If sedation has been given, a responsible family member or friend must drive you home. ?Avoid alcohol, driving, and operating machinery for 24 hours following the procedure. ?Unless otherwise instructed, you may immediately return to your normal diet. We recommend you wait until the day after your procedure to resume normal activities. ?If polyps were removed or a biopsy was taken, the physician performing your colonoscopy will tell you when it is safe to resume taking your blood thinners. ?If a biopsy was taken or a polyp was removed, you may notice a little amount of rectal bleeding for 1 to 2 days after the procedure. If you have a large amount of rectal bleeding, high or persistent fevers, or severe abdominal pain within the next 2 weeks, please go to your local emergency room and call the physician who performed your exam. 6 Revised 10/2016 Copyright [id number] [facility]. All rights reserved. Revised 10/2016 Miralax/Dulcolax Bowel Prep For this bowel preparation, you will need to purchase the following medications at any pharmacy: Over the counter Miralax (generic name is polyethylene glycol) 8.3 oz or 238 grams Four (4) Dulcolax (generic name is Bisacodyl) tablets 3 days prior to your procedure, you need to be on a low fiber diet (Such as popcorn, beans, seeds, nuts, salad and raw vegetables, corn, fresh and dried fruit and multi-grain bread) YOU MUST BE ON CLEAR LIQUIDS FOR 2 FULL DAYS PRIOR TO YOUR COLONOSCOPY Day one which would be two days before your colonoscopy, you will need to be on clear liquids all day. You may have coffee or tea-black only (no cream), clear broths (beef, chicken or vegetable), apple juice, white grape juice, pop, Gatorade, Powerade, lemonade, Jello, popsicles, Luis Felipe-aid, and water-But nothing red or dark purple in color and no dairy products, tomato or orange juices. Day two which would be the day before your colonoscopy continue clear liquids all day as above. And follow the instructions below: 8:00 AM - Mix the Miralax with 64 oz of Gatorade or another clear liquid of choice and place in refrigerator. Most people say the drink is better cold. 4:00 PM - Take 2 of the Dulcolax tablets with 8 oz of water. 6:00 PM - Start to drink the Miralax mixture. You must finish it by midnight. 8:00 PM - Take the other 2 Dulcolax tablets with 8 oz of water. You may continue to drink clear liquids while you are taking your prep and after you finish it as long as it is before midnight. Drink lots of fluids so you don t become dehydrated. Nothing to drink after midnight the night before the procedure unless you are instructed differently by the physician or nurses. Please remember to take your normal medications the morning of the procedure with a small sip of water especially your blood pressure medications. If you are diabetic, you need to contact your physician about how to take your diabetic medications and/or insulin during the prepping period and the day of your procedure. Any questions please call: Dr. Pires or Dr. Peguero [phone] Mirtha Weinstein [phone] Dr. Vasquez [phone] [facility] nurses [phone] documented in this encounter [facility] Evaluation note No assessment inform ation available [facility] Work Phone: Evaluation note Diagnosis Encounter for gynecological examination without abnormal finding- Primary Routine gynecological examination Encounter for screening mammogram for malignant neoplasm of breast Other screening mammogram Special screening examination for human papillomavirus (HPV) Screening for cervical cancer Screening for malignant neoplasm of the cervix Need for influenza vaccination Need for prophylactic vaccination and inoculation against influenza Special screening for malignant neoplasms, colon [facility] Diagnosis Onset Date Resolution Status Ankle impingement syndrome, right acute Ingrowing nail acute Primary osteoarthritis, right ankle and foot acute Right ankle instability acut e [facility] Work Phone: Evaluation note* Diagnosis Onset Date Resolution Status Mechanical pain of left knee acute Internal derangement of knee noneactive [facility] Work Phone: Evaluation note* Diagnosis Onset Date Resolution Status Hyperlipidemia acute [facility] Work Phone: Evaluation note* Diagnosis Symptomatic varicose veins of both lower extremities- Primary Varicose veins of lower extremities with other complications [facility] Diagnosis Symptomatic varicose veins of both lower extremities- Primary Varicose veins of lower extremities with other complications [facility] Diagnosis Symptomatic varicose veins of both lower extremities- Primary Varicose veins of lower extremities with other complications [facility] Diagnosis Symptomatic varicose veins of both lower extremities Varicose veins of lower extremities with other complications [facility] Diagnosis Symptomatic varicose veins of both lower extremities- Primary Varicose veins of lower extremities with other complications [facility] Diagnosis Symptomatic varicose veins of both lower extremities- Primary Varicose veins of lower extremities with other complications [facility] Diagnosis Secondary lymphedema- Primary Other lymphedema Venous (peripheral) insufficiency Unspecified venous (peripheral) insufficiency [facility] Diagnosis Secondary lymphedema- Primary Other lymphedema Venous (peripheral) insufficiency Unspecified venous (peripheral) insufficiency [facility] Diagnosis Symptomatic varicose veins of both lower extremities- Primary Varicose veins of lower extremities with other complications [facility] Diagnosis Venous (peripheral) insufficiency- Primary Unspecified venous (peripheral) insufficiency Secondary lymphedema Other lymphedema [facility] Diagnosis Encounter for IUD removal- Primary Encounter for removal of intrauterine contraceptive device [facility] Diagnosis Encounter for gynecological examination (general) (routine) without abnormal findings- Primary Encounter for IUD removal Encounter for removal of intrauterine contraceptive device Encounter for screening for human papillomavirus (HPV) Special screening examination for human papillomavirus (HPV) Pap smear for cervical cancer screening Screening for malignant neoplasm of the cervix [facility] Additional Instructions Patient will keep dressing clean dry and intact to right lower extremity. Patient remain nonweightbearing for the next 2 weeks assisted by crutches or knee scooter. Patient should elevate her right lower extremity above the level of her heart while at rest. Patient should ice behind the knee 3 times a day for 15 minutes. Patient will take prescriptions as directed. Patient will follow up in 1 week at which time we will change the dressing. She should call our office if any concerns of infection or signs of DVT. Patient has been educated on this Implant Used?: Yes [employer] internal [facility] Work Phone: Instructions* Name Dates Details Patient Instructions Indication:Nonsmoker Start:15-Jul-2021 Instruction Type:Provider Instructions for Treatment How to Access Health Informa tion Online using Patient Portal and [employer] Apps Indication:Nonsmoker Start:15-Jul-2021 Instruction Type:Patient Education How to access health informa tion online Indication:Nonsmoker Start:20-Aug-2020 Instruction Type:Patient Education How to access health informa tion online - Detail Indication:Nonsmoker Start:20-Aug-2020 Instruction Type:Patient Education Patient Instructions Indication:Nonsmoker Start:20-Aug-2020 Instruction Type:Provider Instructions for Treatment How to access health informa tion online Indication:Nonsmoker Start:16-Apr-2020 Instruction Type:Patient Education How to access health informa tion online - Detail Indication:Nonsmoker Start:16-Apr-2020 Instruction Type:Patient Education Patient Instructions Indication:BMI 39.0-39.9,adult Start:16-Apr-2020 Instruction Type:Provider Instructions for Treatment How to access health informa tion online Indication:Nonsmoker Start:15-Nov-2019 Instruction Type:Patient Education How to access health informa tion online - Detail Indication:Nonsmoker Start:15-Nov-2019 Instruction Type:Patient Education Patient Instructions Indication:Recurrent cold sores Start:15-Nov-2019 Instruction Type:Provider Instructions for Treatment How to access health informa tion online Indication:Nonsmoker Start:01-Aug-2019 Instruction Type:Patient Education How to access health informa tion online - Detail Indication:Nonsmoker Start:01-Aug-2019 Instruction Type:Patient Education Patient Instructions Indication:BMI 39.0-39.9,adult Start:01-Aug-2019 Instruction Type:Provider Instructions for Treatment How to access health informa tion online Indication:Nonsmoker Start:18-Jul-2019 Instruction Type:Patient Education How to access health informa tion online - Detail Indication:Nonsmoker Start:18-Jul-2019 Instruction Type:Patient Education Patient Instructions Indication:Nonsmoker Start:18-Jul-2019 Instruction Type:Provider Instructions for Treatment How to access health informa tion online Indication:BMI 40.0-44.9, adult Start:27-Jun-2019 Instruction Type:Patient Education How to access health informa tion online - Detail Indication:BMI 40.0-44.9, adult Start:27-Jun-2019 Instruction Type:Patient Education Patient Instructions Indication:SOB (shortness of breath) Start:27-Jun-2019 Instruction Type:Provider Instructions for Treatment How to access health informa tion online Indication:Nonsmoker Start:27-Apr-2019 Instruction Type:Patient Education How to access health informa tion online - Detail Indication:Nonsmoker Start:27-Apr-2019 Instruction Type:Patient Education Patient Instructions Indication:Nonsmoker Start:27-Apr-2019 Instruction Type:Provider Instructions for Treatment How to access health informa tion online Indication:Nonsmoker Start:29-Dec-2018 Instruction Type:Patient Education How to access health informa tion online - Detail Indication:Nonsmoker Start:29-Dec-2018 Instruction Type:Patient Education Patient Instructions Indication:Nonsmoker Start:29-Dec-2018 Instruction Type:Provider Instructions for Treatment DISCONTINUED - TSH (THYROID STIMULATING HORMONE) (04978) Indication:Intrinsic asthma Start:09-Aug-2018 Instruction Type:Patient Education DISCONTINUED - METABOLIC MANRIQUE EL, COMPREHENSIVE (23608) Indication:GERD (gastroesophageal reflux disease) Start:09-Aug-2018 Instruction Type:Patient Education DISCONTINUED - CBC, PLATELET S & MANUAL DIFF (67629) Indication:GERD (gastroesophageal reflux disease) Start:09-Aug-2018 Instruction Type:Patient Education How to access health informa tion online Indication:Nonsmoker Start:09-Aug-2018 Instruction Type:Patient Education How to access health informa tion online - Detail Indication:Nonsmoker Start:09-Aug-2018 Instruction Type:Patient Education Patient Instructions Indication:Encounter for screening for lipid disorder Start:09-Aug-2018 Instruction Type:Provider Instructions for Treatment How to access health informa tion online Indication:BMI 37.0-37.9, adult Start:29-Sep-2017 Instruction Type:Patient Education How to access health informa tion online - Detail Indication:BMI 37.0-37.9, adult Start:29-Sep-2017 Instruction Type:Patient Education Patient Instructions Indication:BMI 37.0-37.9, adult Start:29-Sep-2017 Instruction Type:Provider Instructions for Treatment How to access health informa tion online Indication:BMI 39.0-39.9,adult Start:01-Sep-2017 Instruction Type:Patient Education How to access health informa tion online - Detail Indication:BMI 39.0-39.9,adult Start:01-Sep-2017 Instruction Type:Patient Education Patient Instructions Indication:Upper respiratory virus Start:01-Sep-2017 Instruction Type:Provider Instructions for Treatment How to access health informa tion online Indication:Nonsmoker Start:03-Jul-2017 Instruction Type:Patient Education How to access health informa tion online - Detail Indication:Nonsmoker Start:03-Jul-2017 Instruction Type:Patient Education Patient Instructions Indication:Nonsmoker Start:03-Jul-2017 Instruction Type:Provider Instructions for Treatment How to access health informa tion online Indication:Impaired fasting glucose Start:09-Mar-2017 Instruction Type:Patient Education How to access health informa tion online - Detail Indication:Impaired fasting glucose Start:09-Mar-2017 Instruction Type:Patient Education Patient Instructions Indication:Impaired fasting glucose Start:09-Mar-2017 Instruction Type:Provider Instructions for Treatment How to access health informa tion online Indication:Intrinsic asthma Start:19-Nov-2016 Instruction Type:Patient Education How to access health informa tion online - Detail Indication:Intrinsic asthma Start:19-Nov-2016 Instruction Type:Patient Education Patient Instructions Indication:Intrinsic asthma Start:19-Nov-2016 Instruction Type:Provider Instructions for Treatment How to access health informa tion online Indication:Vitamin D deficiency, unspecified Start:21-Jul-2016 Instruction Type:Patient Education How to access health informa tion online - Detail Indication:Vitamin D deficiency, unspecified Start:21-Jul-2016 Instruction Type:Patient Education Patient Instructions Indication:Vitamin D deficiency, unspecified Start:21-Jul-2016 Instruction Type:Provider Instructions for Treatment How to access health informa tion online Indication:Vitamin D deficiency, unspecified Start:01-Feb-2016 Instruction Type:Patient Education How to access health informa tion online - Detail Indication:Vitamin D deficiency, unspecified Start:01-Feb-2016 Instruction Type:Patient Education Patient Instructions Indication:Vitamin D deficiency, unspecified Start:01-Feb-2016 Instruction Type:Provider Instructions for Treatment How to access health informa tion online Indication:Unspecified asthma with (acute) exacerbation Start:04-Dec-2015 Instruction Type:Patient Education How to access health informa tion online - Detail Indication:Unspecified asthma with (acute) exacerbation Start:04-Dec-2015 Instruction Type:Patient Education Patient Instructions Indication:Unspecified asthma with (acute) exacerbation Start:04-Dec-2015 Instruction Type:Provider Instructions for Treatment How to access health informa tion online Indication:Recurrent cold sores Start:16-Oct-2015 Instruction Type:Patient Education How to access health informa tion online - Detail Indication:Recurrent cold sores Start:16-Oct-2015 Instruction Type:Patient Education Patient Instructions Indication:Recurrent cold sores Start:16-Oct-2015 Instruction Type:Provider Instructions for Treatment How to access health informa tion online Indication:Vitamin D deficiency, unspecified Start:16-Jul-2015 Instruction Type:Patient Education How to access health informa tion online - Detail Indication:Vitamin D deficiency, unspecified Start:16-Jul-2015 Instruction Type:Patient Education Patient Instructions Indication:Vitamin D deficiency, unspecified Start:16-Jul-2015 Instruction Type:Provider Instructions for Treatment How to access health informa tion online - Detail Indication:Obesity Start:16-Apr-2015 Instruction Type:Patient Education Patient Instructions Indication:Obesity Start:16-Apr-2015 Instruction Type:Provider Instructions for Treatment How to access health informa tion online Indication:Subcutaneous nodule Start:19-Mar-2015 Instruction Type:Patient Education How to access health informa tion online - Detail Indication:Subcutaneous nodule Start:19-Mar-2015 Instruction Type:Patient Education Patient Instructions Indication:Subcutaneous nodule Start:19-Mar-2015 Instruction Type:Provider Instructions for Treatment How to access health informa tion online Indication:Vitamin D deficiency, unspecified Start:22-Jan-2015 Instruction Type:Patient Education How to access health informa tion online - Detail Indication:Vitamin D deficiency, unspecified Start:22-Jan-2015 Instruction Type:Patient Education Patient Instructions Indication:Vitamin D deficiency, unspecified Start:22-Jan-2015 Instruction Type:Provider Instructions for Treatment Patient Instructions Indication:Obesity Start:29-Sep-2013 Instruction Type:Provider Instructions for Treatment Patient Instructions Indication:Fatigue Start:18-Jun-2012 Instruction Type:Provider Instructions for Treatment [facility] Work Phone: Instructions* Name Dates Details Patient Instructions Indication:Nonsmoker Start:15-Jul-2021 Instruction Type:Provider Instructions for Treatment How to Access Health Informa tion Online using Patient Portal and [employer] Indication:Nonsmoker Start:15-Jul-2021 Instruction Type:Patient Education How to access health informa tion online Indication:Nonsmoker Start:20-Aug-2020 Instruction Type:Patient Education How to access health informa tion online - Detail Indication:Nonsmoker Start:20-Aug-2020 Instruction Type:Patient Education Patient Instructions Indication:Nonsmoker Start:20-Aug-2020 Instruction Type:Provider Instructions for Treatment How to access health informa tion online Indication:Nonsmoker Start:16-Apr-2020 Instruction Type:Patient Education How to access health informa tion online - Detail Indication:Nonsmoker Start:16-Apr-2020 Instruction Type:Patient Education Patient Instructions Indication:BMI 39.0-39.9,adult Start:16-Apr-2020 Instruction Type:Provider Instructions for Treatment How to access health informa tion online Indication:Nonsmoker Start:15-Nov-2019 Instruction Type:Patient Education How to access health informa tion online - Detail Indication:Nonsmoker Start:15-Nov-2019 Instruction Type:Patient Education Patient Instructions Indication:Recurrent cold sores Start:15-Nov-2019 Instruction Type:Provider Instructions for Treatment How to access health informa tion online Indication:Nonsmoker Start:01-Aug-2019 Instruction Type:Patient Education How to access health informa tion online - Detail Indication:Nonsmoker Start:01-Aug-2019 Instruction Type:Patient Education Patient Instructions Indication:BMI 39.0-39.9,adult Start:01-Aug-2019 Instruction Type:Provider Instructions for Treatment How to access health informa tion online Indication:Nonsmoker Start:18-Jul-2019 Instruction Type:Patient Education How to access health informa tion online - Detail Indication:Nonsmoker Start:18-Jul-2019 Instruction Type:Patient Education Patient Instructions Indication:Nonsmoker Start:18-Jul-2019 Instruction Type:Provider Instructions for Treatment How to access health informa tion online Indication:BMI 40.0-44.9, adult Start:27-Jun-2019 Instruction Type:Patient Education How to access health informa tion online - Detail Indication:BMI 40.0-44.9, adult Start:27-Jun-2019 Instruction Type:Patient Education Patient Instructions Indication:SOB (shortness of breath) Start:27-Jun-2019 Instruction Type:Provider Instructions for Treatment How to access health informa tion online Indication:Nonsmoker Start:27-Apr-2019 Instruction Type:Patient Education How to access health informa tion online - Detail Indication:Nonsmoker Start:27-Apr-2019 Instruction Type:Patient Education Patient Instructions Indication:Nonsmoker Start:27-Apr-2019 Instruction Type:Provider Instructions for Treatment How to access health informa tion online Indication:Nonsmoker Start:29-Dec-2018 Instruction Type:Patient Education How to access health informa tion online - Detail Indication:Nonsmoker Start:29-Dec-2018 Instruction Type:Patient Education Patient Instructions Indication:Nonsmoker Start:29-Dec-2018 Instruction Type:Provider Instructions for Treatment DISCONTINUED - TSH (THYROID STIMULATING HORMONE) (01802) Indication:Intrinsic asthma Start:09-Aug-2018 Instruction Type:Patient Education DISCONTINUED - METABOLIC MANRIQUE EL, COMPREHENSIVE (99642) Indication:GERD (gastroesophageal reflux disease) Start:09-Aug-2018 Instruction Type:Patient Education DISCONTINUED - CBC, PLATELET S & MANUAL DIFF (98544) Indication:GERD (gastroesophageal reflux disease) Start:09-Aug-2018 Instruction Type:Patient Education How to access health informa tion online Indication:Nonsmoker Start:09-Aug-2018 Instruction Type:Patient Education How to access health informa tion online - Detail Indication:Nonsmoker Start:09-Aug-2018 Instruction Type:Patient Education Patient Instructions Indication:Encounter for screening for lipid disorder Start:09-Aug-2018 Instruction Type:Provider Instructions for Treatment How to access health informa tion online Indication:BMI 37.0-37.9, adult Start:29-Sep-2017 Instruction Type:Patient Education How to access health informa tion online - Detail Indication:BMI 37.0-37.9, adult Start:29-Sep-2017 Instruction Type:Patient Education Patient Instructions Indication:BMI 37.0-37.9, adult Start:29-Sep-2017 Instruction Type:Provider Instructions for Treatment How to access health informa tion online Indication:BMI 39.0-39.9,adult Start:01-Sep-2017 Instruction Type:Patient Education How to access health informa tion online - Detail Indication:BMI 39.0-39.9,adult Start:01-Sep-2017 Instruction Type:Patient Education Patient Instructions Indication:Upper respiratory virus Start:01-Sep-2017 Instruction Type:Provider Instructions for Treatment How to access health informa tion online Indication:Nonsmoker Start:03-Jul-2017 Instruction Type:Patient Education How to access health informa tion online - Detail Indication:Nonsmoker Start:03-Jul-2017 Instruction Type:Patient Education Patient Instructions Indication:Nonsmoker Start:03-Jul-2017 Instruction Type:Provider Instructions for Treatment How to access health informa tion online Indication:Impaired fasting glucose Start:09-Mar-2017 Instruction Type:Patient Education How to access health informa tion online - Detail Indication:Impaired fasting glucose Start:09-Mar-2017 Instruction Type:Patient Education Patient Instructions Indication:Impaired fasting glucose Start:09-Mar-2017 Instruction Type:Provider Instructions for Treatment How to access health informa tion online Indication:Intrinsic asthma Start:19-Nov-2016 Instruction Type:Patient Education How to access health informa tion online - Detail Indication:Intrinsic asthma Start:19-Nov-2016 Instruction Type:Patient Education Patient Instructions Indication:Intrinsic asthma Start:19-Nov-2016 Instruction Type:Provider Instructions for Treatment How to access health informa tion online Indication:Vitamin D deficiency, unspecified Start:21-Jul-2016 Instruction Type:Patient Education How to access health informa tion online - Detail Indication:Vitamin D deficiency, unspecified Start:21-Jul-2016 Instruction Type:Patient Education Patient Instructions Indication:Vitamin D deficiency, unspecified Start:21-Jul-2016 Instruction Type:Provider Instructions for Treatment How to access health informa tion online Indication:Vitamin D deficiency, unspecified Start:01-Feb-2016 Instruction Type:Patient Education How to access health informa tion online - Detail Indication:Vitamin D deficiency, unspecified Start:01-Feb-2016 Instruction Type:Patient Education Patient Instructions Indication:Vitamin D deficiency, unspecified Start:01-Feb-2016 Instruction Type:Provider Instructions for Treatment How to access health informa tion online Indication:Unspecified asthma with (acute) exacerbation Start:04-Dec-2015 Instruction Type:Patient Education How to access health informa tion online - Detail Indication:Unspecified asthma with (acute) exacerbation Start:04-Dec-2015 Instruction Type:Patient Education Patient Instructions Indication:Unspecified asthma with (acute) exacerbation Start:04-Dec-2015 Instruction Type:Provider Instructions for Treatment How to access health informa tion online Indication:Recurrent cold sores Start:16-Oct-2015 Instruction Type:Patient Education How to access health informa tion online - Detail Indication:Recurrent cold sores Start:16-Oct-2015 Instruction Type:Patient Education Patient Instructions Indication:Recurrent cold sores Start:16-Oct-2015 Instruction Type:Provider Instructions for Treatment How to access health informa tion online Indication:Vitamin D deficiency, unspecified Start:16-Jul-2015 Instruction Type:Patient Education How to access health informa tion online - Detail Indication:Vitamin D deficiency, unspecified Start:16-Jul-2015 Instruction Type:Patient Education Patient Instructions Indication:Vitamin D deficiency, unspecified Start:16-Jul-2015 Instruction Type:Provider Instructions for Treatment How to access health informa tion online - Detail Indication:Obesity Start:16-Apr-2015 Instruction Type:Patient Education Patient Instructions Indication:Obesity Start:16-Apr-2015 Instruction Type:Provider Instructions for Treatment How to access health informa tion online Indication:Subcutaneous nodule Start:19-Mar-2015 Instruction Type:Patient Education How to access health informa tion online - Detail Indication:Subcutaneous nodule Start:19-Mar-2015 Instruction Type:Patient Education Patient Instructions Indication:Subcutaneous nodule Start:19-Mar-2015 Instruction Type:Provider Instructions for Treatment How to access health informa tion online Indication:Vitamin D deficiency, unspecified Start:22-Jan-2015 Instruction Type:Patient Education How to access health informa tion online - Detail Indication:Vitamin D deficiency, unspecified Start:22-Jan-2015 Instruction Type:Patient Education Patient Instructions Indication:Vitamin D deficiency, unspecified Start:22-Jan-2015 Instruction Type:Provider Instructions for Treatment Patient Instructions Indication:Obesity Start:29-Sep-2013 Instruction Type:Provider Instructions for Treatment Patient Instructions Indication:Fatigue Start:18-Jun-2012 Instruction Type:Provider Instructions for Treatment [facility]; [facility] Work Phone: Instructions* Name Dates Details Patient Instructions Indication:BMI 37.0-37.9, adult Start:30-Apr-2022 Instruction Type:Provider Instructions for Treatment How to Access Health Informa tion Online using Patient Portal and [employer]rd [employer] Apps Indication:BMI 37.0-37.9, adult Start:30-Apr-2022 Instruction Type:Patient Education Patient Instructions Indication:Nonsmoker Start:15-Jul-2021 Instruction Type:Provider Instructions for Treatment How to Access Health Informa tion Online using Patient Portal and [employer]rd [employer] Apps Indication:Nonsmoker Start:15-Jul-2021 Instruction Type:Patient Education How to access health informa tion online Indication:Nonsmoker Start:20-Aug-2020 Instruction Type:Patient Education How to access health informa tion online - Detail Indication:Nonsmoker Start:20-Aug-2020 Instruction Type:Patient Education Patient Instructions Indication:Nonsmoker Start:20-Aug-2020 Instruction Type:Provider Instructions for Treatment How to access health informa tion online Indication:Nonsmoker Start:16-Apr-2020 Instruction Type:Patient Education How to access health informa tion online - Detail Indication:Nonsmoker Start:16-Apr-2020 Instruction Type:Patient Education Patient Instructions Indication:BMI 39.0-39.9,adult Start:16-Apr-2020 Instruction Type:Provider Instructions for Treatment How to access health informa tion online Indication:Nonsmoker Start:15-Nov-2019 Instruction Type:Patient Education How to access health informa tion online - Detail Indication:Nonsmoker Start:15-Nov-2019 Instruction Type:Patient Education Patient Instructions Indication:Recurrent cold sores Start:15-Nov-2019 Instruction Type:Provider Instructions for Treatment How to access health informa tion online Indication:Nonsmoker Start:01-Aug-2019 Instruction Type:Patient Education How to access health informa tion online - Detail Indication:Nonsmoker Start:01-Aug-2019 Instruction Type:Patient Education Patient Instructions Indication:BMI 39.0-39.9,adult Start:01-Aug-2019 Instruction Type:Provider Instructions for Treatment How to access health informa tion online Indication:Nonsmoker Start:18-Jul-2019 Instruction Type:Patient Education How to access health informa tion online - Detail Indication:Nonsmoker Start:18-Jul-2019 Instruction Type:Patient Education Patient Instructions Indication:Nonsmoker Start:18-Jul-2019 Instruction Type:Provider Instructions for Treatment How to access health informa tion online Indication:BMI 40.0-44.9, adult Start:27-Jun-2019 Instruction Type:Patient Education How to access health informa tion online - Detail Indication:BMI 40.0-44.9, adult Start:27-Jun-2019 Instruction Type:Patient Education Patient Instructions Indication:SOB (shortness of breath) Start:27-Jun-2019 Instruction Type:Provider Instructions for Treatment How to access health informa tion online Indication:Nonsmoker Start:27-Apr-2019 Instruction Type:Patient Education How to access health informa tion online - Detail Indication:Nonsmoker Start:27-Apr-2019 Instruction Type:Patient Education Patient Instructions Indication:Nonsmoker Start:27-Apr-2019 Instruction Type:Provider Instructions for Treatment How to access health informa tion online Indication:Nonsmoker Start:29-Dec-2018 Instruction Type:Patient Education How to access health informa tion online - Detail Indication:Nonsmoker Start:29-Dec-2018 Instruction Type:Patient Education Patient Instructions Indication:Nonsmoker Start:29-Dec-2018 Instruction Type:Provider Instructions for Treatment DISCONTINUED - TSH (THYROID STIMULATING HORMONE) (22438) Indication:Intrinsic asthma Start:09-Aug-2018 Instruction Type:Patient Education DISCONTINUED - METABOLIC MANRIQUE EL, COMPREHENSIVE (64810) Indication:GERD (gastroesophageal reflux disease) Start:09-Aug-2018 Instruction Type:Patient Education DISCONTINUED - CBC, PLATELET S & MANUAL DIFF (13547) Indication:GERD (gastroesophageal reflux disease) Start:09-Aug-2018 Instruction Type:Patient Education How to access health informa tion online Indication:Nonsmoker Start:09-Aug-2018 Instruction Type:Patient Education How to access health informa tion online - Detail Indication:Nonsmoker Start:09-Aug-2018 Instruction Type:Patient Education Patient Instructions Indication:Encounter for screening for lipid disorder Start:09-Aug-2018 Instruction Type:Provider Instructions for Treatment How to access health informa tion online Indication:BMI 37.0-37.9, adult Start:29-Sep-2017 Instruction Type:Patient Education How to access health informa tion online - Detail Indication:BMI 37.0-37.9, adult Start:29-Sep-2017 Instruction Type:Patient Education Patient Instructions Indication:BMI 37.0-37.9, adult Start:29-Sep-2017 Instruction Type:Provider Instructions for Treatment How to access health informa tion online Indication:BMI 39.0-39.9,adult Start:01-Sep-2017 Instruction Type:Patient Education How to access health informa tion online - Detail Indication:BMI 39.0-39.9,adult Start:01-Sep-2017 Instruction Type:Patient Education Patient Instructions Indication:Upper respiratory virus Start:01-Sep-2017 Instruction Type:Provider Instructions for Treatment How to access health informa tion online Indication:Nonsmoker Start:03-Jul-2017 Instruction Type:Patient Education How to access health informa tion online - Detail Indication:Nonsmoker Start:03-Jul-2017 Instruction Type:Patient Education Patient Instructions Indication:Nonsmoker Start:03-Jul-2017 Instruction Type:Provider Instructions for Treatment How to access health informa tion online Indication:Impaired fasting glucose Start:09-Mar-2017 Instruction Type:Patient Education How to access health informa tion online - Detail Indication:Impaired fasting glucose Start:09-Mar-2017 Instruction Type:Patient Education Patient Instructions Indication:Impaired fasting glucose Start:09-Mar-2017 Instruction Type:Provider Instructions for Treatment How to access health informa tion online Indication:Intrinsic asthma Start:19-Nov-2016 Instruction Type:Patient Education How to access health informa tion online - Detail Indication:Intrinsic asthma Start:19-Nov-2016 Instruction Type:Patient Education Patient Instructions Indication:Intrinsic asthma Start:19-Nov-2016 Instruction Type:Provider Instructions for Treatment How to access health informa tion online Indication:Vitamin D deficiency, unspecified Start:21-Jul-2016 Instruction Type:Patient Education How to access health informa tion online - Detail Indication:Vitamin D deficiency, unspecified Start:21-Jul-2016 Instruction Type:Patient Education Patient Instructions Indication:Vitamin D deficiency, unspecified Start:21-Jul-2016 Instruction Type:Provider Instructions for Treatment How to access health informa tion online Indication:Vitamin D deficiency, unspecified Start:01-Feb-2016 Instruction Type:Patient Education How to access health informa tion online - Detail Indication:Vitamin D deficiency, unspecified Start:01-Feb-2016 Instruction Type:Patient Education Patient Instructions Indication:Vitamin D deficiency, unspecified Start:01-Feb-2016 Instruction Type:Provider Instructions for Treatment How to access health informa tion online Indication:Unspecified asthma with (acute) exacerbation Start:04-Dec-2015 Instruction Type:Patient Education How to access health informa tion online - Detail Indication:Unspecified asthma with (acute) exacerbation Start:04-Dec-2015 Instruction Type:Patient Education Patient Instructions Indication:Unspecified asthma with (acute) exacerbation Start:04-Dec-2015 Instruction Type:Provider Instructions for Treatment How to access health informa tion online Indication:Recurrent cold sores Start:16-Oct-2015 Instruction Type:Patient Education How to access health informa tion online - Detail Indication:Recurrent cold sores Start:16-Oct-2015 Instruction Type:Patient Education Patient Instructions Indication:Recurrent cold sores Start:16-Oct-2015 Instruction Type:Provider Instructions for Treatment How to access health informa tion online Indication:Vitamin D deficiency, unspecified Start:16-Jul-2015 Instruction Type:Patient Education How to access health informa tion online - Detail Indication:Vitamin D deficiency, unspecified Start:16-Jul-2015 Instruction Type:Patient Education Patient Instructions Indication:Vitamin D deficiency, unspecified Start:16-Jul-2015 Instruction Type:Provider Instructions for Treatment How to access health informa tion online - Detail Indication:Obesity Start:16-Apr-2015 Instruction Type:Patient Education Patient Instructions Indication:Obesity Start:16-Apr-2015 Instruction Type:Provider Instructions for Treatment How to access health informa tion online Indication:Subcutaneous nodule Start:19-Mar-2015 Instruction Type:Patient Education How to access health informa tion online - Detail Indication:Subcutaneous nodule Start:19-Mar-2015 Instruction Type:Patient Education Patient Instructions Indication:Subcutaneous nodule Start:19-Mar-2015 Instruction Type:Provider Instructions for Treatment How to access health informa tion online Indication:Vitamin D deficiency, unspecified Start:22-Jan-2015 Instruction Type:Patient Education How to access health informa tion online - Detail Indication:Vitamin D deficiency, unspecified Start:22-Jan-2015 Instruction Type:Patient Education Patient Instructions Indication:Vitamin D deficiency, unspecified Start:22-Jan-2015 Instruction Type:Provider Instructions for Treatment Patient Instructions Indication:Obesity Start:29-Sep-2013 Instruction Type:Provider Instructions for Treatment Patient Instructions Indication:Fatigue Start:18-Jun-2012 Instruction Type:Provider Instructions for Treatment [facility]; [facility] Work Phone: Instructions* Name Dates Details Patient Instructions Indication:BMI 37.0-37.9, adult Start:30-Apr-2022 Instruction Type:Provider Instructions for Treatment How to Access Health Informa tion Online using Patient Portal and [employer]rd [employer] Apps Indication:BMI 37.0-37.9, adult Start:30-Apr-2022 Instruction Type:Patient Education Patient Instructions Indication:Nonsmoker Start:15-Jul-2021 Instruction Type:Provider Instructions for Treatment How to Access Health Informa tion Online using Patient Portal and [employer]rd [employer] Apps Indication:Nonsmoker Start:15-Jul-2021 Instruction Type:Patient Education How to access health informa tion online Indication:Nonsmoker Start:20-Aug-2020 Instruction Type:Patient Education How to access health informa tion online - Detail Indication:Nonsmoker Start:20-Aug-2020 Instruction Type:Patient Education Patient Instructions Indication:Nonsmoker Start:20-Aug-2020 Instruction Type:Provider Instructions for Treatment How to access health informa tion online Indication:Nonsmoker Start:16-Apr-2020 Instruction Type:Patient Education How to access health informa tion online - Detail Indication:Nonsmoker Start:16-Apr-2020 Instruction Type:Patient Education Patient Instructions Indication:BMI 39.0-39.9,adult Start:16-Apr-2020 Instruction Type:Provider Instructions for Treatment How to access health informa tion online Indication:Nonsmoker Start:15-Nov-2019 Instruction Type:Patient Education How to access health informa tion online - Detail Indication:Nonsmoker Start:15-Nov-2019 Instruction Type:Patient Education Patient Instructions Indication:Recurrent cold sores Start:15-Nov-2019 Instruction Type:Provider Instructions for Treatment How to access health informa tion online Indication:Nonsmoker Start:01-Aug-2019 Instruction Type:Patient Education How to access health informa tion online - Detail Indication:Nonsmoker Start:01-Aug-2019 Instruction Type:Patient Education Patient Instructions Indication:BMI 39.0-39.9,adult Start:01-Aug-2019 Instruction Type:Provider Instructions for Treatment How to access health informa tion online Indication:Nonsmoker Start:18-Jul-2019 Instruction Type:Patient Education How to access health informa tion online - Detail Indication:Nonsmoker Start:18-Jul-2019 Instruction Type:Patient Education Patient Instructions Indication:Nonsmoker Start:18-Jul-2019 Instruction Type:Provider Instructions for Treatment How to access health informa tion online Indication:BMI 40.0-44.9, adult Start:27-Jun-2019 Instruction Type:Patient Education How to access health informa tion online - Detail Indication:BMI 40.0-44.9, adult Start:27-Jun-2019 Instruction Type:Patient Education Patient Instructions Indication:SOB (shortness of breath) Start:27-Jun-2019 Instruction Type:Provider Instructions for Treatment How to access health informa tion online Indication:Nonsmoker Start:27-Apr-2019 Instruction Type:Patient Education How to access health informa tion online - Detail Indication:Nonsmoker Start:27-Apr-2019 Instruction Type:Patient Education Patient Instructions Indication:Nonsmoker Start:27-Apr-2019 Instruction Type:Provider Instructions for Treatment How to access health informa tion online Indication:Nonsmoker Start:29-Dec-2018 Instruction Type:Patient Education How to access health informa tion online - Detail Indication:Nonsmoker Start:29-Dec-2018 Instruction Type:Patient Education Patient Instructions Indication:Nonsmoker Start:29-Dec-2018 Instruction Type:Provider Instructions for Treatment DISCONTINUED - TSH (THYROID STIMULATING HORMONE) (36401) Indication:Intrinsic asthma Start:09-Aug-2018 Instruction Type:Patient Education DISCONTINUED - METABOLIC MANRIQUE EL, COMPREHENSIVE (90672) Indication:GERD (gastroesophageal reflux disease) Start:09-Aug-2018 Instruction Type:Patient Education DISCONTINUED - CBC, PLATELET S & MANUAL DIFF (76720) Indication:GERD (gastroesophageal reflux disease) Start:09-Aug-2018 Instruction Type:Patient Education How to access health informa tion online Indication:Nonsmoker Start:09-Aug-2018 Instruction Type:Patient Education How to access health informa tion online - Detail Indication:Nonsmoker Start:09-Aug-2018 Instruction Type:Patient Education Patient Instructions Indication:Encounter for screening for lipid disorder Start:09-Aug-2018 Instruction Type:Provider Instructions for Treatment How to access health informa tion online Indication:BMI 37.0-37.9, adult Start:29-Sep-2017 Instruction Type:Patient Education How to access health informa tion online - Detail Indication:BMI 37.0-37.9, adult Start:29-Sep-2017 Instruction Type:Patient Education Patient Instructions Indication:BMI 37.0-37.9, adult Start:29-Sep-2017 Instruction Type:Provider Instructions for Treatment How to access health informa tion online Indication:BMI 39.0-39.9,adult Start:01-Sep-2017 Instruction Type:Patient Education How to access health informa tion online - Detail Indication:BMI 39.0-39.9,adult Start:01-Sep-2017 Instruction Type:Patient Education Patient Instructions Indication:Upper respiratory virus Start:01-Sep-2017 Instruction Type:Provider Instructions for Treatment How to access health informa tion online Indication:Nonsmoker Start:03-Jul-2017 Instruction Type:Patient Education How to access health informa tion online - Detail Indication:Nonsmoker Start:03-Jul-2017 Instruction Type:Patient Education Patient Instructions Indication:Nonsmoker Start:03-Jul-2017 Instruction Type:Provider Instructions for Treatment How to access health informa tion online Indication:Impaired fasting glucose Start:09-Mar-2017 Instruction Type:Patient Education How to access health informa tion online - Detail Indication:Impaired fasting glucose Start:09-Mar-2017 Instruction Type:Patient Education Patient Instructions Indication:Impaired fasting glucose Start:09-Mar-2017 Instruction Type:Provider Instructions for Treatment How to access health informa tion online Indication:Intrinsic asthma Start:19-Nov-2016 Instruction Type:Patient Education How to access health informa tion online - Detail Indication:Intrinsic asthma Start:19-Nov-2016 Instruction Type:Patient Education Patient Instructions Indication:Intrinsic asthma Start:19-Nov-2016 Instruction Type:Provider Instructions for Treatment How to access health informa tion online Indication:Vitamin D deficiency, unspecified Start:21-Jul-2016 Instruction Type:Patient Education How to access health informa tion online - Detail Indication:Vitamin D deficiency, unspecified Start:21-Jul-2016 Instruction Type:Patient Education Patient Instructions Indication:Vitamin D deficiency, unspecified Start:21-Jul-2016 Instruction Type:Provider Instructions for Treatment How to access health informa tion online Indication:Vitamin D deficiency, unspecified Start:01-Feb-2016 Instruction Type:Patient Education How to access health informa tion online - Detail Indication:Vitamin D deficiency, unspecified Start:01-Feb-2016 Instruction Type:Patient Education Patient Instructions Indication:Vitamin D deficiency, unspecified Start:01-Feb-2016 Instruction Type:Provider Instructions for Treatment How to access health informa tion online Indication:Unspecified asthma with (acute) exacerbation Start:04-Dec-2015 Instruction Type:Patient Education How to access health informa tion online - Detail Indication:Unspecified asthma with (acute) exacerbation Start:04-Dec-2015 Instruction Type:Patient Education Patient Instructions Indication:Unspecified asthma with (acute) exacerbation Start:04-Dec-2015 Instruction Type:Provider Instructions for Treatment How to access health informa tion online Indication:Recurrent cold sores Start:16-Oct-2015 Instruction Type:Patient Education How to access health informa tion online - Detail Indication:Recurrent cold sores Start:16-Oct-2015 Instruction Type:Patient Education Patient Instructions Indication:Recurrent cold sores Start:16-Oct-2015 Instruction Type:Provider Instructions for Treatment How to access health informa tion online Indication:Vitamin D deficiency, unspecified Start:16-Jul-2015 Instruction Type:Patient Education How to access health informa tion online - Detail Indication:Vitamin D deficiency, unspecified Start:16-Jul-2015 Instruction Type:Patient Education Patient Instructions Indication:Vitamin D deficiency, unspecified Start:16-Jul-2015 Instruction Type:Provider Instructions for Treatment How to access health informa tion online - Detail Indication:Obesity Start:16-Apr-2015 Instruction Type:Patient Education Patient Instructions Indication:Obesity Start:16-Apr-2015 Instruction Type:Provider Instructions for Treatment How to access health informa tion online Indication:Subcutaneous nodule Start:19-Mar-2015 Instruction Type:Patient Education How to access health informa tion online - Detail Indication:Subcutaneous nodule Start:19-Mar-2015 Instruction Type:Patient Education Patient Instructions Indication:Subcutaneous nodule Start:19-Mar-2015 Instruction Type:Provider Instructions for Treatment How to access health informa tion online Indication:Vitamin D deficiency, unspecified Start:22-Jan-2015 Instruction Type:Patient Education How to access health informa tion online - Detail Indication:Vitamin D deficiency, unspecified Start:22-Jan-2015 Instruction Type:Patient Education Patient Instructions Indication:Vitamin D deficiency, unspecified Start:22-Jan-2015 Instruction Type:Provider Instructions for Treatment Patient Instructions Indication:Obesity Start:29-Sep-2013 Instruction Type:Provider Instructions for Treatment Patient Instructions Indication:Fatigue Start:18-Jun-2012 Instruction Type:Provider Instructions for Treatment [facility]; [facility] Work Phone: Instructions* Name Dates Details Patient Instructions Indication:BMI 37.0-37.9, adult Start:30-Apr-2022 Instruction Type:Provider Instructions for Treatment How to Access Health Informa tion Online using Patient Portal and [employer] Apps Indication:BMI 37.0-37.9, adult Start:30-Apr-2022 Instruction Type:Patient Education Patient Instructions Indication:Nonsmoker Start:15-Jul-2021 Instruction Type:Provider Instructions for Treatment How to Access Health Informa tion Online using Patient Portal and [employer] Apps Indication:Nonsmoker Start:15-Jul-2021 Instruction Type:Patient Education How to access health informa tion online Indication:Nonsmoker Start:20-Aug-2020 Instruction Type:Patient Education How to access health informa tion online - Detail Indication:Nonsmoker Start:20-Aug-2020 Instruction Type:Patient Education Patient Instructions Indication:Nonsmoker Start:20-Aug-2020 Instruction Type:Provider Instructions for Treatment How to access health informa tion online Indication:Nonsmoker Start:16-Apr-2020 Instruction Type:Patient Education How to access health informa tion online - Detail Indication:Nonsmoker Start:16-Apr-2020 Instruction Type:Patient Education Patient Instructions Indication:BMI 39.0-39.9,adult Start:16-Apr-2020 Instruction Type:Provider Instructions for Treatment How to access health informa tion online Indication:Nonsmoker Start:15-Nov-2019 Instruction Type:Patient Education How to access health informa tion online - Detail Indication:Nonsmoker Start:15-Nov-2019 Instruction Type:Patient Education Patient Instructions Indication:Recurrent cold sores Start:15-Nov-2019 Instruction Type:Provider Instructions for Treatment How to access health informa tion online Indication:Nonsmoker Start:01-Aug-2019 Instruction Type:Patient Education How to access health informa tion online - Detail Indication:Nonsmoker Start:01-Aug-2019 Instruction Type:Patient Education Patient Instructions Indication:BMI 39.0-39.9,adult Start:01-Aug-2019 Instruction Type:Provider Instructions for Treatment How to access health informa tion online Indication:Nonsmoker Start:18-Jul-2019 Instruction Type:Patient Education How to access health informa tion online - Detail Indication:Nonsmoker Start:18-Jul-2019 Instruction Type:Patient Education Patient Instructions Indication:Nonsmoker Start:18-Jul-2019 Instruction Type:Provider Instructions for Treatment How to access health informa tion online Indication:BMI 40.0-44.9, adult Start:27-Jun-2019 Instruction Type:Patient Education How to access health informa tion online - Detail Indication:BMI 40.0-44.9, adult Start:27-Jun-2019 Instruction Type:Patient Education Patient Instructions Indication:SOB (shortness of breath) Start:27-Jun-2019 Instruction Type:Provider Instructions for Treatment How to access health informa tion online Indication:Nonsmoker Start:27-Apr-2019 Instruction Type:Patient Education How to access health informa tion online - Detail Indication:Nonsmoker Start:27-Apr-2019 Instruction Type:Patient Education Patient Instructions Indication:Nonsmoker Start:27-Apr-2019 Instruction Type:Provider Instructions for Treatment How to access health informa tion online Indication:Nonsmoker Start:29-Dec-2018 Instruction Type:Patient Education How to access health informa tion online - Detail Indication:Nonsmoker Start:29-Dec-2018 Instruction Type:Patient Education Patient Instructions Indication:Nonsmoker Start:29-Dec-2018 Instruction Type:Provider Instructions for Treatment DISCONTINUED - TSH (THYROID STIMULATING HORMONE) (23635) Indication:Intrinsic asthma Start:09-Aug-2018 Instruction Type:Patient Education DISCONTINUED - METABOLIC MANRIQUE EL, COMPREHENSIVE (80580) Indication:GERD (gastroesophageal reflux disease) Start:09-Aug-2018 Instruction Type:Patient Education DISCONTINUED - CBC, PLATELET S & MANUAL DIFF (86010) Indication:GERD (gastroesophageal reflux disease) Start:09-Aug-2018 Instruction Type:Patient Education How to access health informa tion online Indication:Nonsmoker Start:09-Aug-2018 Instruction Type:Patient Education How to access health informa tion online - Detail Indication:Nonsmoker Start:09-Aug-2018 Instruction Type:Patient Education Patient Instructions Indication:Encounter for screening for lipid disorder Start:09-Aug-2018 Instruction Type:Provider Instructions for Treatment How to access health informa tion online Indication:BMI 37.0-37.9, adult Start:29-Sep-2017 Instruction Type:Patient Education How to access health informa tion online - Detail Indication:BMI 37.0-37.9, adult Start:29-Sep-2017 Instruction Type:Patient Education Patient Instructions Indication:BMI 37.0-37.9, adult Start:29-Sep-2017 Instruction Type:Provider Instructions for Treatment How to access health informa tion online Indication:BMI 39.0-39.9,adult Start:01-Sep-2017 Instruction Type:Patient Education How to access health informa tion online - Detail Indication:BMI 39.0-39.9,adult Start:01-Sep-2017 Instruction Type:Patient Education Patient Instructions Indication:Upper respiratory virus Start:01-Sep-2017 Instruction Type:Provider Instructions for Treatment How to access health informa tion online Indication:Nonsmoker Start:03-Jul-2017 Instruction Type:Patient Education How to access health informa tion online - Detail Indication:Nonsmoker Start:03-Jul-2017 Instruction Type:Patient Education Patient Instructions Indication:Nonsmoker Start:03-Jul-2017 Instruction Type:Provider Instructions for Treatment How to access health informa tion online Indication:Impaired fasting glucose Start:09-Mar-2017 Instruction Type:Patient Education How to access health informa tion online - Detail Indication:Impaired fasting glucose Start:09-Mar-2017 Instruction Type:Patient Education Patient Instructions Indication:Impaired fasting glucose Start:09-Mar-2017 Instruction Type:Provider Instructions for Treatment How to access health informa tion online Indication:Intrinsic asthma Start:19-Nov-2016 Instruction Type:Patient Education How to access health informa tion online - Detail Indication:Intrinsic asthma Start:19-Nov-2016 Instruction Type:Patient Education Patient Instructions Indication:Intrinsic asthma Start:19-Nov-2016 Instruction Type:Provider Instructions for Treatment How to access health informa tion online Indication:Vitamin D deficiency, unspecified Start:21-Jul-2016 Instruction Type:Patient Education How to access health informa tion online - Detail Indication:Vitamin D deficiency, unspecified Start:21-Jul-2016 Instruction Type:Patient Education Patient Instructions Indication:Vitamin D deficiency, unspecified Start:21-Jul-2016 Instruction Type:Provider Instructions for Treatment How to access health informa tion online Indication:Vitamin D deficiency, unspecified Start:01-Feb-2016 Instruction Type:Patient Education How to access health informa tion online - Detail Indication:Vitamin D deficiency, unspecified Start:01-Feb-2016 Instruction Type:Patient Education Patient Instructions Indication:Vitamin D deficiency, unspecified Start:01-Feb-2016 Instruction Type:Provider Instructions for Treatment How to access health informa tion online Indication:Unspecified asthma with (acute) exacerbation Start:04-Dec-2015 Instruction Type:Patient Education How to access health informa tion online - Detail Indication:Unspecified asthma with (acute) exacerbation Start:04-Dec-2015 Instruction Type:Patient Education Patient Instructions Indication:Unspecified asthma with (acute) exacerbation Start:04-Dec-2015 Instruction Type:Provider Instructions for Treatment How to access health informa tion online Indication:Recurrent cold sores Start:16-Oct-2015 Instruction Type:Patient Education How to access health informa tion online - Detail Indication:Recurrent cold sores Start:16-Oct-2015 Instruction Type:Patient Education Patient Instructions Indication:Recurrent cold sores Start:16-Oct-2015 Instruction Type:Provider Instructions for Treatment How to access health informa tion online Indication:Vitamin D deficiency, unspecified Start:16-Jul-2015 Instruction Type:Patient Education How to access health informa tion online - Detail Indication:Vitamin D deficiency, unspecified Start:16-Jul-2015 Instruction Type:Patient Education Patient Instructions Indication:Vitamin D deficiency, unspecified Start:16-Jul-2015 Instruction Type:Provider Instructions for Treatment How to access health informa tion online - Detail Indication:Obesity Start:16-Apr-2015 Instruction Type:Patient Education Patient Instructions Indication:Obesity Start:16-Apr-2015 Instruction Type:Provider Instructions for Treatment How to access health informa tion online Indication:Subcutaneous nodule Start:19-Mar-2015 Instruction Type:Patient Education How to access health informa tion online - Detail Indication:Subcutaneous nodule Start:19-Mar-2015 Instruction Type:Patient Education Patient Instructions Indication:Subcutaneous nodule Start:19-Mar-2015 Instruction Type:Provider Instructions for Treatment How to access health informa tion online Indication:Vitamin D deficiency, unspecified Start:22-Jan-2015 Instruction Type:Patient Education How to access health informa tion online - Detail Indication:Vitamin D deficiency, unspecified Start:22-Jan-2015 Instruction Type:Patient Education Patient Instructions Indication:Vitamin D deficiency, unspecified Start:22-Jan-2015 Instruction Type:Provider Instructions for Treatment Patient Instructions Indication:Obesity Start:29-Sep-2013 Instruction Type:Provider Instructions for Treatment Patient Instructions Indication:Fatigue Start:18-Jun-2012 Instruction Type:Provider Instructions for Treatment [facility]; [facility] Work Phone: Instructions* Name Dates Details How to Access Health Informa tion Online using Patient Portal and [employer] Apps Indication:Preop examination Start:19-Aug-2022 Instruction Type:Patient Education How to Access Health Informa tion Online using Patient Portal and [employer]rd [employer] Apps Indication:Preop examination Start:19-Aug-2022 Instruction Type:Patient Education Patient Instructions Indication:BMI 37.0-37.9, adult Start:30-Apr-2022 Instruction Type:Provider Instructions for Treatment How to Access Health Informa tion Online using Patient Portal and [employer]rd [employer] Apps Indication:BMI 37.0-37.9, adult Start:30-Apr-2022 Instruction Type:Patient Education Patient Instructions Indication:Nonsmoker Start:15-Jul-2021 Instruction Type:Provider Instructions for Treatment How to Access Health Informa tion Online using Patient Portal and [employer] Apps Indication:Nonsmoker Start:15-Jul-2021 Instruction Type:Patient Education How to access health informa tion online Indication:Nonsmoker Start:20-Aug-2020 Instruction Type:Patient Education How to access health informa tion online - Detail Indication:Nonsmoker Start:20-Aug-2020 Instruction Type:Patient Education Patient Instructions Indication:Nonsmoker Start:20-Aug-2020 Instruction Type:Provider Instructions for Treatment How to access health informa tion online Indication:Nonsmoker Start:16-Apr-2020 Instruction Type:Patient Education How to access health informa tion online - Detail Indication:Nonsmoker Start:16-Apr-2020 Instruction Type:Patient Education Patient Instructions Indication:BMI 39.0-39.9,adult Start:16-Apr-2020 Instruction Type:Provider Instructions for Treatment How to access health informa tion online Indication:Nonsmoker Start:15-Nov-2019 Instruction Type:Patient Education How to access health informa tion online - Detail Indication:Nonsmoker Start:15-Nov-2019 Instruction Type:Patient Education Patient Instructions Indication:Recurrent cold sores Start:15-Nov-2019 Instruction Type:Provider Instructions for Treatment How to access health informa tion online Indication:Nonsmoker Start:01-Aug-2019 Instruction Type:Patient Education How to access health informa tion online - Detail Indication:Nonsmoker Start:01-Aug-2019 Instruction Type:Patient Education Patient Instructions Indication:BMI 39.0-39.9,adult Start:01-Aug-2019 Instruction Type:Provider Instructions for Treatment How to access health informa tion online Indication:Nonsmoker Start:18-Jul-2019 Instruction Type:Patient Education How to access health informa tion online - Detail Indication:Nonsmoker Start:18-Jul-2019 Instruction Type:Patient Education Patient Instructions Indication:Nonsmoker Start:18-Jul-2019 Instruction Type:Provider Instructions for Treatment How to access health informa tion online Indication:BMI 40.0-44.9, adult Start:27-Jun-2019 Instruction Type:Patient Education How to access health informa tion online - Detail Indication:BMI 40.0-44.9, adult Start:27-Jun-2019 Instruction Type:Patient Education Patient Instructions Indication:SOB (shortness of breath) Start:27-Jun-2019 Instruction Type:Provider Instructions for Treatment How to access health informa tion online Indication:Nonsmoker Start:27-Apr-2019 Instruction Type:Patient Education How to access health informa tion online - Detail Indication:Nonsmoker Start:27-Apr-2019 Instruction Type:Patient Education Patient Instructions Indication:Nonsmoker Start:27-Apr-2019 Instruction Type:Provider Instructions for Treatment How to access health informa tion online Indication:Nonsmoker Start:29-Dec-2018 Instruction Type:Patient Education How to access health informa tion online - Detail Indication:Nonsmoker Start:29-Dec-2018 Instruction Type:Patient Education Patient Instructions Indication:Nonsmoker Start:29-Dec-2018 Instruction Type:Provider Instructions for Treatment DISCONTINUED - TSH (THYROID STIMULATING HORMONE) (21199) Indication:Intrinsic asthma Start:09-Aug-2018 Instruction Type:Patient Education DISCONTINUED - METABOLIC MANRIQUE EL, COMPREHENSIVE (67360) Indication:GERD (gastroesophageal reflux disease) Start:09-Aug-2018 Instruction Type:Patient Education DISCONTINUED - CBC, PLATELET S & MANUAL DIFF (13758) Indication:GERD (gastroesophageal reflux disease) Start:09-Aug-2018 Instruction Type:Patient Education How to access health informa tion online Indication:Nonsmoker Start:09-Aug-2018 Instruction Type:Patient Education How to access health informa tion online - Detail Indication:Nonsmoker Start:09-Aug-2018 Instruction Type:Patient Education Patient Instructions Indication:Encounter for screening for lipid disorder Start:09-Aug-2018 Instruction Type:Provider Instructions for Treatment How to access health informa tion online Indication:BMI 37.0-37.9, adult Start:29-Sep-2017 Instruction Type:Patient Education How to access health informa tion online - Detail Indication:BMI 37.0-37.9, adult Start:29-Sep-2017 Instruction Type:Patient Education Patient Instructions Indication:BMI 37.0-37.9, adult Start:29-Sep-2017 Instruction Type:Provider Instructions for Treatment How to access health informa tion online Indication:BMI 39.0-39.9,adult Start:01-Sep-2017 Instruction Type:Patient Education How to access health informa tion online - Detail Indication:BMI 39.0-39.9,adult Start:01-Sep-2017 Instruction Type:Patient Education Patient Instructions Indication:Upper respiratory virus Start:01-Sep-2017 Instruction Type:Provider Instructions for Treatment How to access health informa tion online Indication:Nonsmoker Start:03-Jul-2017 Instruction Type:Patient Education How to access health informa tion online - Detail Indication:Nonsmoker Start:03-Jul-2017 Instruction Type:Patient Education Patient Instructions Indication:Nonsmoker Start:03-Jul-2017 Instruction Type:Provider Instructions for Treatment How to access health informa tion online Indication:Impaired fasting glucose Start:09-Mar-2017 Instruction Type:Patient Education How to access health informa tion online - Detail Indication:Impaired fasting glucose Start:09-Mar-2017 Instruction Type:Patient Education Patient Instructions Indication:Impaired fasting glucose Start:09-Mar-2017 Instruction Type:Provider Instructions for Treatment How to access health informa tion online Indication:Intrinsic asthma Start:19-Nov-2016 Instruction Type:Patient Education How to access health informa tion online - Detail Indication:Intrinsic asthma Start:19-Nov-2016 Instruction Type:Patient Education Patient Instructions Indication:Intrinsic asthma Start:19-Nov-2016 Instruction Type:Provider Instructions for Treatment How to access health informa tion online Indication:Vitamin D deficiency, unspecified Start:21-Jul-2016 Instruction Type:Patient Education How to access health informa tion online - Detail Indication:Vitamin D deficiency, unspecified Start:21-Jul-2016 Instruction Type:Patient Education Patient Instructions Indication:Vitamin D deficiency, unspecified Start:21-Jul-2016 Instruction Type:Provider Instructions for Treatment How to access health informa tion online Indication:Vitamin D deficiency, unspecified Start:01-Feb-2016 Instruction Type:Patient Education How to access health informa tion online - Detail Indication:Vitamin D deficiency, unspecified Start:01-Feb-2016 Instruction Type:Patient Education Patient Instructions Indication:Vitamin D deficiency, unspecified Start:01-Feb-2016 Instruction Type:Provider Instructions for Treatment How to access health informa tion online Indication:Unspecified asthma with (acute) exacerbation Start:04-Dec-2015 Instruction Type:Patient Education How to access health informa tion online - Detail Indication:Unspecified asthma with (acute) exacerbation Start:04-Dec-2015 Instruction Type:Patient Education Patient Instructions Indication:Unspecified asthma with (acute) exacerbation Start:04-Dec-2015 Instruction Type:Provider Instructions for Treatment How to access health informa tion online Indication:Recurrent cold sores Start:16-Oct-2015 Instruction Type:Patient Education How to access health informa tion online - Detail Indication:Recurrent cold sores Start:16-Oct-2015 Instruction Type:Patient Education Patient Instructions Indication:Recurrent cold sores Start:16-Oct-2015 Instruction Type:Provider Instructions for Treatment How to access health informa tion online Indication:Vitamin D deficiency, unspecified Start:16-Jul-2015 Instruction Type:Patient Education How to access health informa tion online - Detail Indication:Vitamin D deficiency, unspecified Start:16-Jul-2015 Instruction Type:Patient Education Patient Instructions Indication:Vitamin D deficiency, unspecified Start:16-Jul-2015 Instruction Type:Provider Instructions for Treatment How to access health informa tion online - Detail Indication:Obesity Start:16-Apr-2015 Instruction Type:Patient Education Patient Instructions Indication:Obesity Start:16-Apr-2015 Instruction Type:Provider Instructions for Treatment How to access health informa tion online Indication:Subcutaneous nodule Start:19-Mar-2015 Instruction Type:Patient Education How to access health informa tion online - Detail Indication:Subcutaneous nodule Start:19-Mar-2015 Instruction Type:Patient Education Patient Instructions Indication:Subcutaneous nodule Start:19-Mar-2015 Instruction Type:Provider Instructions for Treatment How to access health informa tion online Indication:Vitamin D deficiency, unspecified Start:22-Jan-2015 Instruction Type:Patient Education How to access health informa tion online - Detail Indication:Vitamin D deficiency, unspecified Start:22-Jan-2015 Instruction Type:Patient Education Patient Instructions Indication:Vitamin D deficiency, unspecified Start:22-Jan-2015 Instruction Type:Provider Instructions for Treatment Patient Instructions Indication:Obesity Start:29-Sep-2013 Instruction Type:Provider Instructions for Treatment Patient Instructions Indication:Fatigue Start:18-Jun-2012 Instruction Type:Provider Instructions for Treatment [facility]; [facility] Work Phone: Instructions* Name Dates Details Patient Instructions Indication:Preop examination Start:19-Aug-2022 Instruction Type:Provider Instructions for Treatment How to Access Health Informa tion Online using Patient Portal and [employer] Apps Indication:Preop examination Start:19-Aug-2022 Instruction Type:Patient Education Patient Instructions Indication:BMI 37.0-37.9, adult Start:30-Apr-2022 Instruction Type:Provider Instructions for Treatment How to Access Health Informa tion Online using Patient Portal and [employer] Apps Indication:BMI 37.0-37.9, adult Start:30-Apr-2022 Instruction Type:Patient Education Patient Instructions Indication:Nonsmoker Start:15-Jul-2021 Instruction Type:Provider Instructions for Treatment How to Access Health Informa tion Online using Patient Portal and [employer] Apps Indication:Nonsmoker Start:15-Jul-2021 Instruction Type:Patient Education How to access health informa tion online Indication:Nonsmoker Start:20-Aug-2020 Instruction Type:Patient Education How to access health informa tion online - Detail Indication:Nonsmoker Start:20-Aug-2020 Instruction Type:Patient Education Patient Instructions Indication:Nonsmoker Start:20-Aug-2020 Instruction Type:Provider Instructions for Treatment How to access health informa tion online Indication:Nonsmoker Start:16-Apr-2020 Instruction Type:Patient Education How to access health informa tion online - Detail Indication:Nonsmoker Start:16-Apr-2020 Instruction Type:Patient Education Patient Instructions Indication:BMI 39.0-39.9,adult Start:16-Apr-2020 Instruction Type:Provider Instructions for Treatment How to access health informa tion online Indication:Nonsmoker Start:15-Nov-2019 Instruction Type:Patient Education How to access health informa tion online - Detail Indication:Nonsmoker Start:15-Nov-2019 Instruction Type:Patient Education Patient Instructions Indication:Recurrent cold sores Start:15-Nov-2019 Instruction Type:Provider Instructions for Treatment How to access health informa tion online Indication:Nonsmoker Start:01-Aug-2019 Instruction Type:Patient Education How to access health informa tion online - Detail Indication:Nonsmoker Start:01-Aug-2019 Instruction Type:Patient Education Patient Instructions Indication:BMI 39.0-39.9,adult Start:01-Aug-2019 Instruction Type:Provider Instructions for Treatment How to access health informa tion online Indication:Nonsmoker Start:18-Jul-2019 Instruction Type:Patient Education How to access health informa tion online - Detail Indication:Nonsmoker Start:18-Jul-2019 Instruction Type:Patient Education Patient Instructions Indication:Nonsmoker Start:18-Jul-2019 Instruction Type:Provider Instructions for Treatment How to access health informa tion online Indication:BMI 40.0-44.9, adult Start:27-Jun-2019 Instruction Type:Patient Education How to access health informa tion online - Detail Indication:BMI 40.0-44.9, adult Start:27-Jun-2019 Instruction Type:Patient Education Patient Instructions Indication:SOB (shortness of breath) Start:27-Jun-2019 Instruction Type:Provider Instructions for Treatment How to access health informa tion online Indication:Nonsmoker Start:27-Apr-2019 Instruction Type:Patient Education How to access health informa tion online - Detail Indication:Nonsmoker Start:27-Apr-2019 Instruction Type:Patient Education Patient Instructions Indication:Nonsmoker Start:27-Apr-2019 Instruction Type:Provider Instructions for Treatment How to access health informa tion online Indication:Nonsmoker Start:29-Dec-2018 Instruction Type:Patient Education How to access health informa tion online - Detail Indication:Nonsmoker Start:29-Dec-2018 Instruction Type:Patient Education Patient Instructions Indication:Nonsmoker Start:29-Dec-2018 Instruction Type:Provider Instructions for Treatment DISCONTINUED - TSH (THYROID STIMULATING HORMONE) (03166) Indication:Intrinsic asthma Start:09-Aug-2018 Instruction Type:Patient Education DISCONTINUED - METABOLIC MANRIQUE EL, COMPREHENSIVE (79903) Indication:GERD (gastroesophageal reflux disease) Start:09-Aug-2018 Instruction Type:Patient Education DISCONTINUED - CBC, PLATELET S & MANUAL DIFF (23988) Indication:GERD (gastroesophageal reflux disease) Start:09-Aug-2018 Instruction Type:Patient Education How to access health informa tion online Indication:Nonsmoker Start:09-Aug-2018 Instruction Type:Patient Education How to access health informa tion online - Detail Indication:Nonsmoker Start:09-Aug-2018 Instruction Type:Patient Education Patient Instructions Indication:Encounter for screening for lipid disorder Start:09-Aug-2018 Instruction Type:Provider Instructions for Treatment How to access health informa tion online Indication:BMI 37.0-37.9, adult Start:29-Sep-2017 Instruction Type:Patient Education How to access health informa tion online - Detail Indication:BMI 37.0-37.9, adult Start:29-Sep-2017 Instruction Type:Patient Education Patient Instructions Indication:BMI 37.0-37.9, adult Start:29-Sep-2017 Instruction Type:Provider Instructions for Treatment How to access health informa tion online Indication:BMI 39.0-39.9,adult Start:01-Sep-2017 Instruction Type:Patient Education How to access health informa tion online - Detail Indication:BMI 39.0-39.9,adult Start:01-Sep-2017 Instruction Type:Patient Education Patient Instructions Indication:Upper respiratory virus Start:01-Sep-2017 Instruction Type:Provider Instructions for Treatment How to access health informa tion online Indication:Nonsmoker Start:03-Jul-2017 Instruction Type:Patient Education How to access health informa tion online - Detail Indication:Nonsmoker Start:03-Jul-2017 Instruction Type:Patient Education Patient Instructions Indication:Nonsmoker Start:03-Jul-2017 Instruction Type:Provider Instructions for Treatment How to access health informa tion online Indication:Impaired fasting glucose Start:09-Mar-2017 Instruction Type:Patient Education How to access health informa tion online - Detail Indication:Impaired fasting glucose Start:09-Mar-2017 Instruction Type:Patient Education Patient Instructions Indication:Impaired fasting glucose Start:09-Mar-2017 Instruction Type:Provider Instructions for Treatment How to access health informa tion online Indication:Intrinsic asthma Start:19-Nov-2016 Instruction Type:Patient Education How to access health informa tion online - Detail Indication:Intrinsic asthma Start:19-Nov-2016 Instruction Type:Patient Education Patient Instructions Indication:Intrinsic asthma Start:19-Nov-2016 Instruction Type:Provider Instructions for Treatment How to access health informa tion online Indication:Vitamin D deficiency, unspecified Start:21-Jul-2016 Instruction Type:Patient Education How to access health informa tion online - Detail Indication:Vitamin D deficiency, unspecified Start:21-Jul-2016 Instruction Type:Patient Education Patient Instructions Indication:Vitamin D deficiency, unspecified Start:21-Jul-2016 Instruction Type:Provider Instructions for Treatment How to access health informa tion online Indication:Vitamin D deficiency, unspecified Start:01-Feb-2016 Instruction Type:Patient Education How to access health informa tion online - Detail Indication:Vitamin D deficiency, unspecified Start:01-Feb-2016 Instruction Type:Patient Education Patient Instructions Indication:Vitamin D deficiency, unspecified Start:01-Feb-2016 Instruction Type:Provider Instructions for Treatment How to access health informa tion online Indication:Unspecified asthma with (acute) exacerbation Start:04-Dec-2015 Instruction Type:Patient Education How to access health informa tion online - Detail Indication:Unspecified asthma with (acute) exacerbation Start:04-Dec-2015 Instruction Type:Patient Education Patient Instructions Indication:Unspecified asthma with (acute) exacerbation Start:04-Dec-2015 Instruction Type:Provider Instructions for Treatment How to access health informa tion online Indication:Recurrent cold sores Start:16-Oct-2015 Instruction Type:Patient Education How to access health informa tion online - Detail Indication:Recurrent cold sores Start:16-Oct-2015 Instruction Type:Patient Education Patient Instructions Indication:Recurrent cold sores Start:16-Oct-2015 Instruction Type:Provider Instructions for Treatment How to access health informa tion online Indication:Vitamin D deficiency, unspecified Start:16-Jul-2015 Instruction Type:Patient Education How to access health informa tion online - Detail Indication:Vitamin D deficiency, unspecified Start:16-Jul-2015 Instruction Type:Patient Education Patient Instructions Indication:Vitamin D deficiency, unspecified Start:16-Jul-2015 Instruction Type:Provider Instructions for Treatment How to access health informa tion online - Detail Indication:Obesity Start:16-Apr-2015 Instruction Type:Patient Education Patient Instructions Indication:Obesity Start:16-Apr-2015 Instruction Type:Provider Instructions for Treatment How to access health informa tion online Indication:Subcutaneous nodule Start:19-Mar-2015 Instruction Type:Patient Education How to access health informa tion online - Detail Indication:Subcutaneous nodule Start:19-Mar-2015 Instruction Type:Patient Education Patient Instructions Indication:Subcutaneous nodule Start:19-Mar-2015 Instruction Type:Provider Instructions for Treatment How to access health informa tion online Indication:Vitamin D deficiency, unspecified Start:22-Jan-2015 Instruction Type:Patient Education How to access health informa tion online - Detail Indication:Vitamin D deficiency, unspecified Start:22-Jan-2015 Instruction Type:Patient Education Patient Instructions Indication:Vitamin D deficiency, unspecified Start:22-Jan-2015 Instruction Type:Provider Instructions for Treatment Patient Instructions Indication:Obesity Start:29-Sep-2013 Instruction Type:Provider Instructions for Treatment Patient Instructions Indication:Fatigue Start:18-Jun-2012 Instruction Type:Provider Instructions for Treatment [facility]; [facility] Work Phone: Instructions* Name Dates Details Patient Instructions Indication:Preop examination Start:19-Aug-2022 Instruction Type:Provider Instructions for Treatment How to Access Health Informa tion Online using Patient Portal and 3rd [employer] Apps Indication:Preop examination Start:19-Aug-2022 Instruction Type:Patient Education Patient Instructions Indication:BMI 37.0-37.9, adult Start:30-Apr-2022 Instruction Type:Provider Instructions for Treatment How to Access Health Informa tion Online using Patient Portal and 3rd [employer] Apps Indication:BMI 37.0-37.9, adult Start:30-Apr-2022 Instruction Type:Patient Education Patient Instructions Indication:Nonsmoker Start:15-Jul-2021 Instruction Type:Provider Instructions for Treatment How to Access Health Informa tion Online using Patient Portal and [employer]rd [employer] Apps Indication:Nonsmoker Start:15-Jul-2021 Instruction Type:Patient Education How to access health informa tion online Indication:Nonsmoker Start:20-Aug-2020 Instruction Type:Patient Education How to access health informa tion online - Detail Indication:Nonsmoker Start:20-Aug-2020 Instruction Type:Patient Education Patient Instructions Indication:Nonsmoker Start:20-Aug-2020 Instruction Type:Provider Instructions for Treatment How to access health informa tion online Indication:Nonsmoker Start:16-Apr-2020 Instruction Type:Patient Education How to access health informa tion online - Detail Indication:Nonsmoker Start:16-Apr-2020 Instruction Type:Patient Education Patient Instructions Indication:BMI 39.0-39.9,adult Start:16-Apr-2020 Instruction Type:Provider Instructions for Treatment How to access health informa tion online Indication:Nonsmoker Start:15-Nov-2019 Instruction Type:Patient Education How to access health informa tion online - Detail Indication:Nonsmoker Start:15-Nov-2019 Instruction Type:Patient Education Patient Instructions Indication:Recurrent cold sores Start:15-Nov-2019 Instruction Type:Provider Instructions for Treatment How to access health informa tion online Indication:Nonsmoker Start:01-Aug-2019 Instruction Type:Patient Education How to access health informa tion online - Detail Indication:Nonsmoker Start:01-Aug-2019 Instruction Type:Patient Education Patient Instructions Indication:BMI 39.0-39.9,adult Start:01-Aug-2019 Instruction Type:Provider Instructions for Treatment How to access health informa tion online Indication:Nonsmoker Start:18-Jul-2019 Instruction Type:Patient Education How to access health informa tion online - Detail Indication:Nonsmoker Start:18-Jul-2019 Instruction Type:Patient Education Patient Instructions Indication:Nonsmoker Start:18-Jul-2019 Instruction Type:Provider Instructions for Treatment How to access health informa tion online Indication:BMI 40.0-44.9, adult Start:27-Jun-2019 Instruction Type:Patient Education How to access health informa tion online - Detail Indication:BMI 40.0-44.9, adult Start:27-Jun-2019 Instruction Type:Patient Education Patient Instructions Indication:SOB (shortness of breath) Start:27-Jun-2019 Instruction Type:Provider Instructions for Treatment How to access health informa tion online Indication:Nonsmoker Start:27-Apr-2019 Instruction Type:Patient Education How to access health informa tion online - Detail Indication:Nonsmoker Start:27-Apr-2019 Instruction Type:Patient Education Patient Instructions Indication:Nonsmoker Start:27-Apr-2019 Instruction Type:Provider Instructions for Treatment How to access health informa tion online Indication:Nonsmoker Start:29-Dec-2018 Instruction Type:Patient Education How to access health informa tion online - Detail Indication:Nonsmoker Start:29-Dec-2018 Instruction Type:Patient Education Patient Instructions Indication:Nonsmoker Start:29-Dec-2018 Instruction Type:Provider Instructions for Treatment DISCONTINUED - TSH (THYROID STIMULATING HORMONE) (19608) Indication:Intrinsic asthma Start:09-Aug-2018 Instruction Type:Patient Education DISCONTINUED - METABOLIC MANRIQUE EL, COMPREHENSIVE (05423) Indication:GERD (gastroesophageal reflux disease) Start:09-Aug-2018 Instruction Type:Patient Education DISCONTINUED - CBC, PLATELET S & MANUAL DIFF (15224) Indication:GERD (gastroesophageal reflux disease) Start:09-Aug-2018 Instruction Type:Patient Education How to access health informa tion online Indication:Nonsmoker Start:09-Aug-2018 Instruction Type:Patient Education How to access health informa tion online - Detail Indication:Nonsmoker Start:09-Aug-2018 Instruction Type:Patient Education Patient Instructions Indication:Encounter for screening for lipid disorder Start:09-Aug-2018 Instruction Type:Provider Instructions for Treatment How to access health informa tion online Indication:BMI 37.0-37.9, adult Start:29-Sep-2017 Instruction Type:Patient Education How to access health informa tion online - Detail Indication:BMI 37.0-37.9, adult Start:29-Sep-2017 Instruction Type:Patient Education Patient Instructions Indication:BMI 37.0-37.9, adult Start:29-Sep-2017 Instruction Type:Provider Instructions for Treatment How to access health informa tion online Indication:BMI 39.0-39.9,adult Start:01-Sep-2017 Instruction Type:Patient Education How to access health informa tion online - Detail Indication:BMI 39.0-39.9,adult Start:01-Sep-2017 Instruction Type:Patient Education Patient Instructions Indication:Upper respiratory virus Start:01-Sep-2017 Instruction Type:Provider Instructions for Treatment How to access health informa tion online Indication:Nonsmoker Start:03-Jul-2017 Instruction Type:Patient Education How to access health informa tion online - Detail Indication:Nonsmoker Start:03-Jul-2017 Instruction Type:Patient Education Patient Instructions Indication:Nonsmoker Start:03-Jul-2017 Instruction Type:Provider Instructions for Treatment How to access health informa tion online Indication:Impaired fasting glucose Start:09-Mar-2017 Instruction Type:Patient Education How to access health informa tion online - Detail Indication:Impaired fasting glucose Start:09-Mar-2017 Instruction Type:Patient Education Patient Instructions Indication:Impaired fasting glucose Start:09-Mar-2017 Instruction Type:Provider Instructions for Treatment How to access health informa tion online Indication:Intrinsic asthma Start:19-Nov-2016 Instruction Type:Patient Education How to access health informa tion online - Detail Indication:Intrinsic asthma Start:19-Nov-2016 Instruction Type:Patient Education Patient Instructions Indication:Intrinsic asthma Start:19-Nov-2016 Instruction Type:Provider Instructions for Treatment How to access health informa tion online Indication:Vitamin D deficiency, unspecified Start:21-Jul-2016 Instruction Type:Patient Education How to access health informa tion online - Detail Indication:Vitamin D deficiency, unspecified Start:21-Jul-2016 Instruction Type:Patient Education Patient Instructions Indication:Vitamin D deficiency, unspecified Start:21-Jul-2016 Instruction Type:Provider Instructions for Treatment How to access health informa tion online Indication:Vitamin D deficiency, unspecified Start:01-Feb-2016 Instruction Type:Patient Education How to access health informa tion online - Detail Indication:Vitamin D deficiency, unspecified Start:01-Feb-2016 Instruction Type:Patient Education Patient Instructions Indication:Vitamin D deficiency, unspecified Start:01-Feb-2016 Instruction Type:Provider Instructions for Treatment How to access health informa tion online Indication:Unspecified asthma with (acute) exacerbation Start:04-Dec-2015 Instruction Type:Patient Education How to access health informa tion online - Detail Indication:Unspecified asthma with (acute) exacerbation Start:04-Dec-2015 Instruction Type:Patient Education Patient Instructions Indication:Unspecified asthma with (acute) exacerbation Start:04-Dec-2015 Instruction Type:Provider Instructions for Treatment How to access health informa tion online Indication:Recurrent cold sores Start:16-Oct-2015 Instruction Type:Patient Education How to access health informa tion online - Detail Indication:Recurrent cold sores Start:16-Oct-2015 Instruction Type:Patient Education Patient Instructions Indication:Recurrent cold sores Start:16-Oct-2015 Instruction Type:Provider Instructions for Treatment How to access health informa tion online Indication:Vitamin D deficiency, unspecified Start:16-Jul-2015 Instruction Type:Patient Education How to access health informa tion online - Detail Indication:Vitamin D deficiency, unspecified Start:16-Jul-2015 Instruction Type:Patient Education Patient Instructions Indication:Vitamin D deficiency, unspecified Start:16-Jul-2015 Instruction Type:Provider Instructions for Treatment How to access health informa tion online - Detail Indication:Obesity Start:16-Apr-2015 Instruction Type:Patient Education Patient Instructions Indication:Obesity Start:16-Apr-2015 Instruction Type:Provider Instructions for Treatment How to access health informa tion online Indication:Subcutaneous nodule Start:19-Mar-2015 Instruction Type:Patient Education How to access health informa tion online - Detail Indication:Subcutaneous nodule Start:19-Mar-2015 Instruction Type:Patient Education Patient Instructions Indication:Subcutaneous nodule Start:19-Mar-2015 Instruction Type:Provider Instructions for Treatment How to access health informa tion online Indication:Vitamin D deficiency, unspecified Start:22-Jan-2015 Instruction Type:Patient Education How to access health informa tion online - Detail Indication:Vitamin D deficiency, unspecified Start:22-Jan-2015 Instruction Type:Patient Education Patient Instructions Indication:Vitamin D deficiency, unspecified Start:22-Jan-2015 Instruction Type:Provider Instructions for Treatment Patient Instructions Indication:Obesity Start:29-Sep-2013 Instruction Type:Provider Instructions for Treatment Patient Instructions Indication:Fatigue Start:18-Jun-2012 Instruction Type:Provider Instructions for Treatment [facility]; [facility] Work Phone: Instructions* Name Dates Details Patient Instructions Indication:Preop examination Start:19-Aug-2022 Instruction Type:Provider Instructions for Treatment How to Access Health Informa tion Online using Patient Portal and [employer]rd [employer] Apps Indication:Preop examination Start:19-Aug-2022 Instruction Type:Patient Education Patient Instructions Indication:BMI 37.0-37.9, adult Start:30-Apr-2022 Instruction Type:Provider Instructions for Treatment How to Access Health Informa tion Online using Patient Portal and 3rd [employer] Apps Indication:BMI 37.0-37.9, adult Start:30-Apr-2022 Instruction Type:Patient Education Patient Instructions Indication:Nonsmoker Start:15-Jul-2021 Instruction Type:Provider Instructions for Treatment How to Access Health Informa tion Online using Patient Portal and [employer]rd [employer] Apps Indication:Nonsmoker Start:15-Jul-2021 Instruction Type:Patient Education How to access health informa tion online Indication:Nonsmoker Start:20-Aug-2020 Instruction Type:Patient Education How to access health informa tion online - Detail Indication:Nonsmoker Start:20-Aug-2020 Instruction Type:Patient Education Patient Instructions Indication:Nonsmoker Start:20-Aug-2020 Instruction Type:Provider Instructions for Treatment How to access health informa tion online Indication:Nonsmoker Start:16-Apr-2020 Instruction Type:Patient Education How to access health informa tion online - Detail Indication:Nonsmoker Start:16-Apr-2020 Instruction Type:Patient Education Patient Instructions Indication:BMI 39.0-39.9,adult Start:16-Apr-2020 Instruction Type:Provider Instructions for Treatment How to access health informa tion online Indication:Nonsmoker Start:15-Nov-2019 Instruction Type:Patient Education How to access health informa tion online - Detail Indication:Nonsmoker Start:15-Nov-2019 Instruction Type:Patient Education Patient Instructions Indication:Recurrent cold sores Start:15-Nov-2019 Instruction Type:Provider Instructions for Treatment How to access health informa tion online Indication:Nonsmoker Start:01-Aug-2019 Instruction Type:Patient Education How to access health informa tion online - Detail Indication:Nonsmoker Start:01-Aug-2019 Instruction Type:Patient Education Patient Instructions Indication:BMI 39.0-39.9,adult Start:01-Aug-2019 Instruction Type:Provider Instructions for Treatment How to access health informa tion online Indication:Nonsmoker Start:18-Jul-2019 Instruction Type:Patient Education How to access health informa tion online - Detail Indication:Nonsmoker Start:18-Jul-2019 Instruction Type:Patient Education Patient Instructions Indication:Nonsmoker Start:18-Jul-2019 Instruction Type:Provider Instructions for Treatment How to access health informa tion online Indication:BMI 40.0-44.9, adult Start:27-Jun-2019 Instruction Type:Patient Education How to access health informa tion online - Detail Indication:BMI 40.0-44.9, adult Start:27-Jun-2019 Instruction Type:Patient Education Patient Instructions Indication:SOB (shortness of breath) Start:27-Jun-2019 Instruction Type:Provider Instructions for Treatment How to access health informa tion online Indication:Nonsmoker Start:27-Apr-2019 Instruction Type:Patient Education How to access health informa tion online - Detail Indication:Nonsmoker Start:27-Apr-2019 Instruction Type:Patient Education Patient Instructions Indication:Nonsmoker Start:27-Apr-2019 Instruction Type:Provider Instructions for Treatment How to access health informa tion online Indication:Nonsmoker Start:29-Dec-2018 Instruction Type:Patient Education How to access health informa tion online - Detail Indication:Nonsmoker Start:29-Dec-2018 Instruction Type:Patient Education Patient Instructions Indication:Nonsmoker Start:29-Dec-2018 Instruction Type:Provider Instructions for Treatment DISCONTINUED - TSH (THYROID STIMULATING HORMONE) (82816) Indication:Intrinsic asthma Start:09-Aug-2018 Instruction Type:Patient Education DISCONTINUED - METABOLIC MANRIQUE EL, COMPREHENSIVE (35336) Indication:GERD (gastroesophageal reflux disease) Start:09-Aug-2018 Instruction Type:Patient Education DISCONTINUED - CBC, PLATELET S & MANUAL DIFF (47546) Indication:GERD (gastroesophageal reflux disease) Start:09-Aug-2018 Instruction Type:Patient Education How to access health informa tion online Indication:Nonsmoker Start:09-Aug-2018 Instruction Type:Patient Education How to access health informa tion online - Detail Indication:Nonsmoker Start:09-Aug-2018 Instruction Type:Patient Education Patient Instructions Indication:Encounter for screening for lipid disorder Start:09-Aug-2018 Instruction Type:Provider Instructions for Treatment How to access health informa tion online Indication:BMI 37.0-37.9, adult Start:29-Sep-2017 Instruction Type:Patient Education How to access health informa tion online - Detail Indication:BMI 37.0-37.9, adult Start:29-Sep-2017 Instruction Type:Patient Education Patient Instructions Indication:BMI 37.0-37.9, adult Start:29-Sep-2017 Instruction Type:Provider Instructions for Treatment How to access health informa tion online Indication:BMI 39.0-39.9,adult Start:01-Sep-2017 Instruction Type:Patient Education How to access health informa tion online - Detail Indication:BMI 39.0-39.9,adult Start:01-Sep-2017 Instruction Type:Patient Education Patient Instructions Indication:Upper respiratory virus Start:01-Sep-2017 Instruction Type:Provider Instructions for Treatment How to access health informa tion online Indication:Nonsmoker Start:03-Jul-2017 Instruction Type:Patient Education How to access health informa tion online - Detail Indication:Nonsmoker Start:03-Jul-2017 Instruction Type:Patient Education Patient Instructions Indication:Nonsmoker Start:03-Jul-2017 Instruction Type:Provider Instructions for Treatment How to access health informa tion online Indication:Impaired fasting glucose Start:09-Mar-2017 Instruction Type:Patient Education How to access health informa tion online - Detail Indication:Impaired fasting glucose Start:09-Mar-2017 Instruction Type:Patient Education Patient Instructions Indication:Impaired fasting glucose Start:09-Mar-2017 Instruction Type:Provider Instructions for Treatment How to access health informa tion online Indication:Intrinsic asthma Start:19-Nov-2016 Instruction Type:Patient Education How to access health informa tion online - Detail Indication:Intrinsic asthma Start:19-Nov-2016 Instruction Type:Patient Education Patient Instructions Indication:Intrinsic asthma Start:19-Nov-2016 Instruction Type:Provider Instructions for Treatment How to access health informa tion online Indication:Vitamin D deficiency, unspecified Start:21-Jul-2016 Instruction Type:Patient Education How to access health informa tion online - Detail Indication:Vitamin D deficiency, unspecified Start:21-Jul-2016 Instruction Type:Patient Education Patient Instructions Indication:Vitamin D deficiency, unspecified Start:21-Jul-2016 Instruction Type:Provider Instructions for Treatment How to access health informa tion online Indication:Vitamin D deficiency, unspecified Start:01-Feb-2016 Instruction Type:Patient Education How to access health informa tion online - Detail Indication:Vitamin D deficiency, unspecified Start:01-Feb-2016 Instruction Type:Patient Education Patient Instructions Indication:Vitamin D deficiency, unspecified Start:01-Feb-2016 Instruction Type:Provider Instructions for Treatment How to access health informa tion online Indication:Unspecified asthma with (acute) exacerbation Start:04-Dec-2015 Instruction Type:Patient Education How to access health informa tion online - Detail Indication:Unspecified asthma with (acute) exacerbation Start:04-Dec-2015 Instruction Type:Patient Education Patient Instructions Indication:Unspecified asthma with (acute) exacerbation Start:04-Dec-2015 Instruction Type:Provider Instructions for Treatment How to access health informa tion online Indication:Recurrent cold sores Start:16-Oct-2015 Instruction Type:Patient Education How to access health informa tion online - Detail Indication:Recurrent cold sores Start:16-Oct-2015 Instruction Type:Patient Education Patient Instructions Indication:Recurrent cold sores Start:16-Oct-2015 Instruction Type:Provider Instructions for Treatment How to access health informa tion online Indication:Vitamin D deficiency, unspecified Start:16-Jul-2015 Instruction Type:Patient Education How to access health informa tion online - Detail Indication:Vitamin D deficiency, unspecified Start:16-Jul-2015 Instruction Type:Patient Education Patient Instructions Indication:Vitamin D deficiency, unspecified Start:16-Jul-2015 Instruction Type:Provider Instructions for Treatment How to access health informa tion online - Detail Indication:Obesity Start:16-Apr-2015 Instruction Type:Patient Education Patient Instructions Indication:Obesity Start:16-Apr-2015 Instruction Type:Provider Instructions for Treatment How to access health informa tion online Indication:Subcutaneous nodule Start:19-Mar-2015 Instruction Type:Patient Education How to access health informa tion online - Detail Indication:Subcutaneous nodule Start:19-Mar-2015 Instruction Type:Patient Education Patient Instructions Indication:Subcutaneous nodule Start:19-Mar-2015 Instruction Type:Provider Instructions for Treatment How to access health informa tion online Indication:Vitamin D deficiency, unspecified Start:22-Jan-2015 Instruction Type:Patient Education How to access health informa tion online - Detail Indication:Vitamin D deficiency, unspecified Start:22-Jan-2015 Instruction Type:Patient Education Patient Instructions Indication:Vitamin D deficiency, unspecified Start:22-Jan-2015 Instruction Type:Provider Instructions for Treatment Patient Instructions Indication:Obesity Start:29-Sep-2013 Instruction Type:Provider Instructions for Treatment Patient Instructions Indication:Fatigue Start:18-Jun-2012 Instruction Type:Provider Instructions for Treatment [facility] Work Phone: Instructions* Name Dates Details Patient Instructions Indication:Preop examination Start:19-Aug-2022 Instruction Type:Provider Instructions for Treatment How to Access Health Informa tion Online using Patient Portal and [employer]rd [employer] Apps Indication:Preop examination Start:19-Aug-2022 Instruction Type:Patient Education Patient Instructions Indication:BMI 37.0-37.9, adult Start:30-Apr-2022 Instruction Type:Provider Instructions for Treatment How to Access Health Informa tion Online using Patient Portal and [employer] Apps Indication:BMI 37.0-37.9, adult Start:30-Apr-2022 Instruction Type:Patient Education Patient Instructions Indication:Nonsmoker Start:15-Jul-2021 Instruction Type:Provider Instructions for Treatment How to Access Health Informa tion Online using Patient Portal and [employer]rd [employer] Apps Indication:Nonsmoker Start:15-Jul-2021 Instruction Type:Patient Education How to access health informa tion online Indication:Nonsmoker Start:20-Aug-2020 Instruction Type:Patient Education How to access health informa tion online - Detail Indication:Nonsmoker Start:20-Aug-2020 Instruction Type:Patient Education Patient Instructions Indication:Nonsmoker Start:20-Aug-2020 Instruction Type:Provider Instructions for Treatment How to access health informa tion online Indication:Nonsmoker Start:16-Apr-2020 Instruction Type:Patient Education How to access health informa tion online - Detail Indication:Nonsmoker Start:16-Apr-2020 Instruction Type:Patient Education Patient Instructions Indication:BMI 39.0-39.9,adult Start:16-Apr-2020 Instruction Type:Provider Instructions for Treatment How to access health informa tion online Indication:Nonsmoker Start:15-Nov-2019 Instruction Type:Patient Education How to access health informa tion online - Detail Indication:Nonsmoker Start:15-Nov-2019 Instruction Type:Patient Education Patient Instructions Indication:Recurrent cold sores Start:15-Nov-2019 Instruction Type:Provider Instructions for Treatment How to access health informa tion online Indication:Nonsmoker Start:01-Aug-2019 Instruction Type:Patient Education How to access health informa tion online - Detail Indication:Nonsmoker Start:01-Aug-2019 Instruction Type:Patient Education Patient Instructions Indication:BMI 39.0-39.9,adult Start:01-Aug-2019 Instruction Type:Provider Instructions for Treatment How to access health informa tion online Indication:Nonsmoker Start:18-Jul-2019 Instruction Type:Patient Education How to access health informa tion online - Detail Indication:Nonsmoker Start:18-Jul-2019 Instruction Type:Patient Education Patient Instructions Indication:Nonsmoker Start:18-Jul-2019 Instruction Type:Provider Instructions for Treatment How to access health informa tion online Indication:BMI 40.0-44.9, adult Start:27-Jun-2019 Instruction Type:Patient Education How to access health informa tion online - Detail Indication:BMI 40.0-44.9, adult Start:27-Jun-2019 Instruction Type:Patient Education Patient Instructions Indication:SOB (shortness of breath) Start:27-Jun-2019 Instruction Type:Provider Instructions for Treatment How to access health informa tion online Indication:Nonsmoker Start:27-Apr-2019 Instruction Type:Patient Education How to access health informa tion online - Detail Indication:Nonsmoker Start:27-Apr-2019 Instruction Type:Patient Education Patient Instructions Indication:Nonsmoker Start:27-Apr-2019 Instruction Type:Provider Instructions for Treatment How to access health informa tion online Indication:Nonsmoker Start:29-Dec-2018 Instruction Type:Patient Education How to access health informa tion online - Detail Indication:Nonsmoker Start:29-Dec-2018 Instruction Type:Patient Education Patient Instructions Indication:Nonsmoker Start:29-Dec-2018 Instruction Type:Provider Instructions for Treatment DISCONTINUED - TSH (THYROID STIMULATING HORMONE) (33149) Indication:Intrinsic asthma Start:09-Aug-2018 Instruction Type:Patient Education DISCONTINUED - METABOLIC MANRIQUE EL, COMPREHENSIVE (66577) Indication:GERD (gastroesophageal reflux disease) Start:09-Aug-2018 Instruction Type:Patient Education DISCONTINUED - CBC, PLATELET S & MANUAL DIFF (99516) Indication:GERD (gastroesophageal reflux disease) Start:09-Aug-2018 Instruction Type:Patient Education How to access health informa tion online Indication:Nonsmoker Start:09-Aug-2018 Instruction Type:Patient Education How to access health informa tion online - Detail Indication:Nonsmoker Start:09-Aug-2018 Instruction Type:Patient Education Patient Instructions Indication:Encounter for screening for lipid disorder Start:09-Aug-2018 Instruction Type:Provider Instructions for Treatment How to access health informa tion online Indication:BMI 37.0-37.9, adult Start:29-Sep-2017 Instruction Type:Patient Education How to access health informa tion online - Detail Indication:BMI 37.0-37.9, adult Start:29-Sep-2017 Instruction Type:Patient Education Patient Instructions Indication:BMI 37.0-37.9, adult Start:29-Sep-2017 Instruction Type:Provider Instructions for Treatment How to access health informa tion online Indication:BMI 39.0-39.9,adult Start:01-Sep-2017 Instruction Type:Patient Education How to access health informa tion online - Detail Indication:BMI 39.0-39.9,adult Start:01-Sep-2017 Instruction Type:Patient Education Patient Instructions Indication:Upper respiratory virus Start:01-Sep-2017 Instruction Type:Provider Instructions for Treatment How to access health informa tion online Indication:Nonsmoker Start:03-Jul-2017 Instruction Type:Patient Education How to access health informa tion online - Detail Indication:Nonsmoker Start:03-Jul-2017 Instruction Type:Patient Education Patient Instructions Indication:Nonsmoker Start:03-Jul-2017 Instruction Type:Provider Instructions for Treatment How to access health informa tion online Indication:Impaired fasting glucose Start:09-Mar-2017 Instruction Type:Patient Education How to access health informa tion online - Detail Indication:Impaired fasting glucose Start:09-Mar-2017 Instruction Type:Patient Education Patient Instructions Indication:Impaired fasting glucose Start:09-Mar-2017 Instruction Type:Provider Instructions for Treatment How to access health informa tion online Indication:Intrinsic asthma Start:19-Nov-2016 Instruction Type:Patient Education How to access health informa tion online - Detail Indication:Intrinsic asthma Start:19-Nov-2016 Instruction Type:Patient Education Patient Instructions Indication:Intrinsic asthma Start:19-Nov-2016 Instruction Type:Provider Instructions for Treatment How to access health informa tion online Indication:Vitamin D deficiency, unspecified Start:21-Jul-2016 Instruction Type:Patient Education How to access health informa tion online - Detail Indication:Vitamin D deficiency, unspecified Start:21-Jul-2016 Instruction Type:Patient Education Patient Instructions Indication:Vitamin D deficiency, unspecified Start:21-Jul-2016 Instruction Type:Provider Instructions for Treatment How to access health informa tion online Indication:Vitamin D deficiency, unspecified Start:01-Feb-2016 Instruction Type:Patient Education How to access health informa tion online - Detail Indication:Vitamin D deficiency, unspecified Start:01-Feb-2016 Instruction Type:Patient Education Patient Instructions Indication:Vitamin D deficiency, unspecified Start:01-Feb-2016 Instruction Type:Provider Instructions for Treatment How to access health informa tion online Indication:Unspecified asthma with (acute) exacerbation Start:04-Dec-2015 Instruction Type:Patient Education How to access health informa tion online - Detail Indication:Unspecified asthma with (acute) exacerbation Start:04-Dec-2015 Instruction Type:Patient Education Patient Instructions Indication:Unspecified asthma with (acute) exacerbation Start:04-Dec-2015 Instruction Type:Provider Instructions for Treatment How to access health informa tion online Indication:Recurrent cold sores Start:16-Oct-2015 Instruction Type:Patient Education How to access health informa tion online - Detail Indication:Recurrent cold sores Start:16-Oct-2015 Instruction Type:Patient Education Patient Instructions Indication:Recurrent cold sores Start:16-Oct-2015 Instruction Type:Provider Instructions for Treatment How to access health informa tion online Indication:Vitamin D deficiency, unspecified Start:16-Jul-2015 Instruction Type:Patient Education How to access health informa tion online - Detail Indication:Vitamin D deficiency, unspecified Start:16-Jul-2015 Instruction Type:Patient Education Patient Instructions Indication:Vitamin D deficiency, unspecified Start:16-Jul-2015 Instruction Type:Provider Instructions for Treatment How to access health informa tion online - Detail Indication:Obesity Start:16-Apr-2015 Instruction Type:Patient Education Patient Instructions Indication:Obesity Start:16-Apr-2015 Instruction Type:Provider Instructions for Treatment How to access health informa tion online Indication:Subcutaneous nodule Start:19-Mar-2015 Instruction Type:Patient Education How to access health informa tion online - Detail Indication:Subcutaneous nodule Start:19-Mar-2015 Instruction Type:Patient Education Patient Instructions Indication:Subcutaneous nodule Start:19-Mar-2015 Instruction Type:Provider Instructions for Treatment How to access health informa tion online Indication:Vitamin D deficiency, unspecified Start:22-Jan-2015 Instruction Type:Patient Education How to access health informa tion online - Detail Indication:Vitamin D deficiency, unspecified Start:22-Jan-2015 Instruction Type:Patient Education Patient Instructions Indication:Vitamin D deficiency, unspecified Start:22-Jan-2015 Instruction Type:Provider Instructions for Treatment Patient Instructions Indication:Obesity Start:29-Sep-2013 Instruction Type:Provider Instructions for Treatment Patient Instructions Indication:Fatigue Start:18-Jun-2012 Instruction Type:Provider Instructions for Treatment [facility]; [facility] Work Phone: Instructions* Name Dates Details Patient Instructions Indication:Preop examination Start:19-Aug-2022 Instruction Type:Provider Instructions for Treatment How to Access Health Informa tion Online using Patient Portal and [employer] Apps Indication:Preop examination Start:19-Aug-2022 Instruction Type:Patient Education Patient Instructions Indication:BMI 37.0-37.9, adult Start:30-Apr-2022 Instruction Type:Provider Instructions for Treatment How to Access Health Informa tion Online using Patient Portal and [employer] Apps Indication:BMI 37.0-37.9, adult Start:30-Apr-2022 Instruction Type:Patient Education Patient Instructions Indication:Nonsmoker Start:15-Jul-2021 Instruction Type:Provider Instructions for Treatment How to Access Health Informa tion Online using Patient Portal and [employer] Apps Indication:Nonsmoker Start:15-Jul-2021 Instruction Type:Patient Education How to access health informa tion online Indication:Nonsmoker Start:20-Aug-2020 Instruction Type:Patient Education How to access health informa tion online - Detail Indication:Nonsmoker Start:20-Aug-2020 Instruction Type:Patient Education Patient Instructions Indication:Nonsmoker Start:20-Aug-2020 Instruction Type:Provider Instructions for Treatment How to access health informa tion online Indication:Nonsmoker Start:16-Apr-2020 Instruction Type:Patient Education How to access health informa tion online - Detail Indication:Nonsmoker Start:16-Apr-2020 Instruction Type:Patient Education Patient Instructions Indication:BMI 39.0-39.9,adult Start:16-Apr-2020 Instruction Type:Provider Instructions for Treatment How to access health informa tion online Indication:Nonsmoker Start:15-Nov-2019 Instruction Type:Patient Education How to access health informa tion online - Detail Indication:Nonsmoker Start:15-Nov-2019 Instruction Type:Patient Education Patient Instructions Indication:Recurrent cold sores Start:15-Nov-2019 Instruction Type:Provider Instructions for Treatment How to access health informa tion online Indication:Nonsmoker Start:01-Aug-2019 Instruction Type:Patient Education How to access health informa tion online - Detail Indication:Nonsmoker Start:01-Aug-2019 Instruction Type:Patient Education Patient Instructions Indication:BMI 39.0-39.9,adult Start:01-Aug-2019 Instruction Type:Provider Instructions for Treatment How to access health informa tion online Indication:Nonsmoker Start:18-Jul-2019 Instruction Type:Patient Education How to access health informa tion online - Detail Indication:Nonsmoker Start:18-Jul-2019 Instruction Type:Patient Education Patient Instructions Indication:Nonsmoker Start:18-Jul-2019 Instruction Type:Provider Instructions for Treatment How to access health informa tion online Indication:BMI 40.0-44.9, adult Start:27-Jun-2019 Instruction Type:Patient Education How to access health informa tion online - Detail Indication:BMI 40.0-44.9, adult Start:27-Jun-2019 Instruction Type:Patient Education Patient Instructions Indication:SOB (shortness of breath) Start:27-Jun-2019 Instruction Type:Provider Instructions for Treatment How to access health informa tion online Indication:Nonsmoker Start:27-Apr-2019 Instruction Type:Patient Education How to access health informa tion online - Detail Indication:Nonsmoker Start:27-Apr-2019 Instruction Type:Patient Education Patient Instructions Indication:Nonsmoker Start:27-Apr-2019 Instruction Type:Provider Instructions for Treatment How to access health informa tion online Indication:Nonsmoker Start:29-Dec-2018 Instruction Type:Patient Education How to access health informa tion online - Detail Indication:Nonsmoker Start:29-Dec-2018 Instruction Type:Patient Education Patient Instructions Indication:Nonsmoker Start:29-Dec-2018 Instruction Type:Provider Instructions for Treatment DISCONTINUED - TSH (THYROID STIMULATING HORMONE) (84344) Indication:Intrinsic asthma Start:09-Aug-2018 Instruction Type:Patient Education DISCONTINUED - METABOLIC MANRIQUE EL, COMPREHENSIVE (00701) Indication:GERD (gastroesophageal reflux disease) Start:09-Aug-2018 Instruction Type:Patient Education DISCONTINUED - CBC, PLATELET S & MANUAL DIFF (43585) Indication:GERD (gastroesophageal reflux disease) Start:09-Aug-2018 Instruction Type:Patient Education How to access health informa tion online Indication:Nonsmoker Start:09-Aug-2018 Instruction Type:Patient Education How to access health informa tion online - Detail Indication:Nonsmoker Start:09-Aug-2018 Instruction Type:Patient Education Patient Instructions Indication:Encounter for screening for lipid disorder Start:09-Aug-2018 Instruction Type:Provider Instructions for Treatment How to access health informa tion online Indication:BMI 37.0-37.9, adult Start:29-Sep-2017 Instruction Type:Patient Education How to access health informa tion online - Detail Indication:BMI 37.0-37.9, adult Start:29-Sep-2017 Instruction Type:Patient Education Patient Instructions Indication:BMI 37.0-37.9, adult Start:29-Sep-2017 Instruction Type:Provider Instructions for Treatment How to access health informa tion online Indication:BMI 39.0-39.9,adult Start:01-Sep-2017 Instruction Type:Patient Education How to access health informa tion online - Detail Indication:BMI 39.0-39.9,adult Start:01-Sep-2017 Instruction Type:Patient Education Patient Instructions Indication:Upper respiratory virus Start:01-Sep-2017 Instruction Type:Provider Instructions for Treatment How to access health informa tion online Indication:Nonsmoker Start:03-Jul-2017 Instruction Type:Patient Education How to access health informa tion online - Detail Indication:Nonsmoker Start:03-Jul-2017 Instruction Type:Patient Education Patient Instructions Indication:Nonsmoker Start:03-Jul-2017 Instruction Type:Provider Instructions for Treatment How to access health informa tion online Indication:Impaired fasting glucose Start:09-Mar-2017 Instruction Type:Patient Education How to access health informa tion online - Detail Indication:Impaired fasting glucose Start:09-Mar-2017 Instruction Type:Patient Education Patient Instructions Indication:Impaired fasting glucose Start:09-Mar-2017 Instruction Type:Provider Instructions for Treatment How to access health informa tion online Indication:Intrinsic asthma Start:19-Nov-2016 Instruction Type:Patient Education How to access health informa tion online - Detail Indication:Intrinsic asthma Start:19-Nov-2016 Instruction Type:Patient Education Patient Instructions Indication:Intrinsic asthma Start:19-Nov-2016 Instruction Type:Provider Instructions for Treatment How to access health informa tion online Indication:Vitamin D deficiency, unspecified Start:21-Jul-2016 Instruction Type:Patient Education How to access health informa tion online - Detail Indication:Vitamin D deficiency, unspecified Start:21-Jul-2016 Instruction Type:Patient Education Patient Instructions Indication:Vitamin D deficiency, unspecified Start:21-Jul-2016 Instruction Type:Provider Instructions for Treatment How to access health informa tion online Indication:Vitamin D deficiency, unspecified Start:01-Feb-2016 Instruction Type:Patient Education How to access health informa tion online - Detail Indication:Vitamin D deficiency, unspecified Start:01-Feb-2016 Instruction Type:Patient Education Patient Instructions Indication:Vitamin D deficiency, unspecified Start:01-Feb-2016 Instruction Type:Provider Instructions for Treatment How to access health informa tion online Indication:Unspecified asthma with (acute) exacerbation Start:04-Dec-2015 Instruction Type:Patient Education How to access health informa tion online - Detail Indication:Unspecified asthma with (acute) exacerbation Start:04-Dec-2015 Instruction Type:Patient Education Patient Instructions Indication:Unspecified asthma with (acute) exacerbation Start:04-Dec-2015 Instruction Type:Provider Instructions for Treatment How to access health informa tion online Indication:Recurrent cold sores Start:16-Oct-2015 Instruction Type:Patient Education How to access health informa tion online - Detail Indication:Recurrent cold sores Start:16-Oct-2015 Instruction Type:Patient Education Patient Instructions Indication:Recurrent cold sores Start:16-Oct-2015 Instruction Type:Provider Instructions for Treatment How to access health informa tion online Indication:Vitamin D deficiency, unspecified Start:16-Jul-2015 Instruction Type:Patient Education How to access health informa tion online - Detail Indication:Vitamin D deficiency, unspecified Start:16-Jul-2015 Instruction Type:Patient Education Patient Instructions Indication:Vitamin D deficiency, unspecified Start:16-Jul-2015 Instruction Type:Provider Instructions for Treatment How to access health informa tion online - Detail Indication:Obesity Start:16-Apr-2015 Instruction Type:Patient Education Patient Instructions Indication:Obesity Start:16-Apr-2015 Instruction Type:Provider Instructions for Treatment How to access health informa tion online Indication:Subcutaneous nodule Start:19-Mar-2015 Instruction Type:Patient Education How to access health informa tion online - Detail Indication:Subcutaneous nodule Start:19-Mar-2015 Instruction Type:Patient Education Patient Instructions Indication:Subcutaneous nodule Start:19-Mar-2015 Instruction Type:Provider Instructions for Treatment How to access health informa tion online Indication:Vitamin D deficiency, unspecified Start:22-Jan-2015 Instruction Type:Patient Education How to access health informa tion online - Detail Indication:Vitamin D deficiency, unspecified Start:22-Jan-2015 Instruction Type:Patient Education Patient Instructions Indication:Vitamin D deficiency, unspecified Start:22-Jan-2015 Instruction Type:Provider Instructions for Treatment Patient Instructions Indication:Obesity Start:29-Sep-2013 Instruction Type:Provider Instructions for Treatment Patient Instructions Indication:Fatigue Start:18-Jun-2012 Instruction Type:Provider Instructions for Treatment [facility]; [facility] Work Phone: Instructions* Name Dates Details Patient Instructions Indication:Nonsmoker Start:03-Nov-2022 Instruction Type:Provider Instructions for Treatment How to Access Health Informa tion Online using Patient Portal and [employer]rd [employer] Apps Indication:Nonsmoker Start:03-Nov-2022 Instruction Type:Patient Education Patient Instructions Indication:Preop examination Start:19-Aug-2022 Instruction Type:Provider Instructions for Treatment How to Access Health Informa tion Online using Patient Portal and [employer]rd [employer] Apps Indication:Preop examination Start:19-Aug-2022 Instruction Type:Patient Education Patient Instructions Indication:BMI 37.0-37.9, adult Start:30-Apr-2022 Instruction Type:Provider Instructions for Treatment How to Access Health Informa tion Online using Patient Portal and 3rd [employer] Apps Indication:BMI 37.0-37.9, adult Start:30-Apr-2022 Instruction Type:Patient Education Patient Instructions Indication:Nonsmoker Start:15-Jul-2021 Instruction Type:Provider Instructions for Treatment How to Access Health Informa tion Online using Patient Portal and 3rd [employer] Apps Indication:Nonsmoker Start:15-Jul-2021 Instruction Type:Patient Education How to access health informa tion online Indication:Nonsmoker Start:20-Aug-2020 Instruction Type:Patient Education How to access health informa tion online - Detail Indication:Nonsmoker Start:20-Aug-2020 Instruction Type:Patient Education Patient Instructions Indication:Nonsmoker Start:20-Aug-2020 Instruction Type:Provider Instructions for Treatment How to access health informa tion online Indication:Nonsmoker Start:16-Apr-2020 Instruction Type:Patient Education How to access health informa tion online - Detail Indication:Nonsmoker Start:16-Apr-2020 Instruction Type:Patient Education Patient Instructions Indication:BMI 39.0-39.9,adult Start:16-Apr-2020 Instruction Type:Provider Instructions for Treatment How to access health informa tion online Indication:Nonsmoker Start:15-Nov-2019 Instruction Type:Patient Education How to access health informa tion online - Detail Indication:Nonsmoker Start:15-Nov-2019 Instruction Type:Patient Education Patient Instructions Indication:Recurrent cold sores Start:15-Nov-2019 Instruction Type:Provider Instructions for Treatment How to access health informa tion online Indication:Nonsmoker Start:01-Aug-2019 Instruction Type:Patient Education How to access health informa tion online - Detail Indication:Nonsmoker Start:01-Aug-2019 Instruction Type:Patient Education Patient Instructions Indication:BMI 39.0-39.9,adult Start:01-Aug-2019 Instruction Type:Provider Instructions for Treatment How to access health informa tion online Indication:Nonsmoker Start:18-Jul-2019 Instruction Type:Patient Education How to access health informa tion online - Detail Indication:Nonsmoker Start:18-Jul-2019 Instruction Type:Patient Education Patient Instructions Indication:Nonsmoker Start:18-Jul-2019 Instruction Type:Provider Instructions for Treatment How to access health informa tion online Indication:BMI 40.0-44.9, adult Start:27-Jun-2019 Instruction Type:Patient Education How to access health informa tion online - Detail Indication:BMI 40.0-44.9, adult Start:27-Jun-2019 Instruction Type:Patient Education Patient Instructions Indication:SOB (shortness of breath) Start:27-Jun-2019 Instruction Type:Provider Instructions for Treatment How to access health informa tion online Indication:Nonsmoker Start:27-Apr-2019 Instruction Type:Patient Education How to access health informa tion online - Detail Indication:Nonsmoker Start:27-Apr-2019 Instruction Type:Patient Education Patient Instructions Indication:Nonsmoker Start:27-Apr-2019 Instruction Type:Provider Instructions for Treatment How to access health informa tion online Indication:Nonsmoker Start:29-Dec-2018 Instruction Type:Patient Education How to access health informa tion online - Detail Indication:Nonsmoker Start:29-Dec-2018 Instruction Type:Patient Education Patient Instructions Indication:Nonsmoker Start:29-Dec-2018 Instruction Type:Provider Instructions for Treatment DISCONTINUED - TSH (THYROID STIMULATING HORMONE) (52282) Indication:Intrinsic asthma Start:09-Aug-2018 Instruction Type:Patient Education DISCONTINUED - METABOLIC MANRIQUE EL, COMPREHENSIVE (36927) Indication:GERD (gastroesophageal reflux disease) Start:09-Aug-2018 Instruction Type:Patient Education DISCONTINUED - CBC, PLATELET S & MANUAL DIFF (98173) Indication:GERD (gastroesophageal reflux disease) Start:09-Aug-2018 Instruction Type:Patient Education How to access health informa tion online Indication:Nonsmoker Start:09-Aug-2018 Instruction Type:Patient Education How to access health informa tion online - Detail Indication:Nonsmoker Start:09-Aug-2018 Instruction Type:Patient Education Patient Instructions Indication:Encounter for screening for lipid disorder Start:09-Aug-2018 Instruction Type:Provider Instructions for Treatment How to access health informa tion online Indication:BMI 37.0-37.9, adult Start:29-Sep-2017 Instruction Type:Patient Education How to access health informa tion online - Detail Indication:BMI 37.0-37.9, adult Start:29-Sep-2017 Instruction Type:Patient Education Patient Instructions Indication:BMI 37.0-37.9, adult Start:29-Sep-2017 Instruction Type:Provider Instructions for Treatment How to access health informa tion online Indication:BMI 39.0-39.9,adult Start:01-Sep-2017 Instruction Type:Patient Education How to access health informa tion online - Detail Indication:BMI 39.0-39.9,adult Start:01-Sep-2017 Instruction Type:Patient Education Patient Instructions Indication:Upper respiratory virus Start:01-Sep-2017 Instruction Type:Provider Instructions for Treatment How to access health informa tion online Indication:Nonsmoker Start:03-Jul-2017 Instruction Type:Patient Education How to access health informa tion online - Detail Indication:Nonsmoker Start:03-Jul-2017 Instruction Type:Patient Education Patient Instructions Indication:Nonsmoker Start:03-Jul-2017 Instruction Type:Provider Instructions for Treatment How to access health informa tion online Indication:Impaired fasting glucose Start:09-Mar-2017 Instruction Type:Patient Education How to access health informa tion online - Detail Indication:Impaired fasting glucose Start:09-Mar-2017 Instruction Type:Patient Education Patient Instructions Indication:Impaired fasting glucose Start:09-Mar-2017 Instruction Type:Provider Instructions for Treatment How to access health informa tion online Indication:Intrinsic asthma Start:19-Nov-2016 Instruction Type:Patient Education How to access health informa tion online - Detail Indication:Intrinsic asthma Start:19-Nov-2016 Instruction Type:Patient Education Patient Instructions Indication:Intrinsic asthma Start:19-Nov-2016 Instruction Type:Provider Instructions for Treatment How to access health informa tion online Indication:Vitamin D deficiency, unspecified Start:21-Jul-2016 Instruction Type:Patient Education How to access health informa tion online - Detail Indication:Vitamin D deficiency, unspecified Start:21-Jul-2016 Instruction Type:Patient Education Patient Instructions Indication:Vitamin D deficiency, unspecified Start:21-Jul-2016 Instruction Type:Provider Instructions for Treatment How to access health informa tion online Indication:Vitamin D deficiency, unspecified Start:01-Feb-2016 Instruction Type:Patient Education How to access health informa tion online - Detail Indication:Vitamin D deficiency, unspecified Start:01-Feb-2016 Instruction Type:Patient Education Patient Instructions Indication:Vitamin D deficiency, unspecified Start:01-Feb-2016 Instruction Type:Provider Instructions for Treatment How to access health informa tion online Indication:Unspecified asthma with (acute) exacerbation Start:04-Dec-2015 Instruction Type:Patient Education How to access health informa tion online - Detail Indication:Unspecified asthma with (acute) exacerbation Start:04-Dec-2015 Instruction Type:Patient Education Patient Instructions Indication:Unspecified asthma with (acute) exacerbation Start:04-Dec-2015 Instruction Type:Provider Instructions for Treatment How to access health informa tion online Indication:Recurrent cold sores Start:16-Oct-2015 Instruction Type:Patient Education How to access health informa tion online - Detail Indication:Recurrent cold sores Start:16-Oct-2015 Instruction Type:Patient Education Patient Instructions Indication:Recurrent cold sores Start:16-Oct-2015 Instruction Type:Provider Instructions for Treatment How to access health informa tion online Indication:Vitamin D deficiency, unspecified Start:16-Jul-2015 Instruction Type:Patient Education How to access health informa tion online - Detail Indication:Vitamin D deficiency, unspecified Start:16-Jul-2015 Instruction Type:Patient Education Patient Instructions Indication:Vitamin D deficiency, unspecified Start:16-Jul-2015 Instruction Type:Provider Instructions for Treatment How to access health informa tion online - Detail Indication:Obesity Start:16-Apr-2015 Instruction Type:Patient Education Patient Instructions Indication:Obesity Start:16-Apr-2015 Instruction Type:Provider Instructions for Treatment How to access health informa tion online Indication:Subcutaneous nodule Start:19-Mar-2015 Instruction Type:Patient Education How to access health informa tion online - Detail Indication:Subcutaneous nodule Start:19-Mar-2015 Instruction Type:Patient Education Patient Instructions Indication:Subcutaneous nodule Start:19-Mar-2015 Instruction Type:Provider Instructions for Treatment How to access health informa tion online Indication:Vitamin D deficiency, unspecified Start:22-Jan-2015 Instruction Type:Patient Education How to access health informa tion online - Detail Indication:Vitamin D deficiency, unspecified Start:22-Jan-2015 Instruction Type:Patient Education Patient Instructions Indication:Vitamin D deficiency, unspecified Start:22-Jan-2015 Instruction Type:Provider Instructions for Treatment Patient Instructions Indication:Obesity Start:29-Sep-2013 Instruction Type:Provider Instructions for Treatment Patient Instructions Indication:Fatigue Start:18-Jun-2012 Instruction Type:Provider Instructions for Treatment [facility]; [facility] Work Phone: Instructions* Name Dates Details Patient Instructions Indication:Nonsmoker Start:03-Nov-2022 Instruction Type:Provider Instructions for Treatment How to Access Health Informa tion Online using Patient Portal and [employer]rd [employer] Apps Indication:Nonsmoker Start:03-Nov-2022 Instruction Type:Patient Education Patient Instructions Indication:Preop examination Start:19-Aug-2022 Instruction Type:Provider Instructions for Treatment How to Access Health Informa tion Online using Patient Portal and 3rd [employer] Apps Indication:Preop examination Start:19-Aug-2022 Instruction Type:Patient Education Patient Instructions Indication:BMI 37.0-37.9, adult Start:30-Apr-2022 Instruction Type:Provider Instructions for Treatment How to Access Health Informa tion Online using Patient Portal and 3rd [employer] Apps Indication:BMI 37.0-37.9, adult Start:30-Apr-2022 Instruction Type:Patient Education Patient Instructions Indication:Nonsmoker Start:15-Jul-2021 Instruction Type:Provider Instructions for Treatment How to Access Health Informa tion Online using Patient Portal and [employer]rd [employer] Apps Indication:Nonsmoker Start:15-Jul-2021 Instruction Type:Patient Education How to access health informa tion online Indication:Nonsmoker Start:20-Aug-2020 Instruction Type:Patient Education How to access health informa tion online - Detail Indication:Nonsmoker Start:20-Aug-2020 Instruction Type:Patient Education Patient Instructions Indication:Nonsmoker Start:20-Aug-2020 Instruction Type:Provider Instructions for Treatment How to access health informa tion online Indication:Nonsmoker Start:16-Apr-2020 Instruction Type:Patient Education How to access health informa tion online - Detail Indication:Nonsmoker Start:16-Apr-2020 Instruction Type:Patient Education Patient Instructions Indication:BMI 39.0-39.9,adult Start:16-Apr-2020 Instruction Type:Provider Instructions for Treatment How to access health informa tion online Indication:Nonsmoker Start:15-Nov-2019 Instruction Type:Patient Education How to access health informa tion online - Detail Indication:Nonsmoker Start:15-Nov-2019 Instruction Type:Patient Education Patient Instructions Indication:Recurrent cold sores Start:15-Nov-2019 Instruction Type:Provider Instructions for Treatment How to access health informa tion online Indication:Nonsmoker Start:01-Aug-2019 Instruction Type:Patient Education How to access health informa tion online - Detail Indication:Nonsmoker Start:01-Aug-2019 Instruction Type:Patient Education Patient Instructions Indication:BMI 39.0-39.9,adult Start:01-Aug-2019 Instruction Type:Provider Instructions for Treatment How to access health informa tion online Indication:Nonsmoker Start:18-Jul-2019 Instruction Type:Patient Education How to access health informa tion online - Detail Indication:Nonsmoker Start:18-Jul-2019 Instruction Type:Patient Education Patient Instructions Indication:Nonsmoker Start:18-Jul-2019 Instruction Type:Provider Instructions for Treatment How to access health informa tion online Indication:BMI 40.0-44.9, adult Start:27-Jun-2019 Instruction Type:Patient Education How to access health informa tion online - Detail Indication:BMI 40.0-44.9, adult Start:27-Jun-2019 Instruction Type:Patient Education Patient Instructions Indication:SOB (shortness of breath) Start:27-Jun-2019 Instruction Type:Provider Instructions for Treatment How to access health informa tion online Indication:Nonsmoker Start:27-Apr-2019 Instruction Type:Patient Education How to access health informa tion online - Detail Indication:Nonsmoker Start:27-Apr-2019 Instruction Type:Patient Education Patient Instructions Indication:Nonsmoker Start:27-Apr-2019 Instruction Type:Provider Instructions for Treatment How to access health informa tion online Indication:Nonsmoker Start:29-Dec-2018 Instruction Type:Patient Education How to access health informa tion online - Detail Indication:Nonsmoker Start:29-Dec-2018 Instruction Type:Patient Education Patient Instructions Indication:Nonsmoker Start:29-Dec-2018 Instruction Type:Provider Instructions for Treatment DISCONTINUED - TSH (THYROID STIMULATING HORMONE) (20375) Indication:Intrinsic asthma Start:09-Aug-2018 Instruction Type:Patient Education DISCONTINUED - METABOLIC MANRIQUE EL, COMPREHENSIVE (52076) Indication:GERD (gastroesophageal reflux disease) Start:09-Aug-2018 Instruction Type:Patient Education DISCONTINUED - CBC, PLATELET S & MANUAL DIFF (70479) Indication:GERD (gastroesophageal reflux disease) Start:09-Aug-2018 Instruction Type:Patient Education How to access health informa tion online Indication:Nonsmoker Start:09-Aug-2018 Instruction Type:Patient Education How to access health informa tion online - Detail Indication:Nonsmoker Start:09-Aug-2018 Instruction Type:Patient Education Patient Instructions Indication:Encounter for screening for lipid disorder Start:09-Aug-2018 Instruction Type:Provider Instructions for Treatment How to access health informa tion online Indication:BMI 37.0-37.9, adult Start:29-Sep-2017 Instruction Type:Patient Education How to access health informa tion online - Detail Indication:BMI 37.0-37.9, adult Start:29-Sep-2017 Instruction Type:Patient Education Patient Instructions Indication:BMI 37.0-37.9, adult Start:29-Sep-2017 Instruction Type:Provider Instructions for Treatment How to access health informa tion online Indication:BMI 39.0-39.9,adult Start:01-Sep-2017 Instruction Type:Patient Education How to access health informa tion online - Detail Indication:BMI 39.0-39.9,adult Start:01-Sep-2017 Instruction Type:Patient Education Patient Instructions Indication:Upper respiratory virus Start:01-Sep-2017 Instruction Type:Provider Instructions for Treatment How to access health informa tion online Indication:Nonsmoker Start:03-Jul-2017 Instruction Type:Patient Education How to access health informa tion online - Detail Indication:Nonsmoker Start:03-Jul-2017 Instruction Type:Patient Education Patient Instructions Indication:Nonsmoker Start:03-Jul-2017 Instruction Type:Provider Instructions for Treatment How to access health informa tion online Indication:Impaired fasting glucose Start:09-Mar-2017 Instruction Type:Patient Education How to access health informa tion online - Detail Indication:Impaired fasting glucose Start:09-Mar-2017 Instruction Type:Patient Education Patient Instructions Indication:Impaired fasting glucose Start:09-Mar-2017 Instruction Type:Provider Instructions for Treatment How to access health informa tion online Indication:Intrinsic asthma Start:19-Nov-2016 Instruction Type:Patient Education How to access health informa tion online - Detail Indication:Intrinsic asthma Start:19-Nov-2016 Instruction Type:Patient Education Patient Instructions Indication:Intrinsic asthma Start:19-Nov-2016 Instruction Type:Provider Instructions for Treatment How to access health informa tion online Indication:Vitamin D deficiency, unspecified Start:21-Jul-2016 Instruction Type:Patient Education How to access health informa tion online - Detail Indication:Vitamin D deficiency, unspecified Start:21-Jul-2016 Instruction Type:Patient Education Patient Instructions Indication:Vitamin D deficiency, unspecified Start:21-Jul-2016 Instruction Type:Provider Instructions for Treatment How to access health informa tion online Indication:Vitamin D deficiency, unspecified Start:01-Feb-2016 Instruction Type:Patient Education How to access health informa tion online - Detail Indication:Vitamin D deficiency, unspecified Start:01-Feb-2016 Instruction Type:Patient Education Patient Instructions Indication:Vitamin D deficiency, unspecified Start:01-Feb-2016 Instruction Type:Provider Instructions for Treatment How to access health informa tion online Indication:Unspecified asthma with (acute) exacerbation Start:04-Dec-2015 Instruction Type:Patient Education How to access health informa tion online - Detail Indication:Unspecified asthma with (acute) exacerbation Start:04-Dec-2015 Instruction Type:Patient Education Patient Instructions Indication:Unspecified asthma with (acute) exacerbation Start:04-Dec-2015 Instruction Type:Provider Instructions for Treatment How to access health informa tion online Indication:Recurrent cold sores Start:16-Oct-2015 Instruction Type:Patient Education How to access health informa tion online - Detail Indication:Recurrent cold sores Start:16-Oct-2015 Instruction Type:Patient Education Patient Instructions Indication:Recurrent cold sores Start:16-Oct-2015 Instruction Type:Provider Instructions for Treatment How to access health informa tion online Indication:Vitamin D deficiency, unspecified Start:16-Jul-2015 Instruction Type:Patient Education How to access health informa tion online - Detail Indication:Vitamin D deficiency, unspecified Start:16-Jul-2015 Instruction Type:Patient Education Patient Instructions Indication:Vitamin D deficiency, unspecified Start:16-Jul-2015 Instruction Type:Provider Instructions for Treatment How to access health informa tion online - Detail Indication:Obesity Start:16-Apr-2015 Instruction Type:Patient Education Patient Instructions Indication:Obesity Start:16-Apr-2015 Instruction Type:Provider Instructions for Treatment How to access health informa tion online Indication:Subcutaneous nodule Start:19-Mar-2015 Instruction Type:Patient Education How to access health informa tion online - Detail Indication:Subcutaneous nodule Start:19-Mar-2015 Instruction Type:Patient Education Patient Instructions Indication:Subcutaneous nodule Start:19-Mar-2015 Instruction Type:Provider Instructions for Treatment How to access health informa tion online Indication:Vitamin D deficiency, unspecified Start:22-Jan-2015 Instruction Type:Patient Education How to access health informa tion online - Detail Indication:Vitamin D deficiency, unspecified Start:22-Jan-2015 Instruction Type:Patient Education Patient Instructions Indication:Vitamin D deficiency, unspecified Start:22-Jan-2015 Instruction Type:Provider Instructions for Treatment Patient Instructions Indication:Obesity Start:29-Sep-2013 Instruction Type:Provider Instructions for Treatment Patient Instructions Indication:Fatigue Start:18-Jun-2012 Instruction Type:Provider Instructions for Treatment [facility] Work Phone: Instructions* Name Dates Details Patient Instructions Indication:Nonsmoker Start:17-Dec-2022 Instruction Type:Provider Instructions for Treatment How to Access Health Informa tion Online using Patient Portal and [employer]rd [employer] Apps Indication:Nonsmoker Start:17-Dec-2022 Instruction Type:Patient Education Patient Instructions Indication:Nonsmoker Start:03-Nov-2022 Instruction Type:Provider Instructions for Treatment How to Access Health Informa tion Online using Patient Portal and [employer]rd [employer] Apps Indication:Nonsmoker Start:03-Nov-2022 Instruction Type:Patient Education Patient Instructions Indication:Preop examination Start:19-Aug-2022 Instruction Type:Provider Instructions for Treatment How to Access Health Informa tion Online using Patient Portal and [employer]rd [employer] Apps Indication:Preop examination Start:19-Aug-2022 Instruction Type:Patient Education Patient Instructions Indication:BMI 37.0-37.9, adult Start:30-Apr-2022 Instruction Type:Provider Instructions for Treatment How to Access Health Informa tion Online using Patient Portal and [employer]rd [employer] Apps Indication:BMI 37.0-37.9, adult Start:30-Apr-2022 Instruction Type:Patient Education Patient Instructions Indication:Nonsmoker Start:15-Jul-2021 Instruction Type:Provider Instructions for Treatment How to Access Health Informa tion Online using Patient Portal and [employer]rd [employer] Apps Indication:Nonsmoker Start:15-Jul-2021 Instruction Type:Patient Education How to access health informa tion online Indication:Nonsmoker Start:20-Aug-2020 Instruction Type:Patient Education How to access health informa tion online - Detail Indication:Nonsmoker Start:20-Aug-2020 Instruction Type:Patient Education Patient Instructions Indication:Nonsmoker Start:20-Aug-2020 Instruction Type:Provider Instructions for Treatment How to access health informa tion online Indication:Nonsmoker Start:16-Apr-2020 Instruction Type:Patient Education How to access health informa tion online - Detail Indication:Nonsmoker Start:16-Apr-2020 Instruction Type:Patient Education Patient Instructions Indication:BMI 39.0-39.9,adult Start:16-Apr-2020 Instruction Type:Provider Instructions for Treatment How to access health informa tion online Indication:Nonsmoker Start:15-Nov-2019 Instruction Type:Patient Education How to access health informa tion online - Detail Indication:Nonsmoker Start:15-Nov-2019 Instruction Type:Patient Education Patient Instructions Indication:Recurrent cold sores Start:15-Nov-2019 Instruction Type:Provider Instructions for Treatment How to access health informa tion online Indication:Nonsmoker Start:01-Aug-2019 Instruction Type:Patient Education How to access health informa tion online - Detail Indication:Nonsmoker Start:01-Aug-2019 Instruction Type:Patient Education Patient Instructions Indication:BMI 39.0-39.9,adult Start:01-Aug-2019 Instruction Type:Provider Instructions for Treatment How to access health informa tion online Indication:Nonsmoker Start:18-Jul-2019 Instruction Type:Patient Education How to access health informa tion online - Detail Indication:Nonsmoker Start:18-Jul-2019 Instruction Type:Patient Education Patient Instructions Indication:Nonsmoker Start:18-Jul-2019 Instruction Type:Provider Instructions for Treatment How to access health informa tion online Indication:BMI 40.0-44.9, adult Start:27-Jun-2019 Instruction Type:Patient Education How to access health informa tion online - Detail Indication:BMI 40.0-44.9, adult Start:27-Jun-2019 Instruction Type:Patient Education Patient Instructions Indication:SOB (shortness of breath) Start:27-Jun-2019 Instruction Type:Provider Instructions for Treatment How to access health informa tion online Indication:Nonsmoker Start:27-Apr-2019 Instruction Type:Patient Education How to access health informa tion online - Detail Indication:Nonsmoker Start:27-Apr-2019 Instruction Type:Patient Education Patient Instructions Indication:Nonsmoker Start:27-Apr-2019 Instruction Type:Provider Instructions for Treatment How to access health informa tion online Indication:Nonsmoker Start:29-Dec-2018 Instruction Type:Patient Education How to access health informa tion online - Detail Indication:Nonsmoker Start:29-Dec-2018 Instruction Type:Patient Education Patient Instructions Indication:Nonsmoker Start:29-Dec-2018 Instruction Type:Provider Instructions for Treatment DISCONTINUED - TSH (THYROID STIMULATING HORMONE) (87712) Indication:Intrinsic asthma Start:09-Aug-2018 Instruction Type:Patient Education DISCONTINUED - METABOLIC MANRIQUE EL, COMPREHENSIVE (22614) Indication:GERD (gastroesophageal reflux disease) Start:09-Aug-2018 Instruction Type:Patient Education DISCONTINUED - CBC, PLATELET S & MANUAL DIFF (66637) Indication:GERD (gastroesophageal reflux disease) Start:09-Aug-2018 Instruction Type:Patient Education How to access health informa tion online Indication:Nonsmoker Start:09-Aug-2018 Instruction Type:Patient Education How to access health informa tion online - Detail Indication:Nonsmoker Start:09-Aug-2018 Instruction Type:Patient Education Patient Instructions Indication:Encounter for screening for lipid disorder Start:09-Aug-2018 Instruction Type:Provider Instructions for Treatment How to access health informa tion online Indication:BMI 37.0-37.9, adult Start:29-Sep-2017 Instruction Type:Patient Education How to access health informa tion online - Detail Indication:BMI 37.0-37.9, adult Start:29-Sep-2017 Instruction Type:Patient Education Patient Instructions Indication:BMI 37.0-37.9, adult Start:29-Sep-2017 Instruction Type:Provider Instructions for Treatment How to access health informa tion online Indication:BMI 39.0-39.9,adult Start:01-Sep-2017 Instruction Type:Patient Education How to access health informa tion online - Detail Indication:BMI 39.0-39.9,adult Start:01-Sep-2017 Instruction Type:Patient Education Patient Instructions Indication:Upper respiratory virus Start:01-Sep-2017 Instruction Type:Provider Instructions for Treatment How to access health informa tion online Indication:Nonsmoker Start:03-Jul-2017 Instruction Type:Patient Education How to access health informa tion online - Detail Indication:Nonsmoker Start:03-Jul-2017 Instruction Type:Patient Education Patient Instructions Indication:Nonsmoker Start:03-Jul-2017 Instruction Type:Provider Instructions for Treatment How to access health informa tion online Indication:Impaired fasting glucose Start:09-Mar-2017 Instruction Type:Patient Education How to access health informa tion online - Detail Indication:Impaired fasting glucose Start:09-Mar-2017 Instruction Type:Patient Education Patient Instructions Indication:Impaired fasting glucose Start:09-Mar-2017 Instruction Type:Provider Instructions for Treatment How to access health informa tion online Indication:Intrinsic asthma Start:19-Nov-2016 Instruction Type:Patient Education How to access health informa tion online - Detail Indication:Intrinsic asthma Start:19-Nov-2016 Instruction Type:Patient Education Patient Instructions Indication:Intrinsic asthma Start:19-Nov-2016 Instruction Type:Provider Instructions for Treatment How to access health informa tion online Indication:Vitamin D deficiency, unspecified Start:21-Jul-2016 Instruction Type:Patient Education How to access health informa tion online - Detail Indication:Vitamin D deficiency, unspecified Start:21-Jul-2016 Instruction Type:Patient Education Patient Instructions Indication:Vitamin D deficiency, unspecified Start:21-Jul-2016 Instruction Type:Provider Instructions for Treatment How to access health informa tion online Indication:Vitamin D deficiency, unspecified Start:01-Feb-2016 Instruction Type:Patient Education How to access health informa tion online - Detail Indication:Vitamin D deficiency, unspecified Start:01-Feb-2016 Instruction Type:Patient Education Patient Instructions Indication:Vitamin D deficiency, unspecified Start:01-Feb-2016 Instruction Type:Provider Instructions for Treatment How to access health informa tion online Indication:Mild intermittent asthma with acute exacerbation Start:04-Dec-2015 Instruction Type:Patient Education How to access health informa tion online - Detail Indication:Mild intermittent asthma with acute exacerbation Start:04-Dec-2015 Instruction Type:Patient Education Patient Instructions Indication:Mild intermittent asthma with acute exacerbation Start:04-Dec-2015 Instruction Type:Provider Instructions for Treatment How to access health informa tion online Indication:Recurrent cold sores Start:16-Oct-2015 Instruction Type:Patient Education How to access health informa tion online - Detail Indication:Recurrent cold sores Start:16-Oct-2015 Instruction Type:Patient Education Patient Instructions Indication:Recurrent cold sores Start:16-Oct-2015 Instruction Type:Provider Instructions for Treatment How to access health informa tion online Indication:Vitamin D deficiency, unspecified Start:16-Jul-2015 Instruction Type:Patient Education How to access health informa tion online - Detail Indication:Vitamin D deficiency, unspecified Start:16-Jul-2015 Instruction Type:Patient Education Patient Instructions Indication:Vitamin D deficiency, unspecified Start:16-Jul-2015 Instruction Type:Provider Instructions for Treatment How to access health informa tion online - Detail Indication:Obesity Start:16-Apr-2015 Instruction Type:Patient Education Patient Instructions Indication:Obesity Start:16-Apr-2015 Instruction Type:Provider Instructions for Treatment How to access health informa tion online Indication:Subcutaneous nodule Start:19-Mar-2015 Instruction Type:Patient Education How to access health informa tion online - Detail Indication:Subcutaneous nodule Start:19-Mar-2015 Instruction Type:Patient Education Patient Instructions Indication:Subcutaneous nodule Start:19-Mar-2015 Instruction Type:Provider Instructions for Treatment How to access health informa tion online Indication:Vitamin D deficiency, unspecified Start:22-Jan-2015 Instruction Type:Patient Education How to access health informa tion online - Detail Indication:Vitamin D deficiency, unspecified Start:22-Jan-2015 Instruction Type:Patient Education Patient Instructions Indication:Vitamin D deficiency, unspecified Start:22-Jan-2015 Instruction Type:Provider Instructions for Treatment Patient Instructions Indication:Obesity Start:29-Sep-2013 Instruction Type:Provider Instructions for Treatment Patient Instructions Indication:Fatigue Start:18-Jun-2012 Instruction Type:Provider Instructions for Treatment [facility]; [facility] Work Phone: Instructions* Name Dates Details Patient Instructions Indication:Mild intermittent asthma with acute exacerbation Start:24-Dec-2022 Instruction Type:Provider Instructions for Treatment How to Access Health Informa tion Online using Patient Portal and [employer] Apps Indication:Mild intermittent asthma with acute exacerbation Start:24-Dec-2022 Instruction Type:Patient Education Patient Instructions Indication:Nonsmoker Start:17-Dec-2022 Instruction Type:Provider Instructions for Treatment How to Access Health Informa tion Online using Patient Portal and [employer] Apps Indication:Nonsmoker Start:17-Dec-2022 Instruction Type:Patient Education Patient Instructions Indication:Nonsmoker Start:03-Nov-2022 Instruction Type:Provider Instructions for Treatment How to Access Health Informa tion Online using Patient Portal and [employer] Apps Indication:Nonsmoker Start:03-Nov-2022 Instruction Type:Patient Education Patient Instructions Indication:Preop examination Start:19-Aug-2022 Instruction Type:Provider Instructions for Treatment How to Access Health Informa tion Online using Patient Portal and [employer] Apps Indication:Preop examination Start:19-Aug-2022 Instruction Type:Patient Education Patient Instructions Indication:BMI 37.0-37.9, adult Start:30-Apr-2022 Instruction Type:Provider Instructions for Treatment How to Access Health Informa tion Online using Patient Portal and [employer] Apps Indication:BMI 37.0-37.9, adult Start:30-Apr-2022 Instruction Type:Patient Education Patient Instructions Indication:Nonsmoker Start:15-Jul-2021 Instruction Type:Provider Instructions for Treatment How to Access Health Informa tion Online using Patient Portal and [employer] Apps Indication:Nonsmoker Start:15-Jul-2021 Instruction Type:Patient Education How to access health informa tion online Indication:Nonsmoker Start:20-Aug-2020 Instruction Type:Patient Education How to access health informa tion online - Detail Indication:Nonsmoker Start:20-Aug-2020 Instruction Type:Patient Education Patient Instructions Indication:Nonsmoker Start:20-Aug-2020 Instruction Type:Provider Instructions for Treatment How to access health informa tion online Indication:Nonsmoker Start:16-Apr-2020 Instruction Type:Patient Education How to access health informa tion online - Detail Indication:Nonsmoker Start:16-Apr-2020 Instruction Type:Patient Education Patient Instructions Indication:BMI 39.0-39.9,adult Start:16-Apr-2020 Instruction Type:Provider Instructions for Treatment How to access health informa tion online Indication:Nonsmoker Start:15-Nov-2019 Instruction Type:Patient Education How to access health informa tion online - Detail Indication:Nonsmoker Start:15-Nov-2019 Instruction Type:Patient Education Patient Instructions Indication:Recurrent cold sores Start:15-Nov-2019 Instruction Type:Provider Instructions for Treatment How to access health informa tion online Indication:Nonsmoker Start:01-Aug-2019 Instruction Type:Patient Education How to access health informa tion online - Detail Indication:Nonsmoker Start:01-Aug-2019 Instruction Type:Patient Education Patient Instructions Indication:BMI 39.0-39.9,adult Start:01-Aug-2019 Instruction Type:Provider Instructions for Treatment How to access health informa tion online Indication:Nonsmoker Start:18-Jul-2019 Instruction Type:Patient Education How to access health informa tion online - Detail Indication:Nonsmoker Start:18-Jul-2019 Instruction Type:Patient Education Patient Instructions Indication:Nonsmoker Start:18-Jul-2019 Instruction Type:Provider Instructions for Treatment How to access health informa tion online Indication:BMI 40.0-44.9, adult Start:27-Jun-2019 Instruction Type:Patient Education How to access health informa tion online - Detail Indication:BMI 40.0-44.9, adult Start:27-Jun-2019 Instruction Type:Patient Education Patient Instructions Indication:SOB (shortness of breath) Start:27-Jun-2019 Instruction Type:Provider Instructions for Treatment How to access health informa tion online Indication:Nonsmoker Start:27-Apr-2019 Instruction Type:Patient Education How to access health informa tion online - Detail Indication:Nonsmoker Start:27-Apr-2019 Instruction Type:Patient Education Patient Instructions Indication:Nonsmoker Start:27-Apr-2019 Instruction Type:Provider Instructions for Treatment How to access health informa tion online Indication:Nonsmoker Start:29-Dec-2018 Instruction Type:Patient Education How to access health informa tion online - Detail Indication:Nonsmoker Start:29-Dec-2018 Instruction Type:Patient Education Patient Instructions Indication:Nonsmoker Start:29-Dec-2018 Instruction Type:Provider Instructions for Treatment DISCONTINUED - TSH (THYROID STIMULATING HORMONE) (73288) Indication:Intrinsic asthma Start:09-Aug-2018 Instruction Type:Patient Education DISCONTINUED - METABOLIC MANRIQUE EL, COMPREHENSIVE (57182) Indication:GERD (gastroesophageal reflux disease) Start:09-Aug-2018 Instruction Type:Patient Education DISCONTINUED - CBC, PLATELET S & MANUAL DIFF (93342) Indication:GERD (gastroesophageal reflux disease) Start:09-Aug-2018 Instruction Type:Patient Education How to access health informa tion online Indication:Nonsmoker Start:09-Aug-2018 Instruction Type:Patient Education How to access health informa tion online - Detail Indication:Nonsmoker Start:09-Aug-2018 Instruction Type:Patient Education Patient Instructions Indication:Encounter for screening for lipid disorder Start:09-Aug-2018 Instruction Type:Provider Instructions for Treatment How to access health informa tion online Indication:BMI 37.0-37.9, adult Start:29-Sep-2017 Instruction Type:Patient Education How to access health informa tion online - Detail Indication:BMI 37.0-37.9, adult Start:29-Sep-2017 Instruction Type:Patient Education Patient Instructions Indication:BMI 37.0-37.9, adult Start:29-Sep-2017 Instruction Type:Provider Instructions for Treatment How to access health informa tion online Indication:BMI 39.0-39.9,adult Start:01-Sep-2017 Instruction Type:Patient Education How to access health informa tion online - Detail Indication:BMI 39.0-39.9,adult Start:01-Sep-2017 Instruction Type:Patient Education Patient Instructions Indication:Upper respiratory virus Start:01-Sep-2017 Instruction Type:Provider Instructions for Treatment How to access health informa tion online Indication:Nonsmoker Start:03-Jul-2017 Instruction Type:Patient Education How to access health informa tion online - Detail Indication:Nonsmoker Start:03-Jul-2017 Instruction Type:Patient Education Patient Instructions Indication:Nonsmoker Start:03-Jul-2017 Instruction Type:Provider Instructions for Treatment How to access health informa tion online Indication:Impaired fasting glucose Start:09-Mar-2017 Instruction Type:Patient Education How to access health informa tion online - Detail Indication:Impaired fasting glucose Start:09-Mar-2017 Instruction Type:Patient Education Patient Instructions Indication:Impaired fasting glucose Start:09-Mar-2017 Instruction Type:Provider Instructions for Treatment How to access health informa tion online Indication:Intrinsic asthma Start:19-Nov-2016 Instruction Type:Patient Education How to access health informa tion online - Detail Indication:Intrinsic asthma Start:19-Nov-2016 Instruction Type:Patient Education Patient Instructions Indication:Intrinsic asthma Start:19-Nov-2016 Instruction Type:Provider Instructions for Treatment How to access health informa tion online Indication:Vitamin D deficiency, unspecified Start:21-Jul-2016 Instruction Type:Patient Education How to access health informa tion online - Detail Indication:Vitamin D deficiency, unspecified Start:21-Jul-2016 Instruction Type:Patient Education Patient Instructions Indication:Vitamin D deficiency, unspecified Start:21-Jul-2016 Instruction Type:Provider Instructions for Treatment How to access health informa tion online Indication:Vitamin D deficiency, unspecified Start:01-Feb-2016 Instruction Type:Patient Education How to access health informa tion online - Detail Indication:Vitamin D deficiency, unspecified Start:01-Feb-2016 Instruction Type:Patient Education Patient Instructions Indication:Vitamin D deficiency, unspecified Start:01-Feb-2016 Instruction Type:Provider Instructions for Treatment How to access health informa tion online Indication:Mild intermittent asthma with acute exacerbation Start:04-Dec-2015 Instruction Type:Patient Education How to access health informa tion online - Detail Indication:Mild intermittent asthma with acute exacerbation Start:04-Dec-2015 Instruction Type:Patient Education Patient Instructions Indication:Mild intermittent asthma with acute exacerbation Start:04-Dec-2015 Instruction Type:Provider Instructions for Treatment How to access health informa tion online Indication:Recurrent cold sores Start:16-Oct-2015 Instruction Type:Patient Education How to access health informa tion online - Detail Indication:Recurrent cold sores Start:16-Oct-2015 Instruction Type:Patient Education Patient Instructions Indication:Recurrent cold sores Start:16-Oct-2015 Instruction Type:Provider Instructions for Treatment How to access health informa tion online Indication:Vitamin D deficiency, unspecified Start:16-Jul-2015 Instruction Type:Patient Education How to access health informa tion online - Detail Indication:Vitamin D deficiency, unspecified Start:16-Jul-2015 Instruction Type:Patient Education Patient Instructions Indication:Vitamin D deficiency, unspecified Start:16-Jul-2015 Instruction Type:Provider Instructions for Treatment How to access health informa tion online - Detail Indication:Obesity Start:16-Apr-2015 Instruction Type:Patient Education Patient Instructions Indication:Obesity Start:16-Apr-2015 Instruction Type:Provider Instructions for Treatment How to access health informa tion online Indication:Subcutaneous nodule Start:19-Mar-2015 Instruction Type:Patient Education How to access health informa tion online - Detail Indication:Subcutaneous nodule Start:19-Mar-2015 Instruction Type:Patient Education Patient Instructions Indication:Subcutaneous nodule Start:19-Mar-2015 Instruction Type:Provider Instructions for Treatment How to access health informa tion online Indication:Vitamin D deficiency, unspecified Start:22-Jan-2015 Instruction Type:Patient Education How to access health informa tion online - Detail Indication:Vitamin D deficiency, unspecified Start:22-Jan-2015 Instruction Type:Patient Education Patient Instructions Indication:Vitamin D deficiency, unspecified Start:22-Jan-2015 Instruction Type:Provider Instructions for Treatment Patient Instructions Indication:Obesity Start:29-Sep-2013 Instruction Type:Provider Instructions for Treatment Patient Instructions Indication:Fatigue Start:18-Jun-2012 Instruction Type:Provider Instructions for Treatment [facility]; [facility] Work Phone: Instructions* Name Dates Details Patient Instructions Indication:Hyperlipidemia Start:04-May-2023 Instruction Type:Provider Instructions for Treatment How to Access Health Informa tion Online using Patient Portal and [employer] Apps Indication:Hyperlipidemia Start:04-May-2023 Instruction Type:Patient Education Patient Instructions Indication:Mild intermittent asthma with acute exacerbation Start:24-Dec-2022 Instruction Type:Provider Instructions for Treatment How to Access Health Informa tion Online using Patient Portal and [employer] Apps Indication:Mild intermittent asthma with acute exacerbation Start:24-Dec-2022 Instruction Type:Patient Education Patient Instructions Indication:Nonsmoker Start:17-Dec-2022 Instruction Type:Provider Instructions for Treatment How to Access Health Informa tion Online using Patient Portal and [employer] Apps Indication:Nonsmoker Start:17-Dec-2022 Instruction Type:Patient Education Patient Instructions Indication:Nonsmoker Start:03-Nov-2022 Instruction Type:Provider Instructions for Treatment How to Access Health Informa tion Online using Patient Portal and [employer] Apps Indication:Nonsmoker Start:03-Nov-2022 Instruction Type:Patient Education Patient Instructions Indication:Preop examination Start:19-Aug-2022 Instruction Type:Provider Instructions for Treatment How to Access Health Informa tion Online using Patient Portal and [employer] Apps Indication:Preop examination Start:19-Aug-2022 Instruction Type:Patient Education Patient Instructions Indication:BMI 37.0-37.9, adult Start:30-Apr-2022 Instruction Type:Provider Instructions for Treatment How to Access Health Informa tion Online using Patient Portal and [employer] Apps Indication:BMI 37.0-37.9, adult Start:30-Apr-2022 Instruction Type:Patient Education Patient Instructions Indication:Nonsmoker Start:15-Jul-2021 Instruction Type:Provider Instructions for Treatment How to Access Health Informa tion Online using Patient Portal and [employer] Apps Indication:Nonsmoker Start:15-Jul-2021 Instruction Type:Patient Education How to access health informa tion online Indication:Nonsmoker Start:20-Aug-2020 Instruction Type:Patient Education How to access health informa tion online - Detail Indication:Nonsmoker Start:20-Aug-2020 Instruction Type:Patient Education Patient Instructions Indication:Nonsmoker Start:20-Aug-2020 Instruction Type:Provider Instructions for Treatment How to access health informa tion online Indication:Nonsmoker Start:16-Apr-2020 Instruction Type:Patient Education How to access health informa tion online - Detail Indication:Nonsmoker Start:16-Apr-2020 Instruction Type:Patient Education Patient Instructions Indication:BMI 39.0-39.9,adult Start:16-Apr-2020 Instruction Type:Provider Instructions for Treatment How to access health informa tion online Indication:Nonsmoker Start:15-Nov-2019 Instruction Type:Patient Education How to access health informa tion online - Detail Indication:Nonsmoker Start:15-Nov-2019 Instruction Type:Patient Education Patient Instructions Indication:Recurrent cold sores Start:15-Nov-2019 Instruction Type:Provider Instructions for Treatment How to access health informa tion online Indication:Nonsmoker Start:01-Aug-2019 Instruction Type:Patient Education How to access health informa tion online - Detail Indication:Nonsmoker Start:01-Aug-2019 Instruction Type:Patient Education Patient Instructions Indication:BMI 39.0-39.9,adult Start:01-Aug-2019 Instruction Type:Provider Instructions for Treatment How to access health informa tion online Indication:Nonsmoker Start:18-Jul-2019 Instruction Type:Patient Education How to access health informa tion online - Detail Indication:Nonsmoker Start:18-Jul-2019 Instruction Type:Patient Education Patient Instructions Indication:Nonsmoker Start:18-Jul-2019 Instruction Type:Provider Instructions for Treatment How to access health informa tion online Indication:BMI 40.0-44.9, adult Start:27-Jun-2019 Instruction Type:Patient Education How to access health informa tion online - Detail Indication:BMI 40.0-44.9, adult Start:27-Jun-2019 Instruction Type:Patient Education Patient Instructions Indication:SOB (shortness of breath) Start:27-Jun-2019 Instruction Type:Provider Instructions for Treatment How to access health informa tion online Indication:Nonsmoker Start:27-Apr-2019 Instruction Type:Patient Education How to access health informa tion online - Detail Indication:Nonsmoker Start:27-Apr-2019 Instruction Type:Patient Education Patient Instructions Indication:Nonsmoker Start:27-Apr-2019 Instruction Type:Provider Instructions for Treatment How to access health informa tion online Indication:Nonsmoker Start:29-Dec-2018 Instruction Type:Patient Education How to access health informa tion online - Detail Indication:Nonsmoker Start:29-Dec-2018 Instruction Type:Patient Education Patient Instructions Indication:Nonsmoker Start:29-Dec-2018 Instruction Type:Provider Instructions for Treatment DISCONTINUED - TSH (THYROID STIMULATING HORMONE) (12973) Indication:Intrinsic asthma Start:09-Aug-2018 Instruction Type:Patient Education DISCONTINUED - METABOLIC MANRIQUE EL, COMPREHENSIVE (64491) Indication:GERD (gastroesophageal reflux disease) Start:09-Aug-2018 Instruction Type:Patient Education DISCONTINUED - CBC, PLATELET S & MANUAL DIFF (10141) Indication:GERD (gastroesophageal reflux disease) Start:09-Aug-2018 Instruction Type:Patient Education How to access health informa tion online Indication:Nonsmoker Start:09-Aug-2018 Instruction Type:Patient Education How to access health informa tion online - Detail Indication:Nonsmoker Start:09-Aug-2018 Instruction Type:Patient Education Patient Instructions Indication:Encounter for screening for lipid disorder Start:09-Aug-2018 Instruction Type:Provider Instructions for Treatment How to access health informa tion online Indication:BMI 37.0-37.9, adult Start:29-Sep-2017 Instruction Type:Patient Education How to access health informa tion online - Detail Indication:BMI 37.0-37.9, adult Start:29-Sep-2017 Instruction Type:Patient Education Patient Instructions Indication:BMI 37.0-37.9, adult Start:29-Sep-2017 Instruction Type:Provider Instructions for Treatment How to access health informa tion online Indication:BMI 39.0-39.9,adult Start:01-Sep-2017 Instruction Type:Patient Education How to access health informa tion online - Detail Indication:BMI 39.0-39.9,adult Start:01-Sep-2017 Instruction Type:Patient Education Patient Instructions Indication:Upper respiratory virus Start:01-Sep-2017 Instruction Type:Provider Instructions for Treatment How to access health informa tion online Indication:Nonsmoker Start:03-Jul-2017 Instruction Type:Patient Education How to access health informa tion online - Detail Indication:Nonsmoker Start:03-Jul-2017 Instruction Type:Patient Education Patient Instructions Indication:Nonsmoker Start:03-Jul-2017 Instruction Type:Provider Instructions for Treatment How to access health informa tion online Indication:Impaired fasting glucose Start:09-Mar-2017 Instruction Type:Patient Education How to access health informa tion online - Detail Indication:Impaired fasting glucose Start:09-Mar-2017 Instruction Type:Patient Education Patient Instructions Indication:Impaired fasting glucose Start:09-Mar-2017 Instruction Type:Provider Instructions for Treatment How to access health informa tion online Indication:Intrinsic asthma Start:19-Nov-2016 Instruction Type:Patient Education How to access health informa tion online - Detail Indication:Intrinsic asthma Start:19-Nov-2016 Instruction Type:Patient Education Patient Instructions Indication:Intrinsic asthma Start:19-Nov-2016 Instruction Type:Provider Instructions for Treatment How to access health informa tion online Indication:Vitamin D deficiency, unspecified Start:21-Jul-2016 Instruction Type:Patient Education How to access health informa tion online - Detail Indication:Vitamin D deficiency, unspecified Start:21-Jul-2016 Instruction Type:Patient Education Patient Instructions Indication:Vitamin D deficiency, unspecified Start:21-Jul-2016 Instruction Type:Provider Instructions for Treatment How to access health informa tion online Indication:Vitamin D deficiency, unspecified Start:01-Feb-2016 Instruction Type:Patient Education How to access health informa tion online - Detail Indication:Vitamin D deficiency, unspecified Start:01-Feb-2016 Instruction Type:Patient Education Patient Instructions Indication:Vitamin D deficiency, unspecified Start:01-Feb-2016 Instruction Type:Provider Instructions for Treatment How to access health informa tion online Indication:Mild intermittent asthma with acute exacerbation Start:04-Dec-2015 Instruction Type:Patient Education How to access health informa tion online - Detail Indication:Mild intermittent asthma with acute exacerbation Start:04-Dec-2015 Instruction Type:Patient Education Patient Instructions Indication:Mild intermittent asthma with acute exacerbation Start:04-Dec-2015 Instruction Type:Provider Instructions for Treatment How to access health informa tion online Indication:Recurrent cold sores Start:16-Oct-2015 Instruction Type:Patient Education How to access health informa tion online - Detail Indication:Recurrent cold sores Start:16-Oct-2015 Instruction Type:Patient Education Patient Instructions Indication:Recurrent cold sores Start:16-Oct-2015 Instruction Type:Provider Instructions for Treatment How to access health informa tion online Indication:Vitamin D deficiency, unspecified Start:16-Jul-2015 Instruction Type:Patient Education How to access health informa tion online - Detail Indication:Vitamin D deficiency, unspecified Start:16-Jul-2015 Instruction Type:Patient Education Patient Instructions Indication:Vitamin D deficiency, unspecified Start:16-Jul-2015 Instruction Type:Provider Instructions for Treatment How to access health informa tion online - Detail Indication:Obesity Start:16-Apr-2015 Instruction Type:Patient Education Patient Instructions Indication:Obesity Start:16-Apr-2015 Instruction Type:Provider Instructions for Treatment How to access health informa tion online Indication:Subcutaneous nodule Start:19-Mar-2015 Instruction Type:Patient Education How to access health informa tion online - Detail Indication:Subcutaneous nodule Start:19-Mar-2015 Instruction Type:Patient Education Patient Instructions Indication:Subcutaneous nodule Start:19-Mar-2015 Instruction Type:Provider Instructions for Treatment How to access health informa tion online Indication:Vitamin D deficiency, unspecified Start:22-Jan-2015 Instruction Type:Patient Education How to access health informa tion online - Detail Indication:Vitamin D deficiency, unspecified Start:22-Jan-2015 Instruction Type:Patient Education Patient Instructions Indication:Vitamin D deficiency, unspecified Start:22-Jan-2015 Instruction Type:Provider Instructions for Treatment Patient Instructions Indication:Obesity Start:29-Sep-2013 Instruction Type:Provider Instructions for Treatment Patient Instructions Indication:Fatigue Start:18-Jun-2012 Instruction Type:Provider Instructions for Treatment [facility]; [facility] Work Phone: Instructions* Name Dates Details Patient Instructions Indication:Hyperlipidemia Start:04-May-2023 Instruction Type:Provider Instructions for Treatment How to Access Health Informa tion Online using Patient Portal and [employer] Apps Indication:Hyperlipidemia Start:04-May-2023 Instruction Type:Patient Education Patient Instructions Indication:Mild intermittent asthma with acute exacerbation Start:24-Dec-2022 Instruction Type:Provider Instructions for Treatment How to Access Health Informa tion Online using Patient Portal and [employer] Apps Indication:Mild intermittent asthma with acute exacerbation Start:24-Dec-2022 Instruction Type:Patient Education Patient Instructions Indication:Nonsmoker Start:17-Dec-2022 Instruction Type:Provider Instructions for Treatment How to Access Health Informa tion Online using Patient Portal and [employer] Apps Indication:Nonsmoker Start:17-Dec-2022 Instruction Type:Patient Education Patient Instructions Indication:Nonsmoker Start:03-Nov-2022 Instruction Type:Provider Instructions for Treatment How to Access Health Informa tion Online using Patient Portal and [employer] Apps Indication:Nonsmoker Start:03-Nov-2022 Instruction Type:Patient Education Patient Instructions Indication:Preop examination Start:19-Aug-2022 Instruction Type:Provider Instructions for Treatment How to Access Health Informa tion Online using Patient Portal and [employer] Apps Indication:Preop examination Start:19-Aug-2022 Instruction Type:Patient Education Patient Instructions Indication:BMI 37.0-37.9, adult Start:30-Apr-2022 Instruction Type:Provider Instructions for Treatment How to Access Health Informa tion Online using Patient Portal and [employer] Apps Indication:BMI 37.0-37.9, adult Start:30-Apr-2022 Instruction Type:Patient Education Patient Instructions Indication:Nonsmoker Start:15-Jul-2021 Instruction Type:Provider Instructions for Treatment How to Access Health Informa tion Online using Patient Portal and [employer] Apps Indication:Nonsmoker Start:15-Jul-2021 Instruction Type:Patient Education How to access health informa tion online Indication:Nonsmoker Start:20-Aug-2020 Instruction Type:Patient Education How to access health informa tion online - Detail Indication:Nonsmoker Start:20-Aug-2020 Instruction Type:Patient Education Patient Instructions Indication:Nonsmoker Start:20-Aug-2020 Instruction Type:Provider Instructions for Treatment How to access health informa tion online Indication:Nonsmoker Start:16-Apr-2020 Instruction Type:Patient Education How to access health informa tion online - Detail Indication:Nonsmoker Start:16-Apr-2020 Instruction Type:Patient Education Patient Instructions Indication:BMI 39.0-39.9,adult Start:16-Apr-2020 Instruction Type:Provider Instructions for Treatment How to access health informa tion online Indication:Nonsmoker Start:15-Nov-2019 Instruction Type:Patient Education How to access health informa tion online - Detail Indication:Nonsmoker Start:15-Nov-2019 Instruction Type:Patient Education Patient Instructions Indication:Recurrent cold sores Start:15-Nov-2019 Instruction Type:Provider Instructions for Treatment How to access health informa tion online Indication:Nonsmoker Start:01-Aug-2019 Instruction Type:Patient Education How to access health informa tion online - Detail Indication:Nonsmoker Start:01-Aug-2019 Instruction Type:Patient Education Patient Instructions Indication:BMI 39.0-39.9,adult Start:01-Aug-2019 Instruction Type:Provider Instructions for Treatment How to access health informa tion online Indication:Nonsmoker Start:18-Jul-2019 Instruction Type:Patient Education How to access health informa tion online - Detail Indication:Nonsmoker Start:18-Jul-2019 Instruction Type:Patient Education Patient Instructions Indication:Nonsmoker Start:18-Jul-2019 Instruction Type:Provider Instructions for Treatment How to access health informa tion online Indication:BMI 40.0-44.9, adult Start:27-Jun-2019 Instruction Type:Patient Education How to access health informa tion online - Detail Indication:BMI 40.0-44.9, adult Start:27-Jun-2019 Instruction Type:Patient Education Patient Instructions Indication:SOB (shortness of breath) Start:27-Jun-2019 Instruction Type:Provider Instructions for Treatment How to access health informa tion online Indication:Nonsmoker Start:27-Apr-2019 Instruction Type:Patient Education How to access health informa tion online - Detail Indication:Nonsmoker Start:27-Apr-2019 Instruction Type:Patient Education Patient Instructions Indication:Nonsmoker Start:27-Apr-2019 Instruction Type:Provider Instructions for Treatment How to access health informa tion online Indication:Nonsmoker Start:29-Dec-2018 Instruction Type:Patient Education How to access health informa tion online - Detail Indication:Nonsmoker Start:29-Dec-2018 Instruction Type:Patient Education Patient Instructions Indication:Nonsmoker Start:29-Dec-2018 Instruction Type:Provider Instructions for Treatment DISCONTINUED - TSH (THYROID STIMULATING HORMONE) (14555) Indication:Intrinsic asthma Start:09-Aug-2018 Instruction Type:Patient Education DISCONTINUED - METABOLIC MANRIQUE EL, COMPREHENSIVE (93662) Indication:GERD (gastroesophageal reflux disease) Start:09-Aug-2018 Instruction Type:Patient Education DISCONTINUED - CBC, PLATELET S & MANUAL DIFF (76445) Indication:GERD (gastroesophageal reflux disease) Start:09-Aug-2018 Instruction Type:Patient Education How to access health informa tion online Indication:Nonsmoker Start:09-Aug-2018 Instruction Type:Patient Education How to access health informa tion online - Detail Indication:Nonsmoker Start:09-Aug-2018 Instruction Type:Patient Education Patient Instructions Indication:Encounter for screening for lipid disorder Start:09-Aug-2018 Instruction Type:Provider Instructions for Treatment How to access health informa tion online Indication:BMI 37.0-37.9, adult Start:29-Sep-2017 Instruction Type:Patient Education How to access health informa tion online - Detail Indication:BMI 37.0-37.9, adult Start:29-Sep-2017 Instruction Type:Patient Education Patient Instructions Indication:BMI 37.0-37.9, adult Start:29-Sep-2017 Instruction Type:Provider Instructions for Treatment How to access health informa tion online Indication:BMI 39.0-39.9,adult Start:01-Sep-2017 Instruction Type:Patient Education How to access health informa tion online - Detail Indication:BMI 39.0-39.9,adult Start:01-Sep-2017 Instruction Type:Patient Education Patient Instructions Indication:Upper respiratory virus Start:01-Sep-2017 Instruction Type:Provider Instructions for Treatment How to access health informa tion online Indication:Nonsmoker Start:03-Jul-2017 Instruction Type:Patient Education How to access health informa tion online - Detail Indication:Nonsmoker Start:03-Jul-2017 Instruction Type:Patient Education Patient Instructions Indication:Nonsmoker Start:03-Jul-2017 Instruction Type:Provider Instructions for Treatment How to access health informa tion online Indication:Impaired fasting glucose Start:09-Mar-2017 Instruction Type:Patient Education How to access health informa tion online - Detail Indication:Impaired fasting glucose Start:09-Mar-2017 Instruction Type:Patient Education Patient Instructions Indication:Impaired fasting glucose Start:09-Mar-2017 Instruction Type:Provider Instructions for Treatment How to access health informa tion online Indication:Intrinsic asthma Start:19-Nov-2016 Instruction Type:Patient Education How to access health informa tion online - Detail Indication:Intrinsic asthma Start:19-Nov-2016 Instruction Type:Patient Education Patient Instructions Indication:Intrinsic asthma Start:19-Nov-2016 Instruction Type:Provider Instructions for Treatment How to access health informa tion online Indication:Vitamin D deficiency, unspecified Start:21-Jul-2016 Instruction Type:Patient Education How to access health informa tion online - Detail Indication:Vitamin D deficiency, unspecified Start:21-Jul-2016 Instruction Type:Patient Education Patient Instructions Indication:Vitamin D deficiency, unspecified Start:21-Jul-2016 Instruction Type:Provider Instructions for Treatment How to access health informa tion online Indication:Vitamin D deficiency, unspecified Start:01-Feb-2016 Instruction Type:Patient Education How to access health informa tion online - Detail Indication:Vitamin D deficiency, unspecified Start:01-Feb-2016 Instruction Type:Patient Education Patient Instructions Indication:Vitamin D deficiency, unspecified Start:01-Feb-2016 Instruction Type:Provider Instructions for Treatment How to access health informa tion online Indication:Mild intermittent asthma with acute exacerbation Start:04-Dec-2015 Instruction Type:Patient Education How to access health informa tion online - Detail Indication:Mild intermittent asthma with acute exacerbation Start:04-Dec-2015 Instruction Type:Patient Education Patient Instructions Indication:Mild intermittent asthma with acute exacerbation Start:04-Dec-2015 Instruction Type:Provider Instructions for Treatment How to access health informa tion online Indication:Recurrent cold sores Start:16-Oct-2015 Instruction Type:Patient Education How to access health informa tion online - Detail Indication:Recurrent cold sores Start:16-Oct-2015 Instruction Type:Patient Education Patient Instructions Indication:Recurrent cold sores Start:16-Oct-2015 Instruction Type:Provider Instructions for Treatment How to access health informa tion online Indication:Vitamin D deficiency, unspecified Start:16-Jul-2015 Instruction Type:Patient Education How to access health informa tion online - Detail Indication:Vitamin D deficiency, unspecified Start:16-Jul-2015 Instruction Type:Patient Education Patient Instructions Indication:Vitamin D deficiency, unspecified Start:16-Jul-2015 Instruction Type:Provider Instructions for Treatment How to access health informa tion online - Detail Indication:Obesity Start:16-Apr-2015 Instruction Type:Patient Education Patient Instructions Indication:Obesity Start:16-Apr-2015 Instruction Type:Provider Instructions for Treatment How to access health informa tion online Indication:Subcutaneous nodule Start:19-Mar-2015 Instruction Type:Patient Education How to access health informa tion online - Detail Indication:Subcutaneous nodule Start:19-Mar-2015 Instruction Type:Patient Education Patient Instructions Indication:Subcutaneous nodule Start:19-Mar-2015 Instruction Type:Provider Instructions for Treatment How to access health informa tion online Indication:Vitamin D deficiency, unspecified Start:22-Jan-2015 Instruction Type:Patient Education How to access health informa tion online - Detail Indication:Vitamin D deficiency, unspecified Start:22-Jan-2015 Instruction Type:Patient Education Patient Instructions Indication:Vitamin D deficiency, unspecified Start:22-Jan-2015 Instruction Type:Provider Instructions for Treatment Patient Instructions Indication:Obesity Start:29-Sep-2013 Instruction Type:Provider Instructions for Treatment Patient Instructions Indication:Fatigue Start:18-Jun-2012 Instruction Type:Provider Instructions for Treatment [facility]; [facility] Work Phone: Instructions* Name Dates Details Patient Instructions Indication:Hyperlipidemia Start:04-May-2023 Instruction Type:Provider Instructions for Treatment How to Access Health Informa tion Online using Patient Portal and [employer] Apps Indication:Hyperlipidemia Start:04-May-2023 Instruction Type:Patient Education Patient Instructions Indication:Mild intermittent asthma with acute exacerbation Start:24-Dec-2022 Instruction Type:Provider Instructions for Treatment How to Access Health Informa tion Online using Patient Portal and [employer] Apps Indication:Mild intermittent asthma with acute exacerbation Start:24-Dec-2022 Instruction Type:Patient Education Patient Instructions Indication:Nonsmoker Start:17-Dec-2022 Instruction Type:Provider Instructions for Treatment How to Access Health Informa tion Online using Patient Portal and [employer] Apps Indication:Nonsmoker Start:17-Dec-2022 Instruction Type:Patient Education Patient Instructions Indication:Nonsmoker Start:03-Nov-2022 Instruction Type:Provider Instructions for Treatment How to Access Health Informa tion Online using Patient Portal and [employer] Apps Indication:Nonsmoker Start:03-Nov-2022 Instruction Type:Patient Education Patient Instructions Indication:Preop examination Start:19-Aug-2022 Instruction Type:Provider Instructions for Treatment How to Access Health Informa tion Online using Patient Portal and [employer] Apps Indication:Preop examination Start:19-Aug-2022 Instruction Type:Patient Education Patient Instructions Indication:BMI 37.0-37.9, adult Start:30-Apr-2022 Instruction Type:Provider Instructions for Treatment How to Access Health Informa tion Online using Patient Portal and [employer] Apps Indication:BMI 37.0-37.9, adult Start:30-Apr-2022 Instruction Type:Patient Education Patient Instructions Indication:Nonsmoker Start:15-Jul-2021 Instruction Type:Provider Instructions for Treatment How to Access Health Informa tion Online using Patient Portal and [employer] Indication:Nonsmoker Start:15-Jul-2021 Instruction Type:Patient Education How to access health informa tion online Indication:Nonsmoker Start:20-Aug-2020 Instruction Type:Patient Education How to access health informa tion online - Detail Indication:Nonsmoker Start:20-Aug-2020 Instruction Type:Patient Education Patient Instructions Indication:Nonsmoker Start:20-Aug-2020 Instruction Type:Provider Instructions for Treatment How to access health informa tion online Indication:Nonsmoker Start:16-Apr-2020 Instruction Type:Patient Education How to access health informa tion online - Detail Indication:Nonsmoker Start:16-Apr-2020 Instruction Type:Patient Education Patient Instructions Indication:BMI 39.0-39.9,adult Start:16-Apr-2020 Instruction Type:Provider Instructions for Treatment How to access health informa tion online Indication:Nonsmoker Start:15-Nov-2019 Instruction Type:Patient Education How to access health informa tion online - Detail Indication:Nonsmoker Start:15-Nov-2019 Instruction Type:Patient Education Patient Instructions Indication:Recurrent cold sores Start:15-Nov-2019 Instruction Type:Provider Instructions for Treatment How to access health informa tion online Indication:Nonsmoker Start:01-Aug-2019 Instruction Type:Patient Education How to access health informa tion online - Detail Indication:Nonsmoker Start:01-Aug-2019 Instruction Type:Patient Education Patient Instructions Indication:BMI 39.0-39.9,adult Start:01-Aug-2019 Instruction Type:Provider Instructions for Treatment How to access health informa tion online Indication:Nonsmoker Start:18-Jul-2019 Instruction Type:Patient Education How to access health informa tion online - Detail Indication:Nonsmoker Start:18-Jul-2019 Instruction Type:Patient Education Patient Instructions Indication:Nonsmoker Start:18-Jul-2019 Instruction Type:Provider Instructions for Treatment How to access health informa tion online Indication:BMI 40.0-44.9, adult Start:27-Jun-2019 Instruction Type:Patient Education How to access health informa tion online - Detail Indication:BMI 40.0-44.9, adult Start:27-Jun-2019 Instruction Type:Patient Education Patient Instructions Indication:SOB (shortness of breath) Start:27-Jun-2019 Instruction Type:Provider Instructions for Treatment How to access health informa tion online Indication:Nonsmoker Start:27-Apr-2019 Instruction Type:Patient Education How to access health informa tion online - Detail Indication:Nonsmoker Start:27-Apr-2019 Instruction Type:Patient Education Patient Instructions Indication:Nonsmoker Start:27-Apr-2019 Instruction Type:Provider Instructions for Treatment How to access health informa tion online Indication:Nonsmoker Start:29-Dec-2018 Instruction Type:Patient Education How to access health informa tion online - Detail Indication:Nonsmoker Start:29-Dec-2018 Instruction Type:Patient Education Patient Instructions Indication:Nonsmoker Start:29-Dec-2018 Instruction Type:Provider Instructions for Treatment DISCONTINUED - TSH (THYROID STIMULATING HORMONE) (60046) Indication:Intrinsic asthma Start:09-Aug-2018 Instruction Type:Patient Education DISCONTINUED - METABOLIC MANRIQUE EL, COMPREHENSIVE (91165) Indication:GERD (gastroesophageal reflux disease) Start:09-Aug-2018 Instruction Type:Patient Education DISCONTINUED - CBC, PLATELET S & MANUAL DIFF (76030) Indication:GERD (gastroesophageal reflux disease) Start:09-Aug-2018 Instruction Type:Patient Education How to access health informa tion online Indication:Nonsmoker Start:09-Aug-2018 Instruction Type:Patient Education How to access health informa tion online - Detail Indication:Nonsmoker Start:09-Aug-2018 Instruction Type:Patient Education Patient Instructions Indication:Encounter for screening for lipid disorder Start:09-Aug-2018 Instruction Type:Provider Instructions for Treatment How to access health informa tion online Indication:BMI 37.0-37.9, adult Start:29-Sep-2017 Instruction Type:Patient Education How to access health informa tion online - Detail Indication:BMI 37.0-37.9, adult Start:29-Sep-2017 Instruction Type:Patient Education Patient Instructions Indication:BMI 37.0-37.9, adult Start:29-Sep-2017 Instruction Type:Provider Instructions for Treatment How to access health informa tion online Indication:BMI 39.0-39.9,adult Start:01-Sep-2017 Instruction Type:Patient Education How to access health informa tion online - Detail Indication:BMI 39.0-39.9,adult Start:01-Sep-2017 Instruction Type:Patient Education Patient Instructions Indication:Upper respiratory virus Start:01-Sep-2017 Instruction Type:Provider Instructions for Treatment How to access health informa tion online Indication:Nonsmoker Start:03-Jul-2017 Instruction Type:Patient Education How to access health informa tion online - Detail Indication:Nonsmoker Start:03-Jul-2017 Instruction Type:Patient Education Patient Instructions Indication:Nonsmoker Start:03-Jul-2017 Instruction Type:Provider Instructions for Treatment How to access health informa tion online Indication:Impaired fasting glucose Start:09-Mar-2017 Instruction Type:Patient Education How to access health informa tion online - Detail Indication:Impaired fasting glucose Start:09-Mar-2017 Instruction Type:Patient Education Patient Instructions Indication:Impaired fasting glucose Start:09-Mar-2017 Instruction Type:Provider Instructions for Treatment How to access health informa tion online Indication:Intrinsic asthma Start:19-Nov-2016 Instruction Type:Patient Education How to access health informa tion online - Detail Indication:Intrinsic asthma Start:19-Nov-2016 Instruction Type:Patient Education Patient Instructions Indication:Intrinsic asthma Start:19-Nov-2016 Instruction Type:Provider Instructions for Treatment How to access health informa tion online Indication:Vitamin D deficiency, unspecified Start:21-Jul-2016 Instruction Type:Patient Education How to access health informa tion online - Detail Indication:Vitamin D deficiency, unspecified Start:21-Jul-2016 Instruction Type:Patient Education Patient Instructions Indication:Vitamin D deficiency, unspecified Start:21-Jul-2016 Instruction Type:Provider Instructions for Treatment How to access health informa tion online Indication:Vitamin D deficiency, unspecified Start:01-Feb-2016 Instruction Type:Patient Education How to access health informa tion online - Detail Indication:Vitamin D deficiency, unspecified Start:01-Feb-2016 Instruction Type:Patient Education Patient Instructions Indication:Vitamin D deficiency, unspecified Start:01-Feb-2016 Instruction Type:Provider Instructions for Treatment How to access health informa tion online Indication:Mild intermittent asthma with acute exacerbation Start:04-Dec-2015 Instruction Type:Patient Education How to access health informa tion online - Detail Indication:Mild intermittent asthma with acute exacerbation Start:04-Dec-2015 Instruction Type:Patient Education Patient Instructions Indication:Mild intermittent asthma with acute exacerbation Start:04-Dec-2015 Instruction Type:Provider Instructions for Treatment How to access health informa tion online Indication:Recurrent cold sores Start:16-Oct-2015 Instruction Type:Patient Education How to access health informa tion online - Detail Indication:Recurrent cold sores Start:16-Oct-2015 Instruction Type:Patient Education Patient Instructions Indication:Recurrent cold sores Start:16-Oct-2015 Instruction Type:Provider Instructions for Treatment How to access health informa tion online Indication:Vitamin D deficiency, unspecified Start:16-Jul-2015 Instruction Type:Patient Education How to access health informa tion online - Detail Indication:Vitamin D deficiency, unspecified Start:16-Jul-2015 Instruction Type:Patient Education Patient Instructions Indication:Vitamin D deficiency, unspecified Start:16-Jul-2015 Instruction Type:Provider Instructions for Treatment How to access health informa tion online - Detail Indication:Obesity Start:16-Apr-2015 Instruction Type:Patient Education Patient Instructions Indication:Obesity Start:16-Apr-2015 Instruction Type:Provider Instructions for Treatment How to access health informa tion online Indication:Subcutaneous nodule Start:19-Mar-2015 Instruction Type:Patient Education How to access health informa tion online - Detail Indication:Subcutaneous nodule Start:19-Mar-2015 Instruction Type:Patient Education Patient Instructions Indication:Subcutaneous nodule Start:19-Mar-2015 Instruction Type:Provider Instructions for Treatment How to access health informa tion online Indication:Vitamin D deficiency, unspecified Start:22-Jan-2015 Instruction Type:Patient Education How to access health informa tion online - Detail Indication:Vitamin D deficiency, unspecified Start:22-Jan-2015 Instruction Type:Patient Education Patient Instructions Indication:Vitamin D deficiency, unspecified Start:22-Jan-2015 Instruction Type:Provider Instructions for Treatment Patient Instructions Indication:Obesity Start:29-Sep-2013 Instruction Type:Provider Instructions for Treatment Patient Instructions Indication:Fatigue Start:18-Jun-2012 Instruction Type:Provider Instructions for Treatment [facility] Work Phone: reason for referral (narrative)* Outpatient Procedure (Routine) - Pending Review Specialty Diagnoses / Procedures Referred By Laura pablo Referred To Contact [facility] Diagnoses Special screening for malignant neoplasms, colon Procedures COLONOSCOPY SCREENING COLONOSCOPY FLX DX W/COLLJ SPEC WHEN PFRMD Stephy Perales MD [address] [place] [address] [facility] [place] [address] Referral ID Status Reason Start Date Expiration Date Visits Requested Visits Authorized [id number] Pending Review Auto-Generat ed Referral 2 07/09/2023 1 1 * Diagnostic Procedure Only (Routine) - Pending Review Specialty Diagnoses / Procedures Referred By Laura pablo Referred To Contact [facility] Diagnoses Encounter for screening mammogram for malignant neoplasm of breast Procedures PERLITA SCREENING W STEFANIA SCREENING DIGITAL BREAST TOMOSYNTHESIS BI SCREENING MAMMOGRAPHY BI 2-VIEW BREAST INC CAD Stephy Perales MD [address] [place] [address] [facility] [address] [place] [address] Referral ID Status Reason Start Date Expiration Date Visits Requested Visits Authorized [id number] Pending Review Auto-Generat ed Referral 2 08/08/2023 1 1 [facility] for referral (narrative)* Outpatient Procedure (Routine) - Authorized Specialty Diagnoses / Procedures Referred By Contac t Referred To [facility] Diagnoses Symptomatic varicose veins of both lower extremities Procedures US VENOUS INCOMPETENCY KAEL VAS LAB DUP-SCAN XTR VEINS COMPLETE BILATERAL STUDY Toshia Huston DO [address] [place] [address] [address] Referral ID Status Reason Start Date Expiration Date Visits Requested Visits Authorized [id number] Authorized Auto-Generat ed Referral 11/10/2023 11/09/2024 1 1 [facility] for referral (narrative)* Outpatient Procedure (Routine) - Closed Specialty Diagnoses / Procedures Referred By Contac t Referred To [facility] Diagnoses Symptomatic varicose veins of both lower extremities Procedures US VENOUS INCOMPETENCY UNL VAS LAB DUP-SCAN XTR VEINS UNILATERAL/LIMITED STUDY Toshia Huston DO [address] [place] [address] [address] Referral ID Status Reason Start Date Expiration Date V isits Requested Visits Authorized [id number] Closed Auto-Generate d Referral 02/03/2024 02/02/2025 1 1 * Outpatient Procedure (Routine) - Closed Specialty Diagnoses / Procedures Referred By Contac t Referred To [facility] Diagnoses Symptomatic varicose veins of both lower extremities Procedures US VENOUS INCOMPETENCY UNL VAS LAB DUP-SCAN XTR VEINS UNILATERAL/LIMITED STUDY Toshia Huston DO [address] [place] [address] [facility] [address] [place] [id number] Referral ID Status Reason Start Date Expiration Date V isits Requested Visits Authorized [id number] Closed Auto-Generate d Referral 02/03/2024 02/02/2025 [facility]No reason for referral information [facility] Work Phone: Reason for visit Narrative* Outpatient Procedure (Routine) - Closed Specialty Diagnoses / Procedures Referred By Laura pablo Referred To Contact [facility] Diagnoses Encounter for IUD removal Procedures REMOVE INTRAUTERINE DEVICE REMOVE INTRAUTERINE DEVICE Stephy Perales MD [address] [place] [address] Phone: tel: fax: [address] [address] Referral ID Status Reason Start Date Expiration Date V isits Requested Visits Authorized [id number] Closed Auto-Generate d Referral 02/27/2025 02/27/2026 1 1 [facility] Instructions Name Dates Details Intrinsic asthma : DISCONTIN UED - TSH (THYROID STIMULATING HORMONE) (64616) Indication:Intrinsic asthma GERD (gastroesophageal reflu x disease) : DISCONTINUED - METABOLIC PANEL, COMPREHENSIVE (05352) Indication:GERD (gastroesophageal reflux disease) GERD (gastroesophageal reflu x disease) : DISCONTINUED - CBC, PLATELETS & MANUAL DIFF (07287) Indication:GERD (gastroesophageal reflux disease) Nonsmoker : How to access he alth information online Indication:Nonsmoker Nonsmoker : How to access he alth information online - Detail Indication:Nonsmoker Encounter for screening for lipid disorder : Patient Instructions Indication:Encounter for screening for lipid disorder BMI 37.0-37.9, adult : How t o access health information online Indication:BMI 37.0-37.9, adult BMI 37.0-37.9, adult : How t o access health information online - Detail Indication:BMI 37.0-37.9, adult BMI 37.0-37.9, adult : Patie nt Instructions Indication:BMI 37.0-37.9, adult BMI 39.0-39.9,adult : How to access health information online Indication:BMI 39.0-39.9,adult BMI 39.0-39.9,adult : How to access health information online - Detail Indication:BMI 39.0-39.9,adult Upper respiratory virus : Pa tient Instructions Indication:Upper respiratory virus Nonsmoker : Patient Instruct ions Indication:Nonsmoker Impaired fasting glucose : H ow to access health information online Indication:Impaired fasting glucose Impaired fasting glucose : H ow to access health information online - Detail Indication:Impaired fasting glucose Impaired fasting glucose : P atient Instructions Indication:Impaired fasting glucose Intrinsic asthma : How to ac cess health information online Indication:Intrinsic asthma Intrinsic asthma : How to ac cess health information online - Detail Indication:Intrinsic asthma Intrinsic asthma : Patient I nstructions Indication:Intrinsic asthma Vitamin D deficiency, unspec ified : How to access health information online Indication:Vitamin D deficiency, unspecified Vitamin D deficiency, unspec ified : How to access health information online - Detail Indication:Vitamin D deficiency, unspecified Vitamin D deficiency, unspec ified : Patient Instructions Indication:Vitamin D deficiency, unspecified Unspecified asthma with (acu te) exacerbation : How to access health information online Indication:Unspecified asthma with (acute) exacerbation Unspecified asthma with (acu te) exacerbation : How to access health information online - Detail Indication:Unspecified asthma with (acute) exacerbation Unspecified asthma with (acu te) exacerbation : Patient Instructions Indication:Unspecified asthma with (acute) exacerbation Recurrent cold sores : How t o access health information online Indication:Recurrent cold sores Recurrent cold sores : How t o access health information online - Detail Indication:Recurrent cold sores Recurrent cold sores : Patie nt Instructions Indication:Recurrent cold sores Obesity : How to access heal th information online - Detail Indication:Obesity Obesity : Patient Instructio ns Indication:Obesity Subcutaneous nodule : How to access health information online Indication:Subcutaneous nodule Subcutaneous nodule : How to access health information online - Detail Indication:Subcutaneous nodule Subcutaneous nodule : Patien t Instructions Indication:Subcutaneous nodule Fatigue : Patient Instructio ns Indication:Fatigue Name Dates Details Nonsmoker : How to access he alth information online Indication:Nonsmoker Nonsmoker : How to access he alth information online - Detail Indication:Nonsmoker Nonsmoker : Patient Instruct ions Indication:Nonsmoker Intrinsic asthma : DISCONTIN UED - TSH (THYROID STIMULATING HORMONE) (91212) Indication:Intrinsic asthma GERD (gastroesophageal reflu x disease) : DISCONTINUED - METABOLIC PANEL, COMPREHENSIVE (95268) Indication:GERD (gastroesophageal reflux disease) GERD (gastroesophageal reflu x disease) : DISCONTINUED - CBC, PLATELETS & MANUAL DIFF (50780) Indication:GERD (gastroesophageal reflux disease) Encounter for screening for lipid disorder : Patient Instructions Indication:Encounter for screening for lipid disorder BMI 37.0-37.9, adult : How t o access health information online Indication:BMI 37.0-37.9, adult BMI 37.0-37.9, adult : How t o access health information online - Detail Indication:BMI 37.0-37.9, adult BMI 37.0-37.9, adult : Patie nt Instructions Indication:BMI 37.0-37.9, adult BMI 39.0-39.9,adult : How to access health information online Indication:BMI 39.0-39.9,adult BMI 39.0-39.9,adult : How to access health information online - Detail Indication:BMI 39.0-39.9,adult Upper respiratory virus : Pa tient Instructions Indication:Upper respiratory virus Impaired fasting glucose : H ow to access health information online Indication:Impaired fasting glucose Impaired fasting glucose : H ow to access health information online - Detail Indication:Impaired fasting glucose Impaired fasting glucose : P atient Instructions Indication:Impaired fasting glucose Intrinsic asthma : How to ac cess health information online Indication:Intrinsic asthma Intrinsic asthma : How to ac cess health information online - Detail Indication:Intrinsic asthma Intrinsic asthma : Patient I nstructions Indication:Intrinsic asthma Vitamin D deficiency, unspec ified : How to access health information online Indication:Vitamin D deficiency, unspecified Vitamin D deficiency, unspec ified : How to access health information online - Detail Indication:Vitamin D deficiency, unspecified Vitamin D deficiency, unspec ified : Patient Instructions Indication:Vitamin D deficiency, unspecified Unspecified asthma with (acu te) exacerbation : How to access health information online Indication:Unspecified asthma with (acute) exacerbation Unspecified asthma with (acu te) exacerbation : How to access health information online - Detail Indication:Unspecified asthma with (acute) exacerbation Unspecified asthma with (acu te) exacerbation : Patient Instructions Indication:Unspecified asthma with (acute) exacerbation Recurrent cold sores : How t o access health information online Indication:Recurrent cold sores Recurrent cold sores : How t o access health information online - Detail Indication:Recurrent cold sores Recurrent cold sores : Patie nt Instructions Indication:Recurrent cold sores Obesity : How to access heal th information online - Detail Indication:Obesity Obesity : Patient Instructio ns Indication:Obesity Subcutaneous nodule : How to access health information online Indication:Subcutaneous nodule Subcutaneous nodule : How to access health information online - Detail Indication:Subcutaneous nodule Subcutaneous nodule : Patien t Instructions Indication:Subcutaneous nodule Fatigue : Patient Instructio ns Indication:Fatigue Name Dates Details How to access health informa tion online Indication:Nonsmoker Start:27-Apr-2019 Instruction Type:Patient Education How to access health informa tion online - Detail Indication:Nonsmoker Start:27-Apr-2019 Instruction Type:Patient Education Patient Instructions Indication:Nonsmoker Start:27-Apr-2019 Instruction Type:Provider Instructions for Treatment How to access health informa tion online Indication:Nonsmoker Start:29-Dec-2018 Instruction Type:Patient Education How to access health informa tion online - Detail Indication:Nonsmoker Start:29-Dec-2018 Instruction Type:Patient Education Patient Instructions Indication:Nonsmoker Start:29-Dec-2018 Instruction Type:Provider Instructions for Treatment DISCONTINUED - TSH (THYROID STIMULATING HORMONE) (56516) Indication:Intrinsic asthma Start:09-Aug-2018 Instruction Type:Patient Education DISCONTINUED - METABOLIC MANRIQUE EL, COMPREHENSIVE (95848) Indication:GERD (gastroesophageal reflux disease) Start:09-Aug-2018 Instruction Type:Patient Education DISCONTINUED - CBC, PLATELET S & MANUAL DIFF (07073) Indication:GERD (gastroesophageal reflux disease) Start:09-Aug-2018 Instruction Type:Patient Education How to access health informa tion online Indication:Nonsmoker Start:09-Aug-2018 Instruction Type:Patient Education How to access health informa tion online - Detail Indication:Nonsmoker Start:09-Aug-2018 Instruction Type:Patient Education Patient Instructions Indication:Encounter for screening for lipid disorder Start:09-Aug-2018 Instruction Type:Provider Instructions for Treatment How to access health informa tion online Indication:BMI 37.0-37.9, adult Start:29-Sep-2017 Instruction Type:Patient Education How to access health informa tion online - Detail Indication:BMI 37.0-37.9, adult Start:29-Sep-2017 Instruction Type:Patient Education Patient Instructions Indication:BMI 37.0-37.9, adult Start:29-Sep-2017 Instruction Type:Provider Instructions for Treatment How to access health informa tion online Indication:BMI 39.0-39.9,adult Start:01-Sep-2017 Instruction Type:Patient Education How to access health informa tion online - Detail Indication:BMI 39.0-39.9,adult Start:01-Sep-2017 Instruction Type:Patient Education Patient Instructions Indication:Upper respiratory virus Start:01-Sep-2017 Instruction Type:Provider Instructions for Treatment How to access health informa tion online Indication:Nonsmoker Start:03-Jul-2017 Instruction Type:Patient Education How to access health informa tion online - Detail Indication:Nonsmoker Start:03-Jul-2017 Instruction Type:Patient Education Patient Instructions Indication:Nonsmoker Start:03-Jul-2017 Instruction Type:Provider Instructions for Treatment How to access health informa tion online Indication:Impaired fasting glucose Start:09-Mar-2017 Instruction Type:Patient Education How to access health informa tion online - Detail Indication:Impaired fasting glucose Start:09-Mar-2017 Instruction Type:Patient Education Patient Instructions Indication:Impaired fasting glucose Start:09-Mar-2017 Instruction Type:Provider Instructions for Treatment How to access health informa tion online Indication:Intrinsic asthma Start:19-Nov-2016 Instruction Type:Patient Education How to access health informa tion online - Detail Indication:Intrinsic asthma Start:19-Nov-2016 Instruction Type:Patient Education Patient Instructions Indication:Intrinsic asthma Start:19-Nov-2016 Instruction Type:Provider Instructions for Treatment How to access health informa tion online Indication:Vitamin D deficiency, unspecified Start:21-Jul-2016 Instruction Type:Patient Education How to access health informa tion online - Detail Indication:Vitamin D deficiency, unspecified Start:21-Jul-2016 Instruction Type:Patient Education Patient Instructions Indication:Vitamin D deficiency, unspecified Start:21-Jul-2016 Instruction Type:Provider Instructions for Treatment How to access health informa tion online Indication:Vitamin D deficiency, unspecified Start:01-Feb-2016 Instruction Type:Patient Education How to access health informa tion online - Detail Indication:Vitamin D deficiency, unspecified Start:01-Feb-2016 Instruction Type:Patient Education Patient Instructions Indication:Vitamin D deficiency, unspecified Start:01-Feb-2016 Instruction Type:Provider Instructions for Treatment How to access health informa tion online Indication:Unspecified asthma with (acute) exacerbation Start:04-Dec-2015 Instruction Type:Patient Education How to access health informa tion online - Detail Indication:Unspecified asthma with (acute) exacerbation Start:04-Dec-2015 Instruction Type:Patient Education Patient Instructions Indication:Unspecified asthma with (acute) exacerbation Start:04-Dec-2015 Instruction Type:Provider Instructions for Treatment How to access health informa tion online Indication:Recurrent cold sores Start:16-Oct-2015 Instruction Type:Patient Education How to access health informa tion online - Detail Indication:Recurrent cold sores Start:16-Oct-2015 Instruction Type:Patient Education Patient Instructions Indication:Recurrent cold sores Start:16-Oct-2015 Instruction Type:Provider Instructions for Treatment How to access health informa tion online Indication:Vitamin D deficiency, unspecified Start:16-Jul-2015 Instruction Type:Patient Education How to access health informa tion online - Detail Indication:Vitamin D deficiency, unspecified Start:16-Jul-2015 Instruction Type:Patient Education Patient Instructions Indication:Vitamin D deficiency, unspecified Start:16-Jul-2015 Instruction Type:Provider Instructions for Treatment How to access health informa tion online - Detail Indication:Obesity Start:16-Apr-2015 Instruction Type:Patient Education Patient Instructions Indication:Obesity Start:16-Apr-2015 Instruction Type:Provider Instructions for Treatment How to access health informa tion online Indication:Subcutaneous nodule Start:19-Mar-2015 Instruction Type:Patient Education How to access health informa tion online - Detail Indication:Subcutaneous nodule Start:19-Mar-2015 Instruction Type:Patient Education Patient Instructions Indication:Subcutaneous nodule Start:19-Mar-2015 Instruction Type:Provider Instructions for Treatment How to access health informa tion online Indication:Vitamin D deficiency, unspecified Start:22-Jan-2015 Instruction Type:Patient Education How to access health informa tion online - Detail Indication:Vitamin D deficiency, unspecified Start:22-Jan-2015 Instruction Type:Patient Education Patient Instructions Indication:Vitamin D deficiency, unspecified Start:22-Jan-2015 Instruction Type:Provider Instructions for Treatment Patient Instructions Indication:Obesity Start:29-Sep-2013 Instruction Type:Provider Instructions for Treatment Patient Instructions Indication:Fatigue Start:18-Jun-2012 Instruction Type:Provider Instructions for Treatment Name Dates Details How to access health informa tion online Indication:Nonsmoker Start:27-Apr-2019 Instruction Type:Patient Education How to access health informa tion online - Detail Indication:Nonsmoker Start:27-Apr-2019 Instruction Type:Patient Education Patient Instructions Indication:Nonsmoker Start:27-Apr-2019 Instruction Type:Provider Instructions for Treatment How to access health informa tion online Indication:Nonsmoker Start:29-Dec-2018 Instruction Type:Patient Education How to access health informa tion online - Detail Indication:Nonsmoker Start:29-Dec-2018 Instruction Type:Patient Education Patient Instructions Indication:Nonsmoker Start:29-Dec-2018 Instruction Type:Provider Instructions for Treatment DISCONTINUED - TSH (THYROID STIMULATING HORMONE) (72945) Indication:Intrinsic asthma Start:09-Aug-2018 Instruction Type:Patient Education DISCONTINUED - METABOLIC MANRIQUE EL, COMPREHENSIVE (13657) Indication:GERD (gastroesophageal reflux disease) Start:09-Aug-2018 Instruction Type:Patient Education DISCONTINUED - CBC, PLATELET S & MANUAL DIFF (47494) Indication:GERD (gastroesophageal reflux disease) Start:09-Aug-2018 Instruction Type:Patient Education How to access health informa tion online Indication:Nonsmoker Start:09-Aug-2018 Instruction Type:Patient Education How to access health informa tion online - Detail Indication:Nonsmoker Start:09-Aug-2018 Instruction Type:Patient Education Patient Instructions Indication:Encounter for screening for lipid disorder Start:09-Aug-2018 Instruction Type:Provider Instructions for Treatment How to access health informa tion online Indication:BMI 37.0-37.9, adult Start:29-Sep-2017 Instruction Type:Patient Education How to access health informa tion online - Detail Indication:BMI 37.0-37.9, adult Start:29-Sep-2017 Instruction Type:Patient Education Patient Instructions Indication:BMI 37.0-37.9, adult Start:29-Sep-2017 Instruction Type:Provider Instructions for Treatment How to access health informa tion online Indication:BMI 39.0-39.9,adult Start:01-Sep-2017 Instruction Type:Patient Education How to access health informa tion online - Detail Indication:BMI 39.0-39.9,adult Start:01-Sep-2017 Instruction Type:Patient Education Patient Instructions Indication:Upper respiratory virus Start:01-Sep-2017 Instruction Type:Provider Instructions for Treatment How to access health informa tion online Indication:Nonsmoker Start:03-Jul-2017 Instruction Type:Patient Education How to access health informa tion online - Detail Indication:Nonsmoker Start:03-Jul-2017 Instruction Type:Patient Education Patient Instructions Indication:Nonsmoker Start:03-Jul-2017 Instruction Type:Provider Instructions for Treatment How to access health informa tion online Indication:Impaired fasting glucose Start:09-Mar-2017 Instruction Type:Patient Education How to access health informa tion online - Detail Indication:Impaired fasting glucose Start:09-Mar-2017 Instruction Type:Patient Education Patient Instructions Indication:Impaired fasting glucose Start:09-Mar-2017 Instruction Type:Provider Instructions for Treatment How to access health informa tion online Indication:Intrinsic asthma Start:19-Nov-2016 Instruction Type:Patient Education How to access health informa tion online - Detail Indication:Intrinsic asthma Start:19-Nov-2016 Instruction Type:Patient Education Patient Instructions Indication:Intrinsic asthma Start:19-Nov-2016 Instruction Type:Provider Instructions for Treatment How to access health informa tion online Indication:Vitamin D deficiency, unspecified Start:21-Jul-2016 Instruction Type:Patient Education How to access health informa tion online - Detail Indication:Vitamin D deficiency, unspecified Start:21-Jul-2016 Instruction Type:Patient Education Patient Instructions Indication:Vitamin D deficiency, unspecified Start:21-Jul-2016 Instruction Type:Provider Instructions for Treatment How to access health informa tion online Indication:Vitamin D deficiency, unspecified Start:01-Feb-2016 Instruction Type:Patient Education How to access health informa tion online - Detail Indication:Vitamin D deficiency, unspecified Start:01-Feb-2016 Instruction Type:Patient Education Patient Instructions Indication:Vitamin D deficiency, unspecified Start:01-Feb-2016 Instruction Type:Provider Instructions for Treatment How to access health informa tion online Indication:Unspecified asthma with (acute) exacerbation Start:04-Dec-2015 Instruction Type:Patient Education How to access health informa tion online - Detail Indication:Unspecified asthma with (acute) exacerbation Start:04-Dec-2015 Instruction Type:Patient Education Patient Instructions Indication:Unspecified asthma with (acute) exacerbation Start:04-Dec-2015 Instruction Type:Provider Instructions for Treatment How to access health informa tion online Indication:Recurrent cold sores Start:16-Oct-2015 Instruction Type:Patient Education How to access health informa tion online - Detail Indication:Recurrent cold sores Start:16-Oct-2015 Instruction Type:Patient Education Patient Instructions Indication:Recurrent cold sores Start:16-Oct-2015 Instruction Type:Provider Instructions for Treatment How to access health informa tion online Indication:Vitamin D deficiency, unspecified Start:16-Jul-2015 Instruction Type:Patient Education How to access health informa tion online - Detail Indication:Vitamin D deficiency, unspecified Start:16-Jul-2015 Instruction Type:Patient Education Patient Instructions Indication:Vitamin D deficiency, unspecified Start:16-Jul-2015 Instruction Type:Provider Instructions for Treatment How to access health informa tion online - Detail Indication:Obesity Start:16-Apr-2015 Instruction Type:Patient Education Patient Instructions Indication:Obesity Start:16-Apr-2015 Instruction Type:Provider Instructions for Treatment How to access health informa tion online Indication:Subcutaneous nodule Start:19-Mar-2015 Instruction Type:Patient Education How to access health informa tion online - Detail Indication:Subcutaneous nodule Start:19-Mar-2015 Instruction Type:Patient Education Patient Instructions Indication:Subcutaneous nodule Start:19-Mar-2015 Instruction Type:Provider Instructions for Treatment How to access health informa tion online Indication:Vitamin D deficiency, unspecified Start:22-Jan-2015 Instruction Type:Patient Education How to access health informa tion online - Detail Indication:Vitamin D deficiency, unspecified Start:22-Jan-2015 Instruction Type:Patient Education Patient Instructions Indication:Vitamin D deficiency, unspecified Start:22-Jan-2015 Instruction Type:Provider Instructions for Treatment Patient Instructions Indication:Obesity Start:29-Sep-2013 Instruction Type:Provider Instructions for Treatment Patient Instructions Indication:Fatigue Start:18-Jun-2012 Instruction Type:Provider Instructions for Treatment Name Dates Details How to access health informa tion online Indication:BMI 40.0-44.9, adult Start:27-Jun-2019 Instruction Type:Patient Education How to access health informa tion online - Detail Indication:BMI 40.0-44.9, adult Start:27-Jun-2019 Instruction Type:Patient Education Patient Instructions Indication:SOB (shortness of breath) Start:27-Jun-2019 Instruction Type:Provider Instructions for Treatment How to access health informa tion online Indication:Nonsmoker Start:27-Apr-2019 Instruction Type:Patient Education How to access health informa tion online - Detail Indication:Nonsmoker Start:27-Apr-2019 Instruction Type:Patient Education Patient Instructions Indication:Nonsmoker Start:27-Apr-2019 Instruction Type:Provider Instructions for Treatment How to access health informa tion online Indication:Nonsmoker Start:29-Dec-2018 Instruction Type:Patient Education How to access health informa tion online - Detail Indication:Nonsmoker Start:29-Dec-2018 Instruction Type:Patient Education Patient Instructions Indication:Nonsmoker Start:29-Dec-2018 Instruction Type:Provider Instructions for Treatment DISCONTINUED - TSH (THYROID STIMULATING HORMONE) (15580) Indication:Intrinsic asthma Start:09-Aug-2018 Instruction Type:Patient Education DISCONTINUED - METABOLIC MANRIQUE EL, COMPREHENSIVE (31385) Indication:GERD (gastroesophageal reflux disease) Start:09-Aug-2018 Instruction Type:Patient Education DISCONTINUED - CBC, PLATELET S & MANUAL DIFF (28722) Indication:GERD (gastroesophageal reflux disease) Start:09-Aug-2018 Instruction Type:Patient Education How to access health informa tion online Indication:Nonsmoker Start:09-Aug-2018 Instruction Type:Patient Education How to access health informa tion online - Detail Indication:Nonsmoker Start:09-Aug-2018 Instruction Type:Patient Education Patient Instructions Indication:Encounter for screening for lipid disorder Start:09-Aug-2018 Instruction Type:Provider Instructions for Treatment How to access health informa tion online Indication:BMI 37.0-37.9, adult Start:29-Sep-2017 Instruction Type:Patient Education How to access health informa tion online - Detail Indication:BMI 37.0-37.9, adult Start:29-Sep-2017 Instruction Type:Patient Education Patient Instructions Indication:BMI 37.0-37.9, adult Start:29-Sep-2017 Instruction Type:Provider Instructions for Treatment How to access health informa tion online Indication:BMI 39.0-39.9,adult Start:01-Sep-2017 Instruction Type:Patient Education How to access health informa tion online - Detail Indication:BMI 39.0-39.9,adult Start:01-Sep-2017 Instruction Type:Patient Education Patient Instructions Indication:Upper respiratory virus Start:01-Sep-2017 Instruction Type:Provider Instructions for Treatment How to access health informa tion online Indication:Nonsmoker Start:03-Jul-2017 Instruction Type:Patient Education How to access health informa tion online - Detail Indication:Nonsmoker Start:03-Jul-2017 Instruction Type:Patient Education Patient Instructions Indication:Nonsmoker Start:03-Jul-2017 Instruction Type:Provider Instructions for Treatment How to access health informa tion online Indication:Impaired fasting glucose Start:09-Mar-2017 Instruction Type:Patient Education How to access health informa tion online - Detail Indication:Impaired fasting glucose Start:09-Mar-2017 Instruction Type:Patient Education Patient Instructions Indication:Impaired fasting glucose Start:09-Mar-2017 Instruction Type:Provider Instructions for Treatment How to access health informa tion online Indication:Intrinsic asthma Start:19-Nov-2016 Instruction Type:Patient Education How to access health informa tion online - Detail Indication:Intrinsic asthma Start:19-Nov-2016 Instruction Type:Patient Education Patient Instructions Indication:Intrinsic asthma Start:19-Nov-2016 Instruction Type:Provider Instructions for Treatment How to access health informa tion online Indication:Vitamin D deficiency, unspecified Start:21-Jul-2016 Instruction Type:Patient Education How to access health informa tion online - Detail Indication:Vitamin D deficiency, unspecified Start:21-Jul-2016 Instruction Type:Patient Education Patient Instructions Indication:Vitamin D deficiency, unspecified Start:21-Jul-2016 Instruction Type:Provider Instructions for Treatment How to access health informa tion online Indication:Vitamin D deficiency, unspecified Start:01-Feb-2016 Instruction Type:Patient Education How to access health informa tion online - Detail Indication:Vitamin D deficiency, unspecified Start:01-Feb-2016 Instruction Type:Patient Education Patient Instructions Indication:Vitamin D deficiency, unspecified Start:01-Feb-2016 Instruction Type:Provider Instructions for Treatment How to access health informa tion online Indication:Unspecified asthma with (acute) exacerbation Start:04-Dec-2015 Instruction Type:Patient Education How to access health informa tion online - Detail Indication:Unspecified asthma with (acute) exacerbation Start:04-Dec-2015 Instruction Type:Patient Education Patient Instructions Indication:Unspecified asthma with (acute) exacerbation Start:04-Dec-2015 Instruction Type:Provider Instructions for Treatment How to access health informa tion online Indication:Recurrent cold sores Start:16-Oct-2015 Instruction Type:Patient Education How to access health informa tion online - Detail Indication:Recurrent cold sores Start:16-Oct-2015 Instruction Type:Patient Education Patient Instructions Indication:Recurrent cold sores Start:16-Oct-2015 Instruction Type:Provider Instructions for Treatment How to access health informa tion online Indication:Vitamin D deficiency, unspecified Start:16-Jul-2015 Instruction Type:Patient Education How to access health informa tion online - Detail Indication:Vitamin D deficiency, unspecified Start:16-Jul-2015 Instruction Type:Patient Education Patient Instructions Indication:Vitamin D deficiency, unspecified Start:16-Jul-2015 Instruction Type:Provider Instructions for Treatment How to access health informa tion online - Detail Indication:Obesity Start:16-Apr-2015 Instruction Type:Patient Education Patient Instructions Indication:Obesity Start:16-Apr-2015 Instruction Type:Provider Instructions for Treatment How to access health informa tion online Indication:Subcutaneous nodule Start:19-Mar-2015 Instruction Type:Patient Education How to access health informa tion online - Detail Indication:Subcutaneous nodule Start:19-Mar-2015 Instruction Type:Patient Education Patient Instructions Indication:Subcutaneous nodule Start:19-Mar-2015 Instruction Type:Provider Instructions for Treatment How to access health informa tion online Indication:Vitamin D deficiency, unspecified Start:22-Jan-2015 Instruction Type:Patient Education How to access health informa tion online - Detail Indication:Vitamin D deficiency, unspecified Start:22-Jan-2015 Instruction Type:Patient Education Patient Instructions Indication:Vitamin D deficiency, unspecified Start:22-Jan-2015 Instruction Type:Provider Instructions for Treatment Patient Instructions Indication:Obesity Start:29-Sep-2013 Instruction Type:Provider Instructions for Treatment Patient Instructions Indication:Fatigue Start:18-Jun-2012 Instruction Type:Provider Instructions for Treatment Name Dates Details How to access health informa tion online Indication:Nonsmoker Start:18-Jul-2019 Instruction Type:Patient Education How to access health informa tion online - Detail Indication:Nonsmoker Start:18-Jul-2019 Instruction Type:Patient Education Patient Instructions Indication:Nonsmoker Start:18-Jul-2019 Instruction Type:Provider Instructions for Treatment How to access health informa tion online Indication:BMI 40.0-44.9, adult Start:27-Jun-2019 Instruction Type:Patient Education How to access health informa tion online - Detail Indication:BMI 40.0-44.9, adult Start:27-Jun-2019 Instruction Type:Patient Education Patient Instructions Indication:SOB (shortness of breath) Start:27-Jun-2019 Instruction Type:Provider Instructions for Treatment How to access health informa tion online Indication:Nonsmoker Start:27-Apr-2019 Instruction Type:Patient Education How to access health informa tion online - Detail Indication:Nonsmoker Start:27-Apr-2019 Instruction Type:Patient Education Patient Instructions Indication:Nonsmoker Start:27-Apr-2019 Instruction Type:Provider Instructions for Treatment How to access health informa tion online Indication:Nonsmoker Start:29-Dec-2018 Instruction Type:Patient Education How to access health informa tion online - Detail Indication:Nonsmoker Start:29-Dec-2018 Instruction Type:Patient Education Patient Instructions Indication:Nonsmoker Start:29-Dec-2018 Instruction Type:Provider Instructions for Treatment DISCONTINUED - TSH (THYROID STIMULATING HORMONE) (59991) Indication:Intrinsic asthma Start:09-Aug-2018 Instruction Type:Patient Education DISCONTINUED - METABOLIC MNARIQUE EL, COMPREHENSIVE (94700) Indication:GERD (gastroesophageal reflux disease) Start:09-Aug-2018 Instruction Type:Patient Education DISCONTINUED - CBC, PLATELET S & MANUAL DIFF (73355) Indication:GERD (gastroesophageal reflux disease) Start:09-Aug-2018 Instruction Type:Patient Education How to access health informa tion online Indication:Nonsmoker Start:09-Aug-2018 Instruction Type:Patient Education How to access health informa tion online - Detail Indication:Nonsmoker Start:09-Aug-2018 Instruction Type:Patient Education Patient Instructions Indication:Encounter for screening for lipid disorder Start:09-Aug-2018 Instruction Type:Provider Instructions for Treatment How to access health informa tion online Indication:BMI 37.0-37.9, adult Start:29-Sep-2017 Instruction Type:Patient Education How to access health informa tion online - Detail Indication:BMI 37.0-37.9, adult Start:29-Sep-2017 Instruction Type:Patient Education Patient Instructions Indication:BMI 37.0-37.9, adult Start:29-Sep-2017 Instruction Type:Provider Instructions for Treatment How to access health informa tion online Indication:BMI 39.0-39.9,adult Start:01-Sep-2017 Instruction Type:Patient Education How to access health informa tion online - Detail Indication:BMI 39.0-39.9,adult Start:01-Sep-2017 Instruction Type:Patient Education Patient Instructions Indication:Upper respiratory virus Start:01-Sep-2017 Instruction Type:Provider Instructions for Treatment How to access health informa tion online Indication:Nonsmoker Start:03-Jul-2017 Instruction Type:Patient Education How to access health informa tion online - Detail Indication:Nonsmoker Start:03-Jul-2017 Instruction Type:Patient Education Patient Instructions Indication:Nonsmoker Start:03-Jul-2017 Instruction Type:Provider Instructions for Treatment How to access health informa tion online Indication:Impaired fasting glucose Start:09-Mar-2017 Instruction Type:Patient Education How to access health informa tion online - Detail Indication:Impaired fasting glucose Start:09-Mar-2017 Instruction Type:Patient Education Patient Instructions Indication:Impaired fasting glucose Start:09-Mar-2017 Instruction Type:Provider Instructions for Treatment How to access health informa tion online Indication:Intrinsic asthma Start:19-Nov-2016 Instruction Type:Patient Education How to access health informa tion online - Detail Indication:Intrinsic asthma Start:19-Nov-2016 Instruction Type:Patient Education Patient Instructions Indication:Intrinsic asthma Start:19-Nov-2016 Instruction Type:Provider Instructions for Treatment How to access health informa tion online Indication:Vitamin D deficiency, unspecified Start:21-Jul-2016 Instruction Type:Patient Education How to access health informa tion online - Detail Indication:Vitamin D deficiency, unspecified Start:21-Jul-2016 Instruction Type:Patient Education Patient Instructions Indication:Vitamin D deficiency, unspecified Start:21-Jul-2016 Instruction Type:Provider Instructions for Treatment How to access health informa tion online Indication:Vitamin D deficiency, unspecified Start:01-Feb-2016 Instruction Type:Patient Education How to access health informa tion online - Detail Indication:Vitamin D deficiency, unspecified Start:01-Feb-2016 Instruction Type:Patient Education Patient Instructions Indication:Vitamin D deficiency, unspecified Start:01-Feb-2016 Instruction Type:Provider Instructions for Treatment How to access health informa tion online Indication:Unspecified asthma with (acute) exacerbation Start:04-Dec-2015 Instruction Type:Patient Education How to access health informa tion online - Detail Indication:Unspecified asthma with (acute) exacerbation Start:04-Dec-2015 Instruction Type:Patient Education Patient Instructions Indication:Unspecified asthma with (acute) exacerbation Start:04-Dec-2015 Instruction Type:Provider Instructions for Treatment How to access health informa tion online Indication:Recurrent cold sores Start:16-Oct-2015 Instruction Type:Patient Education How to access health informa tion online - Detail Indication:Recurrent cold sores Start:16-Oct-2015 Instruction Type:Patient Education Patient Instructions Indication:Recurrent cold sores Start:16-Oct-2015 Instruction Type:Provider Instructions for Treatment How to access health informa tion online Indication:Vitamin D deficiency, unspecified Start:16-Jul-2015 Instruction Type:Patient Education How to access health informa tion online - Detail Indication:Vitamin D deficiency, unspecified Start:16-Jul-2015 Instruction Type:Patient Education Patient Instructions Indication:Vitamin D deficiency, unspecified Start:16-Jul-2015 Instruction Type:Provider Instructions for Treatment How to access health informa tion online - Detail Indication:Obesity Start:16-Apr-2015 Instruction Type:Patient Education Patient Instructions Indication:Obesity Start:16-Apr-2015 Instruction Type:Provider Instructions for Treatment How to access health informa tion online Indication:Subcutaneous nodule Start:19-Mar-2015 Instruction Type:Patient Education How to access health informa tion online - Detail Indication:Subcutaneous nodule Start:19-Mar-2015 Instruction Type:Patient Education Patient Instructions Indication:Subcutaneous nodule Start:19-Mar-2015 Instruction Type:Provider Instructions for Treatment How to access health informa tion online Indication:Vitamin D deficiency, unspecified Start:22-Jan-2015 Instruction Type:Patient Education How to access health informa tion online - Detail Indication:Vitamin D deficiency, unspecified Start:22-Jan-2015 Instruction Type:Patient Education Patient Instructions Indication:Vitamin D deficiency, unspecified Start:22-Jan-2015 Instruction Type:Provider Instructions for Treatment Patient Instructions Indication:Obesity Start:29-Sep-2013 Instruction Type:Provider Instructions for Treatment Patient Instructions Indication:Fatigue Start:18-Jun-2012 Instruction Type:Provider Instructions for Treatment Name Dates Details How to access health informa tion online Indication:Nonsmoker Start:01-Aug-2019 Instruction Type:Patient Education How to access health informa tion online - Detail Indication:Nonsmoker Start:01-Aug-2019 Instruction Type:Patient Education Patient Instructions Indication:BMI 39.0-39.9,adult Start:01-Aug-2019 Instruction Type:Provider Instructions for Treatment How to access health informa tion online Indication:Nonsmoker Start:18-Jul-2019 Instruction Type:Patient Education How to access health informa tion online - Detail Indication:Nonsmoker Start:18-Jul-2019 Instruction Type:Patient Education Patient Instructions Indication:Nonsmoker Start:18-Jul-2019 Instruction Type:Provider Instructions for Treatment How to access health informa tion online Indication:BMI 40.0-44.9, adult Start:27-Jun-2019 Instruction Type:Patient Education How to access health informa tion online - Detail Indication:BMI 40.0-44.9, adult Start:27-Jun-2019 Instruction Type:Patient Education Patient Instructions Indication:SOB (shortness of breath) Start:27-Jun-2019 Instruction Type:Provider Instructions for Treatment How to access health informa tion online Indication:Nonsmoker Start:27-Apr-2019 Instruction Type:Patient Education How to access health informa tion online - Detail Indication:Nonsmoker Start:27-Apr-2019 Instruction Type:Patient Education Patient Instructions Indication:Nonsmoker Start:27-Apr-2019 Instruction Type:Provider Instructions for Treatment How to access health informa tion online Indication:Nonsmoker Start:29-Dec-2018 Instruction Type:Patient Education How to access health informa tion online - Detail Indication:Nonsmoker Start:29-Dec-2018 Instruction Type:Patient Education Patient Instructions Indication:Nonsmoker Start:29-Dec-2018 Instruction Type:Provider Instructions for Treatment DISCONTINUED - TSH (THYROID STIMULATING HORMONE) (32933) Indication:Intrinsic asthma Start:09-Aug-2018 Instruction Type:Patient Education DISCONTINUED - METABOLIC MANRIQUE EL, COMPREHENSIVE (12264) Indication:GERD (gastroesophageal reflux disease) Start:09-Aug-2018 Instruction Type:Patient Education DISCONTINUED - CBC, PLATELET S & MANUAL DIFF (44744) Indication:GERD (gastroesophageal reflux disease) Start:09-Aug-2018 Instruction Type:Patient Education How to access health informa tion online Indication:Nonsmoker Start:09-Aug-2018 Instruction Type:Patient Education How to access health informa tion online - Detail Indication:Nonsmoker Start:09-Aug-2018 Instruction Type:Patient Education Patient Instructions Indication:Encounter for screening for lipid disorder Start:09-Aug-2018 Instruction Type:Provider Instructions for Treatment How to access health informa tion online Indication:BMI 37.0-37.9, adult Start:29-Sep-2017 Instruction Type:Patient Education How to access health informa tion online - Detail Indication:BMI 37.0-37.9, adult Start:29-Sep-2017 Instruction Type:Patient Education Patient Instructions Indication:BMI 37.0-37.9, adult Start:29-Sep-2017 Instruction Type:Provider Instructions for Treatment How to access health informa tion online Indication:BMI 39.0-39.9,adult Start:01-Sep-2017 Instruction Type:Patient Education How to access health informa tion online - Detail Indication:BMI 39.0-39.9,adult Start:01-Sep-2017 Instruction Type:Patient Education Patient Instructions Indication:Upper respiratory virus Start:01-Sep-2017 Instruction Type:Provider Instructions for Treatment How to access health informa tion online Indication:Nonsmoker Start:03-Jul-2017 Instruction Type:Patient Education How to access health informa tion online - Detail Indication:Nonsmoker Start:03-Jul-2017 Instruction Type:Patient Education Patient Instructions Indication:Nonsmoker Start:03-Jul-2017 Instruction Type:Provider Instructions for Treatment How to access health informa tion online Indication:Impaired fasting glucose Start:09-Mar-2017 Instruction Type:Patient Education How to access health informa tion online - Detail Indication:Impaired fasting glucose Start:09-Mar-2017 Instruction Type:Patient Education Patient Instructions Indication:Impaired fasting glucose Start:09-Mar-2017 Instruction Type:Provider Instructions for Treatment How to access health informa tion online Indication:Intrinsic asthma Start:19-Nov-2016 Instruction Type:Patient Education How to access health informa tion online - Detail Indication:Intrinsic asthma Start:19-Nov-2016 Instruction Type:Patient Education Patient Instructions Indication:Intrinsic asthma Start:19-Nov-2016 Instruction Type:Provider Instructions for Treatment How to access health informa tion online Indication:Vitamin D deficiency, unspecified Start:21-Jul-2016 Instruction Type:Patient Education How to access health informa tion online - Detail Indication:Vitamin D deficiency, unspecified Start:21-Jul-2016 Instruction Type:Patient Education Patient Instructions Indication:Vitamin D deficiency, unspecified Start:21-Jul-2016 Instruction Type:Provider Instructions for Treatment How to access health informa tion online Indication:Vitamin D deficiency, unspecified Start:01-Feb-2016 Instruction Type:Patient Education How to access health informa tion online - Detail Indication:Vitamin D deficiency, unspecified Start:01-Feb-2016 Instruction Type:Patient Education Patient Instructions Indication:Vitamin D deficiency, unspecified Start:01-Feb-2016 Instruction Type:Provider Instructions for Treatment How to access health informa tion online Indication:Unspecified asthma with (acute) exacerbation Start:04-Dec-2015 Instruction Type:Patient Education How to access health informa tion online - Detail Indication:Unspecified asthma with (acute) exacerbation Start:04-Dec-2015 Instruction Type:Patient Education Patient Instructions Indication:Unspecified asthma with (acute) exacerbation Start:04-Dec-2015 Instruction Type:Provider Instructions for Treatment How to access health informa tion online Indication:Recurrent cold sores Start:16-Oct-2015 Instruction Type:Patient Education How to access health informa tion online - Detail Indication:Recurrent cold sores Start:16-Oct-2015 Instruction Type:Patient Education Patient Instructions Indication:Recurrent cold sores Start:16-Oct-2015 Instruction Type:Provider Instructions for Treatment How to access health informa tion online Indication:Vitamin D deficiency, unspecified Start:16-Jul-2015 Instruction Type:Patient Education How to access health informa tion online - Detail Indication:Vitamin D deficiency, unspecified Start:16-Jul-2015 Instruction Type:Patient Education Patient Instructions Indication:Vitamin D deficiency, unspecified Start:16-Jul-2015 Instruction Type:Provider Instructions for Treatment How to access health informa tion online - Detail Indication:Obesity Start:16-Apr-2015 Instruction Type:Patient Education Patient Instructions Indication:Obesity Start:16-Apr-2015 Instruction Type:Provider Instructions for Treatment How to access health informa tion online Indication:Subcutaneous nodule Start:19-Mar-2015 Instruction Type:Patient Education How to access health informa tion online - Detail Indication:Subcutaneous nodule Start:19-Mar-2015 Instruction Type:Patient Education Patient Instructions Indication:Subcutaneous nodule Start:19-Mar-2015 Instruction Type:Provider Instructions for Treatment How to access health informa tion online Indication:Vitamin D deficiency, unspecified Start:22-Jan-2015 Instruction Type:Patient Education How to access health informa tion online - Detail Indication:Vitamin D deficiency, unspecified Start:22-Jan-2015 Instruction Type:Patient Education Patient Instructions Indication:Vitamin D deficiency, unspecified Start:22-Jan-2015 Instruction Type:Provider Instructions for Treatment Patient Instructions Indication:Obesity Start:29-Sep-2013 Instruction Type:Provider Instructions for Treatment Patient Instructions Indication:Fatigue Start:18-Jun-2012 Instruction Type:Provider Instructions for Treatment Name Dates Details How to access health informa tion online Indication:Nonsmoker Start:16-Apr-2020 Instruction Type:Patient Education How to access health informa tion online - Detail Indication:Nonsmoker Start:16-Apr-2020 Instruction Type:Patient Education Patient Instructions Indication:Nonsmoker Start:16-Apr-2020 Instruction Type:Provider Instructions for Treatment How to access health informa tion online Indication:Nonsmoker Start:15-Nov-2019 Instruction Type:Patient Education How to access health informa tion online - Detail Indication:Nonsmoker Start:15-Nov-2019 Instruction Type:Patient Education Patient Instructions Indication:Recurrent cold sores Start:15-Nov-2019 Instruction Type:Provider Instructions for Treatment How to access health informa tion online Indication:Nonsmoker Start:01-Aug-2019 Instruction Type:Patient Education How to access health informa tion online - Detail Indication:Nonsmoker Start:01-Aug-2019 Instruction Type:Patient Education Patient Instructions Indication:BMI 39.0-39.9,adult Start:01-Aug-2019 Instruction Type:Provider Instructions for Treatment How to access health informa tion online Indication:Nonsmoker Start:18-Jul-2019 Instruction Type:Patient Education How to access health informa tion online - Detail Indication:Nonsmoker Start:18-Jul-2019 Instruction Type:Patient Education Patient Instructions Indication:Nonsmoker Start:18-Jul-2019 Instruction Type:Provider Instructions for Treatment How to access health informa tion online Indication:BMI 40.0-44.9, adult Start:27-Jun-2019 Instruction Type:Patient Education How to access health informa tion online - Detail Indication:BMI 40.0-44.9, adult Start:27-Jun-2019 Instruction Type:Patient Education Patient Instructions Indication:SOB (shortness of breath) Start:27-Jun-2019 Instruction Type:Provider Instructions for Treatment How to access health informa tion online Indication:Nonsmoker Start:27-Apr-2019 Instruction Type:Patient Education How to access health informa tion online - Detail Indication:Nonsmoker Start:27-Apr-2019 Instruction Type:Patient Education Patient Instructions Indication:Nonsmoker Start:27-Apr-2019 Instruction Type:Provider Instructions for Treatment How to access health informa tion online Indication:Nonsmoker Start:29-Dec-2018 Instruction Type:Patient Education How to access health informa tion online - Detail Indication:Nonsmoker Start:29-Dec-2018 Instruction Type:Patient Education Patient Instructions Indication:Nonsmoker Start:29-Dec-2018 Instruction Type:Provider Instructions for Treatment DISCONTINUED - TSH (THYROID STIMULATING HORMONE) (60653) Indication:Intrinsic asthma Start:09-Aug-2018 Instruction Type:Patient Education DISCONTINUED - METABOLIC MANRIQUE EL, COMPREHENSIVE (31065) Indication:GERD (gastroesophageal reflux disease) Start:09-Aug-2018 Instruction Type:Patient Education DISCONTINUED - CBC, PLATELET S & MANUAL DIFF (71028) Indication:GERD (gastroesophageal reflux disease) Start:09-Aug-2018 Instruction Type:Patient Education How to access health informa tion online Indication:Nonsmoker Start:09-Aug-2018 Instruction Type:Patient Education How to access health informa tion online - Detail Indication:Nonsmoker Start:09-Aug-2018 Instruction Type:Patient Education Patient Instructions Indication:Encounter for screening for lipid disorder Start:09-Aug-2018 Instruction Type:Provider Instructions for Treatment How to access health informa tion online Indication:BMI 37.0-37.9, adult Start:29-Sep-2017 Instruction Type:Patient Education How to access health informa tion online - Detail Indication:BMI 37.0-37.9, adult Start:29-Sep-2017 Instruction Type:Patient Education Patient Instructions Indication:BMI 37.0-37.9, adult Start:29-Sep-2017 Instruction Type:Provider Instructions for Treatment How to access health informa tion online Indication:BMI 39.0-39.9,adult Start:01-Sep-2017 Instruction Type:Patient Education How to access health informa tion online - Detail Indication:BMI 39.0-39.9,adult Start:01-Sep-2017 Instruction Type:Patient Education Patient Instructions Indication:Upper respiratory virus Start:01-Sep-2017 Instruction Type:Provider Instructions for Treatment How to access health informa tion online Indication:Nonsmoker Start:03-Jul-2017 Instruction Type:Patient Education How to access health informa tion online - Detail Indication:Nonsmoker Start:03-Jul-2017 Instruction Type:Patient Education Patient Instructions Indication:Nonsmoker Start:03-Jul-2017 Instruction Type:Provider Instructions for Treatment How to access health informa tion online Indication:Impaired fasting glucose Start:09-Mar-2017 Instruction Type:Patient Education How to access health informa tion online - Detail Indication:Impaired fasting glucose Start:09-Mar-2017 Instruction Type:Patient Education Patient Instructions Indication:Impaired fasting glucose Start:09-Mar-2017 Instruction Type:Provider Instructions for Treatment How to access health informa tion online Indication:Intrinsic asthma Start:19-Nov-2016 Instruction Type:Patient Education How to access health informa tion online - Detail Indication:Intrinsic asthma Start:19-Nov-2016 Instruction Type:Patient Education Patient Instructions Indication:Intrinsic asthma Start:19-Nov-2016 Instruction Type:Provider Instructions for Treatment How to access health informa tion online Indication:Vitamin D deficiency, unspecified Start:21-Jul-2016 Instruction Type:Patient Education How to access health informa tion online - Detail Indication:Vitamin D deficiency, unspecified Start:21-Jul-2016 Instruction Type:Patient Education Patient Instructions Indication:Vitamin D deficiency, unspecified Start:21-Jul-2016 Instruction Type:Provider Instructions for Treatment How to access health informa tion online Indication:Vitamin D deficiency, unspecified Start:01-Feb-2016 Instruction Type:Patient Education How to access health informa tion online - Detail Indication:Vitamin D deficiency, unspecified Start:01-Feb-2016 Instruction Type:Patient Education Patient Instructions Indication:Vitamin D deficiency, unspecified Start:01-Feb-2016 Instruction Type:Provider Instructions for Treatment How to access health informa tion online Indication:Unspecified asthma with (acute) exacerbation Start:04-Dec-2015 Instruction Type:Patient Education How to access health informa tion online - Detail Indication:Unspecified asthma with (acute) exacerbation Start:04-Dec-2015 Instruction Type:Patient Education Patient Instructions Indication:Unspecified asthma with (acute) exacerbation Start:04-Dec-2015 Instruction Type:Provider Instructions for Treatment How to access health informa tion online Indication:Recurrent cold sores Start:16-Oct-2015 Instruction Type:Patient Education How to access health informa tion online - Detail Indication:Recurrent cold sores Start:16-Oct-2015 Instruction Type:Patient Education Patient Instructions Indication:Recurrent cold sores Start:16-Oct-2015 Instruction Type:Provider Instructions for Treatment How to access health informa tion online Indication:Vitamin D deficiency, unspecified Start:16-Jul-2015 Instruction Type:Patient Education How to access health informa tion online - Detail Indication:Vitamin D deficiency, unspecified Start:16-Jul-2015 Instruction Type:Patient Education Patient Instructions Indication:Vitamin D deficiency, unspecified Start:16-Jul-2015 Instruction Type:Provider Instructions for Treatment How to access health informa tion online - Detail Indication:Obesity Start:16-Apr-2015 Instruction Type:Patient Education Patient Instructions Indication:Obesity Start:16-Apr-2015 Instruction Type:Provider Instructions for Treatment How to access health informa tion online Indication:Subcutaneous nodule Start:19-Mar-2015 Instruction Type:Patient Education How to access health informa tion online - Detail Indication:Subcutaneous nodule Start:19-Mar-2015 Instruction Type:Patient Education Patient Instructions Indication:Subcutaneous nodule Start:19-Mar-2015 Instruction Type:Provider Instructions for Treatment How to access health informa tion online Indication:Vitamin D deficiency, unspecified Start:22-Jan-2015 Instruction Type:Patient Education How to access health informa tion online - Detail Indication:Vitamin D deficiency, unspecified Start:22-Jan-2015 Instruction Type:Patient Education Patient Instructions Indication:Vitamin D deficiency, unspecified Start:22-Jan-2015 Instruction Type:Provider Instructions for Treatment Patient Instructions Indication:Obesity Start:29-Sep-2013 Instruction Type:Provider Instructions for Treatment Patient Instructions Indication:Fatigue Start:18-Jun-2012 Instruction Type:Provider Instructions for Treatment Name Dates Details How to access health informa tion online Indication:Nonsmoker Start:16-Apr-2020 Instruction Type:Patient Education How to access health informa tion online - Detail Indication:Nonsmoker Start:16-Apr-2020 Instruction Type:Patient Education Patient Instructions Indication:BMI 39.0-39.9,adult Start:16-Apr-2020 Instruction Type:Provider Instructions for Treatment How to access health informa tion online Indication:Nonsmoker Start:15-Nov-2019 Instruction Type:Patient Education How to access health informa tion online - Detail Indication:Nonsmoker Start:15-Nov-2019 Instruction Type:Patient Education Patient Instructions Indication:Recurrent cold sores Start:15-Nov-2019 Instruction Type:Provider Instructions for Treatment How to access health informa tion online Indication:Nonsmoker Start:01-Aug-2019 Instruction Type:Patient Education How to access health informa tion online - Detail Indication:Nonsmoker Start:01-Aug-2019 Instruction Type:Patient Education Patient Instructions Indication:BMI 39.0-39.9,adult Start:01-Aug-2019 Instruction Type:Provider Instructions for Treatment How to access health informa tion online Indication:Nonsmoker Start:18-Jul-2019 Instruction Type:Patient Education How to access health informa tion online - Detail Indication:Nonsmoker Start:18-Jul-2019 Instruction Type:Patient Education Patient Instructions Indication:Nonsmoker Start:18-Jul-2019 Instruction Type:Provider Instructions for Treatment How to access health informa tion online Indication:BMI 40.0-44.9, adult Start:27-Jun-2019 Instruction Type:Patient Education How to access health informa tion online - Detail Indication:BMI 40.0-44.9, adult Start:27-Jun-2019 Instruction Type:Patient Education Patient Instructions Indication:SOB (shortness of breath) Start:27-Jun-2019 Instruction Type:Provider Instructions for Treatment How to access health informa tion online Indication:Nonsmoker Start:27-Apr-2019 Instruction Type:Patient Education How to access health informa tion online - Detail Indication:Nonsmoker Start:27-Apr-2019 Instruction Type:Patient Education Patient Instructions Indication:Nonsmoker Start:27-Apr-2019 Instruction Type:Provider Instructions for Treatment How to access health informa tion online Indication:Nonsmoker Start:29-Dec-2018 Instruction Type:Patient Education How to access health informa tion online - Detail Indication:Nonsmoker Start:29-Dec-2018 Instruction Type:Patient Education Patient Instructions Indication:Nonsmoker Start:29-Dec-2018 Instruction Type:Provider Instructions for Treatment DISCONTINUED - TSH (THYROID STIMULATING HORMONE) (43082) Indication:Intrinsic asthma Start:09-Aug-2018 Instruction Type:Patient Education DISCONTINUED - METABOLIC MANRIQUE EL, COMPREHENSIVE (24235) Indication:GERD (gastroesophageal reflux disease) Start:09-Aug-2018 Instruction Type:Patient Education DISCONTINUED - CBC, PLATELET S & MANUAL DIFF (33211) Indication:GERD (gastroesophageal reflux disease) Start:09-Aug-2018 Instruction Type:Patient Education How to access health informa tion online Indication:Nonsmoker Start:09-Aug-2018 Instruction Type:Patient Education How to access health informa tion online - Detail Indication:Nonsmoker Start:09-Aug-2018 Instruction Type:Patient Education Patient Instructions Indication:Encounter for screening for lipid disorder Start:09-Aug-2018 Instruction Type:Provider Instructions for Treatment How to access health informa tion online Indication:BMI 37.0-37.9, adult Start:29-Sep-2017 Instruction Type:Patient Education How to access health informa tion online - Detail Indication:BMI 37.0-37.9, adult Start:29-Sep-2017 Instruction Type:Patient Education Patient Instructions Indication:BMI 37.0-37.9, adult Start:29-Sep-2017 Instruction Type:Provider Instructions for Treatment How to access health informa tion online Indication:BMI 39.0-39.9,adult Start:01-Sep-2017 Instruction Type:Patient Education How to access health informa tion online - Detail Indication:BMI 39.0-39.9,adult Start:01-Sep-2017 Instruction Type:Patient Education Patient Instructions Indication:Upper respiratory virus Start:01-Sep-2017 Instruction Type:Provider Instructions for Treatment How to access health informa tion online Indication:Nonsmoker Start:03-Jul-2017 Instruction Type:Patient Education How to access health informa tion online - Detail Indication:Nonsmoker Start:03-Jul-2017 Instruction Type:Patient Education Patient Instructions Indication:Nonsmoker Start:03-Jul-2017 Instruction Type:Provider Instructions for Treatment How to access health informa tion online Indication:Impaired fasting glucose Start:09-Mar-2017 Instruction Type:Patient Education How to access health informa tion online - Detail Indication:Impaired fasting glucose Start:09-Mar-2017 Instruction Type:Patient Education Patient Instructions Indication:Impaired fasting glucose Start:09-Mar-2017 Instruction Type:Provider Instructions for Treatment How to access health informa tion online Indication:Intrinsic asthma Start:19-Nov-2016 Instruction Type:Patient Education How to access health informa tion online - Detail Indication:Intrinsic asthma Start:19-Nov-2016 Instruction Type:Patient Education Patient Instructions Indication:Intrinsic asthma Start:19-Nov-2016 Instruction Type:Provider Instructions for Treatment How to access health informa tion online Indication:Vitamin D deficiency, unspecified Start:21-Jul-2016 Instruction Type:Patient Education How to access health informa tion online - Detail Indication:Vitamin D deficiency, unspecified Start:21-Jul-2016 Instruction Type:Patient Education Patient Instructions Indication:Vitamin D deficiency, unspecified Start:21-Jul-2016 Instruction Type:Provider Instructions for Treatment How to access health informa tion online Indication:Vitamin D deficiency, unspecified Start:01-Feb-2016 Instruction Type:Patient Education How to access health informa tion online - Detail Indication:Vitamin D deficiency, unspecified Start:01-Feb-2016 Instruction Type:Patient Education Patient Instructions Indication:Vitamin D deficiency, unspecified Start:01-Feb-2016 Instruction Type:Provider Instructions for Treatment How to access health informa tion online Indication:Unspecified asthma with (acute) exacerbation Start:04-Dec-2015 Instruction Type:Patient Education How to access health informa tion online - Detail Indication:Unspecified asthma with (acute) exacerbation Start:04-Dec-2015 Instruction Type:Patient Education Patient Instructions Indication:Unspecified asthma with (acute) exacerbation Start:04-Dec-2015 Instruction Type:Provider Instructions for Treatment How to access health informa tion online Indication:Recurrent cold sores Start:16-Oct-2015 Instruction Type:Patient Education How to access health informa tion online - Detail Indication:Recurrent cold sores Start:16-Oct-2015 Instruction Type:Patient Education Patient Instructions Indication:Recurrent cold sores Start:16-Oct-2015 Instruction Type:Provider Instructions for Treatment How to access health informa tion online Indication:Vitamin D deficiency, unspecified Start:16-Jul-2015 Instruction Type:Patient Education How to access health informa tion online - Detail Indication:Vitamin D deficiency, unspecified Start:16-Jul-2015 Instruction Type:Patient Education Patient Instructions Indication:Vitamin D deficiency, unspecified Start:16-Jul-2015 Instruction Type:Provider Instructions for Treatment How to access health informa tion online - Detail Indication:Obesity Start:16-Apr-2015 Instruction Type:Patient Education Patient Instructions Indication:Obesity Start:16-Apr-2015 Instruction Type:Provider Instructions for Treatment How to access health informa tion online Indication:Subcutaneous nodule Start:19-Mar-2015 Instruction Type:Patient Education How to access health informa tion online - Detail Indication:Subcutaneous nodule Start:19-Mar-2015 Instruction Type:Patient Education Patient Instructions Indication:Subcutaneous nodule Start:19-Mar-2015 Instruction Type:Provider Instructions for Treatment How to access health informa tion online Indication:Vitamin D deficiency, unspecified Start:22-Jan-2015 Instruction Type:Patient Education How to access health informa tion online - Detail Indication:Vitamin D deficiency, unspecified Start:22-Jan-2015 Instruction Type:Patient Education Patient Instructions Indication:Vitamin D deficiency, unspecified Start:22-Jan-2015 Instruction Type:Provider Instructions for Treatment Patient Instructions Indication:Obesity Start:29-Sep-2013 Instruction Type:Provider Instructions for Treatment Patient Instructions Indication:Fatigue Start:18-Jun-2012 Instruction Type:Provider Instructions for Treatment Name Dates Details How to access health informa tion online Indication:Nonsmoker Start:16-Apr-2020 Instruction Type:Patient Education How to access health informa tion online - Detail Indication:Nonsmoker Start:16-Apr-2020 Instruction Type:Patient Education Patient Instructions Indication:BMI 39.0-39.9,adult Start:16-Apr-2020 Instruction Type:Provider Instructions for Treatment How to access health informa tion online Indication:Nonsmoker Start:15-Nov-2019 Instruction Type:Patient Education How to access health informa tion online - Detail Indication:Nonsmoker Start:15-Nov-2019 Instruction Type:Patient Education Patient Instructions Indication:Recurrent cold sores Start:15-Nov-2019 Instruction Type:Provider Instructions for Treatment How to access health informa tion online Indication:Nonsmoker Start:01-Aug-2019 Instruction Type:Patient Education How to access health informa tion online - Detail Indication:Nonsmoker Start:01-Aug-2019 Instruction Type:Patient Education Patient Instructions Indication:BMI 39.0-39.9,adult Start:01-Aug-2019 Instruction Type:Provider Instructions for Treatment How to access health informa tion online Indication:Nonsmoker Start:18-Jul-2019 Instruction Type:Patient Education How to access health informa tion online - Detail Indication:Nonsmoker Start:18-Jul-2019 Instruction Type:Patient Education Patient Instructions Indication:Nonsmoker Start:18-Jul-2019 Instruction Type:Provider Instructions for Treatment How to access health informa tion online Indication:BMI 40.0-44.9, adult Start:27-Jun-2019 Instruction Type:Patient Education How to access health informa tion online - Detail Indication:BMI 40.0-44.9, adult Start:27-Jun-2019 Instruction Type:Patient Education Patient Instructions Indication:SOB (shortness of breath) Start:27-Jun-2019 Instruction Type:Provider Instructions for Treatment How to access health informa tion online Indication:Nonsmoker Start:27-Apr-2019 Instruction Type:Patient Education How to access health informa tion online - Detail Indication:Nonsmoker Start:27-Apr-2019 Instruction Type:Patient Education Patient Instructions Indication:Nonsmoker Start:27-Apr-2019 Instruction Type:Provider Instructions for Treatment How to access health informa tion online Indication:Nonsmoker Start:29-Dec-2018 Instruction Type:Patient Education How to access health informa tion online - Detail Indication:Nonsmoker Start:29-Dec-2018 Instruction Type:Patient Education Patient Instructions Indication:Nonsmoker Start:29-Dec-2018 Instruction Type:Provider Instructions for Treatment DISCONTINUED - TSH (THYROID STIMULATING HORMONE) (40445) Indication:Intrinsic asthma Start:09-Aug-2018 Instruction Type:Patient Education DISCONTINUED - METABOLIC MANRIQUE EL, COMPREHENSIVE (34213) Indication:GERD (gastroesophageal reflux disease) Start:09-Aug-2018 Instruction Type:Patient Education DISCONTINUED - CBC, PLATELET S & MANUAL DIFF (52767) Indication:GERD (gastroesophageal reflux disease) Start:09-Aug-2018 Instruction Type:Patient Education How to access health informa tion online Indication:Nonsmoker Start:09-Aug-2018 Instruction Type:Patient Education How to access health informa tion online - Detail Indication:Nonsmoker Start:09-Aug-2018 Instruction Type:Patient Education Patient Instructions Indication:Encounter for screening for lipid disorder Start:09-Aug-2018 Instruction Type:Provider Instructions for Treatment How to access health informa tion online Indication:BMI 37.0-37.9, adult Start:29-Sep-2017 Instruction Type:Patient Education How to access health informa tion online - Detail Indication:BMI 37.0-37.9, adult Start:29-Sep-2017 Instruction Type:Patient Education Patient Instructions Indication:BMI 37.0-37.9, adult Start:29-Sep-2017 Instruction Type:Provider Instructions for Treatment How to access health informa tion online Indication:BMI 39.0-39.9,adult Start:01-Sep-2017 Instruction Type:Patient Education How to access health informa tion online - Detail Indication:BMI 39.0-39.9,adult Start:01-Sep-2017 Instruction Type:Patient Education Patient Instructions Indication:Upper respiratory virus Start:01-Sep-2017 Instruction Type:Provider Instructions for Treatment How to access health informa tion online Indication:Nonsmoker Start:03-Jul-2017 Instruction Type:Patient Education How to access health informa tion online - Detail Indication:Nonsmoker Start:03-Jul-2017 Instruction Type:Patient Education Patient Instructions Indication:Nonsmoker Start:03-Jul-2017 Instruction Type:Provider Instructions for Treatment How to access health informa tion online Indication:Impaired fasting glucose Start:09-Mar-2017 Instruction Type:Patient Education How to access health informa tion online - Detail Indication:Impaired fasting glucose Start:09-Mar-2017 Instruction Type:Patient Education Patient Instructions Indication:Impaired fasting glucose Start:09-Mar-2017 Instruction Type:Provider Instructions for Treatment How to access health informa tion online Indication:Intrinsic asthma Start:19-Nov-2016 Instruction Type:Patient Education How to access health informa tion online - Detail Indication:Intrinsic asthma Start:19-Nov-2016 Instruction Type:Patient Education Patient Instructions Indication:Intrinsic asthma Start:19-Nov-2016 Instruction Type:Provider Instructions for Treatment How to access health informa tion online Indication:Vitamin D deficiency, unspecified Start:21-Jul-2016 Instruction Type:Patient Education How to access health informa tion online - Detail Indication:Vitamin D deficiency, unspecified Start:21-Jul-2016 Instruction Type:Patient Education Patient Instructions Indication:Vitamin D deficiency, unspecified Start:21-Jul-2016 Instruction Type:Provider Instructions for Treatment How to access health informa tion online Indication:Vitamin D deficiency, unspecified Start:01-Feb-2016 Instruction Type:Patient Education How to access health informa tion online - Detail Indication:Vitamin D deficiency, unspecified Start:01-Feb-2016 Instruction Type:Patient Education Patient Instructions Indication:Vitamin D deficiency, unspecified Start:01-Feb-2016 Instruction Type:Provider Instructions for Treatment How to access health informa tion online Indication:Unspecified asthma with (acute) exacerbation Start:04-Dec-2015 Instruction Type:Patient Education How to access health informa tion online - Detail Indication:Unspecified asthma with (acute) exacerbation Start:04-Dec-2015 Instruction Type:Patient Education Patient Instructions Indication:Unspecified asthma with (acute) exacerbation Start:04-Dec-2015 Instruction Type:Provider Instructions for Treatment How to access health informa tion online Indication:Recurrent cold sores Start:16-Oct-2015 Instruction Type:Patient Education How to access health informa tion online - Detail Indication:Recurrent cold sores Start:16-Oct-2015 Instruction Type:Patient Education Patient Instructions Indication:Recurrent cold sores Start:16-Oct-2015 Instruction Type:Provider Instructions for Treatment How to access health informa tion online Indication:Vitamin D deficiency, unspecified Start:16-Jul-2015 Instruction Type:Patient Education How to access health informa tion online - Detail Indication:Vitamin D deficiency, unspecified Start:16-Jul-2015 Instruction Type:Patient Education Patient Instructions Indication:Vitamin D deficiency, unspecified Start:16-Jul-2015 Instruction Type:Provider Instructions for Treatment How to access health informa tion online - Detail Indication:Obesity Start:16-Apr-2015 Instruction Type:Patient Education Patient Instructions Indication:Obesity Start:16-Apr-2015 Instruction Type:Provider Instructions for Treatment How to access health informa tion online Indication:Subcutaneous nodule Start:19-Mar-2015 Instruction Type:Patient Education How to access health informa tion online - Detail Indication:Subcutaneous nodule Start:19-Mar-2015 Instruction Type:Patient Education Patient Instructions Indication:Subcutaneous nodule Start:19-Mar-2015 Instruction Type:Provider Instructions for Treatment How to access health informa tion online Indication:Vitamin D deficiency, unspecified Start:22-Jan-2015 Instruction Type:Patient Education How to access health informa tion online - Detail Indication:Vitamin D deficiency, unspecified Start:22-Jan-2015 Instruction Type:Patient Education Patient Instructions Indication:Vitamin D deficiency, unspecified Start:22-Jan-2015 Instruction Type:Provider Instructions for Treatment Patient Instructions Indication:Obesity Start:29-Sep-2013 Instruction Type:Provider Instructions for Treatment Patient Instructions Indication:Fatigue Start:18-Jun-2012 Instruction Type:Provider Instructions for Treatment Name Dates Details How to access health informa tion online Indication:Nonsmoker Start:16-Apr-2020 Instruction Type:Patient Education How to access health informa tion online - Detail Indication:Nonsmoker Start:16-Apr-2020 Instruction Type:Patient Education Patient Instructions Indication:BMI 39.0-39.9,adult Start:16-Apr-2020 Instruction Type:Provider Instructions for Treatment How to access health informa tion online Indication:Nonsmoker Start:15-Nov-2019 Instruction Type:Patient Education How to access health informa tion online - Detail Indication:Nonsmoker Start:15-Nov-2019 Instruction Type:Patient Education Patient Instructions Indication:Recurrent cold sores Start:15-Nov-2019 Instruction Type:Provider Instructions for Treatment How to access health informa tion online Indication:Nonsmoker Start:01-Aug-2019 Instruction Type:Patient Education How to access health informa tion online - Detail Indication:Nonsmoker Start:01-Aug-2019 Instruction Type:Patient Education Patient Instructions Indication:BMI 39.0-39.9,adult Start:01-Aug-2019 Instruction Type:Provider Instructions for Treatment How to access health informa tion online Indication:Nonsmoker Start:18-Jul-2019 Instruction Type:Patient Education How to access health informa tion online - Detail Indication:Nonsmoker Start:18-Jul-2019 Instruction Type:Patient Education Patient Instructions Indication:Nonsmoker Start:18-Jul-2019 Instruction Type:Provider Instructions for Treatment How to access health informa tion online Indication:BMI 40.0-44.9, adult Start:27-Jun-2019 Instruction Type:Patient Education How to access health informa tion online - Detail Indication:BMI 40.0-44.9, adult Start:27-Jun-2019 Instruction Type:Patient Education Patient Instructions Indication:SOB (shortness of breath) Start:27-Jun-2019 Instruction Type:Provider Instructions for Treatment How to access health informa tion online Indication:Nonsmoker Start:27-Apr-2019 Instruction Type:Patient Education How to access health informa tion online - Detail Indication:Nonsmoker Start:27-Apr-2019 Instruction Type:Patient Education Patient Instructions Indication:Nonsmoker Start:27-Apr-2019 Instruction Type:Provider Instructions for Treatment How to access health informa tion online Indication:Nonsmoker Start:29-Dec-2018 Instruction Type:Patient Education How to access health informa tion online - Detail Indication:Nonsmoker Start:29-Dec-2018 Instruction Type:Patient Education Patient Instructions Indication:Nonsmoker Start:29-Dec-2018 Instruction Type:Provider Instructions for Treatment DISCONTINUED - TSH (THYROID STIMULATING HORMONE) (12432) Indication:Intrinsic asthma Start:09-Aug-2018 Instruction Type:Patient Education DISCONTINUED - METABOLIC MANRIQUE EL, COMPREHENSIVE (35592) Indication:GERD (gastroesophageal reflux disease) Start:09-Aug-2018 Instruction Type:Patient Education DISCONTINUED - CBC, PLATELET S & MANUAL DIFF (03271) Indication:GERD (gastroesophageal reflux disease) Start:09-Aug-2018 Instruction Type:Patient Education How to access health informa tion online Indication:Nonsmoker Start:09-Aug-2018 Instruction Type:Patient Education How to access health informa tion online - Detail Indication:Nonsmoker Start:09-Aug-2018 Instruction Type:Patient Education Patient Instructions Indication:Encounter for screening for lipid disorder Start:09-Aug-2018 Instruction Type:Provider Instructions for Treatment How to access health informa tion online Indication:BMI 37.0-37.9, adult Start:29-Sep-2017 Instruction Type:Patient Education How to access health informa tion online - Detail Indication:BMI 37.0-37.9, adult Start:29-Sep-2017 Instruction Type:Patient Education Patient Instructions Indication:BMI 37.0-37.9, adult Start:29-Sep-2017 Instruction Type:Provider Instructions for Treatment How to access health informa tion online Indication:BMI 39.0-39.9,adult Start:01-Sep-2017 Instruction Type:Patient Education How to access health informa tion online - Detail Indication:BMI 39.0-39.9,adult Start:01-Sep-2017 Instruction Type:Patient Education Patient Instructions Indication:Upper respiratory virus Start:01-Sep-2017 Instruction Type:Provider Instructions for Treatment How to access health informa tion online Indication:Nonsmoker Start:03-Jul-2017 Instruction Type:Patient Education How to access health informa tion online - Detail Indication:Nonsmoker Start:03-Jul-2017 Instruction Type:Patient Education Patient Instructions Indication:Nonsmoker Start:03-Jul-2017 Instruction Type:Provider Instructions for Treatment How to access health informa tion online Indication:Impaired fasting glucose Start:09-Mar-2017 Instruction Type:Patient Education How to access health informa tion online - Detail Indication:Impaired fasting glucose Start:09-Mar-2017 Instruction Type:Patient Education Patient Instructions Indication:Impaired fasting glucose Start:09-Mar-2017 Instruction Type:Provider Instructions for Treatment How to access health informa tion online Indication:Intrinsic asthma Start:19-Nov-2016 Instruction Type:Patient Education How to access health informa tion online - Detail Indication:Intrinsic asthma Start:19-Nov-2016 Instruction Type:Patient Education Patient Instructions Indication:Intrinsic asthma Start:19-Nov-2016 Instruction Type:Provider Instructions for Treatment How to access health informa tion online Indication:Vitamin D deficiency, unspecified Start:21-Jul-2016 Instruction Type:Patient Education How to access health informa tion online - Detail Indication:Vitamin D deficiency, unspecified Start:21-Jul-2016 Instruction Type:Patient Education Patient Instructions Indication:Vitamin D deficiency, unspecified Start:21-Jul-2016 Instruction Type:Provider Instructions for Treatment How to access health informa tion online Indication:Vitamin D deficiency, unspecified Start:01-Feb-2016 Instruction Type:Patient Education How to access health informa tion online - Detail Indication:Vitamin D deficiency, unspecified Start:01-Feb-2016 Instruction Type:Patient Education Patient Instructions Indication:Vitamin D deficiency, unspecified Start:01-Feb-2016 Instruction Type:Provider Instructions for Treatment How to access health informa tion online Indication:Unspecified asthma with (acute) exacerbation Start:04-Dec-2015 Instruction Type:Patient Education How to access health informa tion online - Detail Indication:Unspecified asthma with (acute) exacerbation Start:04-Dec-2015 Instruction Type:Patient Education Patient Instructions Indication:Unspecified asthma with (acute) exacerbation Start:04-Dec-2015 Instruction Type:Provider Instructions for Treatment How to access health informa tion online Indication:Recurrent cold sores Start:16-Oct-2015 Instruction Type:Patient Education How to access health informa tion online - Detail Indication:Recurrent cold sores Start:16-Oct-2015 Instruction Type:Patient Education Patient Instructions Indication:Recurrent cold sores Start:16-Oct-2015 Instruction Type:Provider Instructions for Treatment How to access health informa tion online Indication:Vitamin D deficiency, unspecified Start:16-Jul-2015 Instruction Type:Patient Education How to access health informa tion online - Detail Indication:Vitamin D deficiency, unspecified Start:16-Jul-2015 Instruction Type:Patient Education Patient Instructions Indication:Vitamin D deficiency, unspecified Start:16-Jul-2015 Instruction Type:Provider Instructions for Treatment How to access health informa tion online - Detail Indication:Obesity Start:16-Apr-2015 Instruction Type:Patient Education Patient Instructions Indication:Obesity Start:16-Apr-2015 Instruction Type:Provider Instructions for Treatment How to access health informa tion online Indication:Subcutaneous nodule Start:19-Mar-2015 Instruction Type:Patient Education How to access health informa tion online - Detail Indication:Subcutaneous nodule Start:19-Mar-2015 Instruction Type:Patient Education Patient Instructions Indication:Subcutaneous nodule Start:19-Mar-2015 Instruction Type:Provider Instructions for Treatment How to access health informa tion online Indication:Vitamin D deficiency, unspecified Start:22-Jan-2015 Instruction Type:Patient Education How to access health informa tion online - Detail Indication:Vitamin D deficiency, unspecified Start:22-Jan-2015 Instruction Type:Patient Education Patient Instructions Indication:Vitamin D deficiency, unspecified Start:22-Jan-2015 Instruction Type:Provider Instructions for Treatment Patient Instructions Indication:Obesity Start:29-Sep-2013 Instruction Type:Provider Instructions for Treatment Patient Instructions Indication:Fatigue Start:18-Jun-2012 Instruction Type:Provider Instructions for Treatment Name Dates Details How to access health informa tion online Indication:Nonsmoker Start:20-Aug-2020 Instruction Type:Patient Education How to access health informa tion online - Detail Indication:Nonsmoker Start:20-Aug-2020 Instruction Type:Patient Education Patient Instructions Indication:Nonsmoker Start:20-Aug-2020 Instruction Type:Provider Instructions for Treatment How to access health informa tion online Indication:Nonsmoker Start:16-Apr-2020 Instruction Type:Patient Education How to access health informa tion online - Detail Indication:Nonsmoker Start:16-Apr-2020 Instruction Type:Patient Education Patient Instructions Indication:BMI 39.0-39.9,adult Start:16-Apr-2020 Instruction Type:Provider Instructions for Treatment How to access health informa tion online Indication:Nonsmoker Start:15-Nov-2019 Instruction Type:Patient Education How to access health informa tion online - Detail Indication:Nonsmoker Start:15-Nov-2019 Instruction Type:Patient Education Patient Instructions Indication:Recurrent cold sores Start:15-Nov-2019 Instruction Type:Provider Instructions for Treatment How to access health informa tion online Indication:Nonsmoker Start:01-Aug-2019 Instruction Type:Patient Education How to access health informa tion online - Detail Indication:Nonsmoker Start:01-Aug-2019 Instruction Type:Patient Education Patient Instructions Indication:BMI 39.0-39.9,adult Start:01-Aug-2019 Instruction Type:Provider Instructions for Treatment How to access health informa tion online Indication:Nonsmoker Start:18-Jul-2019 Instruction Type:Patient Education How to access health informa tion online - Detail Indication:Nonsmoker Start:18-Jul-2019 Instruction Type:Patient Education Patient Instructions Indication:Nonsmoker Start:18-Jul-2019 Instruction Type:Provider Instructions for Treatment How to access health informa tion online Indication:BMI 40.0-44.9, adult Start:27-Jun-2019 Instruction Type:Patient Education How to access health informa tion online - Detail Indication:BMI 40.0-44.9, adult Start:27-Jun-2019 Instruction Type:Patient Education Patient Instructions Indication:SOB (shortness of breath) Start:27-Jun-2019 Instruction Type:Provider Instructions for Treatment How to access health informa tion online Indication:Nonsmoker Start:27-Apr-2019 Instruction Type:Patient Education How to access health informa tion online - Detail Indication:Nonsmoker Start:27-Apr-2019 Instruction Type:Patient Education Patient Instructions Indication:Nonsmoker Start:27-Apr-2019 Instruction Type:Provider Instructions for Treatment How to access health informa tion online Indication:Nonsmoker Start:29-Dec-2018 Instruction Type:Patient Education How to access health informa tion online - Detail Indication:Nonsmoker Start:29-Dec-2018 Instruction Type:Patient Education Patient Instructions Indication:Nonsmoker Start:29-Dec-2018 Instruction Type:Provider Instructions for Treatment DISCONTINUED - TSH (THYROID STIMULATING HORMONE) (78056) Indication:Intrinsic asthma Start:09-Aug-2018 Instruction Type:Patient Education DISCONTINUED - METABOLIC MANRIQUE EL, COMPREHENSIVE (85765) Indication:GERD (gastroesophageal reflux disease) Start:09-Aug-2018 Instruction Type:Patient Education DISCONTINUED - CBC, PLATELET S & MANUAL DIFF (90069) Indication:GERD (gastroesophageal reflux disease) Start:09-Aug-2018 Instruction Type:Patient Education How to access health informa tion online Indication:Nonsmoker Start:09-Aug-2018 Instruction Type:Patient Education How to access health informa tion online - Detail Indication:Nonsmoker Start:09-Aug-2018 Instruction Type:Patient Education Patient Instructions Indication:Encounter for screening for lipid disorder Start:09-Aug-2018 Instruction Type:Provider Instructions for Treatment How to access health informa tion online Indication:BMI 37.0-37.9, adult Start:29-Sep-2017 Instruction Type:Patient Education How to access health informa tion online - Detail Indication:BMI 37.0-37.9, adult Start:29-Sep-2017 Instruction Type:Patient Education Patient Instructions Indication:BMI 37.0-37.9, adult Start:29-Sep-2017 Instruction Type:Provider Instructions for Treatment How to access health informa tion online Indication:BMI 39.0-39.9,adult Start:01-Sep-2017 Instruction Type:Patient Education How to access health informa tion online - Detail Indication:BMI 39.0-39.9,adult Start:01-Sep-2017 Instruction Type:Patient Education Patient Instructions Indication:Upper respiratory virus Start:01-Sep-2017 Instruction Type:Provider Instructions for Treatment How to access health informa tion online Indication:Nonsmoker Start:03-Jul-2017 Instruction Type:Patient Education How to access health informa tion online - Detail Indication:Nonsmoker Start:03-Jul-2017 Instruction Type:Patient Education Patient Instructions Indication:Nonsmoker Start:03-Jul-2017 Instruction Type:Provider Instructions for Treatment How to access health informa tion online Indication:Impaired fasting glucose Start:09-Mar-2017 Instruction Type:Patient Education How to access health informa tion online - Detail Indication:Impaired fasting glucose Start:09-Mar-2017 Instruction Type:Patient Education Patient Instructions Indication:Impaired fasting glucose Start:09-Mar-2017 Instruction Type:Provider Instructions for Treatment How to access health informa tion online Indication:Intrinsic asthma Start:19-Nov-2016 Instruction Type:Patient Education How to access health informa tion online - Detail Indication:Intrinsic asthma Start:19-Nov-2016 Instruction Type:Patient Education Patient Instructions Indication:Intrinsic asthma Start:19-Nov-2016 Instruction Type:Provider Instructions for Treatment How to access health informa tion online Indication:Vitamin D deficiency, unspecified Start:21-Jul-2016 Instruction Type:Patient Education How to access health informa tion online - Detail Indication:Vitamin D deficiency, unspecified Start:21-Jul-2016 Instruction Type:Patient Education Patient Instructions Indication:Vitamin D deficiency, unspecified Start:21-Jul-2016 Instruction Type:Provider Instructions for Treatment How to access health informa tion online Indication:Vitamin D deficiency, unspecified Start:01-Feb-2016 Instruction Type:Patient Education How to access health informa tion online - Detail Indication:Vitamin D deficiency, unspecified Start:01-Feb-2016 Instruction Type:Patient Education Patient Instructions Indication:Vitamin D deficiency, unspecified Start:01-Feb-2016 Instruction Type:Provider Instructions for Treatment How to access health informa tion online Indication:Unspecified asthma with (acute) exacerbation Start:04-Dec-2015 Instruction Type:Patient Education How to access health informa tion online - Detail Indication:Unspecified asthma with (acute) exacerbation Start:04-Dec-2015 Instruction Type:Patient Education Patient Instructions Indication:Unspecified asthma with (acute) exacerbation Start:04-Dec-2015 Instruction Type:Provider Instructions for Treatment How to access health informa tion online Indication:Recurrent cold sores Start:16-Oct-2015 Instruction Type:Patient Education How to access health informa tion online - Detail Indication:Recurrent cold sores Start:16-Oct-2015 Instruction Type:Patient Education Patient Instructions Indication:Recurrent cold sores Start:16-Oct-2015 Instruction Type:Provider Instructions for Treatment How to access health informa tion online Indication:Vitamin D deficiency, unspecified Start:16-Jul-2015 Instruction Type:Patient Education How to access health informa tion online - Detail Indication:Vitamin D deficiency, unspecified Start:16-Jul-2015 Instruction Type:Patient Education Patient Instructions Indication:Vitamin D deficiency, unspecified Start:16-Jul-2015 Instruction Type:Provider Instructions for Treatment How to access health informa tion online - Detail Indication:Obesity Start:16-Apr-2015 Instruction Type:Patient Education Patient Instructions Indication:Obesity Start:16-Apr-2015 Instruction Type:Provider Instructions for Treatment How to access health informa tion online Indication:Subcutaneous nodule Start:19-Mar-2015 Instruction Type:Patient Education How to access health informa tion online - Detail Indication:Subcutaneous nodule Start:19-Mar-2015 Instruction Type:Patient Education Patient Instructions Indication:Subcutaneous nodule Start:19-Mar-2015 Instruction Type:Provider Instructions for Treatment How to access health informa tion online Indication:Vitamin D deficiency, unspecified Start:22-Jan-2015 Instruction Type:Patient Education How to access health informa tion online - Detail Indication:Vitamin D deficiency, unspecified Start:22-Jan-2015 Instruction Type:Patient Education Patient Instructions Indication:Vitamin D deficiency, unspecified Start:22-Jan-2015 Instruction Type:Provider Instructions for Treatment Patient Instructions Indication:Obesity Start:29-Sep-2013 Instruction Type:Provider Instructions for Treatment Patient Instructions Indication:Fatigue Start:18-Jun-2012 Instruction Type:Provider Instructions for Treatment Name Dates Details How to access health informa tion online Indication:Nonsmoker Start:20-Aug-2020 Instruction Type:Patient Education How to access health informa tion online - Detail Indication:Nonsmoker Start:20-Aug-2020 Instruction Type:Patient Education Patient Instructions Indication:Nonsmoker Start:20-Aug-2020 Instruction Type:Provider Instructions for Treatment How to access health informa tion online Indication:Nonsmoker Start:16-Apr-2020 Instruction Type:Patient Education How to access health informa tion online - Detail Indication:Nonsmoker Start:16-Apr-2020 Instruction Type:Patient Education Patient Instructions Indication:BMI 39.0-39.9,adult Start:16-Apr-2020 Instruction Type:Provider Instructions for Treatment How to access health informa tion online Indication:Nonsmoker Start:15-Nov-2019 Instruction Type:Patient Education How to access health informa tion online - Detail Indication:Nonsmoker Start:15-Nov-2019 Instruction Type:Patient Education Patient Instructions Indication:Recurrent cold sores Start:15-Nov-2019 Instruction Type:Provider Instructions for Treatment How to access health informa tion online Indication:Nonsmoker Start:01-Aug-2019 Instruction Type:Patient Education How to access health informa tion online - Detail Indication:Nonsmoker Start:01-Aug-2019 Instruction Type:Patient Education Patient Instructions Indication:BMI 39.0-39.9,adult Start:01-Aug-2019 Instruction Type:Provider Instructions for Treatment How to access health informa tion online Indication:Nonsmoker Start:18-Jul-2019 Instruction Type:Patient Education How to access health informa tion online - Detail Indication:Nonsmoker Start:18-Jul-2019 Instruction Type:Patient Education Patient Instructions Indication:Nonsmoker Start:18-Jul-2019 Instruction Type:Provider Instructions for Treatment How to access health informa tion online Indication:BMI 40.0-44.9, adult Start:27-Jun-2019 Instruction Type:Patient Education How to access health informa tion online - Detail Indication:BMI 40.0-44.9, adult Start:27-Jun-2019 Instruction Type:Patient Education Patient Instructions Indication:SOB (shortness of breath) Start:27-Jun-2019 Instruction Type:Provider Instructions for Treatment How to access health informa tion online Indication:Nonsmoker Start:27-Apr-2019 Instruction Type:Patient Education How to access health informa tion online - Detail Indication:Nonsmoker Start:27-Apr-2019 Instruction Type:Patient Education Patient Instructions Indication:Nonsmoker Start:27-Apr-2019 Instruction Type:Provider Instructions for Treatment How to access health informa tion online Indication:Nonsmoker Start:29-Dec-2018 Instruction Type:Patient Education How to access health informa tion online - Detail Indication:Nonsmoker Start:29-Dec-2018 Instruction Type:Patient Education Patient Instructions Indication:Nonsmoker Start:29-Dec-2018 Instruction Type:Provider Instructions for Treatment DISCONTINUED - TSH (THYROID STIMULATING HORMONE) (58301) Indication:Intrinsic asthma Start:09-Aug-2018 Instruction Type:Patient Education DISCONTINUED - METABOLIC MANRIQUE EL, COMPREHENSIVE (93679) Indication:GERD (gastroesophageal reflux disease) Start:09-Aug-2018 Instruction Type:Patient Education DISCONTINUED - CBC, PLATELET S & MANUAL DIFF (87852) Indication:GERD (gastroesophageal reflux disease) Start:09-Aug-2018 Instruction Type:Patient Education How to access health informa tion online Indication:Nonsmoker Start:09-Aug-2018 Instruction Type:Patient Education How to access health informa tion online - Detail Indication:Nonsmoker Start:09-Aug-2018 Instruction Type:Patient Education Patient Instructions Indication:Encounter for screening for lipid disorder Start:09-Aug-2018 Instruction Type:Provider Instructions for Treatment How to access health informa tion online Indication:BMI 37.0-37.9, adult Start:29-Sep-2017 Instruction Type:Patient Education How to access health informa tion online - Detail Indication:BMI 37.0-37.9, adult Start:29-Sep-2017 Instruction Type:Patient Education Patient Instructions Indication:BMI 37.0-37.9, adult Start:29-Sep-2017 Instruction Type:Provider Instructions for Treatment How to access health informa tion online Indication:BMI 39.0-39.9,adult Start:01-Sep-2017 Instruction Type:Patient Education How to access health informa tion online - Detail Indication:BMI 39.0-39.9,adult Start:01-Sep-2017 Instruction Type:Patient Education Patient Instructions Indication:Upper respiratory virus Start:01-Sep-2017 Instruction Type:Provider Instructions for Treatment How to access health informa tion online Indication:Nonsmoker Start:03-Jul-2017 Instruction Type:Patient Education How to access health informa tion online - Detail Indication:Nonsmoker Start:03-Jul-2017 Instruction Type:Patient Education Patient Instructions Indication:Nonsmoker Start:03-Jul-2017 Instruction Type:Provider Instructions for Treatment How to access health informa tion online Indication:Impaired fasting glucose Start:09-Mar-2017 Instruction Type:Patient Education How to access health informa tion online - Detail Indication:Impaired fasting glucose Start:09-Mar-2017 Instruction Type:Patient Education Patient Instructions Indication:Impaired fasting glucose Start:09-Mar-2017 Instruction Type:Provider Instructions for Treatment How to access health informa tion online Indication:Intrinsic asthma Start:19-Nov-2016 Instruction Type:Patient Education How to access health informa tion online - Detail Indication:Intrinsic asthma Start:19-Nov-2016 Instruction Type:Patient Education Patient Instructions Indication:Intrinsic asthma Start:19-Nov-2016 Instruction Type:Provider Instructions for Treatment How to access health informa tion online Indication:Vitamin D deficiency, unspecified Start:21-Jul-2016 Instruction Type:Patient Education How to access health informa tion online - Detail Indication:Vitamin D deficiency, unspecified Start:21-Jul-2016 Instruction Type:Patient Education Patient Instructions Indication:Vitamin D deficiency, unspecified Start:21-Jul-2016 Instruction Type:Provider Instructions for Treatment How to access health informa tion online Indication:Vitamin D deficiency, unspecified Start:01-Feb-2016 Instruction Type:Patient Education How to access health informa tion online - Detail Indication:Vitamin D deficiency, unspecified Start:01-Feb-2016 Instruction Type:Patient Education Patient Instructions Indication:Vitamin D deficiency, unspecified Start:01-Feb-2016 Instruction Type:Provider Instructions for Treatment How to access health informa tion online Indication:Unspecified asthma with (acute) exacerbation Start:04-Dec-2015 Instruction Type:Patient Education How to access health informa tion online - Detail Indication:Unspecified asthma with (acute) exacerbation Start:04-Dec-2015 Instruction Type:Patient Education Patient Instructions Indication:Unspecified asthma with (acute) exacerbation Start:04-Dec-2015 Instruction Type:Provider Instructions for Treatment How to access health informa tion online Indication:Recurrent cold sores Start:16-Oct-2015 Instruction Type:Patient Education How to access health informa tion online - Detail Indication:Recurrent cold sores Start:16-Oct-2015 Instruction Type:Patient Education Patient Instructions Indication:Recurrent cold sores Start:16-Oct-2015 Instruction Type:Provider Instructions for Treatment How to access health informa tion online Indication:Vitamin D deficiency, unspecified Start:16-Jul-2015 Instruction Type:Patient Education How to access health informa tion online - Detail Indication:Vitamin D deficiency, unspecified Start:16-Jul-2015 Instruction Type:Patient Education Patient Instructions Indication:Vitamin D deficiency, unspecified Start:16-Jul-2015 Instruction Type:Provider Instructions for Treatment How to access health informa tion online - Detail Indication:Obesity Start:16-Apr-2015 Instruction Type:Patient Education Patient Instructions Indication:Obesity Start:16-Apr-2015 Instruction Type:Provider Instructions for Treatment How to access health informa tion online Indication:Subcutaneous nodule Start:19-Mar-2015 Instruction Type:Patient Education How to access health informa tion online - Detail Indication:Subcutaneous nodule Start:19-Mar-2015 Instruction Type:Patient Education Patient Instructions Indication:Subcutaneous nodule Start:19-Mar-2015 Instruction Type:Provider Instructions for Treatment How to access health informa tion online Indication:Vitamin D deficiency, unspecified Start:22-Jan-2015 Instruction Type:Patient Education How to access health informa tion online - Detail Indication:Vitamin D deficiency, unspecified Start:22-Jan-2015 Instruction Type:Patient Education Patient Instructions Indication:Vitamin D deficiency, unspecified Start:22-Jan-2015 Instruction Type:Provider Instructions for Treatment Patient Instructions Indication:Obesity Start:29-Sep-2013 Instruction Type:Provider Instructions for Treatment Patient Instructions Indication:Fatigue Start:18-Jun-2012 Instruction Type:Provider Instructions for Treatment Name Dates Details How to access health informa tion online Indication:BMI 40.0-44.9, adult Start:27-Jun-2019 Instruction Type:Patient Education How to access health informa tion online - Detail Indication:BMI 40.0-44.9, adult Start:27-Jun-2019 Instruction Type:Patient Education Patient Instructions Indication:SOB (shortness of breath) Start:27-Jun-2019 Instruction Type:Provider Instructions for Treatment How to access health informa tion online Indication:Nonsmoker Start:27-Apr-2019 Instruction Type:Patient Education How to access health informa tion online - Detail Indication:Nonsmoker Start:27-Apr-2019 Instruction Type:Patient Education Patient Instructions Indication:Nonsmoker Start:27-Apr-2019 Instruction Type:Provider Instructions for Treatment How to access health informa tion online Indication:Nonsmoker Start:29-Dec-2018 Instruction Type:Patient Education How to access health informa tion online - Detail Indication:Nonsmoker Start:29-Dec-2018 Instruction Type:Patient Education Patient Instructions Indication:Nonsmoker Start:29-Dec-2018 Instruction Type:Provider Instructions for Treatment DISCONTINUED - TSH (THYROID STIMULATING HORMONE) (28722) Indication:Intrinsic asthma Start:09-Aug-2018 Instruction Type:Patient Education DISCONTINUED - METABOLIC MANRIQUE EL, COMPREHENSIVE (17593) Indication:GERD (gastroesophageal reflux disease) Start:09-Aug-2018 Instruction Type:Patient Education DISCONTINUED - CBC, PLATELET S & MANUAL DIFF (83688) Indication:GERD (gastroesophageal reflux disease) Start:09-Aug-2018 Instruction Type:Patient Education How to access health informa tion online Indication:Nonsmoker Start:09-Aug-2018 Instruction Type:Patient Education How to access health informa tion online - Detail Indication:Nonsmoker Start:09-Aug-2018 Instruction Type:Patient Education Patient Instructions Indication:Encounter for screening for lipid disorder Start:09-Aug-2018 Instruction Type:Provider Instructions for Treatment How to access health informa tion online Indication:BMI 37.0-37.9, adult Start:29-Sep-2017 Instruction Type:Patient Education How to access health informa tion online - Detail Indication:BMI 37.0-37.9, adult Start:29-Sep-2017 Instruction Type:Patient Education Patient Instructions Indication:BMI 37.0-37.9, adult Start:29-Sep-2017 Instruction Type:Provider Instructions for Treatment How to access health informa tion online Indication:BMI 39.0-39.9,adult Start:01-Sep-2017 Instruction Type:Patient Education How to access health informa tion online - Detail Indication:BMI 39.0-39.9,adult Start:01-Sep-2017 Instruction Type:Patient Education Patient Instructions Indication:Upper respiratory virus Start:01-Sep-2017 Instruction Type:Provider Instructions for Treatment How to access health informa tion online Indication:Nonsmoker Start:03-Jul-2017 Instruction Type:Patient Education How to access health informa tion online - Detail Indication:Nonsmoker Start:03-Jul-2017 Instruction Type:Patient Education Patient Instructions Indication:Nonsmoker Start:03-Jul-2017 Instruction Type:Provider Instructions for Treatment How to access health informa tion online Indication:Impaired fasting glucose Start:09-Mar-2017 Instruction Type:Patient Education How to access health informa tion online - Detail Indication:Impaired fasting glucose Start:09-Mar-2017 Instruction Type:Patient Education Patient Instructions Indication:Impaired fasting glucose Start:09-Mar-2017 Instruction Type:Provider Instructions for Treatment How to access health informa tion online Indication:Intrinsic asthma Start:19-Nov-2016 Instruction Type:Patient Education How to access health informa tion online - Detail Indication:Intrinsic asthma Start:19-Nov-2016 Instruction Type:Patient Education Patient Instructions Indication:Intrinsic asthma Start:19-Nov-2016 Instruction Type:Provider Instructions for Treatment How to access health informa tion online Indication:Vitamin D deficiency, unspecified Start:21-Jul-2016 Instruction Type:Patient Education How to access health informa tion online - Detail Indication:Vitamin D deficiency, unspecified Start:21-Jul-2016 Instruction Type:Patient Education Patient Instructions Indication:Vitamin D deficiency, unspecified Start:21-Jul-2016 Instruction Type:Provider Instructions for Treatment How to access health informa tion online Indication:Vitamin D deficiency, unspecified Start:01-Feb-2016 Instruction Type:Patient Education How to access health informa tion online - Detail Indication:Vitamin D deficiency, unspecified Start:01-Feb-2016 Instruction Type:Patient Education Patient Instructions Indication:Vitamin D deficiency, unspecified Start:01-Feb-2016 Instruction Type:Provider Instructions for Treatment How to access health informa tion online Indication:Unspecified asthma with (acute) exacerbation Start:04-Dec-2015 Instruction Type:Patient Education How to access health informa tion online - Detail Indication:Unspecified asthma with (acute) exacerbation Start:04-Dec-2015 Instruction Type:Patient Education Patient Instructions Indication:Unspecified asthma with (acute) exacerbation Start:04-Dec-2015 Instruction Type:Provider Instructions for Treatment How to access health informa tion online Indication:Recurrent cold sores Start:16-Oct-2015 Instruction Type:Patient Education How to access health informa tion online - Detail Indication:Recurrent cold sores Start:16-Oct-2015 Instruction Type:Patient Education Patient Instructions Indication:Recurrent cold sores Start:16-Oct-2015 Instruction Type:Provider Instructions for Treatment How to access health informa tion online Indication:Vitamin D deficiency, unspecified Start:16-Jul-2015 Instruction Type:Patient Education How to access health informa tion online - Detail Indication:Vitamin D deficiency, unspecified Start:16-Jul-2015 Instruction Type:Patient Education Patient Instructions Indication:Vitamin D deficiency, unspecified Start:16-Jul-2015 Instruction Type:Provider Instructions for Treatment How to access health informa tion online - Detail Indication:Obesity Start:16-Apr-2015 Instruction Type:Patient Education Patient Instructions Indication:Obesity Start:16-Apr-2015 Instruction Type:Provider Instructions for Treatment How to access health informa tion online Indication:Subcutaneous nodule Start:19-Mar-2015 Instruction Type:Patient Education How to access health informa tion online - Detail Indication:Subcutaneous nodule Start:19-Mar-2015 Instruction Type:Patient Education Patient Instructions Indication:Subcutaneous nodule Start:19-Mar-2015 Instruction Type:Provider Instructions for Treatment How to access health informa tion online Indication:Vitamin D deficiency, unspecified Start:22-Jan-2015 Instruction Type:Patient Education How to access health informa tion online - Detail Indication:Vitamin D deficiency, unspecified Start:22-Jan-2015 Instruction Type:Patient Education Patient Instructions Indication:Vitamin D deficiency, unspecified Start:22-Jan-2015 Instruction Type:Provider Instructions for Treatment Patient Instructions Indication:Obesity Start:29-Sep-2013 Instruction Type:Provider Instructions for Treatment Patient Instructions Indication:Fatigue Start:18-Jun-2012 Instruction Type:Provider Instructions for Treatment Name Dates Details Nonsmoker : How to access he alth information online Indication:Nonsmoker Nonsmoker : How to access he alth information online - Detail Indication:Nonsmoker Nonsmoker : Patient Instruct ions Indication:Nonsmoker Intrinsic asthma : DISCONTIN UED - TSH (THYROID STIMULATING HORMONE) (25434) Indication:Intrinsic asthma GERD (gastroesophageal reflu x disease) : DISCONTINUED - METABOLIC PANEL, COMPREHENSIVE ([id number]) Indication:GERD (gastroesophageal reflux disease) GERD (gastroesophageal reflu x disease) : DISCONTINUED - CBC, PLATELETS & MANUAL DIFF ([id number]) Indication:GERD (gastroesophageal reflux disease) Encounter for screening for lipid disorder : Patient Instructions Indication:Encounter for screening for lipid disorder BMI 37.0-37.9, adult : How t o access health information online Indication:BMI 37.0-37.9, adult BMI 37.0-37.9, adult : How t o access health information online - Detail Indication:BMI 37.0-37.9, adult BMI 37.0-37.9, adult : Patie nt Instructions Indication:BMI 37.0-37.9, adult BMI 39.0-39.9,adult : How to access health information online Indication:BMI 39.0-39.9,adult BMI 39.0-39.9,adult : How to access health information online - Detail Indication:BMI 39.0-39.9,adult Upper respiratory virus : Pa tient Instructions Indication:Upper respiratory virus Impaired fasting glucose : H ow to access health information online Indication:Impaired fasting glucose Impaired fasting glucose : H ow to access health information online - Detail Indication:Impaired fasting glucose Impaired fasting glucose : P atient Instructions Indication:Impaired fasting glucose Intrinsic asthma : How to ac cess health information online Indication:Intrinsic asthma Intrinsic asthma : How to ac cess health information online - Detail Indication:Intrinsic asthma Intrinsic asthma : Patient I nstructions Indication:Intrinsic asthma Vitamin D deficiency, unspec ified : How to access health information online Indication:Vitamin D deficiency, unspecified Vitamin D deficiency, unspec ified : How to access health information online - Detail Indication:Vitamin D deficiency, unspecified Vitamin D deficiency, unspec ified : Patient Instructions Indication:Vitamin D deficiency, unspecified Unspecified asthma with (acu te) exacerbation : How to access health information online Indication:Unspecified asthma with (acute) exacerbation Unspecified asthma with (acu te) exacerbation : How to access health information online - Detail Indication:Unspecified asthma with (acute) exacerbation Unspecified asthma with (acu te) exacerbation : Patient Instructions Indication:Unspecified asthma with (acute) exacerbation Recurrent cold sores : How t o access health information online Indication:Recurrent cold sores Recurrent cold sores : How t o access health information online - Detail Indication:Recurrent cold sores Recurrent cold sores : Patie nt Instructions Indication:Recurrent cold sores Obesity : How to access heal th information online - Detail Indication:Obesity Obesity : Patient Instructio ns Indication:Obesity Subcutaneous nodule : How to access health information online Indication:Subcutaneous nodule Subcutaneous nodule : How to access health information online - Detail Indication:Subcutaneous nodule Subcutaneous nodule : Patien t Instructions Indication:Subcutaneous nodule Fatigue : Patient Instructio ns Indication:Fatigue Name Dates Details How to access health informa tion online Indication:Nonsmoker Start:29-Dec-2018 Instruction Type:Patient Education How to access health informa tion online - Detail Indication:Nonsmoker Start:29-Dec-2018 Instruction Type:Patient Education Patient Instructions Indication:Nonsmoker Start:29-Dec-2018 Instruction Type:Provider Instructions for Treatment DISCONTINUED - TSH (THYROID STIMULATING HORMONE) (19028) Indication:Intrinsic asthma Start:09-Aug-2018 Instruction Type:Patient Education DISCONTINUED - METABOLIC MANRIQUE EL, COMPREHENSIVE (30549) Indication:GERD (gastroesophageal reflux disease) Start:09-Aug-2018 Instruction Type:Patient Education DISCONTINUED - CBC, PLATELET S & MANUAL DIFF ([id number]) Indication:GERD (gastroesophageal reflux disease) Start:09-Aug-2018 Instruction Type:Patient Education How to access health informa tion online Indication:Nonsmoker Start:09-Aug-2018 Instruction Type:Patient Education How to access health informa tion online - Detail Indication:Nonsmoker Start:09-Aug-2018 Instruction Type:Patient Education Patient Instructions Indication:Encounter for screening for lipid disorder Start:09-Aug-2018 Instruction Type:Provider Instructions for Treatment How to access health informa tion online Indication:BMI 37.0-37.9, adult Start:29-Sep-2017 Instruction Type:Patient Education How to access health informa tion online - Detail Indication:BMI 37.0-37.9, adult Start:29-Sep-2017 Instruction Type:Patient Education Patient Instructions Indication:BMI 37.0-37.9, adult Start:29-Sep-2017 Instruction Type:Provider Instructions for Treatment How to access health informa tion online Indication:BMI 39.0-39.9,adult Start:01-Sep-2017 Instruction Type:Patient Education How to access health informa tion online - Detail Indication:BMI 39.0-39.9,adult Start:01-Sep-2017 Instruction Type:Patient Education Patient Instructions Indication:Upper respiratory virus Start:01-Sep-2017 Instruction Type:Provider Instructions for Treatment How to access health informa tion online Indication:Nonsmoker Start:03-Jul-2017 Instruction Type:Patient Education How to access health informa tion online - Detail Indication:Nonsmoker Start:03-Jul-2017 Instruction Type:Patient Education Patient Instructions Indication:Nonsmoker Start:03-Jul-2017 Instruction Type:Provider Instructions for Treatment How to access health informa tion online Indication:Impaired fasting glucose Start:09-Mar-2017 Instruction Type:Patient Education How to access health informa tion online - Detail Indication:Impaired fasting glucose Start:09-Mar-2017 Instruction Type:Patient Education Patient Instructions Indication:Impaired fasting glucose Start:09-Mar-2017 Instruction Type:Provider Instructions for Treatment How to access health informa tion online Indication:Intrinsic asthma Start:19-Nov-2016 Instruction Type:Patient Education How to access health informa tion online - Detail Indication:Intrinsic asthma Start:19-Nov-2016 Instruction Type:Patient Education Patient Instructions Indication:Intrinsic asthma Start:19-Nov-2016 Instruction Type:Provider Instructions for Treatment How to access health informa tion online Indication:Vitamin D deficiency, unspecified Start:21-Jul-2016 Instruction Type:Patient Education How to access health informa tion online - Detail Indication:Vitamin D deficiency, unspecified Start:21-Jul-2016 Instruction Type:Patient Education Patient Instructions Indication:Vitamin D deficiency, unspecified Start:21-Jul-2016 Instruction Type:Provider Instructions for Treatment How to access health informa tion online Indication:Vitamin D deficiency, unspecified Start:01-Feb-2016 Instruction Type:Patient Education How to access health informa tion online - Detail Indication:Vitamin D deficiency, unspecified Start:01-Feb-2016 Instruction Type:Patient Education Patient Instructions Indication:Vitamin D deficiency, unspecified Start:01-Feb-2016 Instruction Type:Provider Instructions for Treatment How to access health informa tion online Indication:Unspecified asthma with (acute) exacerbation Start:04-Dec-2015 Instruction Type:Patient Education How to access health informa tion online - Detail Indication:Unspecified asthma with (acute) exacerbation Start:04-Dec-2015 Instruction Type:Patient Education Patient Instructions Indication:Unspecified asthma with (acute) exacerbation Start:04-Dec-2015 Instruction Type:Provider Instructions for Treatment How to access health informa tion online Indication:Recurrent cold sores Start:16-Oct-2015 Instruction Type:Patient Education How to access health informa tion online - Detail Indication:Recurrent cold sores Start:16-Oct-2015 Instruction Type:Patient Education Patient Instructions Indication:Recurrent cold sores Start:16-Oct-2015 Instruction Type:Provider Instructions for Treatment How to access health informa tion online Indication:Vitamin D deficiency, unspecified Start:16-Jul-2015 Instruction Type:Patient Education How to access health informa tion online - Detail Indication:Vitamin D deficiency, unspecified Start:16-Jul-2015 Instruction Type:Patient Education Patient Instructions Indication:Vitamin D deficiency, unspecified Start:16-Jul-2015 Instruction Type:Provider Instructions for Treatment How to access health informa tion online - Detail Indication:Obesity Start:16-Apr-2015 Instruction Type:Patient Education Patient Instructions Indication:Obesity Start:16-Apr-2015 Instruction Type:Provider Instructions for Treatment How to access health informa tion online Indication:Subcutaneous nodule Start:19-Mar-2015 Instruction Type:Patient Education How to access health informa tion online - Detail Indication:Subcutaneous nodule Start:19-Mar-2015 Instruction Type:Patient Education Patient Instructions Indication:Subcutaneous nodule Start:19-Mar-2015 Instruction Type:Provider Instructions for Treatment How to access health informa tion online Indication:Vitamin D deficiency, unspecified Start:22-Jan-2015 Instruction Type:Patient Education How to access health informa tion online - Detail Indication:Vitamin D deficiency, unspecified Start:22-Jan-2015 Instruction Type:Patient Education Patient Instructions Indication:Vitamin D deficiency, unspecified Start:22-Jan-2015 Instruction Type:Provider Instructions for Treatment Patient Instructions Indication:Obesity Start:29-Sep-2013 Instruction Type:Provider Instructions for Treatment Patient Instructions Indication:Fatigue Start:18-Jun-2012 Instruction Type:Provider Instructions for Treatment Name Dates Details How to access health informa tion online Indication:Nonsmoker Start:27-Apr-2019 Instruction Type:Patient Education How to access health informa tion online - Detail Indication:Nonsmoker Start:27-Apr-2019 Instruction Type:Patient Education Patient Instructions Indication:Nonsmoker Start:27-Apr-2019 Instruction Type:Provider Instructions for Treatment How to access health informa tion online Indication:Nonsmoker Start:29-Dec-2018 Instruction Type:Patient Education How to access health informa tion online - Detail Indication:Nonsmoker Start:29-Dec-2018 Instruction Type:Patient Education Patient Instructions Indication:Nonsmoker Start:29-Dec-2018 Instruction Type:Provider Instructions for Treatment DISCONTINUED - TSH (THYROID STIMULATING HORMONE) (82999) Indication:Intrinsic asthma Start:09-Aug-2018 Instruction Type:Patient Education DISCONTINUED - METABOLIC MANRIQUE EL, COMPREHENSIVE (62861) Indication:GERD (gastroesophageal reflux disease) Start:09-Aug-2018 Instruction Type:Patient Education DISCONTINUED - CBC, PLATELET S & MANUAL DIFF (44257) Indication:GERD (gastroesophageal reflux disease) Start:09-Aug-2018 Instruction Type:Patient Education How to access health informa tion online Indication:Nonsmoker Start:09-Aug-2018 Instruction Type:Patient Education How to access health informa tion online - Detail Indication:Nonsmoker Start:09-Aug-2018 Instruction Type:Patient Education Patient Instructions Indication:Encounter for screening for lipid disorder Start:09-Aug-2018 Instruction Type:Provider Instructions for Treatment How to access health informa tion online Indication:BMI 37.0-37.9, adult Start:29-Sep-2017 Instruction Type:Patient Education How to access health informa tion online - Detail Indication:BMI 37.0-37.9, adult Start:29-Sep-2017 Instruction Type:Patient Education Patient Instructions Indication:BMI 37.0-37.9, adult Start:29-Sep-2017 Instruction Type:Provider Instructions for Treatment How to access health informa tion online Indication:BMI 39.0-39.9,adult Start:01-Sep-2017 Instruction Type:Patient Education How to access health informa tion online - Detail Indication:BMI 39.0-39.9,adult Start:01-Sep-2017 Instruction Type:Patient Education Patient Instructions Indication:Upper respiratory virus Start:01-Sep-2017 Instruction Type:Provider Instructions for Treatment How to access health informa tion online Indication:Nonsmoker Start:03-Jul-2017 Instruction Type:Patient Education How to access health informa tion online - Detail Indication:Nonsmoker Start:03-Jul-2017 Instruction Type:Patient Education Patient Instructions Indication:Nonsmoker Start:03-Jul-2017 Instruction Type:Provider Instructions for Treatment How to access health informa tion online Indication:Impaired fasting glucose Start:09-Mar-2017 Instruction Type:Patient Education How to access health informa tion online - Detail Indication:Impaired fasting glucose Start:09-Mar-2017 Instruction Type:Patient Education Patient Instructions Indication:Impaired fasting glucose Start:09-Mar-2017 Instruction Type:Provider Instructions for Treatment How to access health informa tion online Indication:Intrinsic asthma Start:19-Nov-2016 Instruction Type:Patient Education How to access health informa tion online - Detail Indication:Intrinsic asthma Start:19-Nov-2016 Instruction Type:Patient Education Patient Instructions Indication:Intrinsic asthma Start:19-Nov-2016 Instruction Type:Provider Instructions for Treatment How to access health informa tion online Indication:Vitamin D deficiency, unspecified Start:21-Jul-2016 Instruction Type:Patient Education How to access health informa tion online - Detail Indication:Vitamin D deficiency, unspecified Start:21-Jul-2016 Instruction Type:Patient Education Patient Instructions Indication:Vitamin D deficiency, unspecified Start:21-Jul-2016 Instruction Type:Provider Instructions for Treatment How to access health informa tion online Indication:Vitamin D deficiency, unspecified Start:01-Feb-2016 Instruction Type:Patient Education How to access health informa tion online - Detail Indication:Vitamin D deficiency, unspecified Start:01-Feb-2016 Instruction Type:Patient Education Patient Instructions Indication:Vitamin D deficiency, unspecified Start:01-Feb-2016 Instruction Type:Provider Instructions for Treatment How to access health informa tion online Indication:Unspecified asthma with (acute) exacerbation Start:04-Dec-2015 Instruction Type:Patient Education How to access health informa tion online - Detail Indication:Unspecified asthma with (acute) exacerbation Start:04-Dec-2015 Instruction Type:Patient Education Patient Instructions Indication:Unspecified asthma with (acute) exacerbation Start:04-Dec-2015 Instruction Type:Provider Instructions for Treatment How to access health informa tion online Indication:Recurrent cold sores Start:16-Oct-2015 Instruction Type:Patient Education How to access health informa tion online - Detail Indication:Recurrent cold sores Start:16-Oct-2015 Instruction Type:Patient Education Patient Instructions Indication:Recurrent cold sores Start:16-Oct-2015 Instruction Type:Provider Instructions for Treatment How to access health informa tion online Indication:Vitamin D deficiency, unspecified Start:16-Jul-2015 Instruction Type:Patient Education How to access health informa tion online - Detail Indication:Vitamin D deficiency, unspecified Start:16-Jul-2015 Instruction Type:Patient Education Patient Instructions Indication:Vitamin D deficiency, unspecified Start:16-Jul-2015 Instruction Type:Provider Instructions for Treatment How to access health informa tion online - Detail Indication:Obesity Start:16-Apr-2015 Instruction Type:Patient Education Patient Instructions Indication:Obesity Start:16-Apr-2015 Instruction Type:Provider Instructions for Treatment How to access health informa tion online Indication:Subcutaneous nodule Start:19-Mar-2015 Instruction Type:Patient Education How to access health informa tion online - Detail Indication:Subcutaneous nodule Start:19-Mar-2015 Instruction Type:Patient Education Patient Instructions Indication:Subcutaneous nodule Start:19-Mar-2015 Instruction Type:Provider Instructions for Treatment How to access health informa tion online Indication:Vitamin D deficiency, unspecified Start:22-Jan-2015 Instruction Type:Patient Education How to access health informa tion online - Detail Indication:Vitamin D deficiency, unspecified Start:22-Jan-2015 Instruction Type:Patient Education Patient Instructions Indication:Vitamin D deficiency, unspecified Start:22-Jan-2015 Instruction Type:Provider Instructions for Treatment Patient Instructions Indication:Obesity Start:29-Sep-2013 Instruction Type:Provider Instructions for Treatment Patient Instructions Indication:Fatigue Start:18-Jun-2012 Instruction Type:Provider Instructions for Treatment Advance Directives Name Dates Details Immunization Registry [place] - Effective on 08/09/2018. Expiration date unspecified Effective:09-Aug-2018 Name Dates Details Immunization Registry [place] - Effective on 08/09/2018. Expiration date unspecified Effective:09-Aug-2018 Name Dates Details Immunization Registry [place] - Effective on 08/09/2018. Expiration date unspecified Effective:09-Aug-2018 Name Dates Details Immunization Registry [place] - Effective on 08/09/2018. Expiration date unspecified Effective:09-Aug-2018 Name Dates Details Immunization Registry [place] - Effective on 08/09/2018. Expiration date unspecified Effective:09-Aug-2018 Name Dates Details Immunization Registry [place] - Effective on 08/09/2018. Expiration date unspecified Effective:09-Aug-2018 Name Dates Details Immunization Registry [place] - Effective on 08/09/2018. Expiration date unspecified Effective:09-Aug-2018 Name Dates Details Immunization Registry [place] - Effective on 08/09/2018. Expiration date unspecified Effective:09-Aug-2018 Name Dates Details Immunization Registry [place] - Effective on 08/09/2018. Expiration date unspecified Effective:09-Aug-2018 Name Dates Details Immunization Registry [place] - Effective on 08/09/2018. Expiration date unspecified Effective:09-Aug-2018 Name Dates Details Immunization Registry [place] - Effective on 08/09/2018. Expiration date unspecified Effective:09-Aug-2018 Name Dates Details Immunization Registry [place] - Effective on 08/09/2018. Expiration date unspecified Effective:09-Aug-2018 Name Dates Details Immunization Registry [place] - Effective on 08/09/2018. Expiration date unspecified Effective:09-Aug-2018 Name Dates Details Immunization Registry [place] - Effective on 08/09/2018. Expiration date unspecified Effective:09-Aug-2018 Name Dates Details Immunization Registry [place] - Effective on 08/09/2018. Expiration date unspecified Effective:09-Aug-2018 Name Dates Details Immunization Registry [place] - Effective on 08/09/2018. Expiration date unspecified Effective:09-Aug-2018 Name Dates Details Immunization Registry [place] - Effective on 08/09/2018. Expiration date unspecified Effective:09-Aug-2018 Name Dates Details Immunization Registry [place] - Effective on 08/09/2018. Expiration date unspecified Effective:09-Aug-2018 Name Dates Details Immunization Registry [place] - Effective on 08/09/2018. Expiration date unspecified Effective:09-Aug-2018 Name Dates Details Immunization Registry [place] - Effective on 08/09/2018. Expiration date unspecified Effective:09-Aug-2018 Advance Directive Response Recorded Date/ Time Living Will No August 27 022 9:20am Power of Executive Associate No August 27, 2022 9:20am Name Dates Details Immunization Registry [place] - Effective on 08/09/2018. Expiration date unspecified Effective:09-Aug-2018 Name Dates Details Immunization Registry [place] - Effective on 08/09/2018. Expiration date unspecified Effective:09-Aug-2018 Name Dates Details Immunization Registry [place] - Effective on 08/09/2018. Expiration date unspecified Effective:09-Aug-2018 Name Dates Details Immunization Registry [place] - Effective on 08/09/2018. Expiration date unspecified Effective:09-Aug-2018 Name Dates Details Immunization Registry [place] - Effective on 08/09/2018. Expiration date unspecified Effective:09-Aug-2018 Advance Directive Response Recorded Date/ Time Living Will No August 27 022 10:20am Power of Executive Associate No August 27, 2022 10:20am Name Dates Details Immunization Registry [place] - Effective on 08/09/2018. Expiration date unspecified Effective:09-Aug-2018 Name Dates Details Immunization Registry [place] - Effective on 08/09/2018. Expiration date unspecified Effective:09-Aug-2018 Name Dates Details Immunization Registry [place] - Effective on 08/09/2018. Expiration date unspecified Effective:09-Aug-2018 Name Dates Details Immunization Registry [place] - Effective on 08/09/2018. Expiration date unspecified Effective:09-Aug-2018 Family History Unknown Family Member Name Dates Details Brother 1 Comments:HTN Status:Active Father Comments:DM Status:Active Mother Comments:Diabetes, CAD, Stap h inf at 51 Status:Active Sister 1 Comments:DM Status:Active No Family History Records Found Relationship Condition Age at Onset Recorded Date/T isidra father Hypertension Unknown sister Hypertension Unknown brother Hypertension Unknown mother Diabetes mellitus Unknown Coronary artery disease Unknown Myocardial infarction Unknown Chief Complaint and Reason for Visit Chief Complaint LT HALLUX NAIL MATRI XECTOMY, RT ANKLE ARTHROSCOPY Reason for Visit Ankle impingement sy ndrome, right Ingrowing nail Primary osteoarthritis, right ankle and foot Right ankle instability Chief Complaint LT HALLUX NAIL MATRI XECTOMY, RT ANKLE ARTHROSCOPY PAIN & SWELLING BLE Reason for Visit Ankle impingement sy ndrome, right Ingrowing nail Primary osteoarthritis, right ankle and foot Right ankle instability Chief Complaint SCREENING Chief Complaint SCREENING LEFT KNEE room 2 LEFT KNEE PAIN Reason for Visit Mechanical pain of l eft knee Internal derangement of knee Chief Complaint LEFT KNEE room 2 LEFT KNEE PAIN Reason for Visit Mechanical pain of l eft knee Internal derangement of knee Chief Complaint Amb Documentation EST / ABN LABS (DHEA) (SELF) Z78.0 Reason for Visit Hyperlipidemia Chief Complaint Admit Date SCREENING April 05, 2025 11:4 9am Summary Purpose Reason for Referral Specialty Diagnoses / Procedures Referred By Contac t Referred To Contact [facility] Diagnoses Secondary lymphedema Procedures CONSULT TO LYMPHEDEMA THERAPY OFFICE/OUTPATIENT [facility] 60 MINUTES Toshia Huston DO [address] [place] [address] [facility] [address] [place] [address] Referral ID Status Reason Start Date Expiration Date Visits Requested Visits Authorized [id number] Authorized Auto-Generat ed Referral 03/29/2024 03/29/2025 1 1 Additional Source Comments Goals (unrecognized section and content) Goals may be documented in a n alternate sectionGoals may be documented in an alternate sectionGoals may be documented in an alternate sectionGoals may be documented in an alternate sectionGoals may be documented in an alternate sectionGoals may be documented in an alternate sectionGoals may be documented in an alternate sectionGoals may be documented in an alternate section No Information Available No Information Available Source Comments (unrecognize d section and content) In the event this informatio n is protected by the Federal Confidentiality of Alcohol and Drug Abuse Patient Records regulations: The Federal rules restrict any use of the information to criminally investigate or prosecute any alcohol or drug abuse patient.[facility] the event this information is protected by the Federal Confidentiality of Alcohol and Drug Abuse Patient Records regulations: The Federal rules restrict any use of the information to criminally investigate or prosecute any alcohol or drug abuse patient.[facility] the event this information is protected by the Federal Confidentiality of Alcohol and Drug Abuse Patient Records regulations: The Federal rules restrict any use of the information to criminally investigate or prosecute any alcohol or drug abuse patient.[facility] the event this information is protected by the Federal Confidentiality of Alcohol and Drug Abuse Patient Records regulations: The Federal rules restrict any use of the information to criminally investigate or prosecute any alcohol or drug abuse patient.[facility] the event this information is protected by the Federal Confidentiality of Alcohol and Drug Abuse Patient Records regulations: The Federal rules restrict any use of the information to criminally investigate or prosecute any alcohol or drug abuse patient.[facility] the event this information is protected by the Federal Confidentiality of Alcohol and Drug Abuse Patient Records regulations: The Federal rules restrict any use of the information to criminally investigate or prosecute any alcohol or drug abuse patient.[facility] the event this information is protected by the Federal Confidentiality of Alcohol and Drug Abuse Patient Records regulations: The Federal rules restrict any use of the information to criminally investigate or prosecute any alcohol or drug abuse patient.[facility] the event this information is protected by the Federal Confidentiality of Alcohol and Drug Abuse Patient Records regulations: The Federal rules restrict any use of the information to criminally investigate or prosecute any alcohol or drug abuse patient.[facility] the event this information is protected by the Federal Confidentiality of Alcohol and Drug Abuse Patient Records regulations: The Federal rules restrict any use of the information to criminally investigate or prosecute any alcohol or drug abuse patient.[facility] the event this information is protected by the Federal Confidentiality of Alcohol and Drug Abuse Patient Records regulations: The Federal rules restrict any use of the information to criminally investigate or prosecute any alcohol or drug abuse patient.[facility] the event this information is protected by the Federal Confidentiality of Alcohol and Drug Abuse Patient Records regulations: The Federal rules restrict any use of the information to criminally investigate or prosecute any alcohol or drug abuse patient.[facility] the event this information is protected by the Federal Confidentiality of Alcohol and Drug Abuse Patient Records regulations: The Federal rules restrict any use of the information to criminally investigate or prosecute any alcohol or drug abuse patient.[facility] the event this information is protected by the Federal Confidentiality of Alcohol and Drug Abuse Patient Records regulations: The Federal rules restrict any use of the information to criminally investigate or prosecute any alcohol or drug abuse patient.[facility] the event this information is protected by the Federal Confidentiality of Alcohol and Drug Abuse Patient Records regulations: The Federal rules restrict any use of the information to criminally investigate or prosecute any alcohol or drug abuse patient.[facility] the event this information is protected by the Federal Confidentiality of Alcohol and Drug Abuse Patient Records regulations: The Federal rules restrict any use of the information to criminally investigate or prosecute any alcohol or drug abuse patient.[facility]In the event this information is protected by the Federal Confidentiality of Alcohol and Drug Abuse Patient Records regulations: The Federal rules restrict any use of the information to criminally investigate or prosecute any alcohol or drug abuse patient.[facility]In the event this information is protected by the Federal Confidentiality of Alcohol and Drug Abuse Patient Records regulations: The Federal rules restrict any use of the information to criminally investigate or prosecute any alcohol or drug abuse patient.[facility]In the event this information is protected by the Federal Confidentiality of Alcohol and Drug Abuse Patient Records regulations: The Federal rules restrict any use of the information to criminally investigate or prosecute any alcohol or drug abuse patient.[facility]In the event this information is protected by the Federal Confidentiality of Alcohol and Drug Abuse Patient Records regulations: The Federal rules restrict any use of the information to criminally investigate or prosecute any alcohol or drug abuse patient.[facility] Reason for Visit (unrecogniz ed section and content) right hand pain, Test Result Reason Onset Date Comments New Patient Iud consult Immunizations 07/09/2022 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 Reason Comments New Patient Reason Comments Established Patient Reason Comments Procedure Left leg GSV EVLT Reason Comments Patient Question Meds/Left leg sympto ms post EVLT Reason Comments Procedure Right leg EVLT Reason Comments Clinical Update Reason Comments Established Patient Reason Comments Forms Care Teams (unrecognized sec tion and content) 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 Cheng Burrell DPM Attending Provider, Referring Provider Active Team Status: Inactive Member Role Status Dates Zahraa Ivey METAL TECHNICIAN-C Primary Care Provider Active Dr. Cheng Burrell DPM Attending Provider Active Team Status: Inactive Member Role Status Dates Zahraa Ivey NP-C Primary Care Provi alexandrea, Attending Provider, Referring Provider Active Team Status: Inactive Member Role Status Dates Zahraa Ivey NP-C Primary Care Provider, Referring Provider Active Dr. Gen Prajapati DO Attending Provider Active Team Status: Inactive Member Role Status Dates Zahraa Ivey NP-C Primary Care Provider Active Dr. Anthony Panchal MD Attending Provider Active Team Status: Inactive Member Role Status Dates Zahraa Ivey METAL TECHNICIAN-C Primary Care Provider Active Dr. Gen Prajapait DO Attending Provider, Referring Provider Active Team Status: Active Member Role Status Dates Zahraa Ivey METAL TECHNICIAN-C Primary Care Provider Active Carmella Martinez RN Attending Provider Active Team Status: Inactive Member Role Status Dates Zahraa Ivey NP-C Primary Care Provider, Referring Provider Active Dr. Anthony Panchal MD Attending Provider Active Remotely Piloted Vehicle Controller Relationship Specialty Start Date End Date Jignesh Gibson MD PCP - General Internal Medicine 01/27/12 Remotely Piloted Vehicle Controller Relationship Specialty Start Date End Date Jignesh Gibson MD PCP - General Internal Medicine 01/27/12 Remotely Piloted Vehicle Controller Relationship Specialty Start Date End Date Jignesh Gibson MD PCP - General Internal Medicine 01/27/12 Remotely Piloted Vehicle Controller Relationship Specialty Start Date End Date Jignesh Gibson MD PCP - General Internal Medicine 01/27/12 Remotely Piloted Vehicle Controller Relationship Specialty Start Date End Date Jignesh Gibson MD PCP - General Internal Medicine 01/27/12 Remotely Piloted Vehicle Controller Relationship Specialty Start Date End Date Jignesh Gibson MD PCP - General Internal Medicine 01/27/12 Remotely Piloted Vehicle Controller Relationship Specialty Start Date End Date Jignesh Gibson MD PCP - General Internal Medicine 01/27/12 Remotely Piloted Vehicle Controller Relationship Specialty Start Date End Date Jignesh Gibson MD PCP - General Internal Medicine 01/27/12 Team Status: Active Member Role Status Dates YENY Mosley Primary Care Provider Active Team Status: Inactive Member Role Status Dates YENY Mosley Primary Care Provider Active Start: December 07, 2024 End: December 07, 2024 YENY Mosley Attending Provider Active Start: December 07, 2024 End: December 07, 2024 YENY Mosley Referring Provider Active Start: December 07, 2024 End: December 07, 2024 Remotely Piloted Vehicle Controller Relationship Specialty Start Date End Date Jignesh Gibson MD PCP - General Internal Medicine 01/27/12 Remotely Piloted Vehicle Controller Relationship Specialty Start Date End Date Jignesh Gibson MD PCP - General Internal Medicine 01/27/12 Remotely Piloted Vehicle Controller Relationship Specialty Start Date End Date Jignesh Gibson MD PCP - General Internal Medicine 01/27/12 Team Status: Active Member Role/Relationship Status Dates YENY Mosley Primary Care Provider Active Team Status: Inactive Member Role/Relationship Status Dates YENY Mosley Primary Care Provider Active Start: April 05, 2025 End: April 05, 2025 YENY Mosley Attending Provider Active Start: April 05, 2025 End: April 05, 2025 YENY Mosley Referring Provider Active Start: April 05, 2025 End: April 05, 2025 INFORMATION SOURCE (unrecogn ized section and content) DATE CREATED AUTHOR 12/24/2022 [facility] DATE CREATED AUTHOR AUTHOR'S ORGANIZ ATION 03/07/2025 [facility] DATE CREATED AUTHOR AUTHOR'S ORGANIZ ATION 07/09/2025 [facility] FOR RECORDS PERTAINING TO PATIENTS WHO ARE OR HAVE BEEN ENROLLED IN A CHEMICAL DEPENDENCY/SUBSTANCEABUSE PROGRAM, SOME INFORMATION MAY BE OMITTED. This clinical summary was aggregated from multiple sources. Caution should be exercised in using it in the provision of clinical care. This summary normalizes information from multiple sources, and as a consequence, information in this document may materially change the coding, format and clinical context of patient data. In addition, data may be omitted in some cases. CLINICAL DECISIONS SHOULD BE BASED ON THE PRIMARY CLINICAL RECORDS. [employer] [facility]. provides no warranty or guarantee of the accuracy or [phone] in [phone] [id number]
[2025-09-13 07:41] LABS: Anion Gap 9 (7-18); BUN 13 mg/dL (4-19); BUN/Creat Ratio 20.1 RATIO (10-20); Calcium,Total 8.9 mg/dL (7.6-11.0); Carbon Dioxide 26.9 mmol/L (20.0-29.0); Chloride 105 mmol/L (96-106); Cholesterol 150 mg/dL (<=200); Glucose 106 mg/dL (70-99); Low Density Lipoprotein Calc. 93 mg/dL; Potassium 4.2 mmol/L (3.5-5.1); Triglycerides 74 mg/dL; Very Low Density Lipoprotein 15 mg/dL (5-40); cholesterol:hdl ratio screen 3.57
== END | disposition home or self-care (01) ==
LOC: LAB 06:11
PROVIDERS: PCP Nurse Practitioner Family; Referring Provider Nurse Practitioner Family; Visit Provider Nurse Practitioner Family
DX: E78.5 Hyperlipidemia, unspecified (principal)
CPT/HCPCS: 36415; 80048; 80061